=== PATIENT | female | born 1990 | race Caucasian/White ===

== ENCOUNTER → 2020-11-11 15:23 | Outpatient (CLI) | payer BC, SELFPAY ==
[2020-11-11 14:39] VITALS: BMI 40.4
[2020-11-11 15:45] LABS: Absolute Neutrophil Count 8.6 X10^3/uL (2.0-7.7); Basophil# 0.04 X10^3/uL; Basophil% 0.3 % (0-1); Eosinophil# 0.12 X10^3/uL; Eosinophils% 0.9 % (0-5); Hematocrit 46.1 % (37-47); Hemoglobin 15.1 g/dL (12.0-15.0); Lymphocyte % 26.3 % (19-41); Mean Corp Hgb Conc 32.8 g/dL (32-36); Mean Corpuscular Hgb 29.6 pg (27.0-32.0); Mean Corpuscular Volume 90.4 fL (81-99); Monocyte# 0.72 X10^3/uL; Monocyte% 5.6 % (0-10); NRBC Flagged by Analyzer 0 % (0-5); Neutrophil % 66.4 % (47-70); Platelet Count 350 K/mm3 (150-450); RBC Distribution Width CV 11.8 % (11.6-14.6); RBC Distribution Width SD 39.2 fl (35.1-43.9); White Blood Count 12.9 K/mm3 (4.4-11.0)
[2020-11-11 16:50] LABS: HIV - WCH Non-Reactive (Nonreactive); Hepatitis B Surface Antigen Non-Reactive (Nonreactive); Hepatitis C Antibody Non-Reactive (Nonreactive); Rubella IgG Reactive (Nonreactive); Syphilis Antibodies Non-reactive
[2020-11-11 18:09] LABS: Amphetamine Urine VISTA NEGATIVE (<1000 ng/mL); Barbiturate Urine VISTA NEGATIVE (< 200 ng/mL); Benzodiazepine Urine VISTA NEGATIVE (< 200 ng/mL); Cocaine Urine VISTA NEGATIVE (< 300 ng/mL); Ecstacy Urine VISTA NEGATIVE (< 500 ng/mL); Methadone Urine VISTA NEGATIVE (< 300 ng/mL); PCP Urine VISTA NEGATIVE (< 25 ng/mL); THC Urine VISTA NEGATIVE (< 50 ng/mL); Vista UDS pH Range 5
[2020-11-14 06:08] LABS: Chlamydia By Nucleic Acid AMP Negative (Negative)
[2020-11-14 16:28] LABS: Gonococcus By Nucleic Acid AMP Negative (Negative)
== END ==
PROVIDERS: Referring Provider Obstetrics & Gynecology; Visit Provider Obstetrics & Gynecology
DX: O09.90 Supervision of high risk pregnancy, unspecified, unspecified trimester (principal); Z3A.00 Weeks of gestation of pregnancy not specified
CPT/HCPCS: 36415; 80307; 85025; 86703; 86762; 86780; 86803; 86850; 86900; 86901; 87086; 87088; 87340; 87491; 87591

== ENCOUNTER → 2021-03-31 10:13 | Outpatient (CLI) | payer BC, SELFPAY ==
[2021-03-31 10:35] LABS: Absolute Lymphocyte Count 2.02 X10^3/uL (0.83-4.51); Absolute Neutrophil Count 8.9 X10^3/uL (2.0-7.7); Basophil# 0.03 X10^3/uL; Basophil% 0.3 % (0-1); Eosinophil# 0.21 X10^3/uL; Eosinophils% 1.8 % (0-5); Hemoglobin 12.7 g/dL (12.0-15.0); Lymphocyte # 2.02 X10^3/ul (0.83-4.51); Lymphocyte % 17.1 % (19-41); Mean Corp Hgb Conc 33.4 g/dL (32-36); Mean Corpuscular Hgb 30.2 pg (27.0-32.0); Mean Corpuscular Volume 90.5 fL (81-99); Mean Platelet Vol. 9.2 fl (6.2-12.0); Monocyte# 0.52 X10^3/uL; Monocyte% 4.4 % (0-10); NRBC Flagged by Analyzer 0 % (0-5); Neutrophil # 8.91 X10^3/uL (2.7-7.7); Neutrophil % 75.6 % (47-70); Platelet Count 296 K/mm3 (150-450); RBC Distribution Width CV 13.7 % (11.6-14.6); RBC Distribution Width SD 45.1 fl (35.1-43.9); White Blood Count 11.8 K/mm3 (4.4-11.0)
== END ==
PROVIDERS: Referring Provider Obstetrics & Gynecology; Visit Provider Obstetrics & Gynecology
DX: O09.90 Supervision of high risk pregnancy, unspecified, unspecified trimester (principal); Z3A.00 Weeks of gestation of pregnancy not specified
CPT/HCPCS: 36415; 85025

== ENCOUNTER → 2021-04-28 12:37 | Outpatient (CLI) | payer BC, SELFPAY ==
[2021-03-10 13:53] VITALS: BMI 38.7
--- NOTE | 2021-04-28 12:41 | US_ITS ---
STUDY: SECOND AND THIRD TRIMESTER OBSTETRICAL ULTRASOUND REASON FOR EXAM: Female, 30 years old growth -- 32 weeks LMP: 09/15/2020. TECHNIQUE: Transabdominal TECHNICAL QUALITY: Adequate. PRIOR ULTRASOUND: None. FINDINGS: There is a single intrauterine fetus. The fetus is in a cephalic presentation. There is demonstrated cardiac activity with a heart rate of 137 bpm. There is a normal amniotic fluid volume. The largest amniotic fluid pocket measures 6.1 cm. The amniotic fluid index (BELLA) is 15 cm. The placenta is anterior in location and is not low lying. There are Grade 0 placental changes. The cervix measures 5.6 cm in length. The adnexal regions are not visualized. BIOMETRY: BPD: 7.6 cm: 30 weeks, 2 days HC: 28.1 cm: 30 weeks, 5 days AC: 30.9 cm: 34 weeks, 5 days FL: 6.1 cm: 31 weeks, 5 days CI: 80% FL/BPD: 81% FL/HC: FL/AC: 20% HC/AC: 0.91 age by current US: 31 weeks, 1 days. GIANFRANCO by current US: 06/29/2021. Estimated weight: 2173 grams, +/- 326 grams, 76 %. Age by LMP: 32 weeks, 1 days. GIANFRANCO by LMP: 06/22/2021. US/OB Limited With Biometrics IMPRESSION: Single live uterine gestation with a mean gestational age of 31 weeks and 1 day. Electronically Signed: Srinivas Shepherd MD at 13:48 EDT , Service support ,
== END ==
PROVIDERS: Referring Provider Obstetrics & Gynecology; Visit Provider Obstetrics & Gynecology
DX: E11.65 Type 2 diabetes mellitus with hyperglycemia (principal)
CPT/HCPCS: 76816

== ENCOUNTER → 2021-05-05 12:11 | Outpatient (CLI) | payer BC, SELFPAY ==
[2021-03-10 13:53] VITALS: BMI 38.7
--- NOTE | 2021-05-05 12:13 | US_ITS ---
STUDY: SECOND AND THIRD TRIMESTER OBSTETRICAL ULTRASOUND - LIMITED REASON FOR EXAM: Female, 30 years old BELLA 33 weeks LMP: 09/15/2020 PRIOR ULTRASOUND: 04/28/2021. TECHNIQUE: Transabdominal Limited pelvic ultrasound was performed. TECHNICAL QUALITY: Adequate. FINDINGS: There is a single intrauterine fetus. The fetus is in a cephalic presentation. There is demonstrated cardiac activity with a heart rate of 148 bpm. There is a normal amniotic fluid volume. The largest amniotic fluid pocket measures 4.63 cm. The amniotic fluid index (BELLA) is 16.90 cm. The placenta is anterior. The cervix measures 3.6 cm in length. Age by LMP: 33 weeks, 1 days. GIANFRANCO by LMP: 06/22/2021. age by prior US: 32 weeks, 4 days. GIANFRANCO by prior US: 06/29/2021. US/OB Limited (No Biometrics) IMPRESSION: Single viable intrauterine with a heart rate of 148 bpm Electronically Signed: Wily Ugarte MD at 15:58 EDT Tel , Service support ,
== END ==
PROVIDERS: Referring Provider Obstetrics & Gynecology; Visit Provider Obstetrics & Gynecology
DX: Z34.93 Encounter for supervision of normal pregnancy, unspecified, third trimester (principal)
CPT/HCPCS: 76815

== ENCOUNTER → 2021-05-12 12:11 | Outpatient (CLI) | payer BC, SELFPAY ==
[2021-03-10 13:53] VITALS: BMI 38.7
--- NOTE | 2021-05-12 12:12 | US_ITS ---
STUDY: SECOND AND THIRD TRIMESTER OBSTETRICAL ULTRASOUND - LIMITED REASON FOR EXAM: Female, 30 years old BELLA only . Type 2 diabetes. LMP: 09/15/2020. PRIOR ULTRASOUND: Comparison is made with prior examination dated 05/05/2021. TECHNIQUE: Transabdominal TECHNICAL QUALITY: Adequate. FINDINGS: There is a single intrauterine fetus. The fetus is in a cephalic presentation. There is demonstrated cardiac activity with a heart rate of 160 bpm. There is a normal amniotic fluid volume. The largest amniotic fluid pocket measures 8.1 cm. The amniotic fluid index (BELLA) is 19.4 cm. The placenta is anterior in location and is not low lying. There are Grade 0 placental changes. BIOMETRY: Age by LMP: 34 weeks, 1 days. GIANFRANCO by LMP: 06/22/2021. US/OB Limited (No Biometrics) IMPRESSION: Normal amniotic fluid. Electronically Signed: Srinivas Shepherd MD at 15:26 EDT , Service support ,
== END ==
PROVIDERS: Referring Provider Obstetrics & Gynecology; Visit Provider Obstetrics & Gynecology
DX: E11.65 Type 2 diabetes mellitus with hyperglycemia (principal)
CPT/HCPCS: 76815

== ENCOUNTER → 2021-05-19 12:04 | Outpatient (CLI) | payer BC, SELFPAY ==
[2021-03-10 13:53] VITALS: BMI 38.7
--- NOTE | 2021-05-19 12:07 | US_ITS ---
STUDY: SECOND AND THIRD TRIMESTER OBSTETRICAL ULTRASOUND - LIMITED REASON FOR EXAM: Female, 30 years old BELLA TYPE 2 DM LMP: 09/15/2020. PRIOR ULTRASOUND: Comparison is made with prior study 05/12/2021. TECHNIQUE: Transabdominal TECHNICAL QUALITY: Adequate. FINDINGS: There is a single intrauterine fetus. The fetus is in a cephalic presentation. There is demonstrated cardiac activity with a heart rate of 142 bpm. There is a normal amniotic fluid volume. The largest amniotic fluid pocket measures 8.1 cm. The amniotic fluid index (BELLA) is 18.6 cm. The placenta is posterior and low lying but not previa in location. There are Grade 0 placental changes. The cervix measures 3.7 cm in length. BIOMETRY: Age by LMP: 35 weeks, 1 days. GIANFRANCO by LMP: 06/22/2021.. US/OB Limited (No Biometrics) IMPRESSION: Normal amniotic fluid index. Electronically Signed: Srinivas Shepherd MD at 15:51 EDT , Service support ,
== END ==
PROVIDERS: Referring Provider Obstetrics & Gynecology; Visit Provider Obstetrics & Gynecology
DX: O24.919 Unspecified diabetes mellitus in pregnancy, unspecified trimester (principal); Z3A.00 Weeks of gestation of pregnancy not specified
CPT/HCPCS: 76815

== ENCOUNTER → 2021-05-26 12:21 | Outpatient (CLI) | payer BC, SELFPAY ==
[2021-03-10 13:53] VITALS: BMI 38.7
--- NOTE | 2021-05-26 12:25 | US_ITS ---
STUDY: OBSTETRICAL ULTRASOUND - BIOPHYSICAL PROFILE REASON FOR EXAM: Female, 30 years old GROWTH -- 36 WKS -- abnl nst LMP: 09/15/2020 PRIOR ULTRASOUND: Comparison is made with prior study dated 05/19/2021 TECHNIQUE: Transabdominal TECHNICAL QUALITY: Adequate. FINDINGS: BIOPHYSICAL PROFILE: Breathing Movements (FBM): 2 Gross Body Movements (GBM): 2 Tone (FT): 2 Amniotic Fluid Volume (AFV): 2 TOTAL SCORE: IMPRESSION: Normal biophysical profile of 03/09. Electronically Signed: Srinivas Shepherd MD at 14:46 EDT , Service support , STUDY: OBSTETRICAL ULTRASOUND - BIOPHYSICAL PROFILE REASON FOR EXAM: Female, 30 years old GROWTH -- 36 WKS -- abnl nst LMP: 09/15/2020 PRIOR ULTRASOUND: Comparison is made with prior study dated 05/19/2021 TECHNIQUE: Transabdominal TECHNICAL QUALITY: Adequate. FINDINGS: BIOPHYSICAL PROFILE: Breathing Movements (FBM): 2 Gross Body Movements (GBM): 2 Tone (FT): 2 Amniotic Fluid Volume (AFV): 2 TOTAL SCORE: US/OB Limited With Biometrics
== END ==
PROVIDERS: Referring Provider Obstetrics & Gynecology; Visit Provider Obstetrics & Gynecology
DX: O28.8 Other abnormal findings on antenatal screening of mother (principal); Z3A.00 Weeks of gestation of pregnancy not specified
CPT/HCPCS: 76816; 76819

== ENCOUNTER → 2021-06-02 12:34 | Outpatient (CLI) | payer BC, SELFPAY ==
[2021-03-10 13:53] VITALS: BMI 38.7
--- NOTE | 2021-06-02 12:37 | US_ITS ---
STUDY: SECOND AND THIRD TRIMESTER OBSTETRICAL ULTRASOUND - LIMITED REASON FOR EXAM: Female, 30 years old BELLA -- 37 weeks LMP: 09/15/2020. PRIOR ULTRASOUND: Comparison is made with prior examination 05/26/2021. TECHNIQUE: Transabdominal TECHNICAL QUALITY: Adequate. FINDINGS: There is a single intrauterine fetus. The fetus is in a cephalic presentation. There is demonstrated cardiac activity with a heart rate of 145 bpm. There is a normal amniotic fluid volume. The largest amniotic fluid pocket measures 7.5 cm. The amniotic fluid index (BELLA) is 20.9 cm. The placenta is anterior in location and is not low lying. There are Grade 1 placental changes. Age by LMP: 37 weeks, 1 days. GIANFRANCO by LMP: 06/22/2021. US/OB Limited (No Biometrics) IMPRESSION: Normal amniotic fluid. Electronically Signed: Srinivas Shepherd MD at 15:32 EDT , Service support ,
== END ==
PROVIDERS: Visit Provider Obstetrics & Gynecology
DX: O24.913 Unspecified diabetes mellitus in pregnancy, third trimester (principal); Z3A.37 37 weeks gestation of pregnancy; E11.65 Type 2 diabetes mellitus with hyperglycemia
CPT/HCPCS: 76815; 87081

== ENCOUNTER → 2021-06-09 12:09 | Outpatient (CLI) | payer BC, SELFPAY ==
[2021-03-10 13:53] VITALS: BMI 38.7
--- NOTE | 2021-06-09 12:12 | US_ITS ---
STUDY: SECOND AND THIRD TRIMESTER OBSTETRICAL ULTRASOUND - LIMITED REASON FOR EXAM: Female, 30 years old BELLA only LMP: 09/15/2020. PRIOR ULTRASOUND: Comparison is made with prior study of 06/02/2021. TECHNIQUE: Transabdominal TECHNICAL QUALITY: Adequate. FINDINGS: There is a single intrauterine fetus. The fetus is in a cephalic presentation. There is demonstrated cardiac activity with a heart rate of 157 bpm. There is a normal amniotic fluid volume. The largest amniotic fluid pocket measures 6.7 cm. The amniotic fluid index (BELLA) is 16.5 cm. BIOMETRY: Age by LMP: 38 weeks, 1 days. GIANFRANCO by LMP: 06/22/2021. US/OB Limited (No Biometrics) IMPRESSION: Normal amniotic fluid. Electronically Signed: Srinivas Shepherd MD at 13:27 EST , Service support ,
== END ==
PROVIDERS: Referring Provider Obstetrics & Gynecology; Visit Provider Obstetrics & Gynecology
DX: E11.65 Type 2 diabetes mellitus with hyperglycemia (principal)
CPT/HCPCS: 76815

== ENCOUNTER 2021-06-15 19:15 | Inpatient (IN) | payer BC, SELFPAY ==
[2021-06-15] VITALS (8 sets, daily range): BP systolic 129–161; BP diastolic 80–101; PULSE 102–118; TEMP 35.7–36.7; O2SAT 96–98; BMI 45.7
[2021-06-15] MEDS: Lactated Ringers 1,000 ML 50 ML IV (19:55)
[2021-06-15 20:16] LABS: Bedside Glucose 73 mg/dL (70-110)
[2021-06-15 20:18] LABS: Absolute Lymphocyte Count 2.67 X10^3/uL (0.83-4.51); Basophil# 0.02 X10^3/uL; Basophil% 0.2 % (0-1); Eosinophil# 0.09 X10^3/uL; Eosinophils% 0.7 % (0-5); Hematocrit 35.7 % (37-47); Hemoglobin 12.2 g/dL (12.0-15.0); Lymphocyte # 2.67 X10^3/ul (0.83-4.51); Lymphocyte % 21.1 % (19-41); Mean Corp Hgb Conc 34.2 g/dL (32-36); Mean Corpuscular Hgb 30.2 pg (27.0-32.0); Mean Corpuscular Volume 88.4 fL (81-99); Mean Platelet Vol. 10.1 fl (6.2-12.0); Monocyte% 6.3 % (0-10); NRBC Flagged by Analyzer 0 % (0-5); Neutrophil # 8.98 X10^3/uL (2.7-7.7); Neutrophil % 70.9 % (47-70); Platelet Count 285 K/mm3 (150-450); RBC Distribution Width CV 13.9 % (11.6-14.6); RBC Distribution Width SD 44.8 fl (35.1-43.9); Red Blood Count 4.04 M/mm3 (4.2-5.4); White Blood Count 12.7 K/mm3 (4.4-11.0)
[2021-06-15 21:36] LABS: Bedside Glucose 57 mg/dL (70-110)
[2021-06-15] MEDS: miSOPROStol 25 MCG TABLET VAGINAL (21:39)
[2021-06-15 21:51] LABS: Bedside Glucose 68 mg/dL (70-110)
[2021-06-15 22:06] LABS: Bedside Glucose 68 mg/dL (70-110)
[2021-06-15 22:21] LABS: Bedside Glucose 69 mg/dL (70-110)
[2021-06-16] VITALS (102 sets, daily range): BP systolic 109–161; BP diastolic 54–97; PULSE 69–244; TEMP 36.1–36.9; O2SAT 81–100
[2021-06-16] MEDS: miSOPROStol 25 MCG TABLET VAGINAL ×2 (01:51→06:16)
[2021-06-16 02:00] LABS: Bedside Glucose 77 mg/dL (70-110)
[2021-06-16 05:51] LABS: Bedside Glucose 87 mg/dL (70-110)
--- NOTE | 2021-06-16 07:25 | HP.PCM.OB_ITS ---
HPI - General General Date of Admission: 06/15/21 HPI Narrative ROBIN ALMAGUER, is a 30 F who presentsfor IOL sec diabetes Maternal Data Information GIANFRANCO Calculator Estimated Delivery Date Method Current WG Current Estimate 06/22/21 LMP (Certain) 39w 1d Other Estimates 06/26/21 Ultrasound #1 38w 4d PFSH PFS Medical History (Updated 06/15/21 @ 20:25 by Lexis Vera) Anxiety Diabetes in Diabetes mellitus Diabetes type 2, uncontrolled History of tetanus, diphtheria, and acellular pertussis booster vaccination (Tdap) Low-lying placenta in second trimester Obesity Home Medications metformin 500 mg tablet 500 mg PO DAILY 11/05/20 [History Last Taken 06/15/21 08:00] multivitamin no.47-iron fum 27 mg-folate no.1 1 mg-dha 300 mg capsule 1 cap PO DAILY 11/05/20 [History Last Taken 06/13/21 08:00] sertraline 50 mg tablet 50 mg PO DAILY 11/05/20 [History Last Taken 06/15/21 08:00] blood sugar diagnostic #10 each 11/14/20 [History Last Taken Unknown] blood-glucose meter #1 each 11/14/20 [History Last Taken Unknown] lancets #100 each 11/14/20 [History Last Taken Unknown] pen needle, diabetic 29 gauge x 1/2 #100 each 11/14/20 [History Last Taken Unknown] pen needle, diabetic 32 gauge x 5/32 #150 each 11/14/20 [Rx Last Taken Unknown] blood pressure test kit-large #1 ea 12/09/20 [Rx Last Taken Unknown] insulin NPH isoph U-100 human [Humulin N NPH Insulin KwikPen] 75 unit SUBCUT QHS 06/15/21 [History Last Taken Unknown] insulin lispro [Humalog KwikPen Insulin] 33 unit SC TID 06/15/21 [History Last Taken 06/15/21 16:30] Allergy/AdvReac Type Severity Reaction Status Date / Time No Known Allergies Allergy Verified 06/11/21 11:33 Family History Mother Diabetes type 2 Hypertension Father Hyperlipemia Sister Diabetes type 2 Grandmother Diabetes type 2 Surgical History (Updated 06/15/21 @ 20:25 by Lexis Vera) History of surgery History of tonsillectomy and adenoidectomy Social History adopted: No household members: family housing: house 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 pets and animals: No history of recent travel: No sexually active: Yes Smoking Status: Never smoker second hand exposure: No alcohol intake: never substance use type: does not use seatbelt use: always do you feel safe at home: Yes additional social history: - Slade ([facility] [place]) History 1 Elective abortions Hx Para 0 Spontaneous abortions Hx # Term Pregnancies Ectopic pregnancies Hx # Pregnancies Multiple births # of living children Visit Details Expected Delivery Route/Plan Labor Preferences- CB/BF classes: encouraged labor support person: Slade labor intervention preferences: pain management options preferred: epidural cut cord/dad catch: yes : no PP control planned: discussed discussed possible routes of delivery and associated risks: [] special requests: [] Plans covid status: .vaccine flu vaccine: given tdap vaccine: given rhogam: na LARC form signed: yes movement and labor precautions reviewed. Problem list reviewed and updated with the most current plan of care details and appropriate orders placed. Relevant counseling for the gestational age provided. Continue routine care and follow up unless otherwise noted in visit notes/problem list details OB Flowsheet Initial Weight: Not Recorded Date -?-?-?-?-?-?-?-?-?-?-?-?- EGA Weight BP Urine Prot -?-?-?-?-?-?-?-?-?-?-?-?- Glucose FHR FuHt Pres Dilation -?-?-?-?-?-?-?-?-?-?-?-?- Effaced St Visit Note 11/11/20 -?-?-?-?-?-?-?-?-?-?-?-?- 8w 1d 258 lb 2 oz 150/94 -?-?-?-?-?-?-?-?-?-?-?-?- 155 -?-?-?-?-?-?-?-?-?-?-?-?- GP - CRL 13mm co nsistent with LMP. 12/09/20 -?-?-?-?-?-?-?-?-?-?-?-?- 12w 1d 260 lb 130/90 -?-?-?-?-?-?-?-?-?-?-?-?- 163 -?-?-?-?-?-?-?-?-?-?-?-?- GP - no cramping or bleeding. Anatomy scan ordered. 01/13/21 -?-?-?-?-?-?-?--?-?-?-?-?- 17w 1d 260 lb 4 oz 128/72 Trac e -?-?-?-?-?-?-?-?-?-?-?-?- Negative 160 -?-?-?-?-?-?-?-?-?-?-?-?- MH-No VB, LOF. Anatomy 01/30. BS WNL, follow with Dr Dunne 02/10/21 -?-?-?-?-?-?-?-?-?-?-?-?- 21w 1d 263 lb 122/88 Negative -?-?-?-?-?-?-?-?-?-?-?-?- Negative 150 -?-?-?-?-?-?-?-?-?-?-?-?- GP - no ctx, LOF , VB, DFM. Discussed low-lying placenta. 03/10/21 -?-?-?-?-?-?-?-?-?-?-?-?- 25w 1d 270 lb 2 oz 130/90 Nega tive -?-?-?-?-?-?-?-?-?-?-?-?- Negative 155 -?-?-?-?-?-?-?-?-?-?-?-?- GP - no LOF, VB, DFM, ctx. Discussed testing for DM2. 03/31/21 -?-?-?--?-?-?-?-?-?-?-?-?- 28w 1d 274 lb 2 oz 136/78 Trac e -?-?-?-?-?-?-?-?-?-?-?-?- Negative 151 28 -?-?-?-?-?-?-?-?-?-?-?-?- MH-No VB, LOF. G ood FM. Now on insulin. BS WNL. US 04/03 recheck placenta. Echo 04/04 to complete heart views. testing scheduled. [place], tdap. CBC 04/14/21 -?-?-?-?-?-?-?-?-?-?-?-?- 30w 1d 271 lb 4 oz 116/82 Nega tive -?-?-?-?-?-?-?-?-?-?-?-?- Negative 150 30 -?-?-?-?-?-?-?-?-?-?-?-?- GP - no LOF, VB, dFM, ctx. NSTs and growths to start next visit. BGTs now well controlled. 04/28/21 -?-?-?-?-?-?-?-?-?-?-?-?- 32w 1d 274 lb 120/84 Negative -?-?-?-?-?-?-?-?-?-?-?-?- Negative 130 -?-?-?-?-?-?-?-?-?-?-?-?- SM- nst today no vb lof good fm no regular ctx SM- nst today no vb lof good fm no regular ctx BS controlled 04/30/21 -?-?-?-?-?-?-?-?-?-?-?--?- 32w 3d 276 lb 110/80 -?-?-?-?-?-?-?-?-?-?-?-?- 130 -?-?-?-?-?-?-?-?-?-?-?-?- SM- nst 05/05/21 -?-?-?-?-?-?-?-?-?-?-?-?- 33w 1d 278 lb 2 oz 126/86 Nega tive -?-?-?-?-?-?-?-?-?-?-?-?- Negative 130 33 -?-?-?-?-?-?-?-?-?-?-?-?- GP - no ctx, LOF , VB, DFM. NST reactive. Still having elevated fasting BGTs 05/07/21 -?-?-?-?-?-?-?-?-?-?-?-?- 33w 3d 277 lb 8 oz 110/78 Nega tive -?-?-?-?-?-?-?-?-?-?-?-?- Negative 140 -?-?-?-?-?-?-?-?-?-?-?-?- MH-NST only reac tive 05/12/21 -?-?-?-?-?-?-?-?-?-?-?-?- 34w 1d 277 lb 8 oz 128/76 Trac e -?-?-?-?-?-?-?-?-?-?-?-?- Negative 150 35 -?-?-?-?-?-?-?-?-?-?-?-?- MH-Reactive NST. No VB, LOF. FBS some high-she discussed with Dr Dunne. Growth US and flu vaccine today 05/14/21 -?-?-?-?-?-?-?-?-?-?-?-?- 34w 3d 278 lb -?-?-?-?-?-?-?-?-?-?-?-?- 150 -?-?-?-?-?-?-?-?-?-?-?-?- GP - NST only. R eactive. 05/19/21 -?-?-?-?-?-?-?-?-?-?-?-?- 35w 1d 283 lb 2 oz 124/88 -?-?-?-?-?-?-?-?-?-?-?-?- 140 -?-?-?-?-?-?-?-?-?-?-?-?- SM- nst reactive 05/21/21 -?-?-?-?-?-?-?-?-?-?-?-?- 35w 3d 284 lb -?-?-?-?-?-?-?-?-?-?-?-?- 145 -?-?-?-?-?-?-?-?-?-?-?-?- SM- no vb lof go of dm no reuglar ctx 05/26/21 -?-?-?-?-?-?-?-?-?-?-?-?- 36w 1d 239 lb 137/87 Negative -?-?-?-?-?-?-?-?-?-?-?-?- Negative -?-?-?-?-?-?-?-?-?-?-?-?- SM nst done bpp ordered 05/28/21 -?-?-?-?-?-?-?-?-?-?-?-?- 36w 3d 291 lb 128/84 Trace -?-?-?-?-?-?-?-?-?-?-?-?- Negative 140 -?-?-?-?-?-?-?-?-?-?-?-?- JV- NST reactive 06/02/21 -?-?-?-?-?-?-?-?-?-?-?-?- 37w 1d 289 lb 120/88 -?-?-?-?-?-?-?-?-?-?-?-?- 140 -?-?-?-?-?-?-?-?-?-?-?-?- SM- no vb lof go od fm no regular ctx gbs today 06/04/21 -?-?-?-?-?-?-?-?-?-?-?-?- 37w 3d 291 lb 132/88 -?-?-?-?-?--?-?-?-?-?-?-?- 140 -?-?-?-?-?-?-?-?-?-?-?-?- MH-NST only reac tive 06/09/21 -?-?-?-?-?-?-?-?-?-?-?-?- 38w 1d 291 lb 102/86 Negative -?-?-?-?-?-?-?-?-?-?-?-?- Negative -?-?-?-?-?-?-?-?-?-?-?-?- 06/11/21 -?-?-?-?-?-?-?-?-?-?-?-?- 38w 3d 290 lb 118/80 Negative -?-?-?-?-?-?-?-?-?-?-?-?- Negative -?-?-?-?-?-?-?-?-?-?-?-?- 06/15/21 -?-?-?-?-?-?-?-?-?-?-?-?- 39w 0d 292 lb 161/101 133/82 129/80 129/83 122/79 129/80 -?-?-?-?-?-?-?-?-?-?-?-?- -?-?-?-?-?-?-?-?-?-?-?-?- NST FHR Rate Baby A Baseline: 130 Variability:: Moderate Accelerations:: 15 x 15 Decelerations:: None NST Reactive:: Yes FHR Category:: Category I Uterine Activity:: irregular ROS Constitutional Constitutional: Reports systems reviewed and no addt'l complaints, except as documented Eyes Eyes: Denies change in vision ENT HEENT: Reports systems reviewed and no addt'l complaints, except as documented; Denies headache(s) Cardiovascular Cardiovascular: Reports systems reviewed and no addt'l complaints, except as documented; Denies chest pain or dyspnea Respiratory/Chest Respiratory/Chest: Reports systems reviewed and no addt'l complaints, except as documented Gastrointestinal Gastrointestinal: Reports systems reviewed and no addt'l complaints, except as documented; Denies abdominal pain Genitourinary Genitourinary: Reports systems reviewed and no addt'l complaints, except as documented, contractions Details: present (irregular) and movement Details: present; Denies dysuria or genital lesions Musculoskeletal Musculoskeletal: Reports systems reviewed and no addt'l complaints, except as documented Neurologic Neurologic: Reports systems reviewed and no addt'l complaints, except as documented Endocrine Endocrinology: Reports systems reviewed and no addt'l complaints, except as documented Vital Signs Vital Signs Vital Signs: 06/15/21 19:55 06/15/21 19:57 06/15/21 20:00 Temperature 98.1 F Temperature Source Temporal Pulse Rate 118 H Blood Pressure 161/101 H BP Systolic 161 BP Diastolic 101 Pulse Ox 97 98 06/15/21 20:11 06/15/21 20:26 06/15/21 22:58 Temperature Temperature Source Pulse Rate 116 H 107 H 102 H Blood Pressure 133/82 H 129/80 H 129/83 H BP Systolic 133 129 129 BP Diastolic 82 80 83 Pulse Ox 06/15/21 22:59 06/15/21 23:00 06/16/21 01:53 Temperature 96.3 F L Temperature Source Temporal Pulse Rate 97 Blood Pressure 122/79 H BP Systolic 122 BP Diastolic 79 Pulse Ox 96 06/16/21 01:55 06/16/21 05:28 Temperature 97.0 F L 97.0 F L Temperature Source Temporal Temporal Pulse Rate 88 Blood Pressure 129/80 H BP Systolic 129 BP Diastolic 80 Pulse Ox 98 Weight Weight: 292 lb Body Mass Index (BMI) 45.7 Physical Exam Const alert, oriented x3, no apparent distress and healthy appearing HEENT normocephalic and moist oral mucous membranes Head and Scalp: atraumatic Neck full ROM, no lymphadenopathy, supple and thyroid normal General: trachea midline Lymph Lymphatic: no lymphadenopathy noted Chest inspection of chest normal Resp normal respiratory effort Cardio regular rate GI normal to inspection, nondistended, normoactive bowel sounds, soft to palpation and non-tender Inspection: gravid external exam normal Manual OB Exam: estimated gestational size appropriate, presentation cephalic, dilated, effaced and station Extremity normal to inspection General Extremity: Negative for edema Skin no rashes or lesions noted Neuro no focal motor deficits and deep tendon reflexes 2+ bilaterally Motor Exam: strength 5/5 throughout and clonus absent Psych mental status grossly normal Labs Labs Labs: Blood Type O POSITIVE Antibody Screen NEGATIVE Hct 35.7 % (37-47) L Hgb 12.2 g/dL (12.0-15.0) Obstetrics US Syphilis Total Ab Non-reactive Rubella IgG Antibody Reactive (Nonreactive) Hep Bs Antigen Non-Reactive (Nonreactive) Neisseria gonorrhoeae DNA (NENITA) Negative (Negative) HIV 1&2 Antibody Non-Reactive (Nonreactive) Assessment & Plan (1) : QUALIFIERS: Weeks of gestation: 38 weeks Qualified Code(s): Z3A.38 - 38 weeks gestation of COMMENT: declines genetic, carrier and NTD, anatomy nl. GBS neg (2) Supervision of high risk , antepartum: COMMENT: PRR GIANFRANCO: 06/22/21 Boy! Ernie Spouse: Slade (has custody of 11yr old twin nieces [place] and [place]) (3) Family history of chromosomal abnormality: COMMENT: Slade's brother has Trisomy 21. Declines genetic testing. (4) Obesity: QUALIFIERS: Obesity type: due to excess calories Obesity classification: adult class 2 (BMI 35 - 39.9) Serious obesity comorbidity presence: with serious comorbidity Body mass index: BMI 39.0-39.9 Qualified Code(s): E66.01 - Morbid (severe) obesity due to excess calories; Z68.39 - Body mass index [BMI] 39.0-39.9, adult COMMENT: weekly nsts, growth usq 4, 06/02 BELLA nl (5) Diabetes in : QUALIFIERS: Diabetes in type: pre-existing, type 2 Trimester: third trimester Qualified Code(s): O24.113 - Pre-existing type 2 diabetes mellitus, in , third trimester COMMENT: normal echo (6) Anxiety: COMMENT: Zoloft , encouraged counseling. (7) Diabetes type 2, uncontrolled: QUALIFIERS: Glycemic state: with hyperglycemia Qualified Code(s): E11.65 - Type 2 diabetes mellitus with hyperglycemia COMMENT: see Dr Dunne. insulin. 2x weekly NST, growth us q 4 weeks IOL by 39 PLAN: Patient presents IOL, plan management for with cytotec then pitocin. Pain management: plans epidural. GBS negative. Management of any complications: diabetes- check bs q 1 hr in active and 4 hrs in latent I have reviewed the [facility] and made any clinically relevant updates.
[2021-06-16] MEDS: 0.9% Normal Saline Single 100 ML IV.SOLN. INTRA-UTER (08:13)
[2021-06-16 09:51] LABS: Bedside Glucose 111 mg/dL (70-110)
[2021-06-16] MEDS: Oxytocin 30 units/NS 500 ml 30 UNITS/500 ML IV.SOLN IV (10:16)
[2021-06-16 10:56] LABS: Bedside Glucose 95 mg/dL (70-110)
[2021-06-16] MEDS: Lactated Ringers 1,000 ML 50 ML IV (11:06)
[2021-06-16] MEDS: Lactated Ringers 500 ML 999 ML IV (14:01)
[2021-06-16 14:20] LABS: Bedside Glucose 96 mg/dL (70-110)
[2021-06-16] MEDS: fentaNYL-bupivacaine (epidural) 100 ML BAG EPIDURAL ×2 (15:23→19:44)
[2021-06-16 15:55] LABS: Bedside Glucose 89 mg/dL (70-110)
--- NOTE | 2021-06-16 16:26 | PN_ITS ---
Progress Note s/p epi comfortable arom clear fluid internals placed pit at 14 current tracing: FHT: 140 Moderate variability reactive no decelerations category I tracing [place]: regular Contractions reviewed tracing abnormalities since last note: no significant A/P: pit IOL for diabetes, follow BS, exp management /-2
[2021-06-16 17:16] LABS: Bedside Glucose 78 mg/dL (70-110)
[2021-06-16 18:36] LABS: Bedside Glucose 80 mg/dL (70-110)
[2021-06-16 19:06] LABS: Bedside Glucose 78 mg/dL (70-110)
[2021-06-16] MEDS: Lactated Ringers 1,000 ML 200 ML IV (19:23)
[2021-06-16 20:16] LABS: Bedside Glucose 86 mg/dL (70-110)
[2021-06-16] MEDS: Lactated Ringers 1,000 ML 999 ML IV ×2 (20:30→22:05)
[2021-06-16 21:16] LABS: Bedside Glucose 103 mg/dL (70-110)
[2021-06-16 22:16] LABS: Bedside Glucose 97 mg/dL (70-110)
[2021-06-16 23:26] LABS: Bedside Glucose 87 mg/dL (70-110)
[2021-06-17] VITALS (40 sets, daily range): BP systolic 98–133; BP diastolic 56–88; PULSE 67–144; RESP 16; TEMP 36.2–37; O2SAT 89–98
[2021-06-17 00:26] LABS: Bedside Glucose 93 mg/dL (70-110)
[2021-06-17] MEDS: Oxytocin 30 units/NS 500 ml 30 UNITS/500 ML IV.SOLN 10 UNITS IV (00:59)
[2021-06-17] MEDS: fentaNYL-bupivacaine (epidural) 100 ML BAG EPIDURAL (01:05)
[2021-06-17] MEDS: Lactated Ringers 1,000 ML 200 ML IV (01:16)
[2021-06-17 01:21] LABS: Bedside Glucose 84 mg/dL (70-110)
[2021-06-17 02:21] LABS: Bedside Glucose 89 mg/dL (70-110)
[2021-06-17 03:16] LABS: Bedside Glucose 89 mg/dL (70-110)
[2021-06-17] MEDS: Ondansetron 4 MG/2 ML Vial IV (03:37)
[2021-06-17 04:21] LABS: Bedside Glucose 126 mg/dL (70-110)
[2021-06-17] MEDS: Oxytocin 30 units/NS 500 ml 30 UNITS/500 ML IV.SOLN 334 UNITS IV (04:51)
[2021-06-17] MEDS: Carboprost Tromethamine 250 MCG/ML Ampul IM (05:00)
--- NOTE | 2021-06-17 05:03 | OP.PCM_ITS ---
Assessment & Plan (1) : QUALIFIERS: Weeks of gestation: 38 weeks Qualified Code(s): Z3A.38 - 38 weeks gestation of COMMENT: declines genetic, carrier and NTD, anatomy nl. GBS neg (2) Supervision of high risk , antepartum: COMMENT: PRR GIANFRANCO: 06/22/21 Boy! Ernie Spouse: Slade (has custody of 11yr old twin nieces [place] and [place]) (3) Family history of chromosomal abnormality: COMMENT: Slade's brother has Trisomy 21. Declines genetic testing. (4) Obesity: QUALIFIERS: Obesity type: due to excess calories Obesity classification: adult class 2 (BMI 35 - 39.9) Serious obesity comorbidity presence: with serious comorbidity Body mass index: BMI 39.0-39.9 Qualified Code(s): E66.01 - Morbid (severe) obesity due to excess calories; Z68.39 - Body mass index [BMI] 39.0-39.9, adult COMMENT: weekly nsts, growth usq 4, 06/02 BELLA nl (5) Diabetes in : QUALIFIERS: Diabetes in type: pre-existing, type 2 Trimester: third trimester Qualified Code(s): O24.113 - Pre-existing type 2 diabetes mellitus, in , third trimester COMMENT: normal echo (6) Anxiety: COMMENT: [place] , encouraged counseling. (7) Diabetes type 2, uncontrolled: QUALIFIERS: Glycemic state: with hyperglycemia Qualified Code(s): E11.65 - Type 2 diabetes mellitus with hyperglycemia COMMENT: see Dr Dunne. insulin. 2x weekly NST, growth us q 4 weeks IOL by 39 (8) Vaginal delivery: COMMENT: IOL GDM SM 39 boy Ernie Maternal Data Information GIANFRANCO Calculator Estimated Delivery Date Method Current WG Current Estimate 06/22/21 LMP (Certain) 39w 2d Other Estimates 06/26/21 Ultrasound #1 38w 5d Vaginal Delivery Operative Information Date of Procedure: 06/17/21 Pre-Operative Diagnosis: IOL gdma2 Post-Operative Diagnosis: same Surgery / Procedure Performed: Spontaneous Vaginal Delivery Type of Anesthesia: Epidural Special Medications: none Estimated Blood Loss: 400 Fluids Replaced: crystalloid Findings Description of Procedure: Patient began pushing and delivered the head in the [GERARDO] presentation. The head was delivered atraumatically . The anterior and posterior shoulders delivered without complication followed by the rest of the infant and the was placed on the maternal abdomen. Delayed cord clamping was employed for approximately 60 seconds. Cord was clamped and cut and gentle traction was applied to the cord and the placenta delivered spontaneously immediately following it was noted to be intact with three-vessel cord. The perineum and vagina were inspected and noted to have a small first-degree perineal laceration. EBL was 400 cc with mild uterine atony treated with Methergine and Hemabate. Patient and infant tolerated delivery well. Presentation: GERARDO Amniotic Membrane Rupture Type: Artificial Amniotic Fluid Description: Clear Placental Delivery Description: Spontaneous Placenta Disposition: [facility] Cord Vessel Description: 3 Vessels Cord Entanglement: None A Gender: Male Delayed Cord Clamping: Yes Post Vaginal Delivery Medications Given After Delivery: IV Pitocin Episiotomy Description: None Laceration: Perineal Extension/lac and 1st degree Complication Complications: None Procedures Urinary/Genital [id number]: [id number] Vaginal Delivery [facility]
--- NOTE | 2021-06-17 05:05 | PCM.DC ---
Discharge Instructions Diet Discharge Diet: No restrictions Activity Discharge Activity: Return to Normal Activity, May Not Drive (while taking narcotic pain medications.) and May Shower May resume sexual activity in: 4-6 weeks Dressing / Incision Call your doctor if your incision/area has: Continuous Slow Oozing, Sudden Increased Bleeding, Increased Pain/ Swelling, Increased Redness and Foul Smelling Discharge Follow Up Care Please Follow Up With: Mae Reeves MD When: Call [phone] to make an appointment with your doctor in 6 weeks. If you had elevated blood pressure or 4th degree laceration, you will need to be seen in 2 weeks. Test Results: Test results from this visit will be discussed in further detail at your follow-up appointment, if applicable. Discharge Plan Admission Admit Date/Time: 06/15/21 19:15 Primary Reason for Your Visit: vaginal delivery Attending Provider: Mae Reeves Primary Care Provider: Care Physician,No Primary Discharge Orders/Prescriptions Prescriptions: No Action metformin 500 mg tablet 500 mg PO DAILY RF: 0 sertraline [Zoloft] 50 mg tablet 50 mg PO DAILY RF: 0 PNV-DHA 27 mg iron-1 mg -300 mg capsule 1 cap PO DAILY RF: 0 (DME) blood pressure test kit-large Kit See Rx Instructions .ROUTE .MEDSUPPLY Qty: 1 RF: 0 (DME) blood sugar diagnostic Strip See Rx Instructions strip .ROUTE .MEDSUPPLY Qty: 10 RF: 0 (DME) pen needle, diabetic 29 gauge x 1/2 needle See Rx Instructions ea .ROUTE .MEDSUPPLY Qty: 100 RF: 0 (DME) lancets Misc See Rx Instructions each .ROUTE .MEDSUPPLY Qty: 100 RF: 0 (DME) blood-glucose meter Misc See Rx Instructions ea .ROUTE .MEDSUPPLY Qty: 1 RF: 0 (DME) pen needle, diabetic [BD Ultra-Fine Kiah Pen Needle] 32 gauge x 5/32 needle See Rx Instructions .ROUTE .MEDSUPPLY Qty: 150 RF: 7 insulin lispro [Humalog KwikPen Insulin] 100 unit/mL insulin pen 33 unit SC TID RF: 0 Humulin N NPH Insulin KwikPen 100 unit/mL (3 mL) insulin pen 75 unit subcut QHS RF: 0 Referrals / Follow Up: Care Physician,No Primary [Primary Care Provider] - Disposition Disposition (needs filled in before D/C Order can be placed): Home, Self Care
[2021-06-17] MEDS: Lactated Ringers 1,000 ML 999 ML IV (05:10)
[2021-06-17] MEDS: proCHLORPERazine 10 MG/2 ML Vial IV (05:33)
[2021-06-17 05:56] LABS: Bedside Glucose 157 mg/dL (70-110)
[2021-06-17] MEDS: Methylergonovine 0.2 MG/ML Ampul IM (06:37)
[2021-06-17] MEDS: metFORMIN (XR) 500 MG Tablet PO ×2 (07:06→17:56)
[2021-06-17] MEDS: 0.9% Saline Lock 10 ML Syringe IV (07:37)
[2021-06-17] MEDS: Sertraline 50 MG Tablet PO (09:58)
[2021-06-17 11:36] LABS: Bedside Glucose 203 mg/dL (70-110)
--- NOTE | 2021-06-17 12:20 | NURSING ---
metformin XL was verified with Dr Reeves to give 500mg BID. Luigi in pharmacy aware.
[2021-06-17] MEDS: Insulin Lispro 100 UNIT/ML INSULN.PEN SC (12:33)
--- NOTE | 2021-06-17 16:00 | CASEMGMT ---
Social Work Brief Assessment Labor and Delivery Unit Patient Address: [address] [place] [address] Phone number: [phone] Date of Referral/Notification: 06/17/2021 Time of Referral: 911 Referred By: Dr. Jenkins Date of Intervention: 06/17/2021 Time of Intervention: 1600 Reason for Referral: Maternal history of anxiety Informant: Medical record and mother of baby (MOB) India Hwang; father of baby (FOB) Slade Hwang present for conversation. History: MOB is a 29-year-old female, to the FOB being. MOB is 1, para 0 now 1 after delivering baby boy Rob Hwang on 06/17/2021. MOB and FOB also have full custody FOB 11-year-old twin nieces, named Camden and Believe. MOB and FOB have had custody for the last 5 to 6 years. MOB was diagnosed with diabetes type 2 several weeks prior to knowledge of . Both parents are gainfully employed. FOB is the parts sales manager for a local [employer]. 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 MOB endorses history of anxiety prior to but at times flared up during . Started on Zoloft timeframe. Denies any history of suicidal ideation, planning, or attempts. During private conversation with the MOB, MOB denied any safety concerns or domestic violence issues in relationship with the FOB. MOB and FOB deny any substance use issues. Maternal drug screen negative on 11/11/2020. Assessment: Met with the MOB and FOB in room, introducing to self and social work role. Both parents cooperative and engaged, pleasant in conversation. Met privately with MOB to complete Amery depression. Score was a 5 which is below the threshold for depression. MOB plans to remain on antidepressant medication. Open to counseling should symptoms arise and become distressing. MOB reports to have good support system both practically and emotionally. Reports to speak with the FOB and the MOB mom for emotional support. FOB will be off the remainder of this week to help with transition home. Both sides of the family, including grandparents are willing to help out when needed. MOB and FOB report to have necessary supplies to care for the baby. Parents are planning to breast-feed. No voiced concerns with home-going. Denies any needs for referrals to services such as WIC. Declines help me grow referral. Accepted education on shaken baby prevention and safe sleeping. Educated to mood and anxiety disorders, risk factors, and importance of seeking out help and support. Both parents presented as receptive to conversation, as evidenced by discussion and good eye contact. Observed MOB to hold the baby and attempt feeding throughout social work visit. MOB was gentle and appropriate in the care of baby. No voiced concerns by nursing staff regarding parent-child interactions or bonding. Plan: MOB and will discharge home when medically stable. Provided packet on mood and anxiety disorders, including local resources, reading, and online resources. No further needs requested or indicated. -RUBI Kim, CHARISSE *This note was generated with [employer] dictation software. It may contain incorrect words, spelling, and punctuation that were not noted in review of the chart prior to signing*
[2021-06-17] MEDS: Acetaminophen 500 MG Tablet 1000 MG PO (16:28)
[2021-06-17 18:10] LABS: Bedside Glucose 147 mg/dL (70-110)
[2021-06-17 22:56] LABS: Bedside Glucose 130 mg/dL (70-110)
[2021-06-18] VITALS (12 sets, daily range): BP systolic 123–126; BP diastolic 77–86; PULSE 100–131; RESP 16–18; TEMP 36.1–36.6; O2SAT 95–98
--- NOTE | 2021-06-18 08:10 | PCM.PN.OB ---
Subjective Subjective Patient doing well without complaints. Tolerating PO. Ambulating and voiding without difficulty. Feeding well. Denies chest pain, shortness of breath, calf pain/swelling, fevers, chills, lightheadedness. Objective Data Objective Data Vital Signs: Vital Signs Temp Pulse Resp BP Pulse Ox 96.9 F L 108 H 18 126/77 H 95 06/18/21 07:58 06/18/21 07:59 06/18/21 07:58 06/18/21 07:59 06/18/21 07:58 Oxygen Delivery Method Room Air Weight: 292 lb Body Mass Index (BMI) 45.7 Intake & Output: Intake and Output for Last 24 Hours 06/16/21 06/17/21 06/18/21 23:59 23:59 23:59 Intake Total 5916.19 / 5916.19 3385.23 / 3385.23 Output Total 500 / 500 400 / 400 Balance 5416.19 / 5416.19 2985.23 / 2985.23 Lab / Micro Data Result Diagrams: 06/15/21 19:55 Labs: Laboratory Results - last 24 hr 06/17/21 11:14: POC Glucose 203 H 06/17/21 18:01: POC Glucose 147 H 06/17/21 22:49: POC Glucose 130 H Micro: Microbiology 06/15/21 20:00 Nasal Secretion SARS-CoV-2 Antigen (Rapid) - Final Physical Exam Const alert and oriented x3 HEENT normocephalic Eyes PERRL Neck full ROM Resp normal respiratory effort GI soft to palpation GI Narrative: FF below U Assessment & Plan (1) Vaginal delivery: COMMENT: IOL GDM SM 39 boy Ernie (2) Diabetes in : QUALIFIERS: Diabetes in type: pre-existing, type 2 Trimester: third trimester Qualified Code(s): O24.113 - Pre-existing type 2 diabetes mellitus, in , third trimester COMMENT: normal echo; follows with Dr Dunne PLAN: s/p PPD # 1 1. routine post delivery care 2. bottle feeding- support given 3. rh positive 4. rubella immune 5. Home today
[2021-06-18] MEDS: metFORMIN (XR) 500 MG Tablet PO (09:12)
[2021-06-18] MEDS: Sertraline 50 MG Tablet PO (09:16)
[2021-06-18 09:20] LABS: Bedside Glucose 128 mg/dL (70-110)
== END 2021-06-18 12:10 | disposition home or self-care (01) | DRG 807 ==
PROVIDERS: Admitting Provider Obstetrics & Gynecology; Visit Provider Obstetrics & Gynecology
DX: O24.424 Gestational diabetes mellitus in childbirth, insulin controlled (principal); Z37.0 Single live birth; O62.2 Other uterine inertia; O70.0 First degree perineal laceration during delivery; O16.4 Unspecified maternal hypertension, complicating childbirth; O99.214 Obesity complicating childbirth; E66.9 Obesity, unspecified; Z3A.38 38 weeks gestation of pregnancy; Z83.3 Family history of diabetes mellitus; Z82.79 Family history of other congenital malformations, deformations and chromosomal abnormalities
CPT/HCPCS: 59025; 59050; 82962; 85025; 86850; 86900; 86901; 87426; 99218; J7120; A4216; G0378; J2405

== ENCOUNTER 2021-08-07 14:54 | Outpatient (CLI) | payer BC, SELFPAY ==
[2021-08-18 14:29] LABS: HPV APTIMA, High Risk Negative (Negative)
== END 2021-08-07 23:59 | disposition short-term general hospital (02) ==
PROVIDERS: Referring Provider Obstetrics & Gynecology; Visit Provider Obstetrics & Gynecology
DX: Z01.419 Encounter for gynecological examination (general) (routine) without abnormal findings (principal)
CPT/HCPCS: 87624; 88175; G0145

== ENCOUNTER → 2024-09-25 | Outpatient (CLI) | payer BC, SELFPAY ==
[2024-09-25 09:45] LABS: Absolute Lymphocyte Count 2.79 X10^3/uL (0.83-4.51); Absolute Neutrophil Count 7.4 X10^3/uL (2.0-7.7); Basophil# 0.04 X10^3/uL; Basophil% 0.4 % (0-1); Eosinophil# 0.47 X10^3/uL; Eosinophils% 4.1 % (0-5); Hematocrit 42.6 % (37-47); Hemoglobin 14.5 g/dL (12.0-15.0); Lymphocyte # 2.79 X10^3/ul (0.83-4.51); Lymphocyte % 24.6 % (19-41); Mean Corpuscular Volume 88.2 fL (81-99); Mean Platelet Vol. 9.7 fl (6.2-12.0); Monocyte# 0.55 X10^3/uL; Monocyte% 4.9 % (0-10); NRBC Flagged by Analyzer 0 % (0-5); Neutrophil # 7.43 X10^3/uL (2.7-7.7); Neutrophil % 65.5 % (47-70); Platelet Count 307 K/mm3 (150-450); RBC Distribution Width CV 12.3 % (11.6-14.6); RBC Distribution Width SD 39.9 fl (35.1-43.9); Red Blood Count 4.83 M/mm3 (4.2-5.4); White Blood Count 11.3 K/mm3 (4.4-11.0)
[2024-09-25 10:22] LABS: Protein:Creat Ratio 228 mg/g CRE (0-200)
[2024-09-25 10:34] LABS: Hemoglobin A1c 9.9 % (3.8-5.6)
[2024-09-25 11:05] LABS: HIV - WCH Non-Reactive (Nonreactive); Hepatitis B Surface Antigen Non-Reactive (Nonreactive); Hepatitis C Antibody Non-Reactive (Nonreactive); Rubella IgG Reactive (Nonreactive); Syphilis Antibodies Non-reactive
[2024-09-26 06:54] LABS: ALB/GLOB Ratio 0.8 RATIO (0.9-2.4); AST(SGOT) 10 U/L (15-37); Alanine Aminotransfer ALT/SGPT 19 U/L (13-56); Albumin, Serum 3.3 g/dL (3.2-5.0); Alkaline Phosphatase 108 U/L (45-117); Anion Gap 8 (5-15); BUN 8 mg/dL (7-18); Calcium,Total 9.5 mg/dL (8.5-10.1); Chloride 104 mmol/L (98-107); Creatinine, Serum 0.66 mg/dL (0.55-1.02); EST Glomerular Filtration Rate 109 mL/min (>60); Est Glom Filt Rate - Afr Amer 132 mL/min (>60); Globulin 4.3 g/dL (2.2-4.2); Glucose 233 mg/dL (74-106); Protein, Total 7.6 g/dL (6.4-8.2); Sodium Level 136 mmol/L (136-145); Thyroid Stim Hormone (TSH) 0.942 uIU/mL (0.358-3.740)
[2024-09-27 04:07] LABS: Chlamydia By Nucleic Acid AMP Negative (Negative); Gonococcus By Nucleic Acid AMP Negative (Negative)
== END | disposition home or self-care (01) ==
LOC: BWCLAB 09:32
PROVIDERS: Referring Provider Obstetrics & Gynecology; Visit Provider Obstetrics & Gynecology
DX: O24.119 Pre-existing type 2 diabetes mellitus, in pregnancy, unspecified trimester (principal); Z3A.00 Weeks of gestation of pregnancy not specified; O10.019 Pre-existing essential hypertension complicating pregnancy, unspecified trimester; O99.210 Obesity complicating pregnancy, unspecified trimester; E66.9 Obesity, unspecified
CPT/HCPCS: 36415; 80053; 82570; 83036; 84156; 84443; 85025; 86703; 86762; 86780; 86803; 86850; 86900; 86901; 87077; 87086; 87088; 87340; 87491; 87591

== ENCOUNTER → 2024-11-20 | Outpatient (CLI) | payer BC, SELFPAY | END | disposition home or self-care (01) | PROVIDERS: Referring Provider Advanced Practice Midwife; Visit Provider Advanced Practice Midwife | DX: Z36.9 Encounter for antenatal screening, unspecified (principal) | CPT/HCPCS: 36415 ==

== ENCOUNTER → 2025-02-12 | Outpatient (CLI) | payer BC, SELFPAY ==
[2025-02-12 17:00] LABS: Hematocrit 33.8 % (37-47); Hemoglobin 11.2 g/dL (12.0-15.0); Immature Granulocytes Count 0.090 X10^3/uL (0.0-0.0); Mean Corp Hgb Conc 33.1 g/dL (32-36); Mean Corpuscular Volume 90.1 fL (81-99); Mean Platelet Vol. 9.8 fl (6.2-12.0); NRBC Flagged by Analyzer 0 % (0-5); Platelet Count 348 K/mm3 (150-450); RBC Distribution Width CV 13.4 % (11.6-14.6); RBC Distribution Width SD 43.9 fl (35.1-43.9); Red Blood Count 3.75 M/mm3 (4.2-5.4); White Blood Count 10.9 K/mm3 (4.4-11.0)
[2025-02-12 17:47] LABS: HIV Nonreactive (Nonreactive); Syphilis Antibodies Nonreactive (Nonreactive)
== END | disposition home or self-care (01) ==
PROVIDERS: Obstetrics & Gynecology; Referring Provider Nurse Practitioner Women's Health; Visit Provider Nurse Practitioner Women's Health
DX: O09.90 Supervision of high risk pregnancy, unspecified, unspecified trimester (principal); Z3A.00 Weeks of gestation of pregnancy not specified
CPT/HCPCS: 36415; 85025; 86703; 86780

== ENCOUNTER → 2025-03-06 | Outpatient (CLI) | payer BC, SELFPAY ==
--- NOTE | 2025-03-06 15:33 | US_ITS ---
PROCEDURE: OB LIMITED WITH BIOMETRICS 03/06/2025 REASON FOR EXAM: GROWTH TECHNIQUE: OB LIMITED WITH BIOMETRICS COMPARISON: None FINDINGS LMP: July 25, 2024. Number: 1 Position: Vertex Placental Position: Posterior and not low-lying Placental Abnormalities: No evidence of previa. DIMENSIONS: Biparietal Diameter: 7.95 cm: 31 weeks and 6 days: 38 percentile/ Head Circumference: 29.68 cm: 32 weeks and 6 days: 34 percentile/ Abdominal Circumference: 27.26 cm: 31 weeks and 2 days: 29 percentile/ Femur Length: 5.84 cm: 30 weeks and 4 days: 7 percentile/ ESTIMATED WEIGHT: 1732 g plus/-260 g ESTIMATED WEIGHT PERCENTILE (24+ weeks): 20 percentile ESTIMATED GESTATIONAL AGE: Baseline: 32 weeks and 0 days By Ultrasound: 31 weeks and 4 days ESTIMATED DATE OF DELIVERY: Baseline: May 01, 2025 By Ultrasound: May 04, 2024 BIOPHYSICAL ASSESSMENT: Amniotic Fluid Volume: 5.1 cm Amniotic Fluid Index: 17.2 cm (8-24 cm normal range) Cardiac Motion: 145 beats per minute (average) Trunk and Limb Motion: Present. MATERNAL ANATOMY: Adnexa: Neither maternal ovary is successfully identified. US/OB Limited With Biometrics IMPRESSION: Single live intrauterine gestation with a mean gestational age of 31 weeks and 4 days. Reading Location: [id number]
--- NOTE | 2025-03-06 15:33 | US_ITS ---
PROCEDURE: OB BIOPHYSICAL PROF W/O NST 03/06/2025 REASON FOR EXAM: WELL BEING TECHNIQUE: OB BIOPHYSICAL PROF W/O NST COMPARISON: None FINDINGS LMP: July 25 2024 Number: 1 Position: Vertex Placental Position: Posterior and not low-lying Placental Abnormalities: No evidence of previa. ESTIMATED GESTATIONAL AGE: Baseline: 32 weeks and 0 days ESTIMATED DATE OF DELIVERY: Baseline: May 01, 2025 BIOPHYSICAL ASSESSMENT: Amniotic Fluid Volume: 5.4 cm Amniotic Fluid Index: 16.5 cm (8-24 cm normal range) Cardiac Motion: 164 beats per minute (average) Trunk and Limb Motion: Present. MATERNAL ANATOMY: Adnexa: Neither maternal ovary is successfully identified. Biophysical profile: Breathing movements: 2 Gross body movements: 2 tone: 2 Amniotic fluid volume: 2 Total score: 8/8 US/OB Biophysical Prof W/O NST IMPRESSION: Normal biophysical profile. Reading Location: [id number]
== END | disposition home or self-care (01) ==
LOC: US 15:31
PROVIDERS: Referring Provider Obstetrics & Gynecology; Visit Provider Obstetrics & Gynecology
DX: Z34.93 Encounter for supervision of normal pregnancy, unspecified, third trimester (principal)
CPT/HCPCS: 76816; 76819

== ENCOUNTER → 2025-03-13 | Outpatient (CLI) | payer BC, SELFPAY ==
--- NOTE | 2025-03-13 15:37 | US_ITS ---
PROCEDURE: OB BIOPHYSICAL PROF W/O NST 03/13/2025 REASON FOR EXAM: WELL BEING TECHNIQUE: OB BIOPHYSICAL PROF W/O NST COMPARISON: March 06, 2025. FINDINGS Number: 1 Position: Transverse lie left Placental Position: Posterior and not low-lying Placental Abnormalities: No evidence of previa. ESTIMATED GESTATIONAL AGE: Baseline: 33 weeks and 0 days ESTIMATED DATE OF DELIVERY: Baseline: May 01, 2025. BIOPHYSICAL ASSESSMENT: Amniotic Fluid Volume: 5 cm. Amniotic Fluid Index: 15.7 cm (8-24 cm normal range) Cardiac Motion: 147 beats per minute (average) Trunk and Limb Motion: Present. MATERNAL ANATOMY: Adnexa: Neither maternal ovary is successfully identified. Biophysical profile: Breathing movements: 2 Gross body movements: 2 tone: 2 Amniotic fluid volume: 2 Total score: 8/8 US/OB Biophysical Prof W/O NST IMPRESSION: Normal biophysical profile. Reading Location: [facility]
== END | disposition home or self-care (01) ==
LOC: US 15:36
PROVIDERS: Referring Provider Obstetrics & Gynecology; Visit Provider Obstetrics & Gynecology
DX: O24.112 Pre-existing type 2 diabetes mellitus, in pregnancy, second trimester (principal); O16.3 Unspecified maternal hypertension, third trimester; Z3A.00 Weeks of gestation of pregnancy not specified
CPT/HCPCS: 76819

== ENCOUNTER 2025-03-16 14:15 | Outpatient (CLI) | payer BC, SELFPAY ==
--- NOTE | 2025-03-16 14:26 | US_ITS ---
PROCEDURE: OB BIOPHYSICAL PROF W/O NST 03/16/2025 REASON FOR EXAM: WELLBEING TECHNIQUE: OB BIOPHYSICAL PROF W/O NST FINDINGS Number: 1 Position: Breech Placental Position: Posterior Placental Abnormalities: None. Not low-lying. ESTIMATED WEIGHT: ESTIMATED WEIGHT PERCENTILE (24+ weeks): ESTIMATED GESTATIONAL AGE: Baseline: 33 weeks 3 days. By Ultrasound: 33 weeks, ESTIMATED DATE OF DELIVERY: Baseline: May 01, 2025 By Ultrasound: BIOPHYSICAL ASSESSMENT: Amniotic Fluid Volume: Within normal limits. Amniotic Fluid Index: 11.7 (8-24 cm normal range) Cardiac Motion: 137 (average) Trunk and Limb Motion: Present. MATERNAL ANATOMY: Adnexa: Neither maternal ovary is successfully identified. Cervical Length (if measured): US/OB Biophysical Prof W/O NST IMPRESSION: Total biophysical profile score: 8/8 Reading Location[facility]
[2025-03-16 14:27] VITALS: BMI 45.4
[2025-03-16 14:56] VITALS: BP 145/82; PULSE 105
[2025-03-16 14:57] VITALS: RESP 18; TEMP 36.3
[2025-03-16 14:58] VITALS: BP 111/67; PULSE 107
--- NOTE | 2025-03-17 10:58 | OB.TRI.HP_ITS ---
HPI - General HPI Narrative ROBIN ALMAGUER, is a 34 F who presents at 33.3 for variable decelerations in the office. presented to [facility] for prolonged monitoring and BPP. Maternal Data Information GIANFRANCO Calculator Estimated Delivery Date Method Current WG Current Estimate 05/01/25 LMP (Certain) 33w 4d Other Estimates 05/03/25 Ultrasound #1 33w 2d PFSH PFSH Medical History 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 Diabetes mellitus History of tetanus, diphtheria, and acellular pertussis booster vaccination (Tdap) Home Medications ?Medication ?Instructions ?Recorded ?Last Taken ?Type multivitamin no.47-iron fum 27 1 cap PO DAILY Check wi th primary 11/05/20 03/16/25 08:00 History mg-folate no.1 1 mg-dha 300 mg doctor 1 cap capsule (PNV-DHA) sertraline 50 mg tablet (Zoloft) 50 mg PO DAILY Check with primary 11/05/20 03/16/25 08:00 History doctor 50 mg metformin 500 mg tablet 500 mg PO BID Check with [facility] 09/08/24 03/16/25 08:00 History doctor 1,000 mg blood-glucose sensor (FreeStyle #6 ea 09/25/24 Unknown Rx Kelsea 3 Plus Sensor device) pen needle, diabetic 32 gauge x #150 ea 09/25/24 Unkno wn Rx 5/32 (BD Ultra-Fine Kiah Pen Needle) insulin glargine 100 unit/mL (3 96 unit subcut DAILY D M 03/16/25 03/15/25 22:00 History mL) subcutaneous pen (Lantus 96 units Solostar U-100 Insulin) insulin lispro 100 unit/mL 22 unit subcut .COMPLEX 03/16/25 12:00 History subcutaneous pen 22 units labetalol 200 mg tablet 200 mg PO BID htn 03/16/25 0 03/16/25 08:00 History 200 mg Allergy/AdvReac Type Severity Reaction Status Date / Time No Known Allergies Allergy Verified 03/16/25 14:51 Family History Mother Diabetes type 2 Hypertension Father Hyperlipemia Sister Diabetes type 2 Grandmother Diabetes type 2 Surgical History History of tonsillectomy and adenoidectomy Social History adopted: No household members: spouse, children and other details: Has custody of 2 neices housing: house number of children: 1 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 occupational exposures/hazards: No pets and animals: No history of recent travel: No sexually active: Yes Smoking Status: Never smoker second hand exposure: No alcohol intake: never substance use type: does not use diet: diabetic well-balanced diet: daily or most days caffeine: No eating out: rarely or never during the past year weight has: remained stable what type of physical activity do you participate in: walking frequency: 3-4 times per week duration: 15-30 minutes/day geoffrey/jehovah's witness: None seatbelt use: always do you feel safe at home: Yes additional social history: : Slade Madden History 2 Elective abortions Hx Para 1 Spontaneous abortions 0 Hx # Term Pregnancies Ectopic pregnancies Hx # Pregnancies Multiple births # of living children 1 Past Pregnancies Del. Date Name GA/Weeks Outcome Route Bth Weight Gen Labor Lgth Anesthesia Del Locatn Provider FOB 06/17/21 Ernie 39 live - full term 8lbs 3oz Male ep idural [facility] June Delivery Date: 06/17/21 Last Updated by: Xuan Belcher GDM; mild uterine atony; 1st degree laceration Visit Details Expected Delivery Route/Plan Labor Preferences- CB/BF classes: no labor support person: Slade labor intervention preferences: [] pain management options preferred: epidural cut cord/dad catch: cord : bottle PP control planned: discussed discussed possible routes of delivery and associated risks: [] special requests: [] Plans Covid status: [] Flu vaccine: [] Tdap vaccine: given Rhogam: NA LARC form signed: yes Problem list reviewed and updated with the most current plan of care details and appropriate orders placed. Relevant counseling for the gestational age provided. Continue routine care and follow up unless otherwise noted in visit notes/problem list details OB Flowsheet Initial Weight: Not Recorded Date -?-?-?-?-?-?-?-?-?-?-?-?- EGA Weight BP Urine Prot -?-?-?-?-?-?-?-?-?-?-?-?- Glucose FHR FuHt Pres Dilation -?-?-?-?-?-?-?-?-?-?-?-?- Effaced St Visit Note 09/25/24 -?-?-?-?-?-?-?-?-?-?-?-?- 8w 6d 260 lb 2 oz 146/93 -?-?-?-?-?-?-?-?-?-?-?-?- 186 -?-?-?-?-?-?-?-?-?-?-?-?- JV- CRL consiste nt with LMP. Declines NIPT. has DM and htn. starting labetalol now. will see Dr. Dunne this week. 10/23/24 -?-?-?-?-?-?-?-?-?-?-?-?- 12w 6d 266 lb 6 oz 141/92 Nega tive -?-?-?-?-?-?-?-?-?-?-?-?- Negative -?-?-?-?-?-?-?-?-?-?-?-?- JV- moveme nt seen on ultrasound but due to obesity and extreme movement of the fetus, unable to get the heart tones. Increasing labetalol to 200 tid. pt to continue seeing M and Dr. Dunne. 11/20/24 -?-?-?-?-?-?-?-?-?-?-?-?- 16w 6d 270 lb 129/81 Negative -?-?-?-?-?-?-?-?-?-?-?-?- Negative 150 -?-?-?-?-?-?-?-?-?-?-?-?- KW- no vb/crampi ng. + fm, US scheduled 12/05. doing well with BP meds. BS reviewed. accepts AFP screening today. 12/18/24 -?-?-?-?-?-?-?-?-?-?-?-?- 20w 6d 279 lb 4 oz 122/82 Trac e -?-?-?-?-?-?-?-?-?-?-?-?- Negative 156 -?-?-?--?-?-?-?-?-?-?-?-?- JV- low lying pl acenta and pelvic rest discussed. rpt scan coming up for anatomy structures not seen. glucose levels normal. still on labetalol and baby asa 01/17/25 -?-?-?-?-?-?-?-?-?-?-?-?- 25w 1d 277 lb 118/78 Negative -?-?-?-?-?-?-?-?-?-?-?-?- Negative 145 25 -?-?-?-?-?-?-?-?-?-?-?-?- SM- no vb lof go od fm no regular ctx BS controlled bps controlled discussed testing and 38 weeks delivery planning 02/12/25 -?-?-?-?-?-?-?-?-?-?-?-?- 28w 6d 287 lb 122/82 Negative -?-?-?-?-?-?-?-?-?-?-?-?- Negative 142 29 -?-?-?-?-?-?-?-?-?-?-?-?- MH-No VB, LOF. G ood FM. 28 wk labs. BS and HTN controlled. Larc, tdap. 02/26/25 -?-?-?-?-?-?-?-?-?-?-?-?- 30w 6d 286 lb 8 oz 133/79 Nega tive -?-?-?-?-?-?-?-?-?-?-?-?- Negative 145 31 -?-?-?-?-?-?-?-?-?-?-?-?- KW- no vb/lof/ct x. good fm. BPPs and NSTs scheduled. Has noticed increased fatigue over the last couple weeks but also is having elevated PP blood sugars- Fastings still under 95. Will message Dr Dunne for adjustments to insulin. 03/09/25 -?-?-?-?-?-?-?-?-?-?-?-?- 32w 3d 288 lb 2 oz 133/86 Nega tive -?-?-?-?-?-?-?-?-?-?-?-?- Negative 135 -?-?-?-?-?-?-?-?-?-?-?-?- KW- NST reactive . no vb/lof/ctx. good fm 03/16/25 -?-?-?-?-?-?-?-?-?-?-?-?- 33w 3d 290 lb 4 oz 120/79 Nega tive -?-?-?-?-?-?-?-?-?-?-?-?- Negative 135 -?-?-?-?-?-?-?-?-?-?-?-?- KW- NST only. Re active KW- NST only. Reactive but h ad 2 small variables. to WP for BPP NST FHR Rate Baby A Baseline: 140 Variability:: Moderate Accelerations:: 15 x 15 Decelerations:: None NST Reactive:: Yes FHR Category:: Category I Assessment & Plan (1) Variable deceleration: COMMENT: BPP 8/8, reactive NST in WP PLAN: Plan Patient presents for triage evaluation secondary to non-reactive nst in office. presented to for prolonged monitoring and BPP. BPP was 8/8. FHT: Moderate variability reactive no decelerations category I tracing [place]: no Contractions Assessment and plan: Reactive NST, reassuring maternal and status patient discharged to home to follow-up in office. See problem list details for additional plan information. Charges/Coding Procedures Urinary/Genital [id number]: 18469-50 non-stress test Interp
== END 2025-03-16 15:55 | disposition home or self-care (01) ==
LOC: WPOUT 14:24 → WP 14:25
PROVIDERS: Referring Provider Registered Nurse; Visit Provider Registered Nurse
DX: O36.8330 Maternal care for abnormalities of the fetal heart rate or rhythm, third trimester, not applicable or unspecified (principal); Z3A.33 33 weeks gestation of pregnancy
CPT/HCPCS: 59025; 76819; 99221; G0378

== ENCOUNTER → 2025-03-20 | Outpatient (CLI) | payer BC, SELFPAY ==
--- NOTE | 2025-03-20 15:33 | US_ITS ---
PROCEDURE: OB BIOPHYSICAL PROF W/O NST 03/20/2025 REASON FOR EXAM: WELL BEING TECHNIQUE: OB BIOPHYSICAL PROF W/O NST COMPARISON: March 16, 2025. FINDINGS Number: 1 Position: Transverse lie left Placental Position: Posterior and not low-lying Placental Abnormalities: No evidence of previa. ESTIMATED GESTATIONAL AGE: Baseline: 34 weeks and 0 days ESTIMATED DATE OF DELIVERY: Baseline: May 01, 2025 BIOPHYSICAL ASSESSMENT: Amniotic Fluid Volume: 6.6 cm Amniotic Fluid Index: 13.3 cm (8-24 cm normal range) Cardiac Motion: 140 beats per minute (average) Trunk and Limb Motion: Present. Biophysical profile: Breathing movements: 2 Gross body movements: 2 tone: 2 Amniotic fluid volume: 2 Total score: 8/8 US/OB Biophysical Prof W/O NST IMPRESSION: Normal biophysical profile with a score of 8/8 Reading Location: [id number]
== END | disposition home or self-care (01) ==
LOC: US 15:32
PROVIDERS: PCP Family Medicine; Referring Provider Obstetrics & Gynecology; Visit Provider Obstetrics & Gynecology
DX: O24.112 Pre-existing type 2 diabetes mellitus, in pregnancy, second trimester (principal); O16.2 Unspecified maternal hypertension, second trimester; Z3A.00 Weeks of gestation of pregnancy not specified
CPT/HCPCS: 76819

== ENCOUNTER → 2025-03-27 | Outpatient (CLI) | payer BC, SELFPAY ==
--- NOTE | 2025-03-27 15:33 | US_ITS ---
PROCEDURE: OB BIOPHYSICAL PROF W/O NST 03/27/2025 REASON FOR EXAM: WELL BEING TECHNIQUE: OB BIOPHYSICAL PROF W/O NST COMPARISON: Prior study dated March 20, 2025. FINDINGS Number: 1 Position: Breech Placental Position: Posterior and not low-lying. Placental Abnormalities: No evidence of previa. ESTIMATED GESTATIONAL AGE: Baseline: 35 weeks and 0 days ESTIMATED DATE OF DELIVERY: Baseline: May 01, 2025. BIOPHYSICAL ASSESSMENT: Amniotic Fluid Volume: 4.7 cm Amniotic Fluid Index: 13.2 cm (8-24 cm normal range) Cardiac Motion: 143 beats per minute (average) Trunk and Limb Motion: Present. MATERNAL ANATOMY: Adnexa: Neither maternal ovary is successfully identified. Biophysical profile: Breathing movements: 2 Gross body movements: 2 tone: 2 Amniotic fluid volume: 2 Total score: 8/8 US/OB Biophysical Prof W/O NST IMPRESSION: Normal biophysical profile score of 8/8 Reading Location: [facility]
--- OUTSIDE RECORDS SUMMARY | 2025-03-27 22:19 | XMS RPT_ITS | CCD ---
Author Organization [facility] Care Team Providers Care Marine Geologist Name Role Phone AGUILAR, FRANCHESCA Unavailable Unavailable AGUILAR, FRANCHESCA Unavailable Unavailable AGUILAR, FRANCHESCA Unavailable Unavailable AGUILAR, FRANCHESCA Unavailable Unavailable AGUILAR, FRANCHESCA Unavailable Unavailable AGUILAR, FRANCHESCA Unavailable Unavailable Selina Lindo Primary Care Provider Zita Randolph Primary Care Provid er Zita Randolph Primary Care Provid er Zita Randolph MD Primary Care Pro vider Zita Randolph MD Primary Care Pro vider Zita Randolph MD Primary Care Pro vider Zita Randolph MD Unavailable Zita Randolph MD Primary Care Pro vider Ziat Randolph MD Unavailable ZITA RANDOLPH Admitting Terra vailable ZITA RANDOLPH Primary Care Terra vailable Zita Randolph MD Primary Care Pro vider Luz Elena Parisi RD Unavailable Unavailable Unavailable Primary Care Provider UnavailYOSSI Ching Attending Unavailable Care Physician, No Primary Primary Care Provider Unavailable Malissa Meneses RN Attending Provider Unavailabl e Care Physician, No Primary Referring Provider Un available Vande Velde Dr. Magalys AGUILLON Attending Provider Steven Mclaughlin DO, Dr. Dowell Referring Provider Dr. Theodore Dunne MD Attending Provider Care Physician, No Primary Primary Care Provider Unavailable Malissa Meneses RN Attending Provider Unavailabl e Care Physician, No Primary Referring Provider Un available Dr. Magalys Stoner DO Attending Provider Dr. Magalys Stoner DO Referring Provider Dr. Theodore Dunne MD Attending Provider Tyrese CNM, Tere Attending Provider [phone] Tyrese SNYDER, Tere Referring Provider [phone]) Care Physician, No Primary Primary Care Provider Unavailable Leandro RAY, Dr. Wall Attending Provider Care Physician, No Primary Primary Care Provider Unavailable Care Physician, No Primary Referring Provider Un available Dr. Magalys Stoner DO Attending Provider King CORY, Dr. Jaimes Attending Provider Renetta DRY BOX TENDER-C, Rebecca Attending Provider [phone] Renetta DRY BOX TENDER-C, Rebecca Referring Provider [phone] NO PRIMARY CARE, Referring Unavailable NO PRIMARY CARE, Primary Care Unavailable CHRISTIANO HIGGINBOTHAM Attending Unavailable MAGALYS RAPHAEL Referring Unavailab NATASHA Lindsey Attending Unavailable NO PRIMARY CARE, Primary Care Unavailable MAGALYS RAPHAEL Referring Unavailab JIGENSH Boggs Attending Unavailable NO PRIMARY CARE, Primary Care Unavailable SAEID PETER Attending Unavailable ZITA RANDOLPH MOUNIR Primary Care Terra vailable MAGALYS RAPHAEL Referring Unavailab le Care Physician, No Primary Primary Care Provider Unavailable Care Physician, No Primary Referring Provider Un available Dr. Magalys Stoner DO Attending Provider ZITA RANDOLPH Attending Terra vailable ZITA RANDOLPH Primary Care Terra vailable AMADOR LUNA Attending Unavailable ZITA RANDOLPHUNMAGGIE Primary Care Terra vailaraine Reeves MD, Dr. Wall Referring Provider [phone] Moy CNM, Veronica Attending Provider Moy CNM, Veronica Referring Provider Moy CNM, Veronica Other Provider Care Physician, No Primary Primary Care Provider Unavailable Care Physician, No Primary Referring Provider Un available Tere Xiong CNM Attending Provider AGUSTÍN RAY, ZITA Primary Care Provider Care Physician, No Primary Primary Care Unava ilable Mae Reeves Attending Unavailable Mae Reeves Referring Unavailable Care Physician, No Primary Referring Unava ilable Care Physician, No Primary Primary Care Unava ilable Tere Xiong Attending Unavailable Care Physician, No Primary Referring Unava ilable Care Physician, No Primary Primary Care Unava ilable Tere Xiong Attending Unavailable Renetta DRY BOX TENDER, Rebecca Attending Unavailable Care Physician, No Primary Primary Care Unava ilable Care Physician, No Primary Referring Unava ilable ZITA RANDOLPH Primary Care Unavailable Mae Reeves Attending Unavailable Mae Reeves Referring Unavailable Renetta DRY BOX TENDER, Rebecca Attending Unavailable Care Physician, No Primary Primary Care Unava ilable Renetta DRY BOX TENDER, Rebecca Referring Unavailable VandMagalys Rob Referring Unavailabl e Vandmadhu VelMagalys silva Attending Unavailabl e Care Physician, No Primary Primary Care Unava ilable Veronica Winter Referring Unavailable Veronica Winter Attending Unavailable Care Physician, No Primary Primary Care Unava ilable Care Physician, No Primary Referring Unava ilable Magalys Stoner Attending Unavailabl e Care Physician, No Primary Primary Care Unava ilable ZITA RANDOLPH Primary Care Unavailable Mae Reeves Referring Unavailable Mae Reeves Attending Unavailable Care Physician, No Primary Primary Care Unava ilable Mae Reeves Attending Unavailable Mae Reeves Referring Unavailable Care Physician, No Primary Referring Unava ilable Care Physician, No Primary Primary Care Unava ilable Theodore Dunne Attending Unavailable Care Physician, No Primary Referring Unava ilable Magalys Stoner Attending Unavailabl e Care Physician, No Primary Primary Care Unava ilable Care Physician, No Primary Referring Unava ilable ZITA RANDOLPH Primary Care Unavailable Mae Reeves Attending Unavailable Care Physician, No Primary Primary Care Unava ilable Care Physician, No Primary Referring Unava ilable Tere Xiong Attending Unavailable Care Physician, No Primary Referring Unava ilable Tere Xiong Attending Unavailable Care Physician, No Primary Primary Care Unava ilable Care Physician, No Primary Referring Unava ilable Magalys Stoner [facility] Primary Primary Care Unava ilable Moy, Veronica Referring Unavailable Winter, Veronica Attending Unavailable Winter, Veronica Consulting Unavailable Care Physician, No Primary Primary Care Unava ilable Malissa Meneses Attending Unavailable Care Physician, No Primary Primary Care Unava ilable Care Physician, No Primary Referring Unava ilable Theodore Dunne Attending Unavailable Care Physician, No Primary Primary Care Unava ilable Care Physician, No Primary Primary Care Unava ilable Care Physician, No Primary Referring Unava ilable Mae Reeves Attending Unavailable Tyrese, Tere Referring Tere Woods Attending Unavailable Care Physician, No Primary Primary Care Unava ilable Medications Current Medications Medication Drug Class(es) Dates Sig (Normalized) Sig (Original) amoxicillin 875 mg oral tablet (1 source) Penicillin-class Antibacterial Start: 01-01-2025 End: 01-08-2025 take 1 tablet by mouth twice daily amoxicillin (AMOXIL) 875 MG tablet Indications: Acute otitis media, unspecified otitis media type Take 1 (one) tablet (875 mg total) by mouth 2 (two) times a day for 7 days . 14 tablet 01/01/2025 01/08/2025 Active blood-glucose meter Misc (20 sources) Start: 10-08-2020 blood-glucose meter Misc Indications: Type 2 diabetes mellitus without complication, unspecified whether fci insulin use (HCC) Once daily every morning before breakfast. . 1 each 10/08/2020 Active Start: 10-08-2020 blood-glucose meter Misc Indications: Type 2 diabetes mellitus without complication, unspecified whether fci insulin use (HCC) Once daily every morning before breakfast. . 1 each 0 10/08/2020 Active Blood-Glucose Sensor (Freest yle Vamsi 3 Plus Sensor) device (14 sources) Start: 09-25-2024 Blood-Glucose Sensor (Freestyle Vamsi 3 Plus Sensor) device Active 0 .Route 6 2 September 25, 2024 1:00am As directed Start: 09-25-2024 Blood-Glucose Sensor (Freestyle Vamsi 3 Plus Sensor) device Active 0 .Route September 25, 2024 1:00am As directed Start: 09-25-2024 Blood-Glucose Sensor (Freestyle Vamsi 3 Plus Sensor) device Active 0 .Route September 25, 2024 12:00am As directed flash glucose sensor (FreeStyle Vamsi 2 Sensor) Kit (1 source) Start: 09-10-2022 flash glucose sensor (FreeStyle Vamsi 2 Sensor) Kit Indications: Type 2 diabetes mellitus without complication, 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 (HCC) 1 kit by Miscellaneous route every 14 (fourteen) days Use as directed to apply new sensor . 2 kit 2 09/10/2022 Active 3 ml insulin glargine 100 unt/ml pen injector (20 sources) Insulin Analog Start: 03-16-2025 Insulin Glargi ne (Lantus Solostar U-100 Insulin) 100 unit/mL (3 mL) insulin pen Active 96 U SC DAILY March 16, 2025 12:00am DM Start: 01-01-2025 End: 03-16-2025 Insulin Glargine (Lantus Roma ostar U-100 Insulin) 100 unit/mL (3 mL) insulin pen Discontinued 100 U SC DAILY 30 January 01, 2025 11:51am March 16, 2025 2:55pm Start: 12-21-2024 Lantus Solosta r U-100 Insulin 100 unit/mL (3 mL) InPn INJECT 90 UNITS SUBCUTANEOUSLY ONCE DAILY 12/21/2024 Active Start: 11-13-2024 End: 01-01-2025 Insulin Glargine (Lantus Roma ostar U-100 Insulin) 100 unit/mL (3 mL) insulin pen Discontinued 90 U SC DAILY 81 November 13, 2024 12:00am January 01, 2025 11:51am Start: 11-13-2024 End: 11-13-2024 Insulin Glargine U-300 Conc (Toujeo Max U-300 Solostar) 300 unit/mL (3 mL) insulin pen Discontinued 90 U SC daily 9 6 November 13, 2024 12:00am November 13, 2024 5:14pm Start: 10-23-2024 End: 11-13-2024 Insulin Glargine (Lantus Roma ostar U-100 Insulin) 100 unit/mL (3 mL) insulin pen Discontinued 60 U SC daily 36 1 October 23, 2024 3:04pm November 13, 2024 11:28am Type 2 diabetes mellitus affecting in first trimester, antepartum Pre-existing type 2 diabetes mellitus, in , first trimester Start: 10-23-2024 End: 11-13-2024 Insulin Glargine (Lantus Roma ostar U-100 Insulin) 100 unit/mL (3 mL) insulin pen Discontinued 60 U SC daily 36 October 23, 2024 3:04pm November 13, 2024 11:28am Start: 09-28-2024 End: 10-23-2024 Insulin Glargine (Lantus Roma ostar U-100 Insulin) 100 unit/mL (3 mL) insulin pen Discontinued 40 U SC daily 36 September 28, 2024 1:00am October 23, 2024 3:04pm Type 2 diabetes mellitus affecting in first trimester, antepartum Pre-existing type 2 diabetes mellitus, in , first trimester Start: 09-28-2024 End: 10-23-2024 Insulin Glargine (Lantus Roma ostar U-100 Insulin) 100 unit/mL (3 mL) insulin pen Discontinued 40 U SC daily 36 September 28, 2024 1:00am October 23, 2024 3:04pm 3 ml insulin lispro 100 unt/ml pen injector (20 sources) Insulin Analog Start: 03-16-2025 inject 22 [IU] by subcutaneous injection at breakfast Insulin Lispro 100 unit/mL insulin pen Active 22 U SC .COMPLEX March 16, 2025 12:00am 22 units subcutaneously breakfast and lunch; 26 unit with dinner Start: 12-22-2024 insulin lispro 100 unit/mL InPn 22 (twenty two) Units . 12/22/2024 Active Start: 12-22-2024 inject 30 [IU] by chun bcutaneous injection three times daily insulin lispro 100 unit/mL InPn INJECT 30 UNITS UNDER THE SKIN THREE TIMES DAILY 12/22/2024 Active Start: 11-20-2024 End: 03-16-2025 Insulin Lispro 100 unit/mL insulin pen Discontinued 30 U SC THREE TIMES A DAY 30 6 November 20, 2024 4:41pm March 16, 2025 2:55pm Start: 10-23-2024 End: 11-20-2024 Insulin Lispro 100 unit/mL insulin pen Discontinued 13 U SC THREE TIMES A DAY 15 October 23, 2024 2:59pm November 20, 2024 4:42pm Start: 09-25-2024 End: 10-23-2024 Insulin Lispro 100 unit/mL insulin pen Discontinued 15 U SC THREE TIMES A DAY 15 September 25, 2024 1:00am October 23, 2024 3:00pm Start: 06-15-2021 End: 08-07-2021 Insulin Lispro (Humalog Kwik pen Insulin) 100 unit/mL insulin pen Discontinued 33 U SC THREE TIMES A DAY June 15, 2021 8:35pm August 07, 2021 3:28pm Check with primary doctor Start: 05-15-2021 End: 06-15-2021 Insulin Lispro (Humalog Kwik pen Insulin) 100 unit/mL insulin pen Discontinued 30 U SC THREE TIMES A DAY 27 1 May 15, 2021 10:38am June 15, 2021 8:35pm Start: 05-15-2021 End: 05-15-2021 Insulin Lispro (Humalog Kwik pen Insulin) 100 unit/mL insulin pen Discontinued 20 U SC THREE TIMES A DAY 18 2 May 15, 2021 7:47am May 15, 2021 10:39am Start: 11-14-2020 End: 05-15-2021 Insulin Lispro (Humalog Kwik pen Insulin) 100 unit/mL insulin pen Discontinued 15 U SC THREE TIMES A DAY 15 4 November 14, 2020 12:00am May 15, 2021 7:47am labetalol hydrochloride 200 mg oral tablet (20 sources) beta-Adrenergic Medardo Start: 03-16-2025 take 1 tablet by mouth twice daily Labetalol 200 mg tablet Active 200 mg PO TWICE A DAY March 16, 2025 12:00am htn Start: 12-01-2024 take 1 tablet by robinson th twice daily labetaloL (NORMODYNE) 200 MG tablet Take 1 (one) tablet (200 mg total) by mouth 2 (two) times a day . 12/01/2024 Active Start: 10-23-2024 End: 03-16-2025 take 1 tablet by mouth three times daily Labetalol 200 mg tablet Discontinued 200 mg PO THREE TIMES A DAY 90 30 4 October 23, 2024 2:47pm March 16, 2025 2:55pm Start: 09-25-2024 End: 10-23-2024 take 1 tablet by mouth twice daily Labetalol 200 mg tablet Discontinued 200 mg PO TWICE A DAY 60 30 4 September 25, 2024 1:00am October 23, 2024 3:00pm medroxyPROGESTERone acetate 10 mg oral tablet (1 source) Progestin Start: 06-06-2018 take 1 tablet by mouth once daily medroxyPROGESTERone (PROVERA) 10 MG Tab Indications: Irregular menses Take 1 tablet by mouth daily. 10 tablet 3 06/06/2018 Active metFORMIN hydrochloride 500 mg oral tablet (20 sources) Biguanide Start: 09-08-2024 take 1 tablet by mouth twice daily in the morning Metformin 500 mg tablet Active 500 mg PO TWICE A DAY September 08, 2024 10:49am Check with primary doctor 2 in AM; 2 at bedtime Start: 12-22-2022 End: 12-22-2023 take 1 tablet by mouth every twenty-four hours metFORMIN ER (GLUCOPHAGE XR) 500 mg 24 hr tablet Take 1,000 mg by mouth. 0 12/22/2022 12/22/2023 Active Start: 12-23-2021 End: 02-18-2025 take 2 tablets by mouth twice daily at breakfast metFORMIN (GLUCOPHAGE-XR) 500 MG 24 hr tablet Indications: Type 2 diabetes mellitus without complication, unspecified whether fci insulin use (HCC) Take 2 (two) tablets (1,000 mg total) by mouth 2 (two) times a day with breakfast and lunch . 360 tablet 11/20/2024 Active Start: 10-08-2020 End: 09-08-2024 take 1 tablet by mouth once daily Metformin 500 mg tab let Discontinued 500 mg PO DAILY November 05, 2020 12:00am September 08, 2024 10:49am Check with primary doctor Start: 06-10-2018 take 1 tablet by robinson th three times daily metformin 500 MG Tab tablet Indications: Insulin resistance Take 1 tablet by mouth 3 times daily. 90 tablet 2 06/10/2018 Active Comment on above: Take 1,000 mg by robinson . Multivit 49-Ubuh-Joagfr 1-Dha (Pnv-Dha) 27 mg iron-1 mg -300 mg capsule (14 sources) Start: 11-05-2020 Multivit 97-Gcie-Rekxbl 1-Dha (Pnv-Dha) 27 mg iron-1 mg -300 mg capsule Active 1 NMA PO DAILY November 05, 2020 12:00am Check with primary doctor Start: 11-05-2020 Multivit 47-Ir on-Folate 1-Dha (Pnv-Dha) 27 mg iron-1 mg -300 mg capsule Active 1 NMA PO DAILY November 05, 2020 12:00am Start: 11-05-2020 Multivit 47-Ir on-Folate 1-Dha (Pnv-Dha) 27 mg iron-1 mg -300 mg capsule Active 1 NMA PO DAILY November 04, 2020 11:00pm vitamin with Ca-Iron-FA 27-1 mg Tab (3 sources) take 1 tablet by mouth once daily vitamin with Ca-Iron-FA 27-1 mg Tab Take 1 (one) tablet by mouth daily . Active sertraline 50 mg oral tablet (20 sources) Serotonin Reuptake Inhibitor Start: 10-07-2020 End: 05-31-2025 take 1 tablet by mouth once daily Sertraline (Zoloft) 50 mg tablet Active 50 mg PO DAILY November 05, 2020 12:00am Check with primary doctor Comment on above: Take 50 mg by mouth. Completed/Discontinued Medications Medication Drug Class(es) Dates Sig (Normalized) Sig (Original) Blood Pressure Test Kit-Large kit (14 sources) Start: 12-09-2020 End: 08-07-2021 Blood Pressure Test Kit-Large kit Discontinued 0 .ROUTE .MEDSUPPLY 1 0 December 09, 2020 12:00am August 07, 2021 3:28pm As directed Start: 12-09-2020 End: 08-07-2021 Blood Pressure Test Kit-Larg e kit Discontinued 0 .ROUTE .MEDSUPPLY 1 December 09, 2020 12:00am August 07, 2021 3:28pm As directed Start: 12-09-2020 End: 08-07-2021 Blood Pressure Test Kit-Larg e kit Discontinued 0 .ROUTE .MEDSUPPLY December 08, 2020 11:00pm August 07, 2021 2:28pm As directed Blood-Glucose Meter misc (14 sources) Start: 11-14-2020 End: 08-07-2021 Blood-Glucose Meter misc Dis continued 0 NMA .ROUTE .MEDSUPPLY November 14, 2020 12:00am August 07, 2021 3:28pm As directed Start: 11-14-2020 End: 08-07-2021 Blood-Glucose Meter misc Dis continued 0 NMA .ROUTE .MEDSUPPLY November 13, 2020 11:00pm August 07, 2021 2:28pm As directed Desogestrel / Ethinyl Estradiol (20 sources) Progestin, Estrogen Start: 09-27-2023 End: 09-08-2024 take 0.15 tablet by mouth once daily Desogestrel-Ethinyl Estradiol (Apri) 0.15-0.03 mg tablet Discontinued 1 {tbl} PO DAILY 84 4 September 27, 2023 11:25am September 08, 2024 10:47am Start: 09-27-2023 End: 09-08-2024 take 0.15 tablet by mouth once daily Desogestrel-Ethinyl Estradiol (Apri) 0.15-0.03 mg tablet Discontinued 1 {tbl} PO DAILY 84 September 27, 2023 11:25am September 08, 2024 10:47am Start: 09-27-2023 End: 09-08-2024 take 0.15 tablet by mouth once daily Desogestrel-Ethinyl Estradiol (Apri) 0.15-0.03 mg tablet Discontinued 1 {tbl} PO DAILY 84 September 27, 2023 10:25am September 08, 2024 9:47am Start: 09-07-2023 End: 09-27-2023 take 0.15 tablet by mouth once daily Desogestrel-Ethinyl Estradiol (Apri) 0.15-0.03 mg tablet Discontinued 1 {tbl} PO DAILY 84 0 September 07, 2023 1:03pm September 27, 2023 11:26am Start: 09-07-2023 End: 09-27-2023 take 0.15 tablet by mouth once daily Desogestrel-Ethinyl Estradiol (Apri) 0.15-0.03 mg tablet Discontinued 1 {tbl} PO DAILY 84 September 07, 2023 1:03pm September 27, 2023 11:26am Start: 09-07-2023 End: 09-27-2023 take 0.15 tablet by mouth once daily Desogestrel-Ethinyl Estradiol (Apri) 0.15-0.03 mg tablet Discontinued 1 {tbl} PO DAILY 84 September 07, 2023 12:03pm September 27, 2023 10:26am Start: 09-24-2022 End: 09-07-2023 take 0.15 tablet by mouth once daily Desogestrel-Ethinyl Estradiol (Apri) 0.15-0.03 mg tablet Discontinued 1 {tbl} PO DAILY 84 September 24, 2022 3:38pm September 07, 2023 1:03pm Start: 09-24-2022 End: 09-07-2023 take 0.15 tablet by mouth once daily Desogestrel-Ethinyl Estradiol (Apri) 0.15-0.03 mg tablet Discontinued 1 {tbl} PO DAILY 84 September 24, 2022 3:38pm September 07, 2023 1:03pm Start: 09-24-2022 End: 09-07-2023 take 0.15 tablet by mouth once daily Desogestrel-Ethinyl Estradiol (Apri) 0.15-0.03 mg tablet Discontinued 1 {tbl} PO DAILY 84 September 24, 2022 2:38pm September 07, 2023 12:03pm Start: 08-06-2022 End: 09-24-2022 Desogestrel-Ethinyl Estradio l (Apri) 0.15-0.03 mg tablet Discontinued 0 .ROUTE .COMPLEX 27 10August 06, 2022 6:12pm September 24, 2022 3:38pm TAKE 1 TABLET BY MOUTH EVERY DAY Start: 08-06-2022 End: 09-24-2022 Desogestrel-Ethinyl Estradio l (Apri) 0.15-0.03 mg tablet Discontinued 0 .ROUTE .COMPLEX August 06, 2022 6:12pm September 24, 2022 3:38pm TAKE 1 TABLET BY MOUTH EVERY DAY Start: 08-06-2022 End: 09-24-2022 Desogestrel-Ethinyl Estradio l (Apri) 0.15-0.03 mg tablet Discontinued 0 .ROUTE .COMPLEX August 06, 2022 5:12pm September 24, 2022 2:38pm TAKE 1 TABLET BY MOUTH EVERY DAY Start: 08-28-2021 End: 08-06-2022 Desogestrel-Ethinyl Estradio l (Apri) 0.15-0.03 mg tablet Discontinued 0 .ROUTE .COMPLEX 28 August 28, 2021 9:26am August 06, 2022 6:12pm TAKE 1 TABLET BY MOUTH EVERY DAY Start: 08-28-2021 End: 08-06-2022 Desogestrel-Ethinyl Estradio l (Apri) 0.15-0.03 mg tablet Discontinued 0 .ROUTE .COMPLEX August 28, 2021 9:26am August 06, 2022 6:12pm TAKE 1 TABLET BY MOUTH EVERY DAY Start: 08-28-2021 End: 08-06-2022 Desogestrel-Ethinyl Estradio l (Apri) 0.15-0.03 mg tablet Discontinued 0 .ROUTE .COMPLEX August 28, 2021 8:26am August 06, 2022 5:12pm TAKE 1 TABLET BY MOUTH EVERY DAY Start: 08-07-2021 End: 08-28-2021 take 0.15 tablet by mouth once daily Desogestrel-Ethinyl Estradiol (Apri) 0.15-0.03 mg tablet Discontinued 1 {tbl} PO daily 29 07August 07, 2021 1:00am August 28, 2021 9:26am Start: 08-07-2021 End: 08-28-2021 take 0.15 tablet by mouth once daily Desogestrel-Ethinyl Estradiol (Apri) 0.15-0.03 mg tablet Discontinued 1 {tbl} PO daily August 07, 2021 1:00am August 28, 2021 9:26am Start: 08-07-2021 End: 08-28-2021 take 0.15 tablet by mouth once daily Desogestrel-Ethinyl Estradiol (Apri) 0.15-0.03 mg tablet Discontinued 1 {tbl} PO daily August 07, 2021 12:00am August 28, 2021 8:26am End: 03-02-2025 take 1 tablet by mouth once daily, then take 0.15 tablet by mouth once desogestreL-ethinyl estradioL (APRI) 0.15-0.03 mg per tablet Take 1 (one) tablet by mouth daily . 03/02/2025 Discontinued take 1 tablet by robinson th once daily, then take 0.15 tablet by mouth once desogestreL-ethinyl estradioL (APRI) 0.15-0.03 mg per tablet Take 1 (one) tablet by mouth daily . Active take 1 tablet by robinson th once daily, then take 0.15 tablet by mouth once desogestreL-ethinyl estradioL (APRI) 0.15-0.03 mg per tablet Take 1 (one) tablet by mouth daily . 0 Active take 1 tablet by robinson th once daily, then take 0.15 tablet by mouth once desogestreL-ethinyl estradioL (APRI) 0.15-0.03 mg per tablet Take 1 tablet by mouth daily . 0 Active drospirenone / Ethinyl Estradiol (3 sources) Progestin, Estrogen Start: 05-05-2016 take 1 tablet by mouth once daily Drospirenone-Ethinyl Estradiol (LORYNA, 28,) 3-0.02 mg per tablet Take 1 tablet by mouth once daily. 28 tablet 6 05/05/2016 Active Comment on above: Take 1 tablet by robinson th once daily. 0.5 ml dulaglutide 1.5 mg/ml auto-injector (12 sources) GLP-1 Receptor Agonist Start: 05-21-2022 End: 09-10-2022 dulaglutide 0.75 mg/0.5 mL Pen Indications: Type 2 diabetes mellitus without complication, unspecified whether fci insulin use (HCC) Inject 0.5 mL (0.75 mg total) under the skin every 7 days . 2 mL 0 05/21/2022 09/10/2022 Discontinued Start: 12-24-2021 End: 03-22-2022 dulaglutide 0.75 mg/0.5 mL P en Indications: Type 2 diabetes mellitus without complication, unspecified whether fci insulin use (HCC) Inject 0.5 mL (0.75 mg total) under the skin every 7 days . 2 mL 0 01/20/2022 02/20/2022 Discontinued (Reorder) 3 ml insulin degludec 200 unt/ml pen injector (20 sources) Insulin Analog Start: 09-25-2024 End: 10-23-2024 Insulin Degludec (Tresiba Flextouch U-200) 200 unit/mL (3 mL) insulin pen Discontinued 40 U SC daily 12 September 25, 2024 1:00am October 23, 2024 2:58pm Start: 12-22-2022 End: 03-02-2025 insulin degludec (Tresiba Fl exTouch U-100) 100 unit/mL (3 mL) In Indications: Type 2 diabetes mellitus without complication, unspecified whether fci insulin use (HCC) Inject 25 (twenty five) Units under the skin at bedtime . 22.5 mL 12/22/2022 03/02/2025 Discontinued Start: 09-10-2022 End: 12-09-2022 insulin degludec (Tresiba Fl exTouch U-100) 100 unit/mL (3 mL) InPn Indications: Type 2 diabetes mellitus without complication, 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 (HCC) Inject 20 (twenty) Units under the skin at bedtime . 18 mL 0 09/10/2022 12/09/2022 Active Start: 04-17-2021 End: 05-15-2021 Insulin Degludec (Tresiba Fl extouch U-200) 200 unit/mL (3 mL) insulin pen Discontinued 80 U SC DAILY 12 April 17, 2021 12:00am May 15, 2021 10:39am Start: 11-14-2020 End: 04-17-2021 Insulin Degludec (Tresiba Fl extouch U-100) 100 unit/mL (3 mL) insulin pen Discontinued 50 U SC DAILY 15 November 14, 2020 5:02pm April 17, 2021 7:45am Start: 11-05-2020 End: 11-14-2020 Insulin Degludec (Tresiba Fl extouch U-100) 100 unit/mL (3 mL) insulin pen Discontinued 12 U SC DAILY November 05, 2020 12:00am November 14, 2020 5:02pm Start: 10-08-2020 End: 12-23-2021 insulin degludec 100 unit/mL (3 mL) InPn Indications: Type 2 diabetes mellitus without complication, 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 (HCC) Inject 12 (twelve) Units under the skin every evening . 6 mL 2 10/25/2020 12/23/2021 Discontinued 3 ml insulin isophane, human 100 unt/ml pen injector (20 sources) Start: 06-15-2021 End: 08-07-2021 Insulin Nph Isoph U-100 Stella n (Humulin N Nph Insulin Kwikpen) 100 unit/mL (3 mL) insulin pen Discontinued 75 U SC AT BEDTIME June 15, 2021 8:35pm August 07, 2021 3:28pm Check with primary doctor Start: 05-15-2021 End: 06-15-2021 Insulin Nph Isoph U-100 Stella n (Humulin N Nph Insulin Kwikpen) 100 unit/mL (3 mL) insulin pen Discontinued 70 U SC AT BEDTIME 22 08May 15, 2021 12:00am June 15, 2021 8:35pm 3 ml liraglutide 6 mg/ml pen injector (8 sources) GLP-1 Receptor Agonist Start: 12-24-2022 End: 03-02-2025 liraglutide (Victoza 2-Miguel) 0.6 mg/0.1 mL (18 mg/3 mL) Pen Inject 1.2 mg under the skin daily . 6 mL 2 12/24/2022 03/02/2025 Discontinued losartan potassium 50 mg oral tablet (20 sources) Angiotensin 2 Receptor Medardo Start: 12-22-2022 End: 03-02-2025 take 1 tablet by mouth once daily Losartan 50 mg tablet Discontinued 50 mg PO DAILY September 27, 2023 1:00am September 08, 2024 10:49am Comment on above: Take 1 tablet by robinson th every afternoon. 0.25 mg, 0.5 mg dose 1.5 ml semaglutide 1.34 mg/ml pen injector (4 sources) Start: 06-09-2023 End: 06-11-2023 semaglutide (OZEMPIC) 0.25 mg or 0.5 mg(2 mg/1.5 mL) pen Inject 0.25 mg subcutaneously one time a week. 12 Each 1 06/09/2023 06/11/2023 Discontinued Start: 12-22-2022 End: 03-22-2023 semaglutide (Ozempic) 0.25 m g or 0.5 mg(2 mg/1.5 mL) Pen Indications: Type 2 diabetes mellitus without complication, 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 (HCC) Inject 0.5 (one-half) mg under the skin every 7 days . 1.5 mL 2 12/22/2022 03/22/2023 Active Start: 12-23-2021 End: 01-22-2022 semaglutide (Ozempic) 0.25 m g or 0.5 mg(2 mg/1.5 mL) Pen Indications: Type 2 diabetes mellitus without complication, 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 (HCC) Inject 0.5 (one-half) mg under the skin every 7 days . 1.5 mL 0 12/23/2021 01/22/2022 Active Comment on above: Inject 0.25 mg subcu taneously one time a week. semaglutide (OZEMPIC) 0.25 mg or 0.5 mg (2 mg/3 mL) pen (2 sources) Start: 06-11-2023 semaglutide (OZEMPIC) 0.25 mg or 0.5 mg (2 mg/3 mL) pen Inject 0.25 mg subcutaneously one time a week. 12 Each 1 06/11/2023 Active Comment on above: Inject 0.25 mg subcu taneously one time a week. tirzepatide (MOUNJARO) 2.5 mg/0.5 mL Pen (8 sources) Start: 01-10-2024 End: 03-02-2025 tirzepatide (MOUNJARO) 2.5 mg/0.5 mL Pen Indications: Type 2 diabetes mellitus without complication, unspecified whether fci insulin use (HCC) Inject 0.5 mL under the skin every 7 days . 2 mL 1 01/10/2024 03/02/2025 Discontinued Start: 01-10-2024 tirzepatide (M OUNJARO) 2.5 mg/0.5 mL Pen Indications: Type 2 diabetes mellitus without complication, unspecified whether fci insulin use (HCC) Inject 0.5 mL under the skin every 7 days . 2 mL 1 01/10/2024 Active Problems Active Problems Problem Classification Problem Date Documented Date Episodic/Chronic Anxiety disorders (20 sources) Mixed anxiety and depressive disorder; Translations: [Anxiety disorder, unspecified] Onset: 10-07-2020 10-07-2020 Chronic Comment on above: Zoloft , encouraged counseling. Zoloft , encouraged counseling. Stable Bacterial infection; unspecified site (1 source) Streptococcus, group B, as the cause of diseases classified elsewhere; Translations: [Streptococcus, group B, as the cause of diseases classified elsewhere] Onset: 03-16-2025 Episodic Diabetes mellitus with complications (18 sources) Hyperglycemia due to diabetes mellitus; Translations: [Type 2 diabetes mellitus with hyperglycemia] Onset: 06-09-2023 06-09-2023 Chronic Comment on above: see Dr Dunne. insulin . 2x weekly NST, growth us q 4 weeks IOL by 39 Diabetes mellitus without complication (20 sources) Type 2 diabetes mellitus without complication; Translations: [Diabetes mellitus] Onset: 08-02-2020 10-24-2020 Chronic Comment on above: Type 2 - On Metformi n Type 2 - On Metformi n & insulin Diabetes or abnormal glucose tolerance complicating ; childbirth; or the puerperium (20 sources) and type 2 diabetes mellitus; Translations: [Pre-existing type 2 diabetes mellitus, in , first trimester] Onset: 11-20-2024 09-28-2024 Chronic Comment on above: nsts starting 32 wee ks, deliver 37-38 weeks due to combination of chtn on labetalol class B diabetes. class B diabetes. gr owth US q 4 weeks. twice weekly testing 32 on with weekly bpp and weekly NST and deliver at 38 class B diabetes. gr owth US q 4 weeks. twice weekly testing 32 on with twice weekly bpp and deliver at 38 Essential hypertension (20 sources) Hypertensive disorder; Translations: [Essential (primary) hypertension] Onset: 05-21-2022 05-21-2022 Chronic Comment on above: Was on Losartan - st opped with +HPTLabetalol 200 bid Labetalol 200 bid Labetalol 200 bid if controlled plan 38 weeks delivery, plan weekly BPP and weekly nst from 32 on Hemorrhage during ; abruptio placenta; placenta previa (20 sources) Low lying placenta; Translations: [Low lying placenta NOS or without hemorrhage, second trimester] Onset: 02-12-2025 09-08-2024 Episodic Comment on above: FU @28 wks, resolved and noted on 04/03 growth US follow up scan at 32 weeks pelvic rest and foll ow up scan at 32 weeks pelvic rest and foll ow up scan at 28 weeks pelvic rest and foll ow up scan at 28 weeks: 02/13: Immunizations and screening for infectious disease (1 source) Encounter for immunization; Translations: [Encounter for immunization] Onset: 02-12-2025 Episodic Menstrual disorders (3 sources) Dysmenorrhea; Translations: [Dysmenorrhea, unspecified] Onset: 12-04-2011 12-04-2011 Chronic Other complications of (20 sources) Maternal obesity complicating , childbirth and the puerperium, antepartum; Translations: [Obesity complicating , unspecified trimester] 09-08-2024 Chronic Comment on above: BMI 39.2; HgBA1C ord ered w/NOB unable to get heart views. nl echo. BMI 39.2; HgBA1C ordered w/NOB Other complications of (1 source) Obesity complicating , second trimester; Translations: [Obesity complicating , second trimester] Onset: 03-23-2025 Chronic Other complications of (1 source) Obesity complicating , unspecified trimester; Translations: [Obesity complicating , unspecified trimester] Onset: 11-20-2024 Chronic Other complications of (20 sources) High risk ; Translations: [Supervision of high risk , unspecified, unspecified trimester] 09-08-2024 Episodic Comment on above: , GIANFRANCO 05/01/25, PC: Ernie (Has custody of 14yr old twin nieces, Anaconda & Believe), : Slade PRR GIANFRANCO: Boy! Ernie Spouse: Slade (has custody of 11yr old twin nieces An[place]onda and Believe) PRR , GIANFRANCO , girl Cedeño PC: Ernie (Has custody of 14yr old twin nieces, Anaconda & Believe), : Slade Other complications of (20 sources) Urinary tract infection in ; Translations: [Unspecified infection of urinary tract in , unspecified trimester] 09-28-2024 Episodic Other complications of (1 source) Maternal care for abnormalities of the heart rate or rhythm, third trimester, not applicable or unspecified; Translations: [Maternal care for abnormalities of the heart rate or rhythm, third trimester, not applicable or unspecified] Onset: 03-22-2025 Episodic Other complications of (1 source) Unspecified infection of urinary tract in , second trimester; Translations: [Unspecified infection of urinary tract in , second trimester] Onset: 03-16-2025 Episodic Other complications of (1 source) Supervision of high risk , unspecified, second trimester; Translations: [Supervision of high risk , unspecified, second trimester] Onset: 03-16-2025 Episodic Other complications of (1 source) Supervision of high risk , unspecified, unspecified trimester; Translations: [Supervision of high risk , unspecified, unspecified trimester] Onset: 02-16-2025 Episodic Other endocrine disorders (3 sources) Increased androgen level; Translations: [Androgen excess] Onset: 12-04-2011 12-04-2011 Chronic Other nutritional; endocrine; and metabolic disorders (16 sources) Morbid obesity; Translations: [Morbid (severe) obesity due to excess calories] Onset: 06-06-2018 06-06-2018 Chronic Other nutritional; endocrine; and metabolic disorders (20 sources) Body mass index 40+ - severely obese; Translations: [Morbid (severe) obesity due to excess calories] Onset: 06-06-2018 10-07-2020 Chronic Other nutritional; endocrine; and metabolic disorders (4 sources) Severe obesity; Translations: [Morbid (severe) obesity due to excess calories] Onset: 06-09-2023 06-09-2023 Chronic Other nutritional; endocrine; and metabolic disorders (14 sources) Obesity; Translations: [Obesity, unspecified] 09-08-2024 Chronic Comment on above: weekly nsts, growth usq 4, 06/02 BELLA nl Other nutritional; endocrine; and metabolic disorders (2 sources) Morbid (severe) obesity due to excess calories; Translations: [Morbid (severe) obesity due to excess calories] Onset: 10-07-2020 Chronic Other and delivery including normal (20 sources) ; Translations: [Encounter for supervision of normal , unspecified, unspecified trimester] Onset: 09-25-2024 09-08-2024 Episodic Comment on above: Discussed genetic/ca rrier testing - undecided declines genetic, ca rrier and NTD, anatomy nl. GBS neg Discussed genetic/ca rrier testing - undecided, neg AFP, nl anatomy Otitis media and related conditions (6 sources) Acute otitis media; Translations: [Otitis media, unspecified, unspecified ear] Onset: 01-01-2025 01-01-2025 Episodic Residual codes; unclassified (20 sources) FH: Chromosomal anomaly; Translations: [Family history of other congenital malformations, deformations and chromosomal abnormalities] 09-08-2024 Episodic Comment on above: Slade's brother has Trisomy 21. Declines genetic testing. Residual codes; unclassified (14 sources) History of vaccination; Translations: [Personal history of other drug therapy] 05-01-2021 Episodic Comment on above: 03/31/21 Residual codes; unclassified (1 source) Family history of other congenital malformations, deformations and chromosomal abnormalities; Translations: [Family history of other congenital malformations, deformations and chromosomal abnormalities] Onset: 03-16-2025 Episodic Residual codes; unclassified (1 source) 33 weeks gestation of ; Translations: [33 weeks gestation of ] Onset: 03-16-2025 Episodic Residual codes; unclassified (1 source) 28 weeks gestation of ; Translations: [28 weeks gestation of ] Onset: 02-12-2025 Episodic Unclassified (10 sources) Patient encounter status; Translations: [Encounter to establish care] Onset: 10-07-2020 10-07-2020 Past or Other Problems Problem Classification Problem Date Documented Date Episodic/Chronic Administrative/social admission (20 sources) Patient encounter status; Translations: [Persons encountering health services in other specified circumstances] Onset: 10-07-2020 10-07-2020 Episodic Mood disorders (10 sources) Mood disorders Onset: 12-23-2021 Resolved: 03-02-2025 12-23-2021 Other circulatory disease (20 sources) Elevated blood-pressure reading without diagnosis of hypertension; Translations: [Elevated blood-pressure reading, without diagnosis of hypertension] Onset: 10-07-2020 10-07-2020 Episodic Other complications of (1 source) Unspecified infection of urinary tract in , unspecified trimester; Translations: [Unspecified infection of urinary tract in , unspecified trimester] Onset: 11-20-2024 Episodic Other ear and sense organ disorders (13 sources) Otalgia, right ear; Translations: [Otalgia, unspecified] Onset: 05-21-2022 05-21-2022 Episodic Other screening for suspected conditions (not mental disorders or infectious disease) (1 source) Encounter for screening, unspecified; Translations: [Encounter for screening, unspecified] Onset: 11-22-2024 Episodic Residual codes; unclassified (1 source) 16 weeks gestation of ; Translations: [16 weeks gestation of ] Onset: 11-20-2024 Episodic Unclassified (6 sources) Variable heart decelerations 03-17-2025 Comment on above: BPP 8/8, reactive NS T in WP Results Test Name Value Interpretation Reference Range Facility Tank Builder Office Visit Reporton 03-23-2025 Tank Builder Office Visit Report [facility] [address], [address] [place] [address] OFFICE VISIT Date of Service: 03/23/25 MR#: [id number] Acct: [id number] Name: TASIA ALMAGUER Rep #: [id number] : 1990 Provider: Dr. Mae bailey MD Age/Sex: 34/F Location[place] [facility] [place]: Signed Intake Vital Signs 01/17/25 15:47 03/16/25 14:27 03/23/25 10:41 Height 5 ft 7 in 5 ft 7 in 5 ft 7 in Weight: 290 lb 6 oz BMI 45.4 BP 128/83 H Intake Visit Reasons: 34 WK OB/NST Director Of Sustainability Programs Required: No Is patient in pain?: No Allergies No Known Allergies Allergy (Verified 03/23/25 10:43) Medications ???Medication ???Instructions ???Recorded ???Confirmed ???Type multivitamin no.47-iron fum 27 1 cap PO DAILY Check with primary 11/05/20 03/23/25 History mg-folate no.1 1 mg-dha 300 mg doctor capsule (PNV-DHA) sertraline 50 mg tablet (Zoloft) 50 mg PO DAILY Check with primary 11/05/20 03/23/25 History doctor metformin 500 mg tablet 500 mg PO BID Check with primary 0 09/08/24 03/23/25 History doctor blood-glucose sensor (FreeStyle #6 ea 09/25/24 03/23/25 Rx Vamsi 3 Plus Sensor device) pen needle, diabetic 32 gauge x #150 ea 09/25/24 03/23/25 Rx 5/32 (BD Ultra-Fine Kiah Pen Needle) insulin glargine 100 unit/mL (3 96 unit subcut DAILY DM 03/16/25 0 03/23/25 History mL) subcutaneous pen (Lantus Solostar U-100 Insulin) insulin lispro 100 unit/mL 22 unit subcut .COMPLEX 03/16/25 0 03/23/25 History subcutaneous pen labetalol 200 mg tablet 200 mg PO BID htn 03/16/25 5 History Last Menstrual Period: 07/25/24 Zika: Zika virus screening: Negative : No PFSH PFSH Medical History 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 Diabetes mellitus History of tetanus, diphtheria, and acellular pertussis booster vaccination (Tdap) Surgical History History of tonsillectomy and adenoidectomy Family History Mother Diabetes type 2 Hypertension Father Hyperlipemia Sister Diabetes type 2 Grandmother Diabetes type 2 Social History adopted: No household members: spouse, children and other details: Has custody of 2 neices housing: house number of children: 1 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 occupational exposures/hazards: No pets and animals: No history of recent travel: No sexually active: Yes Smoking Status: Never smoker second hand exposure: No alcohol intake: never substance use type: does not use diet: diabetic well-balanced diet: daily or most days caffeine: No eating out: rarely or never during the past year weight has: remained stable what type of physical activity do you participate in: walking frequency: 3-4 times per week duration: 15-30 minutes/day geoffrey/samaritan: None seatbelt use: always do you feel safe at home: Yes additional social history: : Slade - Andriy Madden History 2 Elective abortions Hx Para 1 Spontaneous abortions 0 Hx # Term Pregnancies Ectopic pregnancies Hx # Pregnancies Multiple births # of living children 1 Past Pregnancies Del. Date Name GA/Weeks Outcome Route Bth Weight Gen Labor Lgth Anesthesia Del Locatn Provider FOB 06/17/21 Ernie 39 live - full term 8lbs 3oz Male epidural [facility] S Joy June Delivery Date: 06/17/21 Last Updated by: Xuan Belcher GDM; mild uterine atony; 1st degree laceration HPI 34 WK OB/NST Details: TASIA ALMAGUER is a 34 year old who presents for routine OB visit. OB Visit GIANFRANCO Calculator Estimated Delivery Date Method Current WG Current Estimate 05/01/25 LMP (Certain) 34w 3d Other Estimates 05/03/25 Ultrasound #1 34w 1d Expected Delivery Route/Plan Labor Preferences- CB/BF classes: no labor support person: Slade labor intervention preferences: [] pain management options preferred: epidural cut cord/dad catch: cord : bottle PP control planned: discussed discussed possible routes of delivery and associated risks: [] special requests: [] Specific Issue/Plans Covid status: [] Flu vaccine: [] Tdap vaccine: given Rhogam: NA LARC form signed: yes Problem list reviewed and updated with the most current plan of care details and appropriate orders placed. Relevant counseling for the gestational age provided. Continue routine care and follow up unless otherwise noted in visit notes/problem list details Initial Weight: Not Recorded Date -???-???-???-???-?? ?-???-???-???-???-? (more content not included)... Normal [facility] OB Biophysical Prof W/O NSTo n 03-20-2025 OB Biophysical Prof W/O NST [facility] Imaging Services [address] [place], [place] [id number] OB Biophysical Prof W/O NST MR#: [id number] Acct: [id number] Name: TASIA ALMAGUER Rep #: [id number] : 1990 F 34 From: Srinivas mayes MD PCP: ZITA RANDOLPH MD Status: REG CLI Study: OB Biophysical Prof W/O NST Date of Exam: 03/02 04/26 Exam# [id number] Ordering Dr: Mae Reeves PROCEDURE: OB BIOPHYSICAL PROF W/O NST 03/20/2025 REASON FOR EXAM: WELL BEING TECHNIQUE: OB BIOPHYSICAL PROF W/O NST COMPARISON: March 16, 2025. FINDINGS Number: 1 Position: Transverse lie left Placental Position: Posterior and not low-lying Placental Abnormalities: No evidence of previa. ESTIMATED GESTATIONAL AGE: Baseline: 34 weeks and 0 days ESTIMATED DATE OF DELIVERY: Baseline: May 01, 2025 BIOPHYSICAL ASSESSMENT: Amniotic Fluid Volume: 6.6 cm Amniotic Fluid Index: 13.3 cm (8-24 cm normal range) Cardiac Motion: 140 beats per minute (average) Trunk and Limb Motion: Present. Biophysical profile: Breathing movements: 2 Gross body movements: 2 tone: 2 Amniotic fluid volume: 2 Total score: 8/8 US/OB Biophysical Prof W/O NST IMPRESSION: Normal biophysical profile with a score of 8/8 Reading Location: [facility] CC: ZITA RANDOLPH MD; Dr. Mae Reeves MD Program Research Specialist: Signed Normal [facility] OB Triage Physician Noteon 0 03-17-2025 OB Triage Physician Note [facility] Medical Records Department [address] [place] [address] OB Triage Physician Note 03/17/25 1058 MR#: [id number] Acct: [id number] Name: TASIA ALMAGUER Rep #: [id number] : 1990 34 From: Veronica Winter CNM PCP: Care Physician,No Primary Status:DEP CLI Y Location: [facility] HPI - General HPI Narrative TASIA ALMAGUER, is a 34 F who presents at 33.3 for variable decelerations in the office. presented to for prolonged monitoring and BPP. Maternal Data Information GIANFRANCO Calculator Estimated Delivery Date Method Current WG Current Estimate 05/01/25 LMP (Certain) 33w 4d Other Estimates 05/03/25 Ultrasound #1 33w 2d PFSH PFS Medical History 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 Diabetes mellitus History of tetanus, diphtheria, and acellular pertussis booster vaccination (Tdap) Home Medications ???Medication ???Instructions ???Recorded ???Last Taken ???Type multivitamin no.47-iron fum 27 1 cap PO DAILY Check with primary 11/05/20 03/16/25 08:00 History mg-folate no.1 1 mg-dha 300 mg doctor 1 cap capsule (PNV-DHA) sertraline 50 mg tablet (Zoloft) 50 mg PO DAILY Check with primary 11/05/20 03/16/25 08:00 History doctor 50 mg metformin 500 mg tablet 500 mg PO BID Check with primary 0 09/08/24 03/16/25 08:00 History doctor 1,000 mg blood-glucose sensor (FreeStyle #6 ea 09/25/24 Unknown Rx Vamsi 3 Plus Sensor device) pen needle, diabetic 32 gauge x #150 ea 09/25/24 Unknown Rx 5/32 (BD Ultra-Fine Kiah Pen Needle) insulin glargine 100 unit/mL (3 96 unit subcut DAILY DM 03/16/25 0 03/15/25 22:00 History mL) subcutaneous pen (Lantus 96 units Solostar U-100 Insulin) insulin lispro 100 unit/mL 22 unit subcut .COMPLEX 03/16/25 0 03/16/25 12:00 History subcutaneous pen 22 units labetalol 200 mg tablet 200 mg PO BID htn 03/16/25 5 08:00 History 200 mg Allergy/AdvReac Type Severity Reaction Status Date / Time No Known Allergies Allergy Verified 03/16/25 14:51 Family History Mother Diabetes type 2 Hypertension Father Hyperlipemia Sister Diabetes type 2 Grandmother Diabetes type 2 Surgical History History of tonsillectomy and adenoidectomy Social History adopted: No household members: spouse, children and other details: Has custody of 2 neices housing: house number of children: 1 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 occupational exposures/hazards: No pets and animals: No history of recent travel: No sexually active: Yes Smoking Status: Never smoker second hand exposure: No alcohol intake: never substance use type: does not use diet: diabetic well-balanced diet: daily or most days caffeine: No eating out: rarely or never during the past year weight has: remained stable what type of physical activity do you participate in: walking frequency: 3-4 times per week duration: 15-30 minutes/day geoffrey/samaritan: None seatbelt use: always do you feel safe at home: Yes additional social history: : Slade - Andriy Madden History 2 Elective abortions Hx Para 1 Spontaneous abortions 0 Hx # Term Pregnancies Ectopic pregnancies Hx # Pregnancies Multiple births # of living children 1 Past Pregnancies Del. Date Name GA/Weeks Outcome Route Bth Weight Gen Labor Lgth Anesthesia Del Locatn Provider FOB 06/17/21 Ernie 39 live - full term 8lbs 3oz Male epidural [facility] S June Delivery Date: 06/17/21 Last Updated by: Xuan Belcher GDM; mild uterine atony; 1st degree laceration Visit Details Expected Delivery Route/Plan Labor Preferences- CB/BF classes: no labor support person: Slade labor intervention preferences: [] pain management options preferred: epidural cut cord/dad catch: cord : bottle PP control planned: discussed discussed possible routes of delivery and associated risks: [] special requests: [] Plans Covid status: [] Flu vaccine: [] Tdap vaccine: given Rhogam: NA LARC form signed: yes Problem list reviewed and updated with the most current plan of care details and appropriate orders placed. Relevant counseling for the gestational age provided. Continue routine care and follow up unless otherwise noted in visit notes/problem list details OB Flowsheet Initial Weight: Not Recorded Date -???-???-???-???-?? ?-???-???-???-???-? ??-???-???- EGA Weight BP Urine Prot -???-???-???-???-?? ?-???-???-???-???-? ??-???-???- Glucose FHR FuHt Pres Dilation -???-???-???-???-?? ?-???-?? (more content not included)... Normal [facility] OB Triage Progress Noteon OB Triage Progress Note [facility] Medical Records Department [address] [place] [address] OB Triage Progress Note 03/17/25 1058 MR#: [id number] Acct: [id number] Name: TASIA ALMAGUER Rep #: [id number] : 1990 34 From: Veronica Winter CNM PCP: Care Physician,No Primary Status:[facility] DOS: Location: [facility] 03/17/25 1213 Date Veronica Winter CNM Cosigner Signature (if applicable): Date __ CC: CLAUDIO Winter; No Primary Care Physician Signed Normal [facility] Laboratory - Chemistry and C hemistry - challengeOrdered By: Tere Xiong on 03-16-2025 Glucose Ql (U) Negative [facility] - UrinalysisOrder ed By: Tere Xiong on 03-16-2025 Protein Ql (U) Negative [facility] OB Biophysical Prof W/O NSTo n 03-16-2025 OB Biophysical Prof W/O NST [facility] Imaging Services [address] [place] [id number] OB Biophysical Prof W/O NST MR#: [id number] Acct: [id number] Name: TASIA ALMAGUER Rep #: [id number] : 1990 F 34 From: Eleno Mejia DO PCP: Care Physician,No Primary Status: DEP CLI Study: OB Biophysical Prof W/O NST Date of Exam: 03/02 12/24 Exam# [id number] Ordering Dr: Tere Xiong CNM PROCEDURE: OB BIOPHYSICAL PROF W/O NST 03/16/2025 REASON FOR EXAM: WELLBEING TECHNIQUE: OB BIOPHYSICAL PROF W/O NST FINDINGS Number: 1 Position: Breech Placental Position: Posterior Placental Abnormalities: None. Not low-lying. ESTIMATED WEIGHT: ESTIMATED WEIGHT PERCENTILE (24+ weeks): ESTIMATED GESTATIONAL AGE: Baseline: 33 weeks 3 days. By Ultrasound: 33 weeks, ESTIMATED DATE OF DELIVERY: Baseline: May 01, 2025 By Ultrasound: BIOPHYSICAL ASSESSMENT: Amniotic Fluid Volume: Within normal limits. Amniotic Fluid Index: 11.7 (8-24 cm normal range) Cardiac Motion: 137 (average) Trunk and Limb Motion: Present. MATERNAL ANATOMY: Adnexa: Neither maternal ovary is successfully identified. Cervical Length (if measured): US/OB Biophysical Prof W/O NST IMPRESSION: Total biophysical profile score: 8/8 Reading Location[facility] CC: CLAUDIO Xiong; No Primary Care Physician Program Research Specialist: Signed Normal [facility] Tank Builder Office Visit Reporton 03-16-2025 Tank Builder Office Visit Report [facility]'s [address], [address] [place] [address] OFFICE VISIT Date of Service: 03/16/25 MR#: [id number] Acct: [id number] Name: TASIA ALMAGUER Rep #: [id number] : 1990 Provider: CLAUDIO Mckinney ams Age/Sex: 34/F [place] [facility] [place] Status: Signed Intake Vital Signs 01/17/25 15:47 03/09/25 13:43 03/16/25 13:31 Height 5 ft 7 in 5 ft 7 in 5 ft 7 in Weight: 288 lb 2 oz 290 lb 4 oz BMI 45.1 45.4 BP 133/86 H 120/79 Intake Visit Reasons: 33 WK NST ONLY Director Of Sustainability Programs Required: No Is patient in pain?: No Allergies No Known Allergies Allergy (Verified 03/16/25 13:34) Medications ???Medication ???Instructions ???Recorded ???Confirmed ???Type multivitamin no.47-iron fum 27 1 cap PO DAILY Check with primary 11/05/20 03/16/25 History mg-folate no.1 1 mg-dha 300 mg doctor capsule (PNV-DHA) sertraline 50 mg tablet (Zoloft) 50 mg PO DAILY Check with primary 11/05/20 03/16/25 History doctor metformin 500 mg tablet 500 mg PO BID Check with primary 0 09/08/24 03/16/25 History doctor blood-glucose sensor (FreeStyle #6 ea 09/25/24 03/16/25 Rx Vamsi 3 Plus Sensor device) pen needle, diabetic 32 gauge x #150 ea 09/25/24 03/16/25 Rx 5/32 (BD Ultra-Fine Kiah Pen Needle) labetalol 200 mg tablet 200 mg PO TID 30 days #90 tabs 03/16/25 Rx insulin lispro 100 unit/mL 30 unit (0.3 mL) subcut TID #30 mL 11/20/24 03/16/25 Rx subcutaneous pen insulin glargine 100 unit/mL (3 100 unit subcut DAILY #30 mL 01/0103/16/25 Rx mL) subcutaneous pen (Lantus Solostar U-100 Insulin) Last Menstrual Period: 07/25/24 Zika: Zika virus screening: Negative : No Have you fallen in the past year?: No PFSH PFSH Medical History 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 Diabetes mellitus History of tetanus, diphtheria, and acellular pertussis booster vaccination (Tdap) Surgical History History of tonsillectomy and adenoidectomy Family History Mother Diabetes type 2 Hypertension Father Hyperlipemia Sister Diabetes type 2 Grandmother Diabetes type 2 Social History adopted: No household members: spouse, children and other details: Has custody of 2 neamisha housing: house number of children: 1 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 occupational exposures/hazards: No pets and animals: No history of recent travel: No sexually active: Yes Smoking Status: Never smoker second hand exposure: No alcohol intake: never substance use type: does not use diet: diabetic well-balanced diet: daily or most days caffeine: No eating out: rarely or never during the past year weight has: remained stable what type of physical activity do you participate in: walking frequency: 3-4 times per week duration: 15-30 minutes/day geoffrey/samaritan: None seatbelt use: always do you feel safe at home: Yes additional social history: : [place] History 2 Elective abortions Hx Para 1 Spontaneous abortions 0 Hx # Term Pregnancies Ectopic pregnancies Hx # Pregnancies Multiple births # of living children 1 Past Pregnancies Del. Date Name GA/Weeks Outcome Route Bth Weight Infant Gen Labor Lgth Anesthesia Del Locatn Provider FOB 06/17/21 Ernie 39 live - full term 8lbs 3oz Male epidural [facility] S Joy June Delivery Date: 06/17/21 Last Updated by: Xuan Belcher GDM; mild uterine atony; 1st degree laceration HPI 33 WK NST ONLY Details: TASIA ALMAGUER is a 34 year old who presents for routine OB visit. OB Visit GIANFRANCO Calculator Estimated Delivery Date Method Current WG Current Estimate 05/01/25 LMP (Certain) 33w 3d Other Estimates 05/03/25 Ultrasound #1 33w 1d Expected Delivery Route/Plan Labor Preferences- CB/BF classes: no labor support person: Slade labor intervention preferences: [] pain management options preferred: epidural cut cord/dad catch: cord : bottle PP control planned: discussed discussed possible routes of delivery and associated risks: [] special requests: [] Specific Issue/Plans Covid status: [] Flu vaccine: [] Tdap vaccine: given Rhogam: NA LARC form signed: yes Problem list reviewed and updated with the most current plan of care details and appropriate orders placed. Relevant counseling for the gestational age provided. Continue routine care and follow up unless otherwise noted in visit notes/problem list details Initial Weight: Not Rec (more content not included)... [facility] OB Biophysical Prof W/O NSTo n 08-12-2025 OB Biophysical Prof W/O NST [facility] [address] [place], [place] [id number] OB Biophysical Prof W/O NST MR#: [id number] Acct: [id number] Name: TASIA ALMAGUER Rep #: [id number] : 1990 F 34 From: Srinivas mayes MD PCP: Care Physician,No Primary Status: REG CLI Study: OB Biophysical Prof W/O NST Date of Exam: 03/02 09/26 Exam# [id number] Ordering Dr: Mae Reeves PROCEDURE: OB BIOPHYSICAL PROF W/O NST 03/13/2025 REASON FOR EXAM: WELL BEING TECHNIQUE: OB BIOPHYSICAL PROF W/O NST COMPARISON: March 06, 2025. FINDINGS Number: 1 Position: Transverse lie left Placental Position: Posterior and not low-lying Placental Abnormalities: No evidence of previa. ESTIMATED GESTATIONAL AGE: Baseline: 33 weeks and 0 days ESTIMATED DATE OF DELIVERY: Baseline: May 01, 2025. BIOPHYSICAL ASSESSMENT: Amniotic Fluid Volume: 5 cm. Amniotic Fluid Index: 15.7 cm (8-24 cm normal range) Cardiac Motion: 147 beats per minute (average) Trunk and Limb Motion: Present. MATERNAL ANATOMY: Adnexa: Neither maternal ovary is successfully identified. Biophysical profile: Breathing movements: 2 Gross body movements: 2 tone: 2 Amniotic fluid volume: 2 Total score: 8/8 US/OB Biophysical Prof W/O NST IMPRESSION: Normal biophysical profile. Reading Location: [id number] CC: Dr. Mae Reeves MD; No Primary Care Physician Program Research Specialist: Signed Normal [facility] - Chemistry and C hemistry - challengeOrdered By: Tere Xiong on 03-09-2025 Glucose Ql (U) Negative [facility] - UrinalysisOrder ed By: Tere Xiong on 03-09-2025 Protein Ql (U) Negative [facility] Tank [facility] Office Visit Reporton 03-09-2025 Tank Builder Office Visit Report [facility] [address] [place] [address], [address] [place] [address] OFFICE VISIT Date of Service: 03/09/25 MR#: [id number] Acct: [id number] Name: TASIA ALMAGUER Rep #: [id number] : 1990 Provider: CLAUDIO Mckinney ams Age/Sex: 34/F [place] [facility] [place]: Signed Intake Vital Signs 01/17/25 15:47 02/26/25 13:25 03/09/25 13:43 Height 5 ft 7 in 5 ft 7 in 5 ft 7 in Weight: 286 lb 8 oz 288 lb 2 oz BMI 44.9 45.1 BP 133/79 H 133/86 H Intake Visit Reasons: 32 WK OB/NST Chief Complaint: 32wk ob/nst Director Of Sustainability Programs Required: No Is patient in pain?: No Allergies No Known Allergies Allergy (Verified 03/09/25 13:42) Medications ???Medication ???Instructions ???Recorded ???Confirmed ???Type multivitamin no.47-iron fum 27 1 cap PO DAILY Check with primary 11/05/20 03/09/25 History mg-folate no.1 1 mg-dha 300 mg doctor capsule (PNV-DHA) sertraline 50 mg tablet (Zoloft) 50 mg PO DAILY Check with primary 11/05/20 03/09/25 History doctor metformin 500 mg tablet 500 mg PO BID Check with primary 0 09/08/24 03/09/25 History doctor blood-glucose sensor (FreeStyle #6 ea 09/25/24 03/09/25 Rx Vamsi 3 Plus Sensor device) pen needle, diabetic 32 gauge x #150 ea 09/25/24 03/09/25 Rx 5/32 (BD Ultra-Fine Kiah Pen Needle) labetalol 200 mg tablet 200 mg PO TID 30 days #90 tabs 03/09/25 Rx insulin lispro 100 unit/mL 30 unit (0.3 mL) subcut TID #30 mL 11/20/24 03/09/25 Rx subcutaneous pen insulin glargine 100 unit/mL (3 100 unit subcut DAILY #30 mL 01/0103/09/25 Rx mL) subcutaneous pen (Lantus Solostar U-100 Insulin) Last Menstrual Period: 07/25/24 : No PFSH PFSH Medical History 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 Diabetes mellitus History of tetanus, diphtheria, and acellular pertussis booster vaccination (Tdap) Surgical History History of tonsillectomy and adenoidectomy Family History Mother Diabetes type 2 Hypertension Father Hyperlipemia Sister Diabetes type 2 Grandmother Diabetes type 2 Social History adopted: No household members: spouse, children and other details: Has custody of 2 neices housing: house number of children: 1 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 occupational exposures/hazards: No pets and animals: No history of recent travel: No sexually active: Yes Smoking Status: Never smoker second hand exposure: No alcohol intake: never substance use type: does not use diet: diabetic well-balanced diet: daily or most days caffeine: No eating out: rarely or never during the past year weight has: remained stable what type of physical activity do you participate in: walking frequency: 3-4 times per week duration: 15-30 minutes/day geoffrey/samaritan: None seatbelt use: always do you feel safe at home: Yes additional social history: : Slade Madden History 2 Elective abortions Hx Para 1 Spontaneous abortions 0 Hx # Term Pregnancies Ectopic pregnancies Hx # Pregnancies Multiple births # of living children 1 Past Pregnancies Del. Date Name GA/Weeks Outcome Route Bth Weight Infant Gen Labor Lgth Anesthesia Del Locatn Provider FOB 06/17/21 Ernie 39 live - full term 8lbs 3oz Male epidural [facility] S Joy June Delivery Date: 06/17/21 Last Updated by: Xuan Belcher GDM; mild uterine atony; 1st degree laceration HPI 32 WK OB/NST Details: TASIA ALMAGUER is a 34 year old who presents for routine OB visit. OB Visit GIANFRANCO Calculator Estimated Delivery Date Method Current WG Current Estimate 05/01/25 LMP (Certain) 32w 3d Other Estimates 05/03/25 Ultrasound #1 32w 1d Expected Delivery Route/Plan Labor Preferences- CB/BF classes: no labor support person: Slade labor intervention preferences: [] pain management options preferred: epidural cut cord/dad catch: cord : bottle PP control planned: discussed discussed possible routes of delivery and associated risks: [] special requests: [] Specific Issue/Plans Covid status: [] Flu vaccine: [] Tdap vaccine: given Rhogam: NA LARC form signed: yes Problem list reviewed and updated with the most current plan of care details and appropriate orders placed. Relevant counseling for the gestational age provided. Continue routine care and follow up unless otherwise noted in visit notes/problem list details Initial Weight: Not Recorded Date -???-???-???-???-?? ?-???-???-???- (more content not included)... Normal [facility] OB Biophysical Prof W/O NSTo n 03-06-2025 OB Biophysical Prof W/O NST [facility] [address] [place] [id number] OB Biophysical Prof W/O NST MR#: [id number] Acct: [id number] Name: TASIA ALMAGUER Rep #: [id number] : 1990 F 34 From: Srinivas mayes MD PCP: Care Physician,No Primary Status: [facility] Study: OB Biophysical Prof W/O NST Date of Exam: 12/24 Exam# [id number] Ordering Dr: Mae Reeves PROCEDURE: OB BIOPHYSICAL PROF W/O NST 03/06/2025 REASON FOR EXAM: WELL BEING TECHNIQUE: OB BIOPHYSICAL PROF W/O NST COMPARISON: None FINDINGS LMP: July 25 2024 Number: 1 Position: Vertex Placental Position: Posterior and not low-lying Placental Abnormalities: No evidence of previa. ESTIMATED GESTATIONAL AGE: Baseline: 32 weeks and 0 days ESTIMATED DATE OF DELIVERY: Baseline: May 01, 2025 BIOPHYSICAL ASSESSMENT: Amniotic Fluid Volume: 5.4 cm Amniotic Fluid Index: 16.5 cm (8-24 cm normal range) Cardiac Motion: 164 beats per minute (average) Trunk and Limb Motion: Present. MATERNAL ANATOMY: Adnexa: Neither maternal ovary is successfully identified. Biophysical profile: Breathing movements: 2 Gross body movements: 2 tone: 2 Amniotic fluid volume: 2 Total score: 8/8 US/OB Biophysical Prof W/O NST IMPRESSION: Normal biophysical profile. Reading Location: [facility] CC: Dr. Mae Reeves MD; No Primary Care Physician Program Research Specialist: Signed Normal [facility] OB Limited With Biometricson 03-06-2025 OB Limited With Biometrics [facility] [address] [place], [place] [id number] OB Limited With Biometrics MR#: [id number] Acct: [id number] Name: TASIA ALMAGUER Rep #: [id number] : 1990 F 34 From: Srinivas mayes MD PCP: Care Physician,No Primary Status: REG CLI Study: OB Limited With Biometrics Date of Exam: 03/06 Exam# [id number] Ordering Dr: Mae Reeves PROCEDURE: OB LIMITED WITH BIOMETRICS 03/06/2025 REASON FOR EXAM: GROWTH TECHNIQUE: OB LIMITED WITH BIOMETRICS COMPARISON: None FINDINGS LMP: July 25, 2024. Number: 1 Position: Vertex Placental Position: Posterior and not low-lying Placental Abnormalities: No evidence of previa. DIMENSIONS: Biparietal Diameter: 7.95 cm: 31 weeks and 6 days: 38 percentile/ Head Circumference: 29.68 cm: 32 weeks and 6 days: 34 percentile/ Abdominal Circumference: 27.26 cm: 31 weeks and 2 days: 29 percentile/ Femur Length: 5.84 cm: 30 weeks and 4 days: 7 percentile/ ESTIMATED WEIGHT: 1732 g plus/-260 g ESTIMATED WEIGHT PERCENTILE (24+ weeks): 20 percentile ESTIMATED GESTATIONAL AGE: Baseline: 32 weeks and 0 days By Ultrasound: 31 weeks and 4 days ESTIMATED DATE OF DELIVERY: Baseline: May 01, 2025 By Ultrasound: May 04, 2024 BIOPHYSICAL ASSESSMENT: Amniotic Fluid Volume: 5.1 cm Amniotic Fluid Index: 17.2 cm (8-24 cm normal range) Cardiac Motion: 145 beats per minute (average) Trunk and Limb Motion: Present. MATERNAL ANATOMY: Adnexa: Neither maternal ovary is successfully identified. US/OB Limited With Biometrics IMPRESSION: Single live intrauterine gestation with a mean gestational age of 31 weeks and 4 days. Reading Location: [id number] CC: Dr. Mae Reeves MD; No Primary Care Physician Program Research Specialist: Signed Normal [facility] - Chemistry and C hemistry - challengeOrdered By: Tere Xiong on 02-26-2025 Glucose Ql (U) Negative [facility] - UrinalysisOrder ed By: Tere Xiong on 02-26-2025 Protein Ql (U) Negative [facility] Tank Builder Office Visit Reporton 02-26-2025 Tank Builder Office Visit Report [facility] [address], [address] [place] [address] OFFICE VISIT Date of Service: 02/26/25 MR#: [id number] Acct: [id number] Name: TASIA ALMAGUER Rep #: [id number] : 1990 Provider: CLAUDIO Mckinney ams Age/Sex: 34/F Location[place] [facility] [place] Status: Signed Intake Vital Signs 12/18/24 15:44 02/12/25 13:48 02/26/25 13:25 Height 5 ft 7 in 5 ft 7 in 5 ft 7 in Weight: 286 lb 8 oz BMI 44.9 BP 133/79 H Intake Visit Reasons: 30 wk ob Chief Complaint: 30wk OB Director Of Sustainability Programs Required: No Is patient in pain?: No Allergies No Known Allergies Allergy (Verified 02/26/25 13:23) Medications ???Medication ???Instructions ???Recorded ???Confirmed ???Type multivitamin no.47-iron fum 27 1 cap PO DAILY Check with primary 11/05/20 02/26/25 History mg-folate no.1 1 mg-dha 300 mg doctor capsule (PNV-DHA) sertraline 50 mg tablet (Zoloft) 50 mg PO DAILY Check with primary 11/05/20 02/26/25 History doctor metformin 500 mg tablet 500 mg PO BID Check with primary 0 09/08/24 02/26/25 History doctor blood-glucose sensor (FreeStyle #6 ea 09/25/24 02/26/25 Rx Vamsi 3 Plus Sensor device) pen needle, diabetic 32 gauge x #150 ea 09/25/24 02/26/25 Rx 5/32 (BD Ultra-Fine Kiah Pen Needle) labetalol 200 mg tablet 200 mg PO TID 30 days #90 tabs 02/26/25 Rx insulin lispro 100 unit/mL 30 unit (0.3 mL) subcut TID #30 mL 11/20/24 02/26/25 Rx subcutaneous pen insulin glargine 100 unit/mL (3 100 unit subcut DAILY #30 mL 01/0102/26/25 Rx mL) subcutaneous pen (Lantus Solostar U-100 Insulin) Last Menstrual Period: 07/25/24 : No PFSH PFSH Medical History 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 Diabetes mellitus History of tetanus, diphtheria, and acellular pertussis booster vaccination (Tdap) Surgical History History of tonsillectomy and adenoidectomy Family History Mother Diabetes type 2 Hypertension Father Hyperlipemia Sister Diabetes type 2 Grandmother Diabetes type 2 Social History adopted: No household members: spouse, children and other details: Has custody of 2 neices housing: house number of children: 1 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 occupational exposures/hazards: No pets and animals: No history of recent travel: No sexually active: Yes Smoking Status: Never smoker second hand exposure: No alcohol intake: never substance use type: does not use diet: diabetic well-balanced diet: daily or most days caffeine: No eating out: rarely or never during the past year weight has: remained stable what type of physical activity do you participate in: walking frequency: 3-4 times per week duration: 15-30 minutes/day geoffrey/samaritan: None seatbelt use: always do you feel safe at home: Yes additional social history: : June - [employer] History 2 Elective abortions Hx Para 1 Spontaneous abortions 0 Hx # Term Pregnancies Ectopic pregnancies Hx # Pregnancies Multiple births # of living children 1 Past Pregnancies Del. Date Name GA/Weeks Outcome Route Bth Weight Gen Labor Lgth Anesthesia Del Locatn Provider FOB 06/17/21 Ernie 39 live - full term 8lbs 3oz Male epidural [facility] S M Slade Delivery Date: 06/17/21 Last Updated by: Xuan Belcher GDM; mild uterine atony; 1st degree laceration HPI 30 wk ob Details: TASIA ALMAGUER is a 34 year old who presents for routine OB visit. OB Visit GIANFRANCO Calculator Estimated Delivery Date Method Current WG Current Estimate 05/01/25 LMP (Certain) 30w 6d Other Estimates 05/03/25 Ultrasound #1 30w 4d Expected Delivery Route/Plan Labor Preferences- CB/BF classes: no labor support person: Slade labor intervention preferences: [] pain management options preferred: epidural cut cord/dad catch: cord : bottle PP control planned: discussed discussed possible routes of delivery and associated risks: [] special requests: [] Specific Issue/Plans Covid status: [] Flu vaccine: [] Tdap vaccine: given Rhogam: NA LARC form signed: yes Problem list reviewed and updated with the most current plan of care details and appropriate orders placed. Relevant counseling for the gestational age provided. Continue routine care and follow up unless otherwise noted in visit notes/problem list details Initial Weight: Not Recorded Date -???-???-???-???-?? ?-???-???-???-???-? ??-???-???- EGA Weight BP Urine (more content not included)... Normal [facility] Absolute lymphocyte countOrd ered By: Mae Reeves on 02-12-2025 Lymphocytes Auto (Unsp spec) [#/Vol] 2.60 10*3/uL 0.83-4.51 [facility] Absolute neutrophil countOrd ered By: Mae Reeves on 02-12-2025 Neutrophils (Bld) [#/Vol] 7.4 10*3/uL 2.0-7.7 [facility] Automated blood erythrocyte countOrdered By: Mae Reeves on 02-12-2025 RBC (Bld) [#/Vol] 3.75 10*6/uL Low 4.2-5.4 [facility] Comment on above: Performed By: #### L 509.8002, L100.0100, L3890.6006 ####[facility] [address] [place], [place], [id number] Automated blood hematocrit ( percentage)Ordered By: Mae Reeves on 02-12-2025 Hematocrit (Bld) [Volume fraction] 33.8 % Low 37-47 [facility] Comment on above: Performed By: #### L 509.8002, L100.0100, L3890.6006 ####[facility] [address] [place], [place], [phone] Automated lymphocyte count a s percentage of total leukocytesOrdered By: Mae Reeves on 02-12-2025 Lymphocytes/100 WBC Auto (Unsp spec) 23.8 % 19-41 [facility] Basophil percentageOrdered B y: Mae Reeves on 02-12-2025 Basophils/100 WBC (Bld) 0.3 % Normal 0-1 [facility] Comment on above: Performed By: #### L 509.8002, L100.0100, L3890.6006 ####[facility] [address] [place], [place], [id number] CBC W/Diff, Automatedon 07- Absolute Lymph 2.60 X10 3/uL Normal 0.83-4.51 [facility] Comment on above: Performed By: #### L 509.8002, L100.0100, L3890.6006 ####[facility] [address] [place], [place], [id number] Absolute Neut 7.4 X10 3/uL Normal 2.0-7.7 [facility] Comment on above: Performed By: #### L 509.8002, L100.0100, L3890.6006 ####[facility] [address] [place], [address] IG% 0.800 Normal 0.0-0.9 [facility] Comment on above: Result Comment: IG% - Immature Granulocytes (promyelocytes, myelocytes and metamyelocytes) > 1% indicates that a LEFT SHIFT is Present. Performed By: #### L 509.8002, L100.0100, L3890.6006 ####[facility] [address] [place], [address] Lymphocytes/100 WBC (Bld) 23.8 % Normal 19-41 [facility] Comment on above: Performed By: #### L 509.8002, L100.0100, L3890.6006 ####[facility] [address] [place], [address] Nucleated RBC (Bld) [#/Vol] 0 10*3/uL Normal 0-5 [facility] Comment on above: Performed By: #### L 509.8002, L100.0100, L3890.6006 ####[facility] [address] [place], [address] RDW SD 43.9 fl Normal 35.1-43.9 [facility] Comment on above: Performed By: #### L 509.8002, L100.0100, L3890.6006 ####[facility] [address] [place], [address] Eosinophil percentageOrdered By: Mae Reeves on 02-12-2025 Eosinophils/100 WBC (Bld) 2.2 % Normal 0-5 [facility] Comment on above: Performed By: #### L 509.8002, L100.0100, L3890.6006 ####[facility] [address] [place], [address] Erythrocyte distribution wid th ratioOrdered By: Mae Reeves on 02-12-2025 Erythrocyte distribution width (RBC) [Ratio] 13.4 % Normal 11.6-14.6 [facility] Comment on above: Performed By: #### L 509.8002, L100.0100, L3890.6006 ####[facility] [address] [place], [place], [id number] Erythrocyte distribution wid th standard deviationOrdered By: Mae Reeves on 02-12-2025 Erythrocyte distribution width (RBC) [Ratio] 43.9 fl 35.1-43.9 [facility] HIVon 02-12-2025 HIV Non-Reactive Normal Nonreactive [facility] Comment on above: Result Comment: Non- Reactive Reactive Repeatedly reactive samples must be confirmed according to CDC recommended confirmatory algorithms. The subresults for either HIVAG or AHIV can be used as an aid in the selection of the confirmation algorithm for reactive samples. Send out specimens with Reactive results to [facility] for confirmation. Order the HIV antibody detection and differentiation: lc#[id number] Performed By: #### L 509.8002, L100.0100, L3890.6006 ####[facility] [address] [place], [place], [phone] Hemoglobin measurementOrdere d By: Mae Reeves on 02-12-2025 Hemoglobin (Bld) [Mass/Vol] 11.2 g/dL Low 12.0-15.0 [facility] Comment on above: Performed By: #### L 509.8002, L100.0100, L3890.6006 ####[facility] [address] [place], [address] Immature granulocytes/100 WB C Auto (Bld)Ordered By: Mae Reeves on 02-12-2025 Immature granulocytes/100 WBC (Bld) 0.800 % 0.0-0.9 [facility] Comment on above: IG% - Immature Granu locytes (promyelocytes, myelocytes and metamyelocytes) > 1% indicates that a LEFT SHIFT is Present. Laboratory - Chemistry and C hemistry - challengeOrdered By: Rebecca Jackson on 02-12-2025 Glucose Ql (U) Negative [facility] - UrinalysisOrder ed By: Rebecca Jackson on 02-12-2025 Protein Ql (U) Negative [facility] MCV (mean corpuscular volume ) determinationOrdered By: Mae Reeves on 02-12-2025 MCV (RBC) [Entitic vol] 90.1 fL Normal 81-99 [facility] Comment on above: Performed By: #### L 509.8002, L100.0100, L3890.6006 ####[facility] [address] [place], [address] Mean corpuscular hemoglobin (MCH) determinationOrdered By: Mae Reeves on 02-12-2025 MCH (RBC) [Entitic mass] 29.9 pg Normal 27.0-32.0 [facility] Comment on above: Performed By: #### L 509.8002, L100.0100, L3890.6006 ####[facility] [address] [place], [address] Mean corpuscular hemoglobin concentration (MCHC) determinationOrdered By: Mae Reeves on 02-12-2025 MCHC (RBC) [Mass/Vol] 33.1 g/dL Normal 32-36 [facility] Comment on above: Performed By: #### L 509.8002, L100.0100, L3890.6006 ####[facility] [address] [place], [address] Mean platelet volume determi nationOrdered By: Mae Reeves on 02-12-2025 Platelet mean volume (Bld) [Entitic vol] 9.8 fL Normal 6.2-12.0 [facility] Comment on above: Performed By: #### L 509.8002, L100.0100, L3890.6006 ####[facility] [address] [place], [address] Monocyte percentageOrdered B y: Mae Reeves on 02-12-2025 Monocytes/100 WBC (Bld) 5.5 % Normal 0-10 [facility] Comment on above: Performed By: #### L 509.8002, L100.0100, L3890.6006 ####[facility] [address] [place], [place], [id number] Neutrophil percentageOrdered By: Mae Novanetta on 02-12-2025 Neutrophils/100 WBC (Bld) 67.4 % Normal 47-70 [facility] Comment on above: Performed By: #### L 509.8002, L100.0100, L3890.6006 ####[facility] [address] [place], [place], [id number] No Panel InformationOrdered By: Mae Reeves on 02-12-2025 HIV (1&2) Antibody Non-Reactive [facility]reactive [facility] Comment on above: Non-ReactiveReactive Repeatedly reactive samples must be confirmed according to CDC recommended confirmatory algorithms. The subresults for either HIVAG or AHIV can be used as an aid in the selection of the confirmation algorithm for reactive samples.Send out specimens with Reactive results to [facility] for confirmation.Order the HIV antibody detection and differentiation: #[id number] Nucleated red blood cell per centageOrdered By: Mae Reeves on 02-12-2025 Nucleated RBC/100 WBC (Bld) [Ratio] 0 % 0-5 [facility] Office Visit Reporton 02-12-2025 Tank [facility] Office Visit Report [facility] [address], [address] [place] [address] OFFICE VISIT Date of Service: 02/12/25 MR#: [id number] Acct: [id number] Name: TASIA ALMAGUER Rep #: [id number] : 1990 Provider: VIVIANE elkins Age/Sex: 34/F [place] [facility] [place] Status: Signed with Addenda ADDENDUM by Nidhi Lyman on 02/12/25 at 1423 Office Procedure Documentation entered by Nidhi Lyman 02/12/25 14:23: Immunizations Adacel(Tdap Adolesn/Adult)(PF) 2 Lf-(2.5-5-3-5)-5 Lf/0.5 mL IM syringe Performing Provider: Rebecca Jackson DRY BOX TENDER, DRY BOX TENDER-C Performing Location: [facility] Administered by: Nidhi Lyman on 02/12/25 14:22 Dose Route Admin Location Dispensed Lot Number Expiration Date NDC Man ufacturer 0.5 mL IM Left Deltoid 0.5 mL [id number] 01/29/27 [id number] [employer] VIS Given Date VIS Provided VIS Publication Date 02/12/25 Single Vaccine 24 Eligibility Eligibility Date Funding Source Not Applicable Date cc: * Signed Intake Vital Signs 12/18/24 15:44 01/17/25 15:47 02/12/25 13:39 02/12/25 13:48 Height 5 ft 7 in 5 ft 7 in 5 ft 7 in 5 ft 7 in Weight: 287 lb BMI 44.9 BP 122/82 H Intake Visit Reasons: 28wk ob Chief Complaint: 28 Week OB Director Of Sustainability Programs Required: No Is patient in pain?: No Allergies No Known Allergies Allergy (Verified 02/12/25 13:38) Medications ???Medication ???Instructions ???Recorded ???Confirmed ???Type multivitamin no.47-iron fum 27 1 cap PO DAILY Check with primary 11/05/20 02/12/25 History mg-folate no.1 1 mg-dha 300 mg doctor capsule (PNV-DHA) sertraline 50 mg tablet (Zoloft) 50 mg PO DAILY Check with primary 11/05/20 02/12/25 History doctor metformin 500 mg tablet 500 mg PO BID Check with primary 0 09/08/24 02/12/25 History doctor blood-glucose sensor (FreeStyle #6 ea 09/25/24 02/12/25 Rx Vamsi 3 Plus Sensor device) pen needle, diabetic 32 gauge x #150 ea 09/25/24 02/12/25 Rx 5/32 (BD Ultra-Fine Kiah Pen Needle) labetalol 200 mg tablet 200 mg PO TID 30 days #90 tabs 02/12/25 Rx insulin lispro 100 unit/mL 30 unit (0.3 mL) subcut TID #30 mL 11/20/24 02/12/25 Rx subcutaneous pen insulin glargine 100 unit/mL (3 100 unit subcut DAILY #30 mL 01/0102/12/25 Rx mL) subcutaneous pen (Lantus Solostar U-100 Insulin) Last Menstrual Period: 07/25/24 Zika: Zika virus screening: Negative : No PFSH PFSH Medical History 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 Diabetes mellitus History of tetanus, diphtheria, and acellular pertussis booster vaccination (Tdap) Surgical History History of tonsillectomy and adenoidectomy Family History Mother Diabetes type 2 Hypertension Father Hyperlipemia Sister Diabetes type 2 Grandmother Diabetes type 2 Social History adopted: No household members: spouse, children and other details: Has custody of 2 neices housing: house number of children: 1 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 occupational exposures/hazards: No pets and animals: No history of recent travel: No sexually active: Yes Smoking Status: Never smoker second hand exposure: No alcohol intake: never substance use type: does not use diet: diabetic well-balanced diet: daily or most days caffeine: No eating out: rarely or never during the past year weight has: remained stable what type of physical activity do you participate in: walking frequency: 3-4 times per week duration: 15-30 minutes/day geoffrey/samaritan: None seatbelt use: always do you feel safe at home: Yes additional social history: : Slade Madden History 2 Elective abortions Hx Para 1 Spontaneous abortions 0 Hx # Term Pregnancies Ectopic pregnancies Hx # Pregnancies Multiple births # of living children 1 Past Pregnancies Del. Date Name GA/Weeks Outcome Route Bth Weight Infant Gen Labor Lgth Anesthesia Del Locatn Provider FOB 06/17/21 Ernie 39 live - full term 8lbs 3oz Male epidural [facility] Carmelo June Delivery Date: 06/17/21 Last Updated by: Xuan Belcher GDM; mild uterine atony; 1st degree laceration HPI 28wk ob Details: TASIA ALMAGUER is a 34 year old who presents for routine OB visit. OB Visit GIANFRANCO Calculator Estimated Delivery Date Method Current WG Current Estimate 05/01/25 LMP (Certain) 28w 6d Other Estimates 05/03/25 Ultrasound #1 28w 4d (more content not included)... Normal [facility] Platelet countOrdered By: Joel Reeves on 02-12-2025 Platelets (Bld) [#/Vol] 348 10*3/uL Normal 150-450 [facility] Comment on above: Performed By: #### L 509.8002, L100.0100, L3890.6006 ####[facility] [address] [place], [address] Syphilis Antibodieson 2024 Syphilis Abs Non-Reactive Normal Nonreactive [facility] Comment on above: Performed By: #### L 509.8002, L100.0100, L3890.6006 ####[facility] [address] [place], [address] White blood cell (WBC) count Ordered By: Mae Reeves on 02-12-2025 WBC (Bld) [#/Vol] 10.9 10*3/uL Normal 4.4-11.0 [facility] Comment on above: Performed By: #### L 509.8002, L100.0100, L3890.6006 ####[facility] [address] [place], [address] Laboratory - Chemistry and C hemistry - challengeOrdered By: Mae Reeves on 01-17-2025 Glucose Ql (U) Negative [facility] Laboratory - UrinalysisOrder ed By: Mae Reeves on 01-17-2025 Protein Ql (U) Negative [facility] Tank [facility] Office Visit Reporton 01-17-2025 Tank Builder Office Visit Report [facility]'s [address], [address] [place] [address] OFFICE VISIT Date of Service: 01/17/25 MR#: [id number] Acct: [id number] Name: TASIA ALMAGUER Rep #: [id number] : 1990 Provider: Dr. Mae bailey MD Age/Sex: 34/F [place] [facility] [place]: Signed Intake Vital Signs 10/23/24 14:32 01/01/25 09:01 01/17/25 15:42 01/17/25 15:47 Height 5 ft 7 in 5 ft 7 in 5 ft 7 in 5 ft 7 in Weight: 277 lb BMI 43.4 BP 118/78 Intake Visit Reasons: 24wk ob Director Of Sustainability Programs Required: No Is patient in pain?: No Allergies No Known Allergies Allergy (Verified 01/17/25 15:43) Medications ???Medication ???Instructions ???Recorded ???Confirmed ???Type multivitamin no.47-iron fum 27 1 cap PO DAILY Check with primary 11/05/20 01/17/25 History mg-folate no.1 1 mg-dha 300 mg doctor capsule (PNV-DHA) sertraline 50 mg tablet (Zoloft) 50 mg PO DAILY Check with primary 11/05/20 01/17/25 History doctor metformin 500 mg tablet 500 mg PO BID Check with primary 0 09/08/24 01/17/25 History doctor blood-glucose sensor (FreeStyle #6 ea 09/25/24 01/17/25 Rx Vamsi 3 Plus Sensor device) pen needle, diabetic 32 gauge x #150 ea 09/25/24 01/17/25 Rx 5/32 (BD Ultra-Fine Kiha Pen Needle) labetalol 200 mg tablet 200 mg PO TID 30 days #90 tabs 01/17/25 Rx insulin lispro 100 unit/mL 30 unit (0.3 mL) subcut TID #30 mL 11/20/24 01/17/25 Rx subcutaneous pen insulin glargine 100 unit/mL (3 100 unit subcut DAILY #30 mL 01/0101/17/25 Rx mL) subcutaneous pen (Lantus Solostar U-100 Insulin) Last Menstrual Period: 07/25/24 Zika: Zika virus screening: Negative : No [facility] Medical History (Updated 01/17/25 @ 16:[address] 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 occupational exposures/hazards: No pets and animals: No history of recent travel: No sexually active: Yes Smoking Status: Never smoker second hand exposure: No alcohol intake: never substance use type: does not use diet: diabetic well-balanced diet: daily or most days caffeine: No eating out: rarely or never during the past year weight has: remained stable what type of physical activity do you participate in: walking frequency: 3-4 times per week duration: 15-30 minutes/day geoffrey/samaritan: None seatbelt use: always do you feel safe at home: Yes additional [place]: [place] [facility] [place] 2 Elective abortions Hx Para 1 Spontaneous abortions 0 Hx # Term Pregnancies Ectopic pregnancies Hx # Pregnancies Multiple births # of living children 1 Past Pregnancies Del. Date Name GA/Weeks Outcome Route Bth Weight Gen Labor Lgth Anesthesia Del Locatn Provider FOB 06/17/21 Ernie 39 live - full term 8lbs 3oz Male epidural [facility] Carmelo June Delivery Date: 06/17/21 Last Updated by: Xuan Belcher GDM; mild uterine atony; 1st degree laceration HPI 24wk ob Details: TASIA ALMAGUER is a 34 year old who presents for routine OB visit. OB Visit GIANFRANCO Calculator Estimated Delivery Date Method Current WG Current Estimate 05/01/25 LMP (Certain) 25w 1d Other Estimates 05/03/25 Ultrasound #1 24w 6d Expected Delivery Route/Plan Labor Preferences- CB/BF classes: [] labor support person: [] labor intervention preferences: [] pain management options preferred: [] cut cord/dad catch: [] : [] PP control planned: [] discussed possible routes of delivery and associated risks: [] special requests: [] Specific Issue/Plans Covid status: [] Flu vaccine: [] Tdap vaccine: [] Rhogam: [] LARC form signed: [] Problem list reviewed and updated with the most current plan of care details and appropriate orders placed. Relevant counseling for the gestational age provided. Continue routine care and follow up unless otherwise noted in visit notes/problem list details Initial Weight: Not Recorded Date -???-???-???-???-?? ?-???-???-???-???- (more content not included)... Normal [facility] Endocrinology Visit Reporton 01-01-2025 Endocrinology Visit Report [facility] [address] [place] [address] OFFICE VISIT Date of Service: 01/01/25 MR#: [id number] Acct: [id number] Name: TASIA ALMAGUER Rep #: [id number] : 1990 Provider: Joy Gar Age/Sex: 34/F Location[place] [facility] [place] Status: Signed Intake Vital Signs 09/25/24 13:59 12/18/24 15:44 01/01/25 09:01 Height 5 ft 7 in 5 ft 7 in 5 ft 7 in Weight: 277 lb 8 oz BMI 43.4 BP 128/84 H Blood Pressure Location Rt brachial Position Sitting Pulse 104 H Pulse Source Monitor Pulse Oximetry (%) 98 Oxygen Delivery Method room air Intake Visit Reasons: 3 M FU Chief Complaint: Diabetes in Is patient in pain?: No Allergies No Known Allergies Allergy (Verified 01/01/25 09:05) Medications ???Medication ???Instructions ???Recorded ???Confirmed ???Type multivitamin no.47-iron fum 27 1 cap PO DAILY Check with primary 11/05/20 01/01/25 History mg-folate no.1 1 mg-dha 300 mg doctor capsule (PNV-DHA) sertraline 50 mg tablet (Zoloft) 50 mg PO DAILY Check with primary 11/05/20 01/01/25 History doctor metformin 500 mg tablet 500 mg PO BID Check with primary 0 09/08/24 01/01/25 History doctor blood-glucose sensor (FreeStyle #6 ea 09/25/24 01/01/25 Rx Vamsi 3 Plus Sensor device) pen needle, diabetic 32 gauge x #150 ea 09/25/24 01/01/25 Rx 5/32 (BD Ultra-Fine Kiah Pen Needle) labetalol 200 mg tablet 200 mg PO TID 30 days #90 tabs 01/01/25 Rx insulin glargine 100 unit/mL (3 90 unit (0.9 mL) subcut DAILY #81 11/13/24 01/01/25 Rx mL) subcutaneous pen (Lantus mL Solostar U-100 Insulin) insulin lispro 100 unit/mL 30 unit (0.3 mL) subcut TID #30 mL 11/20/24 01/01/25 Rx subcutaneous pen Patient : Yes (22 weeks) [facility] Medical History (Updated 01/01/25 @ 10:[address] 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 occupational exposures/hazards: No pets and animals: No history of recent travel: No sexually active: Yes Smoking Status: Never smoker second hand exposure: No alcohol intake: never substance use type: does not use diet: diabetic well-balanced diet: daily or most days caffeine: No eating out: rarely or never during the past year weight has: remained stable what type of physical activity do you participate in: walking frequency: 3-4 times per week duration: 15-30 minutes/day geoffrey/samaritan: None seatbelt use: always do you feel safe at home: Yes additional social history: : Slade Madden Female Reproductive History Menstrual Ab spontaneous: 0 HPI HPI Chief Complaint: Diabetes in Details: TASIA ALMAGUER, is a 34 F who presents to the office today for follow up. A1C is 5.1% She is taking Lantus 85 units and Lispro 30 units with meals and metformin. She was on metformin only prior to . Weight is stable. Blood pressure is controlled. ROS Const Constitutional: No fatigue, weight change or change in appetite Eyes Eyes: No change in vision ENT ENT: No dizziness/vertigo or difficulty swallowing Cardio Cardiology: No chest pain at rest, chest pain with exertion, shortness of breath or palpitations Musc Musculoskeletal: No abnormal gait, joint pain, numbness or tingling Neuro Neurology: No abnormal gait, memory loss, numbness or tingling Psych Psychiatric: No change in appetite, No memory loss and No Thoughts of harming yourself/Others Resp Respiratory: No cough, chest congestion or shortness of breath Gastro GI: No abdominal pain, constipation, diarrhea or difficulty swallowing Genitourinary-Femal e: No burning urination Skin Skin: No itchy eyes or wounds Endo Endocrine: No fatigue or weight change Aller/Imm Allergy/Immunologic : No itchy eyes Exam Const General: cooperative, healthy appearing, comfortable, no acute distress, well developed and not cushingoid Nutritional Appearance: well nourished Orientation: alert, awake and oriented x3 HENMT Head: normal to inspection Ears: hearing sharlene (more content not included)... Normal [facility] Laboratory - Hematology and Cell countsOrdered By: Theodore Dunne on 01-01-2025 HbA1c (Bld) [Mass fraction] 5.1 % 4.2-6.3 [facility] Laboratory - Chemistry and C hemistry - challengeOrdered By: Magalys Mclaughlin on 12-18-2024 Glucose Ql (U) Negative [facility] Laboratory - UrinalysisOrder ed By: Magalys Mclaughlin on 12-18-2024 Protein Ql (U) Trace [facility] Tank [facility] Office Visit Reporton 12-18-2024 Tank Builder Office Visit Report [facility], [address] [place] [address] OFFICE VISIT Date of Service: 12/18/24 MR#: [id number] Acct: [id number] Name: TASIA ALMAGUER Rep #: [id number] : 1990 Provider: Dr. Magalys Ramirez, Age/Sex: 34/F [place] [facility] [place]: Signed Intake Vital Signs 10/23/24 14:32 11/20/24 09:28 12/18/24 15:43 12/18/24 15:44 Height 5 ft 7 in 5 ft 7 in 5 ft 7 in 5 ft 7 in Weight: 279 lb 4 oz BMI 43.7 BP 122/82 H Intake Visit Reasons: 20wk ob Director Of Sustainability Programs Required: No Is patient in pain?: No Allergies No Known Allergies Allergy (Verified 12/18/24 15:41) Medications ???Medication ???Instructions ???Recorded ???Confirmed ???Type multivitamin no.47-iron fum 27 1 cap PO DAILY Check with primary 11/05/20 12/18/24 History mg-folate no.1 1 mg-dha 300 mg doctor capsule (PNV-DHA) sertraline 50 mg tablet (Zoloft) 50 mg PO DAILY Check with primary 11/05/20 12/18/24 History doctor metformin 500 mg tablet 500 mg PO BID Check with primary 0 09/08/24 12/18/24 History doctor blood-glucose sensor (FreeStyle #6 ea 09/25/24 12/18/24 Rx Vamsi 3 Plus Sensor device) pen needle, diabetic 32 gauge x #150 ea 09/25/24 12/18/24 Rx 5/32 (BD Ultra-Fine Kiah Pen Needle) labetalol 200 mg tablet 200 mg PO TID 30 days #90 tabs 12/18/24 Rx insulin glargine 100 unit/mL (3 90 unit (0.9 mL) subcut DAILY #81 11/13/24 12/18/24 Rx mL) subcutaneous pen (Lantus mL Solostar U-100 Insulin) insulin lispro 100 unit/mL 30 unit (0.3 mL) subcut TID #30 mL 11/20/24 12/18/24 Rx subcutaneous pen Last Menstrual Period: 07/25/24 Zika: Zika virus screening: Negative : No [facility] Medical History (Updated 12/18/24 @ 16:[address] 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 occupational exposures/hazards: No pets and animals: No history of recent travel: No sexually active: Yes Smoking Status: Never smoker second hand exposure: No alcohol intake: never substance use type: does not use diet: diabetic well-balanced diet: daily or most days caffeine: No eating out: rarely or never during the past year weight has: remained stable what type of physical activity do you participate in: walking frequency: 3-4 times per week duration: 15-30 minutes/day geoffrey/samaritan: None seatbelt use: always do you feel safe at home: Yes additional social history: : June [facility] Michael Madden History 2 Elective abortions Hx Para 1 Spontaneous abortions 0 Hx # Term Pregnancies Ectopic pregnancies Hx # Pregnancies Multiple births # of living children 1 Past Pregnancies Del. Date Name GA/Weeks Outcome Route Bth Weight Gen Labor Lgth Anesthesia Del Locatn Provider FOB 06/17/21 Ernie 39 live - full term 8lbs 3oz Male epidural [facility] S Joy June Delivery Date: 06/17/21 Last Updated by: Xuan Belcher GDM; mild uterine atony; 1st degree laceration HPI 20wk ob Details: TASIA ALMAGUER is a 34 year old who presents for routine OB visit. OB Visit GIANFRANCO Calculator Estimated Delivery Date Method Current WG Current Estimate 05/01/25 LMP (Certain) 20w 6d Other Estimates 05/03/25 Ultrasound #1 20w 4d Expected Delivery Route/Plan Labor Preferences- CB/BF classes: [] labor support person: [] labor intervention preferences: [] pain management options preferred: [] cut cord/dad catch: [] : [] PP control planned: [] discussed possible routes of delivery and associated risks: [] special requests: [] Specific Issue/Plans Covid status: [] Flu vaccine: [] Tdap vaccine: [] Rhogam: [] LARC form signed: [] Problem list reviewed and updated with the most current plan of care details and appropriate orders placed. Relevant counseling for the gestational age provided. Continue routine care and follow up unless otherwise noted in visit notes/problem list details Ini (more content not included)... [facility] L3410.9992on 11-23-2024 [facility] [place] Comment on above: Order Comment: [id number] 1 msAFP SERUM RT Result Comment: TEST RESULTS LIMITS AFP, Serum, Open Spina Bifida Results Report Test Results: *Screen Negative* Gest. Age on Collection Date 16.9 weeks Gestat. Age Based On As provided Recalculations are not recommended when gestational dating by LMP and ultrasound are within 10 days. [age] GIANFRANCO [age] yr Race Weight 210 lbs Insulin Dep Diabetes No Multiple Gestation No AFP Value 16.8 ng/mL AFP MoM 0.55 OSBR [place] 1 [place] [address] Interpretation Interpretation: Screen Negative This result is screen negative for OSB. The AFP MoM calculated is based on the gestational age provided. MS-AFP can identify up to 80% of open neural tube defects. Closed neural tube defects and some open defects may not be detected by this test. This test does not screen for Down Syndrome or Trisomy 18. If screening for Down Syndrome or Trisomy 18 is desired, contact [facility] to discuss available options. The [employer] [employer] recommends amniocentesis be offered to women age 35 and older. Comment: Donna Berry, Ph.D., [facility] Director References: Available Upon Request. Multiples Of Median Cutoffs For AFP Elevations Jones 2.5 Black 2.8 IDD 2.0 Twins 4.5 Abbreviation Definitions IDD - Insulin Dep Diabetes OSBR - Open Spina Bifida Risk For further inquiries contact [facility] at [phone]. This test was developed and its performance characteristics determined by [facility]. It has not been cleared or approved by the Food and Drug Administration. TESTING PERFORMED AT [facility]. ORIGINAL REPORT ON FILE IN LAB CONTAINS ADDITIONAL TEST SITE INFORMATION. Performed By: #### L 3410.9992 #### [facility] [address] [place], [address] Laboratory - Chemistry and C hemistry - challengeOrdered By: Tere Xiong on 11-20-2024 Glucose Ql (U) Negative [facility] - UrinalysisOrder ed By: Tere Xiong on 11-20-2024 Protein Ql (U) Negative [facility] Tank Builder Office Visit Reporton 11-20-2024 Tank Builder Office Visit Report [facility] [address], [address] [place] [address] OFFICE VISIT Date of Service: 11/20/24 MR#: [id number] Acct: [id number] Name: TASIA ALMAGUER Rep #: [id number] : 1990 Provider: CLAUDIO Mckinney ams Age/Sex: 34/F [place] [facility] [place]: Signed Intake Vital Signs 09/25/24 08:44 10/23/24 14:32 11/20/24 09:24 11/20/24 09:28 Height 5 ft 7 in 5 ft 7 in 5 ft 7 in 5 ft 7 in Weight: 270 lb BMI 42.3 BP 129/81 H Intake Visit Reasons: 16 wk ob Chief Complaint: no concerns Director Of Sustainability Programs Required: No Is patient in pain?: No Allergies No Known Allergies Allergy (Verified 11/20/24 09:28) Last Menstrual Period: 07/25/24 Zika: Zika virus screening: Negative : No Have you fallen in the past year?: No PFSH PFSH Medical History Type 2 diabetes mellitus affecting in first trimester, antepartum Anxiety Diabetes mellitus History of tetanus, diphtheria, and acellular pertussis booster vaccination (Tdap) Surgical History History of tonsillectomy and adenoidectomy Family History Mother Diabetes type 2 Hypertension Father Hyperlipemia Sister Diabetes type 2 Grandmother Diabetes type 2 Social History adopted: No household members: spouse, children and other details: Has custody of 2 neices housing: house number of children: 1 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 occupational exposures/hazards: No pets and animals: No history of recent travel: No sexually active: Yes Smoking Status: Never smoker second hand exposure: No alcohol intake: never substance use type: does not use diet: diabetic well-balanced diet: daily or most days caffeine: No eating out: rarely or never during the past year weight has: remained stable what type of physical activity do you participate in: walking frequency: 3-4 times per week duration: 15-30 minutes/day geoffrey/samaritan: None seatbelt use: always do you feel safe at home: Yes additional social history: : Slade Madden History 2 Elective abortions Hx Para 1 Spontaneous abortions 0 Hx # Term Pregnancies Ectopic pregnancies Hx # Pregnancies Multiple births # of living children 1 Past Pregnancies Del. Date Name GA/Weeks Outcome Route Bth Weight Gen Labor Lgth Anesthesia Del Locatn Provider FOB 06/17/21 Ernie 39 live - full term 8lbs 3oz Male epidural [facility] Carmelo June Delivery Date: 06/17/21 Last Updated by: Xuan Belcher GDM; mild uterine atony; 1st degree laceration HPI 16 wk ob Details: TASIA ALMAGUER is a 34 year old who presents for routine OB visit. OB Visit GIANFRANCO Calculator Estimated Delivery Date Method Current WG Current Estimate 05/01/25 LMP (Certain) 16w 6d Other Estimates 05/03/25 Ultrasound #1 16w 4d Expected Delivery Route/Plan Labor Preferences- CB/BF classes: [] labor support person: [] labor intervention preferences: [] pain management options preferred: [] cut cord/dad catch: [] : [] PP control planned: [] discussed possible routes of delivery and associated risks: [] special requests: [] Specific Issue/Plans Covid status: [] Flu vaccine: [] Tdap vaccine: [] Rhogam: [] LARC form signed: [] Problem list reviewed and updated with the most current plan of care details and appropriate orders placed. Relevant counseling for the gestational age provided. Continue routine care and follow up unless otherwise noted in visit notes/problem list details Initial Weight: Not Recorded Date -???-???-???-???-?? ?-???-???-???-???-? ??-???-???- EGA Weight BP Urine Prot -???-???-???-???-?? ?-???-???-???-???-? ??-???-???- Glucose FHR FuHt Pres Dilation -???-???-???-???-?? ?-???-???-???-???-? ??-???-???- Effaced St Visit Note 09/25/24 -???-???-???-???-?? ?-???-???-???-???-? ??-???-???- 8w 6d 260 lb 2 oz 146/93 -???-???-???-???-?? ?-???-???-???-???-? ??-???-???- 186 -???-???-???-???-?? ?-???-???-???-???-? ??-???-???- JV- CRL cons istent with LMP. Declines NIPT. has DM and htn. starting labetalol now. will see Dr. Dunne this week. 10/23/24 -???-???-???-???-?? ?-???-???-???-???-? ??-???-???- 12w 6d 266 lb 6 oz 141/92 Negative -???-???-???-???-?? ?-???-???-???-???-? ??-???-???- Negative -???-???-???-???-?? ?-???-???-???-???-? ??-???-???- JV- mo vement seen on ultrasound but due to obesity and extreme movement of the fetus, unable to get the heart tones. Increasing labet (more content not included)... Normal [facility] - Chemistry and C hemistry - challengeOrdered By: Magalys Mclaughlin on 10-23-2024 Glucose Ql (U) Negative [facility] - UrinalysisOrder ed By: Magalys Mclaughlin on 10-23-2024 Protein Ql (U) Negative [facility] Office Visit Reporton 10-23-2024 [facility] Office Visit Report [facility] [address], [address] [place] [address] OFFICE VISIT Date of Service: 10/23/24 MR#: [id number] Acct: [id number] Name: TRIPPTASIA ABDULLAHI Rep #: [id number] : 1990 Provider: Dr. Magalys Ramirez DO Age/Sex: 34/F [place] [facility] [place] Status: Signed Intake Vital Signs 09/27/23 09:56 09/25/24 13:59 10/23/24 14:32 10/23/24 14:32 Height 5 ft 7 in 5 ft 7 in 5 ft 7 in 5 ft 7 in Weight: 266 lb 6 oz BMI 41.7 BP 141/92 H Intake Visit Reasons: 12wk OB Director Of Sustainability Programs Required: No Is patient in pain?: No Allergies No Known Allergies Allergy (Verified 10/23/24 14:32) Medications ???Medication ???Instructions ???Recorded ???Confirmed ???Type multivitamin no.47-iron fum 27 1 cap PO DAILY Check with primary 11/05/20 10/23/24 History mg-folate no.1 1 mg-dha 300 mg doctor capsule (PNV-DHA) sertraline 50 mg tablet (Zoloft) 50 mg PO DAILY Check with primary 11/05/20 10/23/24 History doctor metformin 500 mg tablet 500 mg PO BID Check with primary 0 09/08/24 10/23/24 History doctor blood-glucose sensor (FreeStyle #6 ea 09/25/24 10/23/24 Rx Vamsi 3 Plus Sensor device) pen needle, diabetic 32 gauge x #150 ea 09/25/24 10/23/24 Rx 5/32 (BD Ultra-Fine Kiah Pen Needle) insulin glargine 100 unit/mL (3 40 unit (0.4 mL) subcut QDAY #36 m L 09/28/24 10/23/24 Rx mL) subcutaneous pen (Lantus Solostar U-100 Insulin) insulin lispro 100 unit/mL 13 unit (0.13 mL) subcut TID #15 m L 10/23/24 10/23/24 Rx subcutaneous pen labetalol 200 mg tablet 200 mg PO TID 30 days #90 tabs 10/23/24 Rx Last Menstrual Period: 07/25/24 Zika: Zika virus screening: Negative : No PFSH PFSH Medical History Type 2 diabetes mellitus affecting in first trimester, antepartum Anxiety Diabetes mellitus History of tetanus, diphtheria, and acellular pertussis booster vaccination (Tdap) Surgical History History of tonsillectomy and adenoidectomy Family History Mother Diabetes type 2 Hypertension Father Hyperlipemia Sister Diabetes type 2 Grandmother Diabetes type 2 Social History adopted: No household members: spouse, children and other details: Has custody of 2 neamisha housing: house number of children: 1 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 occupational exposures/hazards: No pets and animals: No history of recent travel: No sexually active: Yes Smoking Status: Never smoker second hand exposure: No alcohol intake: never substance use type: does not use diet: diabetic well-balanced diet: daily or most days caffeine: No eating out: rarely or never during the past year weight has: remained stable what type of physical activity do you participate in: walking frequency: 3-4 times per week duration: 15-30 minutes/day geoffrey/samaritan: None seatbelt use: always do you feel safe at home: Yes additional social history: : Slade Madden History 2 Elective abortions Hx Para 1 Spontaneous abortions 0 Hx # Term Pregnancies Ectopic pregnancies Hx # Pregnancies Multiple births # of living children 1 Past Pregnancies Del. Date Name GA/Weeks Outcome Route Bth [facility] Ernie 39 live - full term 8lbs 3oz Male epidural [facility] Carmelo June Delivery Date: 06/17/21 Last Updated by: Xuan Belcher GDM; mild uterine atony; 1st degree laceration HPI 12wk OB Details: TASIA ALMAGUER is a 34 year old who presents for routine OB visit. OB Visit GIANFRANCO Calculator Estimated Delivery Date Method Current WG Current Estimate 05/01/25 LMP (Certain) 12w 6d Other Estimates 05/03/25 Ultrasound #1 12w 4d Expected Delivery Route/Plan Labor Preferences- CB/BF classes: [] labor support person: [] labor intervention preferences: [] pain management options preferred: [] cut cord/dad catch: [] : [] PP control planned: [] discussed possible routes of delivery and associated risks: [] special requests: [] Specific Issue/Plans Covid status: [] Flu vaccine: [] Tdap vaccine: [] Rhogam: [] LARC form signed: [] Problem list reviewed and updated with the most current plan of care details and appropriate orders placed. Relevant counseling for the gestational age provided. Continue routine care and follow up unless otherwise noted in visit notes/problem list details Initial Weig (more content not included)... Normal [facility] Chlamydia/GC NENITA aptimaon CHLAMY,NUC ACID Negative Normal Negative [facility] Comment on above: Performed By: #### M 100.2200, L501.0900, L7000.1800 ####[facility] [address] [place], [place], [phone] GC BY NUC ACID Negative Normal Negative [facility] Comment on above: Result Comment: Perf ormed at: =G - [facility] [address] [id number] It Instructor: Erna Farr MD, Phone: [phone] Performed By: #### M 100.2200, L501.0900, L7000.1800 ####[facility] [address] [place], [address] Urine Cultureon 09-27-2024 URC #1,2 Below infection level. Streptococcus agalactiae (B) Ragland Count <1000 Mixed Gram Positive Organisms Mixed Gram Positive Organisms MIXC Mixed contaminants. Submit a new specimen if indicated. [facility] Comment on above: Performed By: #### M 100.2200, L501.0900, L7000.1800 ####[facility] [address] [place], [address] Comprehensive Metabolic Prof ilon 09-26-2024 Albumin [Mass/Vol] 3.3 g/dL Normal 3.2-5.0 [facility] Comment on above: Performed By: #### L 501.9985, L3890.6300, L3890.6100, L500.4050, L3890.6005, L509.8000, L501.9520, L100.0100, L509.4005, BTS ####[facility] [address] [place], [place], [phone] Albumin/Globulin [Mass ratio] 0.8 {ratio} Low 0.9-2.4 [facility] Comment on above: Performed By: #### L 501.9985, L3890.6300, L3890.6100, L500.4050, L3890.6005, L509.8000, L501.9520, L100.0100, L509.4005, BTS ####[facility] [address] [place], [place], [phone] ALK P 108 U/L Normal 45-117 [facility] Comment on above: Performed By: #### L 501.9985, L3890.6300, L3890.6100, L500.4050, L3890.6005, L509.8000, L501.9520, L100.0100, L509.4005, BTS ####[facility] [address] [place], [place], [phone] ALT [Catalytic activity/Vol] 19 U/L Normal 13-56 [facility] Comment on above: Performed By: #### L 501.9985, L3890.6300, L3890.6100, L500.4050, L3890.6005, L509.8000, L501.9520, L100.0100, L509.4005, BTS ####[facility] [address] [place], [place], [phone] AST [Catalytic activity/Vol] 10 U/L Low 15-37 [facility] Comment on above: Performed By: #### L 501.9985, L3890.6300, L3890.6100, L500.4050, L3890.6005, L509.8000, L501.9520, L100.0100, L509.4005, BTS ####[facility] [address] [place], [address](602) Bilirubin [Mass/Vol] 0.50 mg/dL Normal 0.20-1.00 [facility] Comment on above: Result Comment: For patients on eltrombopag therapy, use of Dimension [place] TBIL is not recommended. Performed By: #### L 501.9985, L3890.6300, L3890.6100, L500.4050, L3890.6005, L509.8000, L501.9520, L100.0100, L509.4005, BTS ####[facility] [address] [place], [place], [phone] BUN/CRE 12.0 RATIO Normal 10-20 [facility] Comment on above: Performed By: #### L 501.9985, L3890.6300, L3890.6100, L500.4050, L3890.6005, L509.8000, L501.9520, L100.0100, L509.4005, BTS ####[facility] [address] [place], [place], [phone] CA,Total 9.5 mg/dL Normal 8.5-10.1 [facility] Comment on above: Performed By: #### L 501.9985, L3890.6300, L3890.6100, L500.4050, L3890.6005, L509.8000, L501.9520, L100.0100, L509.4005, BTS ####[facility] [address] [place], [address] Chloride [Moles/Vol] 104 mmol/L Normal 98-107 [facility] Comment on above: Performed By: #### L 501.9985, L3890.6300, L3890.6100, L500.4050, L3890.6005, L509.8000, L501.9520, L100.0100, L509.4005, BTS ####[facility] [address] [place], [place], [phone]) CO2 [Moles/Vol] 24.0 mmol/L Normal 21.0-32.0 [facility] Comment on above: Performed By: #### L 501.9985, L3890.6300, L3890.6100, L500.4050, L3890.6005, L509.8000, L501.9520, L100.0100, L509.4005, BTS ####[facility] [address] [place], [address] Creatinine [Mass/Vol] 0.66 mg/dL Normal 0.55-1.02 [facility] Comment on above: Result Comment: The validity of the calculated GFR GFRAA in patients over 70 years has not been determined. Clinical correlation is essential. Performed By: #### L 501.9985, L3890.6300, L3890.6100, L500.4050, L3890.6005, L509.8000, L501.9520, L100.0100, L509.4005, BTS ####[facility] [address] [place], [place], [phone] EST GFR - AA 132 mL/min Normal >60 [facility] Comment on above: Result Comment: Afri can Malian GFR Calc Performed By: #### L 501.9985, L3890.6300, L3890.6100, L500.4050, L3890.6005, L509.8000, L501.9520, L100.0100, L509.4005, BTS ####[facility] [address] [place], [place], [phone](794) GAP 8 Normal 5-15 [facility] Comment on above: Performed By: #### L 501.9985, L3890.6300, L3890.6100, L500.4050, L3890.6005, L509.8000, L501.9520, L100.0100, L509.4005, BTS ####[facility] [address] [place], [address] GFR/1.73 sq M.predicted among non-blacks MDRD (S/P/Bld) [Vol rate/Area] 109 mL/min/{1.73_m2} Normal >60 [facility] Comment on above: Result Comment: Non- GFR Calc Performed By: #### L 501.9985, L3890.6300, L3890.6100, L500.4050, L3890.6005, L509.8000, L501.9520, L100.0100, L509.4005, BTS ####[facility] [address] [place], [place], [phone](992) Globulin (S) [Mass/Vol] 4.3 g/dL High 2.2-4.2 [facility] Comment on above: Performed By: #### L 501.9985, L3890.6300, L3890.6100, L500.4050, L3890.6005, L509.8000, L501.9520, L100.0100, L509.4005, BTS ####[facility] [address] [place], [address] Glucose [Mass/Vol] 233 mg/dL High 74-106 [facility] Comment on above: Result Comment: Gluc ose result greater than or equal to 200 mg/dL suggests DIABETES MELLITUS per A.D.A. criteria. Performed By: #### L 501.9985, L3890.6300, L3890.6100, L500.4050, L3890.6005, L509.8000, L501.9520, L100.0100, L509.4005, BTS ####[facility] [address] [place], [address] Potassium [Moles/Vol] 4.0 mmol/L Normal 3.5-5.1 [facility] Comment on above: Performed By: #### L 501.9985, L3890.6300, L3890.6100, L500.4050, L3890.6005, L509.8000, L501.9520, L100.0100, L509.4005, BTS ####[facility] [address] [place], [address] Sodium [Moles/Vol] 136 mmol/L Normal 136-145 [facility] Comment on above: Performed By: #### L 501.9985, L3890.6300, L3890.6100, L500.4050, L3890.6005, L509.8000, L501.9520, L100.0100, L509.4005, BTS ####[facility] [address] [place], [place], [phone](805) T PROT 7.6 g/dL Normal 6.4-8.2 [facility] Comment on above: Performed By: #### L 501.9985, L3890.6300, L3890.6100, L500.4050, L3890.6005, L509.8000, L501.9520, L100.0100, L509.4005, BTS ####[facility] [address] [place], [place], [phone](785) Urea nitrogen [Mass/Vol] 8 mg/dL Normal 7-18 [facility] Comment on above: Performed By: #### L 501.9985, L3890.6300, L3890.6100, L500.4050, L3890.6005, L509.8000, L501.9520, L100.0100, L509.4005, BTS ####[facility] [address] [place], [place], [phone](317) Thyroid Stim Hormone (TSH)on 09-26-2024 TSH 0.942 uIU/mL Normal 0.358-3.740 [facility] Comment on above: Performed By: #### L 501.9985, L3890.6300, L3890.6100, L500.4050, L3890.6005, L509.8000, L501.9520, L100.0100, L509.4005, BTS ####[facility] [address] [place], [address] Absolute lymphocyte countOrd ered By: Magalys Mclaughlin on 09-25-2024 Lymphocytes Auto (Unsp spec) [#/Vol] 2.79 10*3/uL 0.83-4.51 [facility] Absolute neutrophil countOrd ered By: Magalys Mclaughlin on 09-25-2024 Neutrophils (Bld) [#/Vol] 7.4 10*3/uL 2.0-7.7 [facility] Albumin to globulin ratioOrd ered By: Magalys Mclaughlin on 09-25-2024 Albumin/Globulin [Mass ratio] 0.8 {ratio} Low 0.9-2.4 [facility] Automated lymphocyte count a s percentage of total leukocytesOrdered By: Magalys Mclaughlin on 09-25-2024 Lymphocytes/100 WBC Auto (Unsp spec) 24.6 % 19-41 [facility] Basophil percentageOrdered B y: Magalys Mclaughlin on 09-25-2024 Basophils/100 WBC (Bld) 0.4 % 0-1 [facility] Bilirubin, totalOrdered By: Magalys Mclaughlin on 09-25-2024 Bilirubin [Mass/Vol] 0.50 mg/dL 0.20-1.00 [facility] Comment on above: For patients on eltr ombopag therapy, use of Dimension [place] TBIL is not recommended. Blood urea nitrogen (BUN)/cr eatinine ratioOrdered By: Magalys Mclaughlin on 09-25-2024 Urea nitrogen/Creatinine [Mass ratio] 12.0 mg/mg 10-20 [facility] C. trachomatis rRNA NENITA+prob e Ql (Unsp spec)Ordered By: Magalys Mclaughlin on 09-25-2024 Chlamydia DNA (NENITA) Negative Negative [facility] CBC W/Diff, Automatedon 02-2 Absolute Lymph 2.79 X10 3/uL Normal 0.83-4.51 [facility] Comment on above: Performed By: #### L 501.9985, L3890.6300, L3890.6100, L500.4050, L3890.6005, L509.8000, L501.9520, L100.0100, L509.4005, BTS ####[facility] [address] [place], [address] Absolute Neut 7.4 X10 3/uL Normal 2.0-7.7 [facility] Comment on above: Performed By: #### L 501.9985, L3890.6300, L3890.6100, L500.4050, L3890.6005, L509.8000, L501.9520, L100.0100, L509.4005, BTS ####[facility] [address] [place], [address] Basophils/100 WBC (Bld) 0.4 % Normal 0-1 [facility] Comment on above: Performed By: #### L 501.9985, L3890.6300, L3890.6100, L500.4050, L3890.6005, L509.8000, L501.9520, L100.0100, L509.4005, BTS ####[facility] [address] [place], [address] Eosinophils/100 WBC (Bld) 4.1 % Normal 0-5 [facility] Comment on above: Performed By: #### L 501.9985, L3890.6300, L3890.6100, L500.4050, L3890.6005, L509.8000, L501.9520, L100.0100, L509.4005, BTS ####[facility] [address] [place], [address] Erythrocyte distribution width (RBC) [Ratio] 12.3 % Normal 11.6-14.6 [facility] Comment on above: Performed By: #### L 501.9985, L3890.6300, L3890.6100, L500.4050, L3890.6005, L509.8000, L501.9520, L100.0100, L509.4005, BTS ####[facility] [address] [place], [address] Hematocrit (Bld) [Volume fraction] 42.6 % Normal 37-47 [facility] Comment on above: Performed By: #### L 501.9985, L3890.6300, L3890.6100, L500.4050, L3890.6005, L509.8000, L501.9520, L100.0100, L509.4005, BTS ####[facility] [address] [place], [address] Hemoglobin (Bld) [Mass/Vol] 14.5 g/dL Normal 12.0-15.0 [facility] Comment on above: Performed By: #### L 501.9985, L3890.6300, L3890.6100, L500.4050, L3890.6005, L509.8000, L501.9520, L100.0100, L509.4005, BTS ####[facility] [address] [place], [address] IG% 0.500 Normal 0.0-0.9 [facility] Comment on above: Result Comment: IG% - Immature Granulocytes (promyelocytes, myelocytes and metamyelocytes) > 1% indicates that a LEFT SHIFT is Present. Performed By: #### L 501.9985, L3890.6300, L3890.6100, L500.4050, L3890.6005, L509.8000, L501.9520, L100.0100, L509.4005, BTS ####[facility] [address] [place], [address] Lymphocytes/100 WBC (Bld) 24.6 % Normal 19-41 [facility] Comment on above: Performed By: #### L 501.9985, L3890.6300, L3890.6100, L500.4050, L3890.6005, L509.8000, L501.9520, L100.0100, L509.4005, BTS ####[facility] [address] [place], [address] MCH (RBC) [Entitic mass] 30.0 pg Normal 27.0-32.0 [facility] Comment on above: Performed By: #### L 501.9985, L3890.6300, L3890.6100, L500.4050, L3890.6005, L509.8000, L501.9520, L100.0100, L509.4005, BTS ####[facility] [address] [place], [address] MCHC (RBC) [Mass/Vol] 34.0 g/dL Normal 32-36 [facility] Comment on above: Performed By: #### L 501.9985, L3890.6300, L3890.6100, L500.4050, L3890.6005, L509.8000, L501.9520, L100.0100, L509.4005, BTS ####[facility] [address] [place], [address] MCV (RBC) [Entitic vol] 88.2 fL Normal 81-99 [facility] Comment on above: Performed By: #### L 501.9985, L3890.6300, L3890.6100, L500.4050, L3890.6005, L509.8000, L501.9520, L100.0100, L509.4005, BTS ####[facility] [address] [place], [address] Monocytes/100 WBC (Bld) 4.9 % Normal 0-10 [facility] Comment on above: Performed By: #### L 501.9985, L3890.6300, L3890.6100, L500.4050, L3890.6005, L509.8000, L501.9520, L100.0100, L509.4005, BTS ####[facility] [address] [place], [place], [phone] Neutrophils/100 WBC (Bld) 65.5 % Normal 47-70 [facility] Comment on above: Performed By: #### L 501.9985, L3890.6300, L3890.6100, L500.4050, L3890.6005, L509.8000, L501.9520, L100.0100, L509.4005, BTS ####[facility] [address] [facility] [place], [address](727) Nucleated RBC (Bld) [#/Vol] 0 10*3/uL Normal 0-5 [facility] Comment on above: Performed By: #### L 501.9985, L3890.6300, L3890.6100, L500.4050, L3890.6005, L509.8000, L501.9520, L100.0100, L509.4005, BTS ####[facility] [address] [facility] [place], [place], [phone](752) Platelet mean volume (Bld) [Entitic vol] 9.7 fL Normal 6.2-12.0 [facility] Comment on above: Performed By: #### L 501.9985, L3890.6300, L3890.6100, L500.4050, L3890.6005, L509.8000, L501.9520, L100.0100, L509.4005, BTS ####[facility] [address] [place], [address] Platelets (Bld) [#/Vol] 307 10*3/uL Normal 150-450 [facility] Comment on above: Performed By: #### L 501.9985, L3890.6300, L3890.6100, L500.4050, L3890.6005, L509.8000, L501.9520, L100.0100, L509.4005, BTS ####[facility] [address] [place], [address] RBC (Bld) [#/Vol] 4.83 10*6/uL Normal 4.2-5.4 [facility] Comment on above: Performed By: #### L 501.9985, L3890.6300, L3890.6100, L500.4050, L3890.6005, L509.8000, L501.9520, L100.0100, L509.4005, BTS ####[facility] [address] [place], [address] RDW SD 39.9 fl Normal 35.1-43.9 [facility] Comment on above: Performed By: #### L 501.9985, L3890.6300, L3890.6100, L500.4050, L3890.6005, L509.8000, L501.9520, L100.0100, L509.4005, BTS ####[facility] [address] [place], [address] WBC (Bld) [#/Vol] 11.3 10*3/uL High 4.4-11.0 [facility] Comment on above: Performed By: #### L 501.9985, L3890.6300, L3890.6100, L500.4050, L3890.6005, L509.8000, L501.9520, L100.0100, L509.4005, BTS ####[facility] [address] [place], [address] Carbon dioxide measurementOr dered By: Magalys Mclaughlin on 09-25-2024 CO2 [Moles/Vol] 24.0 mmol/L 21.0-32.0 [facility] Chlamydia trachomatis rRNA d etection by probe and target amplification methodOrdered By: Magalys Mclaughlin on 09-25-2024 C. trachomatis rRNA NENITA+probe Ql (Unsp spec) Negative Negative [facility] Chloride measurementOrdered By: Magalys Mclaughlin on 09-25-2024 Chloride [Moles/Vol] 104 mmol/L 98-107 [facility] Endocrinology Visit Reporton 09-25-2024 Endocrinology Visit Report [facility] [address] [place] [address] OFFICE VISIT Date of Service: 09/25/24 MR#: [id number] Acct: [id number] Name: TASIA ALMAGUER Rep #: [id number] : 1990 Provider: Joy Gar Age/Sex: 34/F [place] [facility] [place]: [place] Intake Vital Signs 09/27/23 09:56 09/25/24 08:44 09/25/24 13:59 Height 5 ft 7 in 5 ft 7 in 5 ft 7 in Weight: 260 lb 4 oz BMI 40.7 BP 156/105 H Blood Pressure Location Rt brachial Position Sitting Pulse 119 H Pulse Source Monitor Pulse Oximetry (%) 98 Oxygen Delivery Method room air Intake Visit Reasons: Gestational Diabetes Chief Complaint: Diabetes in Allergies No Known Allergies Allergy (Verified 09/25/24 14:01) Medications ???Medication ???Instructions ???Recorded ???Confirmed ???Type multivitamin no.47-iron fum 27 1 cap PO DAILY Check with primary 11/05/20 09/25/24 History mg-folate no.1 1 mg-dha 300 mg doctor capsule (PNV-DHA) sertraline 50 mg tablet (Zoloft) 50 mg PO DAILY Check with primary 11/05/20 09/25/24 History doctor metformin 500 mg tablet 500 mg PO BID Check with primary 0 09/08/24 09/25/24 History doctor Tresiba FlexTouch U-200 200 40 unit (0.2 mL) subcut QDAY #12 m L 09/25/24 09/25/24 Rx unit/mL (3 mL) subcutaneous pen (insulin degludec) blood-glucose sensor (FreeStyle #6 ea 09/25/24 09/25/24 Rx Vamsi 3 Plus Sensor device) insulin lispro 100 unit/mL 15 unit (0.15 mL) subcut TID #15 m L 09/25/24 09/25/24 Rx subcutaneous pen labetalol 200 mg tablet 200 mg PO BID 30 days #60 tabs 09/25/24 Rx pen needle, diabetic 32 gauge x #150 ea 09/25/24 09/25/24 Rx 5/32 (BD Ultra-Fine Kiah Pen Needle) [facility] Medical History (Updated 09/25/24 @ 14:[address] 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 occupational exposures/hazards: No pets and animals: No history of recent travel: No sexually active: Yes Smoking Status: Never smoker second hand exposure: No alcohol intake: never substance use type: does not use diet: diabetic well-balanced diet: daily or most days caffeine: No eating out: rarely or never during the past year weight has: remained stable what type of physical activity do you participate in: walking frequency: 3-4 times per week duration: 15-30 minutes/day geoffrey/samaritan: None seatbelt use: always do you feel safe at home: Yes additional social history: : [facility] Female Reproductive History Menstrual Ab spontaneous: 0 HPI HPI Chief Complaint: Diabetes in Details: TASIA ALMAGUER, is a 34 F who presents to the office today for evaluation and management of type 2 diabetes in . I saw her in 2020 during her last . She has a healthy son. She forgot that she should have had her A1C tested prior to conception. A1C is 9.9% She is currently taking metformin 500 bid. She is testing 4 times per day. Blood sugars are running 180-220. She has some smell aversion, but is otherwise doing well. ROS Const Constitutional: No fatigue, weight change or change in appetite Eyes Eyes: No change in vision ENT ENT: No dizziness/vertigo or difficulty swallowing Cardio Cardiology: No chest pain at rest, chest pain with exertion, shortness of breath or palpitations Musc Musculoskeletal: No abnormal gait, joint pain, numbness or tingling Neuro Neurology: No abnormal gait, memory loss, numbness or tingling Psych Psychiatric: No change in appetite, No memory loss and No Thoughts of harming yourself/Others Resp Respiratory: No cough, chest congestion or shortness of breath Gastro GI: No abdominal pain, constipation, diarrhea or difficulty swallowing Genitourinary-Femal e: No burning urination Skin Skin: No itchy eyes or wounds Endo Endocrine: No fatigue or weight change Aller/Imm Allergy/Immunologic : No itchy eyes Exam Const General: cooperative, healthy appearing, comfortable, (more content not included)... Normal [facility] Eosinophil percentageOrdered By: Magalys Mclaughlin on 09-25-2024 Eosinophils/100 WBC (Bld) 4.1 % 0-5 [facility] Erythrocyte distribution wid th ratioOrdered By: Magalys Mclaughlin on 09-25-2024 Erythrocyte distribution width (RBC) [Ratio] 12.3 % 11.6-14.6 [facility] Erythrocyte distribution wid th standard deviationOrdered By: Magalys Mclaughlin on 09-25-2024 Erythrocyte distribution width (RBC) [Entitic vol] 39.9 fL 35.1-43.9 [facility] Erythrocyte distribution width (RBC) [Ratio] 39.9 fl 35.1-43.9 [facility] Estimated glomerular filtrat ion rate (GFR) AmericanOrdered By: Magalys Mclaughlin on 09-25-2024 Estimated GFR (MDRD) Amer 132 mL/min >60 [facility] Comment on above: GFR Calc Glomerular filtration rate ( GFR) estimationOrdered By: Magalys Mclaughlin on 09-25-2024 Estimated GFR (MDRD) Non-Af Amer 109 mL/min >60 [facility] Comment on above: Non- GFR Calc GFR/1.73 sq M.predicted among non-blacks MDRD (S/P/Bld) [Vol rate/Area] 109 mL/min/{1.73_m2} >60 [facility] Comment on above: Non- GFR Calc Glucose measurementOrdered B y: Magalys Mclaughlin on 09-25-2024 Glucose [Mass/Vol] 233 mg/dL High 74-106 [facility] Comment on above: Glucose result great er than or equal to 200 mg/dLsuggests DIABETES MELLITUS per A.D.A. criteria. HIV - WCHon 09-25-2024 HIV Non-Reactive Normal Nonreactive [facility] Comment on above: Order Comment: Reaso n for Exam: Performed By: #### L 501.9985, L3890.6300, L3890.6100, L500.4050, L3890.6005, L509.8000, L501.9520, L100.0100, L509.4005, BTS ####[facility] [address] [place], [place], [id number] HIV 1 and HIV-2 antibody ass ay with HIV-1 p24 antigen detectionOrdered By: Magalys Mclaughlin on 09-25-2024 HIV 1+2 Ab+HIV1 p24 Ag IA Ql Non-Reactive Nonreactive [facility] HIV 1+2 Ab+HIV1 p24 Ag IA Ql Ordered By: Magalys Mclaughlin on 09-25-2024 HIV (1&2) Antibody Non-Reactive Nonreactive [facility] Hematocrit Auto (Bld) [Volum e fraction]Ordered By: Magalys Mclaughlin on 09-25-2024 Hematocrit (Bld) [Volume fraction] 42.6 % 37-47 [facility] Hemoglobin A1con 02-24-2025 HbA1c (Bld) [Mass fraction] 9.9 % High 3.8-5.6 [facility] Comment on above: Result Comment: Norm al < 5.7 % Prediabetic 5.7 - 6.4 % Diabetic >or= 6.5 % Please note range changes. Performed By: #### L 501.9985, L3890.6300, L3890.6100, L500.4050, L3890.6005, L509.8000, L501.9520, L100.0100, L509.4005, BTS ####[facility] [address] [place], [address] Hemoglobin A1c percentageOrd ered By: Magalys Mclaughlin on 09-25-2024 HbA1c (Bld) [Mass fraction] 9.9 % High 3.8-5.6 [facility] Comment on above: Normal < 5.7 % Predi abetic 5.7 - 6.4 % Diabetic >or= 6.5 % Please note range changes. Hemoglobin measurementOrdere d By: Magalys Mclaughlin on 09-25-2024 Hemoglobin (Bld) [Mass/Vol] 14.5 g/dL 12.0-15.0 [facility] Hepatitis B Surface Antigeno n 09-25-2024 HEP B Surf Ag Non-Reactive Normal Nonreactive [facility] Comment on above: Order Comment: Reaso n for Exam: Performed By: #### L 501.9985, L3890.6300, L3890.6100, L500.4050, L3890.6005, L509.8000, L501.9520, L100.0100, L509.4005, BTS ####[facility] [address] [place], [address] Hepatitis B surface antigen detectionOrdered By: Magalys Mclaughlin on 09-25-2024 Hepatitis B Surface Antigen Non-Reactive Nonreactive [facility] Hepatitis C Antibodyon 09-25 Hepatitis C AB Non-Reactive Normal Nonreactive [facility] Comment on above: Order Comment: Reaso n for Exam: Result Comment: Non Reactive: < 0.8 Equivocal: >/= 0.8 to < 1.0 Reactive: >/= 1.0 The CDC requires that a reactive/equivocal HCV antibody result be sent out for confirmation. HCV Quant by PCR testing. Performed By: #### L 501.9985, L3890.6300, L3890.6100, L500.4050, L3890.6005, L509.8000, L501.9520, L100.0100, L509.4005, BTS ####[facility] [address] [place], [address] Hepatitis C virus antibody a ssayOrdered By: Magalys Mclaughlin on 09-25-2024 Hepatitis C Antibody Non-Reactive Nonreactive [facility] Comment on above: Non Reactive: < 0.8 Equivocal: >/= 0.8 to < 1.0 Reactive: >/= 1.0The CDC requires that a reactive/equivocal HCV antibody result be sent out for confirmation. HCV Quant by PCR testing. Immature granulocytes/100 WB C Auto (Bld)Ordered By: Magalys Mclaughlin on 09-25-2024 Immature granulocytes/100 WBC (Bld) 0.500 % 0.0-0.9 [facility] Comment on above: IG% - Immature Granu locytes (promyelocytes, myelocytes and metamyelocytes) > 1% indicates that a LEFT SHIFT is Present. L509.8000on 09-25-2024 Syphilis Abs Non-Reactive Normal [facility] Comment on above: Order Comment: Reaso n for Exam: Performed By: #### L 501.9985, L3890.6300, L3890.6100, L500.4050, L3890.6005, L509.8000, L501.9520, L100.0100, L509.4005, BTS ####[facility] [address] [place], [address] Laboratory - Chemistry and C hemistry - challengeOrdered By: Magalys Mclaughlin on 09-25-2024 AST [Catalytic activity/Vol] 10 U/L Low 15-37 [facility] Lymphocytes Auto (Unsp spec) [#/Vol]Ordered By: Magalys Mclaughlin on 09-25-2024 Lymphocytes (Bld) [#/Vol] 2.79 10*3/uL 0.83-4.51 [facility] Lymphocytes/100 WBC Auto (Un sp spec)Ordered By: Magalys Mclaughlin on 09-25-2024 Lymphocytes/100 WBC (Bld) 24.6 % 19-41 [facility] MCV (mean corpuscular volume ) determinationOrdered By: Magalys Mclaughlin on 09-25-2024 MCV (RBC) [Entitic vol] 88.2 fL 81-99 [facility] Mean corpuscular hemoglobin (MCH) determinationOrdered By: Magalys Mclaughlin on 09-25-2024 MCH (RBC) [Entitic mass] 30.0 pg 27.0-32.0 [facility] Mean corpuscular hemoglobin concentration (MCHC) determinationOrdered By: Magalys Mclaughlin on 09-25-2024 MCHC (RBC) [Mass/Vol] 34.0 g/dL 32-36 [facility] Mean platelet volume determi nationOrdered By: aMgalys Mclaughlin on 09-25-2024 Platelet mean volume (Bld) [Entitic vol] 9.7 fL 6.2-12.0 [facility] Monocyte percentageOrdered B y: Magalys Mclaughlin on 09-25-2024 Monocytes/100 WBC (Bld) 4.9 % 0-10 [facility] Neisseria gonorrhoeae nuclei c acid detection by amplified probe techniqueOrdered By: Magalys Mclaughlin on 09-25-2024 N. gonorrhoeae DNA NENITA+probe Ql (Unsp spec) Negative Negative [facility] Comment on above: Performed at: =[address] [id number] Director: Erna Farr MD, Phone: [phone] Neutrophil percentageOrdered By: Magalys Mclaughlin on 09-25-2024 Neutrophils/100 WBC (Bld) 65.5 % 47-70 [facility] Nucleated red blood cell per centageOrdered By: Magalys Mclaughlin on 09-25-2024 Nucleated RBC/100 WBC (Bld) [Ratio] 0 % 0-5 [facility] Office Visit Reporton 09-25-2024 [facility] Office Visit Report [facility] [address], [address] [place] [address] OFFICE VISIT Date of Service: 09/25/24 MR#: [id number] Acct: [id number] Name: TASIA ALMAGUER Rep #: [id number] : 1990 Provider: Dr. Magalys Ramirez DO Age/Sex: 34/F Location[place] [facility] [place]: Signed Intake Vital Signs 09/27/23 09:56 09/25/24 08:42 09/25/24 08:44 Height 5 ft 7 in 5 ft 7 in 5 ft 7 in Weight: 260 lb 2 oz BMI 40.7 BP 146/93 H Intake Visit Reasons: New OB, LMP 07/25, GIANFRANCO 05/01/25 Director Of Sustainability Programs Required: No Is patient in pain?: No Allergies No Known Allergies Allergy (Verified 09/25/24 08:42) Medications ???Medication ???Instructions ???Recorded ???Confirmed ???Type multivitamin no.47-iron fum 27 1 cap PO DAILY Check with primary 11/05/20 09/25/24 History mg-folate no.1 1 mg-dha 300 mg doctor capsule (PNV-DHA) sertraline 50 mg tablet (Zoloft) 50 mg PO DAILY Check with primary 11/05/20 09/25/24 History doctor metformin 500 mg tablet 500 mg PO BID Check with primary 0 09/08/24 09/25/24 History doctor labetalol 200 mg tablet 200 mg PO BID 30 days #60 tabs 09/25/24 Rx Last Menstrual Period: 07/25/24 Zika: Zika virus screening: Negative : No PFSH PFSH Medical History Anxiety Diabetes mellitus History of tetanus, diphtheria, and acellular pertussis booster vaccination (Tdap) Surgical History History of tonsillectomy and adenoidectomy Family History Mother Diabetes type 2 Hypertension Father Hyperlipemia Sister Diabetes type 2 Grandmother Diabetes type 2 Social History adopted: No household members: spouse, children and other details: Has custody of 2 neices housing: house number of children: 1 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 occupational exposures/hazards: No pets and animals: No history of recent travel: No sexually active: Yes Smoking Status: Never smoker second hand exposure: No alcohol intake: never substance use type: does not use diet: diabetic well-balanced diet: daily or most days caffeine: No eating out: rarely or never during the past year weight has: remained stable what type of physical activity do you participate in: walking frequency: 3-4 times per week duration: 15-30 minutes/day geoffrey/samaritan: None seatbelt use: always do you feel safe at home: Yes additional social history: : Sl[employer] Madden History 2 Elective abortions Hx Para 1 Spontaneous abortions 0 Hx # Term Pregnancies Ectopic pregnancies Hx # Pregnancies Multiple births # of living children 1 Past Pregnancies Del. Date Name GA/Weeks Outcome Route Bth Weight Gen Labor Lgth Anesthesia Del Locatn Provider FOB 06/17/21 Ernie 39 live - full term 8lbs 3oz Male epidural [facility] S June Delivery Date: 06/17/21 Last Updated by: Xuan Belcher GDM; mild uterine atony; 1st degree laceration HPI New OB, LMP 07/25, GIANFRANCO 05/01/25 Details: TASIA ALMAGUER is a 34 year old who presents for New OB visit. OB Visit GIANFRANCO Calculator Estimated Delivery Date Method Current WG Current Estimate 05/01/25 LMP (Certain) 8w 6d Other Estimates 05/03/25 Ultrasound #1 8w 4d Estimated Due Date: 05/01/25 Expected Delivery Route/Plan Labor Preferences- CB/BF classes: [] labor support person: [] labor intervention preferences: [] pain management options preferred: [] cut cord/dad catch: [] : [] PP control planned: [] discussed possible routes of delivery and associated risks: [] special requests: [] Specific Issue/Plans Covid status: [] Flu vaccine: [] Tdap vaccine: [] Rhogam: [] LARC form signed: [] Problem list reviewed and updated with the most current plan of care details and appropriate orders placed. Relevant counseling for the gestational age provided. Continue routine care and follow up unless otherwise noted in visit notes/problem list details Initial Weight: Not Recorded Date -???-???-???-???-?? ?-???-???-???-???-? ??-???-???- EGA Weight BP Urine Prot -???-???-???-???-?? ?-???-???-???-???-? ??-???-???- Glucose FHR FuHt Pres Dilation -???-???-???-???-?? ?-???-???-???-???-? ??-???-???- Effaced St Visit Note 09/25/24 -???-???-???-???-?? ?-???-???-???-???-? ??-???-???- 8w 6d 260 lb 2 oz 146/93 -???-???-???-???-?? ?-???-???-???-???-? ??-???-???- 186 -???-???-???-???-?? ?-???-???-???-???-? ??-???-???- JV- CRL cons istent with LM (more content not included)... Normal [facility] Platelet countOrdered By: Feliciano Mclaughlin on 09-25-2024 Platelets (Bld) [#/Vol] 307 10*3/uL 150-450 [facility] Potassium measurementOrdered By: Magalys Mclaughlin on 09-25-2024 Potassium [Moles/Vol] 4.0 mmol/L 3.5-5.1 [facility] Protein+Creatinine Ratio,Uri neon 09-25-2024 PROT:CRE RATIO 228 mg/g CRE High 0-200 [facility] Comment on above: Performed By: #### M 100.2200, L501.0900, L7000.1800 #### [facility] [address] [place], [address] Protein (U) [Mass/Vol] 10.0 mg/dL Normal <11.9 [facility] Comment on above: Performed By: #### M 100.2200, L501.0900, L7000.1800 #### [facility] [address] [place], [address] UR CREAT 43.80 mg/dL Normal NO RANGE EST. [facility] Comment on above: Performed By: #### M 100.2200, L501.0900, L7000.1800 #### [facility] [address] [place], [address] Protein/Creatinine (U) [Mass ratio]Ordered By: Magalys Mclaughlin on 09-25-2024 Urine Protein/Creatinine Ratio 228 mg/g CRE High 0-200 [facility] RBC Auto (Bld) [#/Vol]Ordere d By: Magalys Mclaughlin on 09-25-2024 RBC (Bld) [#/Vol] 4.83 10*6/uL 4.2-5.4 [facility] Random urine protein measure mentOrdered By: Magalys Mclaughlin on 09-25-2024 Protein (U) [Mass/Vol] 10.0 mg/dL 0.0-11.8 [facility] Rubella IgGon 09-25-2024 Rubella IgG Reactive Normal Nonreactive [facility] Comment on above: Order Comment: Reaso n for Exam: Result Comment: Anti body Results Interpretation of Immune Status Non Reactive Presumed Non-Immune Equivocal Equivocal Reactive Presumed Immune Performed By: #### L 501.9985, L3890.6300, L3890.6100, L500.4050, L3890.6005, L509.8000, L501.9520, L100.0100, L509.4005, BTS ####[facility] [address] [place], [address] Rubella immune status IgGOrd ered By: Magalys Mclaughlin on 09-25-2024 Rubella IgG Antibody Reactive Nonreactive [facility] Comment on above: Antibody Results Int erpretation of Immune Status Non Reactive Presumed Non-Immune Equivocal Equivocal Reactive Presumed Immune Serum Treponema species anti body detectionOrdered By: Magalys Mclaughlin on 09-25-2024 Treponema sp Ab Ql (S) Non-Reactive [facility] Serum anion gap measurementO rdered By: Magalys Mclaughlin on 09-25-2024 Anion gap [Moles/Vol] 8 mmol/L 5-15 [facility] Serum globulin measurementOr dered By: Magalys Mclaughlin on 09-25-2024 Globulin (S) [Mass/Vol] 4.3 g/dL High 2.2-4.2 [facility] Serum or plasma alanine arteaga otransferase (ALT) measurementOrdered By: Magalys Mclaughlin on 09-25-2024 ALT [Catalytic activity/Vol] 19 U/L 13-56 [facility] Serum or plasma albumin lisa urement (mass/volume)Ordered By: Magalys Mclaughlin on 09-25-2024 Albumin [Mass/Vol] 3.3 g/dL 3.2-5.0 [facility] Serum or plasma alkaline ruthie sphatase measurementOrdered By: Magalys Mclaughlin on 09-25-2024 ALP [Catalytic activity/Vol] 108 U/L 45-117 [facility] Serum or plasma calcium lisa urement (mass/volume)Ordered By: Magalys Mclaughlin on 09-25-2024 Calcium [Mass/Vol] 9.5 mg/dL 8.5-10.1 [facility] Serum or plasma creatinine m easurement (mass/volume)Ordered By: Magalys Mclaguhlin on 09-25-2024 Creatinine [Mass/Vol] 0.66 mg/dL 0.55-1.02 [facility] Comment on above: The validity of the calculated GFR & GFRAA in patients over 70 years has not been determined. Clinical correlation is essential. Serum or plasma thyroid stim ulating hormone (TSH) measurement (units/volume)Ordered By: Magalys Mclaughlin on 09-25-2024 TSH Qn 0.942 uIU/mL 0.358-3.740 [facility] Serum or plasma urea nitroge n measurement (mass/volume)Ordered By: Magalys Mclaughlin on 09-25-2024 Urea nitrogen [Mass/Vol] 8 mg/dL 7-18 [facility] Sodium levelOrdered By: Ruth Mclaughlin on 09-25-2024 Sodium [Moles/Vol] 136 mmol/L 136-145 [facility] TSH QnOrdered By: Magalys roach on 09-25-2024 Thyroid Stimulating Hormone (TSH) 0.942 uIU/mL 0.358-3.740 [facility] Total proteinOrdered By: Eunice Mclaughlin on 09-25-2024 Protein [Mass/Vol] 7.6 g/dL 6.4-8.2 [facility] Treponema sp Ab Ql (S)Ordere d By: Magalys Mclaughlin on 09-25-2024 Syphilis Total Antibody Non-Reactive [facility] Type AND Screenon 09-25-2024 Ab SCREEN GEL Negative Normal [facility] Comment on above: Order Comment: PN Performed By: #### L 501.9985, L3890.6300, L3890.6100, L500.4050, L3890.6005, L509.8000, L501.9520, L100.0100, L509.4005, BTS ####[facility] [address] [place], [place], [id number] ABO and Rh group Nom (Bld) Blood group O Rh(D) positive Normal [facility] Comment on above: Order Comment: PN Performed By: #### L 501.9985, L3890.6300, L3890.6100, L500.4050, L3890.6005, L509.8000, L501.9520, L100.0100, L509.4005, BTS ####[facility] [address] [place], [address] Urine creatinine measurement (mass/volume)Ordered By: Magalys Mclaughlin on 09-25-2024 Creatinine (U) [Mass/Vol] 43.80 mg/dL NO RANGE EST. [facility] Urine cultureOrdered By: Eunice Mclaughlin on 09-25-2024 Bacteria identified Cx Nom (U) Streptococcus agalactiae (B) Abnormal [facility] Bacteria identified Cx Nom (U) Positive Abnormal [facility] Bacteria identified Cx Nom (U) Streptococcus agalactiae (B) Abnormal [facility] Bacteria identified Cx Nom (U) Positive Abnormal [facility] Urine protein/creatinine mas s ratioOrdered By: Magalys Mclaughlin on 09-25-2024 Protein/Creatinine (U) [Mass ratio] 228 mg/g CRE High 0-200 [facility] White blood cell (WBC) count Ordered By: Magalys Mclaughlin on 09-25-2024 WBC (Bld) [#/Vol] 11.3 10*3/uL High 4.4-11.0 [facility] CNOVon 06-09-2023 CNOV Office Visit (ENDOAV) ---- ALMAGUERNIDHI RAIN ([id number]) 1990 F Date Time Provider Department 06/09/23 10:20 AM YOSSI ALCAZAR V ENDOAV During your visit today, we recorded the following information about you: Pulse Blood pressure Weight 118/minute 138/95 123.7 kg Yossi Alcazar V, MD 07/07/2023 5:35 PM Signed NEW PATIENT VISIT Consulted by: Self ASSESSMENT AND RECOMMENDATIONS: Nidhi Flory Almaguer is a 32 year old female with 1.DM Type 2 /Glycemic control Microvascular complications:hyper tension Macrovascular complications: None Per ADA guidelines, target HbA1C is less than 7.0% . I recommend a target HbA1c of 6.5 for this patient (Taking into consideration age, presence or absence of modifiable and non- modifiable co- morbidities and social circumstances) Hemoglobin A1C (POCT) (%) Date Value 06/09/2023 11.0 ) PLAN: (E11.9) Type 2 diabetes (HCC) (primary encounter diagnosis) Comment: Plan: CONSULT TO DIABETES EDUCATION DSME/MNT, COMP METABOLIC PANEL, HGB A1C The following approved medication requests have been transmitted electronically. Requested Prescriptions Signed Prescriptions Disp Refills semaglutide (OZEMPIC) 0.25 mg or 0.5 mg(2 mg/1.5 mL) pen 12 Each 1 Sig: Inject 0.25 mg subcutaneously one time a week. Yossi Alcazar MD Ct metformin (E66.01, Z68.41) Class 3 severe obesity with serious comorbidity and body mass index (BMI) of 40.0 to 44.9 in adult, unspecified obesity type (HCC) Comment: Diet and lifestryle Plan: (E11.65) Hyperglycemia due to diabetes mellitus (HCC) Comment: same as above Plan: same as above # Medication miguel ángel Follow up: RTC in 3-6 months with labs prior Advised patient that they should call or send My Chart message for any lab results done after the visit within 1-2 weeks of having them obtained. The patient is to continue to follow up with his/her PCP and with other consultants regarding his/her other medical problems. I will communicate by either mailing or electronically routing a copy of today's office note to the primary care physician No primary care provider on file. and referring physician Self Yossi Alcazar M.D Chief Complaint : DM Type 2 HPI: Nidhi Almaguer is a 32 year old female with DM Type 2 Duration: diagnosed a few years back per patient Quality: uncontrolled Severity:No , Modifying factors: none Associated signs and symptoms: Denies symptoms of excessive thirst or increased frequency of urination, chest pain or dyspnea , numbness, tingling or pain in extremities, new or unusual visual symptoms and low sugar/hypoglycemic reactions Current regimen: Highlighted below Diet: No specific diet regimen Exercise: Sporadic irregular exercise Sleep:fair Stress:7 Work: ANNUAL EYE VISIT: No Podiatry visit: No Previous diabetes education: No DATA REVIEWED 1)SMBG: CGM: No Checks blood sugar : 0 times a day Based on the blood glucose meter/ CGM download:if available, data pasted on top of the note. Average blood sugars: AM Lunch Supper HS 7 day av day av day avg: Fasting hyperglycemia : Perri phenomenon: Hypoglycemia: No Nocturnal hypoglycemia: 2)Creatinine: Creatinine Date Value Ref Range Status 08/06/2010 0.80 0.70 - 1.40 mg/dL Final 3) HbA1c: Hemoglobin A1C (POCT) (%) Date Value 06/09/2023 11.0 ) 4) EF: No results found for: LVEF, LVEDD, LVESD 5) Other pertinent labs reviewed in [facility] PHYSICAL EXAM: BP 138/95 Pulse 118 Wt 123.7 kg (272 lb 9.6 oz) LMP 02/17/2014 BMI 41.45 kg/m? Body mass index is 41.45 kg/m?. GEN: alert, oriented, no acute distress SKIN: Acanthosis No. No skin tags unremarkable THYROID: Non-enlarged gland, no palpable nodules ABD: BS+, soft, non-tender, non-distended FEET: no ulcers or calluses PULSES: BL dorsalis pedis well felt BL MONOFILAMENT: - If done, is updated in Yossi Keith V, MD 06/09/2023 11:[address] Eluogio Cagle BALANCE CLERK See one of them every 3 months with blood work before Physical Activity and Diabetes Physical activity is one of the best ways to lower your blood sugar. Being active is as important as taking your medicine, checking your blood sugar, and planning your meals. Be sure that the activity you are planning is safe for your health. Before you begin an exercise program, talk with your health care provider. How often should I be active? Your goal should be at least 30 minutes, five days per week. One 30-minute session may be broken into three 10-minute sessions. Are there any rules for exercise safety? Exercise with someone else, if possible. Carry a cell phone. Wear your medical alert tag. C (more content not included)... Normal [facility] HEMOGLOBIN A1C (POC)on 06-09 HbA1c (Bld) [Mass fraction] 11.0 % Abnormal 4.2 - 5.6 % [facility] HbA1c (Bld) [Mass fraction]o n 09-10-2022 Interpretation and review of laboratory results Abnormal [facility] POC Glycosylated Hemoglobin (Hb A1C)on 09-10-2022 HbA1c (Bld) [Mass fraction] 11.3 % Abnormal 4.0 - 6.0 % [facility] Comprehensive metabolic 2000 panelon 12-23-2021 Albumin [Mass/Vol] 3.2 g/dL 3.2 - 5.2 g/dL [facility] ALP [Catalytic activity/Vol] 109 U/L 40 - 140 U/L [facility] ALT [Catalytic activity/Vol] 29 U/L 14 - 65 U/L [facility] Anion gap [Moles/Vol] 15 mmol/L 10 - 20 mmol/L [facility] AST [Catalytic activity/Vol] 20 U/L 0 - 45 U/L [facility] Bilirubin [Mass/Vol] 0.4 mg/dL 0 - 1.3 mg/dL [facility] Calcium [Mass/Vol] 8.9 mg/dL 8.4 - 10. 2 mg/dL [facility] Chloride [Moles/Vol] 105 mmol/L 98 - 10 8 mmol/L [facility] Creatinine [Mass/Vol] 0.71 mg/dL 0.40 - 1.10 mg/dL [facility] GFR/1.73 sq M.predicted CKD-EPI (S/P/Bld) [Vol rate/Area] 115 - PINF [facility] Glucose [Mass/Vol] 304 mg/dL High 65 - 99 mg/dL [facility] HCO3 [Moles/Vol] 22 mmol/L 21 - 32 mmol/L [facility] Potassium [Moles/Vol] 4.4 mmol/L 3.5 - 5.1 mmol/L [facility] Protein [Mass/Vol] 7.1 g/dL 6 - 8 g/dL [facility] Sodium [Moles/Vol] 138 mmol/L 135 - 145 mmol/L [facility] Urea nitrogen [Mass/Vol] 9 mg/dL 8 - 25 mg/d L [facility] Urea nitrogen/Creatinine [Mass ratio] 12.7 mg/mg 10 - 20 [facility] The eGFR should be used for monitoring renal function only and not for medication dosing. [facility] HbA1c (Bld) [Mass fraction]o n 12-23-2021 Interpretation and review of laboratory results Abnormal [facility] Laboratory - Hematology and Cell countson 12-23-2021 HbA1c (Bld) [Mass fraction] 9.6 % Abnormal 4 - 6 % [facility] Lipid 1996 panelon Cholesterol [Mass/Vol] 195 mg/dL 100 - 199 mg/dL [facility] Comment on above: National Cholesterol Education Program Guidelines: Cholesterol Desirable: <200 mg/dL Borderline High: 200-239 mg/dL High: greater than or equal to 240 mg/dL Cholesterol in HDL [Mass/Vol] 58 mg/dL 40 - 59 mg/dL [facility] Comment on above: National Cholesterol Education Program Guidelines: HDL Cholesterol Low: <40 mg/dL Near Optimal: 40-59 mg/dL High: greater than or equal to 60 mg/dL Cholesterol in LDL [Mass/Vol] 73 mg/dL 10 - 130 mg/dL [facility] Comment on above: National Cholesterol Education Program Guidelines: LDL Cholesterol Optimal: <100 mg/dL Near Optimal/above Optimal: 100-129 mg/dL Borderline High: 130-159 mg/dL High: 160-189 mg/dL Very High: greater than or equal to 190 mg/dL Cholesterol non HDL [Mass/Vol] 137 mg/dL [facility] Comment on above: National Cholesterol Education Program Guidelines: NON HDL Cholesterol Desirable: <130 mg/dL Borderline High: 130-159 mg/dL High: 160-189 mg/dL Very High: > or = 190 mg/dL Cholesterol.total/Choles terol in HDL [Mass ratio] 3.4 {ratio} ratio [facility] Comment on above: Female Cholesterol/H DL Ratio: Average risk: 4.4 1/2 average risk: 3.3 2 x average risk: 7.1 Triglyceride [Mass/Vol] 322 mg/dL High 30 - 150 mg/ dL [facility] Comment on above: National Cholesterol Education Program Guidelines: Triglyceride Normal: <150 mg/dL Borderline High: 150-199 mg/dL High: 200-499 mg/dL Very High: greater than or equal to 500 mg/dL No Panel Informationon 12-23 Interpretation and review of laboratory results Abnormal [facility] TSH DL <= 0.005 mIU/L Qnon 0 12-23-2021 Interpretation and review of laboratory results Normal [facility] TSH Qn 0.63 m[IU]/L [facility] ESTROGENS, TOTALon 8 ESTROGENS, TOTAL 257 pg/mL [facility] Comment on above: Result Comment: (NOT E) Prepubertal <40 Female Cycle: 1-10 Days 61 - 394 11-20 Days 122 - 437 21-30 Days 156 - 350 Post-Menopausal <40 HMG Treatment for Ovulation Induction: 400 - 800PERFORMED AT [facility] Performed By: #### R TSH ####[place] [address]#### LTEST, LLH, LFSH ####Testing performed at [address] [address]#### LESTS ####Testing performed at [facility] [place][note 2] FSHon 06-07-2018 FSH 6.7 mIU/mL [facility] Comment on above: Result Comment: (NOT E) Adult Female: Follicular phase 3.5 - 12.5 Ovulation phase 4.7 - 21.5 Luteal phase 1.7 - 7.7 Postmenopausal 25.8 - 134.8PERFORMED AT [facility] Performed By: #### R TSH ####Testing performed at [address] [address]#### LTEST, LLH, LFSH ####Testing performed at [address] [address]#### LESTS ####Testing performed at [facility] [place][note 2] LUTEINIZING HORMONEon 2017 LH 23.7 mIU/mL [facility] Comment on above: Result Comment: (NOT E) Adult Female: Follicular phase 2.4 - 12.6 Ovulation phase 14.0 - 95.6 Luteal phase 1.0 - 11.4 Postmenopausal 7.7 - 58.5PERFORMED AT [facility] Performed By: #### R TSH ####Testing performed at [address] [place] [address]#### LTEST, LLH, LFSH ####Testing performed at [address] [place] [address]#### LESTS ####Testing performed at [facility] [place][note 2] TESTOSTERONEon 06-07-2018 Testosterone mass conc 36 ng/dL Normal 8-48 [facility] Comment on above: Result Comment: PERF ORMED AT [facility] Performed By: #### R TSH ####Testing performed at [address] [place] [address]#### LTEST, LLH, LFSH ####Testing performed at [address] [place] [address]#### LESTS ####Testing performed at [facility] [place][note 2] TSH,REFLEX FREE T4on 018 TSH,REFLEX FREE T4 1.037 uIU/ML Normal 0.45-5.33 [facility] Comment on above: Performed By: #### R TSH ####Testing performed at [address] [place] [address]#### LTEST, LLH, LFSH ####Testing performed at [address] [place] [address]#### LESTS ####Testing performed at [facility] [place][note 2] PAP IG,RFX HPV ASCUon 2017 DIAGNOSIS: Comment [facility] Comment on above: Result Comment: NEGA TIVE FOR INTRAEPITHELIAL LESION AND MALIGNANCY. IGLBP CPT CODE AUTOMATION Comment [facility] Comment on above: Result Comment: (NOT E)This liquid based ThinPrep(R) pap test was screened with theuse of an image guided system. NOTE: Comment [facility] Comment on above: Result Comment: (NOT E)The Pap smear is a screening test designed to aid in the detection ofpremalignant and malignant conditions of the uterine cervix. It isnot a diagnostic procedure and should not be used as the sole meansof detecting cervical cancer. Both false-positive and false-negativereports do occur. PERFORMED BY: Comment [facility] Comment on above: Result Comment: Madhavi Estrada, Technical Sales Support Manager (ASCP) SPECIMEN ADEQUACY: Comment [facility] Comment on above: Result Comment: (NOT E)Satisfactory for evaluation. Endocervical and/or squamous metaplasticcells (endocervical component) are present. . Comment [facility] Comment on above: Result Comment: (NOT E)The HPV DNA reflex criteria were not met with this specimen resulttherefore, no HPV testing was performed.Dates / Results....[id number] #No. of containers..01 ThinPrep VialPERFORMED AT [facility] . . [facility] Vital Signs Date Time Vital Sign Value Performing Clinician Facility 03-23-2025 10:41-0400 Body height 170.18 cm No Primary Care Physician [facility] 03-23-2025 10:41-0400 Body mass index (BMI) [Ratio] 45.4 kg/m2 No Primary Care Physician [facility] 03-23-2025 10:41-0400 Body weight 131.71 kg No Primary Care Physician [facility] 03-23-2025 10:41-0400 Diastolic blood pressure 83 mm[Hg] No Primary Care Physician [facility] 03-23-2025 10:41-0400 Systolic blood pressure 128 mm[Hg] No Primary Care Physician [facility] 03-16-2025 14:58-0400 Diastolic blood pressure 67 mm[Hg] No Primary Care Physician [facility] 03-16-2025 14:58-0400 Heart rate 107 /min No Primary Care Physician [facility] 03-16-2025 14:58-0400 Systolic blood pressure 111 mm[Hg] No Primary Care Physician [facility] 03-16-2025 14:57-0400 Body temperature 97.3 [degF] No Primary Care Physician [facility] 03-16-2025 14:57-0400 Respiratory rate 18 /min No Primary Care Physician [facility] 03-16-2025 14:27-0400 Body height 170.18 cm No Primary Care Physician [facility] 03-16-2025 14:27-0400 Body mass index (BMI) [Ratio] 45.4 kg/m2 No Primary Care Physician [facility] 03-16-2025 14:27-0400 Body weight 131.54 kg No Primary Care Physician [facility] 03-16-2025 13:31-0400 Body height 170.18 cm No Primary Care Physician [facility] 03-16-2025 13:31-0400 Body mass index (BMI) [Ratio] 45.4 kg/m2 No Primary Care Physician [facility] 03-16-2025 13:31-0400 Body weight 131.65 kg No Primary Care Physician [facility] 03-16-2025 13:31-0400 Diastolic blood pressure 79 mm[Hg] No Primary Care Physician [facility] 03-16-2025 13:31-0400 Systolic blood pressure 120 mm[Hg] No Primary Care Physician [facility] 03-09-2025 13:43-0400 Body height 170.18 cm No Primary Care Physician [facility] 03-09-2025 13:43-0400 Body mass index (BMI) [Ratio] 45.1 kg/m2 No Primary Care Physician [facility] 03-09-2025 13:43-0400 Body weight 130.69 kg No Primary Care Physician [facility] 03-09-2025 13:43-0400 Diastolic blood pressure 86 mm[Hg] No Primary Care Physician [facility] 03-09-2025 13:43-0400 Systolic blood pressure 133 mm[Hg] No Primary Care Physician [facility] 03-02-2025 07:01-0400 Body height 170.2 cm Zita Randolph MD Work Phone: [facility] 03-02-2025 07:01-0400 Body mass index (BMI) [Ratio] 44.64 kg/m2 Zita Randolph MD Work Phone: [facility] 03-02-2025 07:01-0400 Body temperature 97.81 [degF] Zita Randolph MD Work Phone: [facility] 03-02-2025 07:01-0400 Body weight 129.28 kg Zita Randolph MD Work Phone: [facility] 03-02-2025 07:01-0400 Diastolic blood pressure 86 mm[Hg] Zita Randolph MD Work Phone: [facility] 03-02-2025 07:01-0400 Heart rate 106 /min Zita Randolph MD Work Phone: [facility] 03-02-2025 07:01-0400 Respiratory rate 16 /min Zita Randolph MD Work Phone: [facility] 03-02-2025 07:01-0400 SaO2% (BldA) [Mass fraction] 97 % Zita Randolph MD Work Phone: [facility] 03-02-2025 07:01-0400 Systolic blood pressure 127 mm[Hg] Zita Randolph MD Work Phone: [facility] 02-26-2025 13:25-0400 Body height 170.18 cm No Primary Care Physician [facility] 02-26-2025 13:25-0400 Body mass index (BMI) [Ratio] 44.9 kg/m2 No Primary Care Physician [facility] 02-26-2025 13:25-0400 Body weight 129.95 kg No Primary Care Physician [facility] 02-26-2025 13:25-0400 Diastolic blood pressure 79 mm[Hg] No Primary Care Physician [facility] 02-26-2025 13:25-0400 Systolic blood pressure 133 mm[Hg] No Primary Care Physician [facility] 02-12-2025 13:48-0400 Body height 170.18 cm No Primary Care Physician [facility] 02-12-2025 13:39-0400 Body mass index (BMI) [Ratio] 44.9 kg/m2 No Primary Care Physician [facility] 02-12-2025 13:39-0400 Body weight 130.18 kg No Primary Care Physician [facility] 02-12-2025 13:39-0400 Diastolic blood pressure 82 mm[Hg] No Primary Care Physician [facility] 02-12-2025 13:39-0400 Systolic blood pressure 122 mm[Hg] No Primary Care Physician [facility] 01-17-2025 15:47-0400 Body height 170.18 cm No Primary Care Physician [facility] 01-17-2025 15:42-0400 Body mass index (BMI) [Ratio] 43.4 kg/m2 No Primary Care Physician [facility] 01-17-2025 15:42-0400 Body weight 125.64 kg No Primary Care Physician [facility] 01-17-2025 15:42-0400 Diastolic blood pressure 78 mm[Hg] No Primary Care Physician [facility] 01-17-2025 15:42-0400 Systolic blood pressure 118 mm[Hg] No Primary Care Physician [facility] 01-01-2025 09:01-0400 Body height 170.18 cm No Primary Care Physician [facility] 01-01-2025 09:01-0400 Body mass index (BMI) [Ratio] 43.4 kg/m2 No Primary Care Physician [facility] 01-01-2025 09:01-0400 Body weight 125.87 kg No Primary Care Physician [facility] 01-01-2025 09:01-0400 Diastolic blood pressure 84 mm[Hg] No Primary Care Physician [facility] 01-01-2025 09:01-0400 Heart rate 104 /min No Primary Care Physician [facility] 01-01-2025 09:01-0400 SaO2% (BldA) [Mass fraction] 98 % No Primary Care Physician [facility] 01-01-2025 09:01-0400 Systolic blood pressure 128 mm[Hg] No Primary Care Physician [facility] 01-01-2025 07:51-0400 Body height 170.2 cm Amador Chacorta DO Work Phone: [facility] 01-01-2025 07:51-0400 Body mass index (BMI) [Ratio] 43.38 kg/m2 Amador Chacorta DO Work Phone: [facility] 01-01-2025 07:51-0400 Body temperature 98.29 [degF] Amador Chacorta DO Work Phone: [facility] 01-01-2025 07:51-0400 Body weight 125.65 kg Amador Chacorta DO Work Phone: [facility] 01-01-2025 07:51-0400 Diastolic blood pressure 83 mm[Hg] Amador Chacorta DO Work Phone: [facility] 01-01-2025 07:51-0400 Heart rate 103 /min Amador Chacorta DO Work Phone: [facility] 01-01-2025 07:51-0400 Respiratory rate 16 /min Amador Chacorta DO Work Phone: [facility] 01-01-2025 07:51-0400 SaO2% (BldA) [Mass fraction] 98 % Amador Chacorta DO Work Phone: [facility] 01-01-2025 07:51-0400 Systolic blood pressure 131 mm[Hg] Amador Chacorta DO Work Phone: [facility] 12-18-2024 15:44-0400 Body height 170.18 cm No Primary Care Physician [facility] 12-18-2024 15:43-0400 Body mass index (BMI) [Ratio] 43.7 kg/m2 No Primary Care Physician [facility] 12-18-2024 15:43-0400 Body weight 126.66 kg No Primary Care Physician [facility] 12-18-2024 15:43-0400 Diastolic blood pressure 82 mm[Hg] No Primary Care Physician [facility] 12-18-2024 15:43-0400 Systolic blood pressure 122 mm[Hg] No Primary Care Physician [facility] 11-20-2024 09:24-0400 Body mass index (BMI) [Ratio] 42.3 kg/m2 No Primary Care Physician [facility] 11-20-2024 09:24-0400 Body weight 122.46 kg No Primary Care Physician [facility] 11-20-2024 09:24-0400 Diastolic blood pressure 81 mm[Hg] No Primary Care Physician [facility] 11-20-2024 09:24-0400 Systolic blood pressure 129 mm[Hg] No Primary Care Physician [facility] 10-23-2024 14:32-0400 Body mass index (BMI) [Ratio] 41.7 kg/m2 No Primary Care Physician [facility] 10-23-2024 14:32-0400 Body weight 120.82 kg No Primary Care Physician [facility] 10-23-2024 14:32-0400 Diastolic blood pressure 92 mm[Hg] No Primary Care Physician [facility] 10-23-2024 14:32-0400 Systolic blood pressure 141 mm[Hg] No Primary Care Physician [facility] 09-25-2024 13:59-0500 Body height 170.18 cm No Primary Care Physician [facility] 09-25-2024 13:59-0500 Body mass index (BMI) [Ratio] 40.7 kg/m2 No Primary Care Physician [facility] 09-25-2024 13:59-0500 Body weight 118.04 kg No Primary Care Physician [facility] 09-25-2024 13:59-0500 Diastolic blood pressure 105 mm[Hg] No Primary Care Physician [facility] 09-25-2024 13:59-0500 Heart rate 119 /min No Primary Care Physician [facility] 09-25-2024 13:59-0500 SaO2% (BldA) [Mass fraction] 98 % No Primary Care Physician [facility] 09-25-2024 13:59-0500 Systolic blood pressure 156 mm[Hg] No Primary Care Physician [facility] 09-25-2024 08:42-0500 Body mass index (BMI) [Ratio] 40.7 kg/m2 No Primary Care Physician [facility] 09-25-2024 08:42-0500 Body weight 117.99 kg No Primary Care Physician [facility] 09-25-2024 08:42-0500 Diastolic blood pressure 93 mm[Hg] No Primary Care Physician [facility] 09-25-2024 08:42-0500 Systolic blood pressure 146 mm[Hg] No Primary Care Physician [facility] 01-10-2024 16:02-0400 Body height 170.2 cm Zita Randolph MD Work Phone: [facility] 01-10-2024 16:02-0400 Body mass index (BMI) [Ratio] 42.13 kg/m2 Zita Randolph MD Work Phone: [facility] 01-10-2024 16:02-0400 Body temperature 98.01 [degF] Zita Randolph MD Work Phone: [facility] 01-10-2024 16:02-0400 Body weight 122.02 kg Zita Randolph MD Work Phone: [facility] 01-10-2024 16:02-0400 Diastolic blood pressure 68 mm[Hg] Zita Randolph MD Work Phone: [facility] 01-10-2024 16:02-0400 Heart rate 125 /min Zita Randolph MD Work Phone: [facility] 01-10-2024 16:02-0400 Respiratory rate 16 /min Zita Randolph MD Work Phone: [facility] 01-10-2024 16:02-0400 SaO2% (BldA) [Mass fraction] 98 % Zita Randolph MD Work Phone: [facility] 01-10-2024 16:02-0400 Systolic blood pressure 123 mm[Hg] Zita Randolph MD Work Phone: [facility] 06-09-2023 10:22-0500 Body weight 123.65 kg Yossi Castellon MD Work Phone: [facility] 06-09-2023 10:22-0500 Diastolic blood pressure 95 mm[Hg] Yossi Castellon MD Work Phone: [facility] 06-09-2023 10:22-0500 Heart rate 118 /min Yossi Castellon MD Work Phone: [facility] 06-09-2023 10:22-0500 Systolic blood pressure 138 mm[Hg] Yossi Castellon MD Work Phone: [facility] 09-10-2022 07:59-0500 Body height 170.2 cm Zita Randolph MD Work Phone: [facility] 09-10-2022 07:59-0500 Body mass index (BMI) [Ratio] 40.72 kg/m2 Zita Randolph MD Work Phone: [facility] 09-10-2022 07:59-0500 Body temperature 98.29 [degF] Zita Randolph MD Work Phone: [facility] 09-10-2022 07:59-0500 Body weight 117.94 kg Zita Randolph MD Work Phone: [facility] 09-10-2022 07:59-0500 Diastolic blood pressure 81 mm[Hg] Zita Randolph MD Work Phone: [facility] 09-10-2022 07:59-0500 Heart rate 126 /min Zita Randolph MD Work Phone: [facility] 09-10-2022 07:59-0500 Respiratory rate 16 /min Zita Randolph MD Work Phone: [facility] 09-10-2022 07:59-0500 SaO2% (BldA) [Mass fraction] 98 % Zita Randolph MD Work Phone: [facility] 09-10-2022 07:59-0500 Systolic blood pressure 118 mm[Hg] Zita Randolph MD Work Phone: [facility] 12-23-2021 09:05-0400 Diastolic blood pressure 85 mm[Hg] Zita Randolph MD Work Phone: [facility] 12-23-2021 09:05-0400 Heart rate 113 /min Zita Randolph MD Work Phone: [facility] 12-23-2021 09:05-0400 Systolic blood pressure 155 mm[Hg] Zita Randolph MD Work Phone: [facility] 12-23-2021 09:00-0400 Body height 170.2 cm Zita Randolph MD Work Phone: [facility] 12-23-2021 09:00-0400 Body mass index (BMI) [Ratio] 41.5 kg/m2 Zita Randolph MD Work Phone: [facility] 12-23-2021 09:00-0400 Body temperature 98.91 [degF] Zita Randolph MD Work Phone: [facility] 12-23-2021 09:00-0400 Body weight 120.2 kg Zita Randolph MD Work Phone: [facility] 12-23-2021 09:00-0400 Respiratory rate 16 /min Zita Randolph MD Work Phone: [facility] 12-23-2021 09:00-0400 SaO2% (BldA) [Mass fraction] 98 % Zita Randolph MD Work Phone: [facility] 10-25-2020 12:00-0400 Height 170.2 cm Luz Elena Sherman [facility] 10-24-2020 12:58-0400 BMI (Body Mass Index) 40.44 kg/m2 [facility] 10-24-2020 12:58-0400 Body Temperature 98.71 [degF] [facility] 10-24-2020 12:58-0400 Body weight 117.12 kg [facility] 10-24-2020 12:58-0400 BP Diastolic 78 mm[Hg] [facility] 10-24-2020 12:58-0400 BP Systolic 109 mm[Hg] [facility] 10-24-2020 12:58-0400 Height 170.2 cm [facility] 10-24-2020 12:58-0400 Pulse (Heart Rate) 102 /min [facility] 10-24-2020 12:58-0400 Pulse Oximetry 99 % [facility] 10-24-2020 12:58-0400 Respiratory Rate 16 /min [facility] 10-07-2020 09:12-0500 BP Diastolic 89 mm[Hg] [facility] 10-07-2020 09:12-0500 BP Systolic 153 mm[Hg] [facility] 10-07-2020 09:04-0500 BMI (Body Mass Index) 41.87 kg/m2 [facility] 10-07-2020 09:04-0500 Body Temperature 98.2 [degF] [facility] 09:04-0500 Body weight 121.25 kg Zita [facility] 10-07-2020 09:04-0500 Height 170.2 cm Zita [facility] 10-07-2020 09:04-0500 Pulse (Heart Rate) 86 /min [facility] 10-07-2020 09:04-0500 Pulse Oximetry 99 % [facility] 10-07-2020 09:04-0500 Respiratory Rate 18 /min [facility] Encounters Encounter Date Encounter Type Care Provider Facility Start: 03-27-2025 ambulatory [facility] Facility: [facility] Start: 03-23-2025 End: 03-23-[address] Mae Reeves MD -[facility] Work Phone: Start: 03-23-2025 End: 03-23-2025 ambulatory No Primary Care Physician [facility] Start: 03-20-2025 End: 03-20-2025 ambulatory No Primary Care Physician -Ultrasound [facility] Start: 03-20-2025 End: 03-20-[address] Mae Reeves MD -Ultrasound [facility] Work Phone: Start: 03-20-2025 End: 03-20-2025 ambulatory [facility] Facility:[facility] Start: 03-17-2025 ambulatory Veronica Almeida y:[facility] Start: 03-17-2025 Non-patient / Non-visit Veronica zafar [facility] Start: 03-16-2025 End: 03-16-2025 Patient encounter procedure Tere GUERIN -[facility] Work Phone: Start: 03-16-2025 End: 03-16-2025 ambulatory No Primary Care Physician [facility] Start: 03-13-2025 End: 03-13-2025 ambulatory No Primary Care Physician -Ultrasound [facility] Start: 03-13-2025 End: 03-13-[address] Mea Reeves MD -Ultrasound [facility] Work Phone: Start: 03-13-2025 End: 03-13-2025 ambulatory No Primary Care Physician Facility:[facility] Start: 03-09-2025 End: 03-09-2025 Patient encounter procedure Tere GUERIN -[facility] Work Phone: Start: 03-09-2025 End: 03-09-2025 ambulatory No Primary Care Physician -[facility] Start: 03-06-2025 End: 03-06-2025 ambulatory No Primary Care Physician -Ultrasound [facility] Start: 03-06-2025 End: 03-06-[address] Mae Reeves MD -Ultrasound [facility] Work Phone: Start: 03-06-2025 End: 03-06-2025 ambulatory No Primary Care Physician Facility:[facility] Start: 03-02-2025 End: 03-02-2025 ambulatory ZITA RANDOLPH [facility] Ambulatory Start: 03-02-2025 End: 03-02-2025 Office outpatient visit 25 minutes Zita Randolph MD Work Phone: [facility] Comment on above: Hypertension, unspec ified type (Primary Dx); Type 2 diabetes mellitus without complication, 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 (HCC); Obesity, morbid, BMI 40.0-49.9 (HCC) Start: 02-26-2025 End: 02-26-2025 Patient encounter procedure Tere GUERIN -[facility] Work Phone: Start: 02-26-2025 End: 02-26-2025 ambulatory No Primary Care Physician -[facility] Start: 02-13-2025 End: 02-13-2025 ambulatory DAVISONCECILLE Cano [facility] Start: 02-12-2025 End: 02-12-2025 Patient encounter procedure Rebecca PAN -[facility] Work Phone: Start: 02-12-2025 End: 02-12-2025 ambulatory No Primary Care Physician -[facility] Start: 02-12-2025 End: 02-12-2025 ambulatory Rebecca Jackson NP Facility:[facility] Start: 01-17-2025 End: 01-17-[address] Mae Reeves MD -[facility] Work Phone: Start: 01-17-2025 End: 01-17-2025 ambulatory No Primary Care Physician [facility] Work Phone: Start: 01-11-2025 End: 01-11-2025 ambulatory MD [facility] Start: 01-01-2025 End: 01-01-[address] Theodore Dunne MD -[facility] Work Phone: Start: 01-01-2025 End: 01-01-2025 ambulatory No Primary Care Physician [facility] Work Phone: Start: 01-01-2025 End: 01-01-2025 ambulatory AMADOR LUNA [facility] Start: 01-01-2025 End: 01-01-2025 Office outpatient visit 25 minutes Amador Luna DO Work Phone: [facility] Comment on above: Acute otitis media, unspecified otitis media type (Primary Dx) Start: 12-18-2024 End: 12-18-[address] Magalys Stoner DO -[facility] Work Phone: Start: 12-18-2024 End: 12-18-2024 ambulatory No Primary Care Physician [facility] Work Phone: Start: 12-05-2024 End: 12-05-2024 ambulatory MAGALYS RAPHAEL [facility] Start: 11-20-2024 End: 11-20-2024 Patient encounter procedure Tere Xiong CNM -[facility] Work Phone: Start: 11-20-2024 End: 11-20-2024 ambulatory No Primary Care Physician [facility] Start: 11-20-2024 End: 11-20-2024 ambulatory Tere Xiong Facility:[facility] Start: 11-17-2024 End: 11-21-2024 Refill Zita Randolph MD Work Phone: [facility] Comment on above: Type 2 diabetes asuncion itus without complication, unspecified whether fci insulin use (HCC) Start: 10-23-2024 End: 10-23-[address] Magalys Stoner DO -[facility] Work Phone: Start: 10-23-2024 End: 10-23-2024 ambulatory No Primary Care Physician [facility] Start: 09-25-2024 End: 09-25-[address] Theodore Dunne MD -[facility] Work Phone: Start: 09-25-2024 End: 09-25-2024 ambulatory No Primary Care Physician [facility] Start: 09-25-2024 End: 09-25-[address] Magalys Stoner DO -[facility] Work Phone: Start: 09-25-2024 End: 09-25-2024 ambulatory No Primary Care Physician [facility] Work Phone: Start: 09-25-2024 End: 09-25-2024 ambulatory Magalys Steven Mclaughlin Facility:[facility] Start: 09-08-2024 Non-patient / Non-visit Malissa umanzor RN -[facility] Work Phone: Start: 09-08-2024 ambulatory Malissa Meneses Facility :[facility] Start: 08-10-2024 End: 08-10-2024 Refill Zita Randolph MD Work Phone: [facility] Comment on above: Type 2 diabetes asuncion itus without complication, 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 (HCC) Start: 2024 End: 2024 Refill Zita Randolph MD Work Phone: [facility] Comment on above: Type 2 diabetes asuncion itus without complication, 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 (HCC) Start: 04-15-2024 End: 04-17-2024 Refill Zita Randolph MD Work Phone: [facility] Comment on above: Type 2 diabetes asuncion itus without complication, 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 (HCC) Start: 01-10-2024 End: 01-10-2024 Office outpatient visit 25 minutes Zita Randolph MD Work Phone: [facility] Comment on above: Obesity, morbid, BMI 40.0-49.9 (HCC) (Primary Dx); Primary hypertension; Type 2 diabetes mellitus without complication, unspecified whether fci insulin use (HCC); Anxiety and depression; control counseling Start: 09-15-2023 Refill Zita Randolph MD Work Phone: [facility] Comment on above: Anxiety and depressi on Start: 09-14-2023 ambulatory Amalia C Cioce [employer]MATURE CONNECTOR.BALANCE CLERK Work Phone: Endocrinology Comment on above: Appt 09/15/2023 Start: 09-14-2023 E-mail encounter fro m caregiver Amalai C Cioce ARMATURE CONNECTOR.BALANCE CLERK Work Phone: [facility] Start: 09-02-2023 ambulatory Yossi vanessa MD Work Phone: Endocrinology Comment on above: [employer] Start: 06-09-2023 End: 06-09-2023 ambulatory YOSSI ALCAZAR Facility:[facility] Start: 06-09-2023 End: 06-09-2023 Patient encounter procedure Yossi Alcazar MD Work Phone: Endocrinology Comment on above: Type 2 diabetes (HCC ) (Primary Dx); Class 3 severe obesity with serious comorbidity and body mass index (BMI) of 40.0 to 44.9 in adult, unspecified obesity type (HCC); Hyperglycemia due to diabetes mellitus (HCC) Start: 12-31-2022 ambulatory Luz Elena Parisi RD [facility] Start: 09-10-2022 End: 09-10-2022 Office outpatient visit 25 minutes Zita Randolph MD Work Phone: [facility] Comment on above: Hypertension, unspec ified type (Primary Dx); Type 2 diabetes mellitus without complication, 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 (HCC); Anxiety and depression Start: 08-06-2022 Refill Zita Randolph MD Work Phone: [facility] Comment on above: Anxiety and depressi on; Type 2 diabetes mellitus without complication, unspecified whether fci insulin use (HCC) Start: 08-04-2022 Refill Zita Randolph MD Work Phone: [facility] Comment on above: Type 2 diabetes asuncion itus without complication, 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 (HCC) Start: 02-20-2022 Refill Zita Randolph MD Work Phone: [facility] Comment on above: Type 2 diabetes asuncion itus without complication, 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 (HCC) Start: 01-20-2022 Refill Zita Randolph MD Work Phone: [facility] Comment on above: Type 2 diabetes asuncion itus without complication, 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 (HCC) Start: 12-23-2021 End: 12-27-2021 [facility] Start: 12-23-2021 End: 12-23-2021 Office outpatient visit 40 minutes Zita Randolph MD Work Phone: [facility] Comment on above: Elevated BP without diagnosis of hypertension (Primary Dx); Type 2 diabetes mellitus without complication, unspecified whether fci insulin use (HCC); Obesity, morbid, BMI 40.0-49.9 (HCC); Anxiety and depression Start: 07-17-2021 Refill Sue Stevens MA [facility] Start: 03-12-2021 End: 03-12-2021 Documentation procedure Jaci Diane RN [facility] Start: 01-16-2021 End: 01-16-2021 Refill Shavon Grady RN [facility] Start: 01-08-2021 End: 01-08-2021 Refill Zita Randolph MD Work Phone: [facility] Start: 12-16-2020 End: 12-16-2020 Refill Zita Randolph MD Work Phone: [facility] Start: 11-25-2020 End: 11-25-2020 Refill Shavon Grady RN [facility] Start: 10-31-2020 End: 10-31-2020 Refill Zita Randolph Work Phone: [facility] Comment on above: Type 2 diabetes asuncion itus without complication, 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 (HCC) Start: 10-25-2020 End: 10-25-2020 Telemedicine consultation with patient Zita Eugene Randolph Work Phone: [facility] Comment on above: Type 2 diabetes asuncion itus without complication, unspecified whether fci insulin use (HCC) Start: 10-24-2020 End: 10-24-2020 Office outpatient visit 25 minutes Zita Eugene Randolph Work Phone: [facility] Comment on above: Elevated BP without diagnosis of hypertension (Primary Dx); Type 2 diabetes mellitus without complication, unspecified whether fci insulin use (HCC); Anxiety and depression Start: 10-17-2020 End: 10-17-2020 Orders Only Sade Cueva Work Phone: [facility] Start: 10-08-2020 End: 10-08-2020 Telephone encounter Zita Eugene Randolph Work Phone: [facility] Start: 10-07-2020 End: 10-07-2020 Office outpatient new 45 minutes Zita Randolph Work Phone: [facility] Comment on above: Encounter to [facility] (Primary Dx); Anxiety and depression; Obesity, morbid, BMI 40.0-49.9 (HCC); Elevated BP without diagnosis of hypertension Start: 06-15-2018 End: 06-15-2018 Telephone encounter Franchesca Chu Work Phone: [facility] 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 Comment on above: Advice Only Start: 06-06-2018 Patient encounter procedure [facility] Start: 06-06-2018 Patient encounter procedure [facility] Start: 11-01-2017 Encounter for gynecological examination (general) (routine) without abnormal findings [facility] Start: 11-01-2017 Patient encounter procedure [facility] Encounter for gynecological examination (general) (routine) without abnormal findings [facility] Procedures Date Procedure Procedure Detail Performing Clinician Start: 03-20-2025 Ultrasonography for biophysical profile without non-stress testing No Primary Care Physician Start: 03-16-2025 Ultrasonography for biophysical profile without non-stress testing No Primary Care Physician Start: 03-13-2025 Ultrasonography for biophysical profile without non-stress testing No Primary Care Physician Start: 03-06-2025 Ultrasonography for biophysical profile without non-stress testing No Primary Care Physician Start: 02-12-2025 Serologic test for syphilis No Primary Care Physician Start: 11-20-2024 Procedure No Primary Care Physician Comment on above: TEST RESULTS LIMITSA FP, Serum, Open Spina Bifida Results Report Test Results: *Screen Negative* Gest. Age on Collection Date 16.9 weeks Gestat. Age Based On As provided Recalculations are not recommended when gestational dating by LMP and ultrasound are within 10 days. [age] Race Weight 210 lbs Insulin Dep Diabetes No Multiple Gestation No AFP Value 16.8 ng/mL AFP MoM 0.55 OSBR [place] 1 [place] [address] Interpretation Interpretation: Screen Negative This result is screen negative for OSB. The AFP MoM calculated is based on the gestational age provided. MS-AFP can identify up to 80% of open neural tube defects. Closed neural tube defects and some open defects may not be detected by this test. This test does not screen for Down Syndrome or Trisomy 18. If screening for Down Syndrome or Trisomy 18 is desired, contact [facility] to discuss available options. The [place] [employer] recommends amniocentesis be offered to women age 35 and older. Comment: Donna Berry, Ph.D., [facility] Director References: Available Upon Request. Multiples Of Median Cutoffs For AFP Elevations Jones 2.5 Black 2.8 IDD 2.0 Twins 4.5 Abbreviation Definitions IDD - Insulin Dep Diabetes OSBR - Open Spina Bifida Risk For further inquiries contact [facility] at [phone]. This test was developed and its performance characteristics determined by [facility]. It has not been cleared or approved by the Food and Drug Administration. [facility] PERFOR[facility] AT [facility] ORIGINAL REPORT ON FILE IN LAB CONTAINS ADDITIONAL TEST SITE INFORMATION. __ Start: 09-25-2024 Urine culture No Primar y Care Physician Start: 09-25-2024 Hepatitis B surface antigen measurement No Primary Care Physician Start: 09-25-2024 Hepatitis C antibody measurement No Primary Care Physician Comment on above: Non Reactive: < 0.8 Equivocal: >/= 0.8 to < 1.0 Reactive: >/= 1.0The CDC requires that a reactive/equivocal HCV antibody result be sent out for confirmation. HCV Quant by PCR testing. Start: 09-25-2024 Measurement of renal function No Primary Care Physician Comment on above: GFR Calc Start: 09-25-2024 Rubella IgG measurement No Primary Care Physician Comment on above: Antibody Results Int erpretation of Immune Status Non Reactive Presumed Non-Immune Equivocal Equivocal Reactive Presumed Immune Start: 06-09-2023 Hemoglobin A1c/Hemoglobin.total in Blood Yossi Alcazar MD Work Phone: Start: 09-10-2022 Hemoglobin glycosylated a1c Zita Randolph MD Work Phone: Start: 12-23-2021 Hemoglobin glycosylated a1c Zita Randolph MD Work Phone: Start: 08-07-2021 Microscopic observat ion [Identifier] in Cervix by Cyto stain Zita Randolph MD Work Phone: Plan of Treatment Date Care Activity Detail Author Start: 2066 Respiratory Syncytia l Virus Immunization: Risk, 60-74 Risk, or 75+ (1 - 1-dose 75+ series) Respiratory Syncytial Virus Immunization: Risk, 60-74 Risk, or 75+ (1 - 1-dose 75+ series) [facility] Start: 02-12-2035 Tetanus vaccination Tetanus: Every 1 0yrs [facility] Start: 03-31-2031 Tetanus vaccination Tetanus: Every 1 0yrs [facility] Start: 03-31-2031 Urine microalbumin profile DTaP,Tdap,Td Vaccine (4 - Td or Tdap) [facility] Start: 08-07-2026 Screening for malign ant neoplasm of cervix [facility] Start: 03-02-2026 Depression screening using PHQ-9 (Patient Health Questionnaire 9) score Depression Screening/Follow-Up (PHQ-2/9) [facility] Start: 06-22-2025 End: 06-22-2025 Patient encounter procedure 06/22/2025 8:40 AM EST Office Visit [facility] [address] [place] [address] Zita Randolph MD [address] [address] [facility] Start: 04-02-2025 Influenza vaccination [facility] Start: 04-02-2025 Respiratory Syncytia l Virus Immunization: Risk, 60-74 Risk, or 75+ (1 - Risk 1-dose series) Respiratory Syncytial Virus Immunization: Risk, 60-74 Risk, or 75+ (1 - Risk 1-dose series) [facility] Start: 03-25-2025 Hemoglobin A1c measurement A1C [facility] Start: 03-16-2025 Nonstress test [facility] Start: 03-16-2025 Biophysical pr ofile panel US [facility] Start: 03-16-2025 Obstetric monitoring [facility] Start: 03-16-2025 Ultrasonography for biophysical profile without non-stress testing OB Biophysical Prof W/O NST [facility] Start: 03-16-2025 Vital signs measurements [facility] Start: 03-16-2025 [facility] Start: 03-16-2025 Patient discharge [facility] Start: 03-02-2025 End: 03-02-2025 Patient encounter procedure 03/02/2025 7:00 AM EDT Office Visit [facility] [address] [place] [phone] Zita Randolph MD [address] [place] [address] [facility] Start: 02-12-2025 CBC W Auto Different ial panel - Blood [facility] Start: 02-12-2025 Serologic test for syphilis [facility] Start: 02-12-2025 [facility] Start: 09-27-2024 History and physical examination, annual for health maintenance Wellness Visit [facility] Start: 09-19-2024 End: 09-19-2024 Patient encounter procedure 09/19/2024 2:00 PM EST Office Visit [facility] [address] [place] [address] Zita Randolph MD [address] [place] [address] [facility] Start: 08-07-2024 Screening for malign ant neoplasm of cervix Pap Smear [facility] Start: 07-03-2024 End: 07-03-2024 Patient encounter procedure 07/03/2024 9:20 AM EST Office Visit [facility] [address] [place] [address] Zita Randolph MD [address] [address] [facility] Start: 04-02-2024 COVID-19 Vaccine () COVID-19 Vaccine () [facility] Start: 04-02-2024 COVID-19 Vaccine () COVID-19 Vaccine () [facility] Start: 04-02-2024 Influenza vaccination [facility] Start: 01-10-2024 End: 01-10-2024 Patient encounter procedure 01/10/2024 4:00 PM EDT Office Visit [facility] [address] [place] [address] Zita Randolph MD [address] [address] [facility] Start: 09-24-2023 History and physical examination, annual for health maintenance Wellness Visit [facility] Start: 09-09-2023 Hemoglobin A1c measurement [facility] Start: 09-09-2023 Hemoglobin A1c/Hemoglobin.total in Blood HbA1C [facility] Start: 08-02-2023 Depression Assessment Depression Ass essment [facility] Start: 06-09-2023 End: 09-08-2023 Comprehensive metabolic 2000 panel - Serum or Plasma COMP METABOLIC PANEL Lab Routine Type 2 diabetes (HCC) Expected: 06/09/2023, Expires: 09/08/2023 [facility] Work Phone: Comment on above: Expected: 06/09/2023 , Expires: 09/08/2023 Start: 06-09-2023 End: 09-08-2023 Hemoglobin A1c in Blood HGB A1C Lab Routine Type 2 diabetes (HCC) Expected: 06/09/2023, Expires: 09/08/2023 [facility] Work Phone: Comment on above: Expected: 06/09/2023 , Expires: 09/08/2023 Start: 04-02-2023 COVID-19 Vaccine () COVID-19 Vaccine () [facility] Start: 04-02-2023 Influenza vaccination [facility] Start: 03-24-2023 Hemoglobin A1c measurement A1C [facility] Start: 01-12-2023 End: 01-12-2023 Patient encounter procedure 01/12/2023 11:20 AM EDT Office Visit [facility] [address] [place] [phone] [place] [address] [place] [phone] [facility] Start: 12-23-2022 Depression screening using PHQ-9 (Patient Health Questionnaire 9) score Depression Screening/Follow-Up (PHQ-2/9) [facility] Start: 12-23-2022 Hepatitis B surface antibody level LDL Cholesterol [facility] Start: 12-23-2022 Urine screening for protein eGFR Diabetes [facility] Start: 12-22-2022 End: 12-22-2022 Patient encounter procedure 12/22/2022 Office Visit Primary Care Zita Randolph MD [address] [address] [facility] Start: 12-08-2022 Hemoglobin A1c measurement A1C [facility] Start: 11-01-2022 HPV Testing HPV Testing [facility] Start: 11-01-2022 Pap Testing Pap Testing [facility] Start: 11-01-2022 Screening for malign ant neoplasm of cervix [facility] Start: 09-10-2022 End: 09-10-2022 Patient encounter procedure 09/10/2022 Office Visit Primary Care iZta Randolph MD [address] [address] [facility] Start: 08-02-2022 Depression Assessment Depression Ass essment [facility] Start: 06-25-2022 eGFR Diabetes eGFR Diabetes [facility] Start: 04-02-2022 Influenza vaccination [facility] Start: 03-25-2022 Hemoglobin A1c measurement A1C [facility] Start: 03-24-2022 End: 03-24-2022 Patient encounter procedure 03/24/2022 Office Visit Primary Care Zita Randolph MD [facility] [address] [address] [facility] Start: 04-09-2021 HbA1c (Bld) [Mass fraction] A1C [facility] Start: 04-09-2021 Hemoglobin A1c measurement A1C [facility] Start: 04-02-2021 Influenza vaccination [facility] Start: 01-07-2021 Hemoglobin A1c measurement A1C [facility] Start: 11-29-2020 End: 11-29-2020 Telemedicine 11/29/2020 Telemedicine Nutrition Zita Randolph MD [facility] [address] [address] [phone] [facility] Start: 11-26-2020 End: 11-26-2020 Nutrition 11/26/2020 Nutrition Nutrition Zita Randolph MD [address] [place] [address] [phone] Lidya Bay LD [facility] Start: 11-21-2020 End: 11-21-2020 Telemedicine 11/21/2020 Telemedicine Nutrition Zita Randolph MD [facility] [address] [address] [phone] Brandy Bentley RN [facility] Start: 11-11-2020 End: 11-11-2020 Office Visit [facility] Start: 10-31-2020 End: 10-31-2020 Telemedicine 10/31/2020 Telemedicine Nutrition Zita Randolph MD [address] [address] [phone] Brandy Bentley RN [facility] Start: 10-25-2020 End: 10-25-2020 Telemedicine 10/25/2020 Telemedicine Nutrition Zita Randolph MD [address] [address] [phone] Luz Elena Sherman RD [facility] Start: 10-24-2020 End: 10-24-2020 Office Visit 10/24/2020 Office Visit Primary Care Zita Randolph MD [address] [address] [phone] [facility] Primary Care Physicians Start: 04-02-2020 Influenza vaccination Sequenti al Influenza Vaccine (#1) [facility] Start: 04-02-2020 Influenza vaccinatio n given Sequential Influenza Vaccine (#1) [facility] Start: 11-02-2018 End: 11-02-2018 Office Visit 11/02/2018 Office Visit 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 Franchesca Chu, [address] [place] [address] [phone] [facility] 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 Start: 11-01-2018 History and physical examination, annual for health maintenance Wellness Visit [facility] Start: 04-02-2018 Influenza vaccination INFLUENZA VACC INE (#1) [facility] Start: 2012 Screening for malign ant neoplasm of cervix PAP SMEAR DISCUSSION [facility] Start: 2010 Pneumococcal Vaccine : Ped or At-Risk (1 of 2 - PCV) Pneumococcal Vaccine: Ped or At-Risk (1 of 2 - PCV) [facility] Start: 2010 Third diphtheria, te tanus and acellular pertussis (DTaP) vaccination TDAP (ADULT) [facility] Start: 2009 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 Start: 2009 Hepatitis C antibody , confirmatory test Hepatitis C Screening [facility] Start: 2009 Hepatitis C screening Hepatitis C Sc reening [facility] Start: 2009 Hepatitis C Screening Hepatitis C Sc reening [facility] Start: 2009 HIV Screening HIV Screening [facility] Start: 2009 HIV screening HIV Screening [facility] Start: 2009 Tetanus vaccination [facility] Start: 2007 COVID-19 Vaccine (1 of 2) COVI D-19 Vaccine (1 of 2) [facility] Start: 2007 COVID-19 Vaccine (1) COVID-19 Vaccin e (1) [facility] Start: 2006 HIV screening HIV Screening [facility] Start: 2004 HIV screening HIV SCREENING DISCUSSION [facility] Start: 2003 COVID-19 Vaccine (1) COVID-19 Vaccin e (1) [facility] Start: 2001 3 comp foot exam completed Diabetic Foot Exam [facility] Start: 2001 Albumin DL <= 20 mg/ L (U) [Mass/Vol] Urine Microalbumin [facility] Start: 2001 Diabetic foot examination [facility] Start: 2001 Glaucoma screening [facility] Start: 2001 Hepatitis B screening Urine Albumin:Creatinine Ratio [facility] Start: 2001 Hepatitis C antibody , confirmatory test Dilated Retinal Exam [facility] Start: 2001 Microalbumin measure ment, urine, quantitative Urine Microalbumin [facility] Start: 2001 Ophthalmic examinati on and evaluation Ophthalmology Exam [facility] Start: 2001 Urine screening for protein [facility] Start: 1997 Pneumococcal vaccination [facility] Start: 1997 Pneumococcal Vaccine : Ped or At-Risk (1 - PCV) Pneumococcal Vaccine: Ped or At-Risk (1 - PCV) [facility] Start: 1997 Pneumococcal Vaccine : Ped or At-Risk (1 of 2 - PCV) Pneumococcal Vaccine: Ped or At-Risk (1 of 2 - PCV) [facility] Start: 1997 Pneumococcal Vaccine : Ped or At-Risk (1 of 2 - PPSV23) Pneumococcal Vaccine: Ped or At-Risk (1 of 2 - PPSV23) [facility] Start: 1996 COVID-19 Vaccine (#1) COVID-19 Vacci ne (#1) [facility] Start: 1996 COVID-19 Vaccine (1) COVID-19 Vaccin e (1) [facility] Start: 1994 History and physical examination, annual for health maintenance Wellness Visit [facility] Start: 01-09-1992 COVID-19 Vaccine (#1) COVID-19 Vacci ne (#1) [facility] Start: 1991 Screening for malign ant neoplasm of cervix Pap Smear [facility] Start: 1991 Tetanus vaccination Tetanus: Every 1 0yrs [facility] End: 10-07-2021 Basic metabolic 2000 panel Basic Metabolic Panel Lab Routine Encounter to establish care Obesity, morbid, BMI 40.0-49.9 (HCC) 1 Occurrences starting 10/07/2020 until 10/07/2021 [facility] Comment on above: 1 Occurrences starti ng 10/07/2020 until 10/07/2021 Basic metabolic 2000 panel Basic Metabolic Panel Lab Routine Encounter to establish care Obesity, morbid, BMI 40.0-49.9 (HCC) 10/07/2020 10:04 AM EST [facility] CBC W Auto Different ial panel - Blood [facility] End: 01-09-2025 Comprehensive metabolic 2000 panel - Serum or Plasma Comprehensive Metabolic Panel Lab Routine Type 2 diabetes mellitus without complication, 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 (HCC) 1 Occurrences starting 01/10/2024 until 01/09/2025 [facility] Comment on above: 1 Occurrences starti ng 01/10/2024 until 01/09/2025 Erythrocyte mean corpuscular volume determination [facility] Biophysical pr ofile panel [facility] Biophysical pr ofile panel [facility] End: 10-07-2021 HbA1c (Bld) [Mass fraction] Hemoglobin A1c Lab Routine Encounter to establish care Obesity, morbid, BMI 40.0-49.9 (HCC) 1 Occurrences starting 10/07/2020 until 10/07/2021 [facility] Comment on above: 1 Occurrences starti ng 10/07/2020 until 10/07/2021 HbA1c (Bld) [Mass fraction] Hemoglobin A1c Lab Routine Encounter to establish care Obesity, morbid, BMI 40.0-49.9 (HCC) 10/07/2020 10:04 AM EST [facility] Hematocrit [Volume Fraction] of Blood [facility] Hemoglobin [Mass/vol ume] in Blood [facility] End: 01-09-2025 Hemoglobin A1c/Hemoglobin.total in Blood Hemoglobin A1c Lab Routine Type 2 diabetes mellitus without complication, 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 (HCC) 1 Occurrences starting 01/10/2024 until 01/09/2025 [facility] Comment on above: 1 Occurrences starti ng 01/10/2024 until 01/09/2025 Leukocytes [#/volume ] in Blood [facility] End: 10-07-2021 Lipid 1996 panel Lipid Panel Lab Routine Encounter to establish care Obesity, morbid, BMI 40.0-49.9 ([facility]) 1 Occurrences starting 10/07/2020 until 10/07/2021 [facility] Comment on above: 1 Occurrences starti ng 10/07/2020 until 10/07/2021 Lipid 1996 panel Lipid Panel Lab Routine Encounter to establish care Obesity, morbid, BMI 40.0-49.9 ([facility]) 10/07/2020 10:04 AM EST [facility] End: 01-09-2025 Lipid 1996 panel - Serum or Plasma Lipid Panel Lab Routine Type 2 diabetes mellitus without complication, unspecified whether fci insulin use (HCC) 1 Occurrences starting 01/10/2024 until 01/09/2025 [facility] Comment on above: 1 Occurrences starti ng 01/10/2024 until 01/09/2025 Mean corpuscular hemoglobin concentration determination [facility] Mean corpuscular hemoglobin determination [facility] End: 12-23-2022 Microalbumin measurement, urine, quantitative Microalbumin/Creatinine Ratio, UR Random Lab Routine Type 2 diabetes mellitus without complication, 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 (HCC) 1 Occurrences starting 12/23/2021 until 12/23/2022 [facility] Work Phone: Comment on above: 1 Occurrences starti ng 12/23/2021 until 12/23/2022 End: 01-09-2025 Microalbumin measurement, urine, quantitative Microalbumin/Creatinine Ratio, UR Random Lab Routine Type 2 diabetes mellitus without complication, 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 (HCC) 1 Occurrences starting 01/10/2024 until 01/09/2025 [facility] Comment on above: 1 Occurrences starti ng 01/10/2024 until 01/09/[address] [facility] Neutrophil percent differential count [facility] Patient Education Kick Counts ED False Labor OB Triage: Return to Hospital or Notify Physician if you Experience: [facility] Work Phone: Platelets [#/volume] in Blood [facility] Red blood cell count [facility] Red cell distributio n width determination [facility] Serologic test for syphilis [facility] End: 01-09-2025 Thyrotropin [Units/volume] in Serum or Plasma TSH with Reflex Free T4 Lab Routine Type 2 diabetes mellitus without complication, unspecified whether fci insulin use (HCC) 1 Occurrences starting 01/10/2024 until 01/09/2025 [facility] Work Phone: Comment on above: 1 Occurrences starti ng 01/10/2024 until 01/09/2025 End: 10-07-2021 TSH Qn TSH with Reflex Free T4 Lab Routine Anxiety and depression 1 Occurrences starting 10/07/2020 until 10/07/2021 [facility] Comment on above: 1 Occurrences starti ng 10/07/2020 until 10/07/2021 TSH Qn TSH with Reflex Free T4 Lab Routine Anxiety and depression 10/07/2020 10:04 AM EST [facility] Ultrasound scan for growth [facility] Immunizations Immunization Date Immunization Notes Care Provider César noe 02-12-2025 tetanus toxoid, redu bev diphtheria toxoid, and acellular pertussis vaccine, adsorbed No Primary Care Physician [facility] 03-31-2021 tetanus toxoid, redu bev diphtheria toxoid, and acellular pertussis vaccine, adsorbed No Primary Care Physician [facility] Payers Date Payer Category Payer Self-pay 2020 [facility] ALEJANDRO PRICE UE/PREF/HMO/PPO [id number] 2020 Unknown ANTHEM ANTHEM BLUE/PREF/HMO/PPO [id number] 2020-Present [id number]. [id number] 2020 Unknown [id number]. 1.13.385.2. 7.3.931950.315 2020 Unknown [id number] 2018 Unknown ANTHEM ANTHEM HM O PPO POS xxxxxxxxxxxx 2018-Present [id number]. 7.3.863645.315 1991 Unknown [id number] 2.840.1.638755.3.579.2. 903 1991 Unknown [id number] 09.17.830.1.884041.3.579.2. 479 1991 Unknown [id number] 2.0.1.406748.3.579.2. 479 1991 Unknown [id number] 20.1.191323.3.579.2. 479 1991 Unknown [id number] 2.16840.1.231651.3.579.2. 479 1991 Unknown [id number] 2.16840.1.734099.3.579.2. 903 1991 Unknown [id number] 2.16840.1.178832.3.579.2. 903 Unknown [id number] 2.16840.1.922159.3.579.2. 462 Unknown [id number] 2.16.840.1.160142.3.579.2. 462 Unknown [id number] 2.16.840.1.652553.3.579.2. 462 Unknown [id number] 2.16.840.1.247389.3.579.2. 462 Unknown [id number] 2.16.840.1.670544.3.579.2. 462 Unknown [id number] 2.16.840.1.944318.3.579.2. 462 Unknown [id number] 2.16.840.1.560705.3.579.2. 462 Unknown [id number] 2..840.1.322057.3.579.2. 462 Unknown [id number] 2..840.1.000435.3.579.2. 462 Unknown [id number] 2.840.1.473004.3.579.2. 462 Unknown [id number] 2.840.1.838555.3.579.2. 462 Unknown [id number] 2..840.1.858501.3.579.2. 462 Unknown [id number] 2..840.1.014392.3.579.2. 462 Unknown [id number] 2.16840.1.574274.3.579.2. 462 Unknown [id number] 2.840.1.001172.3.579.2. 462 Unknown [id number] 2.16.840.1.797923.3.579.2. 462 Unknown [id number] 2.16.840.1.863600.3.579.2. 462 Unknown [id number] 2.16.840.1.589013.3.579.2. 462 Unknown [id number] 2.16.840.1.007947.3.579.2. 462 Unknown [id number] 2.16840.1.646156.3.579.2. 462 Unknown [id number] 2.16.840.1.270923.3.579.2. 462 Unknown [id number] 2.16.840.1.376047.3.579.2. 462 Social History Date Type Detail Facility Start: 11-01-2017 End: 09-08-2024 Tobacco smoking status NYIS Never smoker [facility] Start: 1990 Sex Assigned At Not on file [facility] Start: 10-07-2020 End: 12-23-2021 Tobacco use and exposure Never used [facility] Start: 10-07-2020 End: 03-02-2025 Alcohol intake Ex-drinker (finding) [facility] Start: 10-07-2020 End: 10-24-2020 History SDOH Social Connections Get Together 2 [facility] Start: 10-07-2020 End: 10-24-2020 History SDOH Financial 5 [facility] Start: 10-07-2020 End: 10-24-2020 History SDOH Food Worry 1 [facility] Start: 12-13-2021 End: 12-22-2022 Exposure to SARS-CoV-2 (event) Not sure [facility] Start: 10-31-2020 History SDOH Physical Activity DPW 7 [facility] Start: 10-31-2020 History SDOH Physical Activity MPS 3 [facility] Start: 10-31-2020 History SDOH Education 17 [facility] Start: 12-23-2021 End: 03-02-2025 Cigarette pack-years [facility] Start: 10-31-2020 End: 03-02-2025 Humiliation, Afraid, Rape, and Kick questionnaire [HARK] [facility] Within the last year , have you been afraid of your partner or ex-partner? No [facility] Frequency of Communication with Friends and Family Not on file [facility] Do you feel stress - tense, restless, nervous, or anxious, or unable to sleep at night because your mind is troubled all the time - these days [OSQ] Only a little [facility] (I/We) worried wheth er (my/our) food would run out before (I/we) got money to buy more. Never true [facility] Start: 10-07-2020 Gender identity Identifies as female gender (finding) [facility] Start: 10-07-2020 Sexual orientation Heterosexual (finding) [facility] Start: 06-09-2023 Alcohol intake Current non-drinker of alcohol (finding) [facility] Start: 10-07-2024 Sex Female (finding) [facility] Start: 1990 Sex Assigned At Female [facility] Start: 08-08-2024 [facility] Medical Equipment Procedure Code Equipment Code Equipment Origin al Text Equipment Identifier Dates by Miscellaneous route daily Once daily every morning before breakfast. . [id number] Start: 10-08-2020 End: 01-06-2021 1 Lancet by Miscellaneous route daily . [id number] Start: 10-08-2020 10 Units by Miscellaneous route daily . [id number] Start: 10-11-2020 End: 01-09-2021 Inject 1 each un jeannette the skin daily . [id number] Start: 01-27-2021 Inject 1 each un jeannette the skin daily . [id number] Start: 09-22-2022 Pen Needle, Diab etic (Bd Ultra-Fine Kiah Pen Needle) 32 gauge x 5/32 needle Start: 09-25-2024 Blood Sugar Diag nostic strip Start: 11-14-2020 End: 08-07-2021 Lancets [facility] Start: 11-14-2020 End: 08-07-2021 Pen Needle, Diab etic (Bd Ultra-Fine Kiah Pen Needle) 32 gauge x 5/32 needle Start: 11-14-2020 End: 08-07-2021 Pen Needle, Diab etic 29 gauge x 1/2 needle Start: 11-14-2020 End: 08-07-2021 Pen Needle, Diab etic (Bd Ultra-Fine Kiah Pen Needle) 32 gauge x 5/32 needle Start: 09-25-2024 Blood Sugar Diag nostic strip Start: 11-14-2020 End: 08-07-2021 Lancets [facility] Start: 11-14-2020 End: 08-07-2021 Pen Needle, Diab etic (Bd Ultra-Fine Kiah Pen Needle) 32 gauge x 5/32 needle Start: 11-14-2020 End: 08-07-2021 Pen Needle, Diab etic 29 gauge x 1/2 needle Start: 11-14-2020 End: 08-07-2021 Pen Needle, Diab etic (Bd Ultra-Fine Kiah Pen Needle) 32 gauge x 5/32 needle Start: 09-25-2024 Blood Sugar Diag nostic strip Start: 11-14-2020 End: 08-07-2021 Lancets misc Start: 11-14-2020 End: 08-07-2021 Pen Needle, Diab etic (Bd Ultra-Fine Kiah Pen Needle) 32 gauge x 5/32 needle Start: 11-14-2020 End: 08-07-2021 Pen Needle, Diab etic 29 gauge x 1/2 needle Start: 11-14-2020 End: 08-07-2021 Pen Needle, Diab etic (Bd Ultra-Fine Kiah Pen Needle) 32 gauge x 5/32 needle Start: 09-25-2024 Blood Sugar Diag nostic strip Start: 11-14-2020 End: 08-07-2021 Lancets misc Start: 11-14-2020 End: 08-07-2021 Pen Needle, Diab etic (Bd Ultra-Fine Kiah Pen Needle) 32 gauge x 5/32 needle Start: 11-14-2020 End: 08-07-2021 Pen Needle, Diab etic 29 gauge x 1/2 needle Start: 11-14-2020 End: 08-07-2021 Pen Needle, Diab etic (Bd Ultra-Fine Kiah Pen Needle) 32 gauge x 5/32 needle Start: 09-25-2024 Blood Sugar Diag nostic strip Start: 11-14-2020 End: 08-07-2021 Lancets misc Start: 11-14-2020 End: 08-07-2021 Pen Needle, Diab etic (Bd Ultra-Fine Kiah Pen Needle) 32 gauge x 5/32 needle Start: 11-14-2020 End: 08-07-2021 Pen Needle, Diab etic 29 gauge x 1/2 needle Start: 11-14-2020 End: 08-07-2021 Pen Needle, Diab etic (Bd Ultra-Fine Kiah Pen Needle) 32 gauge x 5/32 needle Start: 09-25-2024 Blood Sugar Diag nostic strip Start: 11-14-2020 End: 08-07-2021 Lancets misc Start: 11-14-2020 End: 08-07-2021 Pen Needle, Diab etic (Bd Ultra-Fine Kiah Pen Needle) 32 gauge x 5/32 needle Start: 11-14-2020 End: 08-07-2021 Pen Needle, Diab etic 29 gauge x 1/2 needle Start: 11-14-2020 End: 08-07-2021 Pen Needle, Diab etic (Bd Ultra-Fine Kiah Pen Needle) 32 gauge x 5/32 needle Start: 09-25-2024 Blood Sugar Diag nostic strip Start: 11-14-2020 End: 08-07-2021 Lancets misc Start: 11-14-2020 End: 08-07-2021 Pen Needle, Diab etic (Bd Ultra-Fine Kiah Pen Needle) 32 gauge x 5/32 needle Start: 11-14-2020 End: 08-07-2021 Pen Needle, Diab etic 29 gauge x 1/2 needle Start: 11-14-2020 End: 08-07-2021 Pen Needle, Diab etic (Bd Ultra-Fine Kiah Pen Needle) 32 gauge x 5/32 needle Start: 09-25-2024 Blood Sugar Diag nostic strip Start: 11-14-2020 End: 08-07-2021 Lancets misc Start: 11-14-2020 End: 08-07-2021 Pen Needle, Diab etic (Bd Ultra-Fine Kiah Pen Needle) 32 gauge x 5/32 needle Start: 11-14-2020 End: 08-07-2021 Pen Needle, Diab etic 29 gauge x 1/2 needle Start: 11-14-2020 End: 08-07-2021 Pen Needle, Diab etic (Bd Ultra-Fine Kiah Pen Needle) 32 gauge x 5/32 needle Start: 09-25-2024 Blood Sugar Diag nostic strip Start: 11-14-2020 End: 08-07-2021 Lancets misc Start: 11-14-2020 End: 08-07-2021 Pen Needle, Diab etic (Bd Ultra-Fine Kiah Pen Needle) 32 gauge x 5/32 needle Start: 11-14-2020 End: 08-07-2021 Pen Needle, Diab etic 29 gauge x 1/2 needle Start: 11-14-2020 End: 08-07-2021 Pen Needle, Diab etic (Bd Ultra-Fine Kiah Pen Needle) 32 gauge x 5/32 needle Start: 09-25-2024 Blood Sugar Diag nostic strip Start: 11-14-2020 End: 08-07-2021 Lancets misc Start: 11-14-2020 End: 08-07-2021 Pen Needle, Diab etic (Bd Ultra-Fine Kiah Pen Needle) 32 gauge x 5/32 needle Start: 11-14-2020 End: 08-07-2021 Pen Needle, Diab etic 29 gauge x 1/2 needle Start: 11-14-2020 End: 08-07-2021 Pen Needle, Diab etic (Bd Ultra-Fine Kiah Pen Needle) 32 gauge x 5/32 needle Start: 09-25-2024 Blood Sugar Diag nostic strip Start: 11-14-2020 End: 08-07-2021 Lancets misc Start: 11-14-2020 End: 08-07-2021 Pen Needle, Diab etic (Bd Ultra-Fine Kiah Pen Needle) 32 gauge x 5/32 needle Start: 11-14-2020 End: 08-07-2021 Pen Needle, Diab etic 29 gauge x 1/2 needle Start: 11-14-2020 End: 08-07-2021 Pen Needle, Diab etic (Bd Ultra-Fine Kiah Pen Needle) 32 gauge x 5/32 needle Start: 09-25-2024 Blood Sugar Diag nostic strip Start: 11-14-2020 End: 08-07-2021 Lancets misc Start: 11-14-2020 End: 08-07-2021 Pen Needle, Diab etic (Bd Ultra-Fine Kiah Pen Needle) 32 gauge x 5/32 needle Start: 11-14-2020 End: 08-07-2021 Pen Needle, Diab etic 29 gauge x 1/2 needle Start: 11-14-2020 End: 08-07-2021 Pen Needle, Diab etic (Bd Ultra-Fine Kiah Pen Needle) 32 gauge x 5/32 needle Start: 09-25-2024 Blood Sugar Diag nostic strip Start: 11-14-2020 End: 08-07-2021 Lancets misc Start: 11-14-2020 End: 08-07-2021 Pen Needle, Diab etic (Bd Ultra-Fine Kiah Pen Needle) 32 gauge x 5/32 needle Start: 11-14-2020 End: 08-07-2021 Pen Needle, Diab etic 29 gauge x 1/2 needle Start: 11-14-2020 End: 08-07-2021 Pen Needle, Diab etic (Bd Ultra-Fine Kiah Pen Needle) 32 gauge x 5/32 needle Start: 09-25-2024 Blood Sugar Diag nostic strip Start: 11-14-2020 End: 08-07-2021 Lancets misc Start: 11-14-2020 End: 08-07-2021 Pen Needle, Diab etic (Bd Ultra-Fine Kiah Pen Needle) 32 gauge x 5/32 needle Start: 11-14-2020 End: 08-07-2021 Pen Needle, Diab etic 29 gauge x 1/2 needle Start: 11-14-2020 End: 08-07-2021 Goals Date Patient Goal Desired Activity /State Personal health goal Comment on above: Formatting of this n ote might be different from the original. Eating foods low in salt and saturated fats will help maintain normal blood pressure levels. Personal health goal Comment on above: Eating foods low in salt and saturated fats will help maintain normal blood pressure levels. Formatting of this n ote might be different from the original. Eating foods low in salt and saturated fats will help maintain normal blood pressure levels. Clinical Notes 11-25-2020 to 03-21-2025 Note Date & Type Note Facility 03-21-2025 Radiology Diagnostic study note [facility] Imaging Services [address] [place] [address] OB Biophysical Prof W/O NST MR#: [id number] Acct: [id number] Name: TASIA ALMAGUER Rep #: [id number] : 1990 F 34 From: Chidi Shepherd MD PCP: ZITA RANDOLPH MD Status: REG CLI Study:OB Biophysical Prof W/O NST Date of Exa m: 03/20/25 Exam# [id number] Ordering Dr: Mae Waller MD PROCEDURE: OB BIOPHYSICAL PROF W/O NST 03/20/2025 REASON FOR EXAM: WELL BEING TECHNIQUE: OB BIOPHYSICAL PROF W/O NST COMPARISON: March 16, 2025. FINDINGS Number: 1 Position: Transverse lie left Placental Position: Posterior and not low-lying Placental Abnormalities: No evidence of previa. ESTIMATED GESTATIONAL AGE: Baseline: 34 weeks and 0 days ESTIMATED DATE OF DELIVERY: Baseline: May 01, 2025 BIOPHYSICAL ASSESSMENT: Amniotic Fluid Volume: 6.6 cm Amniotic Fluid Index: 13.3 cm (8-24 cm normal range) Cardiac Motion: 140 beats per minute (average) Trunk and Limb Motion: Present. Biophysical profile: Breathing movements: 2 Gross body movements: 2 tone: 2 Amniotic fluid volume: 2 Total score: 8/8 US/OB Biophysical Prof W/O NST IMPRESSION: Normal biophysical profile with a score of 8/8 Reading Location: [facility] CC: ZITA RANDOLPH MD; Dr. Mae Reeves MD ~ Program Research Specialist: Signed [facility] 03-14-2025 Radiology Diagnostic study note [facility] Imaging Services [address] [place] [address] [id number] OB Biophysical Prof W/O NST MR#: [id number] Acct: [id number] Name: TASIA ALMAGUER Rep #: [id number] : 1990 F 34 From: Chidi Shepherd MD PCP: Care Physician,No Primary Status: REG CLI Study:OB Biophysical Prof W/O NST Date of Exa m: 03/13/25 Exam# [id number] Ordering Dr: Mae Waller MD PROCEDURE: OB BIOPHYSICAL PROF W/O NST 03/13/2025 REASON FOR EXAM: WELL BEING TECHNIQUE: OB BIOPHYSICAL PROF W/O NST COMPARISON: March 06, 2025. FINDINGS Number: 1 Position: Transverse lie left Placental Position: Posterior and not low-lying Placental Abnormalities: No evidence of previa. ESTIMATED GESTATIONAL AGE: Baseline: 33 weeks and 0 days ESTIMATED DATE OF DELIVERY: Baseline: May 01, 2025. BIOPHYSICAL ASSESSMENT: Amniotic Fluid Volume: 5 cm. Amniotic Fluid Index: 15.7 cm (8-24 cm normal range) Cardiac Motion: 147 beats per minute (average) Trunk and Limb Motion: Present. MATERNAL ANATOMY: Adnexa: Neither maternal ovary is successfully identified. Biophysical profile: Breathing movements: 2 Gross body movements: 2 tone: 2 Amniotic fluid volume: 2 Total score: 8/8 US/OB Biophysical Prof W/O NST IMPRESSION: Normal biophysical profile. Reading Location: [id number] CC: Dr. Mae Reeves MD; No Primary Care Physician ~ Program Research Specialist: Signed [facility] 03-09-2025 Progress note [facility] 03-09-2025 Progress note Note Date/Time March 09, 2025 2:31pm [facility] [address], [address] [place] [address] OFFICE VISIT Date of Service: 03/09/25 MR#: [id number] Acct: [id number] Name: TASIA ALMAGUER Rep # : [id number] : 1990 Provider: CLAUDIO Xiong Age/Sex: 34/F Location[place] [facility] [place]: Signed Intake Vital Signs 01/17/25 15:47 02/26/25 13:25 03/09/25 13:43 Height 5 ft 7 in 5 ft 7 in 5 ft 7 in Weight: 286 lb 8 oz 288 lb 2 oz BMI 44.9 45.1 BP 133/79 H 133/86 H Intake Visit Reasons: 32 WK OB/NST Chief Complaint: 32wk ob/nst Director Of Sustainability Programs Required: No Is patient in pain?: No Allergies No Known Allergies Allergy (Verified 03/09/25 13:42) Medications ?Medication ?Instructions ?Recorded ?Confirmed ?Type multivitamin no.47-iron fum 27 1 cap PO DAILY Check wi th primary 11/05/20 03/09/25 History mg-folate no.1 1 mg-dha 300 mg doctor capsule (PNV-DHA) sertraline 50 mg tablet (Zoloft) 50 mg PO DAILY Check with primary 11/05/20 03/09/25 History doctor metformin 500 mg tablet 500 mg PO BID [facility] 09/08/24 03/09/25 History doctor blood-glucose sensor (FreeStyle #6 ea 09/25/24 5 Rx Vamsi 3 Plus Sensor device) pen needle, diabetic 32 gauge x #150 ea 09/25/2403/09 Rx 5/32 (BD Ultra-Fine Kiah Pen Needle) labetalol 200 mg tablet 200 mg PO TID 30 days #90 ta bs 10/23/24 03/09/25 Rx insulin lispro 100 unit/mL 30 unit (0.3 mL) subcut TID #30 mL 11/20/24 03/09/25 Rx subcutaneous pen insulin glargine 100 unit/mL (3 100 unit subcut DAILY #30 mL 01/01/25 03/09/25 Rx mL) subcutaneous pen (Lantus Solostar U-100 Insulin) Last Menstrual Period: 07/25/24 : No PFSH PFSH Medical History 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 Diabetes mellitus History of tetanus, diphtheria, and acellular pertussis booster vaccination (Tdap) Surgical History History of tonsillectomy and adenoidectomy Family History Mother Diabetes type 2 Hypertension Father Hyperlipemia Sister Diabetes type 2 Grandmother Diabetes type 2 Social History adopted: No household members: spouse, children and other details: Has custody of 2 neices housing: house number of children: 1 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 occupational exposures/hazards: No pets and animals: No history of recent travel: No sexually active: Yes Smoking Status: Never smoker second hand exposure: No alcohol intake: never substance use type: does not use diet: diabetic well-balanced diet: daily or most days caffeine: No eating out: rarely or never during the past year weight has: remained stable what type of physical activity do you participate in: walking frequency: 3-4 times per week duration: 15-30 minutes/day geoffrey/samaritan: None seatbelt use: always do you feel safe at home: Yes additional social history: : Sldae Melchor Andriy Michael Madden History 2 Elective abortions Hx Para 1 Spontaneous abortions 0 Hx # Term Pregnancies Ectopic pregnancies Hx # Pregnancies Multiple births # of living children 1 Past Pregnancies Del. Date Name GA/Weeks Outcome Route Bth Weight Gen Labor Lgth Anesthesia Del Locatn Provider FOB 06/17/21 Ernie 39 live - full term 8lbs 3oz Male ep idural [facility] [place] Delivery Date: 06/17/21 Last Updated by: Xuan Belcher GDM; mild uterine atony; 1st degree laceration HPI 32 WK OB/NST Details: TASIA ALMAGUER is a 34 year old who presents for routine OB visit. OB Visit GIANFRANCO Calculator Estimated Delivery Date Method Current WG Current Estimate 05/01/25 LMP (Certain) 32w 3d Other Estimates 05/03/25 Ultrasound #1 32w 1d Expected Delivery Route/Plan Labor Preferences- CB/BF classes: no labor support person: Slade labor intervention preferences: [] pain management options preferred: epidural cut cord/dad catch: cord : bottle PP control planned: discussed discussed possible routes of delivery and associated risks: [] special requests: [] Specific Issue/Plans Covid status: [] Flu vaccine: [] Tdap vaccine: given Rhogam: NA LARC form signed: yes Problem list reviewed and updated with the most current plan of care details and appropriate orders placed. Relevant counseling for the gestational age provided. Continue routine care and follow up unless otherwise noted in visit notes/problem list details Initial Weight: Not Recorded Date -?-?-?-?-?-?-?-?-?-?-?-?- EGA Weight BP Urine Prot -?-?-?-?-?-?-?-?-?-?-?-?- Glucose FHR FuHt Pres Dilation -?-?-?-?-?-?-?-?-?-?-?-?- Effaced St Visit Note 09/25/24 -?-?-?-?-?-?-?-?-?-?-?-?- 8w 6d 260 lb 2 oz 146/93 -?-?-?-?-?-?-?-?-?-?-?-?- 186 -?-?-?-?-?-?-?-?-?-?-?-?- JV- CRL consiste nt with LMP. Declines NIPT. has DM and htn. starting labetalol now. will see Dr. Dunne this week. 10/23/24 -?-?-?-?-?-?-?-?-?-?-?-?- 12w 6d 266 lb 6 oz 141/92 Nega tive -?-?-?-?-?-?-?-?-?-?-?-?- Negative -?-?-?-?-?-?-?-?-?-?-?-?- JV- moveme nt seen on ultrasound but due to obesity and extreme movement of the fetus, unable to get the heart tones. Increasing labetalol to 200 tid. pt to continue seeing MFM and Dr. Dunne. 11/20/24 -?-?-?-?-?-?-?-?-?-?-?-?- 16w 6d 270 lb 129/81 Negative -?-?-?-?-?-?-?-?-?-?-?-?- Negative 150 -?-?-?-?-?-?-?-?-?-?-?-?- KW- no vb/crampi ng. + fm, US scheduled 12/05. doing well with BP meds. BS reviewed. accepts AFP screening today. 12/18/24 -?-?-?-?-?-?-?-?-?-?-?-?- 20w 6d 279 lb 4 oz 122/82 Trac e -?-?-?-?-?-?-?-?-?-?-?-?- Negative 156 -?-?-?-?-?-?-?-?-?-?-?-?- JV- low lying pl acenta and pelvic rest discussed. rpt scan coming up for anatomy structures not seen. glucose levels normal. still on labetalol and baby asa 01/17/25 -?-?-?-?-?-?-?-?-?-?-?-?- 25w 1d 277 lb 118/78 Negative -?-?-?-?-?-?-?-?-?-?-?-?- Negative 145 25 -?-?-?-?-?-?-?-?-?-?-?-?- SM- no vb lof go od fm no regular ctx BS controlled bps controlled discussed testing and 38 weeks delivery planning 02/12/25 -?-?-?-?-?-?-?-?-?-?-?-?- 28w 6d 287 lb 122/82 Negative -?-?-?-?-?-?-?-?-?-?-?-?- Negative 142 29 -?-?-?-?-?-?-?-?-?-?-?-?- MH-No VB, LOF. G ood FM. 28 wk labs. BS and HTN controlled. Larc, tdap. 02/26/25 -?-?-?-?-?-?-?-?-?-?-?-?- 30w 6d 286 lb 8 oz 133/79 Nega tive -?-?-?-?-?-?-?-?-?-?-?-?- Negative 145 31 -?-?-?-?-?-?-?-?-?-?-?-?- KW- no vb/lof/ct x. good fm. BPPs and NSTs scheduled. Has noticed increased fatigue over the last couple weeks but also is having elevated PP blood sugars-Fastings still under 95. Will message Dr Dunne for adjustments to insulin. 03/09/25 -?-?-?-?-?-?-?-?-?-?-?-?- 32w 3d 288 lb 2 oz 133/86 Nega tive -?-?-?-?-?-?-?-?-?-?-?-?- Negative 135 -?-?-?-?-?-?-?-?-?-?-?-?- KW- NST reactive . no vb/lof/ctx. good fm ACOG First Trimester First Trimester: Desire for , Alcohol, Tobacco Cessation, Illicit/Recreational Drug/Substance Use, Intimate Partner Violence, Barriers to care, Unstable Housing, Communication Barriers, Environmental/Work Hazards, Anticipated Course of Care, Toxoplasmosis Precations, Use of Any medications, Sexual activity, Exercise, Dental Care, Sauna/Hot tub use, Seat Belt use, Childbirth classes/Hospital facilities, Travel, Indications for Ultrasound and Screening for Aneuploidy; Discussed Second Trimester Second Trimester: Signs and Symptoms of Labor, Selecting a care provider, Reproductive Life Planning & Contreception, Care Planning, Depression/Anxiety and Intimate Partner Violence; Discussed Tobacco Cessation Third Trimester Third Trimester: Pain Management Plans, Labor support person(s), Immediate Larc, Circumcision preference, Signs and Symptoms of Preeclampsia, Feeding No , [place] Education and Family Medical Leave or Disability Forms ROS Const Reports system reviewed and no additional complaints, except as documented Eyes Reports system reviewed and no additional complaints, except as documented ENT Reports system reviewed and no additional complaints, except as documented Card Reports system reviewed and no additional complaints, except as documented Resp Reports system reviewed and no additional complaints, except as documented GI Reports system reviewed and no additional complaints, except as documented, Denies nausea and Denies vomiting Reports system reviewed and no additional complaints, except as documented Musc Reports system reviewed and no additional complaints, except as documented Skin/Breast Reports system reviewed and no additional complaints, except as documented Neuro Yes system reviewed and no additional complaints, except as documented Psych Reports system reviewed and no additional complaints, except as documented Endo Reports system reviewed and no additional complaints, except as documented Cameron/Lymph Reports system reviewed and no additional complaints, except as documented Aller/Immun Reports system reviewed and no additional complaints, except as documented Exam Const General: cooperative, healthy appearing and no acute distress Orientation: alert, awake and oriented x3 Neck Neck: normal visual inspection and full ROM Resp Effort & Inspection: normal respiratory effort, able to speak in complete sentences and symmetric chest movement GI Inspection: normal to inspection Palpation: soft and other Other: gravid Skin General: no rashes or lesions noted Neuro General: patient alert, patient awake and patient oriented x3 Cognition: normal cognition Speech: speech normal Gait: normal gait Motor: muscle tone normal throughout Extrem General: normal to inspection and full ROM Psych Appearance: grossly normal Mental Status: mental status grossly normal Mood: congruent mood Affect: normal affect Speech and Movement: speech and movement normal Attitude: cooperative Thought Process: normal Thought Content: normal Judgment: judgment good Office Procedures Non-stress Test Non-Stress Test Indications for Monitoring: Yes diabetes and Yes Preeclampsia Heart Rate Baseline: 135 Heart Rate Variability: moderate Movement: Present Heart Rate Accelerations: Present Decelerations: Absent Contractions: Absent Impression: Yes Reactive Non-Stress Test Results POC Urinalysis 2 Dip (Clinic) Office Urine Glucose Negative Last Edit by Mikala Castano on 03/09/25 14:00 Office Urine Protein Negative Last Edit by Mikala Castano on 03/09/25 14:00 Coding Level of Care Code OB Routine Diagnoses Pre-existing type 2 diabetes mellitus during in second trimester O24.112 Diabetes in type: pre-existing, type 2 Trimester: second trimester Group B Streptococcus urinary tract infection affecting in second trimester O23.42; B95.1 Trimester: second trimester Obesity affecting in second trimester, unspecified obesity type O99.212 Obesity type affecting : unspecified obesity Trimester: second trimester Family history of chromosomal abnormality Z82.79 Supervision of high risk in second trimester O09.92 Trimester: second trimester Primary hypertension I10 Hypertension type: primary hypertension 32 weeks gestation of Z3A.32 Weeks of gestation: 32 weeks Type 2 diabetes mellitus without complication, without long-term current use of insulin E11.9 Diabetes mellitus complication status: without complication Diabetes mellitus fci insulin use: without fci use Diabetes mellitus type: type 2 Anxiety F41.9 CPT Codes Non-Stress Test (52501) Assessment and Plan Assessment and Plan (1) Diabetes in : Status: Chronic Qualifiers: Diabetes in type: pre-existing, type 2 Trimester: second trimester Qualified Code(s): O24.112 - Pre-existing type 2 diabetes mellitus, in , second trimester Comment: class B diabetes. growth US q 4 weeks. twice weekly testing 32 on with weekly bpp and weekly NST and deliver at 38 (2) GBS (group B streptococcus) UTI complicating : Status: Acute Qualifiers: Trimester: second trimester Qualified Code(s): O23.42 - Unspecified infection of urinary tract in , second trimester; B95.1 - Streptococcus, group B, as the cause of diseases classified elsewhere (3) Obesity affecting : Status: Acute Qualifiers: Obesity type affecting : unspecified obesity Trimester: second trimester Qualified Code(s): O99.212 - Obesity complicating , second trimester Comment: unable to get heart views. nl echo. BMI 39.2; HgBA1C ordered w/NOB (4) Family history of chromosomal abnormality: Status: Acute Comment: Slade's brother has Trisomy 21. Declines genetic testing. (5) Supervision of high-risk : Status: Acute Qualifiers: Trimester: second trimester Qualified Code(s): O09.92 - Supervision of high risk , unspecified, second trimester Comment: PRR , GIANFRANCO 05/01/25, [facility]: Ernie (Has custody of 14yr old twin nieces, Anaconda & Believe), : Slade (6) Hypertension: Status: Chronic Qualifiers: Hypertension type: primary hypertension Qualified Code(s): I10 - Essential (primary) hypertension Comment: Labetalol 200 bid if controlled plan 38 weeks delivery, plan weekly BPP and weekly nst from 32 on (7) : Status: Acute Qualifiers: Weeks of gestation: 32 weeks Qualified Code(s): Z3A.32 - 32 weeks gestation of Comment: Discussed genetic/carrier testing - undecided, neg AFP, nl anatomy (8) Diabetes mellitus: Status: Acute Qualifiers: Diabetes mellitus complication status: without complication Diabetes mellitus fci insulin use: without moth exterminator use Diabetes mellitus type: type 2 Qualified Code(s): E11.9 - Type 2 diabetes mellitus without complications Comment: Type 2 - On Metformin & insulin (9) Anxiety: Status: Acute Comment: Zoloft , encouraged counseling. Stable Orders: Orders POC Urinalysis 2 Dip (Clinic) Today OB NST Today E11.9 - Type 2 diabetes mellitus without complications, I10 - Essential (primary) hypertension, O24.112 - Pre-existing type 2 diabetes mellitus, in , second trimester, O99.212 - Obesity complicating , second trimester Plan Details Additional Comments: ACOG trimester education reviewed and updated. see problem list details for updated plan management information and see below for orders placed at this visit. GA appropriate handout given. 03/09/25 5162 <Electronically signed by Tere sandoval CNM> Date _ Tere Xiong CNM Cosigner Signature: Date (if applicable) CC: ~ [facility] Work Phone: [phone]) 320-178308-08-2025 History of Present illness Narrative* Maddie Washburn MA - 03/09/2025 9:50 AM EDT Request sent to [facility] medical records. endo. Fax#: [phone] [facility] * Zita Randolph MD - 03/02/2025 7:10 AM EDT Images from the original note were not included. Chief Complaint Patient presents with Medication Refill HPI: Tasia Almaguer is a 34 y.o. female presenting for follow-up on diabetes control. PMH of anxiety,hypertension, diabetes and obesity. Anxiety: Has been feeling more anxious lately, always on her edge and irritated by small things. Has also had 1 panic attack when she was on a rafting trip with her . Currently having custody of her 2 nieces for 1 to 2 years which was 1 her anxiety started to become more significant. Denies any concerns for smoking, alcohol or drug use. Has family history of anxiety in her sister. No concern for depression symptoms, sleep disorders, SI or HI. Feeling safe at home. GAD7 score of 21, stared on zoloft last time at 50 mg as well as melatonin for insomnia. Has been doing well with Zoloft, requesting refills today. History of Present Illness Tasia Almaguer is a 34 year old female with diabetes who presents for medication refills and management during . She is currently 31 weeks and receiving care at [facility]. There have been no reported issues with the , and she takes labetalol 200 mg twice a day for blood pressure. She has a history of diabetes and is managed by [facility]. Her last A1c was 5.1 in December, attributed to eating small, frequent meals. She uses Lantus, a long-acting insulin, at 90 units, and Lispro, a short-acting insulin, at 22 units with meals. 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 She is on Zoloft 50 mg daily. She received the TDAP vaccination during . An echocardiogram was performed due to difficulty obtaining heart images, similar to her previous . Socially, she stays at home due to the heat and has a [id number] child. She plans to have an eye exam after delivery and has chosen a inspector shells through [facility] for her new baby. Past Medical History: Diagnosis Date Anxiety Diabetes mellitus (HCC) 2020 Past Surgical History: Procedure Laterality Date ADENOIDECTOMY TONSILLECTOMY Family History Problem Relation Age of Onset Diabetes Mother Hypertension Mother Hyperlipidemia Father Diabetes Sister Asthma Sister Anxiety Sister Diabetes Paternal Grandmother Social History Tobacco Use Smoking status: Never Smokeless tobacco: Never Vaping Use Vaping status: Never Used Substance Use Topics Alcohol use: Not Currently Drug use: Never Review of Systems Physical Exam Constitutional: General: She is not in acute distress. Appearance: She is not ill-appearing. HENT: Head: Normocephalic and atraumatic. Right Ear: Tympanic membrane, ear canal and external ear normal. Left Ear: Tympanic membrane, ear canal and external ear normal. Nose: Nose normal. Mouth/Throat: Mouth: Mucous membranes are moist. Pharynx: Oropharynx is clear. No oropharyngeal exudate or posterior oropharyngeal erythema. Eyes: Extraocular Movements: Extraocular movements intact. Conjunctiva/sclera: Conjunctivae normal. Pupils: Pupils are equal, round, and reactive to light. Cardiovascular: Rate and Rhythm: Normal rate and regular rhythm. Pulses: Normal pulses. Heart sounds: Normal heart sounds. No murmur heard. No gallop. Pulmonary: Effort: Pulmonary effort is normal. Breath sounds: Normal breath sounds. No wheezing, rhonchi or rales. Chest: Chest wall: No tenderness. Abdominal: General: Abdomen is flat. Bowel sounds are normal. There is no distension. Palpations: Abdomen is soft. There is no mass. Tenderness: There is no abdominal tenderness. There is no right CVA tenderness, left CVA tenderness, guarding or rebound. Musculoskeletal: General: No tenderness. Normal range of motion. Cervical back: Normal range of motion and neck supple. No rigidity. No muscular tenderness. Right lower leg: No edema. Left lower leg: No edema. Lymphadenopathy: Cervical: No cervical adenopathy. Skin: General: Skin is warm. Findings: No erythema or rash. Neurological: General: No focal deficit present. Mental Status: She is alert and oriented to person, place, and time. Sensory: No sensory deficit. Motor: No weakness. Gait: Gait normal. Psychiatric: Mood and Affect: Mood normal. Behavior: Behavior normal. Thought Content: Thought content normal. Judgment: Judgment normal. OARRS/NARxCHECK Report Received and Assessed: Date controlled substance agreement signed: No data found Date of last drug screen: Patient's Medications New Prescriptions No medications on file Previous Medications BD KIAH 2ND GEN PEN NEEDLE 32 GAUGE X NDLE Inject 1 each under the skin daily . BLOOD-GLUCOSE METER MISC Once daily every morning before breakfast. . INSULIN LISPRO 100 UNIT/ML INPN 22 (twenty two) Units . LABETALOL (NORMODYNE) 200 MG TABLET Take 1 (one) tablet (200 mg total) by mouth 2 (two) times a day. LANCETS MISC 1 Lancet by Miscellaneous route daily . LANTUS SOLOSTAR U-100 INSULIN 100 UNIT/ML (3 ML) INPN INJECT 90 UNITS SUBCUTANEOUSLY ONCE DAILY METFORMIN (GLUCOPHAGE-XR) 500 MG 24 HR TABLET Take 2 (two) tablets (1,000 mg total) by mouth 2 (two) times a day with breakfast and lunch . VITAMIN WITH CA-IRON-FA 27-1 MG TAB Take 1 (one) tablet by mouth daily . Modified Medications Modified Medication Previous Medication SERTRALINE (ZOLOFT) 50 MG TABLET sertraline (ZOLOFT) 50 MG tablet Take 1 (one) tablet (50 mg total) by mouth daily . Take 1 (one) tablet (50 mg total) by mouth daily. Discontinued Medications DESOGESTREL-ETHINYL ESTRADIOL (APRI) 0.15-0.03 MG PER TABLET Take 1 (one) tablet by mouth daily . INSULIN DEGLUDEC (TRESIBA FLEXTOUCH U-100) 100 UNIT/ML (3 ML) INPN Inject 25 (twenty five) Units under the skin at bedtime . LIRAGLUTIDE (VICTOZA 2-MIGUEL) 0.6 MG/0.1 ML (18 MG/3 ML) PEN Inject 1.2 mg under the skin daily . LOSARTAN (COZAAR) 50 MG TABLET Take 1 (one) tablet (50 mg total) by mouth daily . TIRZEPATIDE (MOUNJARO) 2.5 MG/0.5 ML PEN Inject 0.5 mL under the skin every 7 days . Health Maintenance Due Topic Date Due Urine (micro)albumin/creatinine ratio - Diabetes Never done Diabetic Foot Exam Never done Diabetic Eye Exam Never done HIV Screening Never done Hepatitis C Screening Never done Pneumococcal Vaccine: Ped or At-Risk (1 of 2 - PCV) Never done eGFR - Diabetes 06/25/2022 COVID-19 Vaccine ( season) Never done Wellness Visit 09/27/2024 Assessment & Plan Problem List Items Addressed This Visit Endocrine Diabetes mellitus (HCC) Relevant Medications sertraline (ZOLOFT) 50 MG tablet Cardiovascular and Mediastinum HTN (hypertension) - Primary Other Obesity, morbid, BMI 40.0-49.9 ([facility]) Assessment & Plan , third trimester 31 weeks gestation, stable blood pressure, no concerns on echocardiogram. Discussed RSV vaccination for immunity. - Continue care with OB at [facility]. - Discuss RSV vaccination with OB to provide immunity. - Schedule follow-up 4 months after delivery. Type 2 diabetes mellitus, well controlled in Diabetes well controlled with A1c of 5.1. Managed by endocrinology with Lantus and Lispro. Small frequent meals adopted. - Continue current diabetes management with endocrinology at [facility]. - Obtain records from endocrinology for continuity of care. Gestational hypertension, third trimester Managed with labetalol, stable blood pressure. - Continue labetalol 200 mg twice daily. Anxiety disorder Managed with sertraline 50 mg daily, no issues reported. - Continue sertraline 50 mg daily. - Prescribe sertraline for 90 days and reassess post-delivery. After discussing the use of ambient listening and audio recording in generating medical documentation, the patient verbally consented to use of this technology for today's visit. My ongoing relationship with Tasia Almaguer requires continued responsibility and cognitive effort of being the focal point for all services related to chronic condition(s). Return in about 4 months (around 07/02/2025) for Follow Up. ZITA RANDOLPH MD [facility] [address] [facility] [id number] Dept: [phone] 10/07/2020 9:00 AM 12/23/2021 9:44 AM 03/02/2025 7:08 AM Depression Screening Little interest or pleasure in doing things 0 0 0 Feeling down, depressed, or hopeless 0 0 0 PHQ-2 Total Score 0 0 0 Trouble falling or staying asleep, or sleeping too much 1 0 Feeling tired or having little energy 0 1 Poor appetite or overeating 0 1 Feeling bad about yourself - or that you are a failure or have let yourself or your family down 0 0 Trouble concentrating on things, such as reading the newspaper or watching television 1 0 Moving or speaking so slowly that other people could have noticed. Or the opposite - being so fidgety or restless that you have been moving around a lot more than usual 0 0 Thoughts that you would be better off , or of hurting yourself in some way 0 0 PHQ-9 Total Score 2 2 If you checked off any problems, how difficult have these problems made it for you to do your work,take care of things at home, or get along with other people? Not difficult at all Data saved with a previous flowsheet row definition 03/02/2025 7:08 AM PHQ-9 Review Little interest or pleasure in doing things 0 Feeling down, depressed, or hopeless 0 PHQ-2 Total Score 0 documented in this [id number] Radiology Diagnostic study note [facility] Services [address] [place] [address] OB Biophysical Prof W/O NST MR#: [id number] Acct: [id number] Name: TASIA ALMAGUER Rep #: [id number] : 1990 F 34 From: Chidi Shepherd MD PCP: Care Physician,No Primary Status: REG CLI Study:OB Biophysical Prof W/O NST Date of Exa m: 03/06/25 Exam# [id number] Ordering Dr: Mae Waller MD PROCEDURE: OB BIOPHYSICAL PROF W/O NST 03/06/2025 REASON FOR EXAM: WELL BEING TECHNIQUE: OB BIOPHYSICAL PROF W/O NST COMPARISON: None FINDINGS LMP: July 25 2024 Number: 1 Position: Vertex Placental Position: Posterior and not low-lying Placental Abnormalities: No evidence of previa. ESTIMATED GESTATIONAL AGE: Baseline: 32 weeks and 0 days ESTIMATED DATE OF DELIVERY: Baseline: May 01, 2025 BIOPHYSICAL ASSESSMENT: Amniotic Fluid Volume: 5.4 cm Amniotic Fluid Index: 16.5 cm (8-24 cm normal range) Cardiac Motion: 164 beats per minute (average) Trunk and Limb Motion: Present. MATERNAL ANATOMY: Adnexa: Neither maternal ovary is successfully identified. Biophysical profile: Breathing movements: 2 Gross body movements: 2 tone: 2 Amniotic fluid volume: 2 Total score: 8/8 US/OB Biophysical Prof W/O NST IMPRESSION: Normal biophysical profile. Reading Location: [id number] CC: Dr. Mae Reeves MD; No Primary Care Physician ~ Program Research Specialist: Signed [facility]08-06-2025 Radiology Diagnostic study note [facility] Imaging Services [address] [place] [address] [id number] OB Limited With Biometrics MR#: [id number] Acct: [id number] Name: TASIA ALMAGUER Rep #: [id number] : 1990 F 34 From: Chidi Shepherd MD PCP: Care Physician,No Primary Status: REG CLI Study:OB Limited With Biometrics Date of Exam : 03/06/25 Exam# [id number] Ordering Dr: Mae Waller MD PROCEDURE: OB LIMITED WITH BIOMETRICS 03/06/2025 REASON FOR EXAM: GROWTH TECHNIQUE: OB LIMITED WITH BIOMETRICS COMPARISON: None FINDINGS LMP: July 25, 2024. Number: 1 Position: Vertex Placental Position: Posterior and not low-lying Placental Abnormalities: No evidence of previa. DIMENSIONS: Biparietal Diameter: 7.95 cm: 31 weeks and 6 days: 38 percentile/ Head Circumference: 29.68 cm: 32 weeks and 6 days: 34 percentile/ Abdominal Circumference: 27.26 cm: 31 weeks and 2 days: 29 percentile/ Femur Length: 5.84 cm: 30 weeks and 4 days: 7 percentile/ ESTIMATED WEIGHT: 1732 g plus/-260 g ESTIMATED WEIGHT PERCENTILE (24+ weeks): 20 percentile ESTIMATED GESTATIONAL AGE: Baseline: 32 weeks and 0 days By Ultrasound: 31 weeks and 4 days ESTIMATED DATE OF DELIVERY: Baseline: May 01, 2025 By Ultrasound: May 04, 2024 BIOPHYSICAL ASSESSMENT: Amniotic Fluid Volume: 5.1 cm Amniotic Fluid Index: 17.2 cm (8-24 cm normal range) Cardiac Motion: 145 beats per minute (average) Trunk and Limb Motion: Present. MATERNAL ANATOMY: Adnexa: Neither maternal ovary is successfully identified. US/OB Limited With Biometrics IMPRESSION: Single live intrauterine gestation with a mean gestational age of 31 weeks and 4days. Reading Location: [id number] CC: Dr. Mae Reeves MD; No Primary Care Physician ~ Program Research Specialist: Signed [facility]08-01-2025 Instructions* Patient Instructions* Zita Randolph MD - 03/02/2025 7:22 AM EDT RSV vaccination for mom. Problem List Items Addressed This Visit Endocrine Diabetes mellitus (HCC) Relevant Medications sertraline (ZOLOFT) 50 MG tablet Cardiovascular and Mediastinum HTN (hypertension) - Primary Other Obesity, morbid, BMI 40.0-49.9 (HCC) If any referrals were placed at the time of your visit please allow 2 weeks for processing. If you haven't heard from anyone within 2 weeks please contact my office so we can look into the status of your referral. If you were given any labs today please ensure they are completed according to the directions given. Once labs are completed please allow 1-2 weeks for us to receive the results, review them, and letyou know what steps, if any, are needed next. If you haven't heard from us after that please call to inquire. If labs were ordered to be done PRIOR to your next visit we will discuss the results at the time ofyour office visit. If any procedures or imaging studies were ordered that must be prior authorized please give us 2 weeks to get them approved. Once approved someone should call you to schedule them or give you a date and time that they were scheduled for. If you haven't heard anything within 2 weeks of the office visit please call the office so we can look into their status. Customer Service/Billing Questions: [phone] [employer] Assistance: [phone] or [phone] Financial Assistance: [phone] or [phone] Wednesday 7 am to 5 pm Wednesday 7 am to 5 pm Wednesday 7 am to 5 pm Wednesday 8 am to 2 pm documented in this [id number] Instructions* Patient Instructions* Zita Randolph MD - 03/02/2025 7:22 AM EDT RSV vaccination for mom. Problem List Items Addressed This Visit Endocrine Diabetes mellitus (HCC) Relevant Medications sertraline (ZOLOFT) 50 MG tablet Cardiovascular and Mediastinum HTN (hypertension) - Primary Other Obesity, morbid, BMI 40.0-49.9 (HCC) If any referrals were placed at the time of your visit please allow 2 weeks for processing. If you haven't heard from anyone within 2 weeks please contact my office so we can look into the status of your referral. If you were given any labs today please ensure they are completed according to the directions given. Once labs are completed please allow 1-2 weeks for us to receive the results, review them, and letyou know what steps, if any, are needed next. If you haven't heard from us after that please call to inquire. If labs were ordered to be done PRIOR to your next visit we will discuss the results at the time ofyour office visit. If any procedures or imaging studies were ordered that must be prior authorized please give us 2 weeks to get them approved. Once approved someone should call you to schedule them or give you a date and time that they were scheduled for. If you haven't heard anything within 2 weeks of the office visit please call the office so we can look into their status. Customer Service/Billing Questions: [phone] [employer] Assistance: [phone] or [phone] Financial Assistance: [phone] or [phone] Wednesday 7 am to 5 pm Wednesday 7 am to 5 pm Wednesday closed 7 am to 5 pm Wednesday 8 am to 2 pm documented in this [id number] NoteChief Complaint Patient presents with Medication Refill HPI: Tasia Almaguer is a 34 y.o. female presenting for follow-up on diabetes control. PMH of anxiety, hypertension, diabetes and obesity. Anxiety: Has been feeling more anxious lately, always on her edge and irritated by small things. Has also had 1 panic attack when she was on a rafting trip with her . Currently having custody of her 2 nieces for 1 to 2 years which was 1 her anxiety started to become more significant. Denies any concerns for smoking, alcohol or drug use. Has family history of anxiety in her sister. No concern for depression symptoms, sleep disorders, SI or HI. Feeling safe at home. GAD7 score of 21, stared on zoloft last time at 50 mg as well as melatonin for insomnia. Has been doing well with Zoloft, requesting refills today. History of Present Illness Tasia Almaguer is a 34 year old female with diabetes who presents for medication refills and management during . She is currently 31 weeks and receiving care at [facility]. There have been no reported issues with the , and she takes labetalol 200 mg twice a day for blood pressure. She has a history of diabetes and is managed by [facility] endocrinology. Her last A1c was 5.1 in December, attributed to eating small, frequent meals. She uses Lantus, a long-acting insulin, at 90 units, and Lispro, a short-acting insulin, at 22 units with meals. 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 She is on Zoloft 50 mg daily. She received the TDAP vaccination during . An echocardiogram was performed due to difficulty obtaining heart images, similar to her previous . Socially, she stays at home due to the heat and has a bchqm-rqgj-zbk child. She plans to have an eye exam after delivery and has chosen a inspector shells through [facility] for her new baby. Past Medical History: Diagnosis Date Anxiety Diabetes mellitus (HCC) 2020 Past Surgical History: Procedure Laterality Date ADENOIDECTOMY TONSILLECTOMY Family History Problem Relation Age of Onset Diabetes Mother Hypertension Mother Hyperlipidemia Father Diabetes Sister Asthma Sister Anxiety Sister Diabetes Paternal Grandmother Social History Tobacco Use Smoking status: Never Smokeless tobacco: Never Vaping Use Vaping status: Never Used Substance Use Topics Alcohol use: Not Currently Drug use: Never Review of Systems Physical Exam Constitutional: General: She is not in acute distress. Appearance: She is not ill-appearing. HENT: Head: Normocephalic and atraumatic. Right Ear: Tympanic membrane, ear canal and external ear normal. Left Ear: Tympanic membrane, ear canal and external ear normal. Nose: Nose normal. Mouth/Throat: Mouth: Mucous membranes are moist. Pharynx: Oropharynx is clear. No oropharyngeal exudate or posterior oropharyngeal erythema. Eyes: Extraocular Movements: Extraocular movements intact. Conjunctiva/sclera: Conjunctivae normal. Pupils: Pupils are equal, round, and reactive to light. Cardiovascular: Rate and Rhythm: Normal rate and regular rhythm. Pulses: Normal pulses. Heart sounds: Normal heart sounds. No murmur heard. No gallop. Pulmonary: Effort: Pulmonary effort is normal. Breath sounds: Normal breath sounds. No wheezing, rhonchi or rales. Chest: Chest wall: No tenderness. Abdominal: General: Abdomen is flat. Bowel sounds are normal. There is no distension. Palpations: Abdomen is soft. There is no mass. Tenderness: There is no abdominal tenderness. There is no right CVA tenderness, left CVA tenderness, guarding or rebound. Musculoskeletal: General: No tenderness. Normal range of motion. Cervical back: Normal range of motion and neck supple. No rigidity. No muscular tenderness. Right lower leg: No edema. Left lower leg: No edema. Lymphadenopathy: Cervical: No cervical adenopathy. Skin: General: Skin is warm. Findings: No erythema or rash. Neurological: General: No focal deficit present. Mental Status: She is alert and oriented to person, place, and time. Sensory: No sensory deficit. Motor: No weakness. Gait: Gait normal. Psychiatric: Mood and Affect: Mood normal. Behavior: Behavior normal. Thought Content: Thought content normal. Judgment: Judgment normal. OARRS/NARxCHECK Report Received and Assessed: Date controlled substance agreement signed: No data found Date of last drug screen: Patient's Medications New Prescriptions No medications on file Previous Medications BD KIAH 2ND GEN PEN NEEDLE 32 GAUGE X /32 NDLE Inject 1 each under the skin daily . BLOOD-GLUCOSE METER MISC Once daily every morning before breakfast. . INSULIN LISPRO 100 UNIT/ML INPN 22 (twenty two) Units . LABETALOL (NORMODYNE) 200 MG TABLET Take 1 (one) tablet (200 mg total) by mouth 2 (two) times a day . LANCETS (more content not included)...[facility]08-01-2025 History of Present illness Narrative* Zita Randolph MD - 03/02/2025 7:10 AM EDT Images from the original note were not included. Chief Complaint Patient presents with Medication Refill HPI: Tasia Almaguer is a 34 y.o. female presenting for follow-up on diabetes control. PMH of anxiety,hypertension, diabetes and obesity. Anxiety: Has been feeling more anxious lately, always on her edge and irritated by small things. Has also had 1 panic attack when she was on a rafting trip with her . Currently having custody of her 2 nieces for 1 to 2 years which was 1 her anxiety started to become more significant. Denies any concerns for smoking, alcohol or drug use. Has family history of anxiety in her sister. No concern for depression symptoms, sleep disorders, SI or HI. Feeling safe at home. GAD7 score of 21, stared on zoloft last time at 50 mg as well as melatonin for insomnia. Has been doing well with Zoloft, requesting refills today. History of Present Illness Tasia Almaguer is a 34 year old female with diabetes who presents for medication refills and management during . She is currently 31 weeks and receiving care at [facility]. There have been no reported issues with the , and she takes labetalol 200 mg twice a day for blood pressure. She has a history of diabetes and is managed by [facility] endocrinology. Her last A1c was 5.1 in December, attributed to eating small, frequent meals. She uses Lantus, a long-acting insulin, at 90 units, and Lispro, a short-acting insulin, at 22 units with meals. 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 She is on Zoloft 50 mg daily. She received the TDAP vaccination during . An echocardiogram was performed due to difficulty obtaining heart images, similar to her previous . Socially, she stays at home due to the heat and has a cdupl-adwe-naw child. She plans to have an eye exam after delivery and has chosen a inspector shells through [facility] for her new baby. Past Medical History: Diagnosis Date Anxiety Diabetes mellitus (HCC) 2020 Past Surgical History: Procedure Laterality Date ADENOIDECTOMY TONSILLECTOMY Family History Problem Relation Age of Onset Diabetes Mother Hypertension Mother Hyperlipidemia Father Diabetes Sister Asthma Sister Anxiety Sister Diabetes Paternal Grandmother Social History Tobacco Use Smoking status: Never Smokeless tobacco: Never Vaping Use Vaping status: Never Used Substance Use Topics Alcohol use: Not Currently Drug use: Never Review of Systems Physical Exam Constitutional: General: She is not in acute distress. Appearance: She is not ill-appearing. HENT: Head: Normocephalic and atraumatic. Right Ear: Tympanic membrane, ear canal and external ear normal. Left Ear: Tympanic membrane, ear canal and external ear normal. Nose: Nose normal. Mouth/Throat: Mouth: Mucous membranes are moist. Pharynx: Oropharynx is clear. No oropharyngeal exudate or posterior oropharyngeal erythema. Eyes: Extraocular Movements: Extraocular movements intact. Conjunctiva/sclera: Conjunctivae normal. Pupils: Pupils are equal, round, and reactive to light. Cardiovascular: Rate and Rhythm: Normal rate and regular rhythm. Pulses: Normal pulses. Heart sounds: Normal heart sounds. No murmur heard. No gallop. Pulmonary: Effort: Pulmonary effort is normal. Breath sounds: Normal breath sounds. No wheezing, rhonchi or rales. Chest: Chest wall: No tenderness. Abdominal: General: Abdomen is flat. Bowel sounds are normal. There is no distension. Palpations: Abdomen is soft. There is no mass. Tenderness: There is no abdominal tenderness. There is no right CVA tenderness, left CVA tenderness, guarding or rebound. Musculoskeletal: General: No tenderness. Normal range of motion. Cervical back: Normal range of motion and neck supple. No rigidity. No muscular tenderness. Right lower leg: No edema. Left lower leg: No edema. Lymphadenopathy: Cervical: No cervical adenopathy. Skin: General: Skin is warm. Findings: No erythema or rash. Neurological: General: No focal deficit present. Mental Status: She is alert and oriented to person, place, and time. Sensory: No sensory deficit. Motor: No weakness. Gait: Gait normal. Psychiatric: Mood and Affect: Mood normal. Behavior: Behavior normal. Thought Content: Thought content normal. Judgment: Judgment normal. OARRS/NARxCHECK Report Received and Assessed: Date controlled substance agreement signed: No data found Date of last drug screen: Patient's Medications New Prescriptions No medications on file Previous Medications BD KIAH 2ND GEN PEN NEEDLE 32 GAUGE X / NDLE Inject 1 each under the skin daily . BLOOD-GLUCOSE METER MISC Once daily every morning before breakfast. . INSULIN LISPRO 100 UNIT/ML INPN 22 (twenty two) Units . LABETALOL (NORMODYNE) 200 MG TABLET Take 1 (one) tablet (200 mg total) by mouth 2 (two) times a day. LANCETS MISC 1 Lancet by Miscellaneous route daily . LANTUS SOLOSTAR U-100 INSULIN 100 UNIT/ML (3 ML) INPN INJECT 90 UNITS SUBCUTANEOUSLY ONCE DAILY METFORMIN (GLUCOPHAGE-XR) 500 MG 24 HR TABLET Take 2 (two) tablets (1,000 mg total) by mouth 2 (two) times a day with breakfast and lunch . VITAMIN WITH CA-IRON-FA 27-1 MG TAB Take 1 (one) tablet by mouth daily . Modified Medications Modified Medication Previous Medication SERTRALINE (ZOLOFT) 50 MG TABLET sertraline (ZOLOFT) 50 MG tablet Take 1 (one) tablet (50 mg total) by mouth daily . Take 1 (one) tablet (50 mg total) by mouth daily. Discontinued Medications DESOGESTREL-ETHINYL ESTRADIOL (APRI) 0.15-0.03 MG PER TABLET Take 1 (one) tablet by mouth daily . INSULIN DEGLUDEC (TRESIBA FLEXTOUCH U-100) 100 UNIT/ML (3 ML) INPN Inject 25 (twenty five) Units under the skin at bedtime . LIRAGLUTIDE (VICTOZA 2-MIGUEL) 0.6 MG/0.1 ML (18 MG/3 ML) PEN Inject 1.2 mg under the skin daily . LOSARTAN (COZAAR) 50 MG TABLET Take 1 (one) tablet (50 mg total) by mouth daily . TIRZEPATIDE (MOUNJARO) 2.5 MG/0.5 ML PEN Inject 0.5 mL under the skin every 7 days . Health Maintenance Due Topic Date Due Urine (micro)albumin/creatinine ratio - Diabetes Never done Diabetic Foot Exam Never done Diabetic Eye Exam Never done HIV Screening Never done Hepatitis C Screening Never done Pneumococcal Vaccine: Ped or At-Risk (1 of 2 - PCV) Never done eGFR - Diabetes 06/25/2022 COVID-19 Vaccine (2023- season) Never done Wellness Visit 09/27/2024 Assessment & Plan Problem List Items Addressed This Visit Endocrine Diabetes mellitus (HCC) Relevant Medications sertraline (ZOLOFT) 50 MG tablet Cardiovascular and Mediastinum HTN (hypertension) - Primary Other Obesity, morbid, BMI 40.0-49.9 (HCC) Assessment & Plan , third trimester 31 weeks gestation, stable blood pressure, no concerns on echocardiogram. Discussed RSV vaccination for immunity. - Continue care with OB at [facility]. - Discuss RSV vaccination with OB to provide immunity. - Schedule follow-up 4 months after delivery. Type 2 diabetes mellitus, well controlled in Diabetes well controlled with A1c of 5.1. Managed by endocrinology with Lantus and Lispro. Small frequent meals adopted. - Continue current diabetes management with endocrinology at [facility]. - Obtain records from endocrinology for continuity of care. Gestational hypertension, third trimester Managed with labetalol, stable blood pressure. - Continue labetalol 200 mg twice daily. Anxiety disorder Managed with sertraline 50 mg daily, no issues reported. - Continue sertraline 50 mg daily. - Prescribe sertraline for 90 days and reassess post-delivery. After discussing the use of ambient listening and audio recording in generating medical documentation, the patient verbally consented to use of this technology for today's visit. My ongoing relationship with Tasia Almaguer requires continued responsibility and cognitive effort of being the focal point for all services related to chronic condition(s). Return in about 4 months (around 07/02/2025) for Follow Up. ZITA RANDOLPH MD [facility] [address] [place] [id number] Dept: [phone] 10/07/2020 9:00 AM 12/23/2021 9:44 AM 03/02/2025 7:08 AM Depression Screening Little interest or pleasure in doing things 0 0 0 Feeling down, depressed, or hopeless 0 0 0 PHQ-2 Total Score 0 0 0 Trouble falling or staying asleep, or sleeping too much 1 0 Feeling tired or having little energy 0 1 Poor appetite or overeating 0 1 Feeling bad about yourself - or that you are a failure or have let yourself or your family down 0 0 Trouble concentrating on things, such as reading the newspaper or watching television 1 0 Moving or speaking so slowly that other people could have noticed. Or the opposite - being so fidgety or restless that you have been moving around a lot more than usual 0 0 Thoughts that you would be better off , or of hurting yourself in some way 0 0 PHQ-9 Total Score 2 2 If you checked off any problems, how difficult have these problems made it for you to do your work,take care of things at home, or get along with other people? Not difficult at all Data saved with a previous flowsheet row definition 03/02/2025 7:08 AM PHQ-9 Review Little interest or pleasure in doing things 0 Feeling down, depressed, or hopeless 0 PHQ-2 Total Score 0 documented in this [id number] Progress [facility] [address], [address] [place] [address] OFFICE VISIT Date of Service: 02/12/25 MR#: [id number] Acct: [id number] Name: TASIA ALMAGUER Rep # : [id number] : 1990 Provider: VIVIANE Jackson Age/Sex: 34/F [place] [facility] [place] Status: Signed with Addenda ADDENDUM by Nidhi Lyman on 02/12/25 at 1423 Office Procedure Documentation entered by Nidhi Lyman 02/12/25 14:23: Immunizations Adacel(Tdap Adolesn/Adult)(PF) 2 Lf-(2.5-5-3-5)-5 Lf/0.5 mL IM syringe Performing Provider: Rebecca Jackson DRY BOX TENDER, DRY BOX TENDER-C Performing Location: [facility] Administered by: Nidhi Lyman on 02/12/25 14:22 Dose Route Admin Location Dispensed Lot Number Expiration Date [facility] Reporting Developer 0.5 mL IM Left Deltoid 0.5 mL [id number] 01/29/27 [id number] [employer] VIS Given Date VIS Provided VIS Publication Date 02/12/25 Single Vaccine 24 Eligibility Eligibility Date Funding Source Not Applicable Date _ cc: ~* Signed Intake Vital Signs 12/18/24 15:44 01/17/25 15:47 02/12/25 13:39 02/12/25 13:48 Height 5 ft 7 in 5 ft 7 in 5 ft 7 in 5 ft 7 in Weight: 287 lb BMI 44.9 BP 122/82 H Intake Visit Reasons: 28wk ob Chief Complaint: 28 Week OB Director Of Sustainability Programs Required: No Is patient in pain?: No Allergies No Known Allergies Allergy (Verified 02/12/25 13:38) Medications ?Medication ?Instructions ?Recorded ?Confirmed ?Type multivitamin no.47-iron fum 27 1 cap PO DAILY Check wi primary 11/05/20 02/12/25 History mg-folate no.1 1 mg-dha 300 mg doctor capsule (PNV-DHA) sertraline 50 mg tablet (Zoloft) 50 mg PO DAILY Check with primary 11/05/20 02/12/25 History doctor metformin 500 mg tablet 500 mg PO BID [facility] 09/08/24 02/12/25 History doctor blood-glucose sensor (FreeStyle #6 ea 09/25/24 5 Rx Vamsi 3 Plus Sensor device) pen needle, diabetic 32 gauge x #150 ea 09/25/2402/12 Rx /32 (BD Ultra-Fine Kiah Pen Needle) labetalol 200 mg tablet 200 mg PO TID 30 days #90 ta bs 10/23/24 02/12/25 Rx insulin lispro 100 unit/mL 30 unit (0.3 mL) subcut TID #30 mL 11/20/24 02/12/25 Rx subcutaneous pen insulin glargine 100 unit/mL (3 100 unit subcut DAILY #30 mL 01/01/25 02/12/25 Rx mL) subcutaneous pen (Lantus Solostar U-100 Insulin) Last Menstrual Period: 07/25/24 Zika: Zika virus screening: Negative : No PFSH PFSH Medical History 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 Diabetes mellitus History of tetanus, diphtheria, and acellular pertussis booster vaccination (Tdap) Surgical History History of tonsillectomy and adenoidectomy Family History Mother Diabetes type 2 Hypertension Father Hyperlipemia Sister Diabetes type 2 Grandmother Diabetes type 2 Social History adopted: No household members: spouse, children and other details: Has custody of 2 neices housing: house number of children: 1 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 occupational exposures/hazards: No pets and animals: No history of recent travel: No sexually active: Yes Smoking Status: Never smoker second hand exposure: No alcohol intake: never substance use type: does not use diet: diabetic well-balanced diet: daily or most days caffeine: No eating out: rarely or never during the past year weight has: remained stable what type of physical activity do you participate in: walking frequency: 3-4 times per week duration: 15-30 minutes/day geoffrey/samaritan: None seatbelt use: always do you feel safe at home: Yes additional social history: [place] [facility] [place] 2 Elective abortions Hx Para 1 Spontaneous abortions 0 Hx # Term Pregnancies Ectopic pregnancies Hx # Pregnancies Multiple births # of living children 1 Past Pregnancies Del. Date Name GA/Weeks Outcome Route Bth Weight Gen Labor Lgth Anesthesia Del Locatn Provider FOB 06/17/21 Ernie 39 live - full term 8lbs 3oz Male ep idural [facility] June Delivery Date: 06/17/21 Last Updated by: Xuan Belcher GDM; mild uterine atony; 1st degree laceration HPI 28wk ob Details: TASIA ALMAGUER is a 34 year old who presents for routine OB visit. OB Visit GIANFRANCO Calculator Estimated Delivery Date Method Current WG Current Estimate 05/01/25 LMP (Certain) 28w 6d Other Estimates 05/03/25 Ultrasound #1 28w 4d Expected Delivery Route/Plan Labor Preferences- CB/BF classes: no labor support person: [facility] labor intervention preferences: [] pain management options preferred: epidural cut cord/dad catch: cord : bottle PP control planned: discussed discussed possible routes of delivery and associated risks: [] special requests: [] Specific Issue/Plans Covid status: [] Flu vaccine: [] Tdap vaccine: given Rhogam: NA LARC form signed: yes Problem list reviewed and updated with the most current plan of care details and appropriate ordersplaced. Relevant counseling for the gestational age provided. Continue routine care and follow up unless otherwise noted in visit notes/problem list details Initial Weight: Not Recorded Date -?-?-?-?-?-?-?-?-?-?-?-?- EGA Weight BP Urine Prot -?-?-?-?-?--?-?-?-?-?-?-?- Glucose FHR FuHt Pres Dilation -?-?-?-?-?-?-?-?-?-?-?--?- Effaced St Visit Note 09/25/24 -?-?-?-?-?-?-?-?-?-?-?-?- 8w 6d 260 lb 2 oz 146/93 -?-?-?-?-?-?-?-?-?-?-?-?- 186 -?-?-?-?-?-?-?-?-?-?-?-?- JV- CRL consiste nt with LMP. Declines NIPT. has DM and htn. starting labetalol now. will see Dr. Dunne this week. 10/23/24 -?-?-?-?-?-?-?-?-?-?-?-?- 12w 6d 266 lb 6 oz 141/92 Nega tive -?-?-?-?-?-?-?-?-?-?-?-?- Negative -?-?-?-?-?-?-?--?-?-?-?-?- JV- moveme nt seen on ultrasound but due to obesity and extreme movement of the fetus, unable to get the heart tones. Increasing labetalol to 200 tid. pt to continue seeingMFM and Dr. Dunne. 11/20/24 -?-?-?-?-?-?-?-?-?-?-?-?- 16w 6d 270 lb 129/81 Negative -?-?-?-?-?-?-?-?-?-?-?-?- Negative 150 -?-?-?-?-?--?-?-?-?-?-?-?- KW- no vb/crampi ng. + fm, US scheduled 12/05. doing well with BP meds. BS reviewed. accepts AFP screening today. 12/18/24 -?-?-?-?-?-?-?-?-?-?-?-?- 20w 6d 279 lb 4 oz 122/82 Trac e -?-?-?-?-?-?-?-?-?-?-?-?- Negative 156 -?-?-?-?-?-?-?-?-?-?-?-?- JV- low lying pl acenta and pelvic rest discussed. rpt scan coming up for anatomy structures not seen. glucose levels normal. still on labetalol and baby asa 01/17/25 -?-?-?-?-?-?-?-?-?-?-?-?- 25w 1d 277 lb 118/78 Negative -?-?-?-?-?-?-?-?-?-?-?-?- Negative 145 25 -?-?-?-?-?-?-?-?-?-?-?-?- SM- no vb lof go od fm no regular ctx BS controlled bps controlled discussed testing and 38 weeks delivery planning 02/12/25 -?-?-?-?-?-?-?-?-?-?-?-?- 28w 6d 287 lb 122/82 Negative -?-?-?-?-?-?-?-?-?-?-?-?- Negative 142 29 -?-?-?-?-?-?-?-?-?-?-?-?- MH-No VB, LOF. G ood FM. 28 wk labs. BS and HTN controlled. Larc, tdap. ACOG First Trimester First Trimester: Desire for , Alcohol, Tobacco Cessation, Illicit/Recreational Drug/Substance Use, Intimate Partner Violence, Barriers to care, Unstable Housing, Communication Barriers, Environmental/Work Hazards, Anticipated Course of Care, Toxoplasmosis Precations, Use of Any med ications, Sexual activity, Exercise, Dental Care, Sauna/Hot tub use, Seat Belt use, Childbirth classes/Hospital facilities, Travel, Indications for Ultrasound and Screening for Aneuploidy; Discussed Second Trimester Second Trimester: Signs and Symptoms of Labor, Selecting a care provider, Reproductive Life Planning & Contreception, Care Planning, Depression/Anxiety and Intimate Partner Violence; Discussed Tobacco Cessation Third Trimester Third Trimester: Pain Management Plans, Labor support person(s), Immediate Larc, Signs and Symptoms of Preeclampsia, Feeding No and Yes Formula, [place] Education and Family Medical Leave or Disability Forms ROS Const Reports system reviewed and no additional complaints, except as documented GI Denies abdominal pain, Denies nausea and Denies vomiting Exam Const General: cooperative Nutritional Appearance: well nourished GI Palpation: soft, nontender and other (gravid) Results POC Urinalysis 2 Dip (Clinic) Office Urine Glucose Negative Last Edit by Nidhi Lyman on 02/12/25 13 :48 Office Urine Protein Negative Last Edit by Nidhi Lyman on 02/12/25 13 :48 Coding Level of Care Code OB Routine Diagnoses Supervision of high risk in second trimester O09.92 Trimester: second trimester 28 weeks gestation of Z3A.28 Weeks of gestation: 28 weeks Family history of chromosomal abnormality Z82.79 Obesity affecting in second trimester, unspecified obesity type O99.212 Trimester: second trimester Obesity type affecting : unspecified obesity Group B Streptococcus urinary tract infection affecting in second trimester O23.42; B95.1 Trimester: second trimester Low lying placenta, antepartum O44.40 Pre-existing type 2 diabetes mellitus during in second trimester O24.112 Diabetes in type: pre-existing, type 2 Trimester: second trimester Primary hypertension I10 Hypertension type: primary hypertension Type 2 diabetes mellitus without complication, without long-term current use of insulin E11.9 Diabetes mellitus type: type 2 Diabetes mellitus fci insulin use: without moth exterminator use Diabetes mellitus complication status: without complication Anxiety F41.9 Assessment and Plan Assessment and Plan (1) Supervision of high-risk : Status: Acute Qualifiers: Trimester: second trimester Qualified Code(s): O09.92 - Supervision of high risk , unspecified, second trimester Comment: PRR , GIANFRANCO 05/01/25, girl [facility]: Ernie (Has custody of 14yr old twin nieces, Anaconda &Believe), : Slade (2) : Status: Acute Qualifiers: Weeks of gestation: 28 weeks Qualified Code(s): Z3A.28 - 28 weeks gestation of Comment: Discussed genetic/carrier testing - undecided, neg AFP, nl anatomy (3) Family history of chromosomal abnormality: Status: Acute Comment: Slade's brother has Trisomy 21. Declines genetic testing. (4) Obesity affecting : Status: Acute Qualifiers: Trimester: second trimester Obesity type affecting : unspecified obesity Qualified Code(s): O99.212 - Obesity complicating , second trimester Comment: unable to get heart views. nl echo. BMI 39.2; HgBA1C ordered w/NOB (5) GBS (group B streptococcus) UTI complicating : Status: Acute Qualifiers: Trimester: second trimester Qualified Code(s): O23.42 - Unspecified infection of urinary tract in , second trimester; B95.1 - Streptococcus, group B, as the cause of diseases classified elsewhere (6) Low lying placenta, antepartum: Status: Acute Comment: pelvic rest and follow up scan at 28 weeks: 02/13: (7) Diabetes in : Status: Chronic Qualifiers: Diabetes in type: pre-existing, type 2 Trimester: second trimester Qualified Code(s): O24.112 - Pre-existing type 2 diabetes mellitus, in , second trimester Comment: class B diabetes. growth US q 4 weeks. twice weekly testing 32 on with weekly bpp and weekly NST and deliver at 38 (8) Hypertension: Status: Chronic Qualifiers: Hypertension type: primary hypertension Qualified Code(s): I10 - Essential (primary) hypertension Comment: Labetalol 200 bid if controlled plan 38 weeks delivery, plan weekly BPP and weekly nst from 32 on (9) Diabetes mellitus: Status: Acute Qualifiers: Diabetes mellitus type: type 2 Diabetes mellitus moth exterminator insulin use: without fci use Diabetes mellitus complication status: without complication Qualified Code(s): E11.9 - Type 2 diabetes mellitus without complications Comment: Type 2 - On Metformin & insulin (10) Anxiety: Status: Acute Comment: Zoloft , encouraged counseling. Stable Orders: Orders POC Urinalysis 2 Dip (Clinic) Today Plan problem list reviewed and updated for most current plan of care and appropriate orders placed. Relevant counseling for the gestational age appropriate provided and ACOG education checklist updated. Continue routine care and follow up. 02/12/25 1404 s DRY BOX TENDER DRY BOX TENDER-C> Date _ Rebecca Jackson DRY BOX TENDER DRY BOX TENDER-C Cosigner Signature: Date (if applicable) CC: ~ [facility]07-14-2025 Progress note Author Rebecca Jackson [facility] Note Date/Time February 12, 2025 2:04 pm [facility] [address], [address] [place] [address] OFFICE VISIT Date of Service: 02/12/25 MR#: [id number] Acct: [id number] Name: TASIA ALMAGUER Rep # : [id number] : 1990 Provider: VIVIANE Jackson Age/Sex: 34/F [place] [facility] [place] Status: Signed with Addenda ADDENDUM by Nidhi Lyman on 02/12/25 at 1423 Office Procedure Documentation entered by Nidhi Lyman 02/12/25 14:23: Immunizations Adacel(Tdap Adolesn/Adult)(PF) 2 Lf-(2.5-5-3-5)-5 Lf/0.5 mL IM syringe Performing Provider: Rebecca Jackson DRY BOX TENDER DRY BOX TENDERRuizC Performing Location: [facility] Administered by: Nidhi Lyman on 02/12/25 14:22 Dose Route Admin Location Dispensed Lot Number Expiration Date [facility] Reporting Developer 0.5 mL IM Left Deltoid 0.5 mL [id number] 01/29/27 05024-673-36 [employer] VIS Given Date VIS Provided VIS Publication Date 02/12/25 Single Vaccine 24 Eligibility Eligibility Date Funding Source Not Applicable Date _ cc: ~* Signed Intake Vital Signs 12/18/24 15:44 01/17/25 15:47 02/12/25 13:39 02/12/25 13:48 Height 5 ft 7 in 5 ft 7 in 5 ft 7 in 5 ft 7 in Weight: 287 lb BMI 44.9 BP 122/82 H Intake Visit Reasons: 28wk ob Chief Complaint: 28 Week OB Director Of Sustainability Programs Required: No Is patient in pain?: No Allergies No Known Allergies Allergy (Verified 02/12/25 13:38) Medications ?Medication ?Instructions ?Recorded ?Confirmed ?Type multivitamin no.47-iron fum 27 1 cap PO DAILY Check [facility] 11/05/20 02/12/25 History mg-folate no.1 1 mg-dha 300 mg doctor capsule (PNV-DHA) sertraline 50 mg tablet (Zoloft) 50 mg PO DAILY Check with primary 11/05/20 02/12/25 History doctor metformin 500 mg tablet 500 mg PO BID [facility]/08[facility]24 02/12/25 History doctor blood-glucose sensor (FreeStyle #6 ea 09/25/24 5 Rx Vamsi 3 Plus Sensor device) pen needle, diabetic 32 gauge x #150 ea 09/25/2402/12 Rx /32 (BD Ultra-Fine Kiah Pen Needle) labetalol 200 mg tablet 200 mg PO TID 30 days #90 ta bs 10/23/24 02/12/25 Rx insulin lispro 100 unit/mL 30 unit (0.3 mL) subcut TID #30 mL 11/20/24 02/12/25 Rx subcutaneous pen insulin glargine 100 unit/mL (3 100 unit subcut DAILY #30 mL 01/01/25 02/12/25 Rx mL) subcutaneous pen (Lantus Solostar U-100 Insulin) Last Menstrual Period: 07/25/24 Zika: Zika virus screening: Negative : No PFSH PFSH Medical History 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 Diabetes mellitus History of tetanus, diphtheria, and acellular pertussis booster vaccination (Tdap) Surgical History History of tonsillectomy and adenoidectomy Family History Mother Diabetes type 2 Hypertension Father Hyperlipemia Sister Diabetes type 2 Grandmother Diabetes type 2 Social History adopted: No household members: spouse, children and other details: Has custody of 2 neices housing: house number of children: 1 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 occupational exposures/hazards: No pets and animals: No history of recent travel: No sexually active: Yes Smoking Status: Never smoker second hand exposure: No alcohol intake: never substance use type: does not use diet: diabetic well-balanced diet: daily or most days caffeine: No eating out: rarely or never during the past year weight has: remained stable what type of physical activity do you participate in: walking frequency: 3-4 times per week duration: 15-30 minutes/day geoffrey/samaritan: None seatbelt use: always do you feel safe at home: Yes additional social history: : Slade Xatori Andriy Madden History 2 Elective abortions Hx Para 1 Spontaneous abortions 0 Hx # Term Pregnancies Ectopic pregnancies Hx # Pregnancies Multiple births # of living children 1 Past Pregnancies Del. Date Name GA/Weeks Outcome Route Bth Weight Infant Gen Labor Lgth Anesthesia Del Locatn Provider FOB 06/17/21 Ernie 39 live - full term 8lbs 3oz Male ep idural [facility] Delivery Date: 06/17/21 Last Updated by: Xuan Belcher GDM; mild uterine atony; 1st degree laceration HPI 28wk ob Details: TASIA ALMAGUER is a 34 year old who presents for routine OB visit. OB Visit GIANFRANCO Calculator Estimated Delivery Date Method Current WG Current Estimate 05/01/25 LMP (Certain) 28w 6d Other Estimates 05/03/25 Ultrasound #1 28w 4d Expected Delivery Route/Plan Labor Preferences- CB/BF classes: no labor support person: Slade labor intervention preferences: [] pain management options preferred: epidural cut cord/dad catch: cord : bottle PP control planned: discussed discussed possible routes of delivery and associated risks: [] special requests: [] Specific Issue/Plans Covid status: [] Flu vaccine: [] Tdap vaccine: given Rhogam: NA LARC form signed: yes Problem list reviewed and updated with the most current plan of care details and appropriate orders placed. Relevant counseling for the gestational age provided. Continue routine care and follow up unless otherwise noted in visit notes/problem list details Initial Weight: Not Recorded Date -?-?-?-?-?-?-?-?-?-?-?-?- EGA Weight BP Urine Prot -?-?-?-?-?--?-?-?-?-?-?-?- Glucose FHR FuHt Pres Dilation -?-?-?-?-?-?-?-?-?-?-?--?- Effaced St Visit Note 09/25/24 -?-?-?-?-?-?-?-?-?-?-?-?- 8w 6d 260 lb 2 oz 146/93 -?-?-?-?-?-?-?-?-?-?-?-?- 186 -?-?-?-?-?-?-?-?-?-?-?-?- JV- CRL consiste nt with LMP. Declines NIPT. has DM and htn. starting labetalol now. will see Dr. Dunne this week. 10/23/24 -?-?-?-?-?-?-?-?-?-?-?-?- 12w 6d 266 lb 6 oz 141/92 Nega tive -?-?-?-?-?-?-?-?-?-?-?-?- Negative -?-?-?-?-?-?-?--?-?-?-?-?- JV- moveme nt seen on ultrasound but due to obesity and extreme movement of the fetus, unable to get the heart tones. Increasing labetalol to 200 tid. pt to continue seeing MFM and Dr. Dunne. 11/20/24 -?-?-?-?-?-?-?-?-?-?-?-?- 16w 6d 270 lb 129/81 Negative -?-?-?-?-?-?-?-?-?-?-?-?- Negative 150 -?-?-?-?-?--?-?-?-?-?-?-?- KW- no vb/crampi ng. + fm, US scheduled 12/05. doing well with BP meds. BS reviewed. accepts AFP screening today. 12/18/24 -?-?-?-?-?-?-?-?-?-?-?-?- 20w 6d 279 lb 4 oz 122/82 Trac e -?-?-?-?-?-?-?-?-?-?-?-?- Negative 156 -?-?-?-?-?-?-?-?-?-?-?-?- JV- low lying pl acenta and pelvic rest discussed. rpt scan coming up for anatomy structures not seen. glucose levels normal. still on labetalol and baby asa 01/17/25 -?-?-?-?-?-?-?-?-?-?-?-?- 25w 1d 277 lb 118/78 Negative -?-?-?-?-?-?-?-?-?-?-?-?- Negative 145 25 -?-?-?-?-?-?-?-?-?-?-?-?- SM- no vb lof go od fm no regular ctx BS controlled bps controlled discussed testing and 38 weeks delivery planning 02/12/25 -?-?-?-?-?-?-?-?-?-?-?-?- 28w 6d 287 lb 122/82 Negative -?-?-?-?-?-?-?-?-?-?-?-?- Negative 142 29 -?-?-?-?-?-?-?-?-?-?-?-?- MH-No VB, LOF. G ood FM. 28 wk labs. BS and HTN controlled. Larc, tdap. ACOG First Trimester First Trimester: Desire for , Alcohol, Tobacco Cessation, Illicit/Recreational Drug/Substance Use, Intimate Partner Violence, Barriers to care, Unstable Housing, Communication Barriers, Environmental/Work Hazards, Anticipated Course of Care, Toxoplasmosis Precations, Use of Any medications, Sexual activity, Exercise, Dental Care, Sauna/Hot tub use, Seat Belt use, Childbirth classes/Hospital facilities, Travel, Indications for Ultrasound and Screening for Aneuploidy; Discussed Second Trimester Second Trimester: Signs and Symptoms of Labor, Selecting a care provider, Reproductive Life Planning & Contreception, Care Planning, Depression/Anxiety and Intimate Partner Violence; Discussed Tobacco Cessation Third Trimester Third Trimester: Pain Management Plans, Labor support person(s), Immediate Larc, Signs and Symptoms of Preeclampsia, Feeding No and Yes Formula, Education and Family Medical Leave or Disability Forms ROS Const Reports system reviewed and no additional complaints, except as documented GI Denies abdominal pain, Denies nausea and Denies vomiting Exam Const General: cooperative Nutritional Appearance: well nourished GI Palpation: soft, nontender and other (gravid) Results POC Urinalysis 2 Dip (Clinic) Office Urine Glucose Negative Last Edit by Nidhi Lyman on 02/12/25 13 :48 Office Urine Protein Negative Last Edit by Nidhi Lyman on 02/12/25 13 :48 Coding Level of Care Code OB Routine Diagnoses Supervision of high risk in second trimester O09.92 Trimester: second trimester 28 weeks gestation of Z3A.28 Weeks of gestation: 28 weeks Family history of chromosomal abnormality Z82.79 Obesity affecting in second trimester, unspecified obesity type O99.212 Trimester: second trimester Obesity type affecting : unspecified obesity Group B Streptococcus urinary tract infection affecting in second trimester O23.42; B95.1 Trimester: second trimester Low lying placenta, antepartum O44.40 Pre-existing type 2 diabetes mellitus during in second trimester O24.112 Diabetes in type: pre-existing, type 2 Trimester: second trimester Primary hypertension I10 Hypertension type: primary hypertension Type 2 diabetes mellitus without complication, without long-term current use of insulin E11.9 Diabetes mellitus type: type 2 Diabetes mellitus moth exterminator insulin use: without fci use Diabetes mellitus complication status: without complication Anxiety F41.9 Assessment and Plan Assessment and Plan (1) Supervision of high-risk : Status: Acute Qualifiers: Trimester: second trimester Qualified Code(s): O09.92 - Supervision of high risk , unspecified, second trimester Comment: PRR , GIANFRANCO 05/01/25, girl [facility]: Ernie (Has custody of 14yr old twin nieces, Anaconda & Believe), : Slade (2) : Status: Acute Qualifiers: Weeks of gestation: 28 weeks Qualified Code(s): Z3A.28 - 28 weeks gestation of Comment: Discussed genetic/carrier testing - undecided, neg AFP, nl anatomy (3) Family history of chromosomal abnormality: Status: Acute Comment: Slade's brother has Trisomy 21. Declines genetic testing. (4) Obesity affecting : Status: Acute Qualifiers: Trimester: second trimester Obesity type affecting : unspecified obesity Qualified Code(s): O99.212 - Obesity complicating , second trimester Comment: unable to get heart views. nl echo. BMI 39.2; HgBA1C ordered w/NOB (5) GBS (group B streptococcus) UTI complicating : Status: Acute Qualifiers: Trimester: second trimester Qualified Code(s): O23.42 - Unspecified infection of urinary tract in , second trimester; B95.1 - Streptococcus, group B, as the cause of diseases classified elsewhere (6) Low lying placenta, antepartum: Status: Acute Comment: pelvic rest and follow up scan at 28 weeks: 02/13: (7) Diabetes in : Status: Chronic Qualifiers: Diabetes in type: pre-existing, type 2 Trimester: second trimester Qualified Code(s): O24.112 - Pre-existing type 2 diabetes mellitus, in , second trimester Comment: class B diabetes. growth US q 4 weeks. twice weekly testing 32 on with weekly bpp and weekly NST and deliver at 38 (8) Hypertension: Status: Chronic Qualifiers: Hypertension type: primary hypertension Qualified Code(s): I10 - Essential (primary) hypertension Comment: Labetalol 200 bid if controlled plan 38 weeks delivery, plan weekly BPP and weekly nst from 32 on (9) Diabetes mellitus: Status: Acute Qualifiers: Diabetes mellitus type: type 2 Diabetes mellitus fci insulin use: without moth exterminator use Diabetes mellitus complication status: without complication Qualified Code(s): E11.9 - Type 2 diabetes mellitus without complications Comment: Type 2 - On Metformin & insulin (10) Anxiety: Status: Acute Comment: Zoloft , encouraged counseling. Stable Orders: Orders POC Urinalysis 2 Dip (Clinic) Today Plan problem list reviewed and updated for most current plan of care and appropriate orders placed. Relevant counseling for the gestational age appropriate provided and ACOG education checklist updated. Continue routine care and follow up. 02/12/25 0813 <Electronically signed by Rebecca sandoval NP DRY BOX TENDER-C> Date _ Rebecca Jackson NP DRY BOX TENDER-C Cosigner Signature: Date (if applicable) CC: ~ [place] [email or web address] Work Phone: [phone]) 788-325606-12-2025 Agustín Almaguer is a new patient who's primary care provider is No Primary Care, MD Cory here for evaluation of heart. Chief Complaint Patient presents with ECHO echo History of Presenting Problem HPI Thank you for consulting us regarding Tasia Almaguer. She is referred to the cardiology clinic at [facility] for evaluation of the heart. I saw this patient in the echocardiogram clinic on 01/11/2025. Patient was referred to the echocardiographic clinic for a echocardiogram since there were limited cardiac views on OB ultrasound. Cardiac ROS Review of Systems See the full note Past Medical History Past Medical History: Diagnosis Date Anxiety on medication Diabetes mellitus, type 2 Lispro ; Lantus 28 u hs; A1C 9.9 Family history of chromosomal abnormality FOB brother with Luis Carlos 21 Hypertension labetalol 200 mg BID Obesity Past Surgical History: Procedure Laterality Date TONSILLECTOMY AND ADENOIDECTOMY Medications: Encounter Medications[1] Allergies: Allergies[2] Family Medical History: Family History Problem Relation Age of Onset Hypertension Mother Diabetes Mother Hypertension Father Diabetes Sister Social History: Social History Socioeconomic History Marital status: Spouse name: None Number of children: None Years of education: None Highest education level: None Tobacco Use Smoking status: Never Smokeless tobacco: Never Substance and Sexual Activity Alcohol use: Not Currently Drug use: Never Social Drivers of Health Food Insecurity: No Food Insecurity (10/24/2020) Received from [facility] Hunger Vital Sign Within the past 12 months, you worried that your food would run out before you got the money to buy more.: Never true Within the past 12 months, the food you bought just didn't last and you didn't have money to get more.: Never true Transportation Needs: No Transportation Needs (10/24/2020) Received from [facility] PRAPARE - Transportation Lack of Transportation (Medical): No Lack of Transportation (Non-Medical): No Physical Exam: Vitals: 01/11/25 1014 BP: 131/77 Growth %ile SmartLinks can only be used for patients less than 20 years old. Weight - Scale: (!) 124.7 kg Facility age limit for growth %aaron is 20 years. Height: 172.7 cm Facility age limit for growth %aaron is 21 years. Physical Exam Patient is here for the echocardiogram. Physical exam was deferred. 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 Atrioventricular and ventriculoarterial concordance seen. Atria: Normal left and right atrial size. There was a patent foramen ovale, with [id number] shunt. Tricuspid valve: Normal tricuspid valve. There was normal Doppler across the tricuspid valve. Mitral valve: Normal mitral valve. There was normal Doppler across the mitral valve. Right ventricle: There was normal size and systolic function. Left ventricle: There was normal size and systolic function. Aortic valve: Normal aortic valve. There was normal Doppler across the aortic valve seen. Pulmonary valve: Normal pulmonary valve. There was normal Doppler across the pulmonary valve seen. Ventricular septum: There was no obvious ventricular septal defect seen. Main pulmonary artery: Normal main pulmonary artery. Pulmonary arteries: Good size branch pulmonary arteries. Pulmonary veins: There were at least 2/4 pulmonary veins seen entering into the left atrium. Systemic venous return: There was normal systemic venous return seen. Aortic arch: Patent aortic arch. Ductal arch: Patent Ductal arch. 3-vessel view: There was normal 3-vessel view. Ductus venosus: There was normal flow pattern seen in the ductus venosus. Umbilical artery and umbilical vein. There was normal pulse Doppler in umbilical artery and umbilical vein. Rhythm: There appeared to be a sinus rhythm. There was no arrhythmia noted. Impression and recommendations. 1) Technically difficult study due to movements/ position/maternal body habitus Some views were limited, otherwise grossly normal echocardiogram. 2) I have discussed the limitations of echocardiographic examination, that is likely to miss small ventricular septal defects as well as mild semilunar valve stenosis. Patent foramen ovale and patent ductus arteriosus are normal findings in utero. Coarctation of aorta is difficult to diagnose pre natally in the presence of patent ductus arteriosus. 3) I have also discussed echocardiographic findings in detail including circulation, pathophysiology of Patent foramen ovale and Patent ductus arteriosus, prognosis, medical and surgical treatments, follow up echocardiograms and follow ups. 4) I would l (more content not included)...[facility]06-02-2025 Evaluation + Plan note* Assessment & Plan Note - Amador Luna DO - 01/01/2025 8:17 AM EDTAssociated Problem(s): Acute otitis media Acute right otitis media. Patient currently 22 weeks . - Prescribed amoxicillin 875 twice daily x 7 days - Follow-up if symptoms persist [id number] Miscellaneous Notes* Assessment & Plan Note - Amador Luna DO - 01/01/2025 8:17 AM EDTAssociated Problem(s): Acute otitis media Acute right otitis media. Patient currently 22 weeks . - Prescribed amoxicillin 875 twice daily x 7 days - Follow-up if symptoms persist documented in this [id number] NoteAssessment/Plan: Acute otitis media Acute right otitis media. Patient currently 22 weeks . - Prescribed amoxicillin 875 twice daily x 7 days - Follow-up if symptoms persist Subjective: Tasia Almaguer is a 34 y.o. female Chief Complaint Patient presents with Otalgia Right ear, has had a cold that has moved to her ear. Ear pain started yesterday. Cold symptoms x's 10 days. Patient presents for acute visit for right ear pain. She has been sick with sinusitis symptoms for 10 days, these are greatly improved now, but she began having right ear pain yesterday. Denies history of ear infections as an adult, but she did have ear infections as a child which decreased after tonsillectomy. Otalgia There is pain in the right ear. This is a new problem. The current episode started yesterday. The problem occurs constantly. There has been no fever. Associated symptoms include hearing loss and rhinorrhea. Pertinent negatives include no ear discharge. She has tried acetaminophen for the symptoms. The treatment provided mild relief. There is no history of a chronic ear infection or a tympanostomy tube. The following portions of the patient's history were reviewed and updated as appropriate: allergies, current medications, past family history, past medical history, past social history, past surgical history and problem list. Review of Systems HENT: Positive for ear pain, hearing loss and rhinorrhea. Negative for ear discharge. Objective: PACU Vitals 01/01/25 0751 BP: 131/83 Pulse: (!) 103 Resp: 16 Temp: 98.3 degrees F (36.8 degrees C) SpO2: 98% Physical Exam Constitutional: General: She is not in acute distress. Appearance: Normal appearance. She is not ill-appearing, toxic-appearing or diaphoretic. HENT: Head: Normocephalic and atraumatic. Right Ear: Ear canal and external ear normal. A middle ear effusion is present. There is no impacted cerumen. Tympanic membrane is bulging. Tympanic membrane is not perforated or erythematous. Left Ear: Ear canal and external ear normal. A middle ear effusion is present. There is no impacted cerumen. Tympanic membrane is not injected, perforated or erythematous. Ears: Comments: Left ear with clear effusion, right ear with milky effusion Cardiovascular: Rate and Rhythm: Normal rate and regular rhythm. Heart sounds: No murmur heard. No gallop. Pulmonary: Effort: Pulmonary effort is normal. No respiratory distress. Breath sounds: Normal breath sounds. No wheezing or rales. Neurological: Mental Status: She is alert. For any new medications prescribed today, patient was educated about indications for the medication, how to take the medication and potential side effects of the medications. Amador Luna DO AUTHENTICATED BY AMADOR LUNA, ON 01/01/2025 08:17:53[facility] 01-01-2025 History of Present illness Narrative* Amador Luna DO - 01/01/2025 8:04 AM EDT Assessment/Plan: Acute otitis media Acute right otitis media. Patient currently 22 weeks . - Prescribed amoxicillin 875 twice daily x 7 days - Follow-up if symptoms persist Subjective: Tasia Almaguer is a 34 y.o. female Chief Complaint Patient presents with Otalgia Right ear, has had a cold that has moved to her ear. Ear pain started yesterday. Cold symptoms x's 10 days. Patient presents for acute visit for right ear pain. She has been sick with sinusitis symptoms for 10 days, these are greatly improved now, but she began having right ear pain yesterday. Denies history of ear infections as an adult, but she did have ear infections as a child which decreased after tonsillectomy. Otalgia There is pain in the right ear. This is a new problem. The current episode started yesterday. The problem occurs constantly. There has been no fever. Associated symptoms include hearing loss and rhinorrhea. Pertinent negatives include no ear discharge. She has tried acetaminophen for the symptoms. The treatment provided mild relief. There is no history of a chronic ear infection or a tympanostomytube. The following portions of the patient's history were reviewed and updated as appropriate: allergies, current medications, past family history, past medical history, past social history, past surgicalhistory and problem list. Review of Systems HENT: Positive for ear pain, hearing loss and rhinorrhea. Negative for ear discharge. Objective: PACU Vitals 01/01/25 0751 BP: 131/83 Pulse: (!) 103 Resp: 16 Temp: 98.3 F (36.8 C) SpO2: 98% Physical Exam Constitutional: General: She is not in acute distress. Appearance: Normal appearance. She is not ill-appearing, toxic-appearing or diaphoretic. HENT: Head: Normocephalic and atraumatic. Right Ear: Ear canal and external ear normal. A middle ear effusion is present. There is no impacted cerumen. Tympanic membrane is bulging. Tympanic membrane is not perforated or erythematous. Left Ear: Ear canal and external ear normal. A middle ear effusion is present. There is no impactedcerumen. Tympanic membrane is not injected, perforated or erythematous. Ears: Comments: Left ear with clear effusion, right ear with milky effusion Cardiovascular: Rate and Rhythm: Normal rate and regular rhythm. Heart sounds: No murmur heard. No gallop. Pulmonary: Effort: Pulmonary effort is normal. No respiratory distress. Breath sounds: Normal breath sounds. No wheezing or rales. Neurological: Mental Status: She is alert. For any new medications prescribed today, patient was educated about indications for the medication, how to take the medication and potential side effects of the medications. Amador Luna DO documented in this [id number] Evaluation note* Diagnosis Onset Date Resolution Status Admit Date Anxiety acute December 18, 2024 3:36pm Diabetes mellitus acute November 3:36pm Family history of chromosoma l abnormality acute December 18, 2024 3 :36pm GBS (group B streptococcus) UTI complicating acute November 302024 3:36pm Obesity affecting acute December 18, 2024 3:36pm acute December 18, 2024 3:36pm Supervision of high-risk acute December 18, 2024 3 :36pm Hypertension chronic December 18 3:36pm Low lying placenta, antepartum resol diaz December 18, 2024 3:36pm Type 2 diabetes mellitus affecting in first trimester, antepartum deleted December 18, 2024 3:36pm Diabetes in chronic Dec 9:02am Hypertension chronic January 01 9:02am Anxiety acute January 17 3:37pm Diabetes mellitus acute January 172024 3:37pm Family history of chromosoma l abnormality acute January 17, 2025 3:37pm GBS (group B streptococcus) UTI complicating acute January 17, 2025 3:37pm Obesity affecting acute January 17, 2025 3:37pm acute January 17 3:37pm Supervision of high-risk acute January 17, 2025 3:37pm Diabetes in chronic Dec 3:37pm Hypertension chronic January 17, 2 025 3:37pm Low lying placenta, antepartum resol diaz January 17, 2025 3:37pm Anxiety acute February 12 1:37pm Diabetes mellitus acute February 122024 1:37pm Family history of chromosoma l abnormality acute February 12, 2025 1:37pm GBS (group B streptococcus) UTI complicating acute February 12, 2025 1:37pm Obesity affecting acute February 12, 2025 1:37pm acute February 12 1:37pm Supervision of high-risk acute February 12, 2025 1:37pm Diabetes in chronic Jan 1:37pm Hypertension chronic February 12, 2 025 1:37pm Low lying placenta, antepartum resol diaz February 12, 2025 1:37pm Anxiety acute February 26 1:20pm Diabetes mellitus acute February 262024 1:20pm Family history of chromosoma l abnormality acute February 26, 2025 1:20pm GBS (group B streptococcus) UTI complicating acute February 26, 2025 1:20pm Obesity affecting acute February 26, 2025 1:20pm acute February 26 1:20pm Supervision of high-risk acute February 26, 2025 1:20pm Diabetes in chronic Jan 1:20pm Hypertension chronic February 26, 2 025 1:20pm Anxiety acute March 09 1:41pm Diabetes mellitus acute March 09, 2025 1:41pm Family history of chromosoma l abnormality acute March 09, 2025 1:41pm GBS (group B streptococcus) UTI complicating acute 2024 1:41pm Obesity affecting acute March 09, 2025 1:41pm acute March 09 1:41pm Supervision of high-risk acute March 09, 2025 1:41pm Diabetes in chronic Mar 1:41pm Hypertension chronic March 09, 2025 1:41pm Anxiety acute March 16, 025 1:26pm Diabetes mellitus acute March 16, 2025 1:26pm Family history of chromosoma l abnormality acute March 16 1:26pm GBS (group B streptococcus) UTI complicating acute 2024 1:26pm Obesity affecting acute March 16, 2025 1:26pm acute March 16, 2 025 1:26pm Supervision of high-risk acute March 16 1:26pm Diabetes in chronic Mar 1:26pm Hypertension chronic March 16, 2025 1:26pm Variable deceleration resolved Mar 2:15pm Anxiety acute March 23, 025 10:38am Diabetes mellitus acute March 23, 2025 10:38am Family history of chromosoma l abnormality acute March 23 10:38am GBS (group B streptococcus) UTI complicating acute 2024 10:38am Obesity affecting acute March 23, 2025 10:38am acute March 23, 025 10:38am Supervision of high-risk acute March 23 10:38am Diabetes in chronic Mar 10:38am Hypertension chronic March 23, 2025 10:38am [facility] Work Phone: 1(601) 426-201604-21-2025 Evaluation note* Diagnosis Onset Date Resolution Status Admit Date Anxiety acute November 20 9:19am Diabetes mellitus acute November 012024 9:19am Family history of chromosoma l abnormality acute November 20, 2024 9:19am GBS (group B streptococcus) UTI complicating acute October 9:19am Obesity affecting acute November 20, 2024 9:19am acute November 20 9:19am Supervision of high-risk acute November 20, 2024 9:19am Hypertension chronic November 20, 2024 9:19am Type 2 diabetes mellitus affecting in first trimester, antepartum deleted October 9:19am Anxiety acute December 18, 2024 3:36pm Diabetes mellitus acute November 3:36pm Family history of chromosoma l abnormality acute December 18, 2024 3 :36pm GBS (group B streptococcus) UTI complicating acute December 18, 2024 3:36pm Obesity affecting acute December 18, 2024 3:36pm acute December 18, 2024 3:36pm Supervision of high-risk acute December 18, 2024 3 :36pm Hypertension chronic December 18 3:36pm Low lying placenta, antepartum resol diaz December 18, 2024 3:36pm Type 2 diabetes mellitus affecting in first trimester, antepartum deleted December 18, 2024 3:36pm Diabetes in chronic Dec 9:02am Hypertension chronic January 01 9:02am Anxiety acute January 17 3:37pm Diabetes mellitus acute January 172024 3:37pm Family history of chromosoma l abnormality acute January 17, 2025 3:37pm GBS (group B streptococcus) UTI complicating acute December 3:37pm Obesity affecting acute January 17, 2025 3:37pm acute January 17 3:37pm Supervision of high-risk acute January 17, 2025 3:37pm Diabetes in chronic Dec 3:37pm Hypertension chronic January 17, 2 025 3:37pm Low lying placenta, antepartum resol diaz January 17, 2025 3:37pm Anxiety acute February 12 1:37pm Diabetes mellitus acute February 122024 1:37pm Family history of chromosoma l abnormality acute February 12, 2025 1:37pm GBS (group B streptococcus) UTI complicating acute January 1:37pm Obesity affecting acute February 12, 2025 1:37pm acute February 12 1:37pm Supervision of high-risk acute February 12, 2025 1:37pm Diabetes in chronic Andrea 2024 1:37pm Hypertension chronic February 12, 2 025 1:37pm Low lying placenta, antepartum resol diaz February 12, 2025 1:37pm Anxiety acute February 26 1:20pm Diabetes mellitus acute February 262024 1:20pm Family history of chromosoma l abnormality acute February 26, 2025 1:20pm GBS (group B streptococcus) UTI complicating acute January 1:20pm Obesity affecting acute February 26, 2025 1:20pm acute February 26 1:20pm Supervision of high-risk acute February 26, 2025 1:20pm Diabetes in chronic Jan 1:20pm Hypertension chronic February 26, 2 025 1:20pm [facility] Work Phone: 1(699) 445-238604-21-2025 Evaluation note* Diagnosis Onset Date Resolution Status Admit Date Anxiety acute November 20 9:19am Diabetes mellitus acute November 012024 9:19am Family history of chromosoma l abnormality acute November 20, 2024 9:19am GBS (group B streptococcus) UTI complicating acute November 20, 2024 9:19am Obesity affecting acute November 20, 2024 9:19am acute November 20 9:19am Supervision of high-risk acute November 20, 2024 9:19am Hypertension chronic November 20, 2024 9:19am Type 2 diabetes mellitus affecting in first trimester, antepartum deleted October 9:19am Anxiety acute December 18, 2024 3:36pm Diabetes mellitus acute November 3:36pm Family history of chromosoma l abnormality acute December 18, 2024 3 :36pm GBS (group B streptococcus) UTI complicating acute November 302024 3:36pm Obesity affecting acute December 18, 2024 3:36pm acute December 18, 2024 3:36pm Supervision of high-risk acute December 18, 2024 3 :36pm Hypertension chronic December 18 3:36pm Low lying placenta, antepartum resol diaz December 18, 2024 3:36pm Type 2 diabetes mellitus affecting in first trimester, antepartum deleted December 18, 2024 3:36pm Diabetes in chronic Dec 9:02am Hypertension chronic January 01 9:02am Anxiety acute January 17 3:37pm Diabetes mellitus acute January 172024 3:37pm Family history of chromosoma l abnormality acute January 17, 2025 3:37pm GBS (group B streptococcus) UTI complicating acute January 17, 2025 3:37pm Obesity affecting acute January 17, 2025 3:37pm acute January 17 3:37pm Supervision of high-risk acute January 17, 2025 3:37pm Diabetes in chronic Dec 3:37pm Hypertension chronic January 17, 2 025 3:37pm Low lying placenta, antepartum resol diaz January 17, 2025 3:37pm Anxiety acute February 12 1:37pm Diabetes mellitus acute February 122024 1:37pm Family history of chromosoma l abnormality acute February 12, 2025 1:37pm GBS (group B streptococcus) UTI complicating acute February 12, 2025 1:37pm Obesity affecting acute February 12, 2025 1:37pm acute February 12 1:37pm Supervision of high-risk acute February 12, 2025 1:37pm Diabetes in chronic Jan 1:37pm Hypertension chronic February 12, 2 025 1:37pm Low lying placenta, antepartum resol diaz February 12, 2025 1:37pm Anxiety acute February 26 1:20pm Diabetes mellitus acute February 262024 1:20pm Family history of chromosoma l abnormality acute February 26, 2025 1:20pm GBS (group B streptococcus) UTI complicating acute February 26, 2025 1:20pm Obesity affecting acute February 26, 2025 1:20pm acute February 26 1:20pm Supervision of high-risk acute February 26, 2025 1:20pm Diabetes in chronic Jan 1:20pm Hypertension chronic February 26, 2 025 1:20pm Anxiety acute March 09 1:41pm Diabetes mellitus acute March 09, 2025 1:41pm Family history of chromosoma l abnormality acute March 09, 2025 1:41pm GBS (group B streptococcus) UTI complicating acute 2024 1:41pm Obesity affecting acute March 09, 2025 1:41pm acute March 09 1:41pm Supervision of high-risk acute March 09, 2025 1:41pm Diabetes in chronic Mar 1:41pm Hypertension chronic March 09, 2025 1:41pm [facility] Work Phone: 1(253) 387-617504-21-2025 Evaluation note* Diagnosis Onset Date Resolution Status Admit Date Anxiety acute November 20 9:19am Diabetes mellitus acute November 012024 9:19am Family history of chromosoma l abnormality acute November 20, 2024 9:19am GBS (group B streptococcus) UTI complicating acute November 20, 2024 9:19am Obesity affecting acute November 20, 2024 9:19am acute November 20 9:19am Supervision of high-risk acute November 20, 2024 9:19am Hypertension chronic November 20, 2024 9:19am Type 2 diabetes mellitus affecting in first trimester, antepartum deleted October 9:19am Anxiety acute December 18, 2024 3:36pm Diabetes mellitus acute November 3:36pm Family history of chromosoma l abnormality acute December 18, 2024 3 :36pm GBS (group B streptococcus) UTI complicating acute November 302024 3:36pm Obesity affecting acute December 18, 2024 3:36pm acute December 18, 2024 3:36pm Supervision of high-risk acute December 18, 2024 3 :36pm Hypertension chronic December 18 3:36pm Low lying placenta, antepartum resol diaz December 18, 2024 3:36pm Type 2 diabetes mellitus affecting in first trimester, antepartum deleted December 18, 2024 3:36pm Diabetes in chronic Dec 9:02am Hypertension chronic January 01 9:02am Anxiety acute January 17 3:37pm Diabetes mellitus acute January 172024 3:37pm Family history of chromosoma l abnormality acute January 17, 2025 3:37pm GBS (group B streptococcus) UTI complicating acute January 17, 2025 3:37pm Obesity affecting acute January 17, 2025 3:37pm acute January 17 3:37pm Supervision of high-risk acute January 17, 2025 3:37pm Diabetes in chronic Rene 2024 3:37pm Hypertension chronic January 17, 2 025 3:37pm Low lying placenta, antepartum resol diaz January 17, 2025 3:37pm Anxiety acute February 12 1:37pm Diabetes mellitus acute February 122024 1:37pm Family history of chromosoma l abnormality acute February 12, 2025 1:37pm GBS (group B streptococcus) UTI complicating acute February 12, 2025 1:37pm Obesity affecting acute February 12, 2025 1:37pm acute February 12 1:37pm Supervision of high-risk acute February 12, 2025 1:37pm Diabetes in chronic Jan 1:37pm Hypertension chronic February 12, 2 025 1:37pm Low lying placenta, antepartum resol diaz February 12, 2025 1:37pm Anxiety acute February 26 1:20pm Diabetes mellitus acute February 262024 1:20pm Family history of chromosoma l abnormality acute February 26, 2025 1:20pm GBS (group B streptococcus) UTI complicating acute February 26, 2025 1:20pm Obesity affecting acute February 26, 2025 1:20pm acute February 26 1:20pm Supervision of high-risk acute February 26, 2025 1:20pm Diabetes in chronic Jan 1:20pm Hypertension chronic February 26, 2 025 1:20pm Anxiety acute March 09 1:41pm Diabetes mellitus acute March 09, 2025 1:41pm Family history of chromosoma l abnormality acute March 09, 2025 1:41pm GBS (group B streptococcus) UTI complicating acute 2024 1:41pm Obesity affecting acute March 09, 2025 1:41pm acute March 09 1:41pm Supervision of high-risk acute March 09, 2025 1:41pm Diabetes in chronic Mar 1:41pm Hypertension chronic March 09, 2025 1:41pm Anxiety acute March 16, 2 025 1:26pm Diabetes mellitus acute March 16, 2025 1:26pm Family history of chromosoma l abnormality acute March 16 1:26pm GBS (group B streptococcus) UTI complicating acute 2024 1:26pm Obesity affecting acute March 16, 2025 1:26pm acute March 16, 2 025 1:26pm Supervision of high-risk acute March 16 1:26pm Diabetes in chronic Mar us2024 1:26pm Hypertension chronic March 16, 2025 1:26pm [facility] Work Phone: 1(308) 726-964904-21-2025 Evaluation note* Diagnosis Onset Date Resolution Status Admit Date Anxiety acute November 20 9:19am Diabetes mellitus acute November 012024 9:19am Family history of chromosoma l abnormality acute November 20, 2024 9:19am GBS (group B streptococcus) UTI complicating acute November 20, 2024 9:19am Obesity affecting acute November 20, 2024 9:19am acute November 20 9:19am Supervision of high-risk acute November 20, 2024 9:19am Hypertension chronic November 20, 2024 9:19am Type 2 diabetes mellitus affecting in first trimester, antepartum deleted October 9:19am Anxiety acute December 18, 2024 3:36pm Diabetes mellitus acute November 3:36pm Family history of chromosoma l abnormality acute December 18, 2024 3 :36pm GBS (group B streptococcus) UTI complicating acute November 302024 3:36pm Obesity affecting acute December 18, 2024 3:36pm acute December 18, 2024 3:36pm Supervision of high-risk acute December 18, 2024 3 :36pm Hypertension chronic December 18 3:36pm Low lying placenta, antepartum resol diaz December 18, 2024 3:36pm Type 2 diabetes mellitus affecting in first trimester, antepartum deleted December 18, 2024 3:36pm Diabetes in chronic Dec 9:02am Hypertension chronic January 01 9:02am Anxiety acute January 17 3:37pm Diabetes mellitus acute January 172024 3:37pm Family history of chromosoma l abnormality acute January 17, 2025 3:37pm GBS (group B streptococcus) UTI complicating acute January 17, 2025 3:37pm Obesity affecting acute January 17, 2025 3:37pm acute January 17 3:37pm Supervision of high-risk acute January 17, 2025 3:37pm Diabetes in chronic Dec 3:37pm Hypertension chronic January 17, 2 025 3:37pm Low lying placenta, antepartum resol diaz January 17, 2025 3:37pm Anxiety acute February 12 1:37pm Diabetes mellitus acute February 122024 1:37pm Family history of chromosoma l abnormality acute February 12, 2025 1:37pm GBS (group B streptococcus) UTI complicating acute February 12, 2025 1:37pm Obesity affecting acute February 12, 2025 1:37pm acute February 12 1:37pm Supervision of high-risk acute February 12, 2025 1:37pm Diabetes in chronic Jan 1:37pm Hypertension chronic February 12, 2 025 1:37pm Low lying placenta, antepartum resol diaz February 12, 2025 1:37pm Anxiety acute February 26 1:20pm Diabetes mellitus acute February 262024 1:20pm Family history of chromosoma l abnormality acute February 26, 2025 1:20pm GBS (group B streptococcus) UTI complicating acute February 26, 2025 1:20pm Obesity affecting acute February 26, 2025 1:20pm acute February 26 1:20pm Supervision of high-risk acute February 26, 2025 1:20pm Diabetes in chronic Jan 1:20pm Hypertension chronic February 26, 2 025 1:20pm Anxiety acute March 09 1:41pm Diabetes mellitus acute March 09, 2025 1:41pm Family history of chromosoma l abnormality acute March 09, 2025 1:41pm GBS (group B streptococcus) UTI complicating acute Aug2024 1:41pm Obesity affecting acute March 09, 2025 1:41pm acute March 09 1:41pm Supervision of high-risk acute March 09, 2025 1:41pm Diabetes in chronic Mar 1:41pm Hypertension chronic March 09, 2025 1:41pm Anxiety acute March 16, 2 025 1:26pm Diabetes mellitus acute March 16, 2025 1:26pm Family history of chromosoma l abnormality acute March 16 1:26pm GBS (group B streptococcus) UTI complicating acute 2024 1:26pm Obesity affecting acute March 16, 2025 1:26pm acute March 16, 2 025 1:26pm Supervision of high-risk acute March 16 1:26pm Diabetes in chronic Mar 1:26pm Hypertension chronic March 16, 2025 1:26pm Variable deceleration acute Mar 2:15pm [facility] Work Phone: 1(990) 835-529604-21-2025 Telephone encounter Note* Telephone Encounter - Lashell Glover LPN - 11/20/2024 8:36 AM EDT Last OV 10/10/23. Next OV 03/02/25. [id number] Miscellaneous Notes* Telephone Encounter - Lashell Glover LPN - 11/20/2024 8:36 AM EDT Last OV 10/10/23. Next OV 03/02/25. documented in this [id number] Evaluation note* Diagnosis Onset Date Resolution Status Admit Date Anxiety acute October 23 2:29pm Diabetes mellitus acute October 012024 2:29pm Family history of chromosoma l abnormality acute October 23, 2024 2:29pm GBS (group B streptococcus) UTI complicating acute September 2:29pm Obesity affecting acute October 23, 2024 2:29pm acute October 23 2:29pm Supervision of high-risk acute October 23, 2024 2:29pm Hypertension chronic October 23, 2024 2:29pm Type 2 diabetes mellitus affecting in first trimester, antepartum deleted September 2:29pm Anxiety acute November 20 9:19am Diabetes mellitus acute November 012024 9:19am Family history of chromosoma l abnormality acute November 20, 2024 9:19am GBS (group B streptococcus) UTI complicating acute October 9:19am Obesity affecting acute November 20, 2024 9:19am acute November 20 9:19am Supervision of high-risk acute November 20, 2024 9:19am Hypertension chronic November 20, 2024 9:19am Type 2 diabetes mellitus affecting in first trimester, antepartum deleted October 9:19am Anxiety acute December 18, 2024 3:36pm Diabetes mellitus acute November 3:36pm Family history of chromosoma l abnormality acute December 18, 2024 3 :36pm GBS (group B streptococcus) UTI complicating acute December 18, 2024 3:36pm Low lying placenta, antepartum acute December 18, 2024 3:36pm Obesity affecting acute December 18, 2024 3:36pm acute December 18, 2024 3:36pm Supervision of high-risk acute December 18, 2024 3 :36pm Hypertension chronic December 18 3:36pm Type 2 diabetes mellitus affecting in first trimester, antepartum deleted December 18, 2024 3:36pm Diabetes in chronic Dec 9:02am Hypertension chronic January 01 9:02am Anxiety acute January 17 3:37pm Diabetes mellitus acute January 172024 3:37pm Family history of chromosoma l abnormality acute January 17, 2025 3:37pm GBS (group B streptococcus) UTI complicating acute December 3:37pm Low lying placenta, antepartum acute January 17, 2025 3:37pm Obesity affecting acute January 17, 2025 3:37pm acute January 17 3:37pm Supervision of high-risk acute January 17, 2025 3:37pm Diabetes in chronic Dec 3:37pm Hypertension chronic January 17, 2 025 3:37pm Anxiety acute February 12 1:37pm Diabetes mellitus acute February 122024 1:37pm Family history of chromosoma l abnormality acute February 12, 2025 1:37pm GBS (group B streptococcus) UTI complicating acute January 1:37pm Low lying placenta, antepartum acute February 12, 2025 1:37pm Obesity affecting acute February 12, 2025 1:37pm acute February 12 1:37pm Supervision of high-risk acute February 12, 2025 1:37pm Diabetes in chronic Jan 1:37pm Hypertension chronic February 12, 2 025 1:37pm [facility] Work Phone: 1(270) 631-740502-24-2025 Evaluation note* Diagnosis Onset Date Resolution Status Admit Date Anxiety acute September 25, 2024 8:32am Diabetes mellitus acute 2024 8:32am Family history of chromosoma l abnormality acute September 25 025 8:32am Obesity affecting acute September 25, 2024 8:32am acute September 25, 2024 8:32am Supervision of high-risk acute September 25 8:32am Hypertension chronic September 8:32am Type 2 diabetes mellitus affecting in first trimester, antepartum acute September 032024 1:53pm [facility] Work Phone: 1(444) 871-896902-24-2025 Evaluation note* Diagnosis Onset Date Resolution Status Admit Date Anxiety acute September 25, 2024 8:32am Diabetes mellitus acute 2024 8:32am Family history of chromosoma l abnormality acute September 25, 2 025 8:32am Obesity affecting acute September 25, 2024 8:32am acute September 25, 2024 8:32am Supervision of high-risk acute September 25 2 025 8:32am Hypertension chronic September 8:32am Type 2 diabetes mellitus affecting in first trimester, antepartum acute September 032024 1:53pm Anxiety acute October 23 2:29pm Diabetes mellitus acute October 012024 2:29pm Family history of chromosoma l abnormality acute October 23, 2024 2:29pm GBS (group B streptococcus) UTI complicating acute October 23, 2024 2:29pm Obesity affecting acute October 23, 2024 2:29pm acute October 23 2:29pm Supervision of high-risk acute October 23, 2024 2:29pm Type 2 diabetes mellitus affecting in first trimester, antepartum acute September 2:29pm Hypertension chronic October 23, 2024 2:29pm Anxiety acute November 20 9:19am Diabetes mellitus acute November 012024 9:19am Family history of chromosoma l abnormality acute November 20, 2024 9:19am GBS (group B streptococcus) UTI complicating acute November 20, 2024 9:19am Obesity affecting acute November 20, 2024 9:19am acute November 20 9:19am Supervision of high-risk acute November 20, 2024 9:19am Type 2 diabetes mellitus affecting in first trimester, antepartum acute October 9:19am Hypertension chronic November 20, 2024 9:19am Anxiety acute December 18, 2024 3:36pm Diabetes mellitus acute November 3:36pm Family history of chromosoma l abnormality acute December 18, 2024 3 :36pm GBS (group B streptococcus) UTI complicating acute November 302024 3:36pm Low lying placenta, antepartum acute December 18, 2024 3:36pm Obesity affecting acute December 18, 2024 3:36pm acute December 18, 2024 3:36pm Supervision of high-risk acute December 18, 2024 3 :36pm Type 2 diabetes mellitus affecting in first trimester, antepartum acute December 18, 2024 3:36pm Hypertension chronic December 18 3:36pm [facility] Work Phone: 1(125) 749-663002-24-2025 Evaluation note* Diagnosis Onset Date Resolution Status Admit Date Anxiety acute September 25, 2024 8:32am Diabetes mellitus acute 2024 8:32am Family history of chromosoma l abnormality acute September 25 8:32am Obesity affecting acute September 25, 2024 8:32am acute September 25, 2024 8:32am Supervision of high-risk acute September 25 8:32am Hypertension chronic September 8:32am Type 2 diabetes mellitus affecting in first trimester, antepartum deleted September 032024 1:53pm Anxiety acute October 23 2:29pm Diabetes mellitus acute October 012024 2:29pm Family history of chromosoma l abnormality acute October 23, 2024 2:29pm GBS (group B streptococcus) UTI complicating acute October 23, 2024 2:29pm Obesity affecting acute October 23, 2024 2:29pm acute October 23 2:29pm Supervision of high-risk acute October 23, 2024 2:29pm Hypertension chronic October 23, 2024 2:29pm Type 2 diabetes mellitus affecting in first trimester, antepartum deleted September 2:29pm Anxiety acute November 20 9:19am Diabetes mellitus acute November 012024 9:19am Family history of chromosoma l abnormality acute November 20, 2024 9:19am GBS (group B streptococcus) UTI complicating acute November 20, 2024 9:19am Obesity affecting acute November 20, 2024 9:19am acute November 20 9:19am Supervision of high-risk acute November 20, 2024 9:19am Hypertension chronic November 20, 2024 9:19am Type 2 diabetes mellitus affecting in first trimester, antepartum deleted October 9:19am Anxiety acute December 18, 2024 3:36pm Diabetes mellitus acute November 3:36pm Family history of chromosoma l abnormality acute December 18, 2024 3 :36pm GBS (group B streptococcus) UTI complicating acute November 302024 3:36pm Low lying placenta, antepartum acute December 18, 2024 3:36pm Obesity affecting acute December 18, 2024 3:36pm acute December 18, 2024 3:36pm Supervision of high-risk acute December 18, 2024 3 :36pm Hypertension chronic December 18 3:36pm Type 2 diabetes mellitus affecting in first trimester, antepartum deleted December 18, 2024 3:36pm Diabetes in chronic Dec 9:02am Hypertension chronic January 01 9:02am Anxiety acute January 17 3:37pm Diabetes mellitus acute January 172024 3:37pm Family history of chromosoma l abnormality acute January 17, 2025 3:37pm GBS (group B streptococcus) UTI complicating acute January 17, 2025 3:37pm Low lying placenta, antepartum acute January 17, 2025 3:37pm Obesity affecting acute January 17, 2025 3:37pm acute January 17 3:37pm Supervision of high-risk acute January 17, 2025 3:37pm Diabetes in chronic Dec 3:37pm Hypertension chronic January 17, 2 025 3:37pm [place] [facility] Work Phone: [phone]) [phone] Telephone encounter Note* Telephone Encounter - Annette Novoa RN - 08/10/2024 2:49 PM EST Last office visit 01/10/2024, next scheduled office visit 09/19/2024 [id number] Miscellaneous Notes* Telephone Encounter - Annette Novoa RN - 08/10/2024 2:49 PM EST Last office visit 01/10/2024, next scheduled office visit 09/19/2024 documented in this [id number] Telephone encounter Note* Telephone Encounter - Lashell Glover LPN - 2024 1:00 PM EST Last OV 01/10/24. Next OV 09/19/24. [id number] Miscellaneous Notes* Telephone Encounter - Lashell Glover LPN - 2024 1:00 PM EST Last OV 01/10/24. Next OV 09/19/24. documented in this [id number] Telephone encounter Note* Telephone Encounter - Lashell Glover LPN - 04/17/2024 8:17 AM EDT Last OV 01/10/24. Next OV 07/03/24. [id number] Miscellaneous Notes* Telephone Encounter - Lashell Glover LPN - 04/17/2024 8:17 AM EDT Last OV 01/10/24. Next OV 07/03/24. documented in this [id number] History of Present illness Narrative* Zita Randolph MD - 01/10/2024 4:07 PM EDT Chief Complaint Patient presents with Follow-up HPI: Tasia Almaguer is a 33 y.o. female presenting for follow-up on diabetes control. PMH of anxiety,hypertension, diabetes and obesity. Anxiety: Has been feeling more anxious lately, always on her edge and irritated by small things. Has also had 1 panic attack when she was on a rafting trip with her . Currently having custody of her 2 nieces for 1 to 2 years which was 1 her anxiety started to become more significant. Denies any concerns for smoking, alcohol or drug use. Has family history of anxiety in her sister. No concern for depression symptoms, sleep disorders, SI or HI. Feeling safe at home. GAD7 score of 21, stared on zoloft last time at 50 mg as well as melatonin for insomnia. Has been doing well with Zoloft, requesting refills today. Diabetes: A1c was high at 9.9 as of September 2020. Was started on metformin and Lantus at that time. After whichshe got and was managed through endocrinology in [place] office with Dr. Dunne. Patient at that time was on metformin and insulin, was checking her blood sugars during and was committed to dietary restrictions. Was discharged from OB and endocrinology care, did not follow-up until 6 months where she was off all her medications. Went back on metformin and Ozempic that was not approved, Trulicity was given and gave her really bad abdominal cramps. Concerns for noncompliance on medications and was lost to follow-up in a while for which A1c was up to 11%. Has not been on insulin and ran out and was not given any back. Established with endocrinology will try to get her on Ozempic along with metformin and was not on insulin and ran out and was not given any back. Endocrinology in [facility] got her on a GLP-1 agonist but it was not covered, she talked to her insurance and they claimed that it was a weight loss medicine and was told she has to meet her deductible to cover for Ozempic. Hypertension: Reports that it is in the first time that she had her blood pressure checked and elevated in the doctor's office. Was never treated for hypertension in the past. Has positive hypertension history in mom. Denies any concerns for abdominal pain, headache, blurry vision, tingling/numbness in extremities. Blood pressure is elevated again today, agreeable to adhere to salt restriction and monitor blood pressure at home.. Past Medical History: Diagnosis Date Anxiety Diabetes mellitus (HCC) 2020 Past Surgical History: Procedure Laterality Date ADENOIDECTOMY TONSILLECTOMY Family History Problem Relation Age of Onset Diabetes Mother Hypertension Mother Hyperlipidemia Father Diabetes Sister Asthma Sister Anxiety Sister Diabetes Paternal Grandmother Social History Tobacco Use Smoking status: Never Smokeless tobacco: Never Vaping Use Vaping Use: Never used Substance Use Topics Alcohol use: Not Currently Drug use: Never Review of Systems Physical Exam Constitutional: General: She is not in acute distress. Appearance: She is not ill-appearing. HENT: Head: Normocephalic and atraumatic. Right Ear: Tympanic membrane, ear canal and external ear normal. Left Ear: Tympanic membrane, ear canal and external ear normal. Nose: Nose normal. Mouth/Throat: Mouth: Mucous membranes are moist. Pharynx: Oropharynx is clear. No oropharyngeal exudate or posterior oropharyngeal erythema. Eyes: Extraocular Movements: Extraocular movements intact. Conjunctiva/sclera: Conjunctivae normal. Pupils: Pupils are equal, round, and reactive to light. Cardiovascular: Rate and Rhythm: Normal rate and regular rhythm. Pulses: Normal pulses. Heart sounds: Normal heart sounds. No murmur heard. No gallop. Pulmonary: Effort: Pulmonary effort is normal. Breath sounds: Normal breath sounds. No wheezing, rhonchi or rales. Chest: Chest wall: No tenderness. Abdominal: General: Abdomen is flat. Bowel sounds are normal. There is no distension. Palpations: Abdomen is soft. There is no mass. Tenderness: There is no abdominal tenderness. There is no right CVA tenderness, left CVA tenderness, guarding or rebound. Musculoskeletal: General: No tenderness. Normal range of motion. Cervical back: Normal range of motion and neck supple. No rigidity. No muscular tenderness. Right lower leg: No edema. Left lower leg: No edema. Lymphadenopathy: Cervical: No cervical adenopathy. Skin: General: Skin is warm. Findings: No erythema or rash. Neurological: General: No focal deficit present. Mental Status: She is alert and oriented to person, place, and time. Sensory: No sensory deficit. Motor: No weakness. Gait: Gait normal. Psychiatric: Mood and Affect: Mood normal. Behavior: Behavior normal. Thought Content: Thought content normal. Judgment: Judgment normal. OARRS/NARxCHECK Report Received and Assessed: Date controlled substance agreement signed: No data found Date of last drug screen: Patient's Medications New Prescriptions TIRZEPATIDE (MOUNJARO) 2.5 MG/0.5 ML PEN Inject 0.5 mL under the skin every 7 days . Previous Medications BD KIAH 2ND GEN PEN NEEDLE 32 GAUGE X 5/32 NDLE Inject 1 each under the skin daily . BLOOD-GLUCOSE METER MISC Once daily every morning before breakfast. . DESOGESTREL-ETHINYL ESTRADIOL (APRI) 0.15-0.03 MG PER TABLET Take 1 (one) tablet by mouth daily . INSULIN DEGLUDEC (TRESIBA FLEXTOUCH U-100) 100 UNIT/ML (3 ML) INPN Inject 25 (twenty five) Units under the skin at bedtime . LANCETS MISC 1 Lancet by Miscellaneous route daily . LIRAGLUTIDE (VICTOZA 2-MIGUEL) 0.6 MG/0.1 ML (18 MG/3 ML) PEN Inject 1.2 mg under the skin daily . Modified Medications Modified Medication Previous Medication LOSARTAN (COZAAR) 50 MG TABLET losartan (COZAAR) 50 MG tablet Take 1 (one) tablet (50 mg total) by mouth daily . Take 1 (one) tablet (50 mg total) by mouth daily. METFORMIN (GLUCOPHAGE-XR) 500 MG 24 HR TABLET metFORMIN (GLUCOPHAGE-XR) 500 MG 24 hr tablet Take 2 (two) tablets (1,000 mg total) by mouth 2 (two) times a day with breakfast and lunch . Take 2 (two) tablets (1,000 mg total) by mouth 2 (two) times a day with breakfast and lunch . SERTRALINE (ZOLOFT) 50 MG TABLET sertraline (ZOLOFT) 50 MG tablet Take 1 (one) tablet (50 mg total) by mouth daily . Take 1 (one) tablet (50 mg total) by mouth daily. Discontinued Medications No medications on file Health Maintenance Due Topic Date Due Pneumococcal Vaccine: Ped or At-Risk (1 of 2 - PCV) Never done Diabetic Foot Exam Never done Diabetic Eye Exam Never done Urine Microalbumin Never done HIV Screening Never done Hepatitis C Screening Never done COVID-19 Vaccine (2022-24 season) Never done A1C 09/09/2023 Assessment & Plan Problem List Items Addressed This Visit Endocrine Diabetes mellitus (HCC) Relevant Medications metFORMIN (GLUCOPHAGE-XR) 500 MG 24 hr tablet sertraline (ZOLOFT) 50 MG tablet tirzepatide (MOUNJARO) 2.5 mg/0.5 mL Pen Other Relevant Orders TSH with Reflex Free T4 Microalbumin/Creatinine Ratio, UR Random Hemoglobin A1c Lipid Panel Comprehensive Metabolic Panel Cardiovascular and Mediastinum HTN (hypertension) Relevant Medications losartan (COZAAR) 50 MG tablet Other Obesity, morbid, BMI 40.0-49.9 (HCC) - Primary Anxiety and depression Relevant Medications sertraline (ZOLOFT) 50 MG tablet Other Visit Diagnoses control counseling Assessment & Plan 1. Diabetes Mellitus. A prescription for Mounjaro has been issued. Additionally, a blood work order has been issued. Refilled metformin, she is encouraged to reach out again to endocrinology for follow-up as she might need insulin until GLP-1 or other injectables are approved for 2. Contraceptive management. The patient's use of Apri is deemed acceptable, however, due to her slightly overweight status, thelong-term risk of blood clots is increased. The patient will persist with her Apri regimen. The useof Nexplanon or intrauterine device (IUD) has been discussed. She will think about it and talk to OB about it as well. Follow-up The patient is scheduled for a follow-up visit in 6 months. After discussing the use of ambient listening and audio recording in generating medical documentation, the patient verbally consented to use of this technology for today's visit. My ongoing relationship with Tasia Almaguer requires continued responsibility and cognitive effort of being the focal point for all services related to chronic condition(s). Return in about 6 months (around 07/11/2024) for Annual Exam. ZITA RANDOLPH MD [facility] [address] [place] [id number] Dept: [phone] 10/07/2020 9:00 AM 12/23/2021 9:44 AM Depression Screening Little interest or pleasure in doing things 0 0 Feeling down, depressed, or hopeless 0 0 PHQ-2 Total Score 0 0 Trouble falling or staying asleep, or sleeping too much 1 0 Feeling tired or having little energy 0 1 Poor appetite or overeating 0 1 Feeling bad about yourself - or that you are a failure or have let yourself or your family down 0 0 Trouble concentrating on things, such as reading the newspaper or watching television 1 0 Moving or speaking so slowly that other people could have noticed. Or the opposite - being so fidgety or restless that you have been moving around a lot more than usual 0 0 Thoughts that you would be better off , or of hurting yourself in some way 0 0 PHQ-9 Total Score 2 2 If you checked off any problems, how difficult have these problems made it for you to do your work,take care of things at home, or get along with other people? Not difficult at all documented in this [id number] Telephone encounter Note* Telephone Encounter - Shavon Grady RN - 09/15/2023 9:43 AM EST LAST OV 12/22/22. NEXT OV SCHEDULED FOR 01/10/24. [id number] Miscellaneous Notes* Telephone Encounter - Shavon Grady RN - 09/15/2023 9:43 AM EST LAST OV 12/22/22. NEXT OV SCHEDULED FOR 01/10/24. documented in this [id number] NoteHNO ID: [id number] Author: Yossi Alcazar V, MD Service: ? Author Type: Physician Type: Progress Notes Filed: 07/07/2023 5:35 PM Note Text: NEW PATIENT VISIT Consulted by: Self ASSESSMENT AND RECOMMENDATIONS: Nidhi Almaguer is a 32 year old female with 1.DM Type 2 /Glycemic control Microvascular complications:hypertension Macrovascular complications: None Per ADA guidelines, target HbA1C is less than 7.0% . I recommend a target HbA1c of 6.5 for this patient (Taking into consideration age, presence or absence of modifiable and non- modifiable co- morbidities and social circumstances) Hemoglobin A1C (POCT) (%) Date Value 06/09/2023 11.0 ) PLAN: (E11.9) Type 2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 Problem(s): Elevated BP without diagnosis of hypertension Continue to monitor at home and adhere to salt restriction. No issues with gestational hypertension. [id number] Evaluation + Plan note* Assessment & Plan Note - Zita Randolph MD - 12/23/2021 1:29 PM EDTAssociated Problem(s): Diabetes mellitus (HCC) A1c is 9.6 today 12/23/2021. Need to start back on metformin, increasing to 1000 mg twice daily along with addition of GLP-1 agonist, starting on Ozempic today 8.5 mg discussed side effects and benefits. Following up in 4 weeks. Blood work ordered today. We will review foot exam in the next visit and eye exam which she has scheduled for next week. [id number] History of Present illness Narrative* Monica Harrison MA - 12/23/2021 9:29 AM EDT Images from the original note were not included. Message Received: Today MD Monica Baca MA; Lubna Coffey MA Please get records from endocrinology in [place] Dr.Toni Dunne please . Thank you, ZITA RANDOLPH MD Family Medicine Physician [place] [phone] [facility] FAXED * Zita Randolph MD - 12/23/2021 9:12 AM EDT Chief Complaint Patient presents with Medication Refill HPI: Tasia Almaguer is a 30-year-old female presenting today for routine check. Patient has not followed up on her anxiety or diabetes since she delivered 6 months ago. Anxiety: Has been feeling more anxious lately, always on her edge and irritated by small things. Has also had 1 panic attack when she was on a rafting trip with her . Currently having custody of her 2 nieces for 1 to 2 years which was 1 her anxiety started to become more significant. Denies any concerns for smoking, alcohol or drug use. Has family history of anxiety in her sister. No concern for depression symptoms, sleep disorders, SI or HI. Feeling safe at home. GAD7 score of 21, stared on zoloft last time at 50 mg as well as melatonin for insomnia. She has been doing great on Zoloft 50, initially had dizziness as a side effect of the medication but at this time she feels great on it and is comfortable with the dose feeling less irritable and her mood has been much better. Diabetes: A1c was high at 9.9 as of September 2020. Was started on metformin and Lantus at that time. After whichshe got and was managed through endocrinology in [place] office with Dr. Dunne. Patient at that time was on metformin and insulin, was checking her blood sugars during and was committed to dietary restrictions. Patient is currently not breast-feeding. Was discharged from OB and endocrinology care 6 months ago coming today for follow-up. Was discharged 500 mg BID but was running out of her metformin supply that she decided to switch to once a day until she comes to see me.. Has been checking BS at home not in the last 2 month pre-meal BS was in the 140's. Concerned about dietary changes and what she is supposed to and not supposed to eat. Elevated blood pressure: Reports that it is in the first time that she had her blood pressure checked and elevated in the doctor's office. Was never treated for hypertension in the past. Has positive hypertension history in mom. Denies any concerns for abdominal pain, headache, blurry vision, tingling/numbness in extremities. Blood pressure is elevated again today, agreeable to adhere to salt restriction and monitor blood pressure at home.. Past Medical History: Diagnosis Date Anxiety Diabetes mellitus (HCC) 2020 Past Surgical History: Procedure Laterality Date ADENOIDECTOMY TONSILLECTOMY Family History Problem Relation Age of Onset Diabetes Mother Hypertension Mother Hyperlipidemia Father Diabetes Sister Asthma Sister Anxiety Sister Diabetes Paternal Grandmother Social History Tobacco Use Smoking status: Never Smokeless tobacco: Never Vaping Use Vaping Use: Never used Substance Use Topics Alcohol use: Not Currently Drug use: Never Review of Systems Physical Exam Constitutional: General: She is not in acute distress. Appearance: She is not ill-appearing. HENT: Head: Normocephalic and atraumatic. Eyes: Extraocular Movements: Extraocular movements intact. Conjunctiva/sclera: Conjunctivae normal. Pupils: Pupils are equal, round, and reactive to light. Cardiovascular: Rate and Rhythm: Normal rate and regular rhythm. Pulses: Normal pulses. Heart sounds: Normal heart sounds. No murmur heard. No gallop. Pulmonary: Effort: Pulmonary effort is normal. Breath sounds: Normal breath sounds. No wheezing, rhonchi or rales. Chest: Chest wall: No tenderness. Abdominal: General: Abdomen is flat. Bowel sounds are normal. There is no distension. Palpations: Abdomen is soft. There is no mass. Tenderness: There is no abdominal tenderness. There is no right CVA tenderness, left CVA tenderness, guarding or rebound. Musculoskeletal: General: No tenderness. Normal range of motion. Cervical back: Normal range of motion and neck supple. No rigidity. No muscular tenderness. Right lower leg: No edema. Left lower leg: No edema. Lymphadenopathy: Cervical: No cervical adenopathy. Skin: General: Skin is warm. Findings: No erythema or rash. Neurological: General: No focal deficit present. Mental Status: She is alert and oriented to person, place, and time. Sensory: No sensory deficit. Motor: No weakness. Gait: Gait normal. Psychiatric: Mood and Affect: Mood normal. Behavior: Behavior normal. Thought Content: Thought content normal. Judgment: Judgment normal. OARRS/NARxCHECK Report Received and Assessed: No data found Date controlled substance agreement signed: No data found Date of last drug screen: No data found Functional Assessment: No data found Patient's Medications New Prescriptions METFORMIN (GLUCOPHAGE-XR) 500 MG 24 HR TABLET Take 2 (two) tablets (1,000 mg total) by mouth 2 (two) times a day with breakfast and lunch . SEMAGLUTIDE (OZEMPIC) 0.25 MG OR 0.5 MG(2 MG/1.5 ML) PEN Inject 0.5 (one-half) mg under the skin every 7 days . Previous Medications BD KIAH 2ND GEN PEN NEEDLE 32 GAUGE X 5/32 NDLE Inject 1 each under the skin daily . BLOOD-GLUCOSE METER MISC Once daily every morning before breakfast. . DESOGESTREL-ETHINYL ESTRADIOL (APRI) 0.15-0.03 MG PER TABLET Take 1 tablet by mouth daily . LANCETS MISC 1 Lancet by Miscellaneous route daily . Modified Medications Modified Medication Previous Medication SERTRALINE (ZOLOFT) 50 MG TABLET sertraline (ZOLOFT) 50 MG tablet Take 1 (one) tablet (50 mg total) by mouth daily . Take 1 (one) tablet (50 mg total) by mouth daily. Discontinued Medications INSULIN DEGLUDEC 100 UNIT/ML (3 ML) INPN Inject 12 (twelve) Units under the skin every evening . METFORMIN (GLUCOPHAGE) 500 MG TABLET Take 1 (one) tablet (500 mg total) by mouth daily with breakfast . Health Maintenance Due Topic Date Due Wellness Visit Never done COVID-19 Vaccine (1) Never done Pneumococcal Vaccine: Ped or At-Risk (1 - PCV) Never done Foot Exam Never done Ophthalmology Exam Never done Urine Microalbumin Never done HIV Screening Never done Hepatitis C Screening Never done Assessment & Plan Problem List Items Addressed This Visit Endocrine Diabetes mellitus (HCC) A1c is 9.6 today 12/23/2021. Need to start back on metformin, increasing to 1000 mg twice daily along with addition of GLP-1 agonist, starting on Ozempic today 8.5 mg discussed side effects and benefits. Following up in 4 weeks. Blood work ordered today. We will review foot exam in the next visit and eye exam which she has scheduled for next week. Relevant Medications semaglutide (Ozempic) 0.25 mg or 0.5 mg(2 mg/1.5 mL) Pen metFORMIN (GLUCOPHAGE-XR) 500 MG 24 hr tablet Other Relevant Orders POC Glycosylated Hemoglobin (Hb A1C) (Completed) Comprehensive Metabolic Panel (Completed) Lipid Panel (Completed) Microalbumin/Creatinine Ratio, UR Random TSH with Reflex Free T4 (Completed) Other Obesity, morbid, BMI 40.0-49.9 ([facility]) Anxiety and depression PHQ-9 score of 2, SCARLETT-7 score of 0. Continue on Zoloft 50 mg. Relevant Medications sertraline (ZOLOFT) 50 MG tablet Elevated BP without diagnosis of hypertension - Primary Continue to monitor at home and adhere to salt restriction. No issues with gestational hypertension. I spent 40 minutes with patient reviewing HPI and coordinating plan of care. Return in about 2 weeks (around 01/06/2022). ZITA RANDOLPH MD [facility] [address] [facility] [address] [facility] [id number] Dept: [phone] Depression Screening 10/07/2020 12/23/2021 Little interest or pleasure in doing things 0 0 Feeling down, depressed, or hopeless 0 0 PHQ-2 Total Score 0 0 Trouble falling or staying asleep, or sleeping too much 1 0 Feeling tired or having little energy 0 1 Poor appetite or overeating 0 1 Feeling bad about yourself - or that you are a failure or have let yourself or your family down 0 0 Trouble concentrating on things, such as reading the newspaper or watching television 1 0 Moving or speaking so slowly that other people could have noticed. Or the opposite - being so fidgety or restless that you have been moving around a lot more than usual 0 0 Thoughts that you would be better off , or of hurting yourself in some way 0 0 PHQ-9 Total Score 2 2 If you checked off any problems, how difficult have these problems made it for you to do your work,take care of things at home, or get along with other people? - Not difficult at all documented in this [id number] Miscellaneous Notes* Telephone Encounter - Sue Stevens MA - 07/17/2021 8:48 AM EST RECEIVED FAX FROM PHARMACY. REQUESTING REFILL ON QUEUED MEDICATION(S). LAST OV:10/24/20 NEXT OV:none scheduled documented in this [id number] History of Present illness Narrative* Jaci Diane RN - 03/12/2021 10:24 AM EDT Three call attempts were completed for Diabetes self care management education follow-up. Three Month follow up letter and questionnaire sent to patient. documented in this [id number] Miscellaneous Notes* Telephone Encounter - Shavon Grady RN - 01/16/2021 8:36 AM EDT RECEIVED REFILL REQUEST FROM PHARMACY. LAST OV 10/24/20. documented in this [id number] Miscellaneous Notes* Telephone Encounter - Shavon Grady RN - 11/25/2020 9:21 AM EDT RECEIVED FAX REQUESTING REFILL ON SERTRALINE. LAST OV 10/24/2020. [facility] Diagnosis Elevated BP without diagnosis of hypertension- Primary Type 2 diabetes mellitus without complication, unspecified whether fci insulin use (HCC) Obesity, morbid, BMI 40.0-49.9 (HCC) Anxiety and depression [facility] Diagnosis Type 2 diabetes mellitus without complication, unspecified whether fci insulin use (HCC) documented in this encounter [facility] note* Diagnosis Type 2 diabetes mellitus without complication, unspecified whether fci insulin use (HCC) documented in this encounter [facility] note* Diagnosis Type 2 diabetes mellitus without complication, unspecified whether fci insulin use (HCC) documented in this encounter [facility] note* Diagnosis Anxiety and depression Type 2 diabetes mellitus without complication, unspecified whether fci insulin use (HCC) documented in this encounter [facility] note* Diagnosis Hypertension, unspecified type- Primary Type 2 diabetes mellitus without complication, 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 (HCC) Anxiety and depression documented in this encounter [facility] note* Diagnosis Type 2 diabetes (HCC)- Primary Class 3 severe obesity with serious comorbidity and body mass index (BMI) of 40.0 to 44.9 in adult, unspecified obesity type (HCC) Hyperglycemia due to diabetes mellitus (HCC) documented in this encounter [facility] note* Diagnosis Anxiety and depression documented in this encounter [facility] note* Diagnosis Obesity, morbid, BMI 40.0-49.9 (HCC)- Primary Primary hypertension Unspecified essential hypertension Type 2 diabetes mellitus without complication, unspecified whether fci insulin use (HCC) Anxiety and depression control counseling documented in this encounter [facility] note* Diagnosis Type 2 diabetes mellitus without complication, 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 (HCC) documented in this encounter [facility] note* Diagnosis Encounter to establish care- Primary Anxiety and depression Obesity, morbid, BMI 40.0-49.9 (HCC) Elevated BP without diagnosis of hypertension Elevated BP without diagnosis of hypertension- Primary Type 2 diabetes mellitus without complication, 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 (HCC) Anxiety and depression Elevated BP without diagnosis of hypertension- Primary Type 2 diabetes mellitus without complication, unspecified whether fci insulin use (HCC) Obesity, morbid, BMI 40.0-49.9 (HCC) Anxiety and depression Sore throat- Primary Acute pharyngitis Right ear pain Unspecified otalgia Type 2 diabetes mellitus without complication, unspecified whether fci insulin use (HCC) Hypertension, unspecified type Hypertension, unspecified type- Primary Type 2 diabetes mellitus without complication, 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 (HCC) Anxiety and depression Type 2 diabetes mellitus without complication, unspecified whether fci insulin use (HCC)- Primary Primary hypertension Unspecified essential hypertension Obesity, morbid, BMI 40.0-49.9 (HCC) Type 2 diabetes mellitus without complication, unspecified whether fci insulin use (HCC) documented in this encounter [facility] note* Diagnosis Encounter to establish care- Primary Anxiety and depression Obesity, morbid, BMI 40.0-49.9 (HCC) Elevated BP without diagnosis of hypertension Elevated BP without diagnosis of hypertension- Primary Type 2 diabetes mellitus without complication, unspecified whether fci insulin use (HCC) Anxiety and depression Elevated BP without diagnosis of hypertension- Primary Type 2 diabetes mellitus without complication, 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 (HCC) Obesity, morbid, BMI 40.0-49.9 (HCC) Anxiety and depression Sore throat- Primary Acute pharyngitis Right ear pain Unspecified otalgia Type 2 diabetes mellitus without complication, 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 (HCC) Hypertension, unspecified type Hypertension, unspecified type- Primary Type 2 diabetes mellitus without complication, 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 (HCC) Anxiety and depression Type 2 diabetes mellitus without complication, unspecified whether fci insulin use (HCC)- Primary Primary hypertension Unspecified essential hypertension Obesity, morbid, BMI 40.0-49.9 (HCC) Type 2 diabetes mellitus without complication, 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 (HCC) documented in this encounter [facility] note* Diagnosis Encounter to establish care- Primary Anxiety and depression Obesity, morbid, BMI 40.0-49.9 (HCC) Elevated BP without diagnosis of hypertension Elevated BP without diagnosis of hypertension- Primary Type 2 diabetes mellitus without complication, 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 (HCC) Anxiety and depression Elevated BP without diagnosis of hypertension- Primary Type 2 diabetes mellitus without complication, unspecified whether fci insulin use (HCC) Obesity, morbid, BMI 40.0-49.9 (HCC) Anxiety and depression Sore throat- Primary Acute pharyngitis Right ear pain Unspecified otalgia Type 2 diabetes mellitus without complication, unspecified whether fci insulin use (HCC) Hypertension, unspecified type Hypertension, unspecified type- Primary Type 2 diabetes mellitus without complication, unspecified whether fci insulin use (HCC) Anxiety and depression Type 2 diabetes mellitus without complication, 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 (HCC)- Primary Primary hypertension Unspecified essential hypertension Obesity, morbid, BMI 40.0-49.9 (HCC) Acute otitis media, unspecified otitis media type- Primary documented in this encounter [facility] note* Diagnosis Encounter to establish care- Primary Anxiety and depression Obesity, morbid, BMI 40.0-49.9 (HCC) Elevated BP without diagnosis of hypertension Elevated BP without diagnosis of hypertension- Primary Type 2 diabetes mellitus without complication, 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 (HCC) Anxiety and depression Elevated BP without diagnosis of hypertension- Primary Type 2 diabetes mellitus without complication, 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 (HCC) Obesity, morbid, BMI 40.0-49.9 (HCC) Anxiety and depression Sore throat- Primary Acute pharyngitis Right ear pain Unspecified otalgia Type 2 diabetes mellitus without complication, unspecified whether fci insulin use (HCC) Hypertension, unspecified type Hypertension, unspecified type- Primary Type 2 diabetes mellitus without complication, unspecified whether fci insulin use (HCC) Anxiety and depression Type 2 diabetes mellitus without complication, 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 (HCC)- Primary Primary hypertension Unspecified essential hypertension Obesity, morbid, BMI 40.0-49.9 (HCC) Acute otitis media, unspecified otitis media type- Primary Hypertension, unspecified type- Primary Type 2 diabetes mellitus without complication, unspecified whether fci insulin use (HCC) Obesity, morbid, BMI 40.0-49.9 ([facility]) documented in this encounter [facility] note* Diagnosis Encounter to establish care- Primary Anxiety and depression Obesity, morbid, BMI 40.0-49.9 (HCC) Elevated BP without diagnosis of hypertension Elevated BP without diagnosis of hypertension- Primary Type 2 diabetes mellitus without complication, unspecified whether fci insulin use (HCC) Anxiety and depression Elevated BP without diagnosis of hypertension- Primary Type 2 diabetes mellitus without complication, unspecified whether fci insulin use (HCC) Obesity, morbid, BMI 40.0-49.9 (HCC) Anxiety and depression Sore throat- Primary Acute pharyngitis Right ear pain Unspecified otalgia Type 2 diabetes mellitus without complication, 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 (HCC) Hypertension, unspecified type Hypertension, unspecified type- Primary Type 2 diabetes mellitus without complication, unspecified whether fci insulin use (HCC) Anxiety and depression Type 2 diabetes mellitus without complication, 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 (HCC)- Primary Primary hypertension Unspecified essential hypertension Obesity, morbid, BMI 40.0-49.9 (HCC) Acute otitis media, unspecified otitis media type- Primary Hypertension, unspecified type- Primary Type 2 diabetes mellitus without complication, unspecified whether fci insulin use (HCC) Obesity, morbid, BMI 40.0-49.9 (HCC) [facility] (narrative)No reason for referral information availableWElyria Memorial Hospital Work Phone: Summary Purpose Family History No Family History Records Found Relationship Condition Age at Onset Recorded Date/T yoni mother Diabetes mellitus Unknown Hypertension Unknown father Hyperlipidemia Unknown sister Diabetes mellitus Unknown grandmother Diabetes mellitus Unknown Advance Directives No Advanced Directives Records FoundDocuments on File Type Date 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 Advance Directives 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 Living Will Documents on File Type Date Recorded 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 Advance Directives 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 Living Will Instructions * Patient Instructions* Zita Randolph MD - 10/07/2020 9:50 AM EST Problem List Items Addressed This Visit Other Obesity, morbid, BMI 40.0-49.9 (HCC) Relevant Orders Basic Metabolic Panel Lipid Panel Hemoglobin A1c Encounter to establish care - Primary Relevant Orders Basic Metabolic Panel Lipid Panel Hemoglobin A1c Anxiety and depression Relevant Medications sertraline (ZOLOFT) 50 MG tablet Other Relevant Orders TSH with Reflex Free T4 Elevated BP without diagnosis of hypertension Please take blood pressure in the same arm In a seated position for at least 5 minutes, and record readings keeping a log. If her blood pressure is at any time over 180/110, please give clinic a call. If high blood pressure with symptoms of headaches, blurry vision or tingling/numbness in extremities, please head to the ED for further management. Our goal blood pressure is below 130/80 for most adults Our goal blood pressure for ages over 65 is below 140/90 If any referrals were placed at the time of your visit please allow 2 weeks for processing. If you haven't heard from anyone within 2 weeks please contact my office so we can look into the status of your referral. If you were given any labs today please ensure they are completed according to the directions given. Once labs are completed please allow 1-2 weeks for us to receive the results, review them, and letyou know what steps, if any, are needed next. If you haven't heard from us after that please call to inquire. If labs were ordered to be done PRIOR to your next visit we will discuss the results at the time ofyour office visit. If any procedures or imaging studies were ordered that must be prior authorized please give us 2 weeks to get them approved. Once approved someone should call you to schedule them or give you a date and time that they were scheduled for. If you haven't heard anything within 2 weeks of the office visit please call the office so we can look into their status. Customer Service/Billing Questions: [phone] MyChart Assistance: [phone] or [phone] Financial Assistance: [phone] or [phone] As of August 07, 2019 my schedule will be changing: Wednesday 7 am to 5 pm Wednesday 7 am to 5 pm Wednesday 7 am to 5 pm Wednesday 7 am to 1 pm documented in this encounter* Patient Instructions* Zita Randolph MD - 10/24/2020 1:00 PM EDT Problem List Items Addressed This Visit None If any referrals were placed at the time of your visit please allow 2 weeks for processing. If you haven't heard from anyone within 2 weeks please contact my office so we can look into the status of your referral. If you were given any labs today please ensure they are completed according to the directions given. Once labs are completed please allow 1-2 weeks for us to receive the results, review them, and letyou know what steps, if any, are needed next. If you haven't heard from us after that please call to inquire. If labs were ordered to be done PRIOR to your next visit we will discuss the results at the time ofyour office visit. If any procedures or imaging studies were ordered that must be prior authorized please give us 2 weeks to get them approved. Once approved someone should call you to schedule them or give you a date and time that they were scheduled for. If you haven't heard anything within 2 weeks of the office visit please call the office so we can look into their status. Customer Service/Billing Questions: [phone] [facility] Assistance: [phone] or [phone] Financial Assistance: [phone] or [phone] As of August 07, 2019 my schedule will be changing: Wednesday 7 am to 5 pm Wednesday 7 am to 5 pm Wednesday closed 7 am to 5 pm Wednesday 7 am to 1 pm documented in this encounter History of Present Illness * Zita Randolph MD - 10/07/2020 9:11 AM EST Chief Complaint Patient presents with [facility] Care Anxiety FEEL LIKE BEEN GOING ON FOR YEARS BUT HAS INCREASED FEELING LATELY HPI: Tasia Almaguer is a 30-year-old female presenting today as a new patient to establish care, having concerns for anxiety. Relatively healthy with no pertinent past medical history other than morbid obesity. Anxiety: Has been feeling more anxious lately, always on her edge and irritated by small things. Has also had 1 panic attack when she was on a rafting trip with her . Currently having custody of her 2 nieces for 1 to 2 years which was 1 her anxiety started to become more significant. Denies any concerns for smoking, alcohol or drug use. Has family history of anxiety in her sister. No concern for depression symptoms, sleep disorders, SI or HI. Feeling safe at home. Elevated blood pressure: Reports that it is in the first time that she had her blood pressure checked and elevated in the doctor's office. Was never treated for hypertension in the past. Has positive hypertension history in mom. Denies any concerns for abdominal pain, headache, blurry vision, tingling/numbness in extremities. History reviewed. No pertinent past medical history. Past Surgical History: Procedure Laterality Date ADENOIDECTOMY TONSILLECTOMY Family History Problem Relation Age of Onset Diabetes Mother Hypertension Mother Hyperlipidemia Father Diabetes Sister Asthma Sister Anxiety Sister Social History Tobacco Use Smoking status: Never Smoker Smokeless tobacco: Never Used Substance Use Topics Alcohol use: Not Currently Drug use: Never Review of Systems Physical Exam Constitutional: General: She is not in acute distress. Appearance: She is not ill-appearing. HENT: Head: Normocephalic and atraumatic. Eyes: Extraocular Movements: Extraocular movements intact. Conjunctiva/sclera: Conjunctivae normal. Pupils: Pupils are equal, round, and reactive to light. Neck: Musculoskeletal: Normal range of motion and neck supple. No neck rigidity or muscular tenderness. Cardiovascular: Rate and Rhythm: Normal rate and regular rhythm. Pulses: Normal pulses. Heart sounds: Normal heart sounds. No murmur. No gallop. Pulmonary: Effort: Pulmonary effort is normal. Breath sounds: Normal breath sounds. No wheezing, rhonchi or rales. Chest: Chest wall: No tenderness. Abdominal: General: Abdomen is flat. Bowel sounds are normal. There is no distension. Palpations: Abdomen is soft. There is no mass. Tenderness: There is no abdominal tenderness. There is no right CVA tenderness, left CVA tenderness, guarding or rebound. Musculoskeletal: Normal range of motion. General: No tenderness. Right lower leg: No edema. Left lower leg: No edema. Lymphadenopathy: Cervical: No cervical adenopathy. Skin: General: Skin is warm. Findings: No erythema or rash. Neurological: General: No focal deficit present. Mental Status: She is alert and oriented to person, place, and time. Sensory: No sensory deficit. Motor: No weakness. Gait: Gait normal. Psychiatric: Mood and Affect: Mood normal. Behavior: Behavior normal. Thought Content: Thought content normal. Judgment: Judgment normal. OARRS/NARxCHECK Report Received and Assessed: No data found Date controlled substance agreement signed: No data found Date of last drug screen: No data found Functional Assessment: No data found Patient's Medications New Prescriptions SERTRALINE (ZOLOFT) 50 MG TABLET Take 1 (one) tablet (50 mg total) by mouth daily . Previous Medications No medications on file Modified Medications No medications on file Discontinued Medications No medications on file Health Maintenance Due Topic Date Due Tetanus: Every 10yrs Never done Pap Smear Never done Wellness Visit Never done HIV Screening Never done COVID-19 Vaccine (1 of 2) Never done Hepatitis C Screening Never done Sequential Influenza Vaccine (1) Never done Assessment & Plan Problem List Items Addressed This Visit Other Obesity, morbid, BMI 40.0-49.9 (HCC) Relevant Orders Basic Metabolic Panel Lipid Panel Hemoglobin A1c Encounter to establish care - Primary Relevant Orders Basic Metabolic Panel Lipid Panel Hemoglobin A1c Anxiety and depression GAD7 score of 21. 1-2 panic attacks, having stressful life events as well as trying to conceive. No concerns for depression, SI or HI. Would benefit from further ruling out thyroid disorders. -TSH with reflex T4 today -Discussed risks and benefits of starting on SSRI, I decided on starting patient on Zoloft that wasshown to be safe if she got . -Follow-up in 1 month -We will consider addition of hydroxyzine for any worsening anxiety -Melatonin 3 mg to help with sleeping. Relevant Medications sertraline (ZOLOFT) 50 MG tablet Other Relevant Orders TSH with Reflex Free T4 Elevated BP without diagnosis of hypertension Please take blood pressure in the same arm In a seated position for at least 5 minutes, and record readings keeping a log. If her blood pressure is at any time over 180/110, please give clinic a call. If high blood pressure with symptoms of headaches, blurry vision or tingling/numbness in extremities, please head to the ED for further management. Our goal blood pressure is below 130/80 for most adults Our goal blood pressure for ages over 65 is below 140/90 Return for Follow Up bp and anxiety. ZITA RANDOLPH MD [place] [id number] [facility] [address] [place] [id number] Dept: [phone] documented in this encounter* Zita Randolph MD - 10/24/2020 1:00 PM EDT Chief Complaint Patient presents with Diabetes FOLLOW-UP HPI: Tasia Almaguer is a 30-year-old female presenting today as a new patient to establish care, having concerns for anxiety. Relatively healthy with no pertinent past medical history other than morbid obesity. Anxiety: Has been feeling more anxious lately, always on her edge and irritated by small things. Has also had 1 panic attack when she was on a rafting trip with her . Currently having custody of her 2 nieces for 1 to 2 years which was 1 her anxiety started to become more significant. Denies any concerns for smoking, alcohol or drug use. Has family history of anxiety in her sister. No concern for depression symptoms, sleep disorders, SI or HI. Feeling safe at home. GAD7 score of 21, stared on zoloft last time at 50 mg as well as melatonin for insomnia. She has been doing great on Zoloft 50, initially had dizziness as a side effect of the medication but at this time she feels great on it and is comfortable with the dose feeling less irritable and her mood has been much better. Diabetes: A1c was high at 9.9 new diagnosis. After furhter discussion patient agreed to start on aggressive treatment with insulin Lantus 10 units as well as metformin (has been previously intolerant to it butat that time was given by mistake and patient was accidentally put on it for presumed PCO), startedat 500 mg tab. She has been checking her sugars every day in the morning ranging between 150s to 180s. Denies any episodes of hypoglycemia especially after discussing symptoms. Has not had contact with diabetes education team and is scheduled to see them at the end of October. Concerned about dietary changes and what she is supposed to and not supposed to eat. Elevated blood pressure: Reports that it is in the first time that she had her blood pressure checked and elevated in the doctor's office. Was never treated for hypertension in the past. Has positive hypertension history in mom. Denies any concerns for abdominal pain, headache, blurry vision, tingling/numbness in extremities. Blood pressure is great today. Past Medical History: Diagnosis Date Diabetes mellitus (HCC) 2020 Past Surgical History: Procedure Laterality Date ADENOIDECTOMY TONSILLECTOMY Family History Problem Relation Age of Onset Diabetes Mother Hypertension Mother Hyperlipidemia Father Diabetes Sister Asthma Sister Anxiety Sister Social History Tobacco Use Smoking status: Never Smoker Smokeless tobacco: Never Used Substance Use Topics Alcohol use: Not Currently Drug use: Never Review of Systems Physical Exam Constitutional: General: She is not in acute distress. Appearance: She is not ill-appearing. HENT: Head: Normocephalic and atraumatic. Eyes: Extraocular Movements: Extraocular movements intact. Conjunctiva/sclera: Conjunctivae normal. Pupils: Pupils are equal, round, and reactive to light. Neck: Musculoskeletal: Normal range of motion and neck supple. No neck rigidity or muscular tenderness. Cardiovascular: Rate and Rhythm: Normal rate and regular rhythm. Pulses: Normal pulses. Heart sounds: Normal heart sounds. No murmur. No gallop. Pulmonary: Effort: Pulmonary effort is normal. Breath sounds: Normal breath sounds. No wheezing, rhonchi or rales. Chest: Chest wall: No tenderness. Abdominal: General: Abdomen is flat. Bowel sounds are normal. There is no distension. Palpations: Abdomen is soft. There is no mass. Tenderness: There is no abdominal tenderness. There is no right CVA tenderness, left CVA tenderness, guarding or rebound. Musculoskeletal: Normal range of motion. General: No tenderness. Right lower leg: No edema. Left lower leg: No edema. Lymphadenopathy: Cervical: No cervical adenopathy. Skin: General: Skin is warm. Findings: No erythema or rash. Neurological: General: No focal deficit present. Mental Status: She is alert and oriented to person, place, and time. Sensory: No sensory deficit. Motor: No weakness. Gait: Gait normal. Psychiatric: Mood and Affect: Mood normal. Behavior: Behavior normal. Thought Content: Thought content normal. Judgment: Judgment normal. OARRS/NARxCHECK Report Received and Assessed: No data found Date controlled substance agreement signed: No data found Date of last drug screen: No data found Functional Assessment: No data found Patient's Medications New Prescriptions No medications on file Previous Medications BLOOD SUGAR DIAGNOSTIC STRIPS by Miscellaneous route daily Once daily every morning before breakfast. . BLOOD-GLUCOSE METER MISC Once daily every morning before breakfast. . LANCETS MISC 1 Lancet by Miscellaneous route daily . METFORMIN (GLUCOPHAGE) 500 MG TABLET Take 1 (one) tablet (500 mg total) by mouth daily with breakfast . PEN NEEDLE, DIABETIC 29 GAUGE X 1/2 NDLE 10 Units by Miscellaneous route daily . SERTRALINE (ZOLOFT) 50 MG TABLET Take 1 (one) tablet (50 mg total) by mouth daily . Modified Medications Modified Medication Previous Medication INSULIN DEGLUDEC 100 UNIT/ML (3 ML) INPN insulin degludec 100 unit/mL (3 mL) InPn Inject 12 (twelve) Units under the skin every evening . Inject 10 (ten) Units under the skin every evening . Discontinued Medications No medications on file Health Maintenance Due Topic Date Due Tetanus: Every 10yrs Never done Pap Smear Never done Wellness Visit Never done Foot Exam Never done Ophthalmology Exam Never done Urine Microalbumin Never done HIV Screening Never done COVID-19 Vaccine (1) Never done Hepatitis C Screening Never done Sequential Influenza Vaccine (1) Never done Assessment & Plan Problem List Items Addressed This Visit Endocrine Diabetes mellitus (HCC) A1c of 9.9, newly diagnosed diabetes. Has been started on Lantus 10 units as well as Metformin 500 mg that she tolerates well. Discussed GLP-1 agonist in the last visit but opted to go with insulin treatment as it is also safein case she wants to get in the future. With her current fasting blood sugars in the 150s to 180s, would benefit from further increase of her Lantus going slow by only 2 units and monitor response. Will stay on Metformin 500 mg once daily at this time until her follow-up in 1 month. -Increasing insulin to 12 units a day. -Continuing on Metformin 500 mg daily and tracking glucoses fasting every day. -We will try to get sooner appointment with dietitian, discussed some low-carb dietary modifications today -Follow-up in 2 to 4 weeks. -Advised to consider delaying decision regarding at this time until further control is achieved for her new onset diabetes Relevant Medications insulin degludec 100 unit/mL (3 mL) InPn Other Relevant Orders Ambulatory referral to Nutrition Services Other Anxiety and depression Improving. Will stay on sertraline 50 mg at this time with no further intervention needed. Elevated BP without diagnosis of hypertension - Primary Blood pressure is great today, will continue to monitor and follow-up in future visits. No follow-ups on file. ZITA RANDOLPH MD [facility] [id number] Dept: [phone] documented in this encounter* Luz Elena Sherman, RD - 10/25/2020 9:01 AM EDT Patient Name: Tasia Almaguer Patient : 1990 Primary Care Provider: Zita Randolph MD Referred By: Zita Randolph* Referral Diagnosis: Diabetes Type 2 Start Time: 9:00AM End Time: 9:45AM Nutrition Diagnosis: Altered nutrition-related lab values r/t endocrine dysfunction AEB A1C 9.9%, SMBG results Nutrition Goals: 30-45grams of carbohydrates per meal; 15 grams of carbohydrates per snack Follow Up: Pt is going to consider DSME/S classes. If she decides not to do classes, she will schedule a f/u appointment & do consults with RDN Assessment/Reason for Visit: Pt referred for DSME/S with dx of T2DM. Recently dx'd 2 weeks ago. Started SMBG 1 week ago with results ranging 150-180 mg/dL pre breakfast. Denies s/sx hypoglycemia. Strong family hx of T2DM noted. Support Person Present: None Other Social Support: Spouse, 2 kids Language or Literacy Factors: None Height: 67 Current Weight: 258# [self-reported] BMI: 40.4 kg/m2 - reflects obesity class III Weight History: Since dx, pt has been trying to lose weight. 9# weight loss x 2 weeks Wt Readings from Last 5 Encounters: 10/24/20 117.1 kg (258 lb 3.2 oz) 10/07/20 121.2 kg (267 lb 4.8 oz) Diet History/Recall: Pt is eating 3 meals + occasionally snacks daily. Since dx, she reports that she has focused more on portion control of foods along with meal prepping. For example, pt has been making egg muffin cups in cupcake tins with egg, turkey holder, onions, and peppers. She plans to start prepping overnight oats for breakfast. Food Purchase/Prep: Self/Self Diet recall: Breakfast, 8am: 2 homemade egg muffins Lunch, 12pm: Leftovers from the night before Dinner, 6pm: Salad with cheese, croutons, & onions with chicken & green beans Snacks: Strawberries and/or peanuts Daily Fluids: 30 oz water daily Alcohol use: Denies Tobacco use: Denies Meals Away From Home: 1x/week, [employer] PMHx: Past Medical History: Diagnosis Date Diabetes mellitus (HCC) 2020 Current/Pertinent Medications: blood sugar diagnostic strips blood-glucose meter Mis insulin degludec 100 unit/mL (3 mL) InPn [12 units @ HS] lancets Misc metFORMIN (GLUCOPHAGE) 500 MG tablet [1x/day in AM] pen needle, diabetic 29 gauge x 1/2 Ndle sertraline (ZOLOFT Lab Results Component Value Date HGBA1C 9.9 (H) 10/07/2020 Lab Results Component Value Date CHOL 219 (H) 10/07/2020 Lab Results Component Value Date TRIG 161 (H) 10/07/2020 Lab Results Component Value Date HDL 50 10/07/2020 Nutrition Focused Physical Findings: Food Allergies/Intolerances: NFKA Cultural or Denominational Dietary Needs: Denies Current Activity Level: Moderately Active; walking 3x/week [30-45 minutes] + exercise bike on the days she isn't walking [20 minutes] Food Insecurity Survey: 1. Within the past 12 months, we worried whether our food would run out before we got money to buy more. Often True [3], Sometimes True [2], Rarely True [1], Never True [0] 2. Within the past 12 months, the food we bought just didn't last and we didn't have the money to get more. Often True [3], Sometimes True [2], Rarely True [1], Never True [0] Estimated Nutritional Needs: Calorie Needs: 6767-7281 kcals/day [MSJ x 1.3AF -500/1000 kcals/day to promote 1-2# weight loss/week] Intervention/Education Provided: Encouraged patient to utilize the plate method as a visual for meal planning. Discussed the importance of consistent mealtimes with consistent amounts of carbohydrates balanced with lean protein, fiber, and healthy fats for improved blood glucose control. Encourageduse of hands as visuals for portioning food items. Reviewed label reading & explained the conver reji of CHO choices to grams. Reviewed s/sx hypoglycemia & the 15/15 rule for treating low blood sugars. Demonstrated use of the ADA web site for quick meal ideas & recipes. Pt receptive & verbalized understanding. Patient/Family Education: Learner: Patient Readiness: Action - ready to set action plan and implement goal Method: Explanation and handout Response: Demonstrates understanding & verbalizes understanding Education Materials Provided: Color coded meal & snack planning handout, Tie Society web site for quickmeal ideas, plate method/meal planning, Hypoglycemia handout, DSME/S 2020 class schedule [emailed to patient] Monitoring/Evaluation: SMBG, Weight, Food Record/Recall, Meal Planning, Physical Activity, Medication Management, Goal Assessment Luz Elena Sherman RDN, TIMMY Personal Office documented in this encounter* Luz Elena Sherman RD - 10/25/2020 9:01 AM EDT Patient Name: Tasia Almaguer Patient : 1990 Primary Care Provider: Zita Randolph MD Referred By: Zita Randolph* Referral Diagnosis: Diabetes Type 2 Start Time: 9:00AM End Time: 9:45AM Nutrition Diagnosis: Altered nutrition-related lab values r/t endocrine dysfunction AEB A1C 9.9%, SMBG results Nutrition Goals: 30-45grams of carbohydrates per meal; 15 grams of carbohydrates per snack Follow Up: Pt is going to consider DSME/S classes. If she decides not to do classes, she will schedule a f/u appointment & do consults with JESI Assessment/Reason for Visit: Pt referred for DSME/S with dx of T2DM. Recently dx'd 2 weeks ago. Started SMBG 1 week ago with results ranging 150-180 mg/dL pre breakfast. Denies s/sx hypoglycemia. Strong family hx of T2DM noted. Support Person Present: None Other Social Support: Spouse, 2 kids Language or Literacy Factors: None Height: 67 Current Weight: 258# [self-reported] BMI: 40.4 kg/m2 - reflects obesity class III Weight History: Since dx, pt has been trying to lose weight. 9# weight loss x 2 weeks Wt Readings from Last 5 Encounters: 10/24/20 117.1 kg (258 lb 3.2 oz) 10/07/20 121.2 kg (267 lb 4.8 oz) Diet History/Recall: Pt is eating 3 meals + occasionally snacks daily. Since dx, she reports that she has focused more on portion control of foods along with meal prepping. For example, pt has been making egg muffin cups in cupcake tins with egg, turkey holder, onions, and peppers. She plans to start prepping overnight oats for breakfast. Food Purchase/Prep: Self/Self Diet recall: Breakfast, 8am: 2 homemade egg muffins Lunch, 12pm: Leftovers from the night before Dinner, 6pm: Salad with cheese, croutons, & onions with chicken & green beans Snacks: Strawberries and/or peanuts Daily Fluids: 30 oz water daily Alcohol use: Denies Tobacco use: Denies Meals Away From Home: 1x/week, [employer]ipot[employer] PMHx: Past Medical History: Diagnosis Date Diabetes mellitus (HCC) 2020 Current/Pertinent Medications: blood sugar diagnostic strips blood-glucose meter Misc insulin degludec 100 unit/mL (3 mL) InPn [12 units @ HS] lancets Misc metFORMIN (GLUCOPHAGE) 500 MG tablet [1x/day in AM] pen needle, diabetic 29 gauge x 1/2 Ndle sertraline (ZOLOFT Lab Results Component Value Date HGBA1C 9.9 (H) 10/07/2020 Lab Results Component Value Date CHOL 219 (H) 10/07/2020 Lab Results Component Value Date TRIG 161 (H) 10/07/2020 Lab Results Component Value Date HDL 50 10/07/2020 Nutrition Focused Physical Findings: Food Allergies/Intolerances: [facility] Cultural or Denominational Dietary Needs: Denies Current Activity Level: Moderately Active; walking 3x/week [30-45 minutes] + exercise bike on the days she isn't walking [20 minutes] Food Insecurity Survey: 1. Within the past 12 months, we worried whether our food would run out before we got money to buy more. Often True [3], Sometimes True [2], Rarely True [1], Never True [0] 2. Within the past 12 months, the food we bought just didn't last and we didn't have the money to get more. Often True [3], Sometimes True [2], Rarely True [1], Never True [0] Estimated Nutritional Needs: Calorie Needs: 2226-3151 kcals/day [MSJ x 1.3AF -500/1000 kcals/day to promote 1-2# weight loss/week] Intervention/Education Provided: Encouraged patient to utilize the plate method as a visual for meal planning. Discussed the importance of consistent mealtimes with consistent amounts of carbohydrates balanced with lean protein, fiber, and healthy fats for improved blood glucose control. Encourageduse of hands as visuals for portioning food items. Reviewed label reading & explained the conver reji of CHO choices to grams. Reviewed s/sx hypoglycemia & the 15/15 rule for treating low blood sugars. Demonstrated use of the Tie Society web site for quick meal ideas & recipes. Pt receptive & verbalized understanding. Patient/Family Education: Learner: Patient Readiness: Action - ready to set action plan and implement goal Method: Explanation and handout Response: Demonstrates understanding & verbalizes understanding Education Materials Provided: Color coded meal & snack planning handout, Tie Society web site for quickmeal ideas, plate method/meal planning, Hypoglycemia handout, DSME/S 2020 class schedule [emailed to patient] Monitoring/Evaluation: SMBG, Weight, Food Record/Recall, Meal Planning, Physical Activity, Medication Management, Goal Assessment Luz Elena Sherman RDN, TIMMY Personal Office documented in this encounter* Brandy Bentley RN - 10/31/2020 3:10 PM EDT [facility] DIABETES SELF-MANAGEMENT EDUCATION AND SUPPORT PROGRAM Patient Name: Tasia Almaguer Patient : 1990 Primary Care Provider: Zita Randolph MD Referred By: Zita Randolph* Referral Diagnosis: Diabetes Type 2 Start Time: 8 am End Time: 9:08 am Behavior Goals: See Plan of Care Follow Up: Follow up appointment scheduled by patient Unique needs: Hearing impairment requiring sign language: no Visual impairment requiring print augmentation: no Language barrier requiring interpreters: no Low literacy: no Transportation issues: no Barriers to program access: no Barriers w/ technology: no Insured/uninsured/lack of insurance coverage/financial barriers: no Past Medical History: Past Medical History: Diagnosis Date Anxiety Diabetes mellitus (HCC) 2020 Social History: Social History Socioeconomic History Marital status: Spouse name: Not on file Number of children: Not on file Years of education: 16 Highest education level: Bachelor's degree (e.g., BA, AB, BS) Occupational History Not on file Social Needs Financial resource strain: Not hard at all Food insecurity Worry: Never true Inability: Never true Transportation needs Medical: No Non-medical: No Tobacco Use Smoking status: Never Smoker Smokeless tobacco: Never Used Substance and Sexual Activity Alcohol use: Not Currently Drug use: Never Sexual activity: Yes Partners: Male control/protection: None Lifestyle Physical activity Days per week: 7 days Minutes per session: 30 min Stress: Only a little Relationships Social connections Talks on phone: Not on file Gets together: Once a week Attends yazidi service: Not on file Active member of club or organization: Not on file Attends meetings of clubs or organizations: Not on file Relationship status: Not on file Other Topics Concern Not on file Social History Narrative living with in own house and has custody of nieces. 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 History From: History obtained from chart review and the patient. Current/Pertinent Medications: Current Outpatient Medications Ordered in [facility] Medication Sig Dispense Refill blood sugar diagnostic strips by Miscellaneous route daily Once daily every morning before breakfast. . 100 each 2 blood-glucose meter Misc Once daily every morning before breakfast. . 1 each 0 insulin degludec 100 unit/mL (3 mL) InPn Inject 12 (twelve) Units under the skin every evening . 6 mL 2 lancets Misc 1 Lancet by Miscellaneous route daily . 100 each 2 metFORMIN (GLUCOPHAGE) 500 MG tablet Take 1 (one) tablet (500 mg total) by mouth daily with breakfast . 90 tablet 3 pen needle, diabetic 29 gauge x 1/2 Ndle 10 Units by Miscellaneous route daily . 90 each 0 sertraline (ZOLOFT) 50 MG tablet Take 1 (one) tablet (50 mg total) by mouth daily . 30 tablet 0 No current [facility]-ordered facility-administered medications on file. SMBG Results: FBS: 150-180 Lab Results Component Value Date HGBA1C 9.9 (H) 10/07/2020 Lab Results Component Value Date CHOL 219 (H) 10/07/2020 Lab Results Component Value Date TRIG 161 (H) 10/07/2020 Lab Results Component Value Date HDL 50 10/07/2020 No results found for: LDL Education provided: Met with pt via telehealth by video-visit for DSME. Verbal consent obtained. Pt was just diagnosed with T2DM a few weeks ago. Also states she found out she is about 6 wks . Has been started on tresiba insulin every day. Is working on making dietary changes and is exercising by walking most days of the week. States she also has a stationary bike if the weather is bad. Is doing SMBG FBS. See results above. Sees 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 for the 1st time within the next week and a half. Discussed normal glucose metabolism, normal blood sugar levels, pt's A1C of 9.9%, normal, diagnostic criteria and goal, the role of the liver in blood sugar control, the importance of a regular feeding schedule, balancingCHOs at her meals, exercise, the risks of high blood sugar for both the baby and her, s/s hyperglycemia, s/s, treatment and prevention of hypoglycemia, how insulin works and the timing action of tresiba, foot care. Advised pt that she will be testing her blood sugar more frequently once she sees the 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. Discussed with Kvng Sherman RD who will be calling pt to discuss further nutritional goals with her. Discussed SMBG including times to test and tips given for more comfortable testing. Advised pt that her blood sugar goals will probably be more strict while she is and that her insulin schedule may change to get better control. Advised her to let her 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 know that she is having DSME/MNT and to let this educator know what changes her 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 wants for her. Gestational blood glucose record with goals sent to pt via [employer] along with handouts listed below to track herblood sugar results along with the GDM Toolkit and this educator's business card. F/U appointments made for pt for both this educator and the RD. Encouraged to call with questions. Foot Exam: Deferred due to telehealth appointment. Advised to have PCP check her feet at her next appointment. Patient/Family Education: Learner: patient Readiness: maintenance - has made change and is trying and/or practicing different alternative behaviors Barriers to Learning: none Method: explanation and handout Response: demonstrated understanding and verbalizes understanding Expected Adherence: good Education Record: Diabetes disease process and treatment process. Define diabetes and identify own type of diabetes; list 3 options for treating diabetes. Select one: needs instruction needs review demonstrates competency not covered not applicable voiced understanding Incorporating nutrition management into lifestyle. Describe effect of type, amount and timing of food on blood glucose; list 3 methods for planning meals. Select one: needs instruction needs review demonstrates competency not covered not applicable Incorporating physical activity into lifestyle. State effect of exercise on blood glucose levels. Select one: needs instruction needs review demonstrates competency not covered not applicable Using medications safely. State effect of diabetes medicines on diabetes; name diabetes medication taking, action and side effects. Select one: needs instruction needs review demonstrates competency not covered not applicable voiced understanding Monitoring blood glucose, interpreting and using results. Identify recommended blood glucose targets and personal targets. Select one: needs instruction needs review demonstrates competency not covered not applicable Prevention, detection and treatment of acute complications. List symptoms of hyper- and hypoglycemia; describe how to treat low blood sugar and actions for lowering high blood glucose levels. Select one: needs instruction needs review demonstrates competency not covered not applicable Prevention, detection and treatment of chronic complications. Define the natural course of diabetesand describe the relationship of blood glucose levels to moth exterminator complications of diabetes. Select one: needs instruction needs review demonstrates competency not covered not applicable Developing strategies to address psychosocial issues. Describe feelings about living with diabetes;identify support needed and support network. Select one: needs instruction needs review demonstrates competency not covered not applicable Developing strategies to promote health/change behavior. Define the ABCs of diabetes; identify appropriate screenings, schedule and personal plan for screenings. Select one: needs instruction needs review demonstrates competency not covered not applicable Education Materials Provided: Diabetes: An Introduction (ADA) All About Insulin Resistance (ADA Toolkit #2) Diagnosing Diabetes (ADA Advisor) Target Levels (ADA 2018 Standards) A1c/eAg (Diabetes Advisor) Hyperglycemia Hypoglycemia Health Coping (AADE) Footcare for People With Diabetes (Ricardo) Physical Activity (Diabetes Advisor) Start Walking Plan (ADA) Exercise: Measuring Intensity Diabetes Self-Management Support Plan ([facility]) This documentation has been sent to the referring healthcare provider. documented in this encounter Assessments Diagnosis Encounter to establish care- Primary Anxiety and depression Obesity, morbid, BMI 40.0-49.9 (HCC) Elevated BP without diagnosis of hypertension Diagnosis Elevated BP without diagnosis of hypertension- Primary Type 2 diabetes mellitus without complication, 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 (HCC) Anxiety and depression Diagnosis Type 2 diabetes mellitus without complication, 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 (HCC) Diagnosis Type 2 diabetes mellitus without complication, unspecified whether fci insulin use (HCC) Reason for Referral Status Reason Specialty Diagnoses / Procedures Referred By Contact Referred To Contact Pending Review Diagnoses Type 2 diabetes mellitus without complication, 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 (HCC) Zita Randolph MD [address] [place] [address] Status Reason Specialty Diagnoses / Procedures Referred By Contact Referred To Contact Authorized Specialty Services Required/Patien t's Best Interest Nutrition Diagnoses Type 2 diabetes mellitus without complication, unspecified whether fci insulin use (HCC) Zita Randolph MD [address] [place] [address] Nutrition Services [address] [place] [id number] Status Reason Specialty Diagnoses / Procedures Referre d By Contact Referred To Contact Closed Diagnoses Type 2 diabetes mellitus without complication, unspecified whether fci insulin use (HCC) Zita Randolph MD [address] [place] [address] Specialty Diagnoses / Procedures Referred By Contac t Referred To Contact Endocrinology Diagnoses Type 2 diabetes mellitus without complication, unspecified whether fci insulin use (HCC) Zita Randolph MD [address] [place] [address] [phone] Referral ID Status Reason Start Date Expiration Date V isits Requested Visits Authorized [id number] Authorized 09/10/2022 09/10/2023 1 1 Specialty Diagnoses / Procedures Referred By Contac t Referred To Contact Nutrition Diagnoses Type 2 diabetes mellitus without complication, unspecified whether fci insulin use (HCC) Zita Randolph MD [address] [place] [address] Nutrition Services [address] [place] [phone] Referral ID Status Reason Start Date Expiration Date V isits Requested Visits Authorized [id number] Authorized 09/10/2022 09/10/2023 1 1 Specialty Diagnoses / Procedures Referred By Contac t Referred To Contact Raw Material Handler Diagnoses Type 2 diabetes mellitus without complication, 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 (HCC) Zita Randolph MD [address] [place] [address] Referral ID Status Reason Start Date Expiration Date Visits Requested Visits Authorized [id number] Authorized Specialty Services Required/Pat ient's Best Interest 09/10/2022 09/10/2023 1 1 Specialty Diagnoses / Procedures Referred By Contac t Referred To Contact Diagnoses Type 2 diabetes (HCC) Procedures CONSULT TO DIABETES EDUCATION DSME/MNT MEDICAL NUTRITION ASSMT&IVNTJ INDIV EACH 15 AL MEDICAL NUTRITION ASSMT&IVNTJ INDIV EACH 15 AL MEDICAL NUTRITION ASSMT&IVNTJ INDIV EACH 15 AL MEDICAL NUTRITION ASSMT&IVNTJ INDIV EACH 15 AL Yossi Alcazar V, MD [address] [place] [address] Referral ID Status Reason Start Date Expiration Date Visits Requested Visits Authorized [id number] Authorized PCP Requested Referral 06/09/2023 06/08/2024 1 1 Chief Complaint and Reason for Visit Chief Complaint Admit Date Amb Documentation September 08, 2024 9 :47am New OB, LMP 07/25, GIANFRANCO 05/01/25 September 25, 2024 8:32am Gestational Diabetes September 25, 2024 1:53pm Reason for Visit Admit Date Anxiety September 25, 2024 8:32am Diabetes mellitus September 25, 2024 8:32am Family history of chromosomal abnormalit y September 25, 2024 8:32am Obesity affecting September 8:32am September 25, 2024 8:32am Supervision of high-risk [facility] 2024 8:32am Hypertension September 25, 2024 8:32am Type 2 diabetes mellitus aff ecting in first trimester, antepartum September 25, 2024 1:53pm Chief Complaint Admit Date Amb Documentation September 08, 2024 9 :47am New OB, LMP 07/25, GIANFRANCO 05/01/25 September 25, 2024 8:32am Gestational Diabetes September 25, 2024 1:53pm 12wk OB October 23, 2024 2:2 9pm 16 wk ob November 20, 2024 9:1 9am 20wk ob December 18, 2024 3:36p m Reason for Visit Admit Date Anxiety September 25, 2024 8:32am Diabetes mellitus September 25, 2024 8:32am Family history of chromosomal abnormalit y September 25, 2024 8:32am Obesity affecting September 8:32am September 25, 2024 8:32am Supervision of high-risk [facility] 2024 8:32am Hypertension September 25, 2024 8:32am Type 2 diabetes mellitus aff ecting in first trimester, antepartum September 25, 2024 1:53pm Anxiety October 23, 2024 2:2 9pm Diabetes mellitus October 23, 2024 2:2 9pm Family history of chromosomal abnormalit y October 23, 2024 2:29pm GBS (group B streptococcus) UTI complica ting October 23, 2024 2:29pm Obesity affecting October 23, 2024 2:29pm October 23, 2024 2:2 9pm Supervision of high-risk October 23, 2024 2:29pm Type 2 diabetes mellitus aff ecting in first trimester, antepartum October 23, 2024 2:29pm Hypertension October 23, 2024 2:2 9pm Anxiety November 20, 2024 9:1 9am Diabetes mellitus November 20, 2024 9:1 9am Family history of chromosomal abnormalit y November 20, 2024 9:19am GBS (group B streptococcus) UTI complica ting November 20, 2024 9:19am Obesity affecting November 20, 2024 9:19am November 20, 2024 9:1 9am Supervision of high-risk November 20, 2024 9:19am Type 2 diabetes mellitus aff ecting in first trimester, antepartum November 20, 2024 9:19am Hypertension November 20, 2024 9:1 9am Anxiety December 18, 2024 3:36p m Diabetes mellitus December 18, 2024 3:36p m Family history of chromosomal abnormalit y December 18, 2024 3:36pm GBS (group B streptococcus) UTI complica ting December 18, 2024 3:36pm Low lying placenta, antepartum December 18, 2024 3:36pm Obesity affecting December 18 3:36pm December 18, 2024 3:36p m Supervision of high-risk November 302024 3:36pm Type 2 diabetes mellitus aff ecting in first trimester, antepartum December 18, 2024 3:36pm Hypertension December 18, 2024 3:36p m Chief Complaint Admit Date Amb Documentation September 08, 2024 9 :47am New OB, LMP 07/25, GIANFRANCO 05/01/25 September 25, 2024 8:32am Gestational Diabetes September 25, 2024 1:53pm 12wk OB October 23, 2024 2:2 9pm 16 wk ob November 20, 2024 9:1 9am 20wk ob December 18, 2024 3:36p m 3 M FU January 01, 2025 9:02a m Chief Complaint Admit Date New OB, LMP 07/25, GIANFRANCO 05/01/25 September 25, 2024 8:32am Gestational Diabetes September 25, 2024 1:53pm 12wk OB October 23, 2024 2:2 9pm 16 wk ob November 20, 2024 9:1 9am 20wk ob December 18, 2024 3:36p m 3 M FU January 01, 2025 9:02a m 24wk ob January 17, 2025 3:37 pm Reason for Visit Admit Date Anxiety September 25, 2024 8:32am Diabetes mellitus September 25, 2024 8:32am Family history of chromosomal abnormalit y September 25, 2024 8:32am Obesity affecting September 8:32am September 25, 2024 8:32am Supervision of high-risk Febru bart 2024 8:32am Hypertension September 25, 2024 8:32am Type 2 diabetes mellitus aff ecting in first trimester, antepartum September 25, 2024 1:53pm Anxiety October 23, 2024 2:2 9pm Diabetes mellitus October 23, 2024 2:2 9pm Family history of chromosomal abnormalit y October 23, 2024 2:29pm GBS (group B streptococcus) UTI complica ting October 23, 2024 2:29pm Obesity affecting October 23, 2024 2:29pm October 23, 2024 2:2 9pm Supervision of high-risk October 23, 2024 2:29pm Hypertension October 23, 2024 2:2 9pm Type 2 diabetes mellitus aff ecting in first trimester, antepartum October 23, 2024 2:29pm Anxiety November 20, 2024 9:1 9am Diabetes mellitus November 20, 2024 9:1 9am Family history of chromosomal abnormalit y November 20, 2024 9:19am GBS (group B streptococcus) UTI complica ting November 20, 2024 9:19am Obesity affecting November 20, 2024 9:19am November 20, 2024 9:1 9am Supervision of high-risk November 20, 2024 9:19am Hypertension November 20, 2024 9:1 9am Type 2 diabetes mellitus aff ecting in first trimester, antepartum November 20, 2024 9:19am Anxiety December 18, 2024 3:36p m Diabetes mellitus December 18, 2024 3:36p m Family history of chromosomal abnormalit y December 18, 2024 3:36pm GBS (group B streptococcus) UTI complica ting December 18, 2024 3:36pm Low lying placenta, antepartum December 18, 2024 3:36pm Obesity affecting December 18 3:36pm December 18, 2024 3:36p m Supervision of high-risk November 302024 3:36pm Hypertension December 18, 2024 3:36p m Type 2 diabetes mellitus aff ecting in first trimester, antepartum December 18, 2024 3:36pm Diabetes in January 01, 2025 9:0 2am Hypertension January 01, 2025 9:02a m Anxiety January 17, 2025 3:37 pm Diabetes mellitus January 17, 2025 3:37 pm Family history of chromosomal abnormalit y January 17, 2025 3:37pm GBS (group B streptococcus) UTI complica ting January 17, 2025 3:37pm Low lying placenta, antepartum December 3:37pm Obesity affecting January 17 3:37pm January 17, 2025 3:37 pm Supervision of high-risk January 17, 2025 3:37pm Diabetes in January 17, 2025 3: 37pm Hypertension January 17, 2025 3:37 pm Chief Complaint Admit Date 12wk OB October 23, 2024 2:2 9pm 16 wk ob November 20, 2024 9:1 9am 20wk ob December 18, 2024 3:36p m 3 M FU January 01, 2025 9:02a m 24wk ob January 17, 2025 3:37 pm 28wk ob February 12, 2025 1:37 pm Reason for Visit Admit Date Anxiety October 23, 2024 2:2 9pm Diabetes mellitus October 23, 2024 2:2 9pm Family history of chromosomal abnormalit y October 23, 2024 2:29pm GBS (group B streptococcus) UTI complica ting October 23, 2024 2:29pm Obesity affecting October 23, 2024 2:29pm October 23, 2024 2:2 9pm Supervision of high-risk October 23, 2024 2:29pm Hypertension October 23, 2024 2:2 9pm Type 2 diabetes mellitus aff ecting in first trimester, antepartum October 23, 2024 2:29pm Anxiety November 20, 2024 9:1 9am Diabetes mellitus November 20, 2024 9:1 9am Family history of chromosomal abnormalit y November 20, 2024 9:19am GBS (group B streptococcus) UTI complica ting November 20, 2024 9:19am Obesity affecting November 20, 2024 9:19am November 20, 2024 9:1 9am Supervision of high-risk November 20, 2024 9:19am Hypertension November 20, 2024 9:1 9am Type 2 diabetes mellitus aff ecting in first trimester, antepartum November 20, 2024 9:19am Anxiety December 18, 2024 3:36p m Diabetes mellitus December 18, 2024 3:36p m Family history of chromosomal abnormalit y December 18, 2024 3:36pm GBS (group B streptococcus) UTI complica ting December 18, 2024 3:36pm Low lying placenta, antepartum December 18, 2024 3:36pm Obesity affecting December 18 3:36pm December 18, 2024 3:36p m Supervision of high-risk November 302024 3:36pm Hypertension December 18, 2024 3:36p m Type 2 diabetes mellitus aff ecting in first trimester, antepartum December 18, 2024 3:36pm Diabetes in January 01, 2025 9:0 2am Hypertension January 01, 2025 9:02a m Anxiety January 17, 2025 3:37 pm Diabetes mellitus January 17, 2025 3:37 pm Family history of chromosomal abnormalit y January 17, 2025 3:37pm GBS (group B streptococcus) UTI complica ting January 17, 2025 3:37pm Low lying placenta, antepartum December 3:37pm Obesity affecting January 17, 025 3:37pm January 17, 2025 3:37 pm Supervision of high-risk January 17, 2025 3:37pm Diabetes in January 17, 2025 3: 37pm Hypertension January 17, 2025 3:37 pm Anxiety February 12, 2025 1:37 pm Diabetes mellitus February 12, 2025 1:37 pm Family history of chromosomal abnormalit y February 12, 2025 1:37pm GBS (group B streptococcus) UTI complica ting February 12, 2025 1:37pm Low lying placenta, antepartum January 1:37pm Obesity affecting February 12, 025 1:37pm February 12, 2025 1:37 pm Supervision of high-risk February 12, 2025 1:37pm Diabetes in February 12, 2025 1: 37pm Hypertension February 12, 2025 1:37 pm Chief Complaint Admit Date 16 wk ob November 20, 2024 9:1 9am 20wk ob December 18, 2024 3:36p m 3 M FU January 01, 2025 9:02a m 24wk ob January 17, 2025 3:37 pm 28wk ob February 12, 2025 1:37 pm 30 wk ob February 26, 2025 1:20 pm Reason for Visit Admit Date Anxiety November 20, 2024 9:1 9am Diabetes mellitus November 20, 2024 9:1 9am Family history of chromosomal abnormalit y November 20, 2024 9:19am GBS (group B streptococcus) UTI complica ting November 20, 2024 9:19am Obesity affecting November 20, 2024 9:19am November 20, 2024 9:1 9am Supervision of high-risk November 20, 2024 9:19am Hypertension November 20, 2024 9:1 9am Type 2 diabetes mellitus aff ecting in first trimester, antepartum November 20, 2024 9:19am Anxiety December 18, 2024 3:36p m Diabetes mellitus December 18, 2024 3:36p m Family history of chromosomal abnormalit y December 18, 2024 3:36pm GBS (group B streptococcus) UTI complica ting December 18, 2024 3:36pm Obesity affecting December 18 3:36pm December 18, 2024 3:36p m Supervision of high-risk November 302024 3:36pm Hypertension December 18, 2024 3:36p m Low lying placenta, antepartum December 18, 2024 3:36pm Type 2 diabetes mellitus aff ecting in first trimester, antepartum December 18, 2024 3:36pm Diabetes in January 01, 2025 9:0 2am Hypertension January 01, 2025 9:02a m Anxiety January 17, 2025 3:37 pm Diabetes mellitus January 17, 2025 3:37 pm Family history of chromosomal abnormalit y January 17, 2025 3:37pm GBS (group B streptococcus) UTI complica ting January 17, 2025 3:37pm Obesity affecting January 17, 2 025 3:37pm January 17, 2025 3:37 pm Supervision of high-risk January 17, 2025 3:37pm Diabetes in January 17, 2025 3: 37pm Hypertension January 17, 2025 3:37 pm Low lying placenta, antepartum December 3:37pm Anxiety February 12, 2025 1:37 pm Diabetes mellitus February 12, 2025 1:37 pm Family history of chromosomal abnormalit y February 12, 2025 1:37pm GBS (group B streptococcus) UTI complica ting February 12, 2025 1:37pm Obesity affecting February 12, 2 025 1:37pm February 12, 2025 1:37 pm Supervision of high-risk February 12, 2025 1:37pm Diabetes in February 12, 2025 1: 37pm Hypertension February 12, 2025 1:37 pm Low lying placenta, antepartum January 1:37pm Anxiety February 26, 2025 1:20 pm Diabetes mellitus February 26, 2025 1:20 pm Family history of chromosomal abnormalit y February 26, 2025 1:20pm GBS (group B streptococcus) UTI complica ting February 26, 2025 1:20pm Obesity affecting February 26, 2 025 1:20pm February 26, 2025 1:20 pm Supervision of high-risk February 26, 2025 1:20pm Diabetes in February 26, 2025 1: 20pm Hypertension February 26, 2025 1:20 pm Chief Complaint Admit Date 16 wk ob November 20, 2024 9:1 9am 20wk ob December 18, 2024 3:36p m 3 M FU January 01, 2025 9:02a m 24wk ob January 17, 2025 3:37 pm 28wk ob February 12, 2025 1:37 pm 30 wk ob February 26, 2025 1:20 pm WELL BEING, DIABETES IN , HTN March 06, 2025 3:30pm 32 WK OB/NST March 09, 2025 1:4 1pm Reason for Visit Admit Date Anxiety November 20, 2024 9:1 9am Diabetes mellitus November 20, 2024 9:1 9am Family history of chromosomal abnormalit y November 20, 2024 9:19am GBS (group B streptococcus) UTI complica ting November 20, 2024 9:19am Obesity affecting November 20, 2024 9:19am November 20, 2024 9:1 9am Supervision of high-risk November 20, 2024 9:19am Hypertension November 20, 2024 9:1 9am Type 2 diabetes mellitus aff ecting in first trimester, antepartum November 20, 2024 9:19am Anxiety December 18, 2024 3:36p m Diabetes mellitus December 18, 2024 3:36p m Family history of chromosomal abnormalit y December 18, 2024 3:36pm GBS (group B streptococcus) UTI complica ting December 18, 2024 3:36pm Obesity affecting December 18 3:36pm December 18, 2024 3:36p m Supervision of high-risk November 302024 3:36pm Hypertension December 18, 2024 3:36p m Low lying placenta, antepartum December 18, 2024 3:36pm Type 2 diabetes mellitus aff ecting in first trimester, antepartum December 18, 2024 3:36pm Diabetes in January 01, 2025 9:0 2am Hypertension January 01, 2025 9:02a m Anxiety January 17, 2025 3:37 pm Diabetes mellitus January 17, 2025 3:37 pm Family history of chromosomal abnormalit y January 17, 2025 3:37pm GBS (group B streptococcus) UTI complica ting January 17, 2025 3:37pm Obesity affecting January 17, 025 3:37pm January 17, 2025 3:37 pm Supervision of high-risk January 17, 2025 3:37pm Diabetes in January 17, 2025 3: 37pm Hypertension January 17, 2025 3:37 pm Low lying placenta, antepartum December 3:37pm Anxiety February 12, 2025 1:37 pm Diabetes mellitus February 12, 2025 1:37 pm Family history of chromosomal abnormalit y February 12, 2025 1:37pm GBS (group B streptococcus) UTI complica ting February 12, 2025 1:37pm Obesity affecting February 12, 2 025 1:37pm February 12, 2025 1:37 pm Supervision of high-risk February 12, 2025 1:37pm Diabetes in February 12, 2025 1: 37pm Hypertension February 12, 2025 1:37 pm Low lying placenta, antepartum January 1:37pm Anxiety February 26, 2025 1:20 pm Diabetes mellitus February 26, 2025 1:20 pm Family history of chromosomal abnormalit y February 26, 2025 1:20pm GBS (group B streptococcus) UTI complica ting February 26, 2025 1:20pm Obesity affecting February 26, 2 025 1:20pm February 26, 2025 1:20 pm Supervision of high-risk February 26, 2025 1:20pm Diabetes in February 26, 2025 1: 20pm Hypertension February 26, 2025 1:20 pm Anxiety March 09, 2025 1:4 1pm Diabetes mellitus March 09, 2025 1:4 1pm Family history of chromosomal abnormalit y March 09, 2025 1:41pm GBS (group B streptococcus) UTI complica ting March 09, 2025 1:41pm Obesity affecting March 09, 2025 1:41pm March 09, 2025 1:4 1pm Supervision of high-risk Augus t 2024 1:41pm Diabetes in March 09, 2025 1 :41pm Hypertension March 09, 2025 1:4 1pm Chief Complaint Admit Date 16 wk ob November 20, 2024 9:1 9am 20wk ob December 18, 2024 3:36p m 3 M FU January 01, 2025 9:02a m 24wk ob January 17, 2025 3:37 pm 28wk ob February 12, 2025 1:37 pm 30 wk ob February 26, 2025 1:20 pm WELL BEING, DIABETES IN , HTN March 06, 2025 3:30pm 32 WK OB/NST March 09, 2025 1:4 1pm WELL BEING, DIABETES IN , HTN March 13, 2025 3:35pm Chief Complaint Admit Date 16 wk ob November 20, 2024 9:1 9am 20wk ob December 18, 2024 3:36p m 3 M FU January 01, 2025 9:02a m 24wk ob January 17, 2025 3:37 pm 28wk ob February 12, 2025 1:37 pm 30 wk ob February 26, 2025 1:20 pm WELL BEING, DIABETES IN , HTN March 06, 2025 3:30pm 32 WK OB/NST March 09, 2025 1:4 1pm WELL BEING, DIABETES IN , HTN March 13, 2025 3:35pm 33 WK NST ONLY March 16, 2025 1: 26pm Reason for Visit Admit Date Anxiety November 20, 2024 9:1 9am Diabetes mellitus November 20, 2024 9:1 9am Family history of chromosomal abnormalit y November 20, 2024 9:19am GBS (group B streptococcus) UTI complica ting November 20, 2024 9:19am Obesity affecting November 20, 2024 9:19am November 20, 2024 9:1 9am Supervision of high-risk November 20, 2024 9:19am Hypertension November 20, 2024 9:1 9am Type 2 diabetes mellitus aff ecting in first trimester, antepartum November 20, 2024 9:19am Anxiety December 18, 2024 3:36p m Diabetes mellitus December 18, 2024 3:36p m Family history of chromosomal abnormalit y December 18, 2024 3:36pm GBS (group B streptococcus) UTI complica ting December 18, 2024 3:36pm Obesity affecting December 18 3:36pm December 18, 2024 3:36p m Supervision of high-risk November 302024 3:36pm Hypertension December 18, 2024 3:36p m Low lying placenta, antepartum December 18, 2024 3:36pm Type 2 diabetes mellitus aff ecting in first trimester, antepartum December 18, 2024 3:36pm Diabetes in January 01, 2025 9:0 2am Hypertension January 01, 2025 9:02a m Anxiety January 17, 2025 3:37 pm Diabetes mellitus January 17, 2025 3:37 pm Family history of chromosomal abnormalit y January 17, 2025 3:37pm GBS (group B streptococcus) UTI complica ting January 17, 2025 3:37pm Obesity affecting January 17, 2 025 3:37pm January 17, 2025 3:37 pm Supervision of high-risk January 17, 2025 3:37pm Diabetes in January 17, 2025 3: 37pm Hypertension January 17, 2025 3:37 pm Low lying placenta, antepartum December 3:37pm Anxiety February 12, 2025 1:37 pm Diabetes mellitus February 12, 2025 1:37 pm Family history of chromosomal abnormalit y February 12, 2025 1:37pm GBS (group B streptococcus) UTI complica ting February 12, 2025 1:37pm Obesity affecting February 12, 2 025 1:37pm February 12, 2025 1:37 pm Supervision of high-risk February 12, 2025 1:37pm Diabetes in February 12, 2025 1: 37pm Hypertension February 12, 2025 1:37 pm Low lying placenta, antepartum January 1:37pm Anxiety February 26, 2025 1:20 pm Diabetes mellitus February 26, 2025 1:20 pm Family history of chromosomal abnormalit y February 26, 2025 1:20pm GBS (group B streptococcus) UTI complica ting February 26, 2025 1:20pm Obesity affecting February 26, 2 025 1:20pm February 26, 2025 1:20 pm Supervision of high-risk February 26, 2025 1:20pm Diabetes in February 26, 2025 1: 20pm Hypertension February 26, 2025 1:20 pm Anxiety March 09, 2025 1:4 1pm Diabetes mellitus March 09, 2025 1:4 1pm Family history of chromosomal abnormalit y March 09, 2025 1:41pm GBS (group B streptococcus) UTI complica ting March 09, 2025 1:41pm Obesity affecting March 09, 2025 1:41pm March 09, 2025 1:4 1pm Supervision of high-risk Augus 2024 1:41pm Diabetes in March 09, 2025 1 :41pm Hypertension March 09, 2025 1:4 1pm Anxiety March 16, 2025 1: 26pm Diabetes mellitus March 16, 2025 1: 26pm Family history of chromosomal abnormalit y March 16, 2025 1:26pm GBS (group B streptococcus) UTI complica ting March 16, 2025 1:26pm Obesity affecting March 16, 2025 1:26pm March 16, 2025 1: 26pm Supervision of high-risk Augus t 2024 1:26pm Diabetes in March 16, 2025 1:26pm Hypertension March 16, 2025 1: 26pm Chief Complaint Admit Date 16 wk ob November 20, 2024 9:1 9am 20wk ob December 18, 2024 3:36p m 3 M FU January 01, 2025 9:02a m 24wk ob January 17, 2025 3:37 pm 28wk ob February 12, 2025 1:37 pm 30 wk ob February 26, 2025 1:20 pm WELL BEING, DIABETES IN , HTN March 06, 2025 3:30pm 32 WK OB/NST March 09, 2025 1:4 1pm WELL BEING, DIABETES IN , HTN March 13, 2025 3:35pm 33 WK NST ONLY March 16, 2025 1: 26pm BIOPHYSICAL PROFILE March 16, 2025 2: 15pm Chief Complaint Admit Date 16 wk ob November 20, 2024 9:1 9am 20wk ob December 18, 2024 3:36p m 3 M FU January 01, 2025 9:02a m 24wk ob January 17, 2025 3:37 pm 28wk ob February 12, 2025 1:37 pm 30 wk ob February 26, 2025 1:20 pm WELL BEING, DIABETES IN , HTN March 06, 2025 3:30pm 32 WK OB/NST March 09, 2025 1:4 1pm WELL BEING, DIABETES IN , HTN March 13, 2025 3:35pm 33 WK NST ONLY March 16, 2025 1: 26pm BIOPHYSICAL PROFILE March 16, 2025 2: 15pm BIOPHYSICAL PROFILE March 17, 2025 10 :58am Reason for Visit Admit Date Anxiety November 20, 2024 9:1 9am Diabetes mellitus November 20, 2024 9:1 9am Family history of chromosomal abnormalit y November 20, 2024 9:19am GBS (group B streptococcus) UTI complica ting November 20, 2024 9:19am Obesity affecting November 20, 2024 9:19am November 20, 2024 9:1 9am Supervision of high-risk November 20, 2024 9:19am Hypertension November 20, 2024 9:1 9am Type 2 diabetes mellitus aff ecting in first trimester, antepartum November 20, 2024 9:19am Anxiety December 18, 2024 3:36p m Diabetes mellitus December 18, 2024 3:36p m Family history of chromosomal abnormalit y December 18, 2024 3:36pm GBS (group B streptococcus) UTI complica ting December 18, 2024 3:36pm Obesity affecting December 18 3:36pm December 18, 2024 3:36p m Supervision of high-risk November 302024 3:36pm Hypertension December 18, 2024 3:36p m Low lying placenta, antepartum December 18, 2024 3:36pm Type 2 diabetes mellitus aff ecting in first trimester, antepartum December 18, 2024 3:36pm Diabetes in January 01, 2025 9:0 2am Hypertension January 01, 2025 9:02a m Anxiety January 17, 2025 3:37 pm Diabetes mellitus January 17, 2025 3:37 pm Family history of chromosomal abnormalit y January 17, 2025 3:37pm GBS (group B streptococcus) UTI complica ting January 17, 2025 3:37pm Obesity affecting January 17, 025 3:37pm January 17, 2025 3:37 pm Supervision of high-risk January 17, 2025 3:37pm Diabetes in January 17, 2025 3: 37pm Hypertension January 17, 2025 3:37 pm Low lying placenta, antepartum December 3:37pm Anxiety February 12, 2025 1:37 pm Diabetes mellitus February 12, 2025 1:37 pm Family history of chromosomal abnormalit y February 12, 2025 1:37pm GBS (group B streptococcus) UTI complica ting February 12, 2025 1:37pm Obesity affecting February 12, 2 025 1:37pm February 12, 2025 1:37 pm Supervision of high-risk February 12, 2025 1:37pm Diabetes in February 12, 2025 1: 37pm Hypertension February 12, 2025 1:37 pm Low lying placenta, antepartum January 1:37pm Anxiety February 26, 2025 1:20 pm Diabetes mellitus February 26, 2025 1:20 pm Family history of chromosomal abnormalit y February 26, 2025 1:20pm GBS (group B streptococcus) UTI complica ting February 26, 2025 1:20pm Obesity affecting February 26, 2 025 1:20pm February 26, 2025 1:20 pm Supervision of high-risk February 26, 2025 1:20pm Diabetes in February 26, 2025 1: 20pm Hypertension February 26, 2025 1:20 pm Anxiety March 09, 2025 1:4 1pm Diabetes mellitus March 09, 2025 1:4 1pm Family history of chromosomal abnormalit y March 09, 2025 1:41pm GBS (group B streptococcus) UTI complica ting March 09, 2025 1:41pm Obesity affecting March 09, 2025 1:41pm March 09, 2025 1:4 1pm Supervision of high-risk Marus 2024 1:41pm Diabetes in March 09, 2025 1 :41pm Hypertension March 09, 2025 1:4 1pm Anxiety March 16, 2025 1: 26pm Diabetes mellitus March 16, 2025 1: 26pm Family history of chromosomal abnormalit y March 16, 2025 1:26pm GBS (group B streptococcus) UTI complica ting March 16, 2025 1:26pm Obesity affecting March 16, 2025 1:26pm March 16, 2025 1: 26pm Supervision of high-risk Augus t 2024 1:26pm Diabetes in March 16, 2025 1:26pm Hypertension March 16, 2025 1: 26pm Variable deceleration March 16, 2025 2:15pm Chief Complaint Admit Date 20wk ob December 18, 2024 3:36p m 3 M FU January 01, 2025 9:02a m 24wk ob January 17, 2025 3:37 pm 28wk ob February 12, 2025 1:37 pm 30 wk ob February 26, 2025 1:20 pm WELL BEING, DIABETES IN , HTN March 06, 2025 3:30pm 32 WK OB/NST March 09, 2025 1:4 1pm WELL BEING, DIABETES IN , HTN March 13, 2025 3:35pm 33 WK NST ONLY March 16, 2025 1: 26pm BIOPHYSICAL PROFILE March 16, 2025 2: 15pm BIOPHYSICAL PROFILE March 17, 2025 10 :58am WELL BEING, DIABETES IN , HTN March 20, 2025 3:31pm 34 WK OB/NST March 23, 2025 10 :38am Reason for Visit Admit Date Anxiety December 18, 2024 3:36p m Diabetes mellitus December 18, 2024 3:36p m Family history of chromosomal abnormalit y December 18, 2024 3:36pm GBS (group B streptococcus) UTI complica ting December 18, 2024 3:36pm Obesity affecting December 18 3:36pm December 18, 2024 3:36p m Supervision of high-risk November 302024 3:36pm Hypertension December 18, 2024 3:36p m Low lying placenta, antepartum December 18, 2024 3:36pm Type 2 diabetes mellitus aff ecting in first trimester, antepartum December 18, 2024 3:36pm Diabetes in January 01, 2025 9:0 2am Hypertension January 01, 2025 9:02a m Anxiety January 17, 2025 3:37 pm Diabetes mellitus January 17, 2025 3:37 pm Family history of chromosomal abnormalit y January 17, 2025 3:37pm GBS (group B streptococcus) UTI complica ting January 17, 2025 3:37pm Obesity affecting January 17, 2 025 3:37pm January 17, 2025 3:37 pm Supervision of high-risk January 17, 2025 3:37pm Diabetes in January 17, 2025 3: 37pm Hypertension January 17, 2025 3:37 pm Low lying placenta, antepartum December 3:37pm Anxiety February 12, 2025 1:37 pm Diabetes mellitus February 12, 2025 1:37 pm Family history of chromosomal abnormalit y February 12, 2025 1:37pm GBS (group B streptococcus) UTI complica ting February 12, 2025 1:37pm Obesity affecting February 12, 2 025 1:37pm February 12, 2025 1:37 pm Supervision of high-risk February 12, 2025 1:37pm Diabetes in February 12, 2025 1: 37pm Hypertension February 12, 2025 1:37 pm Low lying placenta, antepartum January 1:37pm Anxiety February 26, 2025 1:20 pm Diabetes mellitus February 26, 2025 1:20 pm Family history of chromosomal abnormalit y February 26, 2025 1:20pm GBS (group B streptococcus) UTI complica ting February 26, 2025 1:20pm Obesity affecting February 26, 2 025 1:20pm February 26, 2025 1:20 pm Supervision of high-risk February 26, 2025 1:20pm Diabetes in February 26, 2025 1: 20pm Hypertension February 26, 2025 1:20 pm Anxiety March 09, 2025 1:4 1pm Diabetes mellitus March 09, 2025 1:4 1pm Family history of chromosomal abnormalit y March 09, 2025 1:41pm GBS (group B streptococcus) UTI complica ting March 09, 2025 1:41pm Obesity affecting March 09, 2025 1:41pm March 09, 2025 1:4 1pm Supervision of high-risk Marus 2024 1:41pm Diabetes in March 09, 2025 1 :41pm Hypertension March 09, 2025 1:4 1pm Anxiety March 16, 2025 1: 26pm Diabetes mellitus March 16, 2025 1: 26pm Family history of chromosomal abnormalit y March 16, 2025 1:26pm GBS (group B streptococcus) UTI complica ting March 16, 2025 1:26pm Obesity affecting March 16, 2025 1:26pm March 16, 2025 1: 26pm Supervision of high-risk Augus t 2024 1:26pm Diabetes in March 16, 2025 1:26pm Hypertension March 16, 2025 1: 26pm Variable deceleration March 16, 2025 2:15pm Anxiety March 23, 2025 10 :38am Diabetes mellitus March 23, 2025 10 :38am Family history of chromosomal abnormalit y March 23, 2025 10:38am GBS (group B streptococcus) UTI complica ting March 23, 2025 10:38am Obesity affecting March 23, 2025 10:38am March 23, 2025 10 :38am Supervision of high-risk Augus t 2024 10:38am Diabetes in March 23, 2025 10:38am Hypertension March 23, 2025 10 :38am Additional Source Comments INFORMATION SOURCE (unrecogn ized section and content) DATE [facility] DATE CREATED AUTHOR AUTHOR'S ORGANIZ ATION 12/28/2021 [facility] DATE CREATED AUTHOR AUTHOR'S ORGANIZ ATION 2023 [facility] DATE CREATED AUTHOR AUTHOR'S ORGANIZ ATION 02/17/2025 [facility] DATE CREATED AUTHOR AUTHOR'S ORGANIZ ATION 03/04/2025 [facility] DATE CREATED AUTHOR AUTHOR'S ORGANIZ ATION 03/27/2025 [facility] Reason for Visit (unrecogniz ed section and content) Reason Comments Advice Only Reason Comments Establish Care Anxiety FEEL LIKE BEEN GOING ON FOR YEARS BUT HAS INCREASED FEELING LATELY Reason Comments Diabetes FOLLOW-UP Status Reason Specialty Diagnoses / Procedures Referred By Contact Referred To Contact Authorized Specialty Services Required/Patien t's Best Interest Nutrition Diagnoses Type 2 diabetes mellitus without complication, unspecified whether fci insulin use (HCC) Zita Randolph MD [address] [address] Nutrition Services [facility] [place] [address] Reason Onset Date Comments Medication Refill 10/25/2020 Reason Onset Date Comments Medication Refill 10/31/2020 Reason Comments Diabetes Mellitus Status Reason Specialty Diagnoses / Procedures Referred By Contact Referred To Contact Authorized Specialty Services Required/Patien t's Best Interest Nutrition Diagnoses Type 2 diabetes mellitus without complication, 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 ([facility]) Zita Randolph MD [address] [address] Nutrition Services [address] [place] [phone] Reason Onset Date Comments Medication Refill 11/25/2020 Reason Onset Date Comments Medication Refill 12/16/2020 Reason Onset Date Comments Medication Refill 01/08/2021 Reason Onset Date Comments Medication Refill 01/16/2021 Reason Onset Date Comments Medication Refill 07/17/2021 Reason Comments Medication Refill Reason Onset Date Comments Medication Refill 01/20/2022 Reason Onset Date Comments Medication Refill 02/20/2022 Reason Onset Date Comments Medication Refill 08/06/2022 Reason Onset Date Comments Medication Refill 08/04/2022 Reason Comments Gap Closure (Health Maintenance) Foot Ex am Never doneOphthalmology Exam Never doneUrine Microalbumin Never [id number] due on 03/25/2022 Reason Onset Date Comments Care Management Referral 12/31/2022 Reason Comments Non-insulin Dependent Diabetes Mellitus Reason Onset Date Comments Medication Refill 09/15/2023 Reason Comments Follow-up Reason Onset Date Comments Medication Refill 04/15/2024 Reason Onset Date Comments Medication Refill 2024 Reason Onset Date Comments Medication Refill 08/10/2024 Reason Onset Date Comments Medication Refill 11/17/2024 Reason Comments Otalgia Right ear, has had a cold that has moved to her ear. Ear pain started yesterday. Cold symptoms x's 10 days. Assessment & Plan Note - Zita Randolph MD - 10/07/2020 9:55 AM ESTAssessment & Plan Note - Zita Randolph MD - 10/07/2020 9:49 AM EST Miscellaneous Notes (unrecog nized section and content) Associated Problem(s): Anxiety and depression GAD7 score of 21. 1-2 panic attacks, having stressful life events as well as trying to conceive. No concerns for depression, SI or HI. Would benefit from further ruling out thyroid disorders. -TSH with reflex T4 today -Discussed risks and benefits of starting on SSRI, I decided on starting patient on Zoloft that was shown to be safe if she got . -Follow-up in 1 month -We will consider addition of hydroxyzine for any worsening anxiety -Melatonin 3 mg to help with sleeping. Associated Problem(s): Elevated BP without diagnosis of hypertension Please take blood pressure in the same arm In a seated position for at least 5 minutes, and record readings keeping a log. If her blood pressure is at any time over 180/110, please give clinic a call. If high blood pressure with symptoms of headaches, blurry vision or tingling/numbness in extremities, please head to the ED for further management. Our goal blood pressure is below 130/80 for most adults Our goal blood pressure for ages over 65 is below 140/90 documented in this encounter Associated Problem(s): Elevated BP without diagnosis of hypertension Blood pressure is great today, will continue to monitor and follow-up in future visits. Associated Problem(s): Anxiety and depression Improving. Will stay on sertraline 50 mg at this time with no further intervention needed. Associated Problem(s): Diabetes mellitus (HCC) A1c of 9.9, newly diagnosed diabetes. Has been started on Lantus 10 units as well as Metformin 500 mg that she tolerates well. Discussed GLP-1 agonist in the last visit but opted to go with insulin treatment as it is also safe in case she wants to get in the future. With her current fasting blood sugars in the 150s to 180s, would benefit from further increase of her Lantus going slow by only 2 units and monitor response. Will stay on Metformin 500 mg once daily at this time until her follow-up in 1 month. -Increasing insulin to 12 units a day. -Continuing on Metformin 500 mg daily and tracking glucoses fasting every day. -We will try to get sooner appointment with dietitian, discussed some low-carb dietary modifications today -Follow-up in 2 to 4 weeks. -Advised to consider delaying decision regarding at this time until further control is achieved for her new onset diabetes documented in this encounter PHARMACY CALLING. REQUESTING QUANTITY TO DISPENSE BE UPDATED TO 6 ML FOR A #30 DAY SUPPLY, WHICH WILL ALLOW PRESCRIPTION TO RUN THROUGH WITHOUT PRIOR AUTHORIZATION. PRESCRIPTION QUANTITY UPDATED. documented in this encounter Care Teams (unrecognized sec tion and content) Team Status: Active Member Role Status Dates No Primary Care Physician Primary Care Provider Active Team Status: Inactive Member Role Status Dates No Primary Care Physician Primary Care Provider Active Start: September 25, 2024 End: September 25, 2024 No Primary Care Physician Referring Provider Active Start: September 25, 2024 End: September 25, 2024 Dr. Magalys Stoner DO Attending Provider Activ e Start: September 25, 2024 End: September 25, 2024 Team Status: Inactive Member Role Status Dates No Primary Care Physician Primary Care Provider Active Start: September 25, 2024 End: September 25, 2024 Dr. Magalys Stoner DO Attending Provider Activ e Start: September 25, 2024 End: September 25, 2024 Dr. Magalys Stoner DO Referring Provider Activ e Start: September 25, 2024 End: September 25, 2024 Team Status: Inactive Member Role Status Dates No Primary Care Physician Primary Care Provider Active Start: September 25, 2024 End: September 25, 2024 No Primary Care Physician Referring Provider Active Start: September 25, 2024 End: September 25, 2024 Dr. Theodore Dunne MD Attending Provider Active Sta rt: September 25, 2024 End: September 25, 2024 Team Status: Inactive Member Role Status Dates No Primary Care Physician Primary Care Provider Active Start: October 23, 2024 End: October 23, 2024 No Primary Care Physician Referring Provider Active Start: October 23, 2024 End: October 23, 2024 Dr. Magalys Stoner DO Attending Provider Activ e Start: October 23, 2024 End: October 23, 2024 Team Status: Inactive Member Role Status Dates No Primary Care Physician Primary Care Provider Active Start: November 20, 2024 End: November 20, 2024 No Primary Care Physician Referring Provider Active Start: November 20, 2024 End: November 20, 2024 Tere Xiong CNM Attending Provider Active S tart: November 20, 2024 End: November 20, 2024 Team Status: Inactive Member Role Status Dates No Primary Care Physician Primary Care Provider Active Start: November 20, 2024 End: November 20, 2024 Tere Xiong CNM Attending Provider Active S tart: November 20, 2024 End: November 20, 2024 Tere Xiong CNM Referring Provider Active S tart: November 20, 2024 End: November 20, 2024 Team Status: Inactive Member Role Status Dates No Primary Care Physician Primary Care Provider Active Start: December 18, 2024 End: December 18, 2024 No Primary Care Physician Referring Provider Active Start: December 18, 2024 End: December 18, 2024 Dr. Magalys Stoner DO Attending Provider Activ e Start: December 18, 2024 End: December 18, 2024 Team Status: Inactive Member Role Status Dates No Primary Care Physician Primary Care Provider Active Start: January 01, 2025 End: January 01, 2025 No Primary Care Physician Referring Provider Active Start: January 01, 2025 End: January 01, 2025 Dr. Theodore Dunne MD Attending Provider Active Sta rt: January 01, 2025 End: January 01, 2025 Team Status: Inactive Member Role Status Dates No Primary Care Physician Primary Care Provider Active Start: January 17, 2025 End: January 17, 2025 No Primary Care Physician Referring Provider Active Start: January 17, 2025 End: January 17, 2025 Dr. Mae Reeves MD Attending Provider Active Start: January 17, 2025 End: January 17, 2025 Marine Geologist Relationship Specialty Start Date End Date Zita Randolph MD [address] [address] PCP - General Family Medicine 10/01/20 Zita Randolph MD [address] [address] PCP - BARBARA Attributed Provider - Angie Commercial 03/02/21 07/31/21 Marine Geologist Relationship Specialty Start Date End Date Zita Randolph MD [address] [address] PCP - General Family Medicine 10/01/20 Zita Randolph MD [address] [address] PCP - BARBARA Attributed Provider - Angie Commercial 03/02/21 08/01/50 Marine Geologist Relationship Specialty Start Date End Date Zita Randolph MD [address] [address] PCP - General Family Medicine 10/01/20 Zita Randolph MD [address] [address] PCP - BARBARA Attributed Provider - Angie Commercial 03/02/21 08/01/50 Marine Geologist Relationship Specialty Start Date End Date Zita Randolph MD [address] [address] PCP - General Family Medicine 10/01/20 Zita Randolph MD [address] [address] PCP - BARBARA Attributed Provider - Angie Commercial 03/02/21 08/01/50 Marine Geologist Relationship Specialty Start Date End Date Zita Randolph MD [address] [address] PCP - General Family Medicine 10/01/20 Zita Randolph MD [address] [address] PCP - BARBARA Attributed Provider - Angie Commercial 03/02/21 08/01/50 Marine Geologist Relationship Specialty Start Date End Date Zita Randolph MD [address] [address] PCP - General Family Medicine 10/01/20 Zita Randolph MD [address] [place] [id number] PCP - BARBARA Attributed Provider - Angie Commercial 03/02/21 08/01/50 Marine Geologist Relationship Specialty Start Date End Date Zita Randolph MD [address] [place] [id number] PCP - General Family Medicine 10/01/20 Zita Randolph MD [address] [address] PCP - BARBARA Attributed Provider - Angie Commercial 03/02/21 08/01/50 Marine Geologist Relationship Specialty Start Date End Date Zita Randolph MD [address] [address] PCP - General Family Medicine 10/01/20 Zita Randolph MD [facility] [address] [address] PCP - BARBARA Attributed Provider - Angie Commercial 03/02/21 08/01/[address] Dietitian Case Management 12/31/22 Marine Geologist Relationship Specialty Start Date End Date Zita Randolph MD [facility] [place] [id number] PCP - General Family Medicine 10/01/20 Zita Randolph MD [facility] [place] [id number] PCP - BARBARA Attributed Provider - Angie Commercial 03/02/21 08/01/50 Marine Geologist Relationship Specialty Start Date End Date Zita Randolph MD [facility] [place] [id number] PCP - General Family Medicine 10/01/20 Zita Randolph MD [facility] [place] [id number] PCP - BARBARA Attributed Provider - Angie Commercial 03/02/21 08/01/50 Marine Geologist Relationship Specialty Start Date End Date Zita Randolph MD [address] [address] PCP - General Family Medicine 10/01/20 Zita Randolph MD [facility] [address] [address] PCP - BARBARA Attributed Provider - Angie Commercial 03/02/21 08/01/50 Marine Geologist Relationship Specialty Start Date End Date Zita Randolph MD [facility] [address] [address] PCP - General Family Medicine 10/01/20 Zita Randolph MD [facility] [address] [address] PCP - [facility] Provider - Angie Commercial 03/02/21 08/01/50 Team Status: Active Member Role Status Dates No Primary Care Physician Primary Care Provider Active Start: September 08, 2024 Malissa Meneses RN Attending Provider Active St art: September 08, 2024 Marine Geologist Relationship Specialty Start Date End Date Zita Randolph MD [address] [place] [id number] PCP - General Family Medicine 10/01/20 Marine Geologist Relationship Specialty Start Date End Date Zita Randolph MD [address] [place] [id number] PCP - General Family Medicine 10/01/20 Team Status: Active Member Role/Relationship Status Dates No Primary Care Physician Primary Care Provider Active Team Status: Inactive Member Role/Relationship Status Dates No Primary Care Physician Primary Care Provider Active Start: October 23, 2024 End: October 23, 2024 No Primary Care Physician Referring Provider Active Start: October 23, 2024 End: October 23, 2024 Dr. Magalys Stoner DO Attending Provider Activ e Start: October 23, 2024 End: October 23, 2024 Team Status: Inactive Member Role/Relationship Status Dates No Primary Care Physician Primary Care Provider Active Start: November 20, 2024 End: November 20, 2024 No Primary Care Physician Referring Provider Active Start: November 20, 2024 End: November 20, 2024 Tere Xiong CNM Attending Provider Active S tart: November 20, 2024 End: November 20, 2024 Team Status: Inactive Member Role/Relationship Status Dates No Primary Care Physician Primary Care Provider Active Start: November 20, 2024 End: November 20, 2024 Tere Xiong CNM Attending Provider Active S tart: November 20, 2024 End: November 20, 2024 Tere Xiong CNM Referring Provider Active S tart: November 20, 2024 End: November 20, 2024 Team Status: Inactive Member Role/Relationship Status Dates No Primary Care Physician Primary Care Provider Active Start: December 18, 2024 End: December 18, 2024 No Primary Care Physician Referring Provider Active Start: December 18, 2024 End: December 18, 2024 Dr. Magalys Stoner DO Attending Provider Activ e Start: December 18, 2024 End: December 18, 2024 Team Status: Inactive Member Role/Relationship Status Dates No Primary Care Physician Primary Care Provider Active Start: January 01, 2025 End: January 01, 2025 No Primary Care Physician Referring Provider Active Start: January 01, 2025 End: January 01, 2025 Dr. Theodore Dunne MD Attending Provider Active Sta rt: January 01, 2025 End: January 01, 2025 Team Status: Inactive Member Role/Relationship Status Dates No Primary Care Physician Primary Care Provider Active Start: January 17, 2025 End: January 17, 2025 No Primary Care Physician Referring Provider Active Start: January 17, 2025 End: January 17, 2025 Dr. Mae Reeves MD Attending Provider Active Start: January 17, 2025 End: January 17, 2025 Team Status: Inactive Member Role/Relationship Status Dates No Primary Care Physician Primary Care Provider Active Start: February 12, 2025 End: February 12, 2025 No Primary Care Physician Referring Provider Active Start: February 12, 2025 End: February 12, 2025 Rebecca Jackson DRY BOX TENDER, DRY BOX TENDER-C Attending Provider Active Start: February 12, 2025 End: February 12, 2025 Team Status: Active Member Role/Relationship Status Dates No Primary Care Physician Primary Care Provider Active Start: February 12, 2025 Rebecca Jackson DRY BOX TENDER, DRY BOX TENDER-C Attending Provider Active Start: February 12, 2025 Rebecca Jackson DRY BOX TENDER, DRY BOX TENDER-C Referring Provider Active Start: February 12, 2025 Team Status: Inactive Member Role/Relationship Status Dates No Primary Care Physician Primary Care Provider Active Start: February 12, 2025 End: February 12, 2025 Rebecca Jackson DRY BOX TENDER, DRY BOX TENDER-C Attending Provider Active Start: February 12, 2025 End: February 12, 2025 Rebecca Jackson DRY BOX TENDER, DRY BOX TENDER-C Referring Provider Active Start: February 12, 2025 End: February 12, 2025 Team Status: Inactive Member Role/Relationship Status Dates No Primary Care Physician Primary Care Provider Active Start: November 20, 2024 End: November 20, 2024 No Primary Care Physician Referring Provider Active Start: November 20, 2024 End: November 20, 2024 Tere Xiong CNM Attending Provider Active S tart: November 20, 2024 End: November 20, 2024 Team Status: Inactive Member Role/Relationship Status Dates No Primary Care Physician Primary Care Provider Active Start: November 20, 2024 End: November 20, 2024 Tere Xiong CNM Attending Provider Active S tart: November 20, 2024 End: November 20, 2024 Tere Xiong CNM Referring Provider Active S tart: November 20, 2024 End: November 20, 2024 Team Status: Inactive Member Role/Relationship Status Dates No Primary Care Physician Primary Care Provider Active Start: December 18, 2024 End: December 18, 2024 No Primary Care Physician Referring Provider Active Start: December 18, 2024 End: December 18, 2024 Dr. Magalys Stoner DO Attending Provider Activ e Start: December 18, 2024 End: December 18, 2024 Team Status: Inactive Member Role/Relationship Status Dates No Primary Care Physician Primary Care Provider Active Start: January 01, 2025 End: January 01, 2025 No Primary Care Physician Referring Provider Active Start: January 01, 2025 End: January 01, 2025 Dr. Theodore Dunne MD Attending Provider Active Sta rt: January 01, 2025 End: January 01, 2025 Team Status: Inactive Member Role/Relationship Status Dates No Primary Care Physician Primary Care Provider Active Start: January 17, 2025 End: January 17, 2025 No Primary Care Physician Referring Provider Active Start: January 17, 2025 End: January 17, 2025 Dr. Mae Reeves MD Attending Provider Active Start: January 17, 2025 End: January 17, 2025 Team Status: Inactive Member Role/Relationship Status Dates No Primary Care Physician Primary Care Provider Active Start: February 12, 2025 End: February 12, 2025 No Primary Care Physician Referring Provider Active Start: February 12, 2025 End: February 12, 2025 Rebecca Jackson DRY BOX TENDER, DRY BOX TENDER-C Attending Provider Active Start: February 12, 2025 End: February 12, 2025 Team Status: Inactive Member Role/Relationship Status Dates No Primary Care Physician Primary Care Provider Active Start: February 12, 2025 End: February 12, 2025 Rebecca Jackson DRY BOX TENDER, DRY BOX TENDER-C Attending Provider Active Start: February 12, 2025 End: February 12, 2025 Rebecca Jackson DRY BOX TENDER, DRY BOX TENDER-C Referring Provider Active Start: February 12, 2025 End: February 12, 2025 Team Status: Inactive Member Role/Relationship Status Dates No Primary Care Physician Primary Care Provider Active Start: February 26, 2025 End: February 26, 2025 No Primary Care Physician Referring Provider Active Start: February 26, 2025 End: February 26, 2025 Tere Xiong CNM Attending Provider Active S tart: February 26, 2025 End: February 26, 2025 Marine Geologist Relationship Specialty Start Date End Date Zita Randolph MD [address] [place], [place] [id number] PCP - General Family Medicine 10/01/20 Marine Geologist Relationship Specialty Start Date End Date Zita Randolph MD [address] [place] [id number] PCP - General Family Medicine 10/01/20 Team Status: Active Member Role/Relationship Status Dates No Primary Care Physician Primary Care Provider Active Start: March 06, 2025 Dr. Mae Reeves MD Attending Provider Active Start: March 06, 2025 Dr. Mae Reeves MD Referring Provider Active Start: March 06, 2025 Team Status: Inactive Member Role/Relationship Status Dates No Primary Care Physician Primary Care Provider Active Start: March 09, 2025 End: March 09, 2025 No Primary Care Physician Referring Provider Active Start: March 09, 2025 End: March 09, 2025 Tere Xiong CNM Attending Provider Active S tart: March 09, 2025 End: March 09, 2025 Team Status: Inactive Member Role/Relationship Status Dates No Primary Care Physician Primary Care Provider Active Start: March 06, 2025 End: March 06, 2025 Dr. Mae Reeves MD Attending Provider Active Start: March 06, 2025 End: March 06, 2025 Dr. Mae Reeves MD Referring Provider Active Start: March 06, 2025 End: March 06, 2025 Team Status: Active Member Role/Relationship Status Dates No Primary Care Physician Primary Care Provider Active Start: March 13, 2025 Dr. Mae Reeves MD Attending Provider Active Start: March 13, 2025 Dr. Mae Reeves MD Referring Provider Active Start: March 13, 2025 Team Status: Inactive Member Role/Relationship Status Dates No Primary Care Physician Primary Care Provider Active Start: March 16, 2025 End: March 16, 2025 No Primary Care Physician Referring Provider Active Start: March 16, 2025 End: March 16, 2025 Tere Xiong CNM Attending Provider Active S tart: March 16, 2025 End: March 16, 2025 Team Status: Inactive Member Role/Relationship Status Dates No Primary Care Physician Primary Care Provider Active Start: March 16, 2025 End: March 16, 2025 Veronica Winter CNM Attending Provider Active Start: March 16, 2025 End: March 16, 2025 Veronica Winter CNM Referring Provider Active Start: March 16, 2025 End: March 16, 2025 Team Status: Inactive Member Role/Relationship Status Dates No Primary Care Physician Primary Care Provider Active Start: March 13, 2025 End: March 13, 2025 Dr. Mae Reeves MD Attending Provider Active Start: March 13, 2025 End: March 13, 2025 Dr. Mae Reeves MD Referring Provider Active Start: March 13, 2025 End: March 13, 2025 Team Status: Active Member Role/Relationship Status Dates No Primary Care Physician Primary Care Provider Active Start: March 17, 2025 Veronica Winter CNM Attending Provider Active Start: March 17, 2025 Veronica Winter , CNM Referring Provider Active Start: March 17, 2025 Veronica Winter CNM Other Provider Active Star t: March 17, 2025 Team Status: Active Member Role/Relationship Status Dates ZITA RANDOLPH MD Primary Care Provider Active Team Status: Inactive Member Role/Relationship Status Dates No Primary Care Physician Primary Care Provider Active Start: December 18, 2024 End: December 18, 2024 No Primary Care Physician Referring Provider Active Start: December 18, 2024 End: December 18, 2024 Dr. Magalys Stoner DO Attending Provider Activ e Start: December 18, 2024 End: December 18, 2024 Team Status: Inactive Member Role/Relationship Status Dates No Primary Care Physician Primary Care Provider Active Start: January 01, 2025 End: January 01, 2025 No Primary Care Physician Referring Provider Active Start: January 01, 2025 End: January 01, 2025 Dr. Theodore Dunne MD Attending Provider Active Sta rt: January 01, 2025 End: January 01, 2025 Team Status: Inactive Member Role/Relationship Status Dates No Primary Care Physician Primary Care Provider Active Start: January 17, 2025 End: January 17, 2025 No Primary Care Physician Referring Provider Active Start: January 17, 2025 End: January 17, 2025 Dr. Mae Reeves MD Attending Provider Active Start: January 17, 2025 End: January 17, 2025 Team Status: Inactive Member Role/Relationship Status Dates No Primary Care Physician Primary Care Provider Active Start: February 12, 2025 End: February 12, 2025 No Primary Care Physician Referring Provider Active Start: February 12, 2025 End: February 12, 2025 Rebecca Jackson DRY BOX TENDER, DRY BOX TENDER-C Attending Provider Active Start: February 12, 2025 End: February 12, 2025 Team Status: Inactive Member Role/Relationship Status Dates No Primary Care Physician Primary Care Provider Active Start: February 12, 2025 End: February 12, 2025 Rebecca Jackson DRY BOX TENDER, DRY BOX TENDER-C Attending Provider Active Start: February 12, 2025 End: February 12, 2025 Rebecca Jackson DRY BOX TENDER, DRY BOX TENDER-C Referring Provider Active Start: February 12, 2025 End: February 12, 2025 Team Status: Inactive Member Role/Relationship Status Dates No Primary Care Physician Primary Care Provider Active Start: February 26, 2025 End: February 26, 2025 No Primary Care Physician Referring Provider Active Start: February 26, 2025 End: February 26, 2025 Tere Xiong CNM Attending Provider Active S tart: February 26, 2025 End: February 26, 2025 Team Status: Inactive Member Role/Relationship Status Dates No Primary Care Physician Primary Care Provider Active Start: March 06, 2025 End: March 06, 2025 Dr. Mae Reeves MD Attending Provider Active Start: March 06, 2025 End: March 06, 2025 Dr. Mae Reeves MD Referring Provider Active Start: March 06, 2025 End: March 06, 2025 Team Status: Inactive Member Role/Relationship Status Dates No Primary Care Physician Primary Care Provider Active Start: March 09, 2025 End: March 09, 2025 No Primary Care Physician Referring Provider Active Start: March 09, 2025 End: March 09, 2025 Tere Xiong CNM Attending Provider Active S tart: March 09, 2025 End: March 09, 2025 Team Status: Inactive Member Role/Relationship Status Dates No Primary Care Physician Primary Care Provider Active Start: March 13, 2025 End: March 13, 2025 Dr. Mae Reeves MD Attending Provider Active Start: March 13, 2025 End: March 13, 2025 Dr. Mae Reeves MD Referring Provider Active Start: March 13, 2025 End: March 13, 2025 Team Status: Inactive Member Role/Relationship Status Dates No Primary Care Physician Primary Care Provider Active Start: March 16, 2025 End: March 16, 2025 No Primary Care Physician Referring Provider Active Start: March 16, 2025 End: March 16, 2025 Tere Xiong CNM Attending Provider Active S tart: March 16, 2025 End: March 16, 2025 Team Status: Inactive Member Role/Relationship Status Dates No Primary Care Physician Primary Care Provider Active Start: March 16, 2025 End: March 16, 2025 Veronica Winter CNM Attending Provider Active Start: March 16, 2025 End: March 16, 2025 Veronica Winter CNM Referring Provider Active Start: March 16, 2025 End: March 16, 2025 Team Status: Active Member Role/Relationship Status Dates No Primary Care Physician Primary Care Provider Active Start: March 17, 2025 Veronica Winter CNM Attending Provider Active Start: March 17, 2025 Veronica Winter CNM Referring Provider Active Start: March 17, 2025 Veronica Winter CNM Other Provider Active Star t: March 17, 2025 Team Status: Active Member Role/Relationship Status Dates Dr. Mae Reeves MD Attending Provider Active Start: March 20, 2025 Dr. Mae Reeves MD Referring Provider Active Start: March 20, 2025 ZITA RANDOLPH MD Primary Care Provider Active Start: March 20, 2025 Team Status: Inactive Member Role/Relationship Status Dates No Primary Care Physician Referring Provider Active Start: March 23, 2025 End: March 23, 2025 Dr. Mae Reeves MD Attending Provider Active Start: March 23, 2025 End: March 23, 2025 ZITA RANDOLPH MD Primary Care Provider Active Start: March 23, 2025 End: March 23, 2025 Team Status: Inactive Member Role/Relationship Status Dates Dr. Mae Reeves MD Attending Provider Active Start: March 20, 2025 End: March 20, 2025 Dr. Mae Reeves MD Referring Provider Active Start: March 20, 2025 End: March 20, 2025 ZITA RANDOLPH MD Primary Care Provider Active Start: March 20, 2025 End: March 20, 2025 Source Comments (unrecognize d section and content) In the event this informatio n is protected by the Federal Confidentiality of Alcohol and Drug Abuse Patient Records regulations: The Federal rules restrict any use of the information to criminally investigate or prosecute any alcohol or drug abuse patient.[facility] the event this information is protected by the Federal Confidentiality of Alcohol and Drug Abuse Patient Records regulations: The Federal rules restrict any use of the information to criminally investigate or prosecute any alcohol or drug abuse patient.[facility] the event this information is protected by the Federal Confidentiality of Alcohol and Drug Abuse Patient Records regulations: The Federal rules restrict any use of the information to criminally investigate or prosecute any alcohol or drug abuse patient.[facility] Goals (unrecognized section and content) Goals may be documented in a n alternate sectionGoals may be documented in an alternate sectionGoals may be documented in an alternate sectionGoals may be documented in an alternate sectionGoals may be documented in an alternate sectionGoals may be documented in an alternate sectionGoals may be documented in an alternate sectionGoals may be documented in an alternate sectionGoals may be documented in an alternate sectionGoals may be documented in an alternate sectionGoals may be documented in an alternate sectionGoals may be documented in an alternate sectionGoals may be documented in an alternate sectionGoals may be documented in an alternate section FOR RECORDS PERTAINING TO PATIENTS WHO ARE OR HAVE BEEN ENROLLED IN A CHEMICAL DEPENDENCY/SUBSTANCEABUSE PROGRAM, SOME INFORMATION MAY BE OMITTED. This clinical summary was aggregated from multiple sources. Caution should be exercised in using it in the provision of clinical care. This summary normalizes information from multiple sources, and as a consequence, information in this document may materially change the coding, format and clinical context of patient data. In addition, data may be omitted in some cases. CLINICAL DECISIONS SHOULD BE BASED ON THE PRIMARY CLINICAL RECORDS. [facility] [employer] [facility]. provides no warranty or guarantee of the accuracy or completeness of information in this document.
== END | disposition home or self-care (01) ==
LOC: US 15:30
PROVIDERS: PCP Family Medicine; Referring Provider Obstetrics & Gynecology; Visit Provider Obstetrics & Gynecology
DX: O24.112 Pre-existing type 2 diabetes mellitus, in pregnancy, second trimester (principal); O16.2 Unspecified maternal hypertension, second trimester; Z3A.00 Weeks of gestation of pregnancy not specified
CPT/HCPCS: 76819

== ENCOUNTER → 2025-03-30 | Outpatient (CLI) | payer BC, SELFPAY ==
--- NOTE | 2025-03-30 15:36 | US_ITS ---
PROCEDURE: OB BIOPHYSICAL PROF W/O NST 03/30/2025 REASON FOR EXAM: WELL BEING TECHNIQUE: Procedure Code: [id number] Modality: US Procedure: OB BIOPHYSICAL PROF W/O NST COMPARISON: March 27, 2025. FINDINGS LMP: July 25, 2025. Number: 1 Position: Vertex Placental Position: Posterior and not low-lying Placental Abnormalities: No evidence of previa. ESTIMATED GESTATIONAL AGE: Baseline: 35 weeks and 3 days ESTIMATED DATE OF DELIVERY: Baseline: May 01, 2025 BIOPHYSICAL ASSESSMENT: Amniotic Fluid Volume: 5.6 cm Amniotic Fluid Index: 17 cm (8-24 cm normal range) Cardiac Motion: 138 beats per minute (average) Trunk and Limb Motion: Present. Biophysical profile: Breathing movements: 2 Gross body movements: 2 tone: 2 Amniotic fluid volume: 2 Total score: 8/8 US/OB Biophysical Prof W/O NST IMPRESSION: Normal biophysical profile. Reading Location: [place] [id number]
== END | disposition home or self-care (01) ==
LOC: US 15:34
PROVIDERS: PCP Family Medicine; Referring Provider Obstetrics & Gynecology; Visit Provider Obstetrics & Gynecology
DX: O24.12 Pre-existing type 2 diabetes mellitus, in childbirth (principal); O99.212 Obesity complicating pregnancy, second trimester; O16.2 Unspecified maternal hypertension, second trimester
CPT/HCPCS: 76819

== ENCOUNTER 2025-04-03 16:40 | Outpatient (CLI) | payer BC, SELFPAY ==
[2025-04-03 16:42] VITALS: BMI 45.8
[2025-04-03 16:52] VITALS: BP 128/83; PULSE 108
--- OUTSIDE RECORDS SUMMARY | 2025-04-03 23:38 | XMS RPT_ITS | CCD ---
Author Organization [facility] [employer] Care Team Providers Care Atmospheric Drier Tender Name Role Phone AGUILAR, FRANCHESCA Unavailable Unavailable AGUILAR, FRANCHESCA Unavailable Unavailable AGUILAR, FRANCHESCA Unavailable Unavailable AGUILAR, FRANCHESCA Unavailable Unavailable AGUILAR, FRANCHESCA Unavailable Unavailable AGUILAR, FRANCHESCA Unavailable Unavailable Selina Lindo Primary Care Provider [phone] Zita Randolph Primary Care Provid er Zita [...] Dr. Theodore Dunne MD Attending Provider Renetta ARTIFICIAL PLASTIC EYE MAKER-C, Rebecca Attending Provider [phone] Charlotte ARTIFICIAL PLASTIC EYE MAKER-C, Rebecca Referring Provider [phone] NO PRIMARY [...] vailable Dr. 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 . 1 each 10/08/2020 Active Start: 10-08-2020 blood-glucose meter Misc Indications: Type 2 diabetes mellitus without complication, unspecified whether group home insulin use (HCC) Once daily every morning [...] 2 diabetes mellitus without complication, unspecified whether group home insulin use (HCC) 1 kit by Miscellaneous [...] 2 diabetes mellitus without complication, unspecified whether group home insulin use (HCC) Take 2 (two) tablets [...] Take 1,000 mg by robinson th. 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 2 mL 0 05/21/2022 09/10/2022 Discontinued Start: 12-24-2021 End: 03-22-2022 dulaglutide 0.75 mg/0.5 mL P en Indications: Type 2 diabetes mellitus without complication, unspecified whether group home insulin use (HCC) Inject 0.5 mL (0.75 [...] 2 diabetes mellitus without complication, unspecified whether group home insulin use (HCC) Inject 25 (twenty five) Units under the skin at bedtime . 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 2 mL 1 01/10/2024 03/02/2025 Discontinued Start: 01-10-2024 tirzepatide (M OUNJARO) 2.5 mg/0.5 mL Pen Indications: Type 2 diabetes mellitus without complication, unspecified whether group home insulin use (HCC) Inject 0.5 mL under [...] (Has custody of 14yr old twin nieces, [place] & [place]), : Slade PRR GIANFRANCO: Boy! Ernie Spouse: Slade (has custody of 11yr old twin nieces [place] and [place]) PRR , GIANFRANCO , girl [employer]: Ernie (Has custody of 14yr old twin nieces, [place] & [place]), : Slade Other complications of [...] n 04-03-2025 OB Biophysical Prof W/O NST [facility] Imaging Services [address] [place], [place] [address] OB Biophysical Prof W/O NST MR#: [id number] Acct: [id number] Name: TASIA ALMAGUER Rep #: [id number] : 1990 F 34 From: Raghav Hdez MD PCP: ZITA RANDOLPH MD Status: REG CLI Study: OB Biophysical Prof W/O NST Date of Exam: 09/26 Exam# [id number] Ordering Dr: Mae Reeves PROCEDURE: OB BIOPHYSICAL [...] NST IMPRESSION: Biophysical profile: 6/8. Reading Location: [facility]PLACED [facility] [id number] CC: ZITA RANDOLPH MD; Dr. Mae Reeves MD Cruise Coordinator: Signed Normal [facility] OB Biophysical Prof W/O NSTo n 03-30-2025 OB Biophysical Prof W/O NST [facility] Imaging Services [address] [place], [place] [address] OB Biophysical Prof W/O NST MR#: [id number] Acct: [id number] Name: TASIA ALMAGUER Rep #: [id number] : 1990 F 34 From: Srinivas mayes MD PCP: ZITA RANDOLPH MD Status: REG CLI Study: OB Biophysical Prof W/O NST Date of Exam: 03/03 04/26 Exam# [id number] Ordering Dr: Mae Reeves PROCEDURE: OB BIOPHYSICAL [...] NST IMPRESSION: Normal biophysical profile. Reading Location: [place] [address] CC: ZITA RANDOLPH MD; Dr. Mae Reeves MD Cruise Coordinator: Signed Normal [facility] OB Biophysical Prof W/O NSTo n 03-27-2025 OB Biophysical Prof W/O NST [facility] Imaging Services [address] [place] [address] OB Biophysical Prof W/O NST MR#: [id number] Acct: [id number] Name: TASIA ALMAGUER Rep #: [id number] : 1990 F 34 From: Srinivas mayes MD PCP: ZITA RANDOLPH MD Status: REG CLI Study: OB Biophysical Prof W/O NST Date of Exam: 03/03 01/24 Exam# [id number] Ordering Dr: Mae Reeves PROCEDURE: OB BIOPHYSICAL [...] biophysical profile score of 8/8 Reading Location: [facility] CC: ZITA RANDOLPH MD; Dr. Mae Reeves MD Cruise Coordinator: Signed Normal [facility] Laboratory - Chemistry and C hemistry - challengeOrdered By: Mae Reeves on 03-23-2025 Glucose Ql (U) Negative [facility] Laboratory - UrinalysisOrder ed By: Mae Reeves on 03-23-2025 Protein Ql (U) Trace [facility] Military Logistics Specialist Office Visit Reporton 03-23-2025 Military Logistics Specialist Office Visit Report [facility] [address], [address] [place] [address] OFFICE VISIT Date of Service: 03/23/25 MR#: [id number] Acct: [id number] Name: TASIA ALMAGUER Rep #: [id number] : 1990 Provider: Dr. Mae bailey MD Age/Sex: 34/F Location[place] [facility] Status: Signed Intake Vital Signs 01/17/25 15:47 03/16/25 14:27 03/23/25 10:41 Height 5 ft 7 in 5 ft 7 in 5 ft 7 in Weight: 290 lb 6 oz BMI 45.4 BP 128/83 H Intake Visit Reasons: 35 WK OB/NST School Psychometrist Required: No Is patient in pain?: No [...] 3-4 times per week duration: 15-30 minutes/day geoffrey/jew: None seatbelt use: always do you feel [...] - full term 8lbs 3oz Male epidural [facility] S Joy June Delivery Date: 06/17/21 [...] -???-???-???-???-?? ?-???-???-???-???-? (more content not included)... Normal [facility] OB Biophysical Prof W/O NSTo n 03-20-2025 OB Biophysical Prof W/O NST [facility] Imaging Services [address] [place] [id number] OB Biophysical Prof W/O NST MR#: [id number] Acct: [id number] Name: TASIA ALMAGUER Rep #: [id number] : 1990 F 34 From: Srinivas mayes MD PCP: ZITA RANDOLPH MD Status: REG CLI Study: OB Biophysical Prof W/O NST Date of Exam: 03/02 04/26 Exam# [id number] Ordering Dr: Mae Reeves PROCEDURE: OB BIOPHYSICAL [...] with a score of 8/8 Reading Location: [id number] CC: ZITA RANDOLPH MD; Dr. Mae Reeves MD Cruise Coordinator: Signed Normal [facility] OB Triage Physician Noteon 0 03-17-2025 OB Triage Physician Note [facility] Medical Records Department [address] [place] [address] OB Triage Physician Note 03/17/25 1058 MR#: [id number] Acct: [id number] Name: TASIA ALMAGUER Rep #: [id number] : 1990 34 From: Veronica Winter CNM PCP: Care Physician,No Primary Status:DEP CLI Y Location: [facility] HPI - General HPI Narrative TASIA [...] 3-4 times per week duration: 15-30 minutes/day geoffrey/jew: None seatbelt use: always do you feel safe at home: Yes additional social history: : Slade Andriy Madden History 2 Elective abortions Hx Para 1 Spontaneous abortions 0 Hx # Term Pregnancies Ectopic pregnancies Hx # Pregnancies Multiple births # of living children 1 Past Pregnancies Del. Date Name GA/Weeks Outcome Route Bth Weight Infant Gen [facility]17[facility]21 Ernie 39 live - full term 8lbs 3oz Male epidural [facility] S Joy June Delivery Date: 06/17/21 [...] -???-???-???-???-?? ?-???-?? (more content not included)... Normal [facility] OB Triage Progress Noteon OB Triage Progress Note [facility] Medical Records Department [address] [place] [address] OB Triage Progress Note 03/17/25 1058 MR#: [id number] Acct: [id number] Name: TASIA ALMAGUER Rep #: [id number] : 1990 34 From: Veronica Winter CNM PCP: Care Physician,No Primary Status:JOSÉ MIGUEL Castillo DOS: Location: [facility] 03/17/25 1213 Date Veronica Winter CNM Cosigner Signature (if applicable): Date __ CC: CLAUDIO Winter; No Primary Care Physician Signed Normal [facility] Laboratory - Chemistry and C hemistry - challengeOrdered By: Tere Xiong on 03-16-2025 Glucose Ql (U) Negative [facility] Laboratory - UrinalysisOrder ed By: Tere Xiong on 03-16-2025 Protein Ql (U) Negative [facility] OB Biophysical Prof W/O NSTo n 03-16-2025 OB Biophysical Prof W/O NST [facility] Imaging Services [address] [place], [place] [id number] OB Biophysical Prof W/O NST MR#: [id number] Acct: [id number] Name: TASIA ALMAGUER Rep #: [id number] : 1990 F 34 From: Eleno Mejia DO PCP: Care Physician,No Primary Status: DEP CLI Study: OB Biophysical Prof W/O NST Date of Exam: 03/02 12/24 Exam# [id number] Ordering Dr: Tere Xiong CNM PROCEDURE: OB [...] Total biophysical profile score: 8/8 [facility] CC: CLAUDIO Xiong; No Primary Care Physician Cruise Coordinator: Signed Normal [facility] Military Logistics Specialist Office Visit Reporton 03-16-2025 Military Logistics Specialist Office Visit Report [facility] [address], [address] [place] [address] OFFICE VISIT Date of Service: 03/16/25 MR#: [id number] Acct: [id number] Name: TASIA ALMAGUER Rep #: [id number] : 1990 Provider: CLAUDIO Mckinney ams Age/Sex: 34/F Location: [facility] Status: Signed Intake Vital Signs 01/17/25 15:47 03/09/25 13:43 03/16/25 13:31 Height 5 ft 7 in 5 ft 7 in 5 ft 7 in Weight: 288 lb 2 oz 290 lb 4 oz BMI 45.1 45.4 BP 133/86 H 120/79 Intake Visit Reasons: 34 WK NST ONLY School Psychometrist Required: No Is patient in pain?: No [...] current occupational status: employed 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 Normal [facility] OB Biophysical Prof W/O NSTo n 03-13-2025 OB Biophysical Prof W/O NST [facility] Imaging Services [address] [place] [address] OB Biophysical Prof W/O NST MR#: [id number] Acct: [id number] Name: TASIA ALMAGUER Rep #: [id number] : 1990 F 34 From: Srinivas mayes MD PCP: Care Physician,No Primary Status: REG CLI Study: OB Biophysical Prof W/O NST Date of Exam: 03/02 09/26 Exam# [id number] Ordering Dr: Mae Reeves PROCEDURE: OB BIOPHYSICAL [...] NST IMPRESSION: Normal biophysical profile. Reading Location: [id number] CC: Dr. Mae Reeves MD; No Primary Care Physician Cruise Coordinator: Signed Normal [facility] Laboratory - Chemistry and C hemistry - challengeOrdered By: Tere Xiong on 03-09-2025 Glucose Ql (U) Negative [facility] Laboratory - UrinalysisOrder ed By: Tere Xiong on 03-09-2025 Protein Ql (U) Negative [facility] Military Logistics Specialist Office Visit Reporton 03-09-2025 Military Logistics Specialist Office Visit Report [facility], [address] [place] [address] OFFICE VISIT Date of Service: 03/09/25 MR#: [id number] Acct: [id number] Name: TASIA ALMAGUER Rep #: [id number] : 1990 Provider: CLAUDIO Mckinney ams Age/Sex: 34/F Location: [facility] Status: Signed Intake Vital Signs 01/17/25 15:47 02/26/25 13:25 03/09/25 13:43 Height 5 ft 7 in 5 ft 7 in 5 ft 7 in Weight: 286 lb 8 oz 288 lb 2 oz BMI 44.9 45.1 BP 133/79 H 133/86 H Intake Visit Reasons: 33 WK OB/NST Chief Complaint: 32wk ob/nst School Psychometrist Required: No Is patient in pain?: No [...] 3-4 times per week duration: 15-30 minutes/day geoffrey/jew: None seatbelt use: always do you feel [...] - full term 8lbs 3oz Male epidural [facility] Carmelo June Delivery Date: 06/17/21 Last [...] -???-???-???-???-?? ?-???-???-???- (more content not included)... Normal [facility] OB Biophysical Prof W/O NSTo n 03-06-2025 OB Biophysical Prof W/O NST [facility] Imaging Services [address] [place] [address] OB Biophysical Prof W/O NST MR#: [id number] Acct: [id number] Name: TASIA ALMAGUER Rep #: [id number] : 1990 F 34 From: Srinivas mayes MD PCP: Care Physician,No Primary Status: REG CLI Study: OB Biophysical Prof W/O NST Date of Exam: 12/24 Exam# [id number] Ordering Dr: Mae Reeves PROCEDURE: OB BIOPHYSICAL [...] NST IMPRESSION: Normal biophysical profile. Reading Location: [facility] CC: Dr. Mae Reeves MD; No Primary Care Physician Cruise Coordinator: Signed Normal [facility] OB Limited With Biometricson 03-06-2025 OB Limited With Biometrics [facility] Imaging Services [address] [place] [address] OB Limited With Biometrics MR#: [id number] Acct: [id number] Name: TASIA ALMAGUER Rep #: [id number] : 1990 F 34 From: Srinivas mayes MD PCP: Care Physician,No Primary Status: REG CLI Study: OB Limited With Biometrics Date of Exam: 03/06 Exam# [id number] Ordering Dr: Mae Reeves PROCEDURE: OB LIMITED [...] 31 weeks and 4 days. Reading Location: [id number] CC: Dr. Mae Reeves MD; No Primary Care Physician Cruise Coordinator: Signed Normal [facility] Laboratory - Chemistry and C hemistry - challengeOrdered By: Tere Xiong on 02-26-2025 Glucose Ql (U) Negative [facility] Laboratory - UrinalysisOrder ed By: Tere Xiong on 02-26-2025 Protein Ql (U) Negative [facility] Military Logistics Specialist Office Visit Reporton 02-26-2025 Military Logistics Specialist Office Visit Report [facility] [address], [address] [place] [address] OFFICE VISIT Date of Service: 02/26/25 MR#: [id number] Acct: [id number] Name: TASIA ALMAGUER Rep #: [id number] : 1990 Provider: CLAUDIO Mckinney ams Age/Sex: 34/F [place] [facility] [place] Status: Signed Intake Vital Signs 12/18/24 15:44 02/12/25 13:48 02/26/25 13:25 Height 5 ft 7 in 5 ft 7 in 5 ft 7 in Weight: 286 lb 8 oz BMI 44.9 BP 133/79 H Intake Visit Reasons: 30 wk ob Chief Complaint: 30wk OB School Psychometrist Required: No Is patient in pain?: No [...] 3-4 times per week duration: 15-30 minutes/day geoffrey/jew: None seatbelt use: always do you feel [...] - full term 8lbs 3oz Male epidural [facility] S Joy June Delivery Date: 06/17/21 [...] BP Urine (more content not included)... Normal [facility] Absolute lymphocyte countOrd ered By: Mae Reeves on 02-12-2025 Lymphocytes Auto (Unsp spec) [#/Vol] 2.60 10*3/uL 0.83-4.[address] [facility] Absolute neutrophil countOrd ered By: Mae Reeves on 02-12-2025 Neutrophils (Bld) [#/Vol] 7.4 10*3/uL 2.0-7.[address] [facility] Automated blood erythrocyte countOrdered By: Mae Novanetta on 02-12-2025 RBC (Bld) [#/Vol] 3.75 10*6/uL Low 4.2-5.4 [facility] Comment on above: Performed By: #### L 509.8002, L100.0100, L3890.6006 ####[facility] [address] [place], [place], [id number] Automated blood hematocrit ( percentage)Ordered By: Mae Novanetta on 02-12-2025 Hematocrit (Bld) [Volume fraction] 33.8 % Low 37-[address] [facility] Comment on above: Performed By: #### L 509.8002, L100.0100, L3890.6006 ####[facility] [address] [place], [place], [id number] Automated lymphocyte count a s percentage of total leukocytesOrdered By: Mae Novanetta on 02-12-2025 Lymphocytes/100 WBC Auto (Unsp spec) 23.8 % 19-[address] [facility] Basophil percentageOrdered B y: Mae Novanetta on 02-12-2025 Basophils/100 WBC (Bld) 0.3 % Normal 0-1 [facility] Comment on above: Performed By: #### L 509.8002, L100.0100, L3890.6006 ####[facility] [address] [place], [place], [id number] CBC W/Diff, Automatedon 07- Absolute Lymph 2.60 X10 3/uL Normal 0.83-4.[address] [facility] Comment on above: Performed By: #### L 509.8002, L100.0100, L3890.6006 ####[facility] [address] [place], [address] Absolute Neut 7.4 X10 3/uL Normal 2.0-7.[address] [facility] Comment on above: Performed By: #### L 509.8002, L100.0100, L3890.6006 ####[facility] [address] [place], [address] IG% 0.800 Normal 0.0-0.[address] [facility] Comment on above: Result Comment: IG% - Immature Granulocytes (promyelocytes, myelocytes and metamyelocytes) > 1% indicates that a LEFT SHIFT is Present. Performed By: #### L 509.8002, L100.0100, L3890.6006 ####[facility] [address] [place], [address] Lymphocytes/100 WBC (Bld) 23.8 % Normal 19-[address] [facility] Comment on above: Performed By: #### L 509.8002, L100.0100, L3890.6006 ####[facility] [address] [place], [address] Nucleated RBC (Bld) [#/Vol] 0 10*3/uL Normal 0-[address] [facility] Comment on above: Performed By: #### L 509.8002, L100.0100, L3890.6006 ####[facility] [address] [place], [address] RDW SD 43.9 fl Normal 35.1-43.[address] [facility] Comment on above: Performed By: #### L 509.8002, L100.0100, L3890.6006 ####[facility] [address] [place], [address] Eosinophil percentageOrdered By: Mae Reeves on 02-12-2025 Eosinophils/100 WBC (Bld) 2.2 % Normal 0-[address] [facility] Comment on above: Performed By: #### L 509.8002, L100.0100, L3890.6006 ####[facility] [address] [place], [address] Erythrocyte distribution wid th ratioOrdered By: Mae Reeves on 02-12-2025 Erythrocyte distribution width (RBC) [Ratio] 13.4 % Normal 11.6-14.[address] [facility] Comment on above: Performed By: #### L 509.8002, L100.0100, L3890.6006 ####[facility] [address] [place], [address] Erythrocyte distribution wid th standard deviationOrdered By: Mae Reeves on 02-12-2025 Erythrocyte distribution width (RBC) [Ratio] 43.9 fl 35.1-43.[address] [facility] HIVon 02-12-2025 HIV Non-Reactive Normal Nonreactive [facility] Comment on above: Result Comment: Non- Reactive Reactive Repeatedly reactive samples must be confirmed according to CDC recommended confirmatory algorithms. The subresults for either HIVAG or AHIV can be used as an aid in the selection of the confirmation algorithm for reactive samples. Send out specimens with Reactive results to [facility] for confirmation. Order the HIV antibody detection and differentiation: [id number] Performed By: #### L 509.8002, L100.0100, L3890.6006 ####[facility] [address] [place], [address] Hemoglobin measurementOrdere d By: Mae Reeves on 02-12-2025 Hemoglobin (Bld) [Mass/Vol] 11.2 g/dL Low 12.0-15.[address] [facility] Comment on above: Performed By: #### L 509.8002, L100.0100, L3890.6006 ####[facility] [address] [place], [address] Immature granulocytes/100 WB C Auto (Bld)Ordered By: Mae Reeves on 02-12-2025 Immature granulocytes/100 WBC (Bld) 0.800 % 0.0-0.[address] [facility] Comment on above: IG% - Immature Granu locytes (promyelocytes, myelocytes and metamyelocytes) > 1% indicates that a LEFT SHIFT is Present. Laboratory - Chemistry and C hemistry - challengeOrdered By: Rebecca Jackson on 02-12-2025 Glucose Ql (U) Negative [facility] Laboratory - UrinalysisOrder ed By: Rebecca Jackson on 02-12-2025 Protein Ql (U) Negative [facility] MCV (mean corpuscular volume ) determinationOrdered By: Mae Reeves on 02-12-2025 MCV (RBC) [Entitic vol] 90.1 fL Normal 81-99 [facility] Comment on above: Performed By: #### L 509.8002, L100.0100, L3890.6006 ####[facility] [address] [place], [address] Mean corpuscular hemoglobin (MCH) determinationOrdered By: Mae Reeves on 02-12-2025 MCH (RBC) [Entitic mass] 29.9 pg Normal 27.0-32.[address] [facility] Comment on above: Performed By: #### L 509.8002, L100.0100, L3890.6006 ####[facility] [address] [place], [address] Mean corpuscular hemoglobin concentration (MCHC) determinationOrdered By: Mae Reeves on 02-12-2025 MCHC (RBC) [Mass/Vol] 33.1 g/dL Normal 32-36 [facility] Comment on above: Performed By: #### L 509.8002, L100.0100, L3890.6006 ####[facility] [address] [place], [address] Mean platelet volume determi nationOrdered By: Mae Reeves on 02-12-2025 Platelet mean volume (Bld) [Entitic vol] 9.8 fL Normal 6.2-12.[address] [facility] Comment on above: Performed By: #### L 509.8002, L100.0100, L3890.6006 ####[facility] [address] [place], [address] Monocyte percentageOrdered B y: Mae Reeves on 02-12-2025 Monocytes/100 WBC (Bld) 5.5 % Normal 0-10 [facility] Comment on above: Performed By: #### L 509.8002, L100.0100, L3890.6006 ####[facility] [address] [place], [address] Neutrophil percentageOrdered By: Mae Reeves on 02-12-2025 Neutrophils/100 WBC (Bld) 67.4 % Normal 47-70 [facility] [facility] Comment on above: Performed By: #### L 509.8002, L100.0100, L3890.6006 ####[facility] [address] [place], [address] No Panel InformationOrdered By: Mae Reeves on 02-12-2025 HIV (1&2) Antibody Non-Reactive Nonreactive [facility] Comment on above: Non-ReactiveReactive Repeatedly reactive samples must be confirmed according to CDC recommended confirmatory algorithms. The subresults for either HIVAG or AHIV can be used as an aid in the selection of the confirmation algorithm for reactive samples.Send out specimens with Reactive results to [facility] for confirmation.Order the HIV antibody detection and differentiation: #[id number] Nucleated red blood cell per centageOrdered By: Mae Reeves on 02-12-2025 Nucleated RBC/100 WBC (Bld) [Ratio] 0 % 0-[address] [facility] [employer]ist Office Visit Reporton 02-12-2025 [employer] Logistics Specialist Office Visit Report [facility]'[address], [address] [place] [address] OFFICE VISIT Date of Service: 02/12/25 MR#: [id number] Acct: [id number] Name: TASIA ALMAGUER Rep #: [id number] : 1990 Provider: VIVIANE elkins Age/Sex: 34/F [place] [facility] [place] Status: Signed with Addenda ADDENDUM by Nidhi Lyman on 02/12/25 at 1423 Office Procedure Documentation entered by Nidhi Lyman 02/12/25 14:23: Immunizations Adacel(Tdap Adolesn/Adult)(PF) 2 Lf-(2.5-5-3-5)-5 Lf/0.5 mL IM syringe Performing Provider: VIVIANE Molina NP Performing Location: [facility] Administered by: Nidhi Lyman on 02/12/25 14:22 Dose Route Admin Location Dispensed Lot Number Expiration Date NDC Man ufacturer 0.5 mL IM Left Deltoid 0.5 mL [id number] 01/29/27 85934-978-81 SANOFI-P ASTEUR VIS Given Date VIS Provided [...] 28wk ob Chief Complaint: 28 Week OB School Psychometrist Required: No Is patient in pain?: No [...] 3-4 times per week duration: 15-30 minutes/day geoffrey/jew: None seatbelt use: always do you feel [...] - full term 8lbs 3oz Male epidural [facility] Carmelo June Delivery Date: 06/17/21 Last [...] 28w 4d (more content not included)... Normal [facility] Platelet countOrdered By: Joel Reeves on 02-12-2025 Platelets (Bld) [#/Vol] 348 10*3/uL Normal 150-[address] [facility] Comment on above: Performed By: #### L 509.8002, L100.0100, L3890.6006 ####[facility] [address] [facility]. [place], [place], [phone] Syphilis Antibodieson 2024 Syphilis Abs Non-Reactive Normal Nonreactive [facility] Comment on above: Performed By: #### L 509.8002, L100.0100, L3890.6006 ####[facility] [address] [facility]. [place], [place], [phone] White blood cell (WBC) count Ordered By: Mae Reeves on 02-12-2025 WBC (Bld) [#/Vol] 10.9 10*3/uL Normal 4.4-11.0 [facility] Comment on above: Performed By: #### L 509.8002, L100.0100, L3890.6006 ####[facility] [address] [place], [address] Laboratory - Chemistry and C hemistry - challengeOrdered By: Mae Dukesanika on 01-17-2025 Glucose Ql (U) Negative [facility] Laboratory - UrinalysisOrder ed By: Mae Reeves on 01-17-2025 Protein Ql (U) Negative [facility] [employer] Logistics Specialist Office Visit Reporton 01-17-2025 Military Logistics Specialist Office Visit Report [facility] [address], [address] [place] [address] OFFICE VISIT Date of Service: 01/17/25 MR#: [id number] Acct: [id number] Name: TASIA ALMAGUER Rep #: [id number] : 1990 Provider: Dr. Mae bailey MD Age/Sex: 34/F [place] [facility] [place]: Signed Intake Vital Signs 10/23/24 14:32 01/01/25 09:01 01/17/25 15:42 01/17/25 15:47 Height 5 ft 7 in 5 ft 7 in 5 ft 7 in 5 ft 7 in Weight: 277 lb BMI 43.4 BP 118/78 Intake Visit Reasons: 24wk ob School Psychometrist Required: No Is patient in pain?: No [...] Zika: Zika virus screening: Negative : No [facility] Medical History (Updated 01/17/25 @ 16:38 by [...] 3-4 times per week duration: 15-30 minutes/day geoffrey/jew: None seatbelt use: always do you feel [...] - full term 8lbs 3oz Male epidural [facility] Carmelo June Delivery Date: 06/17/21 Last [...] -???-???-???-???-?? ?-???-???-???-???- (more content not included)... Normal [facility] Endocrinology Visit Reporton 01-01-2025 Endocrinology Visit Report [facility] [address] [facility] [place] [address] OFFICE VISIT Date of Service: 01/01/25 MR#: [id number] Acct: [id number] Name: TASIA ALMAGUER Rep #: [id number] : 1990 Provider: Joy Gar Age/Sex: 34/F [place] [facility] [place] Status: Signed Intake Vital Signs 09/25/24 13:59 [...] subcutaneous pen Patient : Yes (22 weeks) [facility] Medical History (Updated 01/01/25 @ 10:29 [...] 3-4 times per week duration: 15-30 minutes/day geoffrey/jew: None seatbelt use: always do you feel [...] hearing sharlene (more content not included)... Normal [facility] Laboratory - Hematology and Cell countsOrdered By: Theodore Dunne on 01-01-2025 HbA1c (Bld) [Mass fraction] 5.1 % 4.2-6.[address] [facility] Laboratory - Chemistry and C hemistry - challengeOrdered By: Magalys Mclaughlin on 12-18-2024 Glucose Ql (U) Negative [facility] Laboratory - UrinalysisOrder ed By: Magalys Mclaughlin on 12-18-2024 Protein Ql (U) Trace [facility] Military Logistics Specialist Office Visit Reporton 12-18-2024 Military Logistics Specialist Office Visit Report [facility]'[address], [address] [place] [address] OFFICE VISIT Date of Service: 12/18/24 MR#: [id number] Acct: [id number] Name: TASIA ALMAGUER Rep #: [id number] : 1990 Provider: Dr. Magalys Ramirez DO Age/Sex: 34/F [place] [facility] [place]: Signed Intake Vital Signs 10/23/24 14:32 11/20/24 09:28 12/18/24 15:43 12/18/24 15:44 Height 5 ft 7 in 5 ft 7 in 5 ft 7 in 5 ft 7 in Weight: 279 lb 4 oz BMI 43.7 BP 122/82 H Intake Visit Reasons: 20wk ob School Psychometrist Required: No Is patient in pain?: No [...] 3-4 times per week duration: 15-30 minutes/day geoffrey/jew: None seatbelt use: always do you feel [...] - full term 8lbs 3oz Male epidural [facility] S Joy June Delivery Date: 06/17/21 [...] list details Ini (more content not included)... [facility] L3410.9992on 11-23-2024 [facility] [place] Comment on above: Order Comment: [id number] 1msAFP SERUM RT Result Comment: TEST RESULTS [...] AFP MoM 0.55 OS[place] [address] Interpretation Interpretation: Screen Negative This result is [...] Customer Services to discuss available options. The [place] [employer] recommends amniocentesis be offered to women age 35 and older. Comment: Donna Berry, Ph.D., [facility] Director References: Available Upon Request. Multiples Of Median Cutoffs For AFP Elevations Jones 2.5 Black 2.8 IDD 2.0 Twins 4.5 Abbreviation Definitions IDD - Insulin Dep Diabetes OSBR - Open Spina Bifida Risk For further inquiries contact [facility] at [phone]. This test was developed and its performance characteristics determined by [facility]. It has not been cleared or approved by the Food and Drug Administration. TESTING PERFORMED AT [facility]. ORIGINAL REPORT ON FILE IN LAB CONTAINS ADDITIONAL TEST SITE INFORMATION. Performed By: #### L 3410.9992 ####[facility] [address] [place], [address] Laboratory - Chemistry and C hemistry - challengeOrdered By: Tere Xiong on 11-20-2024 Glucose Ql (U) Negative [facility] Laboratory - UrinalysisOrder ed By: Tere Xiong on 11-20-2024 Protein Ql (U) Negative [facility] Military Logistics Specialist Office Visit Reporton 11-20-2024 Military Logistics Specialist Office Visit Report [facility]'[address], [address] [place] [address] OFFICE VISIT Date of Service: 11/20/24 MR#: [id number] Acct: [id number] Name: TASIA ALMAGUER Rep #: [id number] : 1990 Provider: CLAUDIO Mckinney ams Age/Sex: 34/F [place] [facility] [place]: Signed Intake Vital Signs 09/25/24 08:44 10/23/24 14:32 11/20/24 09:24 11/20/24 09:28 Height 5 ft 7 in 5 ft 7 in 5 ft 7 in 5 ft 7 in Weight: 270 lb BMI 42.3 BP 129/81 H Intake Visit Reasons: 16 wk ob Chief Complaint: no concerns School Psychometrist Required: No Is patient in pain?: No [...] 3-4 times per week duration: 15-30 minutes/day geoffrey/jew: None seatbelt use: always do you feel [...] Increasing labet (more content not included)... Normal [facility] Laboratory - Chemistry and C hemistry - challengeOrdered By: Magalys Mclaughlin on 10-23-2024 Glucose Ql (U) Negative [facility] Laboratory - UrinalysisOrder ed By: Magalys Mclaughlin on 10-23-2024 Protein Ql (U) Negative [facility] Military Logistics Specialist Office Visit Reporton 10-23-2024 Military Logistics Specialist Office Visit Report [facility]'[address], [address] [place] [address] OFFICE VISIT Date of Service: 10/23/24 MR#: [id number] Acct: [id number] Name: TASIA ALMAGUER Rep #: [id number] : 1990 Provider: Dr. Magalys Ramirez, Age/Sex: 34/F [place] [facility] [place]: Signed Intake Vital Signs 09/27/23 09:56 09/25/24 13:59 10/23/24 14:32 10/23/24 14:32 Height 5 ft 7 in 5 ft 7 in 5 ft 7 in 5 ft 7 in Weight: 266 lb 6 oz BMI 41.7 BP 141/92 H Intake Visit Reasons: 12wk OB School Psychometrist Required: No Is patient in pain?: No [...] 3-4 times per week duration: 15-30 minutes/day geoffrey/jew: None seatbelt use: always do you feel safe at home: Yes additional social history: : [facility] [place] History 2 Elective abortions Hx Para 1 Spontaneous abortions 0 Hx # Term Pregnancies Ectopic pregnancies Hx # Pregnancies Multiple births # of living children 1 Past Pregnancies Del. Date Name GA/Weeks Outcome Route Bth Weight Infant Gen Labor Lgth Anesthesia Del Locatn Provider FOB 06/17/21 Ernie 39 live - full term 8lbs 3oz Male epidural [facility] Carmelo [place] June Delivery Date: 06/17/21 Last [...] Initial Weig (more content not included)... Normal [facility] Chlamydia/GC NENITA aptimaon CHLAMY,NUC ACID Negative Normal Negative [facility] Comment on above: Performed By: #### M 100.2200, L501.0900, L7000.1800 #### [facility] Laboratory [address] [place], [place], [phone] GC BY NUC ACID Negative Normal Negative [facility] Comment on above: Result Comment: Perf ormed at: =G - [facility] [address] [id number] Performance Instructor: Erna Frar MD, Phone: [phone] Performed By: #### M 100.2200, L501.0900, L7000.1800 #### [facility] [address] [place], [place], [address] Urine Cultureon 09-27-2024 URC #1,2 Below infection level. Streptococcus agalactiae (B) [place] Count <1000 Mixed Gram Positive Organisms Mixed Gram Positive Organisms MIXC Mixed contaminants. Submit a new specimen if indicated. [facility] Comment on above: Performed By: #### M 100.2200, L501.0900, L7000.1800 ####[facility] [address] [place], [address] Comprehensive Metabolic Prof ilon 09-26-2024 Albumin [Mass/Vol] 3.3 g/dL Normal 3.2-5.0 [facility] Comment on above: Performed By: #### L 501.9985, L3890.6300, L3890.6100, L500.4050, L3890.6005, L509.8000, L501.9520, L100.0100, L509.4005, BTS ####[facility] [address] [place], [address] Albumin/Globulin [Mass ratio] 0.8 {ratio} Low 0.9-2.[address] [facility] Comment on above: Performed By: #### L 501.9985, L3890.6300, L3890.6100, L500.4050, L3890.6005, L509.8000, L501.9520, L100.0100, L509.4005, BTS ####[facility] [address] [place], [address] ALK P 108 U/L Normal 45-[address] [facility] Comment on above: Performed By: #### L 501.9985, L3890.6300, L3890.6100, L500.4050, L3890.6005, L509.8000, L501.9520, L100.0100, L509.4005, BTS ####[facility] [address] [place], [address] ALT [Catalytic activity/Vol] 19 U/L Normal 13-[address] [facility] Comment on above: Performed By: #### L 501.9985, L3890.6300, L3890.6100, L500.4050, L3890.6005, L509.8000, L501.9520, L100.0100, L509.4005, BTS ####[facility] [address] [place], [address] AST [Catalytic activity/Vol] 10 U/L Low 15-[address] [facility] Comment on above: Performed By: #### L 501.9985, L3890.6300, L3890.6100, L500.4050, L3890.6005, L509.8000, L501.9520, L100.0100, L509.4005, BTS ####[facility] [address] [place], [address] Bilirubin [Mass/Vol] 0.50 mg/dL Normal 0.20-1.00 [facility] Comment on above: Result Comment: For patients on eltrombopag therapy, use of Dimension [place] TBIL is not recommended. Performed By: #### L 501.9985, L3890.6300, L3890.6100, L500.4050, L3890.6005, L509.8000, L501.9520, L100.0100, L509.4005, BTS ####[facility] [address] [place], [address] BUN/CRE 12.0 RATIO Normal 10-[address] [facility] Comment on above: Performed By: #### L 501.9985, L3890.6300, L3890.6100, L500.4050, L3890.6005, L509.8000, L501.9520, L100.0100, L509.4005, BTS ####[facility] [address] [place], [address] CA,Total 9.5 mg/dL Normal 8.5-10.[address] [facility] Comment on above: Performed By: #### L 501.9985, L3890.6300, L3890.6100, L500.4050, L3890.6005, L509.8000, L501.9520, L100.0100, L509.4005, BTS ####[facility] [address] [place], [address] Chloride [Moles/Vol] 104 mmol/L Normal 98-107 [facility] Comment on above: Performed By: #### L 501.9985, L3890.6300, L3890.6100, L500.4050, L3890.6005, L509.8000, L501.9520, L100.0100, L509.4005, BTS ####[facility] [address] [place], [address] CO2 [Moles/Vol] 24.0 mmol/L Normal 21.0-32.[address] [facility] Comment on above: Performed By: #### L 501.9985, L3890.6300, L3890.6100, L500.4050, L3890.6005, L509.8000, L501.9520, L100.0100, L509.4005, BTS ####[facility] [address] [place], [address] Creatinine [Mass/Vol] 0.66 mg/dL Normal 0.55-1.02 [facility] Comment on above: Result Comment: The validity of the calculated GFR GFRAA in patients over 70 years has not been determined. Clinical correlation is essential. Performed By: #### L 501.9985, L3890.6300, L3890.6100, L500.4050, L3890.6005, L509.8000, L501.9520, L100.0100, L509.4005, BTS ####[facility] [address] [place], [address] EST GFR - AA 132 mL/min Normal >[address] [facility] Comment on above: Result Comment: Afri can [place] GFR Calc Performed By: #### L 501.9985, L3890.6300, L3890.6100, L500.4050, L3890.6005, L509.8000, L501.9520, L100.0100, L509.4005, BTS ####[facility] [address] [place], [place], [phone](460) GAP 8 Normal 5-[address] [facility] Comment on above: Performed By: #### L 501.9985, L3890.6300, L3890.6100, L500.4050, L3890.6005, L509.8000, L501.9520, L100.0100, L509.4005, BTS ####[facility] [address] [place], [address](312) GFR/1.73 sq M.predicted among non-blacks MDRD (S/P/Bld) [Vol rate/Area] 109 mL/min/{1.73_m2} Normal >[address] [facility] Comment on above: Result Comment: Non- GFR Calc Performed By: #### L 501.9985, L3890.6300, L3890.6100, L500.4050, L3890.6005, L509.8000, L501.9520, L100.0100, L509.4005, BTS ####[facility] [address] [place], [place], [phone](813) Globulin (S) [Mass/Vol] 4.3 g/dL High 2.2-4.2 [facility] Comment on above: Performed By: #### L 501.9985, L3890.6300, L3890.6100, L500.4050, L3890.6005, L509.8000, L501.9520, L100.0100, L509.4005, BTS ####[facility] [address] [place], [place], [phone] Glucose [Mass/Vol] 233 mg/dL High 74-106 [facility] Comment on above: Result Comment: Gluc ose result greater than or equal to 200 mg/dL suggests DIABETES MELLITUS per A.D.A. criteria. Performed By: #### L 501.9985, L3890.6300, L3890.6100, L500.4050, L3890.6005, L509.8000, L501.9520, L100.0100, L509.4005, BTS ####[facility] [address] [place], [address] Potassium [Moles/Vol] 4.0 mmol/L Normal 3.5-5.1 [facility] Comment on above: Performed By: #### L 501.9985, L3890.6300, L3890.6100, L500.4050, L3890.6005, L509.8000, L501.9520, L100.0100, L509.4005, BTS ####[facility] [address] [place], [address] Sodium [Moles/Vol] 136 mmol/L Normal 136-145 [facility] Comment on above: Performed By: #### L 501.9985, L3890.6300, L3890.6100, L500.4050, L3890.6005, L509.8000, L501.9520, L100.0100, L509.4005, BTS ####[facility] [address] [place], [address] T PROT 7.6 g/dL Normal 6.4-8.[address] [facility] Comment on above: Performed By: #### L 501.9985, L3890.6300, L3890.6100, L500.4050, L3890.6005, L509.8000, L501.9520, L100.0100, L509.4005, BTS ####[facility] [address] [place], [address] Urea nitrogen [Mass/Vol] 8 mg/dL Normal 7-[address] [facility] Comment on above: Performed By: #### L 501.9985, L3890.6300, L3890.6100, L500.4050, L3890.6005, L509.8000, L501.9520, L100.0100, L509.4005, BTS ####[facility] [address] [place], [place], [phone] Thyroid Stim Hormone (TSH)on 09-26-2024 TSH 0.942 uIU/mL Normal 0.358-3.[address] [facility] Comment on above: Performed By: #### L 501.9985, L3890.6300, L3890.6100, L500.4050, L3890.6005, L509.8000, L501.9520, L100.0100, L509.4005, BTS ####[facility] [address] [facility] [address] [place], [place], [phone] Absolute lymphocyte countOrd ered By: Magalys Mclaughlin on 09-25-2024 Lymphocytes Auto (Unsp spec) [#/Vol] 2.79 10*3/uL 0.83-4.[address] [facility] Absolute neutrophil countOrd ered By: Magalys Mclaughlin on 09-25-2024 Neutrophils (Bld) [#/Vol] 7.4 10*3/uL 2.0-7.[address] [facility] Albumin to globulin ratioOrd ered By: Magalys Mclaughlin on 09-25-2024 Albumin/Globulin [Mass ratio] 0.8 {ratio} Low 0.9-2.[address] [facility] Automated lymphocyte count a s percentage of total leukocytesOrdered By: Magalys Mclaughlin on 09-25-2024 Lymphocytes/100 WBC Auto (Unsp spec) 24.6 % 19-[address] [facility] Basophil percentageOrdered B y: Magalys Mclaughlin on 09-25-2024 Basophils/100 WBC (Bld) 0.4 % 0-1 [facility] Bilirubin, totalOrdered By: Magalys Mclaughlin on 09-25-2024 Bilirubin [Mass/Vol] 0.50 mg/dL 0.20-1.00 [facility] Comment on above: For patients on eltr ombopag therapy, use of Dimension [place] TBIL is not recommended. Blood urea nitrogen (BUN)/cr eatinine ratioOrdered By: Magalys Mclaughlin on 09-25-2024 Urea nitrogen/Creatinine [Mass ratio] 12.0 mg/mg 10- [facility] C. trachomatis rRNA NENITA+prob e Ql (Unsp spec)Ordered By: Magalys Mclaughlin on 09-25-2024 Chlamydia DNA (NENITA) Negative Negative [facility] CBC W/Diff, Automatedon 09-03 Absolute Lymph 2.79 X10 3/uL Normal 0.83-4.[address] [facility] Comment on above: Performed By: #### L 501.9985, L3890.6300, L3890.6100, L500.4050, L3890.6005, L509.8000, L501.9520, L100.0100, L509.4005, BTS ####[facility] [address] [place], [address] Absolute Neut 7.4 X10 3/uL Normal 2.0-7.[address] [facility] Comment on above: Performed By: #### L 501.9985, L3890.6300, L3890.6100, L500.4050, L3890.6005, L509.8000, L501.9520, L100.0100, L509.4005, BTS ####[facility] [address] [place], [address] Basophils/100 WBC (Bld) 0.4 % Normal 0-1 [facility] Comment on above: Performed By: #### L 501.9985, L3890.6300, L3890.6100, L500.4050, L3890.6005, L509.8000, L501.9520, L100.0100, L509.4005, BTS ####[facility] [address] [place], [address] Eosinophils/100 WBC (Bld) 4.1 % Normal 0-[address] [facility] Comment on above: Performed By: #### L 501.9985, L3890.6300, L3890.6100, L500.4050, L3890.6005, L509.8000, L501.9520, L100.0100, L509.4005, BTS ####[facility] [address] [place], [place], [phone](419) Erythrocyte distribution width (RBC) [Ratio] 12.3 % Normal 11.6-14.[address] [facility] Comment on above: Performed By: #### L 501.9985, L3890.6300, L3890.6100, L500.4050, L3890.6005, L509.8000, L501.9520, L100.0100, L509.4005, BTS ####[facility] [address] [place], [address](366) Hematocrit (Bld) [Volume fraction] 42.6 % Normal 37-[address] [facility] Comment on above: Performed By: #### L 501.9985, L3890.6300, L3890.6100, L500.4050, L3890.6005, L509.8000, L501.9520, L100.0100, L509.4005, BTS ####[facility] [address] [place], [place], [phone](360) Hemoglobin (Bld) [Mass/Vol] 14.5 g/dL Normal 12.0-15.[address] [facility] Comment on above: Performed By: #### L 501.9985, L3890.6300, L3890.6100, L500.4050, L3890.6005, L509.8000, L501.9520, L100.0100, L509.4005, BTS ####[facility] [address] [place], [place], [phone](050) IG% 0.500 Normal 0.0-0.[address] [facility] Comment on above: Result Comment: IG% - Immature Granulocytes (promyelocytes, myelocytes and metamyelocytes) > 1% indicates that a LEFT SHIFT is Present. Performed By: #### L 501.9985, L3890.6300, L3890.6100, L500.4050, L3890.6005, L509.8000, L501.9520, L100.0100, L509.4005, BTS ####[facility] [address] [place], [place], [phone](578) Lymphocytes/100 WBC (Bld) 24.6 % Normal 19-[address] [facility] Comment on above: Performed By: #### L 501.9985, L3890.6300, L3890.6100, L500.4050, L3890.6005, L509.8000, L501.9520, L100.0100, L509.4005, BTS ####[facility] [address] [place], [place], [phone] MCH (RBC) [Entitic mass] 30.0 pg Normal 27.0-32.[address] [facility] Comment on above: Performed By: #### L 501.9985, L3890.6300, L3890.6100, L500.4050, L3890.6005, L509.8000, L501.9520, L100.0100, L509.4005, BTS ####[facility] [address] [place], [place], [phone] MCHC (RBC) [Mass/Vol] 34.0 g/dL Normal 32-36 [facility] Comment on above: Performed By: #### L 501.9985, L3890.6300, L3890.6100, L500.4050, L3890.6005, L509.8000, L501.9520, L100.0100, L509.4005, BTS ####[facility] [address] [place], [place], [phone](227) MCV (RBC) [Entitic vol] 88.2 fL Normal 81-99 [facility] Comment on above: Performed By: #### L 501.9985, L3890.6300, L3890.6100, L500.4050, L3890.6005, L509.8000, L501.9520, L100.0100, L509.4005, BTS ####[facility] [address] [place], [address] Monocytes/100 WBC (Bld) 4.9 % Normal 0-10 [facility] Comment on above: Performed By: #### L 501.9985, L3890.6300, L3890.6100, L500.4050, L3890.6005, L509.8000, L501.9520, L100.0100, L509.4005, BTS ####[facility] [address] [place], [address] Neutrophils/100 WBC (Bld) 65.5 % Normal 47-[address] [facility] Comment on above: Performed By: #### L 501.9985, L3890.6300, L3890.6100, L500.4050, L3890.6005, L509.8000, L501.9520, L100.0100, L509.4005, BTS ####[facility] [address] [place], [place], [phone] Nucleated RBC (Bld) [#/Vol] 0 10*3/uL Normal 0-[address] [facility] Comment on above: Performed By: #### L 501.9985, L3890.6300, L3890.6100, L500.4050, L3890.6005, L509.8000, L501.9520, L100.0100, L509.4005, BTS ####[facility] [address] [place], [address] Platelet mean volume (Bld) [Entitic vol] 9.7 fL Normal 6.2-12.[address] [facility] Comment on above: Performed By: #### L 501.9985, L3890.6300, L3890.6100, L500.4050, L3890.6005, L509.8000, L501.9520, L100.0100, L509.4005, BTS ####[facility] [address] [place], [address] Platelets (Bld) [#/Vol] 307 10*3/uL Normal 150-[address] [facility] Comment on above: Performed By: #### L 501.9985, L3890.6300, L3890.6100, L500.4050, L3890.6005, L509.8000, L501.9520, L100.0100, L509.4005, BTS ####[facility] [address] [place], [address] RBC (Bld) [#/Vol] 4.83 10*6/uL Normal 4.2-5.4 [facility] Comment on above: Performed By: #### L 501.9985, L3890.6300, L3890.6100, L500.4050, L3890.6005, L509.8000, L501.9520, L100.0100, L509.4005, BTS ####[facility] [address] [place], [address] RDW SD 39.9 fl Normal 35.1-43.[address] [facility] Comment on above: Performed By: #### L 501.9985, L3890.6300, L3890.6100, L500.4050, L3890.6005, L509.8000, L501.9520, L100.0100, L509.4005, BTS ####[facility] [address] [place], [address] WBC (Bld) [#/Vol] 11.3 10*3/uL High 4.4-11.0 [facility] Comment on above: Performed By: #### L 501.9985, L3890.6300, L3890.6100, L500.4050, L3890.6005, L509.8000, L501.9520, L100.0100, L509.4005, BTS ####[facility] [address] [place], [place], [address] Carbon dioxide measurementOr dered By: Magalys Mclaughlin on 09-25-2024 CO2 [Moles/Vol] 24.0 mmol/L 21.0-32.[address] [facility] Chlamydia trachomatis rRNA d etection by probe and target amplification methodOrdered By: Magalys Mclaughlin on 09-25-2024 C. trachomatis rRNA NENITA+probe Ql (Unsp spec) Negative Negative [facility] Chloride measurementOrdered By: Magalys Mclaughlin on 09-25-2024 Chloride [Moles/Vol] 104 mmol/L 98-107 [facility] Visit Reporton 09-25-2024 Endocrinology Visit Report [facility] [address] [place], [place] [address] OFFICE VISIT Date of Service: 09/25/24 MR#: [id number] Acct: [id number] Name: TASIA ALMAGUER Rep #: [id number] : 1990 Provider: Joy Gar Age/Sex: 34/F Location: [facility] [place] Status: Signed Intake Vital Signs 09/27/23 09:56 [...] Rx 5/32 (BD Ultra-Fine Kiah Pen Needle) [facility] Medical History (Updated 09/25/24 @ 14:59 [...] 3-4 times per week duration: 15-30 minutes/day geoffrey/jew: None seatbelt use: always do you feel safe at home: Yes additional social history: : Slade Madedn Female Reproductive History Menstrual Ab spontaneous: 0 [...] appearing, comfortable, (more content not included)... Normal [facility] Eosinophil percentageOrdered By: Magalys Mclaughlin on 09-25-2024 Eosinophils/100 WBC (Bld) 4.1 % 0-[address] [facility] Erythrocyte distribution wid th ratioOrdered By: Magalys Mclaughlin on 09-25-2024 Erythrocyte distribution width (RBC) [Ratio] 12.3 % 11.6-14.[address] [facility] Erythrocyte distribution wid th standard deviationOrdered By: Magalys Mclaughlin on 09-25-2024 Erythrocyte distribution width (RBC) [Entitic vol] 39.9 fL 35.1-43.[address] [facility] Erythrocyte distribution width (RBC) [Ratio] 39.9 fl 35.1-43.[address] [facility] Estimated glomerular filtrat ion rate (GFR) AmericanOrdered By: Magalys Mclaughlin on 09-25-2024 Estimated GFR (MDRD) Amer 132 mL/min >[address] [facility] Comment on above: GFR Calc Glomerular filtration rate ( GFR) estimationOrdered By: Magalys Mclaughlin on 09-25-2024 Estimated GFR (MDRD) Non-Af Amer 109 mL/min >[address] [facility] Comment on above: Non- GFR Calc GFR/1.73 sq M.predicted among non-blacks MDRD (S/P/Bld) [Vol rate/Area] 109 mL/min/{1.73_m2} >[address] [facility] Comment on above: Non- GFR Calc Glucose measurementOrdered B y: Magalys Mclaughlin on 09-25-2024 Glucose [Mass/Vol] 233 mg/dL High 74-106 [facility] Comment on above: Glucose result great er than or equal to 200 mg/dLsuggests DIABETES MELLITUS per A.D.A. criteria. HIV - WCHon 09-25-2024 HIV Non-Reactive Normal Nonreactive [facility] Comment on above: Order Comment: Reaso n for Exam: Performed By: #### L 501.9985, L3890.6300, L3890.6100, L500.4050, L3890.6005, L509.8000, L501.9520, L100.0100, L509.4005, BTS ####[facility] [address] [place], [address] HIV 1 and HIV-2 antibody ass ay with HIV-1 p24 antigen detectionOrdered By: Magalys Mclaughlin on 09-25-2024 HIV 1+2 Ab+HIV1 p24 Ag IA Ql Non-Reactive Nonreactive [facility] HIV 1+2 Ab+HIV1 p24 Ag IA Ql Ordered By: Magalys Mclaughlin on 09-25-2024 HIV (1&2) Antibody Non-Reactive Nonreactive [facility] Hematocrit Auto (Bld) [Volum e fraction]Ordered By: Magalys Mclaughlin on 09-25-2024 Hematocrit (Bld) [Volume fraction] 42.6 % 37-[address] [facility] Hemoglobin A1con 09-25-2024 HbA1c (Bld) [Mass fraction] 9.9 % High 3.8-5.[address] [facility] Comment on above: Result Comment: Norm al < 5.7 % Prediabetic 5.7 - 6.4 % Diabetic >or= 6.5 % Please note range changes. Performed By: #### L 501.9985, L3890.6300, L3890.6100, L500.4050, L3890.6005, L509.8000, L501.9520, L100.0100, L509.4005, BTS ####[facility] [address] [place], [address] Hemoglobin A1c percentageOrd ered By: Magalys Mclaughlin on 09-25-2024 HbA1c (Bld) [Mass fraction] 9.9 % High 3.8-5.[address] [facility] Comment on above: Normal < 5.7 % Predi abetic 5.7 - 6.4 % Diabetic >or= 6.5 % Please note range changes. Hemoglobin measurementOrdere d By: Magalys Mclaughlin on 09-25-2024 Hemoglobin (Bld) [Mass/Vol] 14.5 g/dL 12.0-15.[address] [facility] Hepatitis B Surface Antigeno n 09-25-2024 HEP B Surf Ag Non-Reactive Normal Nonreactive [facility] Comment on above: Order Comment: Reaso n for Exam: Performed By: #### L 501.9985, L3890.6300, L3890.6100, L500.4050, L3890.6005, L509.8000, L501.9520, L100.0100, L509.4005, BTS ####[facility] [address] [place], [place], [id number] Hepatitis B surface antigen detectionOrdered By: Magalys Mclaughlin on 09-25-2024 Hepatitis B Surface Antigen Non-Reactive Nonreactive [facility] Hepatitis C Antibodyon 09-25 Hepatitis C AB Non-Reactive Normal Nonreactive [facility] Comment on above: Order Comment: Reaso n for Exam: Result Comment: Non Reactive: < 0.8 Equivocal: >/= 0.8 to < 1.0 Reactive: >/= 1.0 The [facility] requires that a reactive/equivocal HCV antibody result be sent out for confirmation. HCV Quant by PCR testing. Performed By: #### L 501.9985, L3890.6300, L3890.6100, L500.4050, L3890.6005, L509.8000, L501.9520, L100.0100, L509.4005, BTS ####[facility] [address] [place], [place], [id number] Hepatitis C virus antibody a ssayOrdered By: Magalys Mclaughlin on 09-25-2024 Hepatitis C Antibody Non-Reactive Nonreactive [facility] Comment on above: Non Reactive: < 0.8 Equivocal: >/= 0.8 to < 1.0 Reactive: >/= 1.0The [facility] requires that a reactive/equivocal HCV antibody result be sent out for confirmation. HCV Quant by PCR testing. Immature granulocytes/100 WB C Auto (Bld)Ordered By: Magalys Mclaughlin on 09-25-2024 Immature granulocytes/100 WBC (Bld) 0.500 % 0.0-0.[address] [facility] Comment on above: IG% - Immature Granu locytes (promyelocytes, myelocytes and metamyelocytes) > 1% indicates that a LEFT SHIFT is Present. L509.8000on 09-25-2024 Syphilis Abs Non-Reactive Normal [facility] Comment on above: Order Comment: Reaso n for Exam: Performed By: #### L 501.9985, L3890.6300, L3890.6100, L500.4050, L3890.6005, L509.8000, L501.9520, L100.0100, L509.4005, BTS ####[facility] [address] [place], [address] Laboratory - Chemistry and C hemistry - challengeOrdered By: Magalys Mclaughlin on 09-25-2024 AST [Catalytic activity/Vol] 10 U/L Low 15-[address] [facility] Lymphocytes Auto (Unsp spec) [#/Vol]Ordered By: Magalys Mclaughlin on 09-25-2024 Lymphocytes (Bld) [#/Vol] 2.79 10*3/uL 0.83-4.[address] [facility] Lymphocytes/100 WBC Auto (Un sp spec)Ordered By: Magalys Mclaughlin on 09-25-2024 Lymphocytes/100 WBC (Bld) 24.6 % 19-[address] [facility] MCV (mean corpuscular volume ) determinationOrdered By: Magalys Mclaughlin on 09-25-2024 MCV (RBC) [Entitic vol] 88.2 fL 81-99 [facility] Mean corpuscular hemoglobin (MCH) determinationOrdered By: Magalyskristy Mclaughlin on 09-25-2024 MCH (RBC) [Entitic mass] 30.0 pg 27.0-32.[address] [facility] Mean corpuscular hemoglobin concentration (MCHC) determinationOrdered By: Magalys Mclaughlin on 09-25-2024 MCHC (RBC) [Mass/Vol] 34.0 g/dL 32-36 [facility] Mean platelet volume determi nationOrdered By: Magalys Mclaughlin on 09-25-2024 Platelet mean volume (Bld) [Entitic vol] 9.7 fL 6.2-12.[address] [facility] Monocyte percentageOrdered B y: Magalys Mclaughlin on 09-25-2024 Monocytes/100 WBC (Bld) 4.9 % 0-10 [facility] Neisseria gonorrhoeae nuclei c acid detection by amplified probe techniqueOrdered By: Magalys Mclaughlin on 09-25-2024 N. gonorrhoeae DNA NENITA+probe Ql (Unsp spec) Negative Negative [facility] Comment on above: Performed at: = - [facility] [address], [place] [id number] Director: Erna Farr MD, Phone: [phone] Neutrophil percentageOrdered By: Magalys Mclaughlin on 09-25-2024 Neutrophils/100 WBC (Bld) 65.5 % 47-[address] [facility] Nucleated red blood cell per centageOrdered By: Magalys Mclaughlin on 09-25-2024 Nucleated RBC/100 WBC (Bld) [Ratio] 0 % 0-[address] [facility] [employer] Office Visit Reporton 09-25-2024 [employer] Office Visit Report [facility] [address], [address] [place] [address] OFFICE VISIT Date of Service: 09/25/24 MR#: [id number] Acct: [id number] Name: TASIA ALMAGUER Rep #: [id number] : 1990 Provider: Dr. 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 Normal [facility] Platelet countOrdered By: Feliciano jiangmagdi Arnoldo on 09-25-2024 Platelets (Bld) [#/Vol] 307 10*3/uL 150-[address] [facility] Potassium measurementOrdered By: Magalys Mclaughlin on 09-25-2024 Potassium [Moles/Vol] 4.0 mmol/L 3.5-5.1 [facility] Protein+Creatinine Ratio,Uri neon 09-25-2024 PROT:CRE RATIO 228 mg/g CRE High 0-[address] [facility] Comment on above: Performed By: #### M 100.2200, L501.0900, L7000.1800 #### [facility] [address] [place], [address] Protein (U) [Mass/Vol] 10.0 mg/dL Normal <11.9 [facility] Comment on above: Performed By: #### M 100.2200, L501.0900, L7000.1800 #### [facility] [address] [place], [address] UR CREAT 43.80 mg/dL Normal NO RANGE EST. [facility] Comment on above: Performed By: #### M 100.2200, L501.0900, L7000.1800 #### [facility] [address] [place], [address] Protein/Creatinine (U) [Mass ratio]Ordered By: Magalys Mclaughlin on 09-25-2024 Urine Protein/Creatinine Ratio 228 mg/g CRE High 0-[address] [facility] RBC Auto (Bld) [#/Vol]Ordere d By: Magalys Mclaughlin on 09-25-2024 RBC (Bld) [#/Vol] 4.83 10*6/uL 4.2-5.4 [facility] Random urine protein measure mentOrdered By: Magalys Mclaughlin on 09-25-2024 Protein (U) [Mass/Vol] 10.0 mg/dL 0.0-11.8 [facility] Rubella IgGon 09-25-2024 Rubella IgG Reactive Normal Nonreactive [facility] Comment on above: Order Comment: Reaso n for Exam: Result Comment: Anti body Results Interpretation of Immune Status Non Reactive Presumed Non-Immune Equivocal Equivocal Reactive Presumed Immune Performed By: #### L 501.9985, L3890.6300, L3890.6100, L500.4050, L3890.6005, L509.8000, L501.9520, L100.0100, L509.4005, BTS ####[facility] [address] [place], [address] Rubella immune status IgGOrd ered By: Magalys Mclaughlin on 09-25-2024 Rubella IgG Antibody Reactive Nonreactive [facility] Comment on above: Antibody Results Int erpretation of Immune Status Non Reactive Presumed Non-Immune Equivocal Equivocal Reactive Presumed Immune Serum Treponema species anti body detectionOrdered By: Magalys Mclaughlin on 09-25-2024 Treponema sp Ab Ql (S) Non-Reactive [facility] Serum anion gap measurementO rdered By: Magalys Mclaughlin on 09-25-2024 Anion gap [Moles/Vol] 8 mmol/L 5-15 [facility] Serum globulin measurementOr dered By: Magalys Mclaughlin on 09-25-2024 Globulin (S) [Mass/Vol] 4.3 g/dL High 2.2-4.2 [facility] Serum or plasma alanine arteaga otransferase (ALT) measurementOrdered By: Magalys Mclaughlin on 09-25-2024 ALT [Catalytic activity/Vol] 19 U/L 13-[address] [facility] Serum or plasma albumin lisa urement (mass/volume)Ordered By: Magalys Mclaughlin on 09-25-2024 Albumin [Mass/Vol] 3.3 g/dL 3.2-5.0 [facility] Serum or plasma alkaline ruthie sphatase measurementOrdered By: Magalys Mclaughlin on 09-25-2024 ALP [Catalytic activity/Vol] 108 U/L 45-[address] [facility] Serum or plasma calcium lisa urement (mass/volume)Ordered By: Magalys Mclaughlin on 09-25-2024 Calcium [Mass/Vol] 9.5 mg/dL 8.5-10.1 [facility] Serum or plasma creatinine m easurement (mass/volume)Ordered By: Magalys Mclaughlin on 09-25-2024 Creatinine [Mass/Vol] 0.66 mg/dL 0.55-1.02 [facility] Comment on above: The validity of the calculated GFR & GFRAA in patients over 70 years has not been determined. Clinical correlation is essential. Serum or plasma thyroid stim ulating hormone (TSH) measurement (units/volume)Ordered By: Magalys Mclaughlin on 09-25-2024 TSH Qn 0.942 uIU/mL 0.358-3.[address] [facility] Serum or plasma urea nitroge n measurement (mass/volume)Ordered By: Magalys Mclaughlin on 09-25-2024 Urea nitrogen [Mass/Vol] 8 mg/dL 7-[address] [facility] Sodium levelOrdered By: Ruth Mclaughlin on 09-25-2024 Sodium [Moles/Vol] 136 mmol/L 136-145 [facility] TSH QnOrdered By: Magalys roach on 09-25-2024 Thyroid Stimulating Hormone (TSH) 0.942 uIU/mL 0.358-3.[address] [facility] Total proteinOrdered By: Eunice Mclaughlin on 09-25-2024 Protein [Mass/Vol] 7.6 g/dL 6.4-8.2 [facility] Treponema sp Ab Ql (S)Ordere d By: Magalys Mclaughlin on 09-25-2024 Syphilis Total Antibody Non-Reactive [facility] Type AND Screenon 09-25-2024 Ab SCREEN GEL Negative Normal [facility] Comment on above: Order Comment: PN Performed By: #### L 501.9985, L3890.6300, L3890.6100, L500.4050, L3890.6005, L509.8000, L501.9520, L100.0100, L509.4005, BTS ####[facility] [address] [place], [place], [phone] ABO and Rh group Nom (Bld) Blood group O Rh(D) positive Normal [facility] Comment on above: Order Comment: PN Performed By: #### L 501.9985, L3890.6300, L3890.6100, L500.4050, L3890.6005, L509.8000, L501.9520, L100.0100, L509.4005, BTS ####[facility] [address] [place], [place], [id number] Urine creatinine measurement (mass/volume)Ordered By: Magalys Mclaughlin on 09-25-2024 Creatinine (U) [Mass/Vol] 43.80 mg/dL NO RANGE EST. [facility] Urine cultureOrdered By: Eunice Mclaughlin on 09-25-2024 Bacteria identified Cx Nom (U) Streptococcus agalactiae (B) Abnormal [facility] Bacteria identified Cx Nom (U) Positive Abnormal [facility] Bacteria identified Cx Nom (U) Streptococcus agalactiae (B) Abnormal [facility] Bacteria identified Cx Nom (U) Positive Abnormal [facility] Urine protein/creatinine mas s ratioOrdered By: Magalys Mclaughlin on 09-25-2024 Protein/Creatinine (U) [Mass ratio] 228 mg/g CRE High 0-[address] [facility] White blood cell (WBC) count Ordered By: Magalys Mclaughlin on 09-25-2024 WBC (Bld) [#/Vol] 11.3 10*3/uL High 4.4-11.0 [facility] CNOVon 06-09-2023 CNOV Office Visit (ENDOAV) ---- NIDHI ALMAGUER ([id number]) 1990 F Date Time Provider Department 06/09/23 [...] LVESD 5) Other pertinent labs reviewed in [facility] PHYSICAL EXAM: BP 138/95 Pulse 118 Wt [...] tag. C (more content not included)... Normal [facility] HEMOGLOBIN A1C (POC)on 06-09 HbA1c (Bld) [Mass fraction] 11.0 % Abnormal 4.2 - 5.6 % [facility] HbA1c (Bld) [Mass fraction]o n 09-10-2022 Interpretation and review of laboratory results Abnormal [facility] POC Glycosylated Hemoglobin (Hb A1C)on 09-10-2022 HbA1c (Bld) [Mass fraction] 11.3 % Abnormal 4.0 - 6.0 % [facility] Comprehensive metabolic 2000 panelon 12-23-2021 Albumin [Mass/Vol] 3.2 g/dL 3.2 - 5.2 g/dL [facility] ALP [Catalytic activity/Vol] 109 U/L 40 - 140 U/L [facility] ALT [Catalytic activity/Vol] 29 U/L 14 - 65 U/L [facility] Anion gap [Moles/Vol] 15 mmol/L 10 - 20 mmol/L [facility] AST [Catalytic activity/Vol] 20 U/L 0 - 45 U/L [facility] Bilirubin [Mass/Vol] 0.4 mg/dL 0 - 1.3 mg/dL [facility] Calcium [Mass/Vol] 8.9 mg/dL 8.4 - 10. 2 mg/dL [facility] Chloride [Moles/Vol] 105 mmol/L 98 - 10 8 mmol/L [facility] Creatinine [Mass/Vol] 0.71 mg/dL 0.40 - 1.10 mg/dL [facility] GFR/1.73 sq M.predicted CKD-EPI (S/P/Bld) [Vol rate/Area] 115 - PINF [facility] Glucose [Mass/Vol] 304 mg/dL High 65 - 99 mg/dL [facility] HCO3 [Moles/Vol] 22 mmol/L 21 - 32 mmol/L [facility] Potassium [Moles/Vol] 4.4 mmol/L 3.5 - 5.1 mmol/L [facility] Protein [Mass/Vol] 7.1 g/dL 6 - 8 g/dL [facility] Sodium [Moles/Vol] 138 mmol/L 135 - 145 mmol/L [facility] Urea nitrogen [Mass/Vol] 9 mg/dL 8 - 25 mg/d L [facility] Urea nitrogen/Creatinine [Mass ratio] 12.7 mg/mg 10 - 20 [facility] The eGFR should be used for monitoring renal function only and not for medication dosing. [facility] HbA1c (Bld) [Mass fraction]o n 12-23-2021 Interpretation and review of laboratory results Abnormal [facility] Laboratory - Hematology and Cell countson 12-23-2021 HbA1c (Bld) [Mass fraction] 9.6 % Abnormal 4 - 6 % [facility] Lipid 1996 panelon 2 Cholesterol [Mass/Vol] 195 mg/dL 100 - 199 mg/dL [facility] Comment on above: National Cholesterol Education Program Guidelines: Cholesterol Desirable: <200 mg/dL Borderline High: 200-239 mg/dL High: greater than or equal to 240 mg/dL Cholesterol in HDL [Mass/Vol] 58 mg/dL 40 - 59 mg/dL [facility] Comment on above: National Cholesterol Education Program Guidelines: HDL Cholesterol Low: <40 mg/dL Near Optimal: 40-59 mg/dL High: greater than or equal to 60 mg/dL Cholesterol in LDL [Mass/Vol] 73 mg/dL 10 - 130 mg/dL [facility] Comment on above: National Cholesterol Education Program Guidelines: LDL Cholesterol Optimal: <100 mg/dL Near Optimal/above Optimal: 100-129 mg/dL Borderline High: 130-159 mg/dL High: 160-189 mg/dL Very High: greater than or equal to 190 mg/dL Cholesterol non HDL [Mass/Vol] 137 mg/dL [facility] Comment on above: National Cholesterol Education Program Guidelines: NON HDL Cholesterol Desirable: <130 mg/dL Borderline High: 130-159 mg/dL High: 160-189 mg/dL Very High: > or = 190 mg/dL Cholesterol.total/Choles terol in HDL [Mass ratio] 3.4 {ratio} ratio [facility] Comment on above: Female Cholesterol/H DL Ratio: Average risk: 4.4 1/2 average risk: 3.3 2 x average risk: 7.1 Triglyceride [Mass/Vol] 322 mg/dL High 30 - 150 mg/ dL [facility] [facility] Comment on above: National Cholesterol Education Program Guidelines: Triglyceride Normal: <150 mg/dL Borderline High: 150-199 mg/dL High: 200-499 mg/dL Very High: greater than or equal to 500 mg/dL No Panel Informationon 12-23 Interpretation and review of laboratory results Abnormal [facility] TSH DL <= 0.005 mIU/L Qnon 0 12-23-2021 Interpretation and review of laboratory results Normal [facility] TSH Qn 0.63 m[IU]/L [facility] ESTROGENS, TOTALon 8 ESTROGENS, TOTAL 257 pg/mL Normal [facility] Comment on above: Result Comment: (NOT E) Prepubertal <40 Female Cycle: 1-10 Days 61 - 394 11-20 Days 122 - 437 21-30 Days 156 - 350 Post-Menopausal <40 HMG Treatment for Ovulation Induction: 400 - 800PERFORMED AT [facility] Performed By: #### R TSH ####Testing performed at [address] [address]#### LTEST, LLH, LFSH ####Testing performed at [address] [address]#### LESTS ####Testing performed at [facility] FSHon 06-07-2018 FSH 6.7 mIU/mL Normal [facility] Comment on above: Result Comment: (NOT E) Adult Female: Follicular phase 3.5 - 12.5 Ovulation phase 4.7 - 21.5 Luteal phase 1.7 - 7.7 Postmenopausal 25.8 - 134.8PERFORMED AT [facility] Performed By: #### R TSH ####[place] [address]#### LTEST, LLH, LFSH ####Testing performed at [address] [place] [address]#### LESTS ####Testing performed at [facility] [place] LUTEINIZING HORMONEon 2017 LH 23.7 mIU/mL Normal [facility] Comment on above: Result Comment: (NOT E) Adult Female: Follicular phase 2.4 - 12.6 Ovulation phase 14.0 - 95.6 Luteal phase 1.0 - 11.4 Postmenopausal 7.7 - 58.5PERFORMED AT [facility] Performed By: #### R TSH ####[place] [address]#### LTEST, LLH, LFSH ####Testing performed at [address] [place] [address]#### LESTS ####Testing performed at [facility] [place] TESTOSTERONEon 06-07-2018 Testosterone mass conc 36 ng/dL Normal 8-48 [facility] Comment on above: Result Comment: PERF ORMED AT [facility] Performed By: #### R TSH ####Testing performed at [address] [address]#### LTEST, LLH, LFSH ####Testing performed at [address] [place] [address]#### LESTS ####Testing performed at [facility] [place] TSH,REFLEX FREE T4on 018 TSH,REFLEX FREE T4 1.037 uIU/ML Normal 0.45-5.33 [facility] Comment on above: Performed By: #### R TSH ####Testing performed at [address] [address]#### LTEST, LLH, LFSH ####Testing performed at [address] [place] [address]#### LESTS ####Testing performed at [facility] [place] PAP IG,RFX HPV ASCUon 2017 DIAGNOSIS: Comment [facility] Comment on above: Result Comment: NEGA TIVE FOR INTRAEPITHELIAL LESION AND MALIGNANCY. IGLBP CPT CODE AUTOMATION Comment [facility] Comment on above: Result Comment: (NOT E)This liquid based ThinPrep(R) pap test was screened with theuse of an image guided system. NOTE: Comment [facility] Comment on above: Result Comment: (NOT E)The Pap smear is a screening test designed to aid in the detection ofpremalignant and malignant conditions of the uterine cervix. It isnot a diagnostic procedure and should not be used as the sole meansof detecting cervical cancer. Both false-positive and false-negativereports do occur. PERFORMED BY: Comment [facility] Comment on above: Result Comment: Madhvai Estrada Dock Clerk (ASCP) SPECIMEN ADEQUACY: Comment [facility] Comment on above: Result Comment: (NOT E)Satisfactory for evaluation. Endocervical and/or squamous metaplasticcells (endocervical component) are present. . Comment [facility] Comment on above: Result Comment: (NOT E)The HPV DNA reflex criteria were not met with this specimen resulttherefore, no HPV testing was performed.Dates / Results....[id number] #No. of containers..01 ThinPrep VialPERFORMED AT [facility] . . [facility] Vital Signs Date Time Vital Sign Value Performing Clinician Facility 04-03-2025 16:52-0400 Diastolic blood pressure 83 mm[Hg] No Primary Care Physician [facility] 04-03-2025 16:52-0400 Heart rate 108 /min No Primary Care Physician [facility] 04-03-2025 16:52-0400 Systolic blood pressure 128 mm[Hg] No Primary Care Physician [facility] 04-03-2025 16:42-0400 Body height 170.18 cm No Primary Care Physician [facility] 04-03-2025 16:42-0400 Body mass index (BMI) [Ratio] 45.8 kg/m2 No Primary Care Physician [facility] 04-03-2025 16:42-0400 Body weight 132.7 kg No Primary Care Physician [facility] 03-23-2025 10:41-0400 Body height 170.18 cm No Primary Care Physician [facility] 03-23-2025 10:41-0400 Body mass index (BMI) [Ratio] 45.4 kg/m2 No Primary Care Physician [facility] 03-23-2025 10:41-0400 Body weight 131.71 kg No Primary Care Physician [facility] 03-23-2025 10:41-0400 Diastolic blood pressure 83 mm[Hg] No Primary Care Physician [facility] 03-23-2025 10:41-0400 Systolic blood pressure 128 mm[Hg] No Primary Care Physician [facility] 03-16-2025 14:58-0400 Diastolic blood pressure 67 mm[Hg] No Primary Care Physician [facility] 03-16-2025 14:58-0400 Heart rate 107 /min No Primary Care Physician [facility] 03-16-2025 14:58-0400 Systolic blood pressure 111 mm[Hg] No Primary Care Physician [facility] 03-16-2025 14:57-0400 Body temperature 97.3 [degF] No Primary Care Physician [facility] 03-16-2025 14:57-0400 Respiratory rate 18 /min No Primary Care Physician [facility] 03-16-2025 14:27-0400 Body height 170.18 cm No Primary Care Physician [facility] 03-16-2025 14:27-0400 Body mass index (BMI) [Ratio] 45.4 kg/m2 No Primary Care Physician [facility] 03-16-2025 14:27-0400 Body weight 131.54 kg No Primary Care Physician [facility] 03-16-2025 13:31-0400 Body height 170.18 cm No Primary Care Physician [facility] 03-16-2025 13:31-0400 Body mass index (BMI) [Ratio] 45.4 kg/m2 No Primary Care Physician [facility] 03-16-2025 13:31-0400 Body weight 131.65 kg No Primary Care Physician [facility] 03-16-2025 13:31-0400 Diastolic blood pressure 79 mm[Hg] No Primary Care Physician [facility] 03-16-2025 13:31-0400 Systolic blood pressure 120 mm[Hg] No Primary Care Physician [facility] 03-09-2025 13:43-0400 Body height 170.18 cm No Primary Care Physician [facility] 03-09-2025 13:43-0400 Body mass index (BMI) [Ratio] 45.1 kg/m2 No Primary Care Physician [facility] 03-09-2025 13:43-0400 Body weight 130.69 kg No Primary Care Physician [facility] 03-09-2025 13:43-0400 Diastolic blood pressure 86 mm[Hg] No Primary Care Physician [facility] 03-09-2025 13:43-0400 Systolic blood pressure 133 mm[Hg] No Primary Care Physician [facility] 03-02-2025 07:01-0400 Body height 170.2 cm Zita Randolph MD Work Phone: [facility] 03-02-2025 07:01-0400 Body mass index (BMI) [Ratio] 44.64 kg/m2 Zita Randolph MD Work Phone: [facility] 03-02-2025 07:01-0400 Body temperature 97.81 [degF] Zita Randolph MD Work Phone: [facility] 03-02-2025 07:01-0400 Body weight 129.28 kg Zita Randolph MD Work Phone: [facility] 03-02-2025 07:01-0400 Diastolic blood pressure 86 mm[Hg] Zita Randolph MD Work Phone: [facility] 03-02-2025 07:01-0400 Heart rate 106 /min Zita Randolph MD Work Phone: [facility] 03-02-2025 07:01-0400 Respiratory rate 16 /min Zita Randolph MD Work Phone: [facility] 03-02-2025 07:01-0400 SaO2% (BldA) [Mass fraction] 97 % Zita Randolph MD Work Phone: [facility] 03-02-2025 07:01-0400 Systolic blood pressure 127 mm[Hg] Zita Randolph MD Work Phone: [facility] 02-26-2025 13:25-0400 Body height 170.18 cm No Primary Care Physician [facility] 02-26-2025 13:25-0400 Body mass index (BMI) [Ratio] 44.9 kg/m2 No Primary Care Physician [facility] 02-26-2025 13:25-0400 Body weight 129.95 kg No Primary Care Physician [facility] 02-26-2025 13:25-0400 Diastolic blood pressure 79 mm[Hg] No Primary Care Physician [facility] 02-26-2025 13:25-0400 Systolic blood pressure 133 mm[Hg] No Primary Care Physician [facility] 02-12-2025 13:48-0400 Body height 170.18 cm No Primary Care Physician [facility] 02-12-2025 13:39-0400 Body mass index (BMI) [Ratio] 44.9 kg/m2 No Primary Care Physician [facility] 02-12-2025 13:39-0400 Body weight 130.18 kg No Primary Care Physician [facility] 02-12-2025 13:39-0400 Diastolic blood pressure 82 mm[Hg] No Primary Care Physician [facility] 02-12-2025 13:39-0400 Systolic blood pressure 122 mm[Hg] No Primary Care Physician [facility] 01-17-2025 15:47-0400 Body height 170.18 cm No Primary Care Physician [facility] 01-17-2025 15:42-0400 Body mass index (BMI) [Ratio] 43.4 kg/m2 No Primary Care Physician [facility] 01-17-2025 15:42-0400 Body weight 125.64 kg No Primary Care Physician [facility] 01-17-2025 15:42-0400 Diastolic blood pressure 78 mm[Hg] No Primary Care Physician [facility] 01-17-2025 15:42-0400 Systolic blood pressure 118 mm[Hg] No Primary Care Physician [facility] 01-01-2025 09:01-0400 Body height 170.18 cm No Primary Care Physician [facility] 01-01-2025 09:01-0400 Body mass index (BMI) [Ratio] 43.4 kg/m2 No Primary Care Physician [facility] 01-01-2025 09:01-0400 Body weight 125.87 kg No Primary Care Physician [facility] 01-01-2025 09:01-0400 Diastolic blood pressure 84 mm[Hg] No Primary Care Physician [facility] 01-01-2025 09:01-0400 Heart rate 104 /min No Primary Care Physician [facility] 01-01-2025 09:01-0400 SaO2% (BldA) [Mass fraction] 98 % No Primary Care Physician [facility] 01-01-2025 09:01-0400 Systolic blood pressure 128 mm[Hg] No Primary Care Physician [facility] 01-01-2025 07:51-0400 Body height 170.2 cm Amador Chacorta DO Work Phone: [facility] 01-01-2025 07:51-0400 Body mass index (BMI) [Ratio] 43.38 kg/m2 Amador Chacorta DO Work Phone: [facility] 01-01-2025 07:51-0400 Body temperature 98.29 [degF] Amador Chacorta DO Work Phone: [facility] 01-01-2025 07:51-0400 Body weight 125.65 kg Amador Chacorta DO Work Phone: [facility] 01-01-2025 07:51-0400 Diastolic blood pressure 83 mm[Hg] Amador Chacorta DO Work Phone: [facility] 01-01-2025 07:51-0400 Heart rate 103 /min Amador Chacorta DO Work Phone: [facility] 01-01-2025 07:51-0400 Respiratory rate 16 /min Amador Chacorta DO Work Phone: [facility] 01-01-2025 07:51-0400 SaO2% (BldA) [Mass fraction] 98 % Amador Chacorta DO Work Phone: [facility] 01-01-2025 07:51-0400 Systolic blood pressure 131 mm[Hg] Amador Chacorta DO Work Phone: [facility] 12-18-2024 15:44-0400 Body height 170.18 cm No Primary Care Physician [facility] 12-18-2024 15:43-0400 Body mass index (BMI) [Ratio] 43.7 kg/m2 No Primary Care Physician [facility] 12-18-2024 15:43-0400 Body weight 126.66 kg No Primary Care Physician [facility] 12-18-2024 15:43-0400 Diastolic blood pressure 82 mm[Hg] No Primary Care Physician [facility] 12-18-2024 15:43-0400 Systolic blood pressure 122 mm[Hg] No Primary Care Physician [facility] 11-20-2024 09:24-0400 Body mass index (BMI) [Ratio] 42.3 kg/m2 No Primary Care Physician [facility] 11-20-2024 09:24-0400 Body weight 122.46 kg No Primary Care Physician [facility] 11-20-2024 09:24-0400 Diastolic blood pressure 81 mm[Hg] No Primary Care Physician [facility] 11-20-2024 09:24-0400 Systolic blood pressure 129 mm[Hg] No Primary Care Physician [facility] 10-23-2024 14:32-0400 Body mass index (BMI) [Ratio] 41.7 kg/m2 No Primary Care Physician [facility] 10-23-2024 14:32-0400 Body weight 120.82 kg No Primary Care Physician [facility] 10-23-2024 14:32-0400 Diastolic blood pressure 92 mm[Hg] No Primary Care Physician [facility] 10-23-2024 14:32-0400 Systolic blood pressure 141 mm[Hg] No Primary Care Physician [facility] 09-25-2024 13:59-0500 Body height 170.18 cm No Primary Care Physician [facility] 09-25-2024 13:59-0500 Body mass index (BMI) [Ratio] 40.7 kg/m2 No Primary Care Physician [facility] 09-25-2024 13:59-0500 Body weight 118.04 kg No Primary Care Physician [facility] 09-25-2024 13:59-0500 Diastolic blood pressure 105 mm[Hg] No Primary Care Physician [facility] 09-25-2024 13:59-0500 Heart rate 119 /min No Primary Care Physician [facility] 09-25-2024 13:59-0500 SaO2% (BldA) [Mass fraction] 98 % No Primary Care Physician [facility] 09-25-2024 13:59-0500 Systolic blood pressure 156 mm[Hg] No Primary Care Physician [facility] 09-25-2024 08:42-0500 Body mass index (BMI) [Ratio] 40.7 kg/m2 No Primary Care Physician [facility] 09-25-2024 08:42-0500 Body weight 117.99 kg No Primary Care Physician [facility] 09-25-2024 08:42-0500 Diastolic blood pressure 93 mm[Hg] No Primary Care Physician [facility] 09-25-2024 08:42-0500 Systolic blood pressure 146 mm[Hg] No Primary Care Physician [facility] 01-10-2024 16:02-0400 Body height 170.2 cm Zita Randolph MD Work Phone: [facility] 01-10-2024 16:02-0400 Body mass index (BMI) [Ratio] 42.13 kg/m2 Zita Randolph MD Work Phone: [facility] 01-10-2024 16:02-0400 Body temperature 98.01 [degF] Zita Randolph MD Work Phone: [facility] 01-10-2024 16:02-0400 Body weight 122.02 kg Zita Randolph MD Work Phone: [facility] 01-10-2024 16:02-0400 Diastolic blood pressure 68 mm[Hg] Zita Randolph MD Work Phone: [facility] 01-10-2024 16:02-0400 Heart rate 125 /min Zita Randolph MD Work Phone: [facility] 01-10-2024 16:02-0400 Respiratory rate 16 /min Zita Randolph MD Work Phone: [facility] 01-10-2024 16:02-0400 SaO2% (BldA) [Mass fraction] 98 % Zita Randolph MD Work Phone: [facility] 01-10-2024 16:02-0400 Systolic blood pressure 123 mm[Hg] Zita Randolph MD Work Phone: [facility] 06-09-2023 10:22-0500 Body weight 123.65 kg Yossi Castellon MD Work Phone: [facility] 06-09-2023 10:22-0500 Diastolic blood pressure 95 mm[Hg] Yossi Castellon MD Work Phone: [facility] 06-09-2023 10:22-0500 Heart rate 118 /min Yossi Castellon MD Work Phone: [facility] 06-09-2023 10:22-0500 Systolic blood pressure 138 mm[Hg] Yossi Castellon MD Work Phone: [facility] 09-10-2022 07:59-0500 Body height 170.2 cm Zita Randolph MD Work Phone: [facility] 09-10-2022 07:59-0500 Body mass index (BMI) [Ratio] 40.72 kg/m2 Zita Randolph MD Work Phone: [facility] 09-10-2022 07:59-0500 Body temperature 98.29 [degF] Zita Randolph MD Work Phone: [facility] 09-10-2022 07:59-0500 Body weight 117.94 kg Zita Randolph MD Work Phone: [facility] 09-10-2022 07:59-0500 Diastolic blood pressure 81 mm[Hg] Zita Randolph MD Work Phone: [facility] 09-10-2022 07:59-0500 Heart rate 126 /min Zita Randolph MD Work Phone: [facility] 09-10-2022 07:59-0500 Respiratory rate 16 /min Zita Randolph MD Work Phone: [facility] 09-10-2022 07:59-0500 SaO2% (BldA) [Mass fraction] 98 % Zita Randolph MD Work Phone: [facility] 09-10-2022 07:59-0500 Systolic blood pressure 118 mm[Hg] Zita Randolph MD Work Phone: [facility] 12-23-2021 09:05-0400 Diastolic blood pressure 85 mm[Hg] Zita Randolph MD Work Phone: [facility] 12-23-2021 09:05-0400 Heart rate 113 /min Zita Randolph MD Work Phone: [facility] 12-23-2021 09:05-0400 Systolic blood pressure 155 mm[Hg] Zita Randolph MD Work Phone: [facility] 12-23-2021 09:00-0400 Body height 170.2 cm Zita Randolph MD Work Phone: [facility] 12-23-2021 09:00-0400 Body mass index (BMI) [Ratio] 41.5 kg/m2 Zita Randolph MD Work Phone: [facility] 12-23-2021 09:00-0400 Body temperature 98.91 [degF] Zita Randolph MD Work Phone: [facility] 12-23-2021 09:00-0400 Body weight 120.2 kg Zita Randolph MD Work Phone: [facility] 12-23-2021 09:00-0400 Respiratory rate 16 /min Zita Randolph MD Work Phone: [facility] 12-23-2021 09:00-0400 SaO2% (BldA) [Mass fraction] 98 % Zita Randolph MD Work Phone: [facility] 10-25-2020 12:00-0400 Height 170.2 cm Luz Elenavasiliy Chamorrot [facility] 10-24-2020 12:58-0400 BMI (Body Mass Index) 40.44 kg/m2 Zita Randolph [facility] 10-24-2020 12:58-0400 Body Temperature 98.71 [degF] [facility]2020 12:58-0400 Body weight 117.12 kg [facility] 10-24-2020 12:58-0400 BP Diastolic 78 mm[Hg] [facility] 10-24-2020 12:58-0400 BP Systolic 109 mm[Hg] [facility] 10-24-2020 12:58-0400 Height 170.2 cm [facility] 10-24-2020 12:58-0400 Pulse (Heart Rate) 102 /min [facility] 10-24-2020 12:58-0400 Pulse Oximetry 99 % [facility] 10-24-2020 12:58-0400 Respiratory Rate 16 /min [facility] 10-07-2020 09:12-0500 BP Diastolic 89 mm[Hg] [facility] 10-07-2020 09:12-0500 BP Systolic 153 mm[Hg] [facility] 10-07-2020 09:04-0500 BMI (Body Mass Index) 41.87 kg/m2 [facility] 10-07-2020 09:04-0500 Body Temperature 98.2 [degF] [facility] 10-07-2020 09:04-0500 Body weight 121.25 kg [facility] 10-07-2020 09:04-0500 Height 170.2 cm [facility] 10-07-2020 09:04-0500 Pulse (Heart Rate) 86 /min [facility] 10-07-2020 09:04-0500 Pulse Oximetry 99 % [facility] 10-07-2020 09:04-0500 Respiratory Rate 18 /min [facility] Encounters Encounter Date Encounter Type Care Provider Facility Start: 04-03-2025 End: 04-03-2025 ambulatory No Primary Care Physician -[facility] Start: 04-03-2025 End: 04-03-[address] Mae Reeves MD -[facility] Work Phone: Start: 04-03-[address] Mae Reeves MD -[facility] Work Phone: Start: 04-03-2025 ambulatory Mae Padron lity:[facility] Start: 03-30-[address] Mae Reeves MD -[facility] Work Phone: Start: 03-30-2025 ambulatory Mae Leandro Padron lity:[facility] Start: 03-27-[address] Mae Reeves MD -[facility] Work Phone: Start: 03-27-2025 ambulatory ZITA RANDOLPH Facility: [facility] Start: 03-23-2025 End: 03-23-[address] Mae Reeves MD -[facility] Work Phone: Start: 03-23-2025 End: 03-23-2025 ambulatory No Primary Care Physician -[facility] Start: 03-20-2025 End: 03-20-2025 ambulatory No Primary Care Physician -[facility] Start: 03-20-2025 End: 03-20-[address] Mae Reeves MD -[facility] Work Phone: Start: 03-20-2025 End: 03-20-2025 ambulatory Mae Reeves Facility:[facility] Start: 03-17-2025 ambulatory No Primary Car e Physician Facility:[facility] Start: 03-17-2025 Non-patient / [facility] Start: 03-16-2025 End: 03-16-2025 Patient encounter procedure Tere Xiong CNM -[facility] Work Phone: Start: 03-16-2025 End: 03-16-2025 ambulatory No Primary Care Physician [facility] Start: 03-16-2025 ambulatory No Primary Car e Physician Facility:[facility] Start: 03-16-2025 Non-patient / Non-visit Veronica Yoel ins CN -[facility] Start: 03-13-2025 End: 03-13-2025 ambulatory No Primary Care Physician -[facility] Start: 03-13-2025 End: 03-13-[address] Mae Reeves MD -[facility] Work Phone: Start: 03-13-2025 End: 03-13-2025 [facility] Start: 03-09-2025 End: 03-09-2025 Patient encounter procedure Tere GUERIN -[facility] Work Phone: Start: 03-09-2025 End: 03-09-2025 ambulatory No Primary Care Physician -[facility] Start: 03-06-2025 End: 03-06-2025 ambulatory No Primary Care Physician -[facility] Start: 03-06-2025 End: 03-06-[address] Mae Reeves MD -[facility] Work Phone: Start: 03-06-2025 End: 03-06-2025 ambulatory Mae Reeves Facility:[facility] Start: 03-02-2025 End: 03-02-20[facility] Start: 03-02-2025 End: 03-02-2025 Office outpatient visit 25 minutes Zita Randolph MD Work Phone: [facility] Primary Care Physicians Comment on above: Hypertension, unspec ified type (Primary Dx); Type 2 diabetes mellitus without complication, unspecified whether group home insulin use (HCC); Obesity, morbid, BMI 40.0-49.9 (HCC) Start: 02-26-2025 End: 02-26-2025 Patient encounter procedure Tere Xiong CNM -[facility] Work Phone: Start: 02-26-2025 End: 02-26-2025 ambulatory No Primary Care Physician -[facility] Start: 02-13-2025 End: 02-13-2025 ambulatory [facility] Start: 02-12-2025 End: 02-12-2025 Patient encounter procedure Rebecca PAN -[facility] Work Phone: Start: 02-12-2025 End: 02-12-2025 ambulatory No Primary Care Physician -[facility] Start: 02-12-2025 End: 02-12-2025 ambulatory No Primary Care Physician Facility:[facility] Start: 01-17-2025 End: 01-17-[address] Mae Reeves MD -[facility] Work Phone: Start: 01-17-2025 End: 01-17-2025 ambulatory No Primary Care Physician [facility] Work Phone: Start: 01-11-2025 End: 01-11-2025 ambulatory MD NO PRIMARY CARE [facility] Start: 01-01-2025 End: 01-01-[address] Theodore Dunne MD -[facility] Work Phone: Start: 01-01-2025 End: 01-01-2025 ambulatory No Primary Care Physician [facility] Work Phone: Start: 01-01-2025 End: 01-01-2025 ambulatory AMADOR LUNA [facility] Start: 01-01-2025 End: 01-01-2025 Office outpatient visit 25 minutes Amador Luna DO Work Phone: [facility] Comment on above: Acute otitis media, unspecified otitis media type (Primary Dx) Start: 12-18-2024 End: 12-18-[address] Magalys Stoner DO -[facility] Work Phone: Start: 12-18-2024 End: 12-18-2024 ambulatory No Primary Care Physician [facility] Work Phone: Start: 12-05-2024 End: 12-05-2024 ambulatory MAGALYS RAPHAEL [facility] Start: 11-20-2024 End: 11-20-2024 Patient encounter procedure Tere Xiong CNM -[facility] Work Phone: Start: 11-20-2024 End: 11-20-2024 ambulatory No Primary Care Physician Facility:[facility] Start: 11-20-2024 End: 11-20-2024 ambulatory No Primary Care Physician Facility: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 Magalys Stoner DO -[facility] Work Phone: Start: 10-23-2024 End: 10-23-2024 ambulatory No Primary Care Physician Facility:[facility] Start: 09-25-2024 End: 09-25-[address] Theodore Dunne MD -[facility] Work Phone: Start: 09-25-2024 End: 09-25-2024 ambulatory No Primary Care Physician Facility:[facility] Start: 09-25-2024 End: 09-25-[address] Magalys Stoner DO -[facility] Work Phone: Start: 09-25-2024 End: 09-25-2024 ambulatory No Primary Care Physician [facility] Work Phone: Start: 09-25-2024 End: 09-25-2024 ambulatory No Primary Care Physician Facility:[facility] Start: 09-08-2024 Non-patient / Non-visit Malissa umanzor RN -[facility] Work Phone: Start: 09-08-2024 ambulatory No Primary Car e Physician Facility:[facility] Start: 08-10-2024 End: 08-10-2024 Refill Zita Randolph MD Work Phone: [facility] Comment on above: Type 2 diabetes asuncion itus without complication, unspecified whether group home insulin use (HCC) Start: 2024 End: 2024 Refill Zita Randolph MD Work Phone: [facility] Comment on above: Type 2 diabetes asuncion itus without complication, 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 (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) Start: 04-15-2024 End: 04-17-2024 Refill Zita Randolph MD Work Phone: [facility] Comment on above: Type 2 diabetes asuncion itus without complication, unspecified whether group home insulin use (HCC) Start: 01-10-2024 End: 01-10-2024 Office outpatient visit 25 minutes Zita Randolph MD Work Phone: [facility] Comment on above: Obesity, morbid, BMI 40.0-49.9 (HCC) (Primary Dx); Primary hypertension; Type 2 diabetes mellitus without complication, unspecified whether group home insulin use (HCC); Anxiety and depression; control counseling Start: 09-15-2023 Refill Zita Randolph MD Work Phone: [facility] Comment on above: Anxiety and depressi on Start: 09-14-2023 ambulatory Amalia Cagle APRN.ENVIRONMENTAL COMPLIANCE ENGINEER Work Phone: Endocrinology Comment on above: Appt 09/15/2023 Start: 09-14-2023 E-mail encounter fro m caregiver Amalia Cagle CORN DETASSELER MACHINE OPERATOR.ENVIRONMENTAL COMPLIANCE ENGINEER Work Phone: [facility] Start: 09-02-2023 ambulatory Yossi vanessa MD Work Phone: Endocrinology Comment on above: Ozempic Start: 06-09-2023 End: 06-09-2023 ambulatory YOSSI ALCAZAR Facility:[facility] Start: 06-09-2023 End: 06-09-2023 Patient encounter procedure Yossi Alcazar MD Work Phone: Endocrinology Comment on above: Type 2 diabetes (HCC ) (Primary Dx); Class 3 severe obesity with serious comorbidity and body mass index (BMI) of 40.0 to 44.9 in adult, unspecified obesity type (HCC); Hyperglycemia due to diabetes mellitus (HCC) Start: 12-31-2022 ambulatory Luz Elena Parisi RD [facility] Start: 09-10-2022 End: 09-10-2022 Office outpatient visit 25 minutes Zita Randolph MD Work Phone: [facility] Comment on above: Hypertension, unspec ified type (Primary Dx); Type 2 diabetes mellitus without complication, unspecified whether group home insulin use (HCC); Anxiety and depression Start: 08-06-2022 Refill Zita Randolph MD Work Phone: [facility] Comment on above: Anxiety and depressi on; Type 2 diabetes mellitus without complication, unspecified whether group home insulin use (HCC) Start: 08-04-2022 Refill Zita Randolph MD Work Phone: [facility] Comment on above: Type 2 diabetes asuncion itus without complication, 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 (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) Start: 02-20-2022 Refill Zita Randolph MD Work Phone: [facility] Comment on above: Type 2 diabetes asuncion itus without complication, unspecified whether group home insulin use (HCC) Start: 01-20-2022 Refill Zita Randolph MD Work Phone: [facility] Comment on above: Type 2 diabetes asuncion itus without complication, unspecified whether group home insulin use (HCC) Start: 12-23-2021 End: 12-27-2021 ambulatory ZITA RANDOLPH [facility] Start: 12-23-2021 End: 12-23-2021 Office outpatient visit 40 minutes Zita Randolph MD Work Phone: [facility] Comment on above: Elevated BP without diagnosis of hypertension (Primary Dx); Type 2 diabetes mellitus without complication, unspecified whether group home insulin use (HCC); Obesity, morbid, BMI 40.0-49.9 (HCC); Anxiety and depression Start: 07-17-2021 Refill Sue Stevens MA [facility] Start: 03-12-2021 End: 03-12-2021 Documentation procedure Jaci Diane RN [facility] Start: 01-16-2021 End: 01-16-2021 Refill Shavon Grady RN [facility] Start: 01-08-2021 End: 01-08-2021 Refill Zita Randolph MD Work Phone: [facility] Start: 12-16-2020 End: 12-16-2020 Refill Zita Randolph MD Work Phone: [facility] Start: 11-25-2020 End: 11-25-2020 Refill Shavon Grady RN [facility] Start: 10-31-2020 End: 10-31-2020 Refill Zita Gutierrezlex Randolph Work Phone: [facility] Comment on above: Type 2 diabetes asuncion itus without complication, unspecified whether group home insulin use (HCC) Start: 10-25-2020 End: 10-25-2020 Telemedicine consultation with patient Zita Bradshawef Work Phone: [facility] Comment on above: Type 2 diabetes asuncion itus without complication, 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 (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) Start: 10-24-2020 End: 10-24-2020 Office outpatient visit 25 minutes Zita Bradshawef Work Phone: [facility] Comment on above: Elevated BP without diagnosis of hypertension (Primary Dx); Type 2 diabetes mellitus without complication, unspecified whether group home insulin use (HCC); Anxiety and depression Start: 10-17-2020 End: 10-17-2020 Orders Only Sade Cueva Work Phone: [facility] Start: 10-08-2020 End: 10-08-2020 Telephone encounter Zita Randolph Work Phone: [facility] Start: 10-07-2020 End: 10-07-2020 Office outpatient new 45 minutes Zita Randolph Work Phone: [facility] Comment on above: Encounter to [facility] (Primary Dx); Anxiety and depression; Obesity, morbid, BMI 40.0-49.9 (HCC); Elevated BP without diagnosis of hypertension Start: 06-15-2018 End: 06-15-2018 Telephone encounter Franchesca Chu Work Phone: [facility] RETIREMENT ASSISTANT Comment on above: Advice Only Start: 06-06-2018 Patient encounter procedure [facility] Start: 06-06-2018 Patient encounter procedure [facility] Start: 11-01-2017 Encounter for gynecological examination (general) (routine) without abnormal findings [facility] Start: 11-01-2017 Patient encounter procedure [facility] Encounter for gynecological examination (general) (routine) without abnormal findings [facility] Procedures Date Procedure Procedure Detail Performing [...] AFP MoM 0.55 OSBR [place] 1 [place] [address] Interpretation Interpretation: Screen Negative This result is [...] Customer Services to discuss available options. The [employer] recommends amniocentesis be offered to women age 35 and older. Comment: Donna Berry, Ph.D., [facility] Director References: Available Upon Request. Multiples Of Median Cutoffs For AFP Elevations Jones 2.5 Black 2.8 IDD 2.0 Twins 4.5 Abbreviation Definitions IDD - Insulin Dep Diabetes OSBR - Open Spina Bifida Risk For further inquiries contact [facility] at [phone]. This test was developed and its performance characteristics determined by [facility]. It has not been cleared or approved by the Food and Drug Administration. TESTING PERFORMED AT [facility]. ORIGINAL REPORT ON FILE IN LAB [...] or 75+ (1 - 1-dose 75+ series) [facility] Start: 02-12-2035 Tetanus vaccination Tetanus: Every 1 0yrs [facility] Start: 03-31-2031 Tetanus vaccination Tetanus: Every 1 0yrs [facility] Start: 03-31-2031 Urine microalbumin profile DTaP,Tdap,Td Vaccine (4 - Td or Tdap) [facility] Start: 08-07-2026 Screening for malign ant neoplasm of cervix [facility] Start: 03-02-2026 Depression screening using PHQ-9 (Patient Health Questionnaire 9) score Depression Screening/Follow-Up (PHQ-2/9) [facility] Start: 06-22-2025 End: 06-22-2025 Patient encounter procedure 06/22/2025 8:40 AM EST Office Visit [facility] [address] [place] [id number] Zita Randolph MD [address] [address] [facility] Start: 04-13-2025 ambulatory Ambulatory Facility:[facility] Start: 04-10-2025 ambulatory Ambulatory Facility:[facility] Start: 04-06-2025 ambulatory Ambulatory Facility:[facility] Start: 04-03-2025 Nonstress test [facility] Start: 04-03-2025 Obstetric monitoring [facility] Start: 04-03-2025 [facility] Start: 04-03-2025 Vital signs measurements [facility] Start: 04-03-2025 Ultrasound scan for growth [facility] Start: 04-03-2025 Patient discharge [facility] Start: 04-02-2025 Influenza vaccination [facility] Start: 04-02-2025 Respiratory Syncytia l Virus Immunization: Risk, 60-74 Risk, or 75+ (1 - Risk 1-dose series) Respiratory Syncytial Virus Immunization: Risk, 60-74 Risk, or 75+ (1 - Risk 1-dose series) [facility] Start: 03-25-2025 Hemoglobin A1c measurement A1C [facility] Start: 03-16-2025 Nonstress test [facility] Start: 03-16-2025 Biophysical pr ofile panel US [facility] Start: 03-16-2025 Obstetric monitoring [facility] Start: 03-16-2025 Ultrasonography for biophysical profile without non-stress testing OB Biophysical Prof W/O NST [facility] Start: 03-16-2025 Vital signs measurements [facility] Start: 03-16-2025 [facility] Start: 03-16-2025 Patient discharge [facility] Start: 03-02-2025 End: 03-02-2025 Patient encounter procedure 03/02/2025 7:00 AM EDT Office Visit [facility] [address] [place] [address] Zita Randolph MD [address] [address] [facility] Start: 02-12-2025 CBC W Auto Different ial panel - Blood [facility] Start: 02-12-2025 Serologic test for syphilis [facility] Start: 02-12-2025 [facility] Start: 09-27-2024 History and physical examination, annual for health maintenance Wellness Visit [facility] Start: 09-19-2024 End: 09-19-2024 Patient encounter procedure 09/19/2024 2:00 PM EST Office Visit [facility] [address] [place] [address] Zita Randolph MD [address] [place] [id number] [facility] Start: 08-07-2024 Screening for malign ant neoplasm of cervix Pap Smear [facility] Start: 07-03-2024 End: 07-03-2024 Patient encounter procedure 07/03/2024 9:20 AM EST Office Visit [facility] [address] [place] [address] [place] [address] [place] [address] [facility] Start: 04-02-2024 COVID-19 Vaccine ( season) COVID-19 Vaccine ( season) [facility] Start: 04-02-2024 COVID-19 Vaccine ( season) COVID-19 Vaccine ( season) [facility] Start: 04-02-2024 Influenza vaccination [facility] Start: 01-10-2024 End: 01-10-2024 Patient encounter procedure 01/10/2024 4:00 PM EDT Office Visit [facility] [address] [place] [address] Zita Randolph MD [address] [place] [id number] [facility] Start: 09-24-2023 History and physical examination, annual for health maintenance Wellness Visit [facility] Start: 09-09-2023 Hemoglobin A1c measurement [facility] Start: 09-09-2023 Hemoglobin A1c/Hemoglobin.total in Blood HbA1C [facility] Start: 08-02-2023 Depression Assessment Depression Ass essment [facility] Start: 06-09-2023 End: 09-08-2023 Comprehensive metabolic 2000 panel - Serum or Plasma COMP METABOLIC PANEL Lab Routine Type 2 diabetes ([facility]) Expected: 06/09/2023, Expires: 09/08/2023 [facility] Work Phone: Comment on above: Expected: 06/09/2023 , Expires: 09/08/2023 Start: 06-09-2023 End: 09-08-2023 Hemoglobin A1c in Blood HGB A1C Lab Routine Type 2 diabetes ([facility]) Expected: 06/09/2023, Expires: 09/08/2023 [facility] Work Phone: Comment on above: Expected: 06/09/2023 , Expires: 09/08/2023 Start: 04-02-2023 COVID-19 Vaccine ( season) COVID-19 Vaccine ( season) [facility] Start: 04-02-2023 Influenza vaccination [facility] Start: 03-24-2023 Hemoglobin A1c measurement A1C [facility] Start: 01-12-2023 End: 01-12-2023 Patient encounter procedure 01/12/2023 11:20 AM EDT Office Visit [facility] [address] [place] [address] Zita Randolph MD [address] [address] [facility] Start: 12-23-2022 Depression screening using PHQ-9 (Patient Health Questionnaire 9) score Depression Screening/Follow-Up (PHQ-2/9) [facility] Start: 12-23-2022 Hepatitis B surface antibody level LDL Cholesterol [facility] Start: 12-23-2022 Urine screening for protein eGFR Diabetes [facility] Start: 12-22-2022 End: 12-22-2022 Patient encounter procedure 12/22/2022 Office Visit Primary Care Zita Randolph MD [address] [address] [facility] Start: 12-08-2022 Hemoglobin A1c measurement A1C [facility] Start: 11-01-2022 HPV Testing HPV Testing [facility] Start: 11-01-2022 Pap Testing Pap Testing [facility] Start: 11-01-2022 Screening for malign ant neoplasm of cervix [facility] Start: 09-10-2022 End: 09-10-2022 Patient encounter procedure 09/10/2022 Office Visit Primary Care Zita Randolph MD [facility] [address] [address] [facility] Start: 08-02-2022 Depression Assessment Depression Ass [facility] Start: 06-25-2022 eGFR Diabetes eGFR Diabetes [facility] Start: 04-02-2022 Influenza vaccination [facility] Start: 03-25-2022 Hemoglobin A1c measurement A1C [facility] Start: 03-24-2022 End: 03-24-2022 Patient encounter procedure 03/24/2022 Office Visit Primary Care Zita Randolph MD [facility] [address] [address] [facility] Start: 04-09-2021 HbA1c (Bld) [Mass fraction] A1C [facility] Start: 04-09-2021 Hemoglobin A1c measurement A1C [facility] Start: 04-02-2021 Influenza vaccination [facility] Start: 01-07-2021 Hemoglobin A1c measurement A1C [facility] Start: 11-29-2020 End: 11-29-2020 Telemedicine 11/29/2020 Telemedicine Nutrition Zita Randolph MD [facility] [address] [address] [facility] Start: 11-26-2020 End: 11-26-2020 Nutrition 11/26/2020 Nutrition Nutrition Zita Randolph MD [address] [address] [facility] Start: 11-21-2020 End: 11-21-2020 Telemedicine 11/21/2020 Telemed[place] [address] [place] [address] Brandy Bentley, RN [facility] Start: 11-11-2020 End: 11-11-2020 Office Visit [facility] Start: 10-31-2020 End: 10-31-2020 Telemedicine 10/31/2020 Telemedicine Nutrition Zita Randolph MD [address] [address] Brandy Bentley, RN [facility] Start: 10-25-2020 End: 10-25-2020 Telemedicine 10/25/2020 Telemedicine Nutrition Zita Randolph MD [address] [address] Luz Elena Sherman, ERIKA [facility] Start: 10-24-2020 End: 10-24-2020 Office Visit 10/24/2020 Office Visit Primary Care Zita Randolph MD [address] [phone] [facility] Start: 04-02-2020 Influenza vaccination Sequenti al Influenza Vaccine (#1) [facility] Start: 04-02-2020 Influenza vaccinatio n given Sequential Influenza Vaccine (#1) [facility] Start: 11-02-2018 End: 11-02-2018 Office Visit 11/02/2018 Office Visit RETIREMENT ASSISTANT Franchesca Chu, DO [address] [place] [address] [phone] [facility] RETIREMENT ASSISTANT Start: 11-01-2018 History and physical examination, annual for health maintenance Wellness Visit [facility] Start: 04-02-2018 Influenza vaccination INFLUENZA VACC INE (#1) [facility] Start: 2012 Screening for malign ant neoplasm of cervix PAP SMEAR DISCUSSION [facility] Start: 2010 Pneumococcal Vaccine : Ped or At-Risk (1 of 2 - PCV) Pneumococcal Vaccine: Ped or At-Risk (1 of 2 - PCV) [facility] Start: 2010 Third diphtheria, te tanus and acellular pertussis (DTaP) vaccination TDAP (ADULT) [facility] Start: 2009 Annual PCP Team Saw Operator daniel Disease Visit Annual PCP Team Chronic Disease Visit [facility] Start: 2009 Hepatitis C antibody , confirmatory test Hepatitis C Screening [facility] Start: 2009 [facility] C [facility] Start: 2009 Hepatitis C [facility] Start: 2009 HIV Screening HIV Screening [facility] Start: 2009 HIV screening HIV Screening [facility] Start: 2009 Tetanus vaccination [facility] Start: 2007 COVID-19 Vaccine (1 of 2) COVI D-19 Vaccine (1 of 2) [facility] Start: 2007 COVID-19 Vaccine (1) COVID-19 Vaccin e (1) [facility] Start: 2006 HIV screening HIV Screening [facility] Start: 2004 HIV screening HIV SCREENING DISCUSSION [facility] Start: 2003 COVID-19 Vaccine (1) COVID-19 Vaccin e (1) [facility] Start: 2001 3 comp foot exam completed Diabetic Foot Exam [facility] Start: 2001 Albumin DL <= 20 mg/ L (U) [Mass/Vol] Urine Microalbumin [facility] Start: 2001 Diabetic foot examination [facility] Start: 2001 Glaucoma screening [facility] Start: 2001 Hepatitis B screening Urine Albumin:Creatinine Ratio [facility] Start: 2001 Hepatitis C antibody , confirmatory test Dilated Retinal Exam [facility] Start: 2001 Microalbumin measure ment, urine, quantitative Urine Microalbumin [facility] Start: 2001 Ophthalmic examinati on and evaluation Ophthalmology Exam [facility] Start: 2001 Urine screening for protein [facility] Start: 1997 Pneumococcal vaccination [facility] Start: 1997 Pneumococcal Vaccine : Ped or At-Risk (1 - PCV) Pneumococcal Vaccine: Ped or At-Risk (1 - PCV) [facility] Start: 1997 Pneumococcal Vaccine : Ped or At-Risk (1 of 2 - PCV) Pneumococcal Vaccine: Ped or At-Risk (1 of 2 - PCV) [facility] Start: 1997 Pneumococcal Vaccine : Ped or At-Risk (1 of 2 - PPSV23) Pneumococcal Vaccine: Ped or At-Risk (1 of 2 - PPSV23) [facility] Start: 1996 COVID-19 Vaccine (#1) COVID-19 Vacci ne (#1) [facility] Start: 1996 COVID-19 Vaccine (1) COVID-19 Vaccin e (1) [facility] Start: 1994 History and physical examination, annual for health maintenance Wellness Visit [facility] Start: 01-09-1992 COVID-19 Vaccine (#1) COVID-19 Vacci ne (#1) [facility] Start: 1991 Screening for malign ant neoplasm of cervix Pap Smear [facility] Start: 1991 Tetanus vaccination Tetanus: Every 1 0yrs [facility] End: 10-07-2021 Basic metabolic 2000 panel Basic Metabolic Panel Lab Routine Encounter to establish care Obesity, morbid, BMI 40.0-49.9 (HCC) 1 Occurrences starting 10/07/2020 until 10/07/2021 [facility] Comment on above: 1 Occurrences starti ng 10/07/2020 until 10/07/2021 Basic metabolic 2000 panel Basic Metabolic Panel Lab Routine Encounter to establish care Obesity, morbid, BMI 40.0-49.9 (HCC) 10/07/2020 10:04 AM EST [facility] CBC W Auto Different ial panel - Blood [facility] End: 01-09-2025 Comprehensive metabolic 2000 panel - Serum or Plasma Comprehensive Metabolic Panel Lab Routine Type 2 diabetes mellitus without complication, unspecified whether group home insulin use (HCC) 1 Occurrences starting 01/10/2024 until 01/09/2025 [facility] Comment on above: 1 Occurrences starti ng 01/10/2024 until 01/09/2025 Erythrocyte mean corpuscular volume determination [facility] Biophysical pr ofile panel [facility] Biophysical pr ofile panel [facility] End: 10-07-2021 HbA1c (Bld) [Mass fraction] Hemoglobin A1c Lab Routine Encounter to establish care Obesity, morbid, BMI 40.0-49.9 (HCC) 1 Occurrences starting 10/07/2020 until 10/07/2021 [facility] Comment on above: 1 Occurrences starti ng 10/07/2020 until 10/07/2021 HbA1c (Bld) [Mass fraction] Hemoglobin A1c Lab Routine Encounter to establish care Obesity, morbid, BMI 40.0-49.9 (HCC) 10/07/2020 10:04 AM EST [facility] Hematocrit [Volume Fraction] of Blood [facility] Hemoglobin [Mass/vol ume] in Blood [facility] End: 01-09-2025 Hemoglobin A1c/Hemoglobin.total in Blood Hemoglobin A1c Lab Routine Type 2 diabetes mellitus without complication, unspecified whether group home insulin use (HCC) 1 Occurrences starting 01/10/2024 until 01/09/2025 [facility] Comment on above: 1 Occurrences starti ng 01/10/2024 until 01/09/2025 Leukocytes [#/volume ] in Blood [facility] End: 10-07-2021 Lipid 1996 panel Lipid Panel Lab Routine Encounter to establish care Obesity, morbid, BMI 40.0-49.9 (HCC) 1 Occurrences starting 10/07/2020 until 10/07/2021 [facility] Comment on above: 1 Occurrences starti ng 10/07/2020 until 10/07/2021 Lipid 1996 panel Lipid Panel Lab Routine Encounter to establish care Obesity, morbid, BMI 40.0-49.9 (HCC) 10/07/2020 10:04 AM EST [facility] End: 01-09-2025 Lipid 1996 panel - Serum or Plasma Lipid Panel Lab Routine Type 2 diabetes mellitus without complication, 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 (HCC) 1 Occurrences starting 01/10/2024 until 01/09/2025 [facility] Comment on above: 1 Occurrences starti ng 01/10/2024 until 01/09/2025 Mean corpuscular hemoglobin concentration determination [facility] Mean corpuscular hemoglobin determination [facility] End: 12-23-2022 Microalbumin measurement, urine, quantitative Microalbumin/Creatinine Ratio, UR Random Lab Routine Type 2 diabetes mellitus without complication, 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 (HCC) 1 Occurrences starting 12/23/2021 until 12/23/2022 [facility] Work Phone: Comment on above: 1 Occurrences starti ng 12/23/2021 until 12/23/2022 End: 01-09-2025 Microalbumin measurement, urine, quantitative Microalbumin/Creatinine Ratio, UR Random Lab Routine Type 2 diabetes mellitus without complication, 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 (HCC) 1 Occurrences starting 01/10/2024 until 01/09/2025 [facility] Comment on above: 1 Occurrences starti ng 01/10/2024 until 01/09/2025 Neutrophil count [facility] Neutrophil percent differential count [facility] Patient Education Kick Counts ED False Labor OB Triage: Return to Hospital or Notify Physician if you Experience: [facility] Work Phone: Platelets [#/volume] in Blood [facility] Red blood cell count [facility] Red cell distributio n width determination [facility] Serologic test for syphilis [facility] End: 01-09-2025 Thyrotropin [Units/volume] in Serum or Plasma TSH with Reflex Free T4 Lab Routine Type 2 diabetes mellitus without complication, unspecified whether group home insulin use (HCC) 1 Occurrences starting 01/10/2024 until 01/09/2025 [facility] Work Phone: Comment on above: 1 Occurrences starti ng 01/10/2024 until 01/09/2025 End: 10-07-2021 TSH Qn TSH with Reflex Free T4 Lab Routine Anxiety and depression 1 Occurrences starting 10/07/2020 until 10/07/2021 [facility] Comment on above: 1 Occurrences starti ng 10/07/2020 until 10/07/2021 TSH Qn TSH with Reflex Free T4 Lab Routine Anxiety and depression 10/07/2020 10:04 AM EST [facility] Ultrasound scan for growth [facility] Immunizations Immunization Date Immunization Notes Care Provider César noe 02-12-2025 tetanus toxoid, redu bev diphtheria toxoid, and acellular pertussis vaccine, adsorbed No Primary Care Physician [facility] 03-31-2021 tetanus toxoid, redu bev diphtheria toxoid, and acellular pertussis vaccine, adsorbed No Primary Care Physician [facility] Payers Date Payer Category Payer Self-pay 2020 [employer] ANTHPARDEEP PRICE UE/PREF/HMO/PPO [id number] 2020 Unknown ALEJANDRO MARAVILLA/PREF/HMO/PPO [id number] 2020-Present [id number]. 7.3.321553.315 2020 Unknown [id number]. 1.13.385.2. 7.3.201843.315 2020 Unknown [id number] 2018 Unknown ANTHEM ALEJANDRO HM O PPO POS xxxxxxxxxxxx 2018-Present [id number] 1.2.840.722484.1.13.172.2. 7.3.095669.315 1991 Unknown [id number] 2.16.840.1.305828.3.579.2. 903 1991 Unknown [id number] 2.16.840.1.160512.3.579.2. 479 1991 Unknown [id number] 2.16.840.1.721968.3.579.2. 479 1991 Unknown [id number] 2.16.840.1.435627.3.579.2. 479 1991 Unknown [id number] 2.16.840.1.133478.3.579.2. 479 1991 Unknown [id number] 2.16.840.1.749989.3.579.2. 903 1991 Unknown [id number] 2.16.840.1.191695.3.579.2. 903 Unknown [id number] 2.16840.1.635065.3.579.2. 462 Unknown [id number] 2.16.840.1.823512.3.579.2. 462 Unknown [id number] 2.16.840.1.873026.3.579.2. 462 Unknown [id number] 2.16.840.1.575223.3.579.2. 462 Unknown [id number] 2.16.840.1.064227.3.579.2. 462 Unknown [id number] 2.16.840.1.792085.3.579.2. 462 Unknown [id number] 2.16.840.1.367989.3.579.2. 462 Unknown [id number] 2.16.840.1.004180.3.579.2. 462 Unknown [id number] 2.16.840.1.668519.3.579.2. 462 Unknown [id number] 2.16.840.1.846096.3.579.2. 462 Unknown [id number] 2.16.840.1.817045.3.579.2. 462 Unknown [id number] 2.16.840.1.507773.3.579.2. 462 Unknown [id number] 2.16.840.1.594500.3.579.2. 462 Unknown [id number] 2.16.840.1.775737.3.579.2. 462 Unknown [id number] 2.16.840.1.454073.3.579.2. 462 Unknown [id number] 2.16.840.1.308644.3.579.2. 462 Unknown [id number] 2.16.840.1.103100.3.579.2. 462 Unknown [id number] 2.16.840.1.003990.3.579.2. 462 Unknown [id number] 2.16.840.1.759963.3.579.2. 462 Unknown [id number] 2.840.1.498770.3.579.2. 462 Unknown [id number] 2.16840.1.807136.3.579.2. 462 Unknown [id number] 2.16.840.1.377277.3.579.2. 462 Unknown [id number] 2.16.840.1.506421.3.579.2. 462 Unknown [id number] 2.16.840.1.662697.3.579.2. 462 Unknown [id number] 2.16.840.1.644877.3.579.2. 462 Unknown [id number] 2.16.840.1.018206.3.579.2. 462 Unknown [id number] 2.16.840.1.155110.3.579.2. 462 Unknown [id number] 2.16.840.1.969802.3.579.2. 462 Unknown [id number] 2.16.840.1.351748.3.579.2. 462 Unknown [id number] 2.16.840.1.058214.3.579.2. 462 Social History Date Type Detail Facility Start: 11-01-2017 End: 09-08-2024 Tobacco smoking status MDIS Never smoker [facility] Start: 1990 Sex Assigned At Not on file [facility] Start: 10-07-2020 End: 12-23-2021 Tobacco use and exposure Never used [facility] Start: 10-07-2020 End: 03-02-2025 Alcohol intake Ex-drinker (finding) [facility] Start: 10-07-2020 End: 10-24-2020 History SDOH Social Connections Get Together 2 [facility] Start: 10-07-2020 End: 10-24-2020 History SDOH Financial 5 [facility] Start: 10-07-2020 End: 10-24-2020 History SDOH Food Worry 1 [facility] Start: 12-13-2021 End: 12-22-2022 Exposure to SARS-CoV-2 (event) Not sure [facility] Start: 10-31-2020 History SDOH Physical Activity DPW 7 [facility] Start: 10-31-2020 History SDOH Physical Activity MPS 3 [facility] Start: 10-31-2020 History SDOH Education 17 [facility] Start: 12-23-2021 End: 03-02-2025 Cigarette pack-years [facility] Start: 10-31-2020 End: 03-02-2025 Humiliation, Afraid, [...] got money to buy more. Never true [facility] Start: 10-07-2020 Gender identity Identifies as female gender (finding) [facility] Start: 10-07-2020 Sexual orientation Heterosexual (finding) [facility] Start: 06-09-2023 Alcohol intake Current non-drinker of alcohol (finding) [facility] Start: 10-07-2024 Sex Female (finding) [facility] Start: 1990 Sex Assigned At Female [facility] Start: 08-08-2024 [facility] Medical Equipment Procedure Code Equipment Code Equipment Origin al Text Equipment Identifier Dates by Miscellaneous route daily Once daily every morning before breakfast. . [id number] Start: 10-08-2020 End: 01-06-2021 1 Lancet by Miscellaneous route daily . [id number] Start: 10-08-2020 10 Units by Miscellaneous route daily . [id number] Start: 10-11-2020 End: 01-09-2021 Inject 1 each un jeannette the skin daily . [id number] Start: 01-27-2021 Inject 1 each un jeannette the skin daily . [id number] Start: 09-22-2022 Pen Needle, Diab etic (Bd [...] Note Facility 03-21-2025 Radiology Diagnostic study note [facility] Services [address] [place], [place] [address] OB Biophysical Prof W/O CAITIE MR#: [id number] Acct: [id number] Name: TASAI ALMAGUER Rep #: [id number] : 1990 F 34 From: Chidi Shepherd MD PCP: ZITA RANDOLPH MD Status: REG CLI Study:OB Biophysical Prof W/O NST Date of Exa m: 03/20/25 Exam# [id number] Ordering Dr: Mae Waller MD PROCEDURE: OB [...] with a score of 8/8 Reading Location: [id number] CC: ZITA RANDOLPH MD; Dr. Mae Reeves MD ~ Cruise Coordinator: Signed [facility] 03-14-2025 Radiology Diagnostic study note [facility] Imaging Services [address] [place], [place] [id number] OB Biophysical Prof W/O NST MR#: [id number] Acct: [id number] Name: TASIA ALMAGUER Rep #: [id number] : 1990 F 34 From: Chidi Shepherd MD PCP: Care Physician,No Primary Status: REG CLI Study:OB Biophysical Prof W/O NST Date of Exa m: 03/13/25 Exam# [id number] Ordering Dr: Mae Waller MD PROCEDURE: OB [...] NST IMPRESSION: Normal biophysical profile. Reading Location: [id number] CC: Dr. Mae Reeves MD; No Primary Care Physician ~ Cruise Coordinator: Signed [facility] 03-09-2025 Progress note [facility] 03-09-2025 Progress note Note Date/Time March 09, 2025 2:31pm [facility] [address], [address] [place] [address] OFFICE VISIT Date of Service: 03/09/25 MR#: [id number] Acct: [id number] Name: TASIA ALMAGUER Rep # : [id number] : 1990 Provider: CLAUDIO Xiong Age/Sex: 34/F [place] [facility] [place]: Signed Intake Vital Signs 01/17/25 15:47 02/26/25 13:25 03/09/25 13:43 Height 5 ft 7 in 5 ft 7 in 5 ft 7 in Weight: 286 lb 8 oz 288 lb 2 oz BMI 44.9 45.1 BP 133/79 H 133/86 H Intake Visit Reasons: 32 WK OB/NST Chief Complaint: 32wk ob/nst School Psychometrist Required: No Is patient in pain?: No [...] tablet 500 mg PO BID Check with [facility] 09/08/24 03/09/25 History doctor blood-glucose [...] 3-4 times per week duration: 15-30 minutes/day geoffrey/jew: None seatbelt use: always do you feel [...] full term 8lbs 3oz Male ep idural [facility] [place] Delivery Date: 06/17/21 Last Updated [...] Symptoms of Preeclampsia, Infant Feeding No , [place] Education and Family Medical Leave or Disability [...] mellitus complication status: without complication Diabetes mellitus 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 truck 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 insulin use: without 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 Diabetes mellitus type: type 2 Anxiety F41.9 CPT Codes Non-Stress Test (96238) Assessment and Plan Assessment and Plan (1) [...] (Has custody of 14yr old twin nieces, [place] & Believe), : [place] (6) Hypertension: Status: [...] mellitus complication status: without complication Diabetes mellitus group home insulin use: without group home use Diabetes mellitus type: type 2 Qualified [...] Cosigner Signature: Date (if applicable) CC: ~ [facility] Work Phone: 1(698) 360-840208-08-2025 History of Present illness Narrative* Maddie Washburn MA - 03/09/2025 9:50 AM EDT Request sent to [facility] medical records. [facility]. Fax#: [phone] [facility] care * Zita Randolph MD - [...] currently 31 weeks and receiving care at [facility]. There have been no reported issues with the , and she takes labetalol 200 mg twice a day for blood pressure. She has a history of diabetes and is managed by [facility]. Her last A1c was 5.1 in December, attributed to eating small, frequent meals. She uses Lantus, a long-acting insulin, at 90 units, and Lispro, a short-acting insulin, at 22 units with meals. She also takes metformin, which she refills through her preassembler and inspector. She is on Zoloft 50 mg daily. She received the TDAP vaccination during . An echocardiogram was performed due to difficulty obtaining heart images, similar to her previous . Socially, she stays at home due to the heat and has a llpms-xlxw-pkz child. She plans to have an eye exam after delivery and has chosen a utility operator through [facility] for her new baby. Past [...] immunity. - Continue care with OB at [facility]. - Discuss RSV vaccination with OB to provide immunity. - Schedule follow-up 4 months after delivery. Type 2 diabetes mellitus, well controlled in Diabetes well controlled with A1c of 5.1. Managed by endocrinology with Lantus and Lispro. Small frequent meals adopted. - Continue current diabetes management with endocrinology at [facility]. - Obtain records from endocrinology for continuity [...] Follow Up. ZITA RANDOLPH MD [facility] [address] [facility] [address] [facility] [address] Dept: [phone] 10/07/2020 9:00 AM 12/23/2021 9:44 AM 03/02/2025 [...] PHQ-2 Total Score 0 documented in this [id number] Radiology Diagnostic study note [facility] Services [address] [place] [address] OB Biophysical Prof W/O NST MR#: [id number] Acct: [id number] Name: TASIA ALMAGUER Rep #: [id number] : 1990 F 34 From: Chidi Shepherd MD PCP: Care Physician,No Primary Status: REG CLI Study:OB Biophysical Prof W/O NST Date of Exa m: 03/06/25 Exam# [id number] Ordering Dr: Mae Waller MD PROCEDURE: OB [...] NST IMPRESSION: Normal biophysical profile. Reading Location: [facility] CC: Dr. Mae Reeves MD; No Primary Care Physician ~ Cruise Coordinator: Signed [facility]08-06-2025 Radiology Diagnostic study note [facility] Services [address] [place] [address] [place], [place] [address] OB Limited With Biometrics MR#: [id number] Acct: [id number] Name: TASIA ALMAGUER Rep #: [id number] : 1990 F 34 From: Chidi Shepherd MD PCP: Care Physician,No Primary Status: REG CLI Study:OB Limited With Biometrics Date of Exam : 03/06/25 Exam# [id number] Ordering Dr: Mae Waller MD PROCEDURE: OB [...] of 31 weeks and 4days. Reading Location: [id number] CC: Dr. Mae Reeves MD; No Primary Care Physician ~ Cruise Coordinator: Signed [facility]08-01-2025 Instructions* Patient Instructions* Zita Randolph MD - [...] look into their status. Customer Service/Billing Questions: [phone] MyChart Assistance: [phone] or [phone] Financial Assistance: [phone] or [phone] Wednesday 7 am to 5 pm Wednesday 7 am to 5 pm Wednesday 7 am to 5 pm Wednesday 8 am to 2 pm documented in this [id number] Instructions* Patient Instructions* Zita Randolph MD - [...] look into their status. Customer Service/Billing Questions: [phone] [place] Assistance: [phone] or [phone] Financial Assistance: [phone] or [phone] Wednesday 7 am to 5 pm Wednesday 7 am to 5 pm Wednesday closed 7 am to 5 pm Wednesday 8 am to 2 pm documented in this [id number] NoteChief Complaint Patient presents with Medication Refill [...] currently 31 weeks and receiving care at [facility]. There have been no reported issues with the , and she takes labetalol 200 mg twice a day for blood pressure. She has a history of diabetes and is managed by [facility]. Her last A1c was 5.1 in December, attributed to eating small, frequent meals. She uses Lantus, a long-acting insulin, at 90 units, and Lispro, a short-acting insulin, at 22 units with meals. She also takes metformin, which she refills through her preassembler and inspector. She is on Zoloft 50 mg daily. She received the TDAP vaccination during . An echocardiogram was performed due to difficulty obtaining heart images, similar to her previous . Socially, she stays at home due to the heat and has a bxldi-wena-zaz child. She plans to have an eye exam after delivery and has chosen a utility operator through [facility] for her new baby. Past [...] a day . LANCETS (more content not included)...[facility]08-01-2025 History of Present illness Narrative* Zita [...] currently 31 weeks and receiving care at [facility]. There have been no reported issues with the , and she takes labetalol 200 mg twice a day for blood pressure. She has a history of diabetes and is managed by [facility]. Her last A1c was 5.1 in December, attributed to eating small, frequent meals. She uses Lantus, a long-acting insulin, at 90 units, and Lispro, a short-acting insulin, at 22 units with meals. She also takes metformin, which she refills through her preassembler and inspector. She is on Zoloft 50 mg daily. She received the TDAP vaccination during . An echocardiogram was performed due to difficulty obtaining heart images, similar to her previous . Socially, she stays at home due to the heat and has a sqktw-kihz-rke child. She plans to have an eye exam after delivery and has chosen a utility operator through [employer] for her new baby. Past Medical History: [...] - Primary Other Obesity, morbid, BMI 40.0-49.9 ([facility]) Assessment & Plan , third trimester 31 weeks gestation, stable blood pressure, no concerns on echocardiogram. Discussed RSV vaccination for immunity. - Continue care with OB at [facility]. - Discuss RSV vaccination with OB to provide immunity. - Schedule follow-up 4 months after delivery. Type 2 diabetes mellitus, well controlled in Diabetes well controlled with A1c of 5.1. Managed by endocrinology with Lantus and Lispro. Small frequent meals adopted. - Continue current diabetes management with endocrinology at [facility]. - Obtain records from endocrinology for continuity [...] Follow Up. ZITA RANDOLPH MD [facility] [address] [facility] [address] [facility] [address] Dept: [phone] 10/07/2020 9:00 AM 12/23/2021 9:44 AM 03/02/2025 [...] PHQ-2 Total Score 0 documented in this [id number] Progress [facility]'[address], [address] [place] [address] OFFICE VISIT Date of Service: 02/12/25 MR#: [id number] Acct: [id number] Name: TASIA ALMAGUER Rep # : [id number] : 1990 Provider: VIVIANE Jackson Age/Sex: 34/F [place] [facility] [place]: Signed with Addenda ADDENDUM by Nidhi Lyman on 02/12/25 at 1423 Office Procedure Documentation entered by Nidhi Lyman 02/12/25 14:23: Immunizations Adacel(Tdap Adolesn/Adult)(PF) 2 Lf-(2.5-5-3-5)-5 Lf/0.5 mL IM syringe Performing Provider: Rebecca Jackson ARTIFICIAL PLASTIC EYE MAKER, TYRONEC Performing Location: [facility] Administered by: Nidhi Lyman on 02/12/25 14:22 Dose Route Admin Location Dispensed Lot Number Expiration Date NDC Sprinkler Repair Technician 0.5 mL IM Left Deltoid 0.5 mL [id number] 01/29/27 21837-389-70 SANOF I-PASTEUR VIS Given Date VIS Provided [...] 28wk ob Chief Complaint: 28 Week OB School Psychometrist Required: No Is patient in pain?: No [...] sensor (FreeStyle #6 ea 09/25/24 5 Rx Vmasi 3 Plus Sensor device) pen needle, diabetic [...] 3-4 times per week duration: 15-30 minutes/day geoffrey/jew: None seatbelt use: always do you feel [...] Diabetes mellitus type: type 2 Diabetes mellitus 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 truck driver insulin use: without 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 Diabetes mellitus complication status: without complication Anxiety F41.9 Assessment and Plan Assessment and Plan (1) Supervision of high-risk : Status: Acute Qualifiers: Trimester: second trimester Qualified Code(s): O09.92 - Supervision of high risk , unspecified, second trimester Comment: PRR , GIANFRANCO 05/01/25, girl [facility]: Ernie (Has custody of 14yr old twin nieces, [place] &[place]ieve), : [place] (2) : Status: Acute [...] Diabetes mellitus type: type 2 Diabetes mellitus group home insulin use: without 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 Diabetes mellitus complication status: without complication [...] care and follow up. 02/12/25 1404 s ARTIFICIAL PLASTIC EYE MAKER ARTIFICIAL PLASTIC EYE MAKER-C> Date _ Rebecca Jackson NP ARTIFICIAL PLASTIC EYE MAKER-C Cosigner Signature: Date (if applicable) CC: ~ [facility]07-14-2025 Progress note Author Rebecca Jackson [facility] Note Date/Time February 12, 2025 2:04 pm [facility] [address] [place] [address], [address] [place] [address] OFFICE VISIT Date of Service: 02/12/25 MR#: [id number] Acct: [id number] Name: TASIA ALMAGUER Rep # : [id number] : 1990 Provider: ARTIFICIAL PLASTIC EYE MAKERNathaniel Jackson Age/Sex: 34/F Location[place] [facility] [place] Status: Signed with Addenda ADDENDUM by Nidhi Lyman on 02/12/25 at 1423 Office Procedure Documentation entered by Nidhi Lyman 02/12/25 14:23: Immunizations Adacel(Tdap Adolesn/Adult)(PF) 2 Lf-(2.5-5-3-5)-5 Lf/0.5 mL IM syringe Performing Provider: Rebecca Jackson ARTIFICIAL PLASTIC EYE MAKER, ARTIFICIAL PLASTIC EYE MAKER-C Performing Location: [facility] [place] [facility] Administered by: Nidhi Lyman on 02/12/25 14:22 Dose Route Admin Location Dispensed Lot Number Expiration Date NDC Sprinkler Repair Technician 0.5 mL IM Left Deltoid 0.5 mL [id number] 01/29/27 87696-931-32 SANOF I-PASTEUR VIS Given Date VIS Provided [...] 28wk ob Chief Complaint: 28 Week OB School Psychometrist Required: No Is patient in pain?: No [...] tablet 500 mg PO BID Check with [facility] 09/08/24 02/12/25 History doctor blood-glucose [...] 3-4 times per week duration: 15-30 minutes/day geoffrey/jew: None seatbelt use: always do you feel [...] of Preeclampsia, Feeding No and Yes Formula, [place] Education and Family Medical Leave or Disability [...] Diabetes mellitus type: type 2 Diabetes mellitus 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 truck driver insulin use: without 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 Service/Billing Questions: [phone] MyChart Assistance: [phone] or [phone] Financial Assistance: [phone] or [phone] As of August 07, 2019 my schedule [...] look into their status. Customer Service/Billing Questions: [phone] MyChart Assistance: [phone] or [phone] Financial Assistance: [phone] or [phone] As of August 07, 2019 my schedule will be changing: Wednesday 7 am to 5 pm Wednesday 7 am to 5 pm Wednesday closed 7 am to 5 pm Wednesday 7 am to 1 pm documented in this encounter History of Present Illness * Zita Randolph MD - 10/07/2020 9:11 AM EST Chief Complaint Patient presents with [facility] Anxiety FEEL LIKE BEEN GOING [...] and anxiety. ZITA RANDOLPH MD [facility] [address] [facility] [address] [facility] [address] Dept: [phone] documented in this encounter* Zita Randolph MD [...] No follow-ups on file. ZITA RANDOLPH MD [place] [id number] [facility] [address] Dept: [phone] documented in this encounter* Luz Elena Sherman [...] Physical Findings: Food Allergies/Intolerances: NFKA Cultural or Tenriism Dietary Needs: Denies Current Activity Level: Moderately [...] True [0] Estimated Nutritional Needs: Calorie Needs: 0549-2191 kcals/day [MSJ x 1.3AF -500/1000 kcals/day to [...] Physical Findings: Food Allergies/Intolerances: NFKA Cultural or Tenriism Dietary Needs: Denies Current Activity Level: Moderately [...] True [0] Estimated Nutritional Needs: Calorie Needs: 3661-4962 kcals/day [MSJ x 1.3AF -500/1000 kcals/day to [...] Color coded meal & snack planning handout, [employer] web site for quickmeal ideas, plate method/meal planning, Hypoglycemia handout, DSME/S 2020 class schedule [emailed to patient] Monitoring/Evaluation: SMBG, Weight, Food Record/Recall, Meal Planning, Physical Activity, Medication Management, Goal Assessment Luz Elena Sherman RDN, TIMMY Personal Office documented in this encounter* Branyd Bentley RN - 10/31/2020 3:10 PM EDT [facility] DIABETES SELF-MANAGEMENT EDUCATION AND SUPPORT PROGRAM [...] file Gets together: Once a week Attends yarsani service: Not on file Active member of club or organization: Not on file Attends meetings of clubs or organizations: Not on file Relationship status: Not on file Other Topics Concern Not on file Social History Narrative living with in own house and has custody of nieces. 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 History From: History obtained from chart review and the patient. Current/Pertinent Medications: Current Outpatient Medications Ordered in [employer] Medication Sig Dispense Refill blood sugar diagnostic [...] doing SMBG FBS. See results above. Sees RETIREMENT ASSISTANT for the 1st time within the next [...] sugar more frequently once she sees the RETIREMENT ASSISTANT. Discussed with Kvng Sherman RD who will be calling pt to discuss further nutritional goals with her. Discussed SMBG including times to test and tips given for more comfortable testing. Advised pt that her blood sugar goals will probably be more strict while she is and that her insulin schedule may change to get better control. Advised her to let her RETIREMENT ASSISTANT know that she is having DSME/MNT and to let this educator know what changes her RETIREMENT ASSISTANT wants for her. Gestational blood glucose record [...] the relationship of blood glucose levels to group home complications of diabetes. Select one: needs instruction [...] Intensity Diabetes Self-Management Support Plan ([facility]) This documentation has been sent to the referring healthcare provider. 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 (HCC) Diagnosis Type 2 diabetes mellitus without complication, unspecified whether group home insulin use (HCC) Reason for Referral Status Reason Specialty Diagnoses / Procedures Referred By Contact Referred To Contact Pending Review Diagnoses Type 2 diabetes mellitus without complication, unspecified whether group home insulin use (HCC) Zita Randolph MD [address] [place] [phone] Status Reason Specialty Diagnoses / Procedures Referred By Contact Referred To Contact Authorized Specialty Services Required/Patien t's Best Interest Nutrition Diagnoses Type 2 diabetes mellitus without complication, unspecified whether group home insulin use (HCC) Zita Randolph MD [address] [address] Nutrition Services [address] [place] [phone] Status Reason Specialty Diagnoses / Procedures Referre d By Contact Referred To Contact Closed Diagnoses Type 2 diabetes mellitus without complication, unspecified whether group home insulin use (HCC) Zita Randolph MD [address] [address] Specialty Diagnoses / Procedures Referred By Contac t Referred To Contact Endocrinology Diagnoses Type 2 diabetes mellitus without complication, 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 (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) Zita Randolph MD [address] [place] [phone] [facility] [address] [place] [phone] Referral ID Status Reason Start Date Expiration Date V isits Requested Visits Authorized [id number] Authorized 09/10/2022 09/10/2023 1 1 Specialty Diagnoses / Procedures Referred By Contac t Referred To Contact Nutrition Diagnoses Type 2 diabetes mellitus without complication, 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 (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) Zita Randolph MD [address] [place] [phone] [facility] [address] [place] [phone] Referral ID Status Reason Start Date Expiration Date V isits Requested Visits Authorized [id number] Authorized 09/10/2022 09/10/2023 1 1 Specialty Diagnoses / Procedures Referred By Contac t Referred To Contact Research Quality Assurance Analyst Diagnoses Type 2 diabetes mellitus without complication, 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 (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) Zita Randolph MD [address] [place], [place] [id number] Referral ID Status Reason Start Date Expiration Date Visits Requested Visits Authorized [id number] Authorized Specialty Services Required/Pat ient's Best Interest [...] EACH 15 [place] Yossi Alcazar V, MD [address] [place] [address] Referral ID Status Reason Start Date Expiration Date Visits Requested Visits Authorized [id number] Authorized PCP Requested Referral 06/09/2023 06/08/2024 1 [...] September 25, 2024 8:32am Supervision of high-risk [facility]2024 8:32am Hypertension September 25, 2024 8:32am [...] September 25, 2024 8:32am Supervision of high-risk [facility]2024 8:32am Hypertension September 25, 2024 [...] September 25, 2024 8:32am Supervision of high-risk [facility]2024 8:32am Hypertension September 25, 2024 8:32am [...] DATE CREATED AUTHOR AUTHOR'S ORGANIZ ATION 12/28/2021 [facility] DATE CREATED AUTHOR AUTHOR'S ORGANIZ ATION 2023 [facility] DATE CREATED AUTHOR AUTHOR'S ORGANIZ ATION 02/17/2025 [facility] DATE CREATED AUTHOR AUTHOR'S ORGANIZ ATION 03/04/2025 [facility] DATE CREATED AUTHOR AUTHOR'S ORGANIZ ATION 04/03/2025 [facility] Reason for Visit (unrecogniz ed section and content) Reason Comments Advice Only Reason Comments Establish Care Anxiety FEEL LIKE BEEN GOING ON FOR YEARS BUT HAS INCREASED FEELING LATELY Reason Comments Diabetes FOLLOW-UP Status Reason Specialty Diagnoses / Procedures Referred By Contact Referred To Contact Authorized Specialty Services Required/Patien t's Best Interest Nutrition Diagnoses Type 2 diabetes mellitus without complication, 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 (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) Zita Randolph MD [address] [place], [place] [phone] [facility] [address] [place] [phone] Reason Onset Date Comments Medication Refill 10/25/2020 Reason Onset Date Comments Medication Refill 10/31/2020 Reason Comments Diabetes Mellitus Status Reason Specialty Diagnoses / Procedures Referred By Contact Referred To Contact Authorized Specialty Services Required/Patien t's Best Interest Nutrition Diagnoses Type 2 diabetes mellitus without complication, unspecified whether group home insulin use (HCC) Zita Randolph MD [facility] [address] [address] Nutrition Services [address] [place] [phone] Reason Onset Date Comments Medication Refill 11/25/2020 [...] Never doneOphthalmology Exam Never doneUrine Microalbumin Never opuaG3S due on 03/25/2022 Reason Onset Date Comments [...] January 17, 2025 End: January 17, 2025 Atmospheric Drier Tender Relationship Specialty Start Date End Date Zita Randolph MD [address] [address] PCP - General Family Medicine 10/01/20 Zita Randolph MD [address] [place] [address] PCP - BARBARA [facility] Provider - [employer] 03/02/21 07/31/21 Atmospheric Drier Tender Relationship Specialty Start Date End Date Zita Randolph MD [address] [address] PCP - General Family Medicine 10/01/20 Zita Randolph MD [address] [address] PCP - BARBARA Attributed Provider - [employer] 03/02/21 08/01/50 Atmospheric Drier Tender Relationship Specialty Start Date End Date Zita Randolph MD [address] [address] PCP - General Family Medicine 10/01/20 Zita Randolph MD [address] [address] PCP - BARBARA Attributed Provider - [employer] 03/02/21 08/01/50 Atmospheric Drier Tender Relationship Specialty Start Date End Date Zita Randolph MD [address] [address] PCP - General Family Medicine 10/01/20 Zita Randolph MD [address] [address] PCP - BARBARA Attributed Provider - [employer] 03/02/21 08/01/50 Atmospheric Drier Tender Relationship Specialty Start Date End Date Zita Randolph MD [address] [address] PCP - General Family Medicine 10/01/20 Zita Randolph MD [address] [address] PCP - BARBARA Attributed Provider - [employer] 03/02/21 08/01/50 Atmospheric Drier Tender Relationship Specialty Start Date End Date Zita Randolph MD [address] [address] PCP - General Family Medicine 10/01/20 Zita Randolph MD [address] [address] PCP - BARBARA Attributed Provider - [employer] 03/02/21 08/01/50 Atmospheric Drier Tender Relationship Specialty Start Date End Date Zita Randolph MD [address] [place] [phone] PCP - General Family Medicine 10/01/20 Zita Randolph MD [facility] [place] [phone] PCP - BARBARA Attributed Provider - [employer] 03/02/21 08/01/50 Atmospheric Drier Tender Relationship Specialty Start Date End Date Zita Randolph MD [address] [place] [phone] PCP - General Family Medicine 10/01/20 Zita Randolph MD [address] [place] [address] PCP - BARBARA Attributed Provider - [employer] 03/02/21 08/01/[address] Dietitian Case Management 12/31/22 Atmospheric Drier Tender Relationship Specialty Start Date End Date Zita Randolph MD [facility] [address] [address] PCP - General Family Medicine 10/01/20 Zita Randolph MD [address] [place] [phone] PCP - BARBARA Attributed Provider - [employer] 03/02/21 08/01/50 Atmospheric Drier Tender Relationship Specialty Start Date End Date Zita Randolph MD [address] [place] [phone] PCP - General Family Medicine 10/01/20 Zita Randolph MD [facility] [place] [phone] PCP - BARBARA Attributed Provider - [employer] 03/02/21 08/01/50 Atmospheric Drier Tender Relationship Specialty Start Date End Date Zita Randolph MD [address] [place] [phone] PCP - General Family Medicine 10/01/20 Zita Randolph MD [facility] [address] [address] PCP - BARBARA Attributed Provider - [employer] 03/02/21 08/01/50 Atmospheric Drier Tender Relationship Specialty Start Date End Date Zita Randolph MD [address] [address] PCP - General Family Medicine 10/01/20 Zita Randolph MD [address] [address] PCP - BARBARA Attributed Provider - [employer] 03/02/21 08/01/50 Team Status: Active Member Role Status Dates No Primary Care Physician Primary Care Provider Active Start: September 08, 2024 Malissa Meneses RN Attending Provider Active St art: September 08, 2024 Atmospheric Drier Tender Relationship Specialty Start Date End Date Zita Randolph MD [address] [address] PCP - General Family Medicine 10/01/20 Atmospheric Drier Tender Relationship Specialty Start Date End Date Zita Randolph MD [address] [address] PCP - General Family Medicine 10/01/20 Team [...] 2025 End: February 12, 2025 Rebecca [place] ARTIFICIAL PLASTIC EYE MAKER, ARTIFICIAL PLASTIC EYE MAKER-C Attending Provider Active Start: February 12, 2025 End: February 12, 2025 Team Status: Active Member Role/Relationship Status Dates No Primary Care Physician Primary Care Provider Active Start: February 12, 2025 Rebecca [place] ARTIFICIAL PLASTIC EYE MAKER, ARTIFICIAL PLASTIC EYE MAKER-C Attending Provider Active Start: February 12, 2025 Rebecca Jackson ARTIFICIAL PLASTIC EYE MAKER, ARTIFICIAL PLASTIC EYE MAKER-C Referring Provider Active Start: February 12, 2025 Team Status: Inactive Member Role/Relationship Status Dates No Primary Care Physician Primary Care Provider Active Start: February 12, 2025 End: February 12, 2025 Rebecca [place] ARTIFICIAL PLASTIC EYE MAKER, ARTIFICIAL PLASTIC EYE MAKER-C Attending Provider Active Start: February 12, 2025 End: February 12, 2025 Rebecca Renetta ARTIFICIAL PLASTIC EYE MAKER, ARTIFICIAL PLASTIC EYE MAKER-C Referring Provider Active Start: February 12, 2025 [...] 2025 End: February 12, 2025 Rebecca [place] ARTIFICIAL PLASTIC EYE MAKER, ARTIFICIAL PLASTIC EYE MAKER-C Attending Provider Active Start: February 12, 2025 End: February 12, 2025 Team Status: Inactive Member Role/Relationship Status Dates No Primary Care Physician Primary Care Provider Active Start: February 12, 2025 End: February 12, 2025 Rebecca [place] ARTIFICIAL PLASTIC EYE MAKER, ARTIFICIAL PLASTIC EYE MAKER-C Attending Provider Active Start: February 12, 2025 End: February 12, 2025 Rebecca Jackson ARTIFICIAL PLASTIC EYE MAKER, ARTIFICIAL PLASTIC EYE MAKER-C Referring Provider Active Start: February 12, 2025 [...] February 26, 2025 End: February 26, 2025 Atmospheric Drier Tender Relationship Specialty Start Date End Date Zita Randolph MD [address] [place], [place] [phone] PCP - General Family Medicine 10/01/20 Atmospheric Drier Tender Relationship Specialty Start Date End Date Zita Randolph MD [address] [place] [address] PCP - General Family Medicine 10/01/20 Team [...] Referring Provider Active Start: March 17, 2025 Veroinca Winter CNM Other Provider Active Star t: [...] 2025 End: February 12, 2025 Rebecca [place] ARTIFICIAL PLASTIC EYE MAKER, ARTIFICIAL PLASTIC EYE MAKER-C Attending Provider Active Start: February 12, 2025 End: February 12, 2025 Team Status: Inactive Member Role/Relationship Status Dates No Primary Care Physician Primary Care Provider Active Start: February 12, 2025 End: February 12, 2025 Rebecca [place] ARTIFICIAL PLASTIC EYE MAKER, ARTIFICIAL PLASTIC EYE MAKER-C Attending Provider Active Start: February 12, 2025 End: February 12, 2025 Rebecca Jackson ARTIFICIAL PLASTIC EYE MAKER, ARTIFICIAL PLASTIC EYE MAKER-C Referring Provider Active Start: February 12, 2025 [...] 2025 End: March 13, 2025 Dr. Mae Revees MD Referring Provider Active Start: March 13, [...] this informatio n is protected by the [facility] Confidentiality of Alcohol and Drug Abuse Patient Records regulations: The Federal rules restrict any use of the information to criminally investigate or prosecute any alcohol or drug abuse patient.[facility]red HealthcareIn the event this information is protected by the Federal Confidentiality of Alcohol and Drug Abuse Patient Records regulations: The Federal rules restrict any use of the information to criminally investigate or prosecute any alcohol or drug abuse patient.[facility] HealthcareIn the event this information is protected by the Federal Confidentiality of Alcohol and Drug Abuse Patient Records regulations: The Federal rules restrict any use of the information to criminally investigate or prosecute any alcohol or drug abuse patient.[facility] Goals (unrecognized section and content) Goals may [...] BE BASED ON THE PRIMARY CLINICAL RECORDS. [facility]. provides no warranty or guarantee of the accuracy or completeness of information in this document.
--- NOTE | 2025-04-14 01:15 | OB.TRI.PN_ITS ---
Progress Notes Date of Service: 04/03/25 Progress Note: Patient presents for triage evaluation secondary to nst FHT: 130 Moderate variability reactive no decelerations category I tracing [place]: no regular Contractions Assessment and plan: 36 weeks diabetes Reactive NST, reassuring maternal and status patient discharged to home to follow-up []. See problem list details for additional plan information. Charges/Coding Procedures Urinary/Genital 52xxx-59xxx: 19359-95 non-stress test Interp
== END 2025-04-03 17:25 | disposition home or self-care (01) ==
LOC: WPOUT 16:40 → WP 16:40
PROVIDERS: PCP Family Medicine; Referring Provider Obstetrics & Gynecology; Visit Provider Obstetrics & Gynecology
DX: O26.893 Other specified pregnancy related conditions, third trimester (principal); Z3A.36 36 weeks gestation of pregnancy
CPT/HCPCS: 59025; 59050; 99221; G0378

== ENCOUNTER → 2025-04-03 | Outpatient (CLI) | payer BC, SELFPAY ==
--- NOTE | 2025-04-03 15:44 | US_ITS ---
PROCEDURE: OB LIMITED WITH BIOMETRICS 04/03/2025 REASON FOR EXAM: GROWTH TECHNIQUE: Procedure Code: [id number] Modality: US Procedure: OB LIMITED WITH BIOMETRICS COMPARISON: March 30, 2025. FINDINGS LMP: July 25, 2024 Number: 1 Position: Vertex Placental Position: Posterior and not low-lying. Placental Abnormalities: No placenta previa. DIMENSIONS: Biparietal Diameter: 8.8 cm: 35 weeks and 4 days: 46 percentile/ Head Circumference: 32.1 cm: 36 weeks and 2 days: 26 percentile/ Abdominal Circumference: 31.9 cm: 35 weeks and 6 days: 54 percentile/ Femur Length: 6.6 cm: 34 weeks and 0 days: 59 percentile/ ESTIMATED WEIGHT: 2662 g plus/-309 9 g ESTIMATED WEIGHT PERCENTILE (24+ weeks): 34 ESTIMATED GESTATIONAL AGE: Baseline: 36 weeks and 0 days By Ultrasound: 36 weeks and 1 day ESTIMATED DATE OF DELIVERY: Baseline: May 01, 2025 By Ultrasound: April 30, 2025 BIOPHYSICAL ASSESSMENT: Amniotic Fluid Volume: 4.6 cm Amniotic Fluid Index: 10.3 cm (8-24 cm normal range) Cardiac Motion: 140 beats per minute (average) Trunk and Limb Motion: Present. US/OB Limited With Biometrics IMPRESSION: Single live intrauterine gestation with a mean gestational age of 36 weeks and 1 day. The measurements obtained today fall with the normal expected range. [id number]
--- NOTE | 2025-04-03 15:44 | US_ITS ---
PROCEDURE: OB BIOPHYSICAL PROF W/O NST 04/03/2025 REASON FOR EXAM: WELL BEING TECHNIQUE: Procedure Code: USBIOWO Modality: US Procedure: OB BIOPHYSICAL PROF W/O NST COMPARISON: 03/27/2025. FINDINGS breathing movements: 0/2 body movements: 2/2 tone: 2/2 Amniotic fluid volume: 2/2 Total: /8. cardiac activity is detected at 155 beats per minute. The fetus is in a cephalic presentation at the time of imaging. The placenta is posteriorly located. The amniotic fluid index is 10.3 cm, within normal limits. The largest vertical pocket of amniotic fluid measures 4.0 cm. US/OB Biophysical Prof W/O NST IMPRESSION: Biophysical profile: 01/07. Reading [id number]
--- OUTSIDE RECORDS SUMMARY | 2025-04-03 23:26 | XMS RPT_ITS | CCD ---
Author Organization [facility] CliniSymt Care Team Providers Care Funeral Assistant Name Role Phone AGUILAR, FRANCHESCA Unavailable Unavailable AGUILAR, FRANCHESCA Unavailable Unavailable GAUILAR, FRANCHESCA Unavailable Unavailable AGUILAR, FRANCHESCA Unavailable Unavailable [...] Care Pro vider Zita Randolph MD Unavailable ZITA RANDOLPH Admitting Terra [...] Dr. Magalys Stoner DO Attending Provider Dr. aMgalys Stoner DO Referring Provider Dr. Theodore Dunne MD Attending Provider Tyrese SNYDER, Tere Attending Provider [phone] Tyrese CNM, Tere Referring Provider [phone] Care Physician, No Primary Primary Care Provider Unavailable Dr. Mae Reeves MD Attending Provider Care Physician, No Primary Primary Care Provider Unavailable Care Physician, No Primary Referring Provider Un available Dr. Magalys Stoner DO Attending Provider Dr. Theodore Dunne MD Attending Provider Renetta CORRUGATOR OPERATOR-C, Rebecca Attending Provider [phone] [place] CORRUGATOR OPERATOR-C, Rebecca Referring Provider [phone] NO PRIMARY CARE, Referring Unavailable NO PRIMARY CARE, Primary Care Unavailable CHRISTIANO HIGGINBOTHAM Attending Unavailable MAGALYS RAPHAEL Referring Unavailab NATASHA Lindsey Attending Unavailable NO PRIMARY CAREMD Primary Care Unavailable MAGALYS RAPHAEL Referring Unavailab JIGNESH Boggs Attending Unavailable NO PRIMARY CARE, Primary Care Unavailable SAEID PETER Attending Unavailable ZITA RANDOLPH MOUNIR Primary Care Terra vailable MAGALYS RAPHAEL Referring Unavailab le Care Physician, No Primary Primary Care Provider Unavailable Care Physician, No Primary Referring Provider Un available Dr. Magalys Stoner DO Attending Provider ZITA RANDOLPH Attending Terra vailable ZITA RANDOLPH Primary Care Terra vailable AMADOR LUNA Attending Unavailable ZITA RANDOLPH Primary Care Terra vailable Dr. Mae Reeves MD Referring Provider Winter CNM, Veronica Attending Provider Winter CNM, Veronica Referring Provider Winter CNM, Veronica Other Provider Care Physician, No Primary Primary Care Provider Unavailable Care Physician, No Primary Referring Provider Un available Tyrese SNYDER, Tere Attending Provider AGUSTÍN RAY, ZITA Primary Care Provider Winter CNM, Veronica Attending Provider Winter CNM, Veronica Referring Provider Care Physician, No Primary Primary Care Unava ilable Tere Xiong Attending Unavailable Tere Xiong Referring Unavailable MarcanthonyMae Attending Unavailable AGUSTÍN, ZITA Primary Care Unavailable MarcanthMae donaldson Referring Unavailable Marcanthanika, Mae Attending Unavailable Care Physician, No Primary Primary Care Unava ilable Leandro, Mae Referring Unavailable Avtaranthony, Mae Referring Unavailable AGUSTÍN, ZITA Primary Care Unavailable Mae Reeves Attending Unavailable Care Physician, No Primary Primary Care Unava ilable Magalys Stoner Attending Unavailabl e Steven VelMagalys silva Referring Unavailabl e Marcanthony, Mae Referring Unavailable AGUSTÍN, ZITA Primary Care Unavailable Marcanthony, Mae Attending Unavailable Marcanthony, Mae Referring Unavailable AGUSTÍN, ZITA Primary Care Unavailable Marcanthony, Mae Attending Unavailable MarcanthonyMae Referring Unavailable AGUSTÍN, ZITA Primary Care Unavailable AvtaranthMae donaldson Attending Unavailable Care Physician, No Primary Referring Unava ilable Care Physician, No Primary Primary Care Unava ilable Tere Xiong Attending Unavailable AGUSTÍN, ZITA Primary Care Unavailable Care Physician, No Primary Referring Unava ilable Mae Reeves Attending Unavailable Care Physician, No Primary Primary Care Unava ilable Care Physician, No Primary Referring Unava ilable Tere Xiong Attending Unavailable Care Physician, No Primary Referring Unava ilable Care Physician, No Primary Primary Care Unava ilable Magalys Stoner Attending Unavailabl e Care Physician, No Primary Primary Care Unava ilable Care Physician, No Primary Referring Unava ilable Magalys Stoner Attending Unavailabl e Care Physician, No Primary Referring Unava ilable Care Physician, No Primary Primary Care Unava ilable Tere Xiong Attending Unavailable AGUSTÍN, ZITA Primary Care Unavailable Marcanthony, Mae Attending Unavailable Marcanthony, Mae Referring Unavailable Marcanthony, Mae Referring Unavailable AGUSTÍN, ZITA Primary Care Unavailable Marcanthony, Mae Attending Unavailable Marcanthony, Mae Attending Unavailable Care Physician, No Primary Primary Care Unava ilable Marcanthony, Mae Referring Unavailable Marcanthony, Mae Referring Unavailable AGUSTÍN, ZITA Primary Care Unavailable Marcanthony, Mae Attending Unavailable Care Physician, No Primary Referring Unava ilable Care Physician, No Primary Primary Care Unava ilable Theodore Dunne Attending Unavailable Care Physician, No Primary Primary Care Unava ilable Mariam Wintersay Consulting Unavailable Winter, Veronica Attending Unavailable Winter, Veronica Referring Unavailable Care Physician, No Primary Primary Care Unava ilable Winter, Veronica Attending Unavailable Winter, Veronica Referring Unavailable Care Physician, No Primary Primary Care Unava ilable Malissa Meneses Attending Unavailable Care Physician, No Primary Primary Care Unava ilable Winter, Veronica Attending Unavailable Winter, Veronica Referring Unavailable AGUSTÍN, ZITA Primary Care Unavailable Care Physician, No Primary Referring Unava ilable Mae Reeves Attending Unavailable Care Physician, No Primary Primary Care Unava ilable [place] CORRUGATOR OPERATOR, Rebecca Attending Unavailable Renetta CORRUGATOR OPERATOR, Rebecca Referring Unavailable Care Physician, No Primary Referring Unava ilable Care Physician, No Primary Primary Care Unava ilable Theodore Dunne Attending Unavailable Care Physician, No Primary Referring Unava ilable Care Physician, No Primary Primary Care Unava ilable Magalys Stoner Attending Unavailabl e Care Physician, No Primary Referring Unava ilable Care Physician, No Primary Primary Care Unava ilable Tere Xiong Attending Unavailable Care Physician, No Primary Referring Unava ilable Care Physician, No Primary Primary Care Unava ilable Renetta CORRUGATOR OPERATOR, Rebecca Attending Unavailable Care Physician, No Primary Referring Unava ilable Mae Reeves Attending Unavailable Care Physician, No [...] 2 diabetes mellitus without complication, unspecified whether intermediate teacher insulin use (HCC) Once daily every morning before breakfast. . 1 each 10/08/2020 Active Start: 10-08-2020 blood-glucose meter Misc Indications: Type 2 diabetes mellitus without complication, unspecified whether mcfp insulin use (HCC) Once daily every morning before breakfast. . 1 each 0 10/08/2020 Active Blood-Glucose Sensor (Freest yle Vamsi 3 Plus Sensor) device (15 sources) Start: 09-25-2024 Blood-Glucose Sensor (Freestyle Vamsi 3 Plus Sensor) device Active 0 .Route 6 September 25, 2024 1:00am As directed Start: [...] 2 diabetes mellitus without complication, unspecified whether mcfp insulin use (HCC) 1 kit by Miscellaneous route every 14 (fourteen) days Use as directed to apply new sensor . 2 kit 2 09/10/2022 Active 3 ml insulin glargine 100 unt/ml pen injector (20 sources) Insulin Analog Start: 03-16-2025 Insulin Glargi ne (Lantus Solostar U-100 Insulin) 100 unit/mL (3 mL) insulin pen Active 55 U SC TWICE A DAY March 16, 2025 12:00am DM Start: 03-16-2025 Insulin Glargi ne (Lantus Solostar [...] pen Discontinued 90 U SC daily 9 November 13, 2024 12:00am November 13, 2024 [...] pen Discontinued 40 U SC daily 36 1 September 28, 2024 1:00am October 23, 2024 [...] U SC THREE TIMES A DAY 30 November 20, 2024 4:41pm March 16, 2025 [...] U SC THREE TIMES A DAY 27 May 15, 2021 10:38am June 15, 2021 8:35pm Start: 05-15-2021 End: 05-15-2021 Insulin Lispro (Humalog Kwik pen Insulin) 100 unit/mL insulin pen Discontinued 20 U SC THREE TIMES A DAY 18 May 15, 2021 7:47am May 15, 2021 10:39am Start: 11-14-2020 End: 05-15-2021 Insulin Lispro (Humalog Kwik pen Insulin) 100 unit/mL insulin pen Discontinued 15 U SC THREE TIMES A DAY 15 November 14, 2020 12:00am May 15, 2021 7:47am labetalol hydrochloride 200 mg oral tablet (20 sources) beta-Adrenergic Medardo Start: 03-16-2025 take 1 tablet by mouth twice daily Labetalol 200 mg tablet Active 200 mg PO TWICE A DAY March 16, 2025 12:00am htn Start: 12-01-2024 take 1 tablet by robinson twice daily labetaloL (NORMODYNE) 200 MG tablet [...] 2 diabetes mellitus without complication, unspecified whether mcfp insulin use (HCC) Take 2 (two) tablets [...] on above: Take 1,000 mg by robinson th. Multivit 39-Esli-Mzcgki 1-Dha (Pnv-Dha) 27 mg iron-1 mg -300 mg capsule (15 sources) Start: 11-05-2020 Multivit 51-Euyc-Uvlrzv 1-Dha (Pnv-Dha) 27 mg iron-1 mg -300 [...] Sig (Original) Blood Pressure Test Kit-Large kit (15 sources) Start: 12-09-2020 End: 08-07-2021 Blood Pressure Test Kit-Large kit Discontinued 0 .ROUTE .MEDSUPPLY 1 December 09, 2020 12:00am August 07, 2021 3:28pm As directed Start: 12-09-2020 End: 08-07-2021 Blood Pressure Test Kit-Larg e kit Discontinued 0 .ROUTE .MEDSUPPLY December 09, 2020 12:00am August 07, 2021 3:28pm As directed Start: 12-09-2020 End: 08-07-2021 Blood Pressure Test Kit-Larg e kit Discontinued 0 .ROUTE .MEDSUPPLY December 08, 2020 11:00pm August 07, 2021 2:28pm As directed Blood-Glucose Meter misc (15 sources) Start: 11-14-2020 End: 08-07-2021 Blood-Glucose Meter misc Dis continued 0 NMA .ROUTE .MEDSUPPLY 1 November 14, 2020 12:00am August 07, 2021 [...] tablet Discontinued 1 {tbl} PO DAILY 84 3 September 24, 2022 3:38pm September 07, 2023 [...] 2 diabetes mellitus without complication, unspecified whether intermediate teacher insulin use (HCC) Inject 0.5 mL (0.75 mg total) under the skin every 7 days . 2 mL 0 05/21/2022 09/10/2022 Discontinued Start: 12-24-2021 End: 03-22-2022 dulaglutide 0.75 mg/0.5 mL P en Indications: Type 2 diabetes mellitus without complication, unspecified whether mcfp insulin use (HCC) Inject 0.5 mL (0.75 [...] 2 diabetes mellitus without complication, unspecified whether mcfp insulin use (HCC) Inject 25 (twenty five) Units under the skin at bedtime . 22.5 mL 12/22/2022 03/02/2025 Discontinued Start: 09-10-2022 End: 12-09-2022 insulin degludec (Tresiba Fl exTouch U-100) 100 unit/mL (3 mL) InPn Indications: Type 2 diabetes mellitus without complication, unspecified whether mcfp insulin use (HCC) Inject 20 (twenty) Units [...] 2 diabetes mellitus without complication, unspecified whether intermediate teacher insulin use (HCC) Inject 12 (twelve) Units [...] 2 diabetes mellitus without complication, unspecified whether mcfp insulin use (HCC) Inject 0.5 (one-half) mg under the skin every 7 days . 1.5 mL 2 12/22/2022 03/22/2023 Active Start: 12-23-2021 End: 01-22-2022 semaglutide (Ozempic) 0.25 m g or 0.5 mg(2 mg/1.5 mL) Pen Indications: Type 2 diabetes mellitus without complication, unspecified whether intermediate teacher insulin use (HCC) Inject 0.5 (one-half) mg [...] 2 diabetes mellitus without complication, unspecified whether intermediate teacher insulin use (HCC) Inject 0.5 mL under the skin every 7 days . 2 mL 1 01/10/2024 03/02/2025 Discontinued Start: 01-10-2024 tirzepatide (M OUNJARO) 2.5 mg/0.5 mL Pen Indications: Type 2 diabetes mellitus without complication, unspecified whether mcfp insulin use (HCC) Inject 0.5 mL under [...] Onset: 03-16-2025 Episodic Diabetes mellitus with complications (19 sources) Hyperglycemia due to diabetes mellitus; Translations: [...] 39.2; HgBA1C ordered w/NOB Other complications of (2 sources) Obesity complicating , second trimester; Translations: [Obesity [...] (Has custody of 14yr old twin nieces, [place] & [place]), : Slade PRR GIANFRANCO: Boy! Ernie Spouse: Slade (has custody of 11yr old twin nieces [place] and [place]) PRR , GIANFRANCO , girl [place] PC: Ernie (Has custody of 14yr old twin nieces, [place] & [place]), : Slade Other complications of [...] Chronic Other nutritional; endocrine; and metabolic disorders (15 sources) Obesity; Translations: [Obesity, unspecified] 09-08-2024 Chronic [...] 21. Declines genetic testing. Residual codes; unclassified (15 sources) History of vaccination; Translations: [Personal history [...] gestation of ] Onset: 11-20-2024 Episodic Unclassified (8 sources) Variable heart decelerations 03-17-2025 Comment on above: BPP 03/09, reactive NS T in WP Results Test Name Value Interpretation Reference Range Facility OB Biophysical Prof W/O NSTo n 04-03-2025 OB Biophysical Prof W/O NST [facility] Imaging Services [address] [place], [place] [address] OB Biophysical Prof W/O NST MR#: [id number] Acct: [id number] Name: TASIA ALMAGUER Rep #: [id number] : 1990 F 34 From: Raghav Hdez MD PCP: ZITA RANDOLPH MD Status: REG CLI Study: OB Biophysical Prof W/O NST Date of Exam: 09/26 Exam# [id number] Ordering Dr: Mae Reeves PROCEDURE: OB BIOPHYSICAL PROF W/O NST 04/03/2025 REASON FOR EXAM: WELL BEING TECHNIQUE: Procedure Code: USBIOWO Modality: US Procedure: OB BIOPHYSICAL PROF W/O NST COMPARISON: 03/27/2025. FINDINGS breathing movements: 0/2 body movements: 2/2 tone: 2/2 Amniotic fluid volume: 2/2 Total: 6/8. cardiac activity is detected at 155 beats per minute. The fetus is in a cephalic presentation at the time of imaging. The placenta is posteriorly located. The amniotic fluid index is 10.3 cm, within normal limits. The largest vertical pocket of amniotic fluid measures 4.0 cm. US/OB Biophysical Prof W/O NST IMPRESSION: Biophysical profile: 6/8. Reading [id number] CC: ZITA RANDOLPH MD; Dr. Mae Reeves MD Parcel Post Clerk: Signed Normal [facility] OB Biophysical Prof W/O NSTo n 03-30-2025 OB Biophysical Prof W/O NST [facility] Imaging Services [address] [place], [place] [address] OB Biophysical Prof W/O NST MR#: [id number] Acct: [id number] Name: TASIA ALMAGUER Rep #: [id number] : 1990 F 34 From: Srinivas mayes MD PCP: ZITA RANDOLPH MD Status: REG CLI Study: OB Biophysical Prof W/O NST Date of Exam: 03/03 04/26 Exam# [id number] Ordering Dr: Mae Reeves PROCEDURE: OB BIOPHYSICAL PROF W/O NST 03/30/2025 REASON FOR EXAM: WELL BEING TECHNIQUE: Procedure Code: USBIOWO Modality: US Procedure: OB BIOPHYSICAL PROF W/O NST COMPARISON: March 27, 2025. FINDINGS LMP: July 25, 2025. Number: 1 Position: Vertex Placental Position: Posterior and not low-lying Placental Abnormalities: No evidence of previa. ESTIMATED GESTATIONAL AGE: Baseline: 35 weeks and 3 days ESTIMATED DATE OF DELIVERY: Baseline: May 01, 2025 BIOPHYSICAL ASSESSMENT: Amniotic Fluid Volume: 5.6 cm Amniotic Fluid Index: 17 cm (8-24 cm normal range) Cardiac Motion: 138 beats per minute (average) Trunk and Limb Motion: Present. Biophysical profile: Breathing movements: 2 Gross body movements: 2 tone: 2 Amniotic fluid volume: 2 Total score: 8/8 US/OB Biophysical Prof W/O NST IMPRESSION: Normal biophysical profile. Reading Location: [place] [address] CC: ZITA RANDOLPH MD; Dr. Mae Reeves MD Parcel Post Clerk: Signed Normal [facility] OB Biophysical Prof W/O NSTo n 03-27-2025 OB Biophysical Prof W/O NST [facility] Imaging Services [address] [place] [address] OB Biophysical Prof W/O NST MR#: [id number] Acct: [id number] Name: TASIA ALMAGUER Rep #: [id number] : 1990 F 34 From: Srinivas mayes MD PCP: ZITA RANDOLPH MD Status: REG CLI Study: OB Biophysical Prof W/O NST Date of Exam: 03/03 01/24 Exam# [id number] Ordering Dr: Mae Reeves PROCEDURE: OB BIOPHYSICAL PROF W/O NST 03/27/2025 REASON FOR EXAM: WELL BEING TECHNIQUE: OB BIOPHYSICAL PROF W/O NST COMPARISON: Prior study dated March 20, 2025. FINDINGS Number: 1 Position: Breech Placental Position: Posterior and not low-lying. Placental Abnormalities: No evidence of previa. ESTIMATED GESTATIONAL AGE: Baseline: 35 weeks and 0 days ESTIMATED DATE OF DELIVERY: Baseline: May 01, 2025. BIOPHYSICAL ASSESSMENT: Amniotic Fluid Volume: 4.7 cm Amniotic Fluid Index: 13.2 cm (8-24 cm normal range) Cardiac Motion: 143 beats per minute (average) Trunk and Limb Motion: Present. MATERNAL ANATOMY: Adnexa: Neither maternal ovary is successfully identified. Biophysical profile: Breathing movements: 2 Gross body movements: 2 tone: 2 Amniotic fluid volume: 2 Total score: 8/8 US/OB Biophysical Prof W/O NST IMPRESSION: Normal biophysical profile score of 8/8 Reading Location: [facility] CC: ZITA RANDOLPH MD; Dr. Mae Reeves MD Parcel Post Clerk: Signed Normal [facility] Laboratory - Chemistry and C hemistry - challengeOrdered By: Mae Reeves on 03-23-2025 Glucose Ql (U) Negative [facility] Laboratory - UrinalysisOrder ed By: aMe Reeves on 03-23-2025 Protein Ql (U) Trace [facility] Sausage Stringer Office Visit Reporton 03-23-2025 Sausage Stringer Office Visit Report [facility] [address], [address] [place] [address] OFFICE VISIT Date of Service: 03/23/25 MR#: [id number] Acct: [id number] Name: TASIA ALMAGUER Rep #: [id number] : 1990 Provider: Dr. Mae bailey MD Age/Sex: 34/F Location[facility] Status: Signed Intake Vital Signs 01/17/25 15:47 03/16/25 14:27 03/23/25 10:41 Height 5 ft 7 in 5 ft 7 in 5 ft 7 in Weight: 290 lb 6 oz BMI 45.4 BP 128/83 H Intake Visit Reasons: 35 WK OB/NST Shipping And Receiving Clerk Required: No Is patient in pain?: No [...] 3-4 times per week duration: 15-30 minutes/day geoffrey/mandaeism: None seatbelt use: always do you feel [...] - full term 8lbs 3oz Male epidural [facility] S Joy June Delivery Date: 06/17/21 Last [...] -???-???-???-???-?? ?-???-???-???-???-? (more content not included)... Normal [facility] OB Biophysical Prof W/O NSTo n 03-20-2025 OB Biophysical Prof W/O NST [facility] Imaging Services [address] [place] [id number] OB Biophysical Prof W/O NST MR#: [id number] Acct: [id number] Name: TASIA ALMAGUER Rep #: [id number] : 1990 F 34 From: Srinivas mayes MD PCP: ZITA RANDOLPH MD Status: REG CLI Study: OB Biophysical Prof W/O NST Date of Exam: 03/02 04/26 Exam# [id number] Ordering Dr: Mae Reeves PROCEDURE: OB BIOPHYSICAL [...] with a score of 8/8 Reading Location: [id number] CC: ZITA RANDOLPH MD; Dr. Mae Reeves MD Parcel Post Clerk: Signed Normal [facility] OB Triage Physician Noteon 0 03-17-2025 OB Triage Physician Note [facility] Medical Records Department [address] [place] [address] OB Triage Physician Note 03/17/25 1058 MR#: [id number] Acct: [id number] Name: TASIA ALMAGUER Rep #: [id number] : 1990 34 From: Veronica Winter CNM PCP: Care Physician,No Primary Status:DEP CLI Y Location: [facility] HPI - General HPI Narrative TASIA ALMAGUER, is a 34 F who presents at 33.3 for variable decelerations in the office. presented to for prolonged monitoring and BPP. Maternal Data Information GIANFRANCO Calculator Estimated Delivery Date Method Current WG Current Estimate 05/01/25 LMP (Certain) 33w 4d Other Estimates 05/03/25 Ultrasound #1 33w 2d PFSH PFSH Medical History 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 [...] 3-4 times per week duration: 15-30 minutes/day geoffrey/mandaeism: None seatbelt use: always do you feel safe at home: Yes additional social history: : Slade Andriy Madden History 2 Elective abortions Hx Para 1 Spontaneous abortions 0 Hx # Term Pregnancies Ectopic pregnancies Hx # Pregnancies Multiple births # of living children 1 Past Pregnancies Del. Date Name GA/Weeks Outcome Route Bth Weight [facility]ant [facility]21 Ernie 39 live - full term 8lbs 3oz Male epidural [facility] S Joy June Delivery Date: 06/17/21 Last [...] -???-???-???-???-?? ?-???-?? (more content not included)... Normal [facility] OB Triage Progress Noteon OB Triage Progress Note [facility] Medical Records Department [address] [place] [address] OB Triage Progress Note 03/17/25 1058 MR#: [id number] Acct: [id number] Name: TASIA ALMAGUER Rep #: [id number] : 1990 34 From: Veronica Winter CNM PCP: Care Physician,No Primary Status:JOSÉ MIGUEL Castillo DOS: Location: [facility] 03/17/25 1213 Date Veronica Winter CNM Cosigner Signature (if applicable): Date __ CC: CLAUDIO Winter; No Primary Care Physician Signed Normal [facility] Laboratory - Chemistry and C hemistry - challengeOrdered By: Tere Xiong on 03-16-2025 Glucose Ql (U) Negative [facility] Laboratory - UrinalysisOrder ed By: Tere Xiong on 03-16-2025 Protein Ql (U) Negative [facility] OB Biophysical Prof W/O NSTo n 03-16-2025 OB Biophysical Prof W/O NST [facility] Imaging Services [address] [place], [place] [id number] OB Biophysical Prof W/O NST MR#: [id number] Acct: [id number] Name: TASIA ALMAGUER Rep #: [id number] : 1990 F 34 From: Eleno Mejia DO PCP: Care Physician,No Primary Status: DEP CLI Study: OB Biophysical Prof W/O NST Date of Exam: 03/02 12/24 Exam# [id number] Ordering Dr: Tere Xiong CNM PROCEDURE: OB [...] Total biophysical profile score: 8/8 Reading [facility] CC: CLAUDIO Xiong; No Primary Care Physician Parcel Post Clerk: Signed Normal [facility] Sausage Stringer Office Visit Reporton 03-16-2025 Sausage Stringer Office Visit Report [facility] [address], [address] [place] [address] OFFICE VISIT Date of Service: 03/16/25 MR#: [id number] Acct: [id number] Name: TASIA ALMAGUER Rep #: [id number] : 1990 Provider: CLAUDIO Mckinney ams Age/Sex: 34/F Location: [facility] Status: Signed Intake Vital Signs 01/17/25 15:47 03/09/25 13:43 03/16/25 13:31 Height 5 ft 7 in 5 ft 7 in 5 ft 7 in Weight: 288 lb 2 oz 290 lb 4 oz BMI 45.1 45.4 BP 133/86 H 120/79 Intake Visit Reasons: 34 WK NST ONLY Shipping And Receiving Clerk Required: No Is patient in pain?: No [...] current occupational status: employed current occupation: [employer] current occupational exposures/hazards: No pets and animals: [...] 3-4 times per week duration: 15-30 minutes/day geoffrey/mandaeism: None seatbelt use: always do you feel [...] - full term 8lbs 3oz Male epidural [facility] S Joy June Delivery Date: 06/17/21 Last [...] Weight: Not Rec (more content not included)... Normal [facility] OB Biophysical Prof W/O NSTo n 03-13-2025 OB Biophysical Prof W/O NST [facility] Imaging Services [address] [place] [address] OB Biophysical Prof W/O NST MR#: [id number] Acct: [id number] Name: TASIA ALMAGUER Rep #: [id number] : 1990 F 34 From: Srinivas mayes MD PCP: Care Physician,No Primary Status: REG CLI Study: OB Biophysical Prof W/O NST Date of Exam: 03/02 09/26 Exam# [id number] Ordering Dr: Mae Reeves PROCEDURE: OB BIOPHYSICAL [...] NST IMPRESSION: Normal biophysical profile. Reading Location: [id number] CC: Dr. Mae Reeves MD; No Primary Care Physician Parcel Post Clerk: Signed Normal [facility] Laboratory - Chemistry and C hemistry - challengeOrdered By: Tere Xiong on 03-09-2025 Glucose Ql (U) Negative [facility] Laboratory - UrinalysisOrder ed By: Tere Xiong on 03-09-2025 Protein Ql (U) Negative [facility] S[employer]age Stringer Office Visit Reporton 03-09-2025 Sausage Stringer Office Visit Report [facility], [address] [place] [address] OFFICE VISIT Date of Service: 03/09/25 MR#: [id number] Acct: [id number] Name: TASIA ALMAGUER Rep #: [id number] : 1990 Provider: CLAUDIO Mckinney ams Age/Sex: 34/F Location: [facility] Status: Signed Intake Vital Signs 01/17/25 15:47 02/26/25 13:25 03/09/25 13:43 Height 5 ft 7 in 5 ft 7 in 5 ft 7 in Weight: 286 lb 8 oz 288 lb 2 oz BMI 44.9 45.1 BP 133/79 H 133/86 H Intake Visit Reasons: 33 WK OB/NST Chief Complaint: 32wk ob/nst Shipping And Receiving Clerk Required: No Is patient in pain?: No [...] 3-4 times per week duration: 15-30 minutes/day geoffrey/mandaeism: None seatbelt use: always do you feel [...] - full term 8lbs 3oz Male epidural [facility] Carmelo June Delivery Date: 06/17/21 Last Updated [...] -???-???-???-???-?? ?-???-???-???- (more content not included)... Normal [facility] OB Biophysical Prof W/O NSTo n 03-06-2025 OB Biophysical Prof W/O NST [facility] Imaging Services [address] [place] [address] OB Biophysical Prof W/O NST MR#: [id number] Acct: [id number] Name: TASIA ALMAGUER Rep #: [id number] : 1990 F 34 From: Srinivas mayes MD PCP: Care Physician,No Primary Status: REG CLI Study: OB Biophysical Prof W/O NST Date of Exam: 12/24 Exam# [id number] Ordering Dr: Mae Reeves PROCEDURE: OB BIOPHYSICAL [...] NST IMPRESSION: Normal biophysical profile. Reading Location: [facility] CC: Dr. Mae Reeves MD; No Primary Care Physician Parcel Post Clerk: Signed Normal [facility] OB Limited With Biometricson 03-06-2025 OB Limited With Biometrics [facility] Imaging Services [address] [place] [address] OB Limited With Biometrics MR#: [id number] Acct: [id number] Name: TASIA ALMAGUER Rep #: [id number] : 1990 F 34 From: Srinivas mayes MD PCP: Care Physician,No Primary Status: REG CLI Study: OB Limited With Biometrics Date of Exam: 03/06 Exam# [id number] Ordering Dr: Mae Reeves PROCEDURE: OB LIMITED [...] 31 weeks and 4 days. Reading Location: [id number] CC: Dr. Mae Reeves MD; No Primary Care Physician Parcel Post Clerk: Signed Normal [facility] Laboratory - Chemistry and C hemistry - challengeOrdered By: Tere Xiong on 02-26-2025 Glucose Ql (U) Negative [facility] Laboratory - UrinalysisOrder ed By: Tere Xiong on 02-26-2025 Protein Ql (U) Negative [facility] Sausage Stringer Office Visit Reporton 02-26-2025 Sausage Stringer Office Visit Report [facility]'s [address], [address] [place] [address] OFFICE VISIT Date of Service: 02/26/25 MR#: [id number] Acct: [id number] Name: TASIA ALMAGUER Rep #: [id number] : 1990 Provider: CLAUDIO Mckinney ams Age/Sex: 34/F Location: [facility] Status: Signed Intake Vital Signs 12/18/24 15:44 02/12/25 13:48 02/26/25 13:25 Height 5 ft 7 in 5 ft 7 in 5 ft 7 in Weight: 286 lb 8 oz BMI 44.9 BP 133/79 H Intake Visit Reasons: 30 wk ob Chief Complaint: 30wk OB Shipping And Receiving Clerk Required: No Is patient in pain?: No [...] 3-4 times per week duration: 15-30 minutes/day geoffrey/mandaeism: None seatbelt use: always do you feel [...] - full term 8lbs 3oz Male epidural [facility] S Joy June Delivery Date: 06/17/21 Last [...] BP Urine (more content not included)... Normal [facility] Absolute lymphocyte countOrd ered By: Mae Reeves on 02-12-2025 Lymphocytes Auto (Unsp spec) [#/Vol] 2.60 10*3/uL 0.83-4.51 [facility] Absolute neutrophil countOrd ered By: Mae Reeves on 02-12-2025 Neutrophils (Bld) [#/Vol] 7.4 10*3/uL 2.0-7.7 [facility] Automated blood erythrocyte countOrdered By: Mae Novanetta on 02-12-2025 RBC (Bld) [#/Vol] 3.75 10*6/uL Low 4.2-5.[address] [facility] Comment on above: Performed By: #### L 509.8002, L100.0100, L3890.6006 ####[facility] [address] [place], [place], [id number] Automated blood hematocrit ( percentage)Ordered By: Mae Novanetta on 02-12-2025 Hematocrit (Bld) [Volume fraction] 33.8 % Low 37-47 [facility] Comment on above: Performed By: #### L 509.8002, L100.0100, L3890.6006 ####[facility] [address] [place], [place], [id number] Automated lymphocyte count a s percentage of total leukocytesOrdered By: Mae Novanetta on 02-12-2025 Lymphocytes/100 WBC Auto (Unsp spec) 23.8 % 19-41 [facility] Basophil percentageOrdered B y: Mae Novanetta on 02-12-2025 Basophils/100 WBC (Bld) 0.3 % Normal 0-1 [facility] Comment on above: Performed By: #### L 509.8002, L100.0100, L3890.6006 ####[facility] [address] [place], [place], [id number] CBC W/Diff, Automatedon 07- Absolute Lymph 2.60 X10 3/uL Normal 0.83-4.51 [facility] Comment on above: Performed By: #### L 509.8002, L100.0100, L3890.6006 ####[facility] [address] [place], [address] Absolute Neut 7.4 X10 3/uL Normal 2.0-7.7 [facility] Comment on above: Performed By: #### L 509.8002, L100.0100, L3890.6006 ####[facility] [address] [place], [address] IG% 0.800 Normal 0.0-0.9 [facility] Comment on above: Result Comment: IG% - Immature Granulocytes (promyelocytes, myelocytes and metamyelocytes) > 1% indicates that a LEFT SHIFT is Present. Performed By: #### L 509.8002, L100.0100, L3890.6006 ####[facility] [address] [place], [address] Lymphocytes/100 WBC (Bld) 23.8 % Normal 19-41 [facility] Comment on above: Performed By: #### L 509.8002, L100.0100, L3890.6006 ####[facility] [address] [place], [address] Nucleated RBC (Bld) [#/Vol] 0 10*3/uL Normal 0-5 [facility] Comment on above: Performed By: #### L 509.8002, L100.0100, L3890.6006 ####[facility] [address] [place], [address] RDW SD 43.9 fl Normal 35.1-43.9 [facility] Comment on above: Performed By: #### L 509.8002, L100.0100, L3890.6006 ####[facility] [address] [place], [address] Eosinophil percentageOrdered By: Mae Reeves on 02-12-2025 Eosinophils/100 WBC (Bld) 2.2 % Normal 0-5 [facility] Comment on above: Performed By: #### L 509.8002, L100.0100, L3890.6006 ####[facility] [address] [place], [address] Erythrocyte distribution wid th ratioOrdered By: Mae Reeves on 02-12-2025 Erythrocyte distribution width (RBC) [Ratio] 13.4 % Normal 11.6-14.6 [facility] Comment on above: Performed By: #### L 509.8002, L100.0100, L3890.6006 ####[facility] [address] [place], [address] Erythrocyte distribution wid th standard deviationOrdered By: Mae Reeves on 02-12-2025 Erythrocyte distribution width (RBC) [Ratio] 43.9 fl 35.1-43.9 [facility] HIVon 02-12-2025 HIV Non-Reactive Normal Nonreactive [facility] Comment on above: Result Comment: Non- Reactive Reactive Repeatedly reactive samples must be confirmed according to CDC recommended confirmatory algorithms. The subresults for either HIVAG or AHIV can be used as an aid in the selection of the confirmation algorithm for reactive samples. Send out specimens with Reactive results to [facility] for confirmation. Order the HIV antibody detection and differentiation: lc#[id number] Performed By: #### L 509.8002, L100.0100, L3890.6006 ####[facility] [address] [place], [address] Hemoglobin measurementOrdere d By: Mae Reeves on 02-12-2025 Hemoglobin (Bld) [Mass/Vol] 11.2 g/dL Low 12.0-15.0 [facility] Comment on above: Performed By: #### L 509.8002, L100.0100, L3890.6006 ####[facility] [address] [place], [address] Immature granulocytes/100 WB C Auto (Bld)Ordered By: Mae Reeves on 02-12-2025 Immature granulocytes/100 WBC (Bld) 0.800 % 0.0-0.9 [facility] Comment on above: IG% - Immature Granu locytes (promyelocytes, myelocytes and metamyelocytes) > 1% indicates that a LEFT SHIFT is Present. Laboratory - Chemistry and C hemistry - challengeOrdered By: Rebecca Jackson on 02-12-2025 Glucose Ql (U) Negative [facility] Laboratory - UrinalysisOrder ed By: Rebecca Jackson on 02-12-2025 Protein Ql (U) Negative [facility] MCV (mean corpuscular volume ) determinationOrdered By: Mae Reeves on 02-12-2025 MCV (RBC) [Entitic vol] 90.1 fL Normal 81-99 [facility] Comment on above: Performed By: #### L 509.8002, L100.0100, L3890.6006 ####[facility] [address] [place], [address] Mean corpuscular hemoglobin (MCH) determinationOrdered By: Mae Reeves on 02-12-2025 MCH (RBC) [Entitic mass] 29.9 pg Normal 27.0-32.0 [facility] Comment on above: Performed By: #### L 509.8002, L100.0100, L3890.6006 ####[facility] [address] [place], [address] Mean corpuscular hemoglobin concentration (MCHC) determinationOrdered By: Mae Reeves on 02-12-2025 MCHC (RBC) [Mass/Vol] 33.1 g/dL Normal 32-36 [facility] Comment on above: Performed By: #### L 509.8002, L100.0100, L3890.6006 ####[facility] [address] [place], [address] Mean platelet volume determi nationOrdered By: Mae Reeves on 02-12-2025 Platelet mean volume (Bld) [Entitic vol] 9.8 fL Normal 6.2-12.0 [facility] Comment on above: Performed By: #### L 509.8002, L100.0100, L3890.6006 ####[facility] [address] [place], [address] Monocyte percentageOrdered B y: Mae Reeves on 02-12-2025 Monocytes/100 WBC (Bld) 5.5 % Normal 0-10 [facility] Comment on above: Performed By: #### L 509.8002, L100.0100, L3890.6006 ####[facility] [address] [place], [address] Neutrophil percentageOrdered By: Mae Reeves on 02-12-2025 Neutrophils/100 WBC (Bld) 67.4 % Normal 47-70 [facility] Comment on above: Performed By: #### L 509.8002, L100.0100, L3890.6006 ####[facility] [address] [place], [address] No Panel InformationOrdered By: Mae Reeves on 02-12-2025 HIV (1&2) Antibody Non-Reactive Nonreactive [facility] Comment on above: Non-ReactiveReactive Repeatedly reactive samples must be confirmed according to CDC recommended confirmatory algorithms. The subresults for either HIVAG or AHIV can be used as an aid in the selection of the confirmation algorithm for reactive samples.Send out specimens with Reactive results to [facility] for confirmation.Order the HIV antibody detection and differentiation: #[id number] Nucleated red blood cell per centageOrdered By: Mae Reeves on 02-12-2025 Nucleated RBC/100 WBC (Bld) [Ratio] 0 % 0-5 [facility] Sausage [employer]er Office Visit Reporton 02-12-2025 Sausage Stringer Office Visit Report [facility]'[address], [address] [place] [address] OFFICE VISIT Date of Service: 02/12/25 MR#: [id number] Acct: [id number] Name: TASIA ALMAGUER Rep #: [id number] : 1990 Provider: VIVIANE elkins Age/Sex: 34/F Location: [facility] Status: Signed with Addenda ADDENDUM by Nidhi Lyman on 02/12/25 at 1423 Office Procedure Documentation entered by Nidhi Lyman 02/12/25 14:23: Immunizations Adacel(Tdap Adolesn/Adult)(PF) 2 Lf-(2.5-5-3-5)-5 Lf/0.5 mL IM syringe Performing Provider: VIVIANE Molina NP Performing Location: [facility] Administered by: Nidhi Lyman on 02/12/25 14:22 Dose Route Admin Location Dispensed Lot Number Expiration Date NDC Man ufacturer 0.5 mL IM Left Deltoid 0.5 mL [id number] 01/29/27 97311-843-08 [employer]P [employer] VIS Given Date VIS Provided [...] 28wk ob Chief Complaint: 28 Week OB Shipping And Receiving Clerk Required: No Is patient in pain?: No [...] 3-4 times per week duration: 15-30 minutes/day geoffrey/mandaeism: None seatbelt use: always do you feel [...] - full term 8lbs 3oz Male epidural [facility] Carmelo June Delivery Date: 06/17/21 Last Updated by: Xuan Belcher GDM; mild uterine atony; 1st degree laceration HPI 28wk ob Details: TASIA ALMAGUER is a 34 year old who presents for routine OB visit. OB Visit GIANFRANCO Calculator Estimated Delivery Date Method Current WG Current Estimate 05/01/25 LMP (Certain) 28w 6d Other Estimates 05/03/25 Ultrasound #1 28w 4d (more content not included)... Normal [facility] Platelet countOrdered By: Joel Reeves on 02-12-2025 Platelets (Bld) [#/Vol] 348 10*3/uL Normal 150-450 [facility] Comment on above: Performed By: #### L 509.8002, L100.0100, L3890.6006 ####[facility] [address] [facility]. [place], [place], [id number] Syphilis Antibodieson 2024 Syphilis Abs Non-Reactive Normal Nonreactive [facility] Comment on above: Performed By: #### L 509.8002, L100.0100, L3890.6006 ####[facility] [address] [facility]. [place], [place], [id number] White blood cell (WBC) count Ordered By: Mae Reeves on 02-12-2025 WBC (Bld) [#/Vol] 10.9 10*3/uL Normal 4.4-11.[address] [facility] Comment on above: Performed By: #### L 509.8002, L100.0100, L3890.6006 ####[facility] [address] [place], [address] Laboratory - Chemistry and C hemistry - challengeOrdered By: Mae Dukesanika on 01-17-2025 Glucose Ql (U) Negative [facility] Laboratory - UrinalysisOrder ed By: Mae Reeves on 01-17-2025 Protein Ql (U) Negative [facility] Sausage Stringer Office Visit Reporton 01-17-2025 Sausage Stringer Office Visit Report [facility]'s [address], [address] [place] [address] OFFICE VISIT Date of Service: 01/17/25 MR#: [id number] Acct: [id number] Name: TASIA ALMAGUER Rep #: [id number] : 1990 Provider: Dr. Mae bailey MD Age/Sex: 34/F Location: [facility] Status: Signed Intake Vital Signs 10/23/24 14:32 01/01/25 09:01 01/17/25 15:42 01/17/25 15:47 Height 5 ft 7 in 5 ft 7 in 5 ft 7 in 5 ft 7 in Weight: 277 lb BMI 43.4 BP 118/78 Intake Visit Reasons: 24wk ob Shipping And Receiving Clerk Required: No Is patient in pain?: No [...] ea 09/25/24 01/17/25 Rx 5/32 (BD Ultra-Fine Kiah Pen Needle) [...] Zika: Zika virus screening: Negative : No [facility] Medical History (Updated 01/17/25 @ 16:38 by [...] 3-4 times per week duration: 15-30 minutes/day geoffrey/mandaeism: None seatbelt use: always do you feel [...] - full term 8lbs 3oz Male epidural [facility] Carm[place] June Delivery Date: 06/17/21 Last Updated [...] -???-???-???-???-?? ?-???-???-???-???- (more content not included)... Normal [facility] Endocrinology Visit Reporton 01-01-2025 Endocrinology Visit Report [facility] [address] [facility] [place] [address] OFFICE VISIT Date of Service: 01/01/25 MR#: [id number] Acct: [id number] Name: TASIA ALMAGUER Rep #: [id number] : 1990 Provider: Joy Gar Age/Sex: 34/F Location: [facility] Status: Signed Intake Vital Signs 09/25/24 13:59 [...] sensor (FreeStyle #6 ea 09/25/24 01/01/25 Rx Vamis 3 Plus Sensor device) pen needle, diabetic [...] subcutaneous pen Patient : Yes (22 weeks) [facility] Medical History (Updated 01/01/25 @ 10:29 by [...] 3-4 times per week duration: 15-30 minutes/day geoffrey/mandaeism: None seatbelt use: always do you feel [...] hearing sharlene (more content not included)... Normal [facility] Laboratory - Hematology and Cell countsOrdered By: Theodore Dunne on 01-01-2025 HbA1c (Bld) [Mass fraction] 5.1 % 4.2-6.3 [facility] Laboratory - Chemistry and C hemistry - challengeOrdered By: Magalys Mclaughlin on 12-18-2024 Glucose Ql (U) Negative [facility] Laboratory - UrinalysisOrder ed By: Magalys Mclaughlin on 12-18-2024 Protein Ql (U) Trace [facility] Sausage Stringer Office Visit Reporton 12-18-2024 Sausage Stringer Office Visit Report [facility]'[address], [address] [place] [address] OFFICE VISIT Date of Service: 12/18/24 MR#: [id number] Acct: [id number] Name: TASIA ALMAGUER Rep #: [id number] : 1990 Provider: Dr. Magalys Ramirez DO Age/Sex: 34/F Location: [facility] Status: Signed Intake Vital Signs 10/23/24 14:32 11/20/24 09:28 12/18/24 15:43 12/18/24 15:44 Height 5 ft 7 in 5 ft 7 in 5 ft 7 in 5 ft 7 in Weight: 279 lb 4 oz BMI 43.7 BP 122/82 H Intake Visit Reasons: 20wk ob Shipping And Receiving Clerk Required: No Is patient in pain?: No [...] Zika virus screening: Negative : No PFSH PFS Medical History (Updated 12/18/24 @ 16:[address] Magalys Stoner, DO) Type 2 diabetes mellitus affecting in [...] 3-4 times per week duration: 15-30 minutes/day geoffrey/mandaeism: None seatbelt use: always do you feel [...] - full term 8lbs 3oz Male epidural [facility] S Joy June Delivery Date: 06/17/21 Last [...] list details Ini (more content not included)... [facility] L3410.9992on 11-23-2024 [facility] Comment on above: Order Comment: 98002 1msAFP SERUM RT Result Comment: TEST RESULTS LIMITS [...] AFP MoM 0.55 OSBR [place] 1 [place] [address] Interpretation Interpretation: Screen Negative This result is [...] Customer Services to discuss available options. The [employer] recommends amniocentesis be offered to women age 35 and older. Comment: Donna Berry, Ph.D., [facility] Director References: Available Upon Request. Multiples Of Median Cutoffs For AFP Elevations Jones 2.5 Black 2.8 IDD 2.0 Twins 4.5 Abbreviation Definitions IDD - Insulin Dep Diabetes OSBR - Open Spina Bifida Risk For further inquiries contact [facility] at [phone]. This test was developed and its performance characteristics determined by [facility]. It has not been cleared or approved by the Food and Drug Administration. TESTING PERFORMED AT [facility]. ORIGINAL REPORT ON FILE IN LAB CONTAINS ADDITIONAL TEST SITE INFORMATION. Performed By: #### L 3410.9992 ####[facility] [address] [place], [address] Laboratory - Chemistry and C hemistry - challengeOrdered By: Tere Xiong on 11-20-2024 Glucose Ql (U) Negative [facility] Laboratory - UrinalysisOrder ed By: Tere Xiong on 11-20-2024 Protein Ql (U) Negative [facility] S[employer]age [employer]er Office Visit Reporton 11-20-2024 Sausage Stringer Office Visit Report [facility]'[address], [address] [place] [address] OFFICE VISIT Date of Service: 11/20/24 MR#: [id number] Acct: [id number] Name: TASIA ALMAGUER Rep #: [id number] : 1990 Provider: CLAUDIO Mckinney ams Age/Sex: 34/F Location: [facility] Status: Signed Intake Vital Signs 09/25/24 08:44 10/23/24 14:32 11/20/24 09:24 11/20/24 09:28 Height 5 ft 7 in 5 ft 7 in 5 ft 7 in 5 ft 7 in Weight: 270 lb BMI 42.3 BP 129/81 H Intake Visit Reasons: 16 wk ob Chief Complaint: no concerns Shipping And Receiving Clerk Required: No Is patient in pain?: No [...] 3-4 times per week duration: 15-30 minutes/day geoffrey/mandaeism: None seatbelt use: always do you feel [...] term 8lbs 3oz Male epidural [facility] [place] Delivery Date: 06/17/21 Last [...] Increasing labet (more content not included)... Normal [facility] Laboratory - Chemistry and C hemistry - challengeOrdered By: Magalys Mclaughlin on 10-23-2024 Glucose Ql (U) Negative [facility] Laboratory - UrinalysisOrder ed By: Magalys Mclaughlin on 10-23-2024 Protein Ql (U) Negative [facility] S[employer]age [employer]er Office Visit Reporton 10-23-2024 Sausage Stringer Office Visit Report [facility]'[address], [address] [place] [address] OFFICE VISIT Date of Service: 10/23/24 MR#: [id number] Acct: [id number] Name: TASIA ALMAGUER Rep #: [id number] : 1990 Provider: Dr. Magalys Ramirez, Age/Sex: 34/F Location: [facility] Status: Signed Intake Vital Signs 09/27/23 09:56 09/25/24 13:59 10/23/24 14:32 10/23/24 14:32 Height 5 ft 7 in 5 ft 7 in 5 ft 7 in 5 ft 7 in Weight: 266 lb 6 oz BMI 41.7 BP 141/92 H Intake Visit Reasons: 12wk OB Shipping And Receiving Clerk Required: No Is patient in pain?: No [...] 3-4 times per week duration: 15-30 minutes/day geoffrey/mandaeism: None seatbelt use: always do you feel safe at home: Yes additional social history: : [place] [facility] [place] History 2 Elective abortions Hx Para 1 Spontaneous abortions 0 Hx # Term Pregnancies Ectopic pregnancies Hx # Pregnancies Multiple births # of living children 1 Past Pregnancies Del. Date Name GA/Weeks Outcome Route Bth Weight Infant Gen Labor Lgth Anesthesia Del Locatn Provider FOB 06/17/21 Ernie 39 live - full term 8lbs 3oz Male epidural [facility] Carmelo Hamilton June Delivery Date: 06/17/21 Last Updated by: [...] Initial Weig (more content not included)... Normal [facility] Chlamydia/GC NENITA aptimaon CHLAMY,NUC ACID Negative Normal Negative [facility] Comment on above: Performed By: #### M 100.2200, L501.0900, L7000.1800 #### [facility] [address] [place], [place], [id number] GC BY NUC ACID Negative Normal Negative [facility] Comment on above: Result Comment: Perf ormed at: =G - [facility] [address] [id number] Graphics Artist: Erna Farr MD, Phone: [phone] Performed By: #### M 100.2200, L501.0900, L7000.1800 #### [facility] [address] [place], [place], [address] Urine Cultureon 09-27-2024 URC #1,2 Below infection level. Streptococcus agalactiae (B) [place] Count <1000 Mixed Gram Positive Organisms Mixed Gram Positive Organisms MIXC Mixed contaminants. Submit a new specimen if indicated. [facility] Comment on above: Performed By: #### M 100.2200, L501.0900, L7000.1800 ####[facility] [address] [place], [address] Comprehensive Metabolic Prof ilon 09-26-2024 Albumin [Mass/Vol] 3.3 g/dL Normal 3.2-5.0 [facility] Comment on above: Performed By: #### L 501.9985, L3890.6300, L3890.6100, L500.4050, L3890.6005, L509.8000, L501.9520, L100.0100, L509.4005, BTS ####[facility] [address] [place], [address] Albumin/Globulin [Mass ratio] 0.8 {ratio} Low 0.9-2.4 [facility] Comment on above: Performed By: #### L 501.9985, L3890.6300, L3890.6100, L500.4050, L3890.6005, L509.8000, L501.9520, L100.0100, L509.4005, BTS ####[facility] [address] [place], [address] ALK P 108 U/L Normal 45-117 [facility] Comment on above: Performed By: #### L 501.9985, L3890.6300, L3890.6100, L500.4050, L3890.6005, L509.8000, L501.9520, L100.0100, L509.4005, BTS ####[facility] [address] [place], [address] ALT [Catalytic activity/Vol] 19 U/L Normal 13-56 [facility] Comment on above: Performed By: #### L 501.9985, L3890.6300, L3890.6100, L500.4050, L3890.6005, L509.8000, L501.9520, L100.0100, L509.4005, BTS ####[facility] [address] [place], [address] AST [Catalytic activity/Vol] 10 U/L Low 15-37 [facility] Comment on above: Performed By: #### L 501.9985, L3890.6300, L3890.6100, L500.4050, L3890.6005, L509.8000, L501.9520, L100.0100, L509.4005, BTS ####[facility] [address] [place], [address] Bilirubin [Mass/Vol] 0.50 mg/dL Normal 0.20-1.00 [facility] Comment on above: Result Comment: For patients on eltrombopag therapy, use of Dimension [place] TBIL is not recommended. Performed By: #### L 501.9985, L3890.6300, L3890.6100, L500.4050, L3890.6005, L509.8000, L501.9520, L100.0100, L509.4005, BTS ####[facility] [address] [place], [address] BUN/CRE 12.0 RATIO Normal 10-20 [facility] Comment on above: Performed By: #### L 501.9985, L3890.6300, L3890.6100, L500.4050, L3890.6005, L509.8000, L501.9520, L100.0100, L509.4005, BTS ####[facility] [address] [place], [address] CA,Total 9.5 mg/dL Normal 8.5-10.1 [facility] Comment on above: Performed By: #### L 501.9985, L3890.6300, L3890.6100, L500.4050, L3890.6005, L509.8000, L501.9520, L100.0100, L509.4005, BTS ####[facility] [address] [place], [address] Chloride [Moles/Vol] 104 mmol/L Normal 98-107 [facility] Comment on above: Performed By: #### L 501.9985, L3890.6300, L3890.6100, L500.4050, L3890.6005, L509.8000, L501.9520, L100.0100, L509.4005, BTS ####[facility] [address] [place], [address] CO2 [Moles/Vol] 24.0 mmol/L Normal 21.0-32.0 [facility] Comment on above: Performed By: #### L 501.9985, L3890.6300, L3890.6100, L500.4050, L3890.6005, L509.8000, L501.9520, L100.0100, L509.4005, BTS ####[facility] [address] [place], [address] Creatinine [Mass/Vol] 0.66 mg/dL Normal 0.55-1.02 [facility] Comment on above: Result Comment: The validity of the calculated GFR GFRAA in patients over 70 years has not been determined. Clinical correlation is essential. Performed By: #### L 501.9985, L3890.6300, L3890.6100, L500.4050, L3890.6005, L509.8000, L501.9520, L100.0100, L509.4005, BTS ####[facility] [address] [place], [address] EST GFR - AA 132 mL/min Normal >60 [facility] Comment on above: Result Comment: Afri can [place] GFR Calc Performed By: #### L 501.9985, L3890.6300, L3890.6100, L500.4050, L3890.6005, L509.8000, L501.9520, L100.0100, L509.4005, BTS ####[facility] [address] [place], [place], [phone]) GAP 8 Normal 5-15 [facility] Comment on above: Performed By: #### L 501.9985, L3890.6300, L3890.6100, L500.4050, L3890.6005, L509.8000, L501.9520, L100.0100, L509.4005, BTS ####[facility] [address] [place], [phone]) GFR/1.73 sq M.predicted among non-blacks MDRD (S/P/Bld) [Vol rate/Area] 109 mL/min/{1.73_m2} Normal >60 [facility] Comment on above: Result Comment: Non- GFR Calc Performed By: #### L 501.9985, L3890.6300, L3890.6100, L500.4050, L3890.6005, L509.8000, L501.9520, L100.0100, L509.4005, BTS ####[facility] [address] [place], [place], [phone] Globulin (S) [Mass/Vol] 4.3 g/dL High 2.2-4.2 [facility] Comment on above: Performed By: #### L 501.9985, L3890.6300, L3890.6100, L500.4050, L3890.6005, L509.8000, L501.9520, L100.0100, L509.4005, BTS ####[facility] [address] [place], [place], [phone] Glucose [Mass/Vol] 233 mg/dL High 74-106 [facility] Comment on above: Result Comment: Gluc ose result greater than or equal to 200 mg/dL suggests DIABETES MELLITUS per A.D.A. criteria. Performed By: #### L 501.9985, L3890.6300, L3890.6100, L500.4050, L3890.6005, L509.8000, L501.9520, L100.0100, L509.4005, BTS ####[facility] [address] [place], [address] Potassium [Moles/Vol] 4.0 mmol/L Normal 3.5-5.1 [facility] Comment on above: Performed By: #### L 501.9985, L3890.6300, L3890.6100, L500.4050, L3890.6005, L509.8000, L501.9520, L100.0100, L509.4005, BTS ####[facility] [address] [place], [address] Sodium [Moles/Vol] 136 mmol/L Normal 136-145 [facility] Comment on above: Performed By: #### L 501.9985, L3890.6300, L3890.6100, L500.4050, L3890.6005, L509.8000, L501.9520, L100.0100, L509.4005, BTS ####[facility] [address] [place], [address] T PROT 7.6 g/dL Normal 6.4-8.2 [facility] Comment on above: Performed By: #### L 501.9985, L3890.6300, L3890.6100, L500.4050, L3890.6005, L509.8000, L501.9520, L100.0100, L509.4005, BTS ####[facility] [address] [place], [address] Urea nitrogen [Mass/Vol] 8 mg/dL Normal 7-18 [facility] Comment on above: Performed By: #### L 501.9985, L3890.6300, L3890.6100, L500.4050, L3890.6005, L509.8000, L501.9520, L100.0100, L509.4005, BTS ####[facility] [address] [place], [place], [phone] Thyroid Stim Hormone (TSH)on 09-26-2024 TSH 0.942 uIU/mL Normal 0.358-3.740 [facility] Comment on above: Performed By: #### L 501.9985, L3890.6300, L3890.6100, L500.4050, L3890.6005, L509.8000, L501.9520, L100.0100, L509.4005, BTS ####[facility] [address] [place], [place], [phone] Absolute lymphocyte countOrd ered By: Magalys Mclaughlin on 09-25-2024 Lymphocytes Auto (Unsp spec) [#/Vol] 2.79 10*3/uL 0.83-4.51 [facility] Absolute neutrophil countOrd ered By: Magalys Mclaughlin on 09-25-2024 Neutrophils (Bld) [#/Vol] 7.4 10*3/uL 2.0-7.7 [facility] Albumin to globulin ratioOrd ered By: Magalys Mclaughlin on 09-25-2024 Albumin/Globulin [Mass ratio] 0.8 {ratio} Low 0.9-2.4 [facility] Automated lymphocyte count a s percentage of total leukocytesOrdered By: Magalys Mclaughlin on 09-25-2024 Lymphocytes/100 WBC Auto (Unsp spec) 24.6 % 19-41 [facility] Basophil percentageOrdered B y: Magalys Mclaughlin on 09-25-2024 Basophils/100 WBC (Bld) 0.4 % 0-1 [facility] Bilirubin, totalOrdered By: Magalys Mclaughlin on 09-25-2024 Bilirubin [Mass/Vol] 0.50 mg/dL 0.20-1.00 [facility] Comment on above: For patients on eltr ombopag therapy, use of Dimension [place] TBIL is not recommended. Blood urea nitrogen (BUN)/cr eatinine ratioOrdered By: Magalys Mclaughlin on 09-25-2024 Urea nitrogen/Creatinine [Mass ratio] 12.0 mg/mg 10- [facility] C. trachomatis rRNA NENITA+prob e Ql (Unsp spec)Ordered By: Magalys Mclaughlin on 09-25-2024 Chlamydia DNA (NENITA) Negative Negative [facility] CBC W/Diff, Automatedon 09-03 Absolute Lymph 2.79 X10 3/uL Normal 0.83-4.51 [facility] Comment on above: Performed By: #### L 501.9985, L3890.6300, L3890.6100, L500.4050, L3890.6005, L509.8000, L501.9520, L100.0100, L509.4005, BTS ####[facility] [address] [place], [address] Absolute Neut 7.4 X10 3/uL Normal 2.0-7.7 [facility] Comment on above: Performed By: #### L 501.9985, L3890.6300, L3890.6100, L500.4050, L3890.6005, L509.8000, L501.9520, L100.0100, L509.4005, BTS ####[facility] [address] [place], [address] Basophils/100 WBC (Bld) 0.4 % Normal 0-1 [facility] Comment on above: Performed By: #### L 501.9985, L3890.6300, L3890.6100, L500.4050, L3890.6005, L509.8000, L501.9520, L100.0100, L509.4005, BTS ####[facility] [address] [place], [address] Eosinophils/100 WBC (Bld) 4.1 % Normal 0-5 [facility] Comment on above: Performed By: #### L 501.9985, L3890.6300, L3890.6100, L500.4050, L3890.6005, L509.8000, L501.9520, L100.0100, L509.4005, BTS ####[facility] [address] [place], [place], [phone] Erythrocyte distribution width (RBC) [Ratio] 12.3 % Normal 11.6-14.6 [facility] Comment on above: Performed By: #### L 501.9985, L3890.6300, L3890.6100, L500.4050, L3890.6005, L509.8000, L501.9520, L100.0100, L509.4005, BTS ####[facility] [address] [place], [address](018) Hematocrit (Bld) [Volume fraction] 42.6 % Normal 37-47 [facility] Comment on above: Performed By: #### L 501.9985, L3890.6300, L3890.6100, L500.4050, L3890.6005, L509.8000, L501.9520, L100.0100, L509.4005, BTS ####[facility] [address] [place], [place], [phone]) Hemoglobin (Bld) [Mass/Vol] 14.5 g/dL Normal 12.0-15.0 [facility] Comment on above: Performed By: #### L 501.9985, L3890.6300, L3890.6100, L500.4050, L3890.6005, L509.8000, L501.9520, L100.0100, L509.4005, BTS ####[facility] [address] [place], [place], [phone]) IG% 0.500 Normal 0.0-0.9 [facility] Comment on above: Result Comment: IG% - Immature Granulocytes (promyelocytes, myelocytes and metamyelocytes) > 1% indicates that a LEFT SHIFT is Present. Performed By: #### L 501.9985, L3890.6300, L3890.6100, L500.4050, L3890.6005, L509.8000, L501.9520, L100.0100, L509.4005, BTS ####[facility] [address] [place], [place], [phone]) Lymphocytes/100 WBC (Bld) 24.6 % Normal 19-41 [facility] Comment on above: Performed By: #### L 501.9985, L3890.6300, L3890.6100, L500.4050, L3890.6005, L509.8000, L501.9520, L100.0100, L509.4005, BTS ####[facility] [address] [place], [place], [phone] MCH (RBC) [Entitic mass] 30.0 pg Normal 27.0-32.0 [facility] Comment on above: Performed By: #### L 501.9985, L3890.6300, L3890.6100, L500.4050, L3890.6005, L509.8000, L501.9520, L100.0100, L509.4005, BTS ####[facility] [address] [place], [place], [phone]) MCHC (RBC) [Mass/Vol] 34.0 g/dL Normal 32-36 [facility] Comment on above: Performed By: #### L 501.9985, L3890.6300, L3890.6100, L500.4050, L3890.6005, L509.8000, L501.9520, L100.0100, L509.4005, BTS ####[facility] [address] [place], [place], [phone](583) MCV (RBC) [Entitic vol] 88.2 fL Normal 81-99 [facility] Comment on above: Performed By: #### L 501.9985, L3890.6300, L3890.6100, L500.4050, L3890.6005, L509.8000, L501.9520, L100.0100, L509.4005, BTS ####[facility] [address] [place], [address] Monocytes/100 WBC (Bld) 4.9 % Normal 0-10 [facility] Comment on above: Performed By: #### L 501.9985, L3890.6300, L3890.6100, L500.4050, L3890.6005, L509.8000, L501.9520, L100.0100, L509.4005, BTS ####[facility] [address] [place], [address] Neutrophils/100 WBC (Bld) 65.5 % Normal 47-70 [facility] Comment on above: Performed By: #### L 501.9985, L3890.6300, L3890.6100, L500.4050, L3890.6005, L509.8000, L501.9520, L100.0100, L509.4005, BTS ####[facility] [address] [place], [place], [phone]) Nucleated RBC (Bld) [#/Vol] 0 10*3/uL Normal 0-5 [facility] Comment on above: Performed By: #### L 501.9985, L3890.6300, L3890.6100, L500.4050, L3890.6005, L509.8000, L501.9520, L100.0100, L509.4005, BTS ####[facility] [address] [place], [address] Platelet mean volume (Bld) [Entitic vol] 9.7 fL Normal 6.2-12.0 [facility] Comment on above: Performed By: #### L 501.9985, L3890.6300, L3890.6100, L500.4050, L3890.6005, L509.8000, L501.9520, L100.0100, L509.4005, BTS ####[facility] [address] [place], [address] Platelets (Bld) [#/Vol] 307 10*3/uL Normal 150-450 [facility] Comment on above: Performed By: #### L 501.9985, L3890.6300, L3890.6100, L500.4050, L3890.6005, L509.8000, L501.9520, L100.0100, L509.4005, BTS ####[facility] [address] [place], [address] RBC (Bld) [#/Vol] 4.83 10*6/uL Normal 4.2-5.[address] [facility] Comment on above: Performed By: #### L 501.9985, L3890.6300, L3890.6100, L500.4050, L3890.6005, L509.8000, L501.9520, L100.0100, L509.4005, BTS ####[facility] [address] [place], [address] RDW SD 39.9 fl Normal 35.1-43.9 [facility] Comment on above: Performed By: #### L 501.9985, L3890.6300, L3890.6100, L500.4050, L3890.6005, L509.8000, L501.9520, L100.0100, L509.4005, BTS ####[facility] [address] [place], [address] WBC (Bld) [#/Vol] 11.3 10*3/uL High 4.4-11.[address] [facility] Comment on above: Performed By: #### L 501.9985, L3890.6300, L3890.6100, L500.4050, L3890.6005, L509.8000, L501.9520, L100.0100, L509.4005, BTS ####[facility] [address] [place], [place], [address] Carbon dioxide measurementOr dered By: Magalys Mclaughlin on 09-25-2024 CO2 [Moles/Vol] 24.0 mmol/L 21.0-32.0 [facility] Chlamydia trachomatis rRNA d etection by probe and target amplification methodOrdered By: Magalys Mclaughlin on 09-25-2024 C. trachomatis rRNA NENITA+probe Ql (Unsp spec) Negative Negative [facility] Chloride measurementOrdered By: Magalys Mclaughlin on 09-25-2024 Chloride [Moles/Vol] 104 mmol/L 98-107 [facility] Endocrinology Visit Reporton 09-25-2024 Endocrinology Visit Report [facility] [address] [place], [place] [address] OFFICE VISIT Date of Service: 09/25/24 MR#: [id number] Acct: [id number] Name: TASIA ALMAGUER Rep #: [id number] : 1990 Provider: Joy Gar Age/Sex: 34/F Location: [facility] Status: Signed Intake Vital Signs 09/27/23 09:56 [...] with primary 0 09/08/24 09/25/24 History doctor Trepattie FlexTouch U-200 200 40 unit (0.2 mL) [...] Rx 5/32 (BD Ultra-Fine Kiah Pen Needle) [facility] Medical History (Updated 09/25/24 @ 14:59 by [...] 3-4 times per week duration: 15-30 minutes/day geoffrey/mandaeism: None seatbelt use: always do you feel [...] appearing, comfortable, (more content not included)... Normal [facility] Eosinophil percentageOrdered By: Magalys Mclaughlin on 09-25-2024 Eosinophils/100 WBC (Bld) 4.1 % 0-5 [facility] Erythrocyte distribution wid th ratioOrdered By: Magalys Mclaughlin on 09-25-2024 Erythrocyte distribution width (RBC) [Ratio] 12.3 % 11.6-14.6 [facility] Erythrocyte distribution wid th standard deviationOrdered By: Magalys Mclaughlin on 09-25-2024 Erythrocyte distribution width (RBC) [Entitic vol] 39.9 fL 35.1-43.9 [facility] Erythrocyte distribution width (RBC) [Ratio] 39.9 fl 35.1-43.9 [facility] Estimated glomerular filtrat ion rate (GFR) AmericanOrdered By: Magalys Mclaughlin on 09-25-2024 Estimated GFR (MDRD) Amer 132 mL/min >60 [facility] Comment on above: GFR Calc Glomerular filtration rate ( GFR) estimationOrdered By: Magalys Mclaughlin on 09-25-2024 Estimated GFR (MDRD) Non-Af Amer 109 mL/min >60 [facility] Comment on above: Non- GFR Calc GFR/1.73 sq M.predicted among non-blacks MDRD (S/P/Bld) [Vol rate/Area] 109 mL/min/{1.73_m2} >60 [facility] Comment on above: Non- GFR Calc Glucose measurementOrdered B y: Magalys Mclaughlin on 09-25-2024 Glucose [Mass/Vol] 233 mg/dL High 74-106 [facility] Comment on above: Glucose result great er than or equal to 200 mg/dLsuggests DIABETES MELLITUS per A.D.A. criteria. HIV - WCHon 09-25-2024 HIV Non-Reactive Normal Nonreactive [facility] Comment on above: Order Comment: Reaso n for Exam: Performed By: #### L 501.9985, L3890.6300, L3890.6100, L500.4050, L3890.6005, L509.8000, L501.9520, L100.0100, L509.4005, BTS ####[facility] [address] [place], [address] HIV 1 and HIV-2 antibody ass ay with HIV-1 p24 antigen detectionOrdered By: Magalys Mclaughlin on 09-25-2024 HIV 1+2 Ab+HIV1 p24 Ag IA Ql Non-Reactive Nonreactive [facility] HIV 1+2 Ab+HIV1 p24 Ag IA Ql Ordered By: Magalys Mclaughlin on 09-25-2024 HIV (1&2) Antibody Non-Reactive Nonreactive [facility] Hematocrit Auto (Bld) [Volum e fraction]Ordered By: Magalys Mclaughlin on 09-25-2024 Hematocrit (Bld) [Volume fraction] 42.6 % 37-47 [facility] Hemoglobin A1con 09-25-2024 HbA1c (Bld) [Mass fraction] 9.9 % High 3.8-5.6 [facility] Comment on above: Result Comment: Norm al < 5.7 % Prediabetic 5.7 - 6.4 % Diabetic >or= 6.5 % Please note range changes. Performed By: #### L 501.9985, L3890.6300, L3890.6100, L500.4050, L3890.6005, L509.8000, L501.9520, L100.0100, L509.4005, BTS ####[facility] [address] [place], [address] Hemoglobin A1c percentageOrd ered By: Magalys Mclaughlin on 09-25-2024 HbA1c (Bld) [Mass fraction] 9.9 % High 3.8-5.6 [facility] Comment on above: Normal < 5.7 % Predi abetic 5.7 - 6.4 % Diabetic >or= 6.5 % Please note range changes. Hemoglobin measurementOrdere d By: Magalys Mclaughlin on 09-25-2024 Hemoglobin (Bld) [Mass/Vol] 14.5 g/dL 12.0-15.0 [facility] Hepatitis B Surface Antigeno n 09-25-2024 HEP B Surf Ag Non-Reactive Normal Nonreactive [facility] Comment on above: Order Comment: Reaso n for Exam: Performed By: #### L 501.9985, L3890.6300, L3890.6100, L500.4050, L3890.6005, L509.8000, L501.9520, L100.0100, L509.4005, BTS ####[facility] [address] [place], [place], [phone] Hepatitis B surface antigen detectionOrdered By: Magalys Mclaughlin on 09-25-2024 Hepatitis B Surface Antigen Non-Reactive Nonreactive [facility] Hepatitis C Antibodyon 09-25 Hepatitis C AB Non-Reactive Normal Nonreactive [facility] Comment on above: Order Comment: Reaso n for Exam: Result Comment: Non Reactive: < 0.8 Equivocal: >/= 0.8 to < 1.0 Reactive: >/= 1.0 The [facility] [place] requires that a reactive/equivocal HCV antibody result be sent out for confirmation. HCV Quant by PCR testing. Performed By: #### L 501.9985, L3890.6300, L3890.6100, L500.4050, L3890.6005, L509.8000, L501.9520, L100.0100, L509.4005, BTS ####[facility] [address] [place], [place], [phone] Hepatitis C virus antibody a ssayOrdered By: Magalys Mclaughlin on 09-25-2024 Hepatitis C Antibody Non-Reactive Nonreactive [facility] Comment on above: Non Reactive: < 0.8 Equivocal: >/= 0.8 to < 1.0 Reactive: >/= 1.0The [facility] [place] requires that a reactive/equivocal HCV antibody result be sent out for confirmation. HCV Quant by PCR testing. Immature granulocytes/100 WB C Auto (Bld)Ordered By: Magalys Mclaughlin on 09-25-2024 Immature granulocytes/100 WBC (Bld) 0.500 % 0.0-0.9 [facility] Comment on above: IG% - Immature Granu locytes (promyelocytes, myelocytes and metamyelocytes) > 1% indicates that a LEFT SHIFT is Present. L509.8000on 09-25-2024 Syphilis Abs Non-Reactive Normal [facility] Comment on above: Order Comment: Reaso n for Exam: Performed By: #### L 501.9985, L3890.6300, L3890.6100, L500.4050, L3890.6005, L509.8000, L501.9520, L100.0100, L509.4005, BTS ####[facility] [address] [place], [address] Laboratory - Chemistry and C hemistry - challengeOrdered By: Magalys Mclaughlin on 09-25-2024 AST [Catalytic activity/Vol] 10 U/L Low 15-37 [facility] Lymphocytes Auto (Unsp spec) [#/Vol]Ordered By: Magalys Mclaughlin on 09-25-2024 Lymphocytes (Bld) [#/Vol] 2.79 10*3/uL 0.83-4.51 [facility] Lymphocytes/100 WBC Auto (Un sp spec)Ordered By: Magalys Mclaughlin on 09-25-2024 Lymphocytes/100 WBC (Bld) 24.6 % 19-41 [facility] MCV (mean corpuscular volume ) determinationOrdered By: Magalys Mclaughlin on 09-25-2024 MCV (RBC) [Entitic vol] 88.2 fL 81-99 [facility] Mean corpuscular hemoglobin (MCH) determinationOrdered By: Magalyskristy Mclaughlin on 09-25-2024 MCH (RBC) [Entitic mass] 30.0 pg 27.0-32.0 [facility] Mean corpuscular hemoglobin concentration (MCHC) determinationOrdered By: Magalys Mclaughlin on 09-25-2024 MCHC (RBC) [Mass/Vol] 34.0 g/dL 32-36 [facility] Mean platelet volume determi nationOrdered By: Magalys Mclaughlin on 09-25-2024 Platelet mean volume (Bld) [Entitic vol] 9.7 fL 6.2-12.0 [facility] Monocyte percentageOrdered B y: Magalys Mclaughlin on 09-25-2024 Monocytes/100 WBC (Bld) 4.9 % 0-10 [facility] Neisseria gonorrhoeae nuclei c acid detection by amplified probe techniqueOrdered By: Magalys Mclaughlin on 09-25-2024 N. gonorrhoeae DNA NENITA+probe Ql (Unsp spec) Negative Negative [facility] Comment on above: Performed at: = - [facility] [address], [place] [id number] Director: Erna Frar MD, Phone: [phone] Neutrophil percentageOrdered By: Magalys Mclaughlin on 09-25-2024 Neutrophils/100 WBC (Bld) 65.5 % 47-70 [facility] Nucleated red blood cell per centageOrdered By: Magalys Mclaughlin on 09-25-2024 Nucleated RBC/100 WBC (Bld) [Ratio] 0 % 0-5 [facility] [employer] Office Visit Reporton 09-25-2024 [employer] Office Visit Report [facility] [address], [address] [place] [address] OFFICE VISIT Date of Service: 09/25/24 MR#: [id number] Acct: [id number] Name: TASIA ALMAGUER Rep #: [id number] : 1990 Provider: Dr. 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 Normal [facility] Platelet countOrdered By: Feliciano jiangmagdi Arnoldo on 09-25-2024 Platelets (Bld) [#/Vol] 307 10*3/uL 150-450 [facility] Potassium measurementOrdered By: Magalys Mclaughlin on 09-25-2024 Potassium [Moles/Vol] 4.0 mmol/L 3.5-5.1 [facility] Protein+Creatinine Ratio,Uri neon 09-25-2024 PROT:CRE RATIO 228 mg/g CRE High 0-200 [facility] Comment on above: Performed By: #### M 100.2200, L501.0900, L7000.1800 #### [facility] [address] [place], [address] Protein (U) [Mass/Vol] 10.0 mg/dL Normal <11.9 [facility] Comment on above: Performed By: #### M 100.2200, L501.0900, L7000.1800 #### [facility] [address] [place], [address] UR CREAT 43.80 mg/dL Normal NO RANGE EST. [facility] Comment on above: Performed By: #### M 100.2200, L501.0900, L7000.1800 #### [facility] [address] [place], [address] Protein/Creatinine (U) [Mass ratio]Ordered By: Magalys Mclaughlin on 09-25-2024 Urine Protein/Creatinine Ratio 228 mg/g CRE High 0-200 [facility] RBC Auto (Bld) [#/Vol]Ordere d By: Magalys Mclaughlin on 09-25-2024 RBC (Bld) [#/Vol] 4.83 10*6/uL 4.2-5.[address] [facility] Random urine protein measure mentOrdered By: Magalys Mclaughlin on 09-25-2024 Protein (U) [Mass/Vol] 10.0 mg/dL 0.0-11.8 [facility] Rubella IgGon 09-25-2024 Rubella IgG Reactive Normal Nonreactive [facility] Comment on above: Order Comment: Reaso n for Exam: Result Comment: Anti body Results Interpretation of Immune Status Non Reactive Presumed Non-Immune Equivocal Equivocal Reactive Presumed Immune Performed By: #### L 501.9985, L3890.6300, L3890.6100, L500.4050, L3890.6005, L509.8000, L501.9520, L100.0100, L509.4005, BTS ####[facility] [id number] [place], [address] Rubella immune status IgGOrd ered By: Magalys Mclaughlin on 09-25-2024 Rubella IgG Antibody Reactive Nonreactive [facility] Comment on above: Antibody Results Int erpretation of Immune Status Non Reactive Presumed Non-Immune Equivocal Equivocal Reactive Presumed Immune Serum Treponema species anti body detectionOrdered By: Magalys Mclaughlin on 09-25-2024 Treponema sp Ab Ql (S) Non-Reactive [facility] Serum anion gap measurementO rdered By: Magalys Mclaughlin on 09-25-2024 Anion gap [Moles/Vol] 8 mmol/L 5-15 [facility] Serum globulin measurementOr dered By: Magalys Mclaughlin on 09-25-2024 Globulin (S) [Mass/Vol] 4.3 g/dL High 2.2-4.2 [facility] Serum or plasma alanine arteaga otransferase (ALT) measurementOrdered By: Magalys Mclaughlin on 09-25-2024 ALT [Catalytic activity/Vol] 19 U/L 13-56 [facility] Serum or plasma albumin lisa urement (mass/volume)Ordered By: Magalys Mclaughlin on 09-25-2024 Albumin [Mass/Vol] 3.3 g/dL 3.2-5.0 [facility] Serum or plasma alkaline ruthie sphatase measurementOrdered By: Magalys Mclaughlin on 09-25-2024 ALP [Catalytic activity/Vol] 108 U/L 45-117 [facility] Serum or plasma calcium lisa urement (mass/volume)Ordered By: Magalys Mclaughlin on 09-25-2024 Calcium [Mass/Vol] 9.5 mg/dL 8.5-10.1 [facility] Serum or plasma creatinine m easurement (mass/volume)Ordered By: Magalys Mclaughlin on 09-25-2024 Creatinine [Mass/Vol] 0.66 mg/dL 0.55-1.02 [facility] Comment on above: The validity of the calculated GFR & GFRAA in patients over 70 years has not been determined. Clinical correlation is essential. Serum or plasma thyroid stim ulating hormone (TSH) measurement (units/volume)Ordered By: Magalys Mclaughlin on 09-25-2024 TSH Qn 0.942 uIU/mL 0.358-3.740 [facility] Serum or plasma urea nitroge n measurement (mass/volume)Ordered By: Magalys Mclaughlin on 09-25-2024 Urea nitrogen [Mass/Vol] 8 mg/dL 7-18 [facility] Sodium levelOrdered By: Ruth Mclaughlin on 09-25-2024 Sodium [Moles/Vol] 136 mmol/L 136-145 [facility] TSH QnOrdered By: Magalys roach on 09-25-2024 Thyroid Stimulating Hormone (TSH) 0.942 uIU/mL 0.358-3.740 [facility] Total proteinOrdered By: Eunice Mclaughlin on 09-25-2024 Protein [Mass/Vol] 7.6 g/dL 6.4-8.2 [facility] Treponema sp Ab Ql (S)Ordere d By: Magalys Mclaughlin on 09-25-2024 Syphilis Total Antibody Non-Reactive [facility] Type AND Screenon 09-25-2024 Ab SCREEN GEL Negative Normal [facility] Comment on above: Order Comment: PN Performed By: #### L 501.9985, L3890.6300, L3890.6100, L500.4050, L3890.6005, L509.8000, L501.9520, L100.0100, L509.4005, BTS ####[facility] [id number] [place], [place], [id number] ABO and Rh group Nom (Bld) Blood group O Rh(D) positive Normal [facility] Comment on above: Order Comment: PN Performed By: #### L 501.9985, L3890.6300, L3890.6100, L500.4050, L3890.6005, L509.8000, L501.9520, L100.0100, L509.4005, BTS ####[facility] [id number] [place], [place], [id number] Urine creatinine measurement (mass/volume)Ordered By: Magalys Mclaughlin on 09-25-2024 Creatinine (U) [Mass/Vol] 43.80 mg/dL NO RANGE EST. [facility] Urine cultureOrdered By: Eunice Mclaughlin on 09-25-2024 Bacteria identified Cx Nom (U) Streptococcus agalactiae (B) Abnormal [facility] Bacteria identified Cx Nom (U) Positive Abnormal [facility] Bacteria identified Cx Nom (U) Streptococcus agalactiae (B) Abnormal [facility] Bacteria identified Cx Nom (U) Positive Abnormal [facility] Urine protein/creatinine mas s ratioOrdered By: Magalys Mclaughlin on 09-25-2024 Protein/Creatinine (U) [Mass ratio] 228 mg/g CRE High 0-200 [facility] White blood cell (WBC) count Ordered By: Magalys Mclaughlin on 09-25-2024 WBC (Bld) [#/Vol] 11.3 10*3/uL High 4.4-11.[address] [facility] CNOVon 06-09-2023 CNOV Office Visit (ENDOAV) ---- NIDHI ALMAGUER ([id number]) 1990 F Date Time Provider Department 06/09/23 [...] LVESD 5) Other pertinent labs reviewed in [facility] PHYSICAL EXAM: BP 138/95 Pulse 118 [...] MONOFILAMENT: - If done, is updated in tab Yossi Alcazar V, MD 06/09/2023 11:[address] Eulogio Cagle CNP See one of them every 3 months [...] tag. C (more content not included)... Normal [facility] HEMOGLOBIN A1C (POC)on 06-09 HbA1c (Bld) [Mass fraction] 11.0 % Abnormal 4.2 - 5.6 % [facility] HbA1c (Bld) [Mass fraction]o n 09-10-2022 Interpretation and review of laboratory results Abnormal [facility] POC Glycosylated Hemoglobin (Hb A1C)on 09-10-2022 HbA1c (Bld) [Mass fraction] 11.3 % Abnormal 4.0 - 6.0 % [facility] Comprehensive metabolic 2000 panelon 12-23-2021 Albumin [Mass/Vol] 3.2 g/dL 3.2 - 5.2 g/dL [facility] ALP [Catalytic activity/Vol] 109 U/L 40 - 140 U/L [facility] ALT [Catalytic activity/Vol] 29 U/L 14 - 65 U/L [facility] Anion gap [Moles/Vol] 15 mmol/L 10 - 20 mmol/L [facility] AST [Catalytic activity/Vol] 20 U/L 0 - 45 U/L [facility] Bilirubin [Mass/Vol] 0.4 mg/dL 0 - 1.3 mg/dL O [facility] Calcium [Mass/Vol] 8.9 mg/dL 8.4 - 10. 2 mg/dL [facility] Chloride [Moles/Vol] 105 mmol/L 98 - 10 8 mmol/L [facility] Creatinine [Mass/Vol] 0.71 mg/dL 0.40 - 1.10 mg/dL [facility] GFR/1.73 sq M.predicted CKD-EPI (S/P/Bld) [Vol rate/Area] 115 - PINF [facility] Glucose [Mass/Vol] 304 mg/dL High 65 - 99 mg/dL [facility] HCO3 [Moles/Vol] 22 mmol/L 21 - 32 mmol/L [facility] Potassium [Moles/Vol] 4.4 mmol/L 3.5 - 5.1 mmol/L [facility] Protein [Mass/Vol] 7.1 g/dL 6 - 8 g/dL [facility]th Sodium [Moles/Vol] 138 mmol/L 135 - 145 mmol/L [facility] Urea nitrogen [Mass/Vol] 9 mg/dL 8 - 25 mg/d L [facility] Urea nitrogen/Creatinine [Mass ratio] 12.7 mg/mg 10 - 20 [facility] The eGFR should be used for monitoring renal function only and not for medication dosing. [facility] HbA1c (Bld) [Mass fraction]o n 12-23-2021 Interpretation and review of laboratory results Abnormal [facility] Laboratory - Hematology and Cell countson 12-23-2021 HbA1c (Bld) [Mass fraction] 9.6 % Abnormal 4 - 6 % [facility] Lipid 1996 panelon 2 Cholesterol [Mass/Vol] 195 mg/dL 100 - 199 mg/dL [facility] Comment on above: National Cholesterol Education Program Guidelines: Cholesterol Desirable: <200 mg/dL Borderline High: 200-239 mg/dL High: greater than or equal to 240 mg/dL Cholesterol in HDL [Mass/Vol] 58 mg/dL 40 - 59 mg/dL [facility] Comment on above: National Cholesterol Education Program Guidelines: HDL Cholesterol Low: <40 mg/dL Near Optimal: 40-59 mg/dL High: greater than or equal to 60 mg/dL Cholesterol in LDL [Mass/Vol] 73 mg/dL 10 - 130 mg/dL [facility] Comment on above: National Cholesterol Education Program Guidelines: LDL Cholesterol Optimal: <100 mg/dL Near Optimal/above Optimal: 100-129 mg/dL Borderline High: 130-159 mg/dL High: 160-189 mg/dL Very High: greater than or equal to 190 mg/dL Cholesterol non HDL [Mass/Vol] 137 mg/dL [facility] Comment on above: National Cholesterol Education Program Guidelines: NON HDL Cholesterol Desirable: <130 mg/dL Borderline High: 130-159 mg/dL High: 160-189 mg/dL Very High: > or = 190 mg/dL Cholesterol.total/Choles terol in HDL [Mass ratio] 3.4 {ratio} ratio [facility] Comment on above: Female Cholesterol/H DL Ratio: Average risk: 4.4 1/2 average risk: 3.3 2 x average risk: 7.1 Triglyceride [Mass/Vol] 322 mg/dL High 30 - 150 mg/ dL [facility] Comment on above: National Cholesterol Education Program Guidelines: Triglyceride Normal: <150 mg/dL Borderline High: 150-199 mg/dL High: 200-499 mg/dL Very High: greater than or equal to 500 mg/dL No Panel Informationon 12-23 Interpretation and review of laboratory results Abnormal [facility] TSH DL <= 0.005 mIU/L Qnon 0 12-23-2021 Interpretation and review of laboratory results Normal [facility] TSH Qn 0.63 m[IU]/L [facility] ESTROGENS, TOTALon 8 ESTROGENS, TOTAL 257 pg/mL Normal [facility] Comment on above: Result Comment: (NOT E) Prepubertal <40 Female Cycle: 1-10 Days 61 - 394 11-20 Days 122 - 437 21-30 Days 156 - 350 Post-Menopausal <40 HMG Treatment for Ovulation Induction: 400 - 800PERFORMED AT [facility] Performed By: #### R TSH ####Testing performed at [address] [address]#### LTEST, LLH, LFSH ####Testing performed at [address] [address]#### LESTS ####Testing performed at [facility] FSHon 06-07-2018 FSH 6.7 mIU/mL Normal [facility] Comment on above: Result Comment: (NOT E) Adult Female: Follicular phase 3.5 - 12.5 Ovulation phase 4.7 - 21.5 Luteal phase 1.7 - 7.7 Postmenopausal 25.8 - 134.8PERFORMED AT [facility] Performed By: #### R TSH ####[place] [address]#### LTEST, LLH, LFSH ####Testing performed at [address] [place] [address]#### LESTS ####Testing performed at [facility] LUTEINIZING HORMONEon 2017 LH 23.7 mIU/mL Normal [facility] Comment on above: Result Comment: (NOT E) Adult Female: Follicular phase 2.4 - 12.6 Ovulation phase 14.0 - 95.6 Luteal phase 1.0 - 11.4 Postmenopausal 7.7 - 58.5PERFORMED AT [facility] Performed By: #### R TSH ####[place] [address]#### LTEST, LLH, LFSH ####Testing performed at [address] [place] [address]#### LESTS ####Testing performed at [facility] TESTOSTERONEon 06-07-2018 Testosterone mass conc 36 ng/dL Normal 8-48 [facility] Comment on above: Result Comment: PERF ORMED AT [facility] Performed By: #### R TSH ####Testing performed at [address] [address]#### LTEST, LLH, LFSH ####Testing performed at [address] [place] [address]#### LESTS ####Testing performed at [facility] TSH,REFLEX FREE T4on 018 TSH,REFLEX FREE T4 1.037 uIU/ML Normal 0.45-5.33 [facility] Comment on above: Performed By: #### R TSH ####Testing performed at [address] [address]#### LTEST, LLH, LFSH ####Testing performed at [address] [place] [address]#### LESTS ####Testing performed at [facility] PAP IG,RFX HPV ASCUon 2017 DIAGNOSIS: Comment [facility] Comment on above: Result Comment: NEGA TIVE FOR INTRAEPITHELIAL LESION AND MALIGNANCY. IGLBP CPT CODE AUTOMATION Comment [facility] Comment on above: Result Comment: (NOT E)This liquid based ThinPrep(R) pap test was screened with theuse of an image guided system. NOTE: Comment [facility] Comment on above: Result Comment: (NOT E)The Pap smear is a screening test designed to aid in the detection ofpremalignant and malignant conditions of the uterine cervix. It isnot a diagnostic procedure and should not be used as the sole meansof detecting cervical cancer. Both false-positive and false-negativereports do occur. PERFORMED BY: Comment [facility] Comment on above: Result Comment: Madhavi Estrada Manager Track (ASCP) SPECIMEN ADEQUACY: Comment [facility] Comment on above: Result Comment: (NOT E)Satisfactory for evaluation. Endocervical and/or squamous metaplasticcells (endocervical component) are present. . Comment [facility] Comment on above: Result Comment: (NOT E)The HPV DNA reflex criteria were not met with this specimen resulttherefore, no HPV testing was performed.Dates / Results....[id number] #No. of containers..01 ThinPrep VialPERFORMED AT [facility] . . [facility] Vital Signs Date Time Vital Sign Value Performing Clinician Facility 04-03-2025 16:52-0400 Diastolic blood pressure 83 mm[Hg] No Primary Care Physician [facility] 04-03-2025 16:52-0400 Heart rate 108 /min No Primary Care Physician [facility] 04-03-2025 16:52-0400 Systolic blood pressure 128 mm[Hg] No Primary Care Physician [facility] 04-03-2025 16:42-0400 Body height 170.18 cm No Primary Care Physician [facility] 04-03-2025 16:42-0400 Body mass index (BMI) [Ratio] 45.8 kg/m2 No Primary Care Physician [facility] 04-03-2025 16:42-0400 Body weight 132.7 kg No Primary Care Physician [facility] 03-23-2025 10:41-0400 Body height 170.18 cm No Primary Care Physician [facility] 03-23-2025 10:41-0400 Body mass index (BMI) [Ratio] 45.4 kg/m2 No Primary Care Physician [facility] 03-23-2025 10:41-0400 Body weight 131.71 kg No Primary Care Physician [facility] 03-23-2025 10:41-0400 Diastolic blood pressure 83 mm[Hg] No Primary Care Physician [facility] 03-23-2025 10:41-0400 Systolic blood pressure 128 mm[Hg] No Primary Care Physician [facility] 03-16-2025 14:58-0400 Diastolic blood pressure 67 mm[Hg] No Primary Care Physician [facility] 03-16-2025 14:58-0400 Heart rate 107 /min No Primary Care Physician [facility] 03-16-2025 14:58-0400 Systolic blood pressure 111 mm[Hg] No Primary Care Physician [facility] 03-16-2025 14:57-0400 Body temperature 97.3 [degF] No Primary Care Physician [facility] 03-16-2025 14:57-0400 Respiratory rate 18 /min No Primary Care Physician [facility] 03-16-2025 14:27-0400 Body height 170.18 cm No Primary Care Physician [facility] 03-16-2025 14:27-0400 Body mass index (BMI) [Ratio] 45.4 kg/m2 No Primary Care Physician [facility] 03-16-2025 14:27-0400 Body weight 131.54 kg No Primary Care Physician [facility] 03-16-2025 13:31-0400 Body height 170.18 cm No Primary Care Physician [facility] 03-16-2025 13:31-0400 Body mass index (BMI) [Ratio] 45.4 kg/m2 No Primary Care Physician [facility] 03-16-2025 13:31-0400 Body weight 131.65 kg No Primary Care Physician [facility] 03-16-2025 13:31-0400 Diastolic blood pressure 79 mm[Hg] No Primary Care Physician [facility] 03-16-2025 13:31-0400 Systolic blood pressure 120 mm[Hg] No Primary Care Physician [facility] 03-09-2025 13:43-0400 Body height 170.18 cm No Primary Care Physician [facility] 03-09-2025 13:43-0400 Body mass index (BMI) [Ratio] 45.1 kg/m2 No Primary Care Physician [facility] 03-09-2025 13:43-0400 Body weight 130.69 kg No Primary Care Physician [facility] 03-09-2025 13:43-0400 Diastolic blood pressure 86 mm[Hg] No Primary Care Physician [facility] 03-09-2025 13:43-0400 Systolic blood pressure 133 mm[Hg] No Primary Care Physician [facility] 03-02-2025 07:01-0400 Body height 170.2 cm Zita Randolph MD Work Phone: [facility] 03-02-2025 07:01-0400 Body mass index (BMI) [Ratio] 44.64 kg/m2 Zita Randolph MD Work Phone: [facility] 03-02-2025 07:01-0400 Body temperature 97.81 [degF] Zita Randolph MD Work Phone: [facility] 03-02-2025 07:01-0400 Body weight 129.28 kg Zita Randolph MD Work Phone: [facility] 03-02-2025 07:01-0400 Diastolic blood pressure 86 mm[Hg] Zita Randolph MD Work Phone: [facility] 03-02-2025 07:01-0400 Heart rate 106 /min Zita Randolph MD Work Phone: [facility] 03-02-2025 07:01-0400 Respiratory rate 16 /min Zita Randolph MD Work Phone: [facility] 03-02-2025 07:01-0400 SaO2% (BldA) [Mass fraction] 97 % Zita Randolph MD Work Phone: [facility] 03-02-2025 07:01-0400 Systolic blood pressure 127 mm[Hg] Zita Randolph MD Work Phone: [facility] 02-26-2025 13:25-0400 Body height 170.18 cm No Primary Care Physician [facility] 02-26-2025 13:25-0400 Body mass index (BMI) [Ratio] 44.9 kg/m2 No Primary Care Physician [facility] 02-26-2025 13:25-0400 Body weight 129.95 kg No Primary Care Physician [facility] 02-26-2025 13:25-0400 Diastolic blood pressure 79 mm[Hg] No Primary Care Physician [facility] 02-26-2025 13:25-0400 Systolic blood pressure 133 mm[Hg] No Primary Care Physician [facility] 02-12-2025 13:48-0400 Body height 170.18 cm No Primary Care Physician [facility] 02-12-2025 13:39-0400 Body mass index (BMI) [Ratio] 44.9 kg/m2 No Primary Care Physician [facility] 02-12-2025 13:39-0400 Body weight 130.18 kg No Primary Care Physician [facility] 02-12-2025 13:39-0400 Diastolic blood pressure 82 mm[Hg] No Primary Care Physician [facility] 02-12-2025 13:39-0400 Systolic blood pressure 122 mm[Hg] No Primary Care Physician [facility] 01-17-2025 15:47-0400 Body height 170.18 cm No Primary Care Physician [facility] 01-17-2025 15:42-0400 Body mass index (BMI) [Ratio] 43.4 kg/m2 No Primary Care Physician [facility] 01-17-2025 15:42-0400 Body weight 125.64 kg No Primary Care Physician [facility] 01-17-2025 15:42-0400 Diastolic blood pressure 78 mm[Hg] No Primary Care Physician [facility] 01-17-2025 15:42-0400 Systolic blood pressure 118 mm[Hg] No Primary Care Physician [facility] 01-01-2025 09:01-0400 Body height 170.18 cm No Primary Care Physician [facility] 01-01-2025 09:01-0400 Body mass index (BMI) [Ratio] 43.4 kg/m2 No Primary Care Physician [facility] 01-01-2025 09:01-0400 Body weight 125.87 kg No Primary Care Physician [facility] 01-01-2025 09:01-0400 Diastolic blood pressure 84 mm[Hg] No Primary Care Physician [facility] 01-01-2025 09:01-0400 Heart rate 104 /min No Primary Care Physician [facility] 01-01-2025 09:01-0400 SaO2% (BldA) [Mass fraction] 98 % No Primary Care Physician [facility] 01-01-2025 09:01-0400 Systolic blood pressure 128 mm[Hg] No Primary Care Physician [facility] 01-01-2025 07:51-0400 Body height 170.2 cm Amador Chacorta DO Work Phone: [facility] 01-01-2025 07:51-0400 Body mass index (BMI) [Ratio] 43.38 kg/m2 Amador Chacorta DO Work Phone: [facility] 01-01-2025 07:51-0400 Body temperature 98.29 [degF] Amador Chacorta DO Work Phone: [facility] 01-01-2025 07:51-0400 Body weight 125.65 kg Amador Chacorta DO Work Phone: [facility] 01-01-2025 07:51-0400 Diastolic blood pressure 83 mm[Hg] Amador Chacorta DO Work Phone: [facility] 01-01-2025 07:51-0400 Heart rate 103 /min Amador Chacorta DO Work Phone: [facility] 01-01-2025 07:51-0400 Respiratory rate 16 /min Amador Chacorta DO Work Phone: [facility] 01-01-2025 07:51-0400 SaO2% (BldA) [Mass fraction] 98 % Amador Chacorta DO Work Phone: [facility] 01-01-2025 07:51-0400 Systolic blood pressure 131 mm[Hg] Amador Chacorta DO Work Phone: [facility] 12-18-2024 15:44-0400 Body height 170.18 cm No Primary Care Physician [facility] 12-18-2024 15:43-0400 Body mass index (BMI) [Ratio] 43.7 kg/m2 No Primary Care Physician [facility] 12-18-2024 15:43-0400 Body weight 126.66 kg No Primary Care Physician [facility] 12-18-2024 15:43-0400 Diastolic blood pressure 82 mm[Hg] No Primary Care Physician [facility] 12-18-2024 15:43-0400 Systolic blood pressure 122 mm[Hg] No Primary Care Physician [facility] 11-20-2024 09:24-0400 Body mass index (BMI) [Ratio] 42.3 kg/m2 No Primary Care Physician [facility] 11-20-2024 09:24-0400 Body weight 122.46 kg No Primary Care Physician [facility] 11-20-2024 09:24-0400 Diastolic blood pressure 81 mm[Hg] No Primary Care Physician [facility] 11-20-2024 09:24-0400 Systolic blood pressure 129 mm[Hg] No Primary Care Physician [facility] 10-23-2024 14:32-0400 Body mass index (BMI) [Ratio] 41.7 kg/m2 No Primary Care Physician [facility] 10-23-2024 14:32-0400 Body weight 120.82 kg No Primary Care Physician [facility] 10-23-2024 14:32-0400 Diastolic blood pressure 92 mm[Hg] No Primary Care Physician [facility] 10-23-2024 14:32-0400 Systolic blood pressure 141 mm[Hg] No Primary Care Physician [facility] 09-25-2024 13:59-0500 Body height 170.18 cm No Primary Care Physician [facility] 09-25-2024 13:59-0500 Body mass index (BMI) [Ratio] 40.7 kg/m2 No Primary Care Physician [facility] 09-25-2024 13:59-0500 Body weight 118.04 kg No Primary Care Physician [facility] 09-25-2024 13:59-0500 Diastolic blood pressure 105 mm[Hg] No Primary Care Physician [facility] 09-25-2024 13:59-0500 Heart rate 119 /min No Primary Care Physician [facility] 09-25-2024 13:59-0500 SaO2% (BldA) [Mass fraction] 98 % No Primary Care Physician [facility] 09-25-2024 13:59-0500 Systolic blood pressure 156 mm[Hg] No Primary Care Physician [facility] 09-25-2024 08:42-0500 Body mass index (BMI) [Ratio] 40.7 kg/m2 No Primary Care Physician [facility] 09-25-2024 08:42-0500 Body weight 117.99 kg No Primary Care Physician [facility] 09-25-2024 08:42-0500 Diastolic blood pressure 93 mm[Hg] No Primary Care Physician [facility] 09-25-2024 08:42-0500 Systolic blood pressure 146 mm[Hg] No Primary Care Physician [facility] 01-10-2024 16:02-0400 Body height 170.2 cm Zita Randolph MD Work Phone: [facility] 01-10-2024 16:02-0400 Body mass index (BMI) [Ratio] 42.13 kg/m2 Zita Randolph MD Work Phone: [facility] 01-10-2024 16:02-0400 Body temperature 98.01 [degF] Zita Randolph MD Work Phone: [facility] 01-10-2024 16:02-0400 Body weight 122.02 kg Zita Randolph MD Work Phone: [facility] 01-10-2024 16:02-0400 Diastolic blood pressure 68 mm[Hg] Zita Randolph MD Work Phone: [facility] 01-10-2024 16:02-0400 Heart rate 125 /min Zita Randolph MD Work Phone: [facility] 01-10-2024 16:02-0400 Respiratory rate 16 /min Zita Randolph MD Work Phone: [facility] 01-10-2024 16:02-0400 SaO2% (BldA) [Mass fraction] 98 % Zita Randolph MD Work Phone: [facility] 01-10-2024 16:02-0400 Systolic blood pressure 123 mm[Hg] Zita Randolph MD Work Phone: [facility] 06-09-2023 10:22-0500 Body weight 123.65 kg Yossi Castellon MD Work Phone: [facility] 06-09-2023 10:22-0500 Diastolic blood pressure 95 mm[Hg] Yossi Castellon MD Work Phone: [facility] 06-09-2023 10:22-0500 Heart rate 118 /min Yossi Castellon MD Work Phone: [facility] 06-09-2023 10:22-0500 Systolic blood pressure 138 mm[Hg] Yossi Castellon MD Work Phone: [facility] 09-10-2022 07:59-0500 Body height 170.2 cm Zita Randolph MD Work Phone: [facility] 09-10-2022 07:59-0500 Body mass index (BMI) [Ratio] 40.72 kg/m2 Zita Randolph MD Work Phone: [facility] 09-10-2022 07:59-0500 Body temperature 98.29 [degF] Zita Randolph MD Work Phone: [facility] 09-10-2022 07:59-0500 Body weight 117.94 kg Zita Randolph MD Work Phone: [facility] 09-10-2022 07:59-0500 Diastolic blood pressure 81 mm[Hg] Zita Randolph MD Work Phone: [facility] 09-10-2022 07:59-0500 Heart rate 126 /min Zita Randolph MD Work Phone: [facility] 09-10-2022 07:59-0500 Respiratory rate 16 /min Zita Randolph MD Work Phone: [facility] 09-10-2022 07:59-0500 SaO2% (BldA) [Mass fraction] 98 % Zita Randolph MD Work Phone: [facility] 09-10-2022 07:59-0500 Systolic blood pressure 118 mm[Hg] Zita Randolph MD Work Phone: [facility] 12-23-2021 09:05-0400 Diastolic blood pressure 85 mm[Hg] Zita Randolph MD Work Phone: [facility] 12-23-2021 09:05-0400 Heart rate 113 /min Zita Randolph MD Work Phone: [facility] 12-23-2021 09:05-0400 Systolic blood pressure 155 mm[Hg] Zita Randolph MD Work Phone: [facility] 12-23-2021 09:00-0400 Body height 170.2 cm Zita Randolph MD Work Phone: [facility] 12-23-2021 09:00-0400 Body mass index (BMI) [Ratio] 41.5 kg/m2 Zita Randolph MD Work Phone: [facility] 12-23-2021 09:00-0400 Body temperature 98.91 [degF] Zita Randolph MD Work Phone: [facility] 12-23-2021 09:00-0400 Body weight 120.2 kg Zita Randolph MD Work Phone: [facility] 12-23-2021 09:00-0400 Respiratory rate 16 /min Zita Randolph MD Work Phone: [facility] 12-23-2021 09:00-0400 SaO2% (BldA) [Mass fraction] 98 % Zita Randolph MD Work Phone: [facility] 10-25-2020 12:00-0400 Height 170.2 cm Luz Elenavasiliy Chamorrot [facility] 10-24-2020 12:58-0400 BMI (Body Mass Index) 40.44 kg/m2 Zita Randolph [facility] 10-24-2020 12:58-0400 Body Temperature 98.71 [degF] [facility]2020 12:58-0400 Body weight 117.12 kg [facility] 10-24-2020 12:58-0400 BP Diastolic 78 mm[Hg] [facility] 10-24-2020 12:58-0400 BP Systolic 109 mm[Hg] [facility] 10-24-2020 12:58-0400 Height 170.2 cm [facility] 10-24-2020 12:58-0400 Pulse (Heart Rate) 102 /min [facility] 10-24-2020 12:58-0400 Pulse Oximetry 99 % [facility] 10-24-2020 12:58-0400 Respiratory Rate 16 /min [facility] 10-07-2020 09:12-0500 BP Diastolic 89 mm[Hg] [facility] 10-07-2020 09:12-0500 BP Systolic 153 mm[Hg] [facility] 10-07-2020 09:04-0500 BMI (Body Mass Index) 41.87 kg/m2 [facility] 10-07-2020 09:04-0500 Body Temperature 98.2 [degF] [facility] 10-07-2020 09:04-0500 Body weight 121.25 kg [facility] 10-07-2020 09:04-0500 Height 170.2 cm [facility] 10-07-2020 09:04-0500 Pulse (Heart Rate) 86 /min [facility] 10-07-2020 09:04-0500 Pulse Oximetry 99 % [facility] 10-07-2020 09:04-0500 Respiratory Rate 18 /min [facility] Encounters Encounter Date Encounter Type Care Provider Facility Start: 04-03-2025 End: 04-03-2025 ambulatory No Primary Care Physician -[facility] Start: 04-03-2025 End: 04-03-[address] Mae Reeves MD -[facility] Work Phone: Start: 04-03-[address] Mae Reeves MD -Ultrasound [facility] Work Phone: Start: 04-03-2025 ambulatory Mae Padron lity:[facility] Start: 03-30-[address] Mae Reeves MD -Ultrasound [facility] Work Phone: Start: 03-30-2025 ambulatory Mae Leandro Padron lity:[facility] Start: 03-27-[address] Mae Reeves MD -Ultrasound [facility] Work Phone: Start: 03-27-2025 ambulatory ZITA RANDOLPH Facility: [facility] Start: 03-23-2025 End: 03-23-[address] Mae Reeves MD -[facility] Work Phone: Start: 03-23-2025 End: 03-23-2025 ambulatory No Primary Care Physician -[facility] Start: 03-20-2025 End: 03-20-2025 ambulatory No Primary Care Physician -Ultrasound [facility] Start: 03-20-2025 End: 03-20-[address] Mae Reeves MD -Ultrasound [facility] Work Phone: Start: 03-20-2025 End: 03-20-2025 ambulatory Mae Reeves Facility:[facility] Start: 03-17-2025 ambulatory No Primary Car e Physician Facility:[facility] Start: 03-17-2025 Non-patient / [facility] Start: 03-16-2025 End: 03-16-2025 Patient encounter procedure Tere Xiong CNM -[facility] Work Phone: Start: 03-16-2025 End: 03-16-2025 ambulatory No [facility] Start: 03-16-2025 ambulatory No Primary Car e Physician Facility:[facility] Start: 03-16-2025 Non-patient / Non-visit Veronica Yoel ins CN -[facility] Start: 03-13-2025 End: 03-13-2025 ambulatory No Primary Care Physician -Ultrasound [facility] Start: 03-13-2025 End: 03-13-[address] Mae Reeves MD -Ultrasound [facility] Work Phone: Start: 03-13-2025 End: 03-13-2025 [facility] Start: 03-09-2025 End: 03-09-2025 Patient encounter procedure Tere GUERIN -[facility] Work Phone: Start: 03-09-2025 End: 03-09-2025 ambulatory No Primary Care Physician -[facility] Start: 03-06-2025 End: 03-06-2025 ambulatory No Primary Care Physician -Ultrasound [facility] Start: 03-06-2025 End: 03-06-[address] Mae Reeves MD -Ultrasound [facility] Work Phone: Start: 03-06-2025 End: 03-06-2025 ambulatory Mae Reeves Facility:[facility] Start: 03-02-2025 End: 03-02-20[facility] Start: 03-02-2025 End: 03-02-2025 Office outpatient visit 25 minutes Zita Randolph MD Work Phone: [facility] Comment on above: Hypertension, unspec ified type (Primary Dx); Type 2 diabetes mellitus without complication, unspecified whether mcfp insulin use (HCC); Obesity, morbid, BMI 40.0-49.9 (HCC) Start: 02-26-2025 End: 02-26-2025 Patient encounter procedure Tere Xiong CNM -[facility] Work Phone: Start: 02-26-2025 End: 02-26-2025 ambulatory No Primary Care Physician -[facility] Start: 02-13-2025 End: 02-13-2025 ambulatory [facility] Start: 02-12-2025 End: 02-12-2025 Patient encounter procedure Rebecca PAN -[facility] Work Phone: Start: 02-12-2025 End: 02-12-2025 ambulatory No Primary Care Physician -[facility] Start: 02-12-2025 End: 02-12-2025 ambulatory No Primary Care Physician Facility:[facility] Start: 01-17-2025 End: 01-17-[address] Mae Reeves MD -[facility] Work Phone: Start: 01-17-2025 End: 01-17-2025 ambulatory No Primary Care Physician [facility] Work Phone: Start: 01-11-2025 End: 01-11-2025 ambulatory MD NO PRIMARY CARE [facility] Start: 01-01-2025 End: 01-01-[address] Theodore Dunne MD -[facility] Work Phone: Start: 01-01-2025 End: 01-01-2025 ambulatory No Primary Care Physician [facility] Work Phone: Start: 01-01-2025 End: 01-01-2025 ambulatory AMADOR LUNA [facility] Start: 01-01-2025 End: 01-01-2025 Office outpatient visit 25 minutes Amador Luna DO Work Phone: [facility] Comment on above: Acute otitis media, unspecified otitis media type (Primary Dx) Start: 12-18-2024 End: 12-18-[address] Magalys Stoner DO -[facility] Work Phone: Start: 12-18-2024 End: 12-18-2024 ambulatory No Primary Care Physician [facility] Work Phone: Start: 12-05-2024 End: 12-05-2024 ambulatory MAGALYS RAPHAEL [facility] Start: 11-20-2024 End: 11-20-2024 Patient encounter procedure Tere Xiong CNM -[facility] Work Phone: Start: 11-20-2024 End: 11-20-2024 ambulatory No Primary Care Physician Facility:[facility] Start: 11-20-2024 End: 11-20-2024 ambulatory No Primary Care Physician Facility:[facility] Start: 11-17-2024 End: 11-21-2024 Refill Zita Randolph MD Work Phone: [facility] Comment on above: Type 2 diabetes asuncion itus without complication, unspecified whether intermediate teacher insulin use (HCC) Start: 10-23-2024 End: 10-23-[address] Magalys Stoner DO -[facility] Work Phone: Start: 10-23-2024 End: 10-23-2024 ambulatory No Primary Care Physician Facility:[facility] Start: 09-25-2024 End: 09-25-[address] Theodore Dunne MD -[facility] Work Phone: Start: 09-25-2024 End: 09-25-2024 ambulatory No Primary Care Physician Facility:[facility] Start: 09-25-2024 End: 09-25-[address] Magalys Stoner DO -[facility] Work Phone: Start: 09-25-2024 End: 09-25-2024 ambulatory No Primary Care Physician [facility] Work Phone: Start: 09-25-2024 End: 09-25-2024 ambulatory No Primary Care Physician Facility:[facility] Start: 09-08-2024 Non-patient / Non-visit Malissa umanzor RN -[facility] Work Phone: Start: 09-08-2024 ambulatory No Primary Car e Physician Facility:[facility] Start: 08-10-2024 End: 08-10-2024 Refill Zita Randolph MD Work Phone: [facility] Comment on above: Type 2 diabetes asuncion itus without complication, unspecified whether mcfp insulin use (HCC) Start: 2024 End: 2024 Refill Zita Randolph MD Work Phone: [facility] Comment on above: Type 2 diabetes asuncion itus without complication, unspecified whether intermediate teacher insulin use (HCC) Start: 04-15-2024 End: 04-17-2024 Refill Zita Randolph MD Work Phone: [facility] Comment on above: Type 2 diabetes asuncion itus without complication, unspecified whether mcfp insulin use (HCC) Start: 01-10-2024 End: 01-10-2024 Office outpatient visit 25 minutes Zita Randolph MD Work Phone: [facility] Comment on above: Obesity, morbid, BMI 40.0-49.9 (HCC) (Primary Dx); Primary hypertension; Type 2 diabetes mellitus without complication, unspecified whether mcfp insulin use (HCC); Anxiety and depression; control counseling Start: 09-15-2023 Refill Zita Randolph MD Work Phone: [facility] Comment on above: Anxiety and depressi on Start: 09-14-2023 ambulatory Amalia Cagle APRN.SERVICE CORRESPONDENT Work Phone: Endocrinology Comment on above: Appt 09/15/2023 Start: 09-14-2023 E-mail encounter fro m caregiver Amalia Cagle PRODUCT SAFETY TECHNICAL ASSISTANT.SERVICE CORRESPONDENT Work Phone: [facility] Start: 09-02-2023 ambulatory Yossi vanessa MD Work Phone: Endocrinology Comment on above: Ozempic Start: 06-09-2023 End: 06-09-2023 ambulatory YOSSI ALCAZAR Facility:[facility] Start: 06-09-2023 End: 06-09-2023 Patient encounter procedure Yossi Alcazar MD Work Phone: Endocrinology Comment on above: Type 2 diabetes (HCC ) (Primary Dx); Class 3 severe obesity with serious comorbidity and body mass index (BMI) of 40.0 to 44.9 in adult, unspecified obesity type (HCC); Hyperglycemia due to diabetes mellitus (HCC) Start: 12-31-2022 ambulatory Luz Elena Parisi RD [facility] Start: 09-10-2022 End: 09-10-2022 Office outpatient visit 25 minutes Zita Randolph MD Work Phone: [facility] Comment on above: Hypertension, unspec ified type (Primary Dx); Type 2 diabetes mellitus without complication, unspecified whether mcfp insulin use (HCC); Anxiety and depression Start: 08-06-2022 Refill Zita Randolph MD Work Phone: [facility] Comment on above: Anxiety and depressi on; Type 2 diabetes mellitus without complication, unspecified whether mcfp insulin use (HCC) Start: 08-04-2022 Refill Zita Randolph MD Work Phone: [facility] Comment on above: Type 2 diabetes asuncion itus without complication, unspecified whether intermediate teacher insulin use (HCC) Start: 02-20-2022 Refill Zita Randolph MD Work Phone: [facility] Comment on above: Type 2 diabetes asuncion itus without complication, unspecified whether mcfp insulin use (HCC) Start: 01-20-2022 Refill Zita Randolph MD Work Phone: [facility] Comment on above: Type 2 diabetes asuncion itus without complication, unspecified whether mcfp insulin use (HCC) Start: 12-23-2021 End: 12-27-2021 ambulatory ZITA RANDOLPH [facility] Start: 12-23-2021 End: 12-23-2021 Office outpatient visit 40 minutes Zita Randolph MD Work Phone: [facility] Comment on above: Elevated BP without diagnosis of hypertension (Primary Dx); Type 2 diabetes mellitus without complication, unspecified whether mcfp insulin use (HCC); Obesity, morbid, BMI 40.0-49.9 (HCC); Anxiety and depression Start: 07-17-2021 Refill Sue Stevens MA [facility] Start: 03-12-2021 End: 03-12-2021 Documentation procedure Jaci Diane RN [facility] Start: 01-16-2021 End: 01-16-2021 Refill Shavon Grady RN [facility] Start: 01-08-2021 End: 01-08-2021 Refill Zita Randolph MD Work Phone: [facility] Start: 12-16-2020 End: 12-16-2020 Refill Zita Randolph MD Work Phone: [facility] Start: 11-25-2020 End: 11-25-2020 Refill Shavon Grady RN [facility] Start: 10-31-2020 End: 10-31-2020 Refill Zita Gutierrezlex Randolph Work Phone: [facility] Comment on above: Type 2 diabetes asuncion itus without complication, unspecified whether mcfp insulin use (HCC) Start: 10-25-2020 End: 10-25-2020 Telemedicine consultation with patient Zita Bradshawef Work Phone: [facility] Comment on above: Type 2 diabetes asuncion itus without complication, unspecified whether intermediate teacher insulin use (HCC) Start: 10-24-2020 End: 10-24-2020 Office outpatient visit 25 minutes Zita Bradshawef Work Phone: [facility] Comment on above: Elevated BP without diagnosis of hypertension (Primary Dx); Type 2 diabetes mellitus without complication, unspecified whether mcfp insulin use (HCC); Anxiety and depression Start: 10-17-2020 End: 10-17-2020 Orders Only Sade Cueva Work Phone: [facility] Start: 10-08-2020 End: 10-08-2020 Telephone encounter Zita Randolph Work Phone: [facility] Start: 10-07-2020 End: 10-07-2020 Office outpatient new 45 minutes Zita Randolph Work Phone: [facility] Comment on above: Encounter to [facility] (Primary Dx); Anxiety and depression; Obesity, morbid, BMI 40.0-49.9 (HCC); Elevated BP without diagnosis of hypertension Start: 06-15-2018 End: 06-15-2018 Telephone encounter Franchesca Chu Work Phone: [facility] [employer] Comment on above: Advice Only Start: 06-06-2018 Patient encounter procedure [facility] Start: 06-06-2018 Patient encounter procedure [facility] Start: 11-01-2017 Encounter for gynecological examination (general) (routine) without abnormal findings [facility] Start: 11-01-2017 Patient encounter procedure [facility] Encounter for gynecological examination (general) (routine) without abnormal findings [facility] Procedures Date Procedure Procedure Detail Performing Clinician Start: 04-03-2025 Ultrasonography for biophysical profile without non-stress testing No Primary Care Physician Start: 03-30-2025 Ultrasonography for biophysical profile without non-stress testing No Primary Care Physician Start: 03-27-2025 Ultrasonography for biophysical profile without non-stress testing No Primary Care Physician Start: 03-20-2025 Ultrasonography for biophysical profile without [...] AFP MoM 0.55 [place] [id number] Interpretation Interpretation: Screen Negative This result is [...] Customer Services to discuss available options. The [employer] recommends amniocentesis be offered to women age 35 and older. Comment: Donna Berry, Ph.D., [facility] Director References: Available Upon Request. Multiples Of Median Cutoffs For AFP Elevations Jones 2.5 Black 2.8 IDD 2.0 Twins 4.5 Abbreviation Definitions IDD - Insulin Dep Diabetes OSBR - Open Spina Bifida Risk For further inquiries contact [facility] at [phone]. This test was developed and its performance characteristics determined by [employer]. It has not been cleared or approved by the Food and Drug Administration. TESTING PERFORMED AT [facility]. ORIGINAL REPORT ON FILE IN LAB [...] or 75+ (1 - 1-dose 75+ series) [facility] Start: 02-12-2035 Tetanus vaccination Tetanus: Every 1 0yrs [facility] Start: 03-31-2031 Tetanus vaccination Tetanus: Every 1 0yrs [facility] Start: 03-31-2031 Urine microalbumin profile DTaP,Tdap,Td Vaccine (4 - Td or Tdap) [facility] Start: 08-07-2026 Screening for malign ant neoplasm of cervix [facility] Start: 03-02-2026 Depression screening using PHQ-9 (Patient Health Questionnaire 9) score Depression Screening/Follow-Up (PHQ-2/9) [facility] Start: 06-22-2025 End: 06-22-2025 Patient encounter procedure 06/22/2025 8:40 AM EST Office Visit [facility] [address] [place] [id number] Zita Randolph MD [address] [address] [facility] Start: 04-13-2025 ambulatory Ambulatory Facility:[facility] Start: 04-10-2025 ambulatory Ambulatory Facility:[facility] Start: 04-06-2025 ambulatory Ambulatory Facility:[facility] Start: 04-03-2025 Nonstress test [facility] Start: 04-03-2025 Obstetric monitoring [facility] Start: 04-03-2025 [facility] Start: 04-03-2025 Vital signs measurements [facility] Start: 04-03-2025 Ultrasound scan for growth [facility] Start: 04-03-2025 Patient discharge [facility] Start: 04-02-2025 Influenza vaccination [facility] Start: 04-02-2025 Respiratory Syncytia l Virus Immunization: Risk, 60-74 Risk, or 75+ (1 - Risk 1-dose series) Respiratory Syncytial Virus Immunization: Risk, 60-74 Risk, or 75+ (1 - Risk 1-dose series) [facility] Start: 03-25-2025 Hemoglobin A1c measurement A1C [facility] Start: 03-16-2025 Nonstress test [facility] Start: 03-16-2025 Biophysical pr ofile panel US [facility] Start: 03-16-2025 Obstetric monitoring [facility] Start: 03-16-2025 Ultrasonography for biophysical profile without non-stress testing OB Biophysical Prof W/O NST [facility] Start: 03-16-2025 Vital signs measurements [facility] Start: 03-16-2025 [facility] Start: 03-16-2025 Patient discharge [facility] Start: 03-02-2025 End: 03-02-2025 Patient encounter procedure 03/02/2025 7:00 AM EDT Office Visit [facility] [address] [place] [address] Zita Randolph MD [address] [phone] [facility] Start: 02-12-2025 CBC W Auto Different ial panel - Blood [facility] Start: 02-12-2025 Serologic test for syphilis [facility] Start: 02-12-2025 [facility] Start: 09-27-2024 History and physical examination, annual for health maintenance Wellness Visit [facility] Start: 09-19-2024 End: 09-19-2024 Patient encounter procedure 09/19/2024 2:00 PM EST Office Visit [facility] [address] [place] [address] Zita Randolph MD [address] [place] [address] [facility] Start: 08-07-2024 Screening for malign ant neoplasm of cervix Pap Smear [facility] Start: 07-03-2024 End: 07-03-2024 Patient encounter procedure 07/03/2024 9:20 AM EST Office Visit [facility] [address] [place] [address] [place] [address] [place] [id number] [facility] Start: 04-02-2024 COVID-19 Vaccine ( season) COVID-19 Vaccine ( season) [facility] Start: 04-02-2024 COVID-19 Vaccine ( season) COVID-19 Vaccine ( season) [facility] Start: 04-02-2024 Influenza vaccination [facility] Start: 01-10-2024 End: 01-10-2024 Patient encounter procedure 01/10/2024 4:00 PM EDT Office Visit [facility] [address] [place] [address] Zita Randolph MD [address] [place] [address] [facility] Start: 09-24-2023 History and physical examination, annual for health maintenance Wellness Visit [facility] Start: 09-09-2023 Hemoglobin A1c measurement [facility] Start: 09-09-2023 Hemoglobin A1c/Hemoglobin.total in Blood HbA1C [facility] Start: 08-02-2023 Depression Assessment Depression Ass essment [facility] Start: 06-09-2023 End: 09-08-2023 Comprehensive metabolic 2000 panel - Serum or Plasma COMP METABOLIC PANEL Lab Routine Type 2 diabetes ([facility]) Expected: 06/09/2023, Expires: 09/08/2023 [facility] Work Phone: Comment on above: Expected: 06/09/2023 , Expires: 09/08/2023 Start: 06-09-2023 End: 09-08-2023 Hemoglobin A1c in Blood HGB A1C Lab Routine Type 2 diabetes ([facility]) Expected: 06/09/2023, Expires: 09/08/2023 [facility] Work Phone: Comment on above: Expected: 06/09/2023 , Expires: 09/08/2023 Start: 04-02-2023 COVID-19 Vaccine ( season) COVID-19 Vaccine ( season) [facility] Start: 04-02-2023 Influenza vaccination [facility] Start: 03-24-2023 Hemoglobin A1c measurement A1C [facility] Start: 01-12-2023 End: 01-12-2023 Patient encounter procedure 01/12/2023 11:20 AM EDT Office Visit [facility] [address] [place] [address] Zita Randolph MD [address] [address] [facility] Start: 12-23-2022 Depression screening using PHQ-9 (Patient Health Questionnaire 9) score Depression Screening/Follow-Up (PHQ-2/9) [facility] Start: 12-23-2022 Hepatitis B surface antibody level LDL Cholesterol [facility] Start: 12-23-2022 Urine screening for protein eGFR Diabetes [facility] Start: 12-22-2022 End: 12-22-2022 Patient encounter procedure 12/22/2022 Office Visit Primary Care Zita Randolph MD [address] [phone] [facility] Start: 12-08-2022 Hemoglobin A1c measurement A1C [facility] Start: 11-01-2022 HPV Testing HPV Testing [facility] Start: 11-01-2022 Pap Testing Pap Testing [facility] Start: 11-01-2022 Screening for malign ant neoplasm of cervix [facility] Start: 09-10-2022 End: 09-10-2022 Patient encounter procedure 09/10/2022 Office Visit Primary Care Zita Randolph MD [facility] [address] [address] [facility] Start: 08-02-2022 Depression Assessment Depression Ass [facility] Start: 06-25-2022 eGFR Diabetes eGFR Diabetes [facility] Start: 04-02-2022 Influenza vaccination [facility] Start: 03-25-2022 Hemoglobin A1c measurement A1C [facility] Start: 03-24-2022 End: 03-24-2022 Patient encounter procedure 03/24/2022 Office Visit Primary Care Zita Randolph MD [facility] [address] [address] [facility] Start: 04-09-2021 HbA1c (Bld) [Mass fraction] A1C [facility] Start: 04-09-2021 Hemoglobin A1c measurement A1C [facility] Start: 04-02-2021 Influenza vaccination [facility] Start: 01-07-2021 Hemoglobin A1c measurement A1C [facility] Start: 11-29-2020 End: 11-29-2020 Telemedicine 11/29/2020 Telemedicine Nutrition Zita Randolph MD [facility] [address] [address] [address] [facility] Nutritional Services Start: 11-26-2020 End: 11-26-2020 Nutrition 11/26/2020 Nutrition Nutrition Zita Randolph MD [address] [address] [place] [facility] Nutrition Services Start: 11-21-2020 End: 11-21-2020 Telemedicine 11/21/2020 Telemedicine [place] [address] [place] [id number] Brandy Bentley, RN [facility] Start: 11-11-2020 End: 11-11-2020 Office Visit [facility] Start: 10-31-2020 End: 10-31-2020 Telemedicine 10/31/2020 Telemedicine Nutrition Zita Randolph MD [address] [address] Brandy Bentley, RN [facility] Start: 10-25-2020 End: 10-25-2020 Telemedicine 10/25/2020 Telemedicine Nutrition Zita Randolph MD [address] [address] Luz Elena Sherman, ERIKA [facility] Start: 10-24-2020 End: 10-24-2020 Office Visit 10/24/2020 Office Visit Primary Care Zita Randolph MD [address] [address] [facility] Start: 04-02-2020 Influenza vaccination Sequenti al Influenza Vaccine (#1) [facility] Start: 04-02-2020 Influenza vaccinatio n given Sequential Influenza Vaccine (#1) [facility] Start: 11-02-2018 End: 11-02-2018 Office Visit 11/02/2018 Office Visit [facility] Franchesca Chu, DO [address] [place] [address] [phone] [facility] Start: 11-01-2018 History and physical examination, annual for health maintenance Wellness Visit [facility] Start: 04-02-2018 Influenza vaccination INFLUENZA VACC INE (#1) [facility] Start: 2012 Screening for malign ant neoplasm of cervix PAP SMEAR DISCUSSION [facility] Start: 2010 Pneumococcal Vaccine : Ped or At-Risk (1 of 2 - PCV) Pneumococcal Vaccine: Ped or At-Risk (1 of 2 - PCV) [facility] Start: 2010 Third diphtheria, te tanus and acellular pertussis (DTaP) vaccination TDAP (ADULT) [facility] Start: 2009 Annual PCP Team [place] A Driver daniel Disease Visit Annual PCP Team Chronic Disease Visit [facility] Start: 2009 Hepatitis C antibody , confirmatory test Hepatitis C Screening [facility] Start: 2009 Hepatitis C [facility] Start: 2009 Hep[facility] C [facility] Start: 2009 HIV Screening HIV Screening [facility] Start: 2009 HIV screening HIV Screening [facility] Start: 2009 Tetanus vaccination [facility] Start: 2007 COVID-19 Vaccine (1 of 2) COVI D-19 Vaccine (1 of 2) [facility] Start: 2007 COVID-19 Vaccine (1) COVID-19 Vaccin e (1) [facility] Start: 2006 HIV screening HIV Screening [facility] Start: 2004 HIV screening HIV SCREENING DISCUSSION [facility] Start: 2003 COVID-19 Vaccine (1) COVID-19 Vaccin e (1) [facility] Start: 2001 3 comp foot exam completed Diabetic Foot Exam [facility] Start: 2001 Albumin DL <= 20 mg/ L (U) [Mass/Vol] Urine Microalbumin [facility] Start: 2001 Diabetic foot examination [facility] Start: 2001 Glaucoma screening [facility] Start: 2001 Hepatitis B screening Urine Albumin:Creatinine Ratio [facility] Start: 2001 Hepatitis C antibody , confirmatory test Dilated Retinal Exam [facility] Start: 2001 Microalbumin measure ment, urine, quantitative Urine Microalbumin [facility] Start: 2001 Ophthalmic examinati on and evaluation Ophthalmology Exam [facility] Start: 2001 Urine screening for protein [facility] Start: 1997 Pneumococcal vaccination [facility] Start: 1997 Pneumococcal Vaccine : Ped or At-Risk (1 - PCV) Pneumococcal Vaccine: Ped or At-Risk (1 - PCV) [facility] Start: 1997 Pneumococcal Vaccine : Ped or At-Risk (1 of 2 - PCV) Pneumococcal Vaccine: Ped or At-Risk (1 of 2 - PCV) [facility] Start: 1997 Pneumococcal Vaccine : Ped or At-Risk (1 of 2 - PPSV23) Pneumococcal Vaccine: Ped or At-Risk (1 of 2 - PPSV23) [facility] Start: 1996 COVID-19 Vaccine (#1) COVID-19 Vacci ne (#1) [facility] Start: 1996 COVID-19 Vaccine (1) COVID-19 Vaccin e (1) [facility] Start: 1994 History and physical examination, annual for health maintenance Wellness Visit [facility] Start: 01-09-1992 COVID-19 Vaccine (#1) COVID-19 Vacci ne (#1) [facility] Start: 1991 Screening for malign ant neoplasm of cervix Pap Smear [facility] Start: 1991 Tetanus vaccination Tetanus: Every 1 0yrs [facility] End: 10-07-2021 Basic metabolic 2000 panel Basic Metabolic Panel Lab Routine Encounter to establish care Obesity, morbid, BMI 40.0-49.9 (HCC) 1 Occurrences starting 10/07/2020 until 10/07/2021 [facility] Comment on above: 1 Occurrences starti ng 10/07/2020 until 10/07/2021 Basic metabolic 2000 panel Basic Metabolic Panel Lab Routine Encounter to establish care Obesity, morbid, BMI 40.0-49.9 (HCC) 10/07/2020 10:04 AM EST [facility] CBC W Auto Different ial panel - Blood [facility] End: 01-09-2025 Comprehensive metabolic 2000 panel - Serum or Plasma Comprehensive Metabolic Panel Lab Routine Type 2 diabetes mellitus without complication, unspecified whether mcfp insulin use (HCC) 1 Occurrences starting 01/10/2024 until 01/09/2025 [facility] Comment on above: 1 Occurrences starti ng 01/10/2024 until 01/09/2025 Erythrocyte mean corpuscular volume determination [facility] Biophysical pr ofile panel [facility] Biophysical pr ofile panel [facility] End: 10-07-2021 HbA1c (Bld) [Mass fraction] Hemoglobin A1c Lab Routine Encounter to establish care Obesity, morbid, BMI 40.0-49.9 (HCC) 1 Occurrences starting 10/07/2020 until 10/07/2021 [facility] Comment on above: 1 Occurrences starti ng 10/07/2020 until 10/07/2021 HbA1c (Bld) [Mass fraction] Hemoglobin A1c Lab Routine Encounter to establish care Obesity, morbid, BMI 40.0-49.9 (HCC) 10/07/2020 10:04 AM EST [facility] Hematocrit [Volume Fraction] of Blood [facility] Hemoglobin [Mass/vol ume] in Blood [facility] End: 01-09-2025 Hemoglobin A1c/Hemoglobin.total in Blood Hemoglobin A1c Lab Routine Type 2 diabetes mellitus without complication, unspecified whether mcfp insulin use (HCC) 1 Occurrences starting 01/10/2024 until 01/09/2025 [facility] Comment on above: 1 Occurrences starti ng 01/10/2024 until 01/09/2025 Leukocytes [#/volume ] in Blood [facility] End: 10-07-2021 Lipid 1996 panel Lipid Panel Lab Routine Encounter to establish care Obesity, morbid, BMI 40.0-49.9 (HCC) 1 Occurrences starting 10/07/2020 until 10/07/2021 [facility] Comment on above: 1 Occurrences starti ng 10/07/2020 until 10/07/2021 Lipid 1996 panel Lipid Panel Lab Routine Encounter to establish care Obesity, morbid, BMI 40.0-49.9 (HCC) 10/07/2020 10:04 AM EST [facility] End: 01-09-2025 Lipid 1996 panel - Serum or Plasma Lipid Panel Lab Routine Type 2 diabetes mellitus without complication, unspecified whether intermediate teacher insulin use (HCC) 1 Occurrences starting 01/10/2024 until 01/09/2025 [facility] Comment on above: 1 Occurrences starti ng 01/10/2024 until 01/09/2025 Mean corpuscular hemoglobin concentration determination [facility] Mean corpuscular hemoglobin determination [facility] End: 12-23-2022 Microalbumin measurement, urine, quantitative Microalbumin/Creatinine Ratio, UR Random Lab Routine Type 2 diabetes mellitus without complication, unspecified whether intermediate teacher insulin use (HCC) 1 Occurrences starting 12/23/2021 until 12/23/2022 [facility] Work Phone: Comment on above: 1 Occurrences starti ng 12/23/2021 until 12/23/2022 End: 01-09-2025 Microalbumin measurement, urine, quantitative Microalbumin/Creatinine Ratio, UR Random Lab Routine Type 2 diabetes mellitus without complication, unspecified whether intermediate teacher insulin use (HCC) 1 Occurrences starting 01/10/2024 until 01/09/2025 [facility] Comment on above: 1 Occurrences starti ng 01/10/2024 until 01/09/2025 Neutrophil count [facility] Neutrophil percent differential count [facility] Patient Education Kick Counts ED False Labor OB Triage: Return to Hospital or Notify Physician if you Experience: [facility] Work Phone: Platelets [#/volume] in Blood [facility] Red blood cell count [facility] Red cell distributio n width determination [facility] Serologic test for syphilis [facility] End: 01-09-2025 Thyrotropin [Units/volume] in Serum or Plasma TSH with Reflex Free T4 Lab Routine Type 2 diabetes mellitus without complication, unspecified whether mcfp insulin use (HCC) 1 Occurrences starting 01/10/2024 until 01/09/2025 [facility] Work Phone: Comment on above: 1 Occurrences starti ng 01/10/2024 until 01/09/2025 End: 10-07-2021 TSH Qn TSH with Reflex Free T4 Lab Routine Anxiety and depression 1 Occurrences starting 10/07/2020 until 10/07/2021 [facility] Comment on above: 1 Occurrences starti ng 10/07/2020 until 10/07/2021 TSH Qn TSH with Reflex Free T4 Lab Routine Anxiety and depression 10/07/2020 10:04 AM EST [facility] Ultrasound scan for growth [facility] Immunizations Immunization Date Immunization Notes Care Provider César noe 02-12-2025 tetanus toxoid, redu bev diphtheria toxoid, and acellular pertussis vaccine, adsorbed No Primary Care Physician [facility] 03-31-2021 tetanus toxoid, redu bev diphtheria toxoid, and acellular pertussis vaccine, adsorbed No Primary Care Physician [facility] Payers Date Payer Category Payer Self-pay 2020 [employer] ANTHPARDEEP PRICE UE/PREF/HMO/PPO [id number] 2020 Unknown ALEJANDRO MARAVILLA/PREF/HMO/PPO [id number] 2020-Present [id number]. 7.3.674783.315 2020 Unknown [id number]. 1.13.385.2. 7.3.307340.315 2020 Unknown [id number] 2018 Unknown ANTHEM ALEJANDRO HM O PPO POS xxxxxxxxxxxx 2018-Present [id number] 1.2.840.370315.1.13.172.2. 7.3.769512.315 1991 Unknown [id number] 2.16.840.1.935508.3.579.2. 903 1991 Unknown [id number] 2.16.840.1.407041.3.579.2. 479 1991 Unknown [id number] 2.16.840.1.208830.3.579.2. 479 1991 Unknown [id number] 2.16.840.1.753847.3.579.2. 479 1991 Unknown [id number] 2.16.840.1.626849.3.579.2. 479 1991 Unknown [id number] 2.16.840.1.132560.3.579.2. 903 1991 Unknown [id number] 2.16.840.1.481095.3.579.2. 903 Unknown [id number] 2.16840.1.557034.3.579.2. 462 Unknown [id number] 2.16.840.1.821479.3.579.2. 462 Unknown [id number] 2.16.840.1.716784.3.579.2. 462 Unknown [id number] 2.16.840.1.616377.3.579.2. 462 Unknown [id number] 2.16.840.1.692352.3.579.2. 462 Unknown [id number] 2.16.840.1.914657.3.579.2. 462 Unknown [id number] 2.16.840.1.474290.3.579.2. 462 Unknown [id number] 2.16.840.1.030171.3.579.2. 462 Unknown [id number] 2.16.840.1.797584.3.579.2. 462 Unknown [id number] 2.16.840.1.833473.3.579.2. 462 Unknown [id number] 2.16.840.1.269404.3.579.2. 462 Unknown [id number] 2.16.840.1.771010.3.579.2. 462 Unknown [id number] 2.16.840.1.948501.3.579.2. 462 Unknown [id number] 2.16.840.1.157098.3.579.2. 462 Unknown [id number] 2.16.840.1.732513.3.579.2. 462 Unknown [id number] 2.16.840.1.121078.3.579.2. 462 Unknown [id number] 2.16.840.1.583960.3.579.2. 462 Unknown [id number] 2.16.840.1.086508.3.579.2. 462 Unknown [id number] 2.16.840.1.087621.3.579.2. 462 Unknown [id number] 2.840.1.292406.3.579.2. 462 Unknown [id number] 2.16840.1.861099.3.579.2. 462 Unknown [id number] 2.16.840.1.502534.3.579.2. 462 Unknown [id number] 2.16.840.1.194473.3.579.2. 462 Unknown [id number] 2.16.840.1.710580.3.579.2. 462 Unknown [id number] 2.16.840.1.580744.3.579.2. 462 Unknown [id number] 2.16.840.1.758783.3.579.2. 462 Unknown [id number] 2.16.840.1.539399.3.579.2. 462 Unknown [id number] 2.16.840.1.846416.3.579.2. 462 Unknown [id number] 2.16.840.1.999896.3.579.2. 462 Unknown [id number] 2.16.840.1.486279.3.579.2. 462 Social History Date Type Detail Facility Start: 11-01-2017 End: 09-08-2024 Tobacco smoking status CAIS Never smoker [facility] Start: 1990 Sex Assigned At Not on file [facility] Start: 10-07-2020 End: 12-23-2021 Tobacco use and exposure Never used [facility] Start: 10-07-2020 End: 03-02-2025 Alcohol intake Ex-drinker (finding) [facility] Start: 10-07-2020 End: 10-24-2020 History SDOH Social Connections Get Together 2 [facility] Start: 10-07-2020 End: 10-24-2020 History SDOH Financial 5 [facility] Start: 10-07-2020 End: 10-24-2020 History SDOH Food Worry 1 [facility] Start: 12-13-2021 End: 12-22-2022 Exposure to SARS-CoV-2 (event) Not sure [facility] Start: 10-31-2020 History SDOH Physical Activity DPW 7 [facility] Start: 10-31-2020 History SDOH Physical Activity MPS 3 [facility] Start: 10-31-2020 History SDOH Education 17 [facility] Start: 12-23-2021 End: 03-02-2025 Cigarette pack-years [facility] Start: 10-31-2020 End: 03-02-2025 Humiliation, Afraid, Rape, and Kick questionnaire [HARK] [facility] Within the last year , have you been afraid of your partner or ex-partner? No [facility] Frequency of Communication with Friends and Family Not on file [facility] Do you feel stress - tense, restless, nervous, or anxious, or unable to sleep at night because your mind is troubled all the time - these days [OSQ] Only a little [facility] (I/We) worried wheth er (my/our) food would run out before (I/we) got money to buy more. Never true [facility] Start: 10-07-2020 Gender identity Identifies as female gender (finding) [facility] Start: 10-07-2020 Sexual orientation Heterosexual (finding) [facility] Start: 06-09-2023 Alcohol intake Current non-drinker of alcohol (finding) [facility] Start: 10-07-2024 Sex Female (finding) [facility] Start: 1990 Sex Assigned At Female [facility] Start: 08-08-2024 [facility] Medical Equipment Procedure Code Equipment Code Equipment Origin al Text Equipment Identifier Dates by Miscellaneous route daily Once daily every morning before breakfast. . [id number] Start: 10-08-2020 End: 01-06-2021 1 Lancet by Miscellaneous route daily . [id number] Start: 10-08-2020 10 Units by Miscellaneous route daily . [id number] Start: 10-11-2020 End: 01-09-2021 Inject 1 each un jeannette the skin daily . [id number] Start: 01-27-2021 Inject 1 each un jeannette the skin daily . [id number] Start: 09-22-2022 Pen Needle, Diab etic (Bd [...] Note Facility 03-21-2025 Radiology Diagnostic study note [facility] Imaging Services [address] [place], [place] [address] OB Biophysical Prof W/O CAITIE MR#: [id number] Acct: [id number] Name: TASIA ALMAGUER Rep #: [id number] : 1990 F 34 From: Chidi Shepherd MD PCP: ZITA RANDOLPH MD Status: REG CLI Study:OB Biophysical Prof W/O NST Date of Exa m: 03/20/25 Exam# [id number] Ordering Dr: Mae Walelr MD PROCEDURE: OB BIOPHYSICAL PROF W/O NST [...] with a score of 8/8 Reading Location: [id number] CC: ZITA RANDOLPH MD; Dr. Mae Reeves MD ~ Parcel Post Clerk: Signed [facility] 03-14-2025 Radiology Diagnostic study note [facility] Imaging Services [address] [place], [place] [address] OB Biophysical Prof W/O NST MR#: [id number] Acct: [id number] Name: TASIA ALMAGUER Rep #: [id number] : 1990 F 34 From: Chidi Shepherd MD PCP: Care Physician,No Primary Status: REG CLI Study:OB Biophysical Prof W/O NST Date of Exa m: 03/13/25 Exam# [id number] Ordering Dr: Mae Waller MD PROCEDURE: OB [...] NST IMPRESSION: Normal biophysical profile. Reading Location: [id number] CC: Dr. Mae Reeves MD; No Primary Care Physician ~ Parcel Post Clerk: Signed [facility] 03-09-2025 Progress note [facility] 03-09-2025 Progress note Note Date/Time March 09, 2025 2:31pm [facility] [address], [address] [place] [address] OFFICE VISIT Date of Service: 03/09/25 MR#: [id number] Acct: [id number] Name: TASIA ALMAGUER Rep # : [id number] : 1990 Provider: CLAUDIO Xiong Age/Sex: 34/F Location: [facility] Status: Signed Intake Vital Signs 01/17/25 15:47 02/26/25 13:25 03/09/25 13:43 Height 5 ft 7 in 5 ft 7 in 5 ft 7 in Weight: 286 lb 8 oz 288 lb 2 oz BMI 44.9 45.1 BP 133/79 H 133/86 H Intake Visit Reasons: 32 WK OB/NST Chief Complaint: 32wk ob/nst Shipping And Receiving Clerk Required: No Is patient in pain?: No [...] tablet 500 mg PO BID Check with [facility] 09/08/24 03/09/25 History doctor blood-glucose sensor (FreeStyle [...] 3-4 times per week duration: 15-30 minutes/day geoffrey/mandaeism: None seatbelt use: always do you feel [...] full term 8lbs 3oz Male ep idural [facility] [place] Delivery Date: 06/17/21 Last Updated [...] Circumcision preference, Signs and Symptoms of Preeclampsia, Infant Feeding No , [place] [employer] and Family Medical Leave or Disability [...] mellitus complication status: without complication Diabetes mellitus intermediate teacher insulin use: without intermediate teacher use Diabetes mellitus type: type 2 Anxiety F41.9 CPT Codes Non-Stress Test (11117) Assessment and Plan Assessment and Plan (1) [...] (Has custody of 14yr old twin nieces, [place] & [place]), : [place] (6) Hypertension: Status: [...] mellitus complication status: without complication Diabetes mellitus mcfp insulin use: without mcfp use Diabetes mellitus type: type 2 Qualified [...] this visit. [place] appropriate handout given. 03/09/25 1432 <Electronically signed by Tere sandoval CNM> Date _ Tere Xiong CNM Cosigner Signature: Date (if applicable) CC: ~ [facility] Work Phone: 1(219) 174-430208-08-2025 History of Present illness Narrative* Maddie Washburn MA - 03/09/2025 9:50 AM EDT Request sent to [facility] medical records. [facility]. Fax#: [phone] [facility] care * Zita Randolph MD - 03/02/2025 [...] currently 31 weeks and receiving care at [facility]. There have been no reported issues with the , and she takes labetalol 200 mg twice a day for blood pressure. She has a history of diabetes and is managed by [facility]. Her last A1c was 5.1 in December, attributed to eating small, frequent meals. She uses Lantus, a long-acting insulin, at 90 units, and Lispro, a short-acting insulin, at 22 units with meals. She also takes metformin, which she refills through her clay temperer. She is on Zoloft 50 mg daily. She received the TDAP vaccination during . An echocardiogram was performed due to difficulty obtaining heart images, similar to her previous . Socially, she stays at home due to the heat and has a zeifn-oxpu-umb child. She plans to have an eye exam after delivery and has chosen a professor of social work through [facility] for her new baby. Past Medical History: [...] immunity. - Continue care with OB at [facility]. - Discuss RSV vaccination with OB to provide immunity. - Schedule follow-up 4 months after delivery. Type 2 diabetes mellitus, well controlled in Diabetes well controlled with A1c of 5.1. Managed by endocrinology with Lantus and Lispro. Small frequent meals adopted. - Continue current diabetes management with endocrinology at [facility]. - Obtain records from endocrinology for continuity [...] Follow Up. ZITA RANDOLPH MD [facility] [address] [facility] [address] [facility] [address] Dept: [phone] 10/07/2020 9:00 AM 12/23/2021 9:44 AM 03/02/2025 [...] PHQ-2 Total Score 0 documented in this [id number] Radiology Diagnostic study note [facility] Imaging Services [address] [place] [address] OB Biophysical Prof W/O NST MR#: [id number] Acct: [id number] Name: TASIA ALMAGUER Rep #: [id number] : 1990 F 34 From: Chidi Shepherd MD PCP: Care Physician,No Primary Status: REG CLI Study:OB Biophysical Prof W/O NST Date of Exa m: 03/06/25 Exam# [id number] Ordering Dr: Mae Waller MD PROCEDURE: OB [...] NST IMPRESSION: Normal biophysical profile. Reading Location: [facility] CC: Dr. Mae Reeves MD; No Primary Care Physician ~ Parcel Post Clerk: Signed [facility]08-06-2025 Radiology Diagnostic study note [facility] Imaging Services [address] [place], [place] [address] OB Limited With Biometrics MR#: [id number] Acct: [id number] Name: TASIA ALMAGUER Rep #: [id number] : 1990 F 34 From: Chidi Shepherd MD PCP: Care Physician,No Primary Status: REG CLI Study:OB Limited With Biometrics Date of Exam : 03/06/25 Exam# [id number] Ordering Dr: Mae Waller MD PROCEDURE: OB [...] of 31 weeks and 4days. Reading Location: [id number] CC: Dr. Mae Reeves MD; No Primary Care Physician ~ Parcel Post Clerk: Signed [facility]08-01-2025 Instructions* Patient Instructions* Zita Randolph MD [...] look into their status. Customer Service/Billing Questions: [phone] MyChart Assistance: [phone] or [phone] Financial Assistance: [phone] or [phone] Wednesday 7 am to 5 pm Wednesday 7 am to 5 pm Wednesday 7 am to 5 pm Wednesday 8 am to 2 pm documented in this [id number] Instructions* Patient Instructions* Zita Randolph MD - [...] look into their status. Customer Service/Billing Questions: [phone] [place] Assistance: [phone] or [phone] Financial Assistance: [phone] or [phone] Wednesday 7 am to 5 pm Wednesday 7 am to 5 pm Wednesday closed 7 am to 5 pm Wednesday 8 am to 2 pm documented in this [id number] NoteChief Complaint Patient presents with Medication Refill [...] currently 31 weeks and receiving care at [facility]. There have been no reported issues with the , and she takes labetalol 200 mg twice a day for blood pressure. She has a history of diabetes and is managed by [place] [facility]. Her last A1c was 5.1 in December, attributed to eating small, frequent meals. She uses Lantus, a long-acting insulin, at 90 units, and Lispro, a short-acting insulin, at 22 units with meals. She also takes metformin, which she refills through her clay temperer. She is on Zoloft 50 mg daily. She received the TDAP vaccination during . An echocardiogram was performed due to difficulty obtaining heart images, similar to her previous . Socially, she stays at home due to the heat and has a kltrr-kcrh-fsq child. She plans to have an eye exam after delivery and has chosen a professor of social work through [facility] for her new baby. Past Medical History: [...] a day . LANCETS (more content not included)...[facility]08-01-2025 History of Present illness Narrative* Zita Randolph [...] currently 31 weeks and receiving care at [place]. There have been no reported issues with the , and she takes labetalol 200 mg twice a day for blood pressure. She has a history of diabetes and is managed by [place] [facility]. Her last A1c was 5.1 in December, attributed to eating small, frequent meals. She uses Lantus, a long-acting insulin, at 90 units, and Lispro, a short-acting insulin, at 22 units with meals. She also takes metformin, which she refills through her clay temperer. She is on Zoloft 50 mg daily. She received the TDAP vaccination during . An echocardiogram was performed due to difficulty obtaining heart images, similar to her previous . Socially, she stays at home due to the heat and has a wanaw-rwvv-ump child. She plans to have an eye exam after delivery and has chosen a professor of social work through [employer] for her new baby. Past Medical History: [...] - Primary Other Obesity, morbid, BMI 40.0-49.9 ([facility]) Assessment & Plan , third trimester 31 weeks gestation, stable blood pressure, no concerns on echocardiogram. Discussed RSV vaccination for immunity. - Continue care with OB at [place]. - Discuss RSV vaccination with OB to provide immunity. - Schedule follow-up 4 months after delivery. Type 2 diabetes mellitus, well controlled in Diabetes well controlled with A1c of 5.1. Managed by endocrinology with Lantus and Lispro. Small frequent meals adopted. - Continue current diabetes management with endocrinology at [place]. - Obtain records from endocrinology for continuity [...] Follow Up. ZITA RANDOLPH MD OPG [address] [facility] [address] [facility] [id number] Dept: [phone] 10/07/2020 9:00 AM 12/23/2021 9:44 AM 03/02/2025 [...] PHQ-2 Total Score 0 documented in this [id number] Progress [facility]'[address], [address] [place] [address] OFFICE VISIT Date of Service: 02/12/25 MR#: [id number] Acct: [id number] Name: TASIA ALMAGUER Rep # : [id number] : 1990 Provider: VIVIANE Jackson Age/Sex: 34/F Location: [facility] Status: Signed with Addenda ADDENDUM by Nidhi Lyman on 02/12/25 at 1423 Office Procedure Documentation entered by Nidhi Lyman 02/12/25 14:23: Immunizations Adacel(Tdap Adolesn/Adult)(PF) 2 Lf-(2.5-5-3-5)-5 Lf/0.5 mL IM syringe Performing Provider: Rebecca Jackson CORRUGATOR OPERATOR, TYRONEC Performing Location: [facility] Administered by: Nidhi Lyman on 02/12/25 14:22 Dose Route Admin Location Dispensed Lot Number Expiration Date NDC Beam Warper 0.5 mL IM Left Deltoid 0.5 mL [id number] 01/29/27 51668-514-46 SANOF I-PASTEUR VIS Given Date VIS Provided [...] 28wk ob Chief Complaint: 28 Week OB Shipping And Receiving Clerk Required: No Is patient in pain?: No Allergies No Known Allergies Allergy (Verified 02/12/25 13:38) Medications ?Medication ?Instructions ?Recorded ?Confirmed ?Type multivitamin no.47-iron fum 27 1 cap PO DAILY Check wi th primary 11/05/20 02/12/25 History mg-folate no.1 1 mg-dha 300 mg doctor capsule (PNV-DHA) sertraline 50 mg tablet (Zoloft) 50 mg PO DAILY Check with primary 11/05/20 02/12/25 History doctor metformin 500 mg tablet 500 mg PO BID Check with robert noland 09/08/24 02/12/25 History doctor blood-glucose sensor (FreeStyle #6 ea 09/25/24 5 Rx Vamsi 3 Plus Sensor device) pen needle, diabetic 32 gauge x #150 ea 09/25/2402/12 Rx 5/32 (BD Ultra-Fine Kiah Pen Needle) [...] 3-4 times per week duration: 15-30 minutes/day geoffrey/mandaeism: None seatbelt use: always do you feel [...] Diabetes mellitus type: type 2 Diabetes mellitus intermediate teacher insulin use: without intermediate teacher use Diabetes mellitus complication status: without complication Anxiety F41.9 Assessment and Plan Assessment and Plan (1) Supervision of high-risk : Status: Acute Qualifiers: Trimester: second trimester Qualified Code(s): O09.92 - Supervision of high risk , unspecified, second trimester Comment: PRR , GIANFRANCO 05/01/25, girl [facility]: Ernie (Has custody of 14yr old twin nieces, [place] &Believe), : Slade (2) : Status: Acute [...] Diabetes mellitus type: type 2 Diabetes mellitus mcfp insulin use: without intermediate teacher use Diabetes mellitus complication status: without complication Qualified Code(s): E11.9 - Type 2 diabetes mellitus without complications Comment: Type 2 - On Metformin & insulin (10) Anxiety: Status: Acute Comment: Tamica , encouraged counseling. Stable Orders: Orders POC Urinalysis 2 Dip (Clinic) Today Plan problem list reviewed and updated for most current plan of care and appropriate orders placed. Relevant counseling for the gestational age appropriate provided and ACOG education checklist updated. Continue routine care and follow up. 02/12/25 1404 s CORRUGATOR OPERATOR CORRUGATOR OPERATOR-C> Date _ Rebecca Jackson NP CORRUGATOR OPERATOR-C Cosigner Signature: Date (if applicable) CC: ~ [facility]07-14-2025 Progress note Author Rebecca Jackson [facility] Note Date/Time February 12, 2025 2:04 pm [facility] [address] [place] [address], [address] [place] [address] OFFICE VISIT Date of Service: 02/12/25 MR#: [id number] Acct: [id number] Name: TASIA ALMAGUER Rep # : [id number] : 1990 Provider: CORRUGATOR OPERATORNathaniel Jackson Age/Sex: 34/F Location: [facility] Status: Signed with Addenda ADDENDUM by Nidhi Lyman on 02/12/25 at 1423 Office Procedure Documentation entered by Nidhi Lyman 02/12/25 14:23: Immunizations Adacel(Tdap Adolesn/Adult)(PF) 2 Lf-(2.5-5-3-5)-5 Lf/0.5 mL IM syringe Performing Provider: Rebecca Jackson CORRUGATOR OPERATOR, CORRUGATOR OPERATOR-C Performing Location: [facility] Administered by: Nidhi Lyman on 02/12/25 14:22 Dose Route Admin Location Dispensed Lot Number Expiration Date NDC Beam Warper 0.5 mL IM Left Deltoid 0.5 mL [id number] 01/29/27 [id number] SANOF I-PASTEUR VIS Given Date VIS Provided [...] 28wk ob Chief Complaint: 28 Week OB Shipping And Receiving Clerk Required: No Is patient in pain?: No Allergies No Known Allergies Allergy (Verified 02/12/25 13:38) Medications ?Medication ?Instructions ?Recorded ?Confirmed ?Type multivitamin no.47-iron fum 27 1 cap PO DAILY Check wi th primary 11/05/20 02/12/25 History mg-folate no.1 1 mg-dha 300 mg doctor capsule (PNV-DHA) sertraline 50 mg tablet (Zoloft) 50 mg PO DAILY Check with primary 11/05/20 02/12/25 History doctor metformin 500 mg tablet 500 mg PO BID Check with [facility] 09/08/24 02/12/25 History doctor blood-glucose sensor (MasonStyle #6 ea 09/25/24 5 Rx Vamsi 3 Plus Sensor device) pen needle, diabetic 32 gauge x #150 ea 09/25/2402/12 Rx 5/32 (BD Ultra-Fine Kiah Pen Needle) [...] 3-4 times per week duration: 15-30 minutes/day geoffrey/mandaeism: None seatbelt use: always do you feel safe at home: Yes additional social history: : Slade Melchor Andriy Michael Madden History 2 Elective abortions Hx Para 1 Spontaneous abortions 0 Hx # Term Pregnancies Ectopic pregnancies Hx # Pregnancies Multiple births # of living children 1 Past Pregnancies Del. Date Name GA/Weeks Outcome Route Bth Weight Infant Gen Labor Lgth Anesthesia Del Zoltanatn Provider FOB 06/17/21 Ernie 39 live - [...] of Preeclampsia, Feeding No and Yes Formula, [place] Education and Family Medical Leave or Disability [...] Diabetes mellitus type: type 2 Diabetes mellitus intermediate teacher insulin use: without intermediate teacher use Diabetes mellitus complication status: without complication Anxiety F41.9 Assessment and Plan Assessment and Plan (1) Supervision of high-risk : Status: Acute Qualifiers: Trimester: second trimester Qualified Code(s): O09.92 - Supervision of high risk , unspecified, second trimester Comment: PRR , GIANFRANCO 05/01/25, girl [facility]: Ernie (Has custody of 14yr old twin nieces, [place] & Believe), : Slade (2) : Status: [...] Diabetes mellitus type: type 2 Diabetes mellitus mcfp insulin use: without mcfp use Diabetes mellitus complication status: without complication [...] routine care and follow up. 02/12/25 1404 <Electronically signed by Rebecca sandoval NP CORRUGATOR OPERATOR-C> Date _ Rebecca Jackson NP CORRUGATOR OPERATOR-C Cosigner Signature: Date (if applicable) CC: ~ [place] [employer] [facility] Work Phone: 1(914) 851-342006-12-2025 Agustín Almaguer is a new patient who's primary care provider is No Primary Care, MD Lara here for evaluation of heart. Chief Complaint Patient presents with ECHO echo History of Presenting Problem HPI Thank you for consulting us regarding Tasia Almaguer. She is referred to the cardiology clinic at [facility] for evaluation of the heart. I saw [...] Insecurity: No Food Insecurity (10/24/2020) Received from [facility] Hunger Vital Sign Within the past 12 months, you worried that your food would run out before you got the money to buy more.: Never true Within the past 12 months, the food you bought just didn't last and you didn't have money to get more.: Never true Transportation Needs: No Transportation Needs (10/24/2020) [facility] from [facility] Lack of Transportation (Medical): No [...] There was a patent foramen ovale, with yfjmn-ll-ebam shunt. Tricuspid valve: Normal tricuspid valve. There [...] 4) I would l (more content not included)...[id number] Evaluation + Plan note* Assessment & Plan Note - Amador Luna DO - 01/01/2025 8:17 AM EDTAssociated Problem(s): Acute otitis media Acute right otitis media. Patient currently 22 weeks . - Prescribed amoxicillin 875 twice daily x 7 days - Follow-up if symptoms persist [id number] Miscellaneous Notes* Assessment & Plan Note - Amador Luna DO - 01/01/2025 8:17 AM EDTAssociated Problem(s): Acute otitis media Acute right otitis media. Patient currently 22 weeks . - Prescribed amoxicillin 875 twice daily x 7 days - Follow-up if symptoms persist documented in this [id number] NoteAssessment/Plan: Acute otitis media Acute right otitis [...] DO AUTHENTICATED BY AMADOR LUNA, ON 01/01/2025 08:17:[facility] History of Present illness Narrative* [...] medications. Amador Luna DO documented in this [id number] Evaluation note* Diagnosis Onset Date Resolution Status [...] 10:38am Hypertension chronic March 23, 2025 10:38am [facility] Work Phone: 1(805) 966-582104-21-2025 Evaluation note* Diagnosis Onset Date Resolution Status [...] Hypertension chronic February 26, 2 025 1:20pm [facility] Work Phone: 1(312) 731-714504-21-2025 Evaluation note* Diagnosis Onset Date Resolution Status [...] chronic Jan 1:20pm Hypertension chronic February 26, 025 1:20pm Anxiety acute March 09 1:41pm [...] 1:41pm Hypertension chronic March 09, 2025 1:41pm [facility] Work Phone: 1(701) 491-401104-21-2025 Evaluation note* Diagnosis Onset Date Resolution Status [...] 1:26pm Hypertension chronic March 16, 2025 1:26pm [facility] Work Phone: 1(760) 130-646704-21-2025 Evaluation note* Diagnosis Onset Date Resolution Status [...] 2025 1:26pm Variable deceleration acute Mar 2:15pm [facility] Work Phone: 1(673) 858-640104-21-2025 Telephone encounter Note* Telephone Encounter - Lashell Glover LPN - 11/20/2024 8:36 AM EDT Last OV 10/10/23. Next OV 03/02/25. [id number] Miscellaneous Notes* Telephone Encounter - Lashell Glover LPN - 11/20/2024 8:36 AM EDT Last OV 10/10/23. Next OV 03/02/25. documented in this [id number] Evaluation note* Diagnosis Onset Date Resolution Status [...] Hypertension chronic February 12, 2 025 1:37pm [facility] Work Phone: 1(449) 860-127402-24-2025 Evaluation note* Diagnosis Onset Date Resolution Status Admit Date Anxiety acute September 25, 2024 8:32am Diabetes mellitus acute 2024 8:32am Family history of chromosoma l abnormality acute September 25, 2 025 8:32am Obesity affecting acute September 25, 2024 8:32am acute September 25, 2024 8:32am Supervision of high-risk acute September 25, 2 025 8:32am Hypertension chronic September 8:32am Type 2 diabetes mellitus affecting in first trimester, antepartum acute September 032024 1:53pm [facility] Work Phone: 1(292) 325-978902-24-2025 Evaluation note* Diagnosis Onset Date Resolution Status [...] 2024 3:36pm Hypertension chronic December 18 3:36pm [facility] Work Phone: 1(154) 920-578002-24-2025 Evaluation note* Diagnosis Onset Date Resolution Status Admit Date Anxiety acute September 25, 2024 8:32am Diabetes mellitus acute 2024 8:32am Family history of chromosoma l abnormality acute September 25, 025 8:32am Obesity affecting acute September 25, 2024 8:32am acute September 25, 2024 8:32am Supervision of high-risk acute September 25 025 8:32am Hypertension chronic September 8:32am Type [...] Hypertension chronic January 17, 2 025 3:37pm [facility] Work Phone: [phone]) [phone] Telephone encounter Note* Telephone Encounter - Annette Novoa RN - 08/10/2024 2:49 PM EST Last office visit 01/10/2024, next scheduled office visit 09/19/2024 [id number] Miscellaneous Notes* Telephone Encounter - Annette Novoa RN - 08/10/2024 2:49 PM EST Last office visit 01/10/2024, next scheduled office visit 09/19/2024 documented in this [id number] Telephone encounter Note* Telephone Encounter - Lashell Glover LPN - 2024 1:00 PM EST Last OV 01/10/24. Next OV 09/19/24. [id number] Miscellaneous Notes* Telephone Encounter - Lashell Glover LPN - 2024 1:00 PM EST Last OV 01/10/24. Next OV 09/19/24. documented in this [id number] Telephone encounter Note* Telephone Encounter - Lashell Glover LPN - 04/17/2024 8:17 AM EDT Last OV 01/10/24. Next OV 07/03/24. [id number] Miscellaneous Notes* Telephone Encounter - Lashell Glover LPN - 04/17/2024 8:17 AM EDT Last OV 01/10/24. Next OV 07/03/24. documented in this [id number] History of Present illness Narrative* Zita Randolph [...] got and was managed through endocrinology in [place] office with Dr. Dunne. Patient at that [...] was not given any back. Endocrinology in [facility] got her on a GLP-1 agonist [...] for Annual Exam. ZITA RANDOLPH MD OPG [address] [facility] [address] [facility] [address] Dept: [phone] 10/07/2020 9:00 AM 12/23/2021 9:44 AM Depression [...] Not difficult at all documented in this [id number] Telephone encounter Note* Telephone Encounter - Shavon Grady RN - 09/15/2023 9:43 AM EST LAST OV 12/22/22. NEXT OV SCHEDULED FOR 01/10/24. [id number] Miscellaneous Notes* Telephone Encounter - Shavon Grady RN - 09/15/2023 9:43 AM EST LAST OV 12/22/22. NEXT OV SCHEDULED FOR 01/10/24. documented in this [id number] NoteHNO ID: [id number] Author: Yossi Alcazar V, MD Service: ? Author Type: Physician Type: Progress Notes Filed: 07/07/2023 5:35 PM Note Text: NEW PATIENT VISIT Consulted by: Self ASSESSMENT AND RECOMMENDATIONS: Nidhi Almgauer is a 32 year old female with [...] LVESD 5) Other pertinent labs reviewed in [facility] PH[facility]ICAL EXAM: BP 138/95 Pulse 118 [...] MONOFILAMENT: - If done, is updated in [facility] 06-09-2023 Instructions* Patient Instructions* Yossi Alcazar V, MD - 06/09/2023 11:[address] Eulogio Cagle CNP See one of them every 3 months [...] the 2017 blood sugar goals from the [place] [employer]. Time of Test Acceptable Results My Target Range Before meals 80-130 mg/dL 2 hours after start of meal Less than 180 mg/dL Before bedtime 100-150 mg/dL If less than 100 mg/dL, have a snack You can get blood sugar testing supplies from local pharmacies or some [employer] companies. If youhave insurance, check with your insurance company for coverage information. If you do not have insurance, check with your health care provider for other options. [facility] History of Present illness Narrative* Yossi [...] a [facility] of [facility] No primary care [...] updated in HM tab documented [facility] Evaluation + Plan note* Assessment & Plan Note - Zita Randolph MD - 09/10/2022 11:23 PM ESTAssociated Problem(s): Anxiety and depression Stable on Zoloft 50 mg requesting refills today [id number] Miscellaneous Notes* Assessment & Plan Note - [...] up from 9.6. Last full eye exam: [facility] 6 months ago, any new [...] Tresiba ordered today. Referral to diabetes education, health care social worker for Ozempic cost as well as diabetes management through endocrine referral placed today documented in this [id number] Evaluation + Plan note* Assessment & Plan Note - Zita Randolph MD - 09/10/2022 11:22 PM ESTAssociated Problem(s): HTN (hypertension) Controlled today. [place] [id number] Evaluation + Plan note* Assessment & Plan Note - Zita Randolph MD - 09/10/2022 11:18 PM ESTAssociated Problem(s): Diabetes mellitus (HCC) Diagnosed September 2020. HgbA1c: A1c today 11.3 up from 9.6. Last full eye exam: [facility] 6 months ago, any new vision concerns: None Regular foot self-exams: None, new foot concerns: Discuss next visit Neuropathic symptoms: None Microalbumin: Ordered Statins: We will check lipid panel Medications: Metformin 1000 mg twice daily, okay to take breakfast and lunch if that is how she will remember it. Starting on insulin at 20 units, Tresiba ordered today. Referral to diabetes education, health care social worker for Ozempic cost as well as diabetes management through endocrine referral placed today [place] [id number] History of Present illness Narrative* Zita Randolph [...] got and was managed through endocrinology in [place] office with Dr. Dunne. Patient at that [...] up from 9.6. Last full eye exam: [facility] 6 months ago, any new [...] Tresiba ordered today. Referral to diabetes education, health care social worker for Ozempic cost as well as diabetes [...] Follow Up. ZITA RANDOLPH MD OPG [address] [facility] [address] [facility] [address] Dept: [phone] Depression Screening 10/07/2020 12/23/2021 Little interest or [...] Not difficult at all documented in this [id number] Telephone encounter Note* Telephone Encounter - Lashell Glover LPN - 08/06/2022 9:06 AM EST Last OV 05/21/22. No future OV scheduled. [id number] Miscellaneous Notes* Telephone Encounter - Lashell Glover LPN - 08/06/2022 9:06 AM EST Last OV 05/21/22. No future OV scheduled. documented in this [id number] Telephone encounter Note* Telephone Encounter - Parish Grace MD - 08/05/2022 10:01 PM EST Was supposed to follow up with Dr. Randolph in June, so will need appt [facility] Work Phone: [phone]) 419-442001-04-2023 Miscellaneous Notes* Telephone Encounter - Parish Grace MD - 08/05/2022 10:01 PM EST Was supposed to follow up with Dr. Randolph in June, so will need appt * Telephone Encounter - Shavon Grady RN - 08/05/2022 4:57 PM EST LAST OV 05/21/22. NO FUTURE VISITS ON FILE. documented in this [id number] Telephone encounter Note* Telephone Encounter - Shavon Grady RN - 08/05/2022 4:57 PM EST LAST OV 05/21/22. NO FUTURE VISITS ON FILE. [id number] Telephone encounter Note* Telephone Encounter - Oniel Keane LPN - 01/23/2022 1:24 PM EDT Attempted to call pt due to unread [employer] message and need for future appt per . No answer. VM left with office and contact information and requested a call back to the office. [id number] Miscellaneous Notes* Telephone Encounter - Oniel Keane [...] time. ZITA RANDOLPH MD Family Medicine Physician [place] [phone] documented in this [id number] Telephone encounter Note* Telephone Encounter - Oniel Keane LPN - 01/20/2022 11:12 AM EDT Mychart message sent to pt to inform her of the need for appt for future refills [id number] Miscellaneous Notes* Telephone Encounter - Oniel Keane LPN - 01/20/2022 11:12 AM EDT Mychart message sent to pt to inform her of the need for appt for future refills * Telephone Encounter - Zita Randolph MD - 01/20/2022 9:34 AM EDT Needs to reschedule. Visit was canceled around the storm time. ZITA RANDOLPH MD Family Medicine Physician O[facility] [place] [phone] documented in this [id number] Telephone encounter Note* Telephone Encounter - Zita Randolph MD - 01/20/2022 9:34 AM EDT Needs to reschedule. Visit was canceled around the storm time. ZITA RANDOLPH MD Family Medicine Physician O[facility] [place] [phone] [id number] Miscellaneous Notes* Telephone Encounter - Zita Randolph MD - 01/20/2022 9:34 AM EDT Needs to reschedule. Visit was canceled around the storm time. ZITA RANDOLPH MD Family Medicine Physician [place] [phone] documented in this [id number] Evaluation + Plan note* Assessment & Plan Note - Zita Randolph MD - 12/23/2021 1:31 PM EDTAssociated Problem(s): Anxiety and depression PHQ-9 score of 2, SCARLETT-7 score of 0. Continue on Zoloft 50 mg. [id number] Miscellaneous Notes* Assessment & Plan Note - [...] scheduled for next week. documented in this [id number] Evaluation + Plan note* Assessment & Plan Note - Zita Randolph MD - 12/23/2021 1:30 PM EDTAssociated Problem(s): Elevated BP without diagnosis of hypertension Continue to monitor at home and adhere to salt restriction. No issues with gestational hypertension. [id number] Evaluation + Plan note* Assessment & Plan [...] which she has scheduled for next week. [id number] History of Present illness Narrative* Monica Harrison MA - 12/23/2021 9:29 AM EDT Images from the original note were not included. Message Received: Today MD Monica Baca MA; Lubna Coffey MA Please get records from endocrinology in [place] Dr.Toni Dunne please . Thank you, ZITA RANDOLPH MD Family Medicine Physician [place] [phone] [facility] FAXED * Zita Randolph MD - 12/23/2021 [...] got and was managed through endocrinology in [place] office with Dr. Dunne. Patient at that [...] T4 (Completed) Other Obesity, morbid, BMI 40.0-49.9 (HCC) Anxiety and depression PHQ-9 score of 2, [...] 2 weeks (around 01/06/2022). ZITA RANDOLPH MD [facility] [address] [facility] [facility] [address] Dept: [phone] Depression Screening 10/07/2020 12/23/2021 Little interest or [...] Not difficult at all documented in this [id number] Miscellaneous Notes* Telephone Encounter - Sue Stevens MA - 07/17/2021 8:48 AM EST RECEIVED FAX FROM PHARMACY. REQUESTING REFILL ON QUEUED MEDICATION(S). LAST OV:10/24/20 NEXT OV:none scheduled documented in this [id number] History of Present illness Narrative* Jaci Diane RN - 03/12/2021 10:24 AM EDT Three call attempts were completed for Diabetes self care management education follow-up. Three Month follow up letter and questionnaire sent to patient. documented in this [id number] Miscellaneous Notes* Telephone Encounter - Shavon Grady RN - 01/16/2021 8:36 AM EDT RECEIVED REFILL REQUEST FROM PHARMACY. LAST OV 10/24/20. documented in this [id number] Miscellaneous Notes* Telephone Encounter - Shavon Grady RN - 11/25/2020 9:21 AM EDT RECEIVED FAX REQUESTING REFILL ON SERTRALINE. LAST OV 10/24/2020. [facility] [place] [facility] Diagnosis Elevated BP without diagnosis of hypertension- Primary Type 2 diabetes mellitus without complication, unspecified whether intermediate teacher insulin use (HCC) Obesity, morbid, BMI 40.0-49.9 (HCC) Anxiety and depression documented in this encounter [facility] note* Diagnosis Type 2 diabetes mellitus without complication, unspecified whether intermediate teacher insulin use (HCC) documented in this encounter [facility] note* Diagnosis Type 2 diabetes mellitus without complication, unspecified whether intermediate teacher insulin use (HCC) documented in this encounter [facility] note* Diagnosis Type 2 diabetes mellitus without complication, unspecified whether intermediate teacher insulin use (HCC) documented in this encounter [facility] note* Diagnosis Anxiety and depression Type 2 diabetes mellitus without complication, unspecified whether mcfp insulin use (HCC) documented in this encounter [facility] note* Diagnosis Hypertension, unspecified type- Primary Type 2 diabetes mellitus without complication, unspecified whether intermediate teacher insulin use (HCC) Anxiety and depression documented in this encounter [facility] note* Diagnosis Type 2 diabetes (HCC)- Primary Class 3 severe obesity with serious comorbidity and body mass index (BMI) of 40.0 to 44.9 in adult, unspecified obesity type (HCC) Hyperglycemia due to diabetes mellitus (HCC) documented in this encounter [facility] note* Diagnosis Anxiety and depression documented in this encounter [facility] note* Diagnosis Obesity, morbid, BMI 40.0-49.9 (HCC)- Primary Primary hypertension Unspecified essential hypertension Type 2 diabetes mellitus without complication, unspecified whether intermediate teacher insulin use (HCC) Anxiety and depression control counseling documented in this encounter [facility] note* Diagnosis Type 2 diabetes mellitus without complication, unspecified whether intermediate teacher insulin use (HCC) documented in this encounter [facility] note* Diagnosis Encounter to establish care- Primary Anxiety and depression Obesity, morbid, BMI 40.0-49.9 (HCC) Elevated BP without diagnosis of hypertension Elevated BP without diagnosis of hypertension- Primary Type 2 diabetes mellitus without complication, unspecified whether mcfp insulin use (HCC) Anxiety and depression Elevated BP without diagnosis of hypertension- Primary Type 2 diabetes mellitus without complication, unspecified whether intermediate teacher insulin use (HCC) Obesity, morbid, BMI 40.0-49.9 (HCC) Anxiety and depression Sore throat- Primary Acute pharyngitis Right ear pain Unspecified otalgia Type 2 diabetes mellitus without complication, unspecified whether intermediate teacher insulin use (HCC) Hypertension, unspecified type Hypertension, unspecified type- Primary Type 2 diabetes mellitus without complication, unspecified whether intermediate teacher insulin use (HCC) Anxiety and depression Type 2 diabetes mellitus without complication, unspecified whether intermediate teacher insulin use (HCC)- Primary Primary hypertension Unspecified essential hypertension Obesity, morbid, BMI 40.0-49.9 (HCC) Type 2 diabetes mellitus without complication, unspecified whether mcfp insulin use (HCC) documented in this encounter [facility] note* Diagnosis Encounter to establish care- Primary Anxiety and depression Obesity, morbid, BMI 40.0-49.9 (HCC) Elevated BP without diagnosis of hypertension Elevated BP without diagnosis of hypertension- Primary Type 2 diabetes mellitus without complication, unspecified whether intermediate teacher insulin use (HCC) Anxiety and depression Elevated BP without diagnosis of hypertension- Primary Type 2 diabetes mellitus without complication, unspecified whether mcfp insulin use (HCC) Obesity, morbid, BMI 40.0-49.9 (HCC) Anxiety and depression Sore throat- Primary Acute pharyngitis Right ear pain Unspecified otalgia Type 2 diabetes mellitus without complication, unspecified whether mcfp insulin use (HCC) Hypertension, unspecified type Hypertension, unspecified type- Primary Type 2 diabetes mellitus without complication, unspecified whether mcfp insulin use (HCC) Anxiety and depression Type 2 diabetes mellitus without complication, unspecified whether mcfp insulin use (HCC)- Primary Primary hypertension Unspecified essential hypertension Obesity, morbid, BMI 40.0-49.9 (HCC) Type 2 diabetes mellitus without complication, unspecified whether intermediate teacher insulin use (HCC) documented in this encounter [facility]* Diagnosis Encounter to establish care- Primary Anxiety and depression Obesity, morbid, BMI 40.0-49.9 (HCC) Elevated BP without diagnosis of hypertension Elevated BP without diagnosis of hypertension- Primary Type 2 diabetes mellitus without complication, unspecified whether mcfp insulin use (HCC) Anxiety and depression Elevated BP without diagnosis of hypertension- Primary Type 2 diabetes mellitus without complication, unspecified whether intermediate teacher insulin use (HCC) Obesity, morbid, BMI 40.0-49.9 (HCC) Anxiety and depression Sore throat- Primary Acute pharyngitis Right ear pain Unspecified otalgia Type 2 diabetes mellitus without complication, unspecified whether intermediate teacher insulin use (HCC) Hypertension, unspecified type Hypertension, unspecified type- Primary Type 2 diabetes mellitus without complication, unspecified whether mcfp insulin use (HCC) Anxiety and depression Type 2 diabetes mellitus without complication, unspecified whether intermediate teacher insulin use (HCC)- Primary Primary hypertension Unspecified essential hypertension Obesity, morbid, BMI 40.0-49.9 (HCC) Acute otitis media, unspecified otitis media type- Primary documented in this encounter [facility]* Diagnosis Encounter to establish care- Primary Anxiety and depression Obesity, morbid, BMI 40.0-49.9 (HCC) Elevated BP without diagnosis of hypertension Elevated BP without diagnosis of hypertension- Primary Type 2 diabetes mellitus without complication, unspecified whether intermediate teacher insulin use (HCC) Anxiety and depression Elevated BP without diagnosis of hypertension- Primary Type 2 diabetes mellitus without complication, unspecified whether mcfp insulin use (HCC) Obesity, morbid, BMI 40.0-49.9 (HCC) Anxiety and depression Sore throat- Primary Acute pharyngitis Right ear pain Unspecified otalgia Type 2 diabetes mellitus without complication, unspecified whether mcfp insulin use (HCC) Hypertension, unspecified type Hypertension, unspecified type- Primary Type 2 diabetes mellitus without complication, unspecified whether mcfp insulin use (HCC) Anxiety and depression Type 2 diabetes mellitus without complication, unspecified whether intermediate teacher insulin use (HCC)- Primary Primary hypertension Unspecified essential hypertension Obesity, morbid, BMI 40.0-49.9 (HCC) Acute otitis media, unspecified otitis media type- Primary Hypertension, unspecified type- Primary Type 2 diabetes mellitus without complication, unspecified whether intermediate teacher insulin use (HCC) Obesity, morbid, BMI 40.0-49.9 (HCC) documented in this encounter [facility] note* Diagnosis Encounter to establish care- Primary Anxiety and depression Obesity, morbid, BMI 40.0-49.9 (HCC) Elevated BP without diagnosis of hypertension Elevated BP without diagnosis of hypertension- Primary Type 2 diabetes mellitus without complication, unspecified whether intermediate teacher insulin use (HCC) Anxiety and depression Elevated BP without diagnosis of hypertension- Primary Type 2 diabetes mellitus without complication, unspecified whether intermediate teacher insulin use (HCC) Obesity, morbid, BMI 40.0-49.9 (HCC) Anxiety and depression Sore throat- Primary Acute pharyngitis Right ear pain Unspecified otalgia Type 2 diabetes mellitus without complication, unspecified whether intermediate teacher insulin use (HCC) Hypertension, unspecified type Hypertension, unspecified type- Primary Type 2 diabetes mellitus without complication, unspecified whether intermediate teacher insulin use (HCC) Anxiety and depression Type 2 diabetes mellitus without complication, unspecified whether intermediate teacher insulin use (HCC)- Primary Primary hypertension Unspecified essential hypertension Obesity, morbid, BMI 40.0-49.9 (HCC) Acute otitis media, unspecified otitis media type- Primary Hypertension, unspecified type- Primary Type 2 diabetes mellitus without complication, unspecified whether intermediate teacher insulin use (HCC) Obesity, morbid, BMI 40.0-49.9 (HCC) [facility]No reason for referral information availableWBluffton [facility] Work Phone: Summary Purpose Family History No Family History Records Found Relationship Condition Age at Onset Recorded Date/T yoni mother Diabetes mellitus Unknown Hypertension Unknown father Hyperlipidemia Unknown sister Diabetes mellitus Unknown grandmother Diabetes mellitus Unknown Advance Directives No Advanced Directives Records FoundDocuments on File Type Date 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 Customer Service/Billing Questions: [phone] MyChart Assistance: [phone] or [phone] Financial Assistance: [phone] or [phone] As of August 07, 2019 my schedule [...] look into their status. Customer Service/Billing Questions: [phone] MyChart Assistance: [phone] or [phone] Financial Assistance: [phone] or [phone] As of August 07, 2019 my schedule will be changing: Wednesday 7 am to 5 pm Wednesday 7 am to 5 pm Wednesday closed 7 am to 5 pm Wednesday 7 am to 1 pm documented in this encounter History of Present Illness * Zita Randolph MD - 10/07/2020 9:11 AM EST Chief Complaint Patient presents with [facility] Anxiety FEEL LIKE BEEN GOING ON [...] Up bp and anxiety. ZITA RANDOLPH MD [facility] [address] [facility] [address] [facility] [address] Dept: [phone] documented in this encounter* Zita Randolph MD [...] No follow-ups on file. ZITA RANDOLPH MD [place] [id number] [facility] [address] Dept: [phone] documented in this encounter* Luz Elena Sherman [...] Physical Findings: Food Allergies/Intolerances: NFKA Cultural or Latter-Day Dietary Needs: Denies Current Activity Level: Moderately [...] True [0] Estimated Nutritional Needs: Calorie Needs: 3932-7591 kcals/day [MSJ x 1.3AF -500/1000 kcals/day to [...] Color coded meal & snack planning handout, ADA web site for quickmeal ideas, plate method/meal planning, Hypoglycemia handout, DSME/S 2020 class schedule [emailed to patient] Monitoring/Evaluation: SMBG, Weight, Food Record/Recall, Meal Planning, Physical Activity, Medication Management, Goal Assessment Luz Elena Sherman RDN, LD Personal Office documented in this encounter* Luz [...] Physical Findings: Food Allergies/Intolerances: NFKA Cultural or Latter-Day Dietary Needs: Denies Current Activity Level: Moderately [...] True [0] Estimated Nutritional Needs: Calorie Needs: 6650-2345 kcals/day [MSJ x 1.3AF -500/1000 kcals/day to [...] Color coded meal & snack planning handout, [employer] web site for quickmeal ideas, plate method/meal planning, Hypoglycemia handout, DSME/S 2020 class schedule [emailed to patient] Monitoring/Evaluation: SMBG, Weight, Food Record/Recall, Meal Planning, Physical Activity, Medication Management, Goal Assessment Luz Elena Sherman RDN, TIMMY Personal Office documented in this encounter* Branyd Bentley RN - 10/31/2020 3:10 PM EDT [facility] DIABETES SELF-MANAGEMENT EDUCATION AND SUPPORT PROGRAM Patient [...] file Gets together: Once a week Attends confucianism service: Not on file Active member of club or organization: Not on file Attends meetings of clubs or organizations: Not on file Relationship status: Not on file Other Topics Concern Not on file Social History Narrative living with in own house and has custody of nieces. 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 History From: History obtained from chart review and the patient. Current/Pertinent Medications: Current Outpatient Medications Ordered in [employer] Medication Sig Dispense Refill blood sugar diagnostic [...] daily . 30 tablet 0 No current Epic-ordered facility-administered medications on file. SMBG Results: FBS: [...] doing SMBG FBS. See results above. Sees ROW BOSS for the 1st time within the next [...] sugar more frequently once she sees the ROW BOSS. Discussed with Kvng Sherman RD who will be calling pt to discuss further nutritional goals with her. Discussed SMBG including times to test and tips given for more comfortable testing. Advised pt that her blood sugar goals will probably be more strict while she is and that her insulin schedule may change to get better control. Advised her to let her ROW BOSS know that she is having DSME/MNT and to let this educator know what changes her ROW BOSS wants for her. Gestational blood glucose record [...] the relationship of blood glucose levels to mcfp complications of diabetes. Select one: needs instruction [...] Exercise: Measuring Intensity Diabetes Self-Management Support Plan ([facility]) This documentation has been sent to the referring healthcare provider. documented in this encounter Assessments Diagnosis Encounter to establish care- Primary Anxiety and depression Obesity, morbid, BMI 40.0-49.9 (HCC) Elevated BP without diagnosis of hypertension Diagnosis Elevated BP without diagnosis of hypertension- Primary Type 2 diabetes mellitus without complication, unspecified whether mcfp insulin use (HCC) Anxiety and depression Diagnosis Type 2 diabetes mellitus without complication, unspecified whether intermediate teacher insulin use (HCC) Diagnosis Type 2 diabetes mellitus without complication, unspecified whether mcfp insulin use (HCC) Reason for Referral Status Reason Specialty Diagnoses / Procedures Referred By Contact Referred To Contact Pending Review Diagnoses Type 2 diabetes mellitus without complication, unspecified whether mcfp insulin use (HCC) Zita Randolph MD [address] [place] [id number] Status Reason Specialty Diagnoses / Procedures Referred By Contact Referred To Contact Authorized Specialty Services Required/Patien t's Best Interest Nutrition Diagnoses Type 2 diabetes mellitus without complication, unspecified whether mcfp insulin use (HCC) Zita Randolph MD [address] [address] Nutrition Services [address] [place] [phone] Status Reason Specialty Diagnoses / Procedures Referre d By Contact Referred To Contact Closed Diagnoses Type 2 diabetes mellitus without complication, unspecified whether mcfp insulin use (HCC) Zita Randolph MD [address] [address] Specialty Diagnoses / Procedures Referred By Contac t Referred To Contact Endocrinology Diagnoses Type 2 diabetes mellitus without complication, unspecified whether intermediate teacher insulin use (HCC) Zita Randolph MD [address] [place] [phone] Counts Include 234 Beds At [facility] [address] [place] [phone] Referral ID Status Reason Start Date Expiration Date V isits Requested Visits Authorized [id number] Authorized 09/10/2022 09/10/2023 1 1 Specialty Diagnoses / Procedures Referred By Contac t Referred To Contact Nutrition Diagnoses Type 2 diabetes mellitus without complication, unspecified whether intermediate teacher insulin use (HCC) Zita Randolph MD [address] [place] [phone] Nutrition Services [address] [place] [phone] Referral ID Status Reason Start Date Expiration Date V isits Requested Visits Authorized [id number] Authorized 09/10/2022 09/10/2023 1 1 Specialty Diagnoses / Procedures Referred By Contac t Referred To Contact Web Site Manager Diagnoses Type 2 diabetes mellitus without complication, unspecified whether intermediate teacher insulin use (HCC) Zita Randolph MD [address] [place], [place] [phone] Referral ID Status Reason Start Date Expiration Date Visits Requested Visits Authorized [id number] Authorized Specialty Services Required/Pat ient's Best Interest 09/10/2022 09/10/2023 1 1 Specialty Diagnoses / Procedures Referred By Contac t Referred To Contact Diagnoses Type 2 diabetes (HCC) Procedures CONSULT TO DIABETES EDUCATION DSME/MNT MEDICAL NUTRITION ASSMT&IVNTJ INDIV EACH 15 ID MEDICAL NUTRITION ASSMT&IVNTJ INDIV EACH 15 ID MEDICAL NUTRITION ASSMT&IVNTJ INDIV EACH 15 ID MEDICAL NUTRITION ASSMT&IVNTJ INDIV EACH 15 ID Yossi Alcazar V, MD [address] [place] [address] Referral ID Status Reason Start Date Expiration Date Visits Requested Visits Authorized [id number] Authorized PCP Requested Referral 06/09/2023 06/08/2024 1 [...] September 25, 2024 8:32am Supervision of high-risk [facility]2024 8:32am Hypertension September 25, 2024 8:32am Type [...] September 25, 2024 8:32am Supervision of high-risk [facility]2024 8:32am Hypertension September 25, 2024 8:32am Type [...] September 25, 2024 8:32am Supervision of high-risk [facility]2024 8:32am Hypertension September 25, 2024 8:32am Type [...] antepartum December 3:37pm Obesity affecting January 17, 2 025 [...] antepartum January 1:37pm Obesity affecting February 12, 2 025 [...] January 17, 2025 3:37pm Obesity affecting January 17 2 025 3:37pm January 17, 2025 3:37 [...] 10:38am Hypertension March 23, 2025 10 :38am Chief Complaint Admit Date 20wk ob December [...] IN , HTN March 13, 2025 3:35pm BIOPHYSICAL PROFILE March 16, 2025 12 :00am 33 WK NST ONLY March 16, 2025 1: 26pm BIOPHYSICAL PROFILE March 16, 2025 2: 15pm BIOPHYSICAL PROFILE March 17, 2025 10 :58am WELL BEING, DIABETES IN , HTN March 20, 2025 3:31pm 34 WK OB/NST March 23, 2025 10 :38am WELL BEING, DIABETES IN , HTN March 27, 2025 3:30pm WELL BEING, DIABETES IN , HTN March 30, 2025 3:34pm WELL BEING, DIABETES IN , HTN April 03, 2025 3:38pm NST April 03, 2025 4:40pm Additional Source Comments INFORMATION SOURCE (unrecogn ized section and content) DATE CREATED AUTHOR 2018 [facility] DATE CREATED AUTHOR AUTHOR'S ORGANIZ ATION 12/28/2021 [facility] DATE CREATED AUTHOR AUTHOR'S ORGANIZ ATION 2023 [facility] DATE CREATED AUTHOR AUTHOR'S ORGANIZ ATION 02/17/2025 [facility] DATE CREATED AUTHOR AUTHOR'S ORGANIZ ATION 03/04/2025 [facility] DATE CREATED AUTHOR AUTHOR'S ORGANIZ ATION 04/03/2025 [facility] Reason for Visit (unrecogniz ed section and content) Reason Comments Advice Only Reason Comments Establish Care Anxiety FEEL LIKE BEEN GOING ON FOR YEARS BUT HAS INCREASED FEELING LATELY Reason Comments Diabetes FOLLOW-UP Status Reason Specialty Diagnoses / Procedures Referred By Contact Referred To Contact Authorized Specialty Services Required/Patien t's Best Interest Nutrition Diagnoses Type 2 diabetes mellitus without complication, unspecified whether intermediate teacher insulin use (HCC) Zita Randolph MD [address] [place], [place] [phone] Nutrition Services [address] [place] [phone] Reason Onset Date Comments Medication Refill 10/25/2020 Reason Onset Date Comments Medication Refill 10/31/2020 Reason Comments Diabetes Mellitus Status Reason Specialty Diagnoses / Procedures Referred By Contact Referred To Contact Authorized Specialty Services Required/Patien t's Best Interest Nutrition Diagnoses Type 2 diabetes mellitus without complication, unspecified whether mcfp insulin use (HCC) Zita Randolph MD [facility] [address] [address] Nutrition Services [address] [place] [phone] Reason Onset Date Comments Medication Refill 11/25/2020 [...] Never doneOphthalmology Exam Never doneUrine Microalbumin Never [id number] due on 03/25/2022 Reason Onset Date Comments [...] January 17, 2025 End: January 17, 2025 Funeral Assistant Relationship Specialty Start Date End Date Zita Randolph MD [address] [phone] PCP - General Family Medicine 10/01/20 Zita Randolph MD [address] [place] [id number] PCP - BARBARA [facility] Provider - [employer] 03/02/21 07/31/21 Funeral Assistant Relationship Specialty Start Date End Date Zita Randolph MD [address] [address] PCP - General Family Medicine 10/01/20 Zita Randolph MD [address] [address] PCP - BARBARA Attributed Provider - [employer] 03/02/21 08/01/50 Funeral Assistant Relationship Specialty Start Date End Date Zita Randolph MD [address] [address] PCP - General Family Medicine 10/01/20 Zita Randolph MD [address] [address] PCP - BARBARA Attributed Provider - [employer] 03/02/21 08/01/50 Funeral Assistant Relationship Specialty Start Date End Date Zita Randolph MD [address] [address] PCP - General Family Medicine 10/01/20 Zita Randolph MD [address] [address] PCP - BARBARA Attributed Provider - [employer] 03/02/21 08/01/50 Funeral Assistant Relationship Specialty Start Date End Date Zita Randolph MD [address] [address] PCP - General Family Medicine 10/01/20 Zita Randolph MD [address] [address] PCP - BARBARA Attributed Provider - [employer] 03/02/21 08/01/50 Funeral Assistant Relationship Specialty Start Date End Date Zita Randolph MD [address] [address] PCP - General Family Medicine 10/01/20 Zita Randolph MD [address] [address] PCP - BARBARA Attributed Provider - [employer] 03/02/21 08/01/50 Funeral Assistant Relationship Specialty Start Date End Date Zita Randolph MD [address] [place] [phone] PCP - General Family Medicine 10/01/20 Zita Randolph MD [facility] [place] [phone] PCP - BARBARA Attributed Provider - [employer] 03/02/21 08/01/50 Funeral Assistant Relationship Specialty Start Date End Date Zita Randolph MD [address] [place] [phone] PCP - General Family Medicine 10/01/20 Zita Randolph MD [address] [place] [address] PCP - BARBARA Attributed Provider - [employer] 03/02/21 08/01/[address] Dietitian Case Management 12/31/22 Funeral Assistant Relationship Specialty Start Date End Date Zita Randolph MD [facility] [address] [id number] PCP - General Family Medicine 10/01/20 Zita Randolph MD [address] [id number] PCP - BARBARA Attributed Provider - [employer] 03/02/21 08/01/50 Funeral Assistant Relationship Specialty Start Date End Date Zita Randolph MD [address] [id number] PCP - General Family Medicine 10/01/20 Zita Randolph MD [facility] [id number] PCP - BARBARA Attributed Provider - [employer] 03/02/21 08/01/50 Funeral Assistant Relationship Specialty Start Date End Date Zita Randolph MD [address] [id number] PCP - General Family Medicine 10/01/20 Zita Randolph MD [facility] [address] [id number] PCP - BARBARA Attributed Provider - [employer] 03/02/21 08/01/50 Funeral Assistant Relationship Specialty Start Date End Date Zita Randolph MD [address] [id number] PCP - General Family Medicine 10/01/20 Zita Randolph MD [address] [id number] PCP - BARBARA Attributed Provider - [employer] 03/02/21 08/01/50 Team Status: Active Member Role Status Dates No Primary Care Physician Primary Care Provider Active Start: September 08, 2024 Malissa Meneses RN Attending Provider Active St art: September 08, 2024 Funeral Assistant Relationship Specialty Start Date End Date Zita Randolph MD [address] [id number] PCP - General Family Medicine 10/01/20 Funeral Assistant Relationship Specialty Start Date End Date Zita Randolph MD [address] [id number] PCP - General Family Medicine 10/01/20 Team Status: Active Member Role/Relationship Status Dates No Primary Care Physician Primary Care Provider Active Team Status: Inactive Member Role/Relationship Status Dates No Primary Care Physician Primary Care Provider Active Start: October 23, 2024 End: October 23, 2024 No Primary Care Physician Referring Provider Active Start: October 23, 2024 End: October 23, 2024 Dr. Magalys Stoner , Attending Provider Activ e Start: October 23, [...] 2025 End: February 12, 2025 Rebecca Jackson CORRUGATOR OPERATOR, CORRUGATOR OPERATOR-C Attending Provider Active Start: February 12, 2025 End: February 12, 2025 Team Status: Active Member Role/Relationship Status Dates No Primary Care Physician Primary Care Provider Active Start: February 12, 2025 Rebecca Jackson CORRUGATOR OPERATOR, CORRUGATOR OPERATOR-C Attending Provider Active Start: February 12, 2025 Rebecca Jackson CORRUGATOR OPERATOR, CORRUGATOR OPERATOR-C Referring Provider Active Start: February 12, 2025 Team Status: Inactive Member Role/Relationship Status Dates No Primary Care Physician Primary Care Provider Active Start: February 12, 2025 End: February 12, 2025 Rebecca Jackson CORRUGATOR OPERATOR, CORRUGATOR OPERATOR-C Attending Provider Active Start: February 12, 2025 End: February 12, 2025 Rebecca Renetta CORRUGATOR OPERATOR, CORRUGATOR OPERATOR-C Referring Provider Active Start: February 12, 2025 [...] 2025 End: February 12, 2025 Rebecca Jackson CORRUGATOR OPERATOR, CORRUGATOR OPERATOR-C Attending Provider Active Start: February 12, 2025 End: February 12, 2025 Team Status: Inactive Member Role/Relationship Status Dates No Primary Care Physician Primary Care Provider Active Start: February 12, 2025 End: February 12, 2025 Rebecca Jackson CORRUGATOR OPERATOR, CORRUGATOR OPERATOR-C Attending Provider Active Start: February 12, 2025 End: February 12, 2025 Rebecca Jackson CORRUGATOR OPERATOR, CORRUGATOR OPERATOR-C Referring Provider Active Start: February 12, 2025 [...] February 26, 2025 End: February 26, 2025 Funeral Assistant Relationship Specialty Start Date End Date Zita Randolph MD [address] [place], [place] [id number] PCP - General Family Medicine 10/01/20 Funeral Assistant Relationship Specialty Start Date End Date Zita Randolph MD [address] [place] [id number] PCP - General Family Medicine 10/01/20 Team [...] 2025 End: February 12, 2025 Rebecca Jackson CORRUGATOR OPERATOR, CORRUGATOR OPERATOR-C Attending Provider Active Start: February 12, 2025 End: February 12, 2025 Team Status: Inactive Member Role/Relationship Status Dates No Primary Care Physician Primary Care Provider Active Start: February 12, 2025 End: February 12, 2025 Rebecca Jackson CORRUGATOR OPERATOR, CORRUGATOR OPERATOR-C Attending Provider Active Start: February 12, 2025 End: February 12, 2025 Rebecca Jackson CORRUGATOR OPERATOR, CORRUGATOR OPERATOR-C Referring Provider Active Start: February 12, 2025 [...] March 20, 2025 End: March 20, 2025 Team Status: Active Member Role/Relationship Status Dates No Primary Care Physician Primary Care Provider Active Start: March 16, 2025 Veronica Winter CNM Attending Provider Active Start: March 16, 2025 Veronica Winter CNM Referring Provider Active Start: March 16, 2025 Team Status: Inactive Member [...] Star t: March 17, 2025 Team Status: Inactive Member Role/Relationship Status Dates Dr. Mae Reeves MD Attending Provider Active Start: March 20, 2025 End: March 20, 2025 Dr. Mae Reeves MD Referring Provider Active Start: March 20, 2025 End: March 20, 2025 ZITA RANDOLPH MD Primary Care Provider Active Start: March 20, 2025 End: March 20, 2025 Team Status: Inactive Member Role/Relationship Status Dates No Primary Care Physician Referring Provider Active Start: March 23, 2025 End: March 23, 2025 Dr. Mae Reeves MD Attending Provider Active Start: March 23, 2025 End: March 23, 2025 ZITA RANDOLPH MD Primary Care Provider Active Start: March 23, 2025 End: March 23, 2025 Team Status: Active Member Role/Relationship Status Dates Dr. Mae Reeves MD Attending Provider Active Start: March 27, 2025 Dr. Mae Reeves MD Referring Provider Active Start: March 27, 2025 ZITA RANDOLPH MD Primary Care Provider Active Start: March 27, 2025 Team Status: Active Member Role/Relationship Status Dates ZITA RANDOLPH MD Primary Care Provider Active Start: March 30, 2025 Dr. Mae Reeves MD Attending Provider Active Start: March 30, 2025 Dr. Mae Reeves MD Referring Provider Active Start: March 30, 2025 Team Status: Active Member Role/Relationship Status Dates Dr. Mae Reeves MD Attending Provider Active Start: April 03, 2025 Dr. Mae Reeves MD Referring Provider Active Start: April 03, 2025 ZITA RANDOLPH MD Primary Care Provider Active Start: April 03, 2025 Team Status: Inactive Member Role/Relationship Status Dates ZITA RANDOLPH MD Primary Care Provider Active Start: April 03, 2025 End: April 03, 2025 Dr. Mae Reeves MD Attending Provider Active Start: April 03, 2025 End: April 03, 2025 Dr. Mae Reeves MD Referring Provider Active Start: April 03, 2025 End: April 03, 2025 Source Comments (unrecognize d section and content) In the event this informatio n is protected by the [facility] Confidentiality of Alcohol and Drug Abuse Patient Records regulations: The Federal rules restrict any use of the information to criminally investigate or prosecute any alcohol or drug abuse patient.[facility] the event this information is protected by the Federal Confidentiality of Alcohol and Drug Abuse Patient Records regulations: The Federal rules restrict any use of the information to criminally investigate or prosecute any alcohol or drug abuse patient.[facility] the event this information is protected by the Federal Confidentiality of Alcohol and Drug Abuse Patient Records regulations: The Federal rules restrict any use of the information to criminally investigate or prosecute any alcohol or drug abuse patient.[facility] Goals (unrecognized section and content) Goals [...] BE BASED ON THE PRIMARY CLINICAL RECORDS. [facility]. provides no warranty or guarantee of the accuracy or completeness of information in this document.
== END | disposition home or self-care (01) ==
LOC: US 15:38
PROVIDERS: PCP Family Medicine; Referring Provider Obstetrics & Gynecology; Visit Provider Obstetrics & Gynecology
DX: O24.112 Pre-existing type 2 diabetes mellitus, in pregnancy, second trimester (principal); I10 Essential (primary) hypertension; Z3A.00 Weeks of gestation of pregnancy not specified
CPT/HCPCS: 76816; 76819

== ENCOUNTER → 2025-04-06 | Outpatient (CLI) | payer BC, SELFPAY ==
--- NOTE | 2025-04-06 09:32 | US_ITS ---
PROCEDURE: OB BIOPHYSICAL PROF W/O NST 04/06/2025 REASON FOR EXAM: WELL BEING TECHNIQUE: Procedure Code: USBIOWO Modality: US Procedure: OB BIOPHYSICAL PROF W/O NST COMPARISON: Prior study dated April 03, 2025. FINDINGS Number: 1 Position: Vertex Placental Position: Posterior and not low-lying. Placental Abnormalities: No evidence of previa. ESTIMATED GESTATIONAL AGE: Baseline: 36 weeks and 3 days ESTIMATED DATE OF DELIVERY: Baseline: May 01, 2025. BIOPHYSICAL ASSESSMENT: Amniotic Fluid Volume: 6.8 cm Amniotic Fluid Index: 20.5 cm (8-24 cm normal range) Cardiac Motion: 152 beats per minute (average) Trunk and Limb Motion: Present. Biophysical profile: Breathing movements: 2 Gross body movements: 2 tone: 2 Amniotic fluid volume: 2 Total score: 8/8 US/OB Biophysical Prof W/O NST IMPRESSION: Normal biophysical profile. Reading Location: [place] [address]
== END | disposition home or self-care (01) ==
LOC: US 09:31
PROVIDERS: PCP Family Medicine; Referring Provider Obstetrics & Gynecology; Visit Provider Obstetrics & Gynecology
DX: O24.112 Pre-existing type 2 diabetes mellitus, in pregnancy, second trimester (principal); I10 Essential (primary) hypertension; O99.212 Obesity complicating pregnancy, second trimester; Z3A.00 Weeks of gestation of pregnancy not specified
CPT/HCPCS: 76819

== ENCOUNTER → 2025-04-10 | Outpatient (CLI) | payer BC, SELFPAY ==
--- NOTE | 2025-04-10 15:38 | US_ITS ---
PROCEDURE: OB BIOPHYSICAL PROF W/O NST 04/10/2025 REASON FOR EXAM: WELL BEING TECHNIQUE: Procedure Code: USBIOWO Modality: US Procedure: OB BIOPHYSICAL PROF W/O NST COMPARISON: Prior study dated April 06, 2025. FINDINGS Number: 1 Position: Vertex Placental Position: Posterior and not low-lying Placental Abnormalities: No evidence of previa. ESTIMATED GESTATIONAL AGE: Baseline: 37 weeks and 0 days ESTIMATED DATE OF DELIVERY: Baseline: May 01, 2025 BIOPHYSICAL ASSESSMENT: Amniotic Fluid Volume: 7.4 cm Amniotic Fluid Index: 17.3 (8-24 cm normal range) Cardiac Motion: 148 beats per minute (average) Trunk and Limb Motion: Present. MATERNAL ANATOMY: Adnexa: Neither maternal ovary is successfully identified. Biophysical profile: Breathing movements: 2 Gross body movements: 2 tone: 2 Amniotic fluid volume: 2 Total score: 8/8 US/OB Biophysical Prof W/O NST IMPRESSION: Normal biophysical profile examination. Reading Location: [facility]
== END | disposition home or self-care (01) ==
LOC: US 15:37
PROVIDERS: PCP Family Medicine; Referring Provider Obstetrics & Gynecology; Visit Provider Obstetrics & Gynecology
DX: O24.112 Pre-existing type 2 diabetes mellitus, in pregnancy, second trimester (principal); O16.2 Unspecified maternal hypertension, second trimester; Z3A.00 Weeks of gestation of pregnancy not specified
CPT/HCPCS: 76819

== ENCOUNTER 2025-04-13 12:15 | Inpatient (IN) | payer BC, SELFPAY ==
--- NOTE | 2025-04-13 10:01 | US_ITS ---
PROCEDURE: OB BIOPHYSICAL PROF W/O NST 04/13/2025 REASON FOR EXAM: WELL BEING TECHNIQUE: Procedure Code: USBIOWO Modality: US Procedure: OB BIOPHYSICAL PROF W/O NST COMPARISON: Prior study dated April 10, 2025. FINDINGS Number: 1 Position: Vertex Placental Position: Posterior and not low-lying Placental Abnormalities: No evidence of previa. ESTIMATED GESTATIONAL AGE: Baseline: 37 weeks and 3 days ESTIMATED DATE OF DELIVERY: Baseline: May 01, 2025. BIOPHYSICAL ASSESSMENT: Amniotic Fluid Volume: 6.9 cm Amniotic Fluid Index: 18.5 cm (8-24 cm normal range) Cardiac Motion: 144 beats per minute (average) Trunk and Limb Motion: Present. Biophysical profile: Breathing movements: 0 Gross body movements: 2 tone: 2 Amniotic fluid volume: 2 Total score: 6/8 US/OB Biophysical Prof W/O NST IMPRESSION: Biophysical profile score of 6/8. The referring physician's office was notifie d of the results. The patient was sent to the referring physician's office. Reading Location: [id number]
[2025-04-13 12:44] VITALS: BMI 45.6
[2025-04-13 13:14] VITALS: BP 138/76; PULSE 112; RESP 14; TEMP 35.6
[2025-04-13 13:41] VITALS: TEMP 35.6
[2025-04-13 13:53] LABS: Hematocrit 34.8 % (37-47); Hemoglobin 11.8 g/dL (12.0-15.0); Immature Granulocytes Count 0.100 X10^3/uL (0.0-0.0); Mean Corp Hgb Conc 33.9 g/dL (32-36); Mean Corpuscular Volume 86.8 fL (81-99); Mean Platelet Vol. 9.4 fl (6.2-12.0); NRBC Flagged by Analyzer 0 % (0-5); Platelet Count 294 K/mm3 (150-450); RBC Distribution Width CV 14.1 % (11.6-14.6); RBC Distribution Width SD 43.5 fl (35.1-43.9); Red Blood Count 4.01 M/mm3 (4.2-5.4); White Blood Count 12.1 K/mm3 (4.4-11.0)
[2025-04-13 14:10] LABS: AST(SGOT) 15 U/L (<=31); Uric Acid 3.6 mg/dL (2.6-6.0)
[2025-04-13 14:11] LABS: Creatinine, Urine (random) 37.10 mg/dL (28.00-217.00); Protein, Urine (Random) 13.8 mg/dL (0.0-12.0); Protein:Creat Ratio 372 mg/g CRE (0-200)
[2025-04-13 14:20] LABS: Alanine Aminotransfer ALT/SGPT 12 U/L (<=34); Estimated Creatinine Clearance 236.22 ml/min (50-250); Syphilis Antibodies Nonreactive (Nonreactive)
[2025-04-13 15:00] VITALS: BP 129/69; PULSE 101
[2025-04-13 16:47] VITALS: BP 136/78; PULSE 104; TEMP 36.7
--- NOTE | 2025-04-13 18:18 | HP.PCM.OB_ITS ---
HPI - General General Date of Admission: 04/13/25 HPI Narrative ROBIN ALMAGUER, is a 34 F who presents with variable deceles and 6/8 bpp for IOL Maternal Data Information GIANFRANCO Calculator Estimated Delivery Date Method Current WG Current Estimate 05/01/25 LMP (Certain) 37w 4d Other Estimates 05/03/25 Ultrasound #1 37w 2d PFSH PFSH Medical History 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 Diabetes mellitus History of tetanus, diphtheria, and acellular pertussis booster vaccination (Tdap) Home Medications ?Medication ?Instructions ?Recorded ?Last Taken ?Type multivitamin no.47-iron fum 27 1 cap PO DAILY Check wi th primary 11/05/20 04/13/25 History mg-folate no.1 1 mg-dha 300 mg doctor capsule (PNV-DHA) sertraline 50 mg tablet (Zoloft) 50 mg PO DAILY Check with primary 11/05/20 04/03/25 08:00 History doctor 50 mg metformin 500 mg tablet 500 mg PO BID Check with [facility] 09/08/24 04/13/25 History doctor blood-glucose sensor (FreeStyle #6 ea 09/25/24 Unknown Rx Kelsea 3 Plus Sensor device) pen needle, diabetic 32 gauge x #150 ea 09/25/24 Unkno wn Rx 5/32 (BD Ultra-Fine Kiah Pen Needle) insulin glargine 100 unit/mL (3 55 unit subcut BID DM 03/16/25 04/13/25 08:00 History mL) subcutaneous pen (Lantus Solostar U-100 Insulin) insulin lispro 100 unit/mL 22 unit subcut .COMPLEX Cristal betic 03/16/25 04/13/25 14:14 History subcutaneous pen labetalol 200 mg tablet 200 mg PO BID htn 03/16/25 0 04/13/25 History Allergy/AdvReac Type Severity Reaction Status Date / Time No Known Allergies Allergy Verified 04/13/25 13:16 Family History Mother Diabetes type 2 Hypertension Father Hyperlipemia Sister Diabetes type 2 Grandmother Diabetes type 2 Surgical History History of tonsillectomy and adenoidectomy Social History adopted: No household members: spouse, children and other details: Has custody of 2 neices housing: house number of children: 1 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 occupational exposures/hazards: No pets and animals: No history of recent travel: No sexually active: Yes Smoking Status: Never smoker second hand exposure: No alcohol intake: never substance use type: does not use diet: diabetic well-balanced diet: daily or most days caffeine: No eating out: rarely or never during the past year weight has: remained stable what type of physical activity do you participate in: walking frequency: 3-4 times per week duration: 15-30 minutes/day geoffrey/bahai: None seatbelt use: always do you feel safe at home: Yes additional social history: : Slade Madden History 2 Elective abortions Hx Para 1 Spontaneous abortions 0 Hx # Term Pregnancies Ectopic pregnancies Hx # Pregnancies Multiple births # of living children 1 Past Pregnancies Del. Date Name GA/Weeks Outcome Route Bth Weight Gen Labor Lgth Anesthesia Del Locatn Provider FOB 06/17/21 Ernie 39 live - full term 8lbs 3oz Male ep idural [facility] SM June Delivery Date: 06/17/21 Last Updated by: Xuan Belcher GDM; mild uterine atony; 1st degree laceration Visit Details Expected Delivery Route/Plan Labor Preferences- CB/BF classes: no labor support person: Slade labor intervention preferences: [] pain management options preferred: epidural cut cord/dad catch: cord : bottle PP control planned: discussed discussed possible routes of delivery and associated risks: [] special requests: [] Plans Covid status: [] Flu vaccine: [] Tdap vaccine: given Rhogam: NA LARC form signed: yes Problem list reviewed and updated with the most current plan of care details and appropriate orders placed. Relevant counseling for the gestational age provided. Continue routine care and follow up unless otherwise noted in visit notes/problem list details OB Flowsheet Initial Weight: Not Recorded Date -?-?-?-?-?-?-?-?-?-?-?-?- EGA Weight BP Urine Prot -?-?-?-?-?-?-?-?-?-?-?-?- Glucose FHR FuHt Pres Dilation -?-?-?-?-?-?-?-?-?-?-?-?- Effaced St Visit Note 09/25/24 -?-?-?-?-?--?-?-?-?-?-?-?- 8w 6d 260 lb 2 oz 146/93 -?-?-?-?-?-?-?-?-?-?-?-?- 186 -?-?-?-?-?-?-?-?-?-?-?-?- JV- CRL consiste nt with LMP. Declines NIPT. has DM and htn. starting labetalol now. will see Dr. Dunne this week. 10/23/24 -?-?-?-?-?-?-?-?-?-?-?-?- 12w 6d 266 lb 6 oz 141/92 Nega tive -?-?-?-?-?-?-?-?-?-?-?-?- Negative -?-?-?-?-?-?-?-?-?-?-?-?- JV- moveme nt seen on ultrasound but due to obesity and extreme movement of the fetus, unable to get the heart tones. Increasing labetalol to 200 tid. pt to continue seeing MFM and Dr. Dunne. 11/20/24 -?-?-?-?-?-?-?-?-?-?-?-?- 16w 6d 270 lb 129/81 Negative -?-?-?-?-?-?-?-?-?-?-?-?- Negative 150 -?-?-?-?-?-?-?-?-?-?-?-?- KW- no vb/crampi ng. + fm, US scheduled 12/05. doing well with BP meds. BS reviewed. accepts AFP screening today. 12/18/24 -?-?-?-?-?-?-?-?-?-?-?-?- 20w 6d 279 lb 4 oz 122/82 Trac e -?-?-?-?-?-?-?-?-?-?-?-?- Negative 156 -?-?-?-?-?-?-?-?-?-?-?-?- JV- low lying pl acenta and pelvic rest discussed. rpt scan coming up for anatomy structures not seen. glucose levels normal. still on labetalol and baby asa 01/17/25 -?-?-?-?-?-?-?-?-?-?-?-?- 25w 1d 277 lb 118/78 Negative -?-?-?-?-?-?-?-?-?-?-?-?- Negative 145 25 -?-?-?-?-?-?-?-?-?-?-?-?- SM- no vb lof go od fm no regular ctx BS controlled bps controlled discussed testing and 38 weeks delivery planning 02/12/25 -?-?-?-?-?-?-?-?-?-?-?-?- 28w 6d 287 lb 122/82 Negative -?-?-?-?-?--?-?-?-?-?-?-?- Negative 142 29 -?-?-?-?-?-?-?-?-?-?-?-?- MH-No VB, LOF. G ood FM. 28 wk labs. BS and HTN controlled. Larc, tdap. 02/26/25 -?--?-?-?-?-?-?-?-?-?-?-?- 30w 6d 286 lb 8 oz 133/79 Nega tive -?-?-?-?-?-?-?-?-?-?-?-?- Negative 145 31 -?-?-?-?-?-?-?-?-?-?-?-?- KW- no vb/lof/ct x. good fm. BPPs and NSTs scheduled. Has noticed increased fatigue over the last couple weeks but also is having elevated PP blood sugars- Fastings still under 95. Will message Dr Dunne for adjustments to insulin. 03/09/25 -?-?-?-?-?-?-?-?-?-?-?-?- 32w 3d 288 lb 2 oz 133/86 Nega tive -?-?-?-?-?-?-?-?-?-?-?-?- Negative 135 -?-?-?-?-?-?-?-?-?-?--?-?- KW- NST reactive . no vb/lof/ctx. good fm 03/16/25 -?-?-?-?-?-?-?-?-?-?-?-?- 33w 3d 290 lb 4 oz 120/79 Nega tive -?-?-?-?-?-?-?-?-?-?-?-?- Negative 135 -?-?-?-?-?-?-?-?-?-?-?-?- KW- NST only. Re active KW- NST only. Reactive but h ad 2 small variables. to WP for BPP 03/23/25 -?-?-?-?-?-?-?--?-?-?-?-?- 34w 3d 290 lb 6 oz 128/83 Trac e -?-?-?-?-?-?-?-?-?-?-?-?- Negative 150 160 -?-?-?-?-?-?-?-?-?-?-?-?- SM- no vb lof go od fm no regular ctx 04/06/25 -?-?-?-?-?-?-?-?-?-?-?-?- 36w 3d 292 lb 5 oz 129/77 Nega tive -?-?-?-?-?-?-?-?-?-?-?-?- Negative 160 -?-?-?-?-?-?-?-?-?--?-?-?- SM- no vb lof go od fm no regular ctx 04/13/25 -?-?-?-?-?-?-?-?-?-?-?-?- 37w 3d 292 lb 6 oz 130/87 Nega tive -?-?-?-?-?-?-?-?-?-?-?-?- Negative 145 1 -?-?-?-?-?-?-?-?-?-?-?-?- 30 -3 KW- no vb/ lof/ctx. good fm. BPP 01/07 NST had variable and sent to for IOL NST FHR Rate Baby A Baseline: 130 Variability:: Moderate Accelerations:: 15 x 15 Decelerations:: None NST Reactive:: Yes FHR Category:: Category I Uterine Activity:: irregular ROS Constitutional Constitutional: Reports systems reviewed and no addt'l complaints, except as documented Eyes Eyes: Denies change in vision ENT HEENT: Reports systems reviewed and no addt'l complaints, except as documented; Denies headache(s) Cardiovascular Cardiovascular: Reports systems reviewed and no addt'l complaints, except as documented; Denies chest pain or dyspnea Respiratory/Chest Respiratory/Chest: Reports systems reviewed and no addt'l complaints, except as documented Gastrointestinal Gastrointestinal: Reports systems reviewed and no addt'l complaints, except as documented; Denies abdominal pain Genitourinary Genitourinary: Reports systems reviewed and no addt'l complaints, except as documented, contractions Details: present (irregular) and movement Details: present; Denies dysuria or genital lesions Musculoskeletal Musculoskeletal: Reports systems reviewed and no addt'l complaints, except as documented Neurologic Neurologic: Reports systems reviewed and no addt'l complaints, except as documented Endocrine Endocrinology: Reports systems reviewed and no addt'l complaints, except as documented Vital Signs Vital Signs Vital Signs: 04/13/25 13:14 04/13/25 13:14 04/13/25 13:14 Temperature Temperature Source Tympanic Pulse Rate 112 H Respiratory Rate Blood Pressure 138/76 H BP Systolic 138 BP Diastolic 76 04/13/25 13:14 04/13/25 13:14 04/13/25 13:41 Temperature 96.0 F L 96.1 F L Temperature Source Pulse Rate Respiratory Rate 14 Blood Pressure BP Systolic BP Diastolic 04/13/25 15:00 04/13/25 15:00 04/13/25 16:47 Temperature Temperature Source Pulse Rate 101 H Respiratory Rate Blood Pressure 129/69 H 136/78 H BP Systolic 129 136 BP Diastolic 69 78 04/13/25 16:47 04/13/25 16:47 Temperature 98.1 F Temperature Source Pulse Rate 104 H Respiratory Rate Blood Pressure BP Systolic BP Diastolic Weight Weight: 291 lb 0.163 oz Body Mass Index (BMI) 45.6 Physical Exam Const alert, oriented x3, no apparent distress and healthy appearing HEENT normocephalic and moist oral mucous membranes Head and Scalp: atraumatic Neck full ROM, no lymphadenopathy, supple and thyroid normal General: trachea midline Lymph Lymphatic: no lymphadenopathy noted Chest inspection of chest normal Resp normal respiratory effort Cardio regular rate GI soft to palpation and non-tender GI Narrative: gravid Inspection: gravid external exam normal Manual OB Exam: estimated gestational size appropriate, presentation cephalic, dilated, effaced and station Extremity normal to inspection General Extremity: Negative for edema Skin no rashes or lesions noted Neuro no focal motor deficits and deep tendon reflexes 2+ bilaterally Motor Exam: strength 5/5 throughout and clonus absent Psych mental status grossly normal Labs Labs Labs: Blood Type O POSITIVE Antibody Screen NEGATIVE Hct 34.8 % (37-47) L Hgb 11.8 g/dL (12.0-15.0) L Obstetrics Ultrasound Syphilis Total Ab Nonreactive (Nonreactive) Rubella IgG Antibody Reactive (Nonreactive) Hep Bs Antigen Non-Reactive (Nonreactive) Hepatitis C Antibody Non-Reactive (Nonreactive) Chlamydia DNA (NENITA) Negative (Negative) N.gonorrhoeae DNA (NENITA) Negative (Negative) HIV 1&2 Antibody Nonreactive (Nonreactive) Miscellaneous Test Assessment & Plan (1) Anxiety: COMMENT: Zoloft , encouraged counseling. Stable (2) Diabetes mellitus: QUALIFIERS: Diabetes mellitus type: type 2 Diabetes mellitus long-term insulin use: without long-term use Diabetes mellitus complication status: without complication Qualified Code(s): E11.9 - Type 2 diabetes mellitus without complications COMMENT: Type 2 - On Metformin & insulin (3) Hypertension: QUALIFIERS: Hypertension type: primary hypertension Qualified Code(s): I10 - Essential (primary) hypertension COMMENT: Labetalol 200 bid if controlled plan 38 weeks delivery, plan weekly BPP and weekly nst from 32 on (4) : QUALIFIERS: Weeks of gestation: 37 weeks Qualified Code(s): Z3A.37 - 37 weeks gestation of COMMENT: Discussed genetic/carrier testing - undecided, neg AFP, nl anatomy (5) Supervision of high-risk : QUALIFIERS: Trimester: second trimester Qualified Code(s): O09.92 - Supervision of high risk , unspecified, second trimester COMMENT: PRR , GIANFRANCO 05/01/25, girl [facility]: Ernie (Has custody of 14yr old twin nieces, Benedict & Believe), : Slade (6) Family history of chromosomal abnormality: COMMENT: Slade's brother has Trisomy 21. Declines genetic testing. (7) Obesity affecting : QUALIFIERS: Trimester: second trimester Obesity type affecting : unspecified obesity Qualified Code(s): O99.212 - Obesity complicating , second trimester COMMENT: unable to get heart views. nl echo. BMI 39.2; HgBA1C ordered w/NOB (8) GBS (group B streptococcus) UTI complicating : QUALIFIERS: Trimester: second trimester Qualified Code(s): O23.42 - Unspecified infection of urinary tract in , second trimester; B95.1 - Streptococcus, group B, as the cause of diseases classified elsewhere (9) Diabetes in : QUALIFIERS: Diabetes in type: pre-existing, type 2 Trimester: second trimester Qualified Code(s): O24.112 - Pre-existing type 2 diabetes mellitus, in , second trimester COMMENT: class B diabetes. growth US q 4 weeks. twice weekly testing 32 on with twice weekly bpp and deliver at 38 (10) Variable heart rate decelerations, antepartum: PLAN: Plan Patient presents IOL, plan management for with cytotec the pitocin/AROM. Pain management: plans epidural. GBS pos plan pcn Management of any complications: diabetes htn I have reviewed the [facility] and made any clinically relevant updates.
[2025-04-13 19:18] VITALS: BP 140/93; PULSE 109; TEMP 36.4
[2025-04-13 20:11] VITALS: BMI 2000.0; BMI 20250912.0
[2025-04-13 23:56] VITALS: BP 121/69; PULSE 92; RESP 16; TEMP 36.6
[2025-04-14] VITALS (47 sets, daily range): BP systolic 114–162; BP diastolic 55–98; PULSE 68–109; RESP 16–18; TEMP 36–36.9; O2SAT 96–100; BMI 20250913.0; BMI 744.0; BMI 2001.0
[2025-04-14] MEDS: 0.9% Saline Lock 10 ML Syringe IV (07:40)
[2025-04-14] MEDS: 0.9% Normal Saline Single 100 ML IV.SOLN. INTRA-UTER (07:55)
--- NOTE | 2025-04-14 08:22 | PCM.PN.BLA ---
Progress Note cat I tracing fb placed will start pitocin
[2025-04-14] MEDS: Penicillin G Pot 5,000,000 UNITS in 0.9% Normal Saline (100mL MB+) 100 ML 150 UNITS IV (08:40)
[2025-04-14] MEDS: Lactated Ringers 1,000 ML 50 ML IV (08:40)
[2025-04-14] MEDS: Oxytocin 15 Units/NS 250ml 15 UNITS/250 ML IV.SOLN 2 UNITS IV (08:42)
[2025-04-14] MEDS: Penicillin G 3,000,000 Units 50 ML 100 UNITS IV ×3 (12:41→20:43)
[2025-04-14] MEDS: Lactated Ringers 1,000 ML 999 ML IV (14:26)
[2025-04-14] MEDS: LACTATED RINGERS 500 ML 999 ML IV (15:38)
[2025-04-14] MEDS: fentaNYL-bupivacaine (epidural) 100 ML BAG EPIDURAL ×2 (15:40→19:31)
[2025-04-14] MEDS: Lactated Ringers 1,000 ML 200 ML IV ×2 (17:21→22:34)
[2025-04-15] VITALS (56 sets, daily range): BP systolic 99–172; BP diastolic 56–97; PULSE 75–121; RESP 14–20; TEMP 35.8–37; O2SAT 95–100; BMI 20250914.0; BMI 801.0
[2025-04-15] MEDS: fentaNYL-bupivacaine (epidural) 100 ML BAG EPIDURAL ×2 (01:03→06:00)
[2025-04-15] MEDS: Penicillin G 3,000,000 Units 50 ML 100 UNITS IV ×2 (01:09→04:31)
[2025-04-15] MEDS: Oxytocin 15 Units/NS 250ml 15 UNITS/250 ML IV.SOLN 26 UNITS IV (03:01)
[2025-04-15] MEDS: Lactated Ringers 1,000 ML 200 ML IV ×2 (04:06→08:52)
[2025-04-15] MEDS: LACTATED RINGERS 500 ML 999 ML IV (04:57)
[2025-04-15] MEDS: Cefazolin 1 GM/5 ML Vial 3 GM IV (09:13)
[2025-04-15] MEDS: TRANEXAMIC ACID 1,000 MG/10 ML ML 1000 MG IV (09:18)
[2025-04-15] MEDS: Lidocaine 2% (5ml sdv) 5 ML VIAL.MPF 3 ML IV (09:19)
[2025-04-15] MEDS: Azithromycin 500 MG Vial (SNAP) IV (09:23)
[2025-04-15] MEDS: Oxytocin 15 Units/NS 250ml 15 UNITS/250 ML IV.SOLN 83 UNITS IV (10:30)
--- NOTE | 2025-04-15 10:57 | NURSING ---
1030 unable to locate fundus for check- lochia small- dr abraham notified states that due to the thickness of the abdominal wall the fundus will likely not be palpable- POC is to monitor lochia discharge and call for a increase in bleeding; will continue to try but will not notify unless lochia increases or pt is symptomatic.
[2025-04-15] MEDS: Ketorolac 30 MG/ML Syringe IV ×3 (11:03→22:46)
--- NOTE | 2025-04-15 11:45 | PCM.PN.BLA ---
Progress Note late entry- pitocin maxed at 26 mU and no cervical change past 6 50 -3, epidural redosed and better pain reflief. cat I tracing. pitocin break done and IUPC replcaed, continued to increase pitocin back up and sitll no cervical change in almost 8 hours, s/p 24 hours of pitocin. discussed exp managenet vs csection, patient wished to proceed with csection.
--- NOTE | 2025-04-15 11:49 | PCM.OPRPT ---
Problems Associated Problem List Diagnoses (1) Variable heart rate decelerations, antepartum: (2) Diabetes in : (3) GBS (group B streptococcus) UTI complicating : (4) Obesity affecting : (5) Family history of chromosomal abnormality: (6) Supervision of high-risk : (7) : (8) Hypertension: (9) Diabetes mellitus: (10) Anxiety: Operative Report (Standard) Operative Information Date of Procedure: 04/15/25
--- NOTE | 2025-04-15 11:50 | OP.PCM_ITS ---
Assessment & Plan (1) Arrest of dilation, delivered, current hospitalization: (2) Variable heart rate decelerations, antepartum: (3) Diabetes in : QUALIFIERS: Diabetes in type: pre-existing, type 2 Trimester: second trimester Qualified Code(s): O24.112 - Pre-existing type 2 diabetes mellitus, in , second trimester COMMENT: class B diabetes. growth US q 4 weeks. twice weekly testing 32 on with twice weekly bpp and deliver at 38 (4) GBS (group B streptococcus) UTI complicating : QUALIFIERS: Trimester: second trimester Qualified Code(s): O23.42 - Unspecified infection of urinary tract in , second trimester; B95.1 - Streptococcus, group B, as the cause of diseases classified elsewhere (5) Obesity affecting : QUALIFIERS: Trimester: second trimester Obesity type affecting : unspecified obesity Qualified Code(s): O99.212 - Obesity complicating , second trimester COMMENT: unable to get heart views. nl echo. BMI 39.2; HgBA1C ordered w/NOB (6) Family history of chromosomal abnormality: COMMENT: Slade's brother has Trisomy 21. Declines genetic testing. (7) Supervision of high-risk : QUALIFIERS: Trimester: second trimester Qualified Code(s): O09.92 - Supervision of high risk , unspecified, second trimester COMMENT: PRR , GIANFRANCO 05/01/25, girl [facility] PC: Ernie (Has custody of 14yr old twin nieces, [place] & Believe), : Slade (8) : QUALIFIERS: Weeks of gestation: 37 weeks Qualified Code(s): Z3A.37 - 37 weeks gestation of COMMENT: Discussed genetic/carrier testing - undecided, neg AFP, nl anatomy (9) Hypertension: QUALIFIERS: Hypertension type: primary hypertension Qualified Code(s): I10 - Essential (primary) hypertension COMMENT: Labetalol 200 bid if controlled plan 38 weeks delivery, plan weekly BPP and weekly nst from 32 on (10) Diabetes mellitus: QUALIFIERS: Diabetes mellitus type: type 2 Diabetes mellitus predatory animal exterminator insulin use: without predatory animal exterminator use Diabetes mellitus complication status: without complication Qualified Code(s): E11.9 - Type 2 diabetes mellitus without complications COMMENT: Type 2 - On Metformin & insulin (11) Anxiety: COMMENT: Zoloft , encouraged counseling. Stable (12) delivery delivered: COMMENT: LTCS aod 6 cm failed IOL ghtn gdm girl bria SM Maternal Data Information GIANFRANCO Calculator Estimated Delivery Date Method Current WG Current Estimate 05/01/25 LMP (Certain) 37w 5d Other Estimates 05/03/25 Ultrasound #1 37w 3d Final GIANFRANCO Source: LMP Operative Report (OB) Procedure Details Date of Procedure: 04/15/25 Procedure Start Time: 09:26 Pre-Operative Diagnosis: Failure to Progress and Other Other Pre-Operative diagnosis: see a/p comments Post-Operative Diagnosis: Same as Pre-operative diagnosis Classification: Scheduled Type of Anesthesia: Epidural Special Medications: none Antibiotic Given: Ancef 3 grams IV x1 and Zithromax 500 mg/5 mL X1 Drain: Garcia to straight drain Estimated Blood Loss: 850 Fluids Replaced: crystalloid Findings Description of surgery: The patient was placed in the dorsal supine position with leftward tilt. Patient was prepped and draped in the normal sterile fashion. Pfannenstiel skin incision was made with the scalpel and carried through to the underlying layer of fascia with the scalpel. Fascia was nicked in the midline and the incision extended laterally. The rectus bellies were dissected off superiorly and i nferiorly with out complication both sharply and bluntly. The peritoneum was entered digitally. The incision was stretched and a low transverse uterine incision was made with the scalpel. The infant's head was delivered atraumatically followed by the anterior and posterior shoulders without complication the rest of the delivered. The cord was clamped and cut and the infant was handed off to awaiting nurse. The placenta was delivered spontaneously immediately following and was noted to be intact and have a three- vessel cord. The uterus was exteriorized cleared of all clots and debris, and the incision was closed in a single layer closure using #1 Monocryl. The ovaries and fallopian tubes were noted to be within normal limits. The uterus was returned to the maternal abdomen and gutters were cleared of all clots and debris. The peritoneum was closed with 3-0 Monocryl in a running fashion. Gloves were changed prior to fascial closure. Fascia was closed with 0 PDS in a running fashion. Subcutaneous tissue was copiously irrigated and the skin was closed with 3-0 Monocryl in a subcuticular fashion. Mepilex dressing was applied without complication. Patient was taken to recovery in stable condition. Surgical findings: nl uterus tubes ovaries Presentation: Vertex Amniotic Membrane Rupture Type: Artificial Amniotic Fluid Description: Clear Placental Delivery Description: Spontaneous Specimen collected: Yes Description of specimen(s) removed: placenta and baby Cord Vessel Description: 3 Vessels Delayed Cord Clamping: Yes Tube Coater linen attendant: Yes Machine Maintenance Mechanic: Memo Robertson Tasks completed by shop assistant: Opening & closing, Retracting and Other (himanshu ting in delivery of the ) Additional office administrative assistant?: No Complications Complications: No Admit VTE Documentation VTE Present on Admission: No VTE Mechan Device Prophylaxis: SCD's Procedures Urinary/Genital 52xxx-59xxx: [id number] [facility]
--- NOTE | 2025-04-15 11:54 | DCINST_ITS ---
Discharge Instructions DC O2, CPAP, BIPAP needs Home O2 Discharge instructions: No Dressing / Incision Discharge Activity: May Not Drive (for 2 weeks or while taking narcotic pain medications.), May Shower and May Take a Tub Bath (in 7 days) May shower in (days): 0 May resume sexual activity in: 4-6 weeks Weight Bearing Status: Full weight bearing Lifting Restrictions: 20 pounds Dressing / Incision Call your doctor if your incision/area has: Continuous Slow Oozing, Sudden Increased Bleeding, Increased Pain/ Swelling, Increased Redness and Foul Smelling Discharge Call your doctor if you observe: Fever of 101 or Higher and Using more than 1 pad per hour (for 2 hours) Suture Line Care: Avoid Pulling/Pushing and Avoid Pinching/Bending Cleanse incision/area with: Soap & Water and Keep Dressing Clean & Dry Follow Up Care Please Follow Up With: Mae Reeves MD When: Call [phone] to make an appointment for an incision check in 1-2 weeks. Test Results: Test results from this visit will be discussed in further detail at your follow- up appointment, if applicable. Discharge Plan Admission Admit Date/Time: 04/13/25 12:15 Attending Provider: Mae Reeves Primary Care Provider: ZITA RANDOLPH Discharge Orders/Prescriptions Prescriptions: New oxycodone-acetaminophen [Percocet] 5-325 mg tablet 1 tab PO Q4H PRN (Reason: pain) 7 Days Qty: 20 0RF naproxen 500 mg tablet 500 mg PO BID PRN PRN (Reason: Pain) Qty: 30 1RF No Action sertraline [Zoloft] 50 mg tablet 50 mg PO DAILY PNV-DHA 27 mg iron-1 mg -300 mg capsule 1 cap PO DAILY metformin 500 mg tablet 500 mg PO BID Rx Instructions: 2 in AM; 2 at bedtime (DME) FreeStyle Kelsea 3 Plus Sensor Device See Rx Instructions .Route Qty: 6 2RF Rx Instructions: As directed (DME) pen needle, diabetic [BD Ultra-Fine Kiah Pen Needle] 32 gauge x 5/32 needle See Rx Instructions .ROUTE .MEDSUPPLY Qty: 150 6RF Rx Instructions: 4 times per day labetalol 200 mg tablet 200 mg PO BID insulin lispro 100 unit/mL insulin pen 22 unit subcut .COMPLEX Rx Instructions: 22 units subcutaneously breakfast and lunch; 26 unit with dinner insulin glargine [Lantus Solostar U-100 Insulin] 100 unit/mL (3 mL) insulin pen 55 unit subcut BID Referrals / Follow Up: ZITA RANDOLPH MD [Primary Care Provider] - Disposition Disposition (needs filled in before D/C Order can be placed): Home, Self Care
[2025-04-15] MEDS: 0.9% Saline Lock 10 ML Syringe IV ×3 (14:04→22:46)
[2025-04-16] VITALS (16 sets, daily range): BP systolic 131–153; BP diastolic 68–94; PULSE 76–107; RESP 16; TEMP 36.1–36.7; O2SAT 96–99
[2025-04-16] MEDS: 0.9% Saline Lock 10 ML Syringe IV ×2 (05:12→10:50)
[2025-04-16] MEDS: Ketorolac 30 MG/ML Syringe IV ×2 (05:12→10:49)
[2025-04-16 05:42] LABS: Hematocrit 30.5 % (37-47); Hemoglobin 10.2 g/dL (12.0-15.0); Mean Corp Hgb Conc 33.4 g/dL (32-36); Mean Corpuscular Volume 89.7 fL (81-99); Mean Platelet Vol. 9.4 fl (6.2-12.0); Platelet Count 230 K/mm3 (150-450); RBC Distribution Width CV 14.3 % (11.6-14.6); RBC Distribution Width SD 45.9 fl (35.1-43.9); Red Blood Count 3.40 M/mm3 (4.2-5.4); White Blood Count 11.1 K/mm3 (4.4-11.0)
[2025-04-16] MEDS: Senna/Docusate Sodium 1 Tablet PO (09:28)
--- NOTE | 2025-04-16 11:21 | PCM.PN.OB ---
Subjective Subjective Patient doing well without complaints. Tolerating PO. Ambulating and voiding without difficulty. feeding well. Denies chest pain, shortness of breath, calf pain/swelling, fevers, chills, lightheadedness. Objective Data Objective Data Vital Signs: Vital Signs Temp Pulse Resp BP Pulse Ox O2 Del Method 97.4 F L 100 16 150/81 H 99 Room Air 04/16/25 08:56 04/16/25 08:56 04/16/25 08:56 04/16/25 08:56 04/16/25 08:56 04/16/25 08:56 Oxygen Delivery Method Room Air Weight: 291 lb 0.163 oz Body Mass Index (BMI) 45.6 Intake & Output: Intake and Output for Last 24 Hours 04/14/25 04/15/25 04/16/25 23:59 23:59 23:59 Intake Total 3604.73 / 3604.73 3504.59 / 3504.59 Output Total 1150 / 1150 3350 / 3350 Balance 2454.73 / 2454.73 154.59 / 154.59 Lab / Micro Data 04/16/25 05:30 04/13/25 13:30 Labs: Laboratory Results - last 24 hr 04/15/25 10:56: POC Glucose 112 H 04/16/25 05:16: POC Glucose 136 H 04/16/25 05:30: WBC 11.1 H, RBC 3.40 L, Hgb 10.2 L, Hct 30.5 L, MCV 89.7, MCH 30.0, MCHC 33.4, RDW Std Deviation 45.9 H, RDW Coeff of Linh 14.3, Plt Count 230, MPV 9.4 04/16/25 10:47: POC Glucose 139 H ROS Constitutional Constitutional: Reports systems reviewed and no addt'l complaints, except as documented Cardiovascular Cardiovascular: Reports systems reviewed and no addt'l complaints, except as documented Respiratory/Chest Respiratory/Chest: Reports systems reviewed and no addt'l complaints, except as documented Gastrointestinal Gastrointestinal: Reports systems reviewed and no addt'l complaints, except as documented Physical Exam Const alert, oriented x3 and no apparent distress HEENT Head and Scalp: atraumatic Resp normal respiratory effort GI soft to palpation and non-tender Inspection: incision intact, healing well and drainage (none) Bimanual Exam - Vag & Uterus: uterus non-tender Uterus Palpation: uterus fundus firm (below Umbilicus) Assessment & Plan (1) delivery delivered: COMMENT: LTCS aod 6 cm failed IOL ghtn gdm girl bria DUMONT PLAN: Plan s/p LTCS PPD # 1 1. routine post care 2. breast feeding- support given 3. rh positive 4. rubella immune monitor bps incresae to TID estart metformin and add SSI
--- NOTE | 2025-04-16 14:15 | CASEMGMT ---
Social Work Assessment Labor and Delivery Unit Patient Address: [address] [place] [address] Phone number: [phone] Date of Referral: 04/15/25 Time of Referral:? 2114 Referred By: Dr. Reeves Date of Intervention: ??04/16/25 Time of Intervention:? 1119 Reason for Referral:? hx of anxiety Sw completed chart review and acknowledges social work consult due to maternal mental health history. Sw presented to bedside and introduced self to mother of baby (NIKKI- Tasia) and father of baby (JOHNNIE- Slade). Sw explained reason for sw involvement and completed psychosocial assessment. History obtained from: medical records, MOB and FOGerald Household composition: Currently residing in the family home is MOB, JOHNNIE, JOHNNIE's 2 neices that they have custody of who are 15 years old, their 3 year old son, Ernie and baby when ready for discharge. Parents deny any problems or concerns with housing, stating that it is safe and secure. Patient's parent/guardian status:? ?NIKKI states that she and JOHNNIE met online and have been together for 12 years. baby is second baby for parents together. No concerns reported of domestic violence or intimate partner violence. Medical History: ?NIKKI is 34 year old female who is 2, para 1- now 2 following labor and delivery of . NIKKI received routine care during with [place] starting in first trimester. NIKKI presented to hospital and required primary due to failure to progress. NIKKI delivered baby on 04/15/25 at 40 weeks gestation. Baby girl, named Davidson, was born weighing 6lb 1oz with apgars of 8 and 9 at one and five minutes of life, respectfully. NIKKI is bottle feeding baby and states that baby will be followed by Dr. Chou for pediatrics. Educational Status:? Both parents graduated from high school, NIKKI obtained her Bachelor's degree and JOHNNIE obtained his Associates degree. NO problems with reading, learning or comprehension. Financial Status: JOHNNIE is gainfully employed outside of the home working for [employer]. NIKKI works for [employer]. She works from home and is able to take 6 weeks of work off for maternity leave. Infant Supplies:?? All necessary baby supplies obtained, including: car seat, safe sleep space, clothes, diapers and wipes Childcare/Caregiver(s):? NIKKI will be the primary caregiver to baby along with JOHNNIE when he is not working. Transportation:?? Both parents have their drivers license and reliable means of transportation. NO barriers at this time. Programs/Agencies Involved: ??Parents are over income for community resources that provide financial assistance. ? Children Services/Legal Issues:??Parents were involved with children services when they obtained custody of JOHNNIE's nieces. Parents have not had any open cases with children services against them. No issues or concerns at this time warranting referral to be made. Behavioral Health Issues: ??Mental Health History:??JOHNNIE denies mental health history. But asks if mental health issues can happen to fathers after they have children. These questions answered, and JOHNNIE states that he is feeling really close to baby and states that he has been emotional since she has been born. NIKKI states that she has history of anxiety. NIKKI denies being prescribed any medications to help her manage her mental health symptoms and states that she is not. NIKKI is not connected to any mental health providers either. NIKKI states that historically she has been prescribed sertraline by her PCP and has found that to be helpful. ? Substance Use History: Parents deny substance use prior to and during . ?? Family History:??JOHNNIE states that everyone in his family has had some type of drug involvement at one point or another aside from him. JOHNNIE states that his sister is currently in usp due to substance use related offenses which also led to them having custody of her children. Sw encouraged parents to be mindful of their genetic disposition and to always utilize healthy and safe coping skills opposed to seeking comfort from drugs or alcohol. Parents expressed understanding and agreement. ??? Drug Screens: ??No drug screens seen while completing chart review. Family/Social Stressors:? Parents deny any issues or concerns at this time. Support Systems: NIKKI states that maternal grandparents are their biggest supports. Depression/Shaken Baby/Safe Sleeping:? Nika educated parents on signs and symptoms of baby blues and depression and anxiety. NIKKI states that she believes that she did struggle briefly with some baby blues after her son was born. NIKKI states that she felt slightly sad and down, however reports to always feeling a connection to baby and engaging in baby care. FOB states that NIKKI did well during that period, but he does admit that she was tearful following delivery. FOB states that if MOB were to struggle during this period he would be able to recognize that and would know how to help and support her. FOB states that he is more worried about himself going into this period, and asked sw if fathers can also experience symptoms. Sw agreed that fathers can also experience and baby blues symptoms and asked FOB if he experienced them after their son was born, FOB denies. MOB states that if FOB were to struggle she would be able to recognize that and would know how to help and support him. Sw encouraged parents to seek guidance and involvement with a mental health professional or to talk to their OBGYN about starting a low dose medication to help them get over this period. MOB and FOB expressed understanding. Sw educated parents on shaken baby prevention and ABCs of safe sleep, parents expressed understanding. ASSESSMENT:? MOB and baby admitted following labor and delivery. MOB and FOB with some feelings of anxiety. FOB states that he has never officially been diagnosed with anxiety, but finds himself feeling slightly emotional following delivery of baby. MOB states that she is feeling good and feels like herself. MOB reports to feeling a cabrera/ connection with baby, and reports to feeling happy, denies feeling down, sad, tearful or emotional. Parents were polite and talkative throughout completion of assessment. Parents talked openly about their involvement and transition to parenting their nieces. Both parent were observed to hold lovingly and provided attentive and appropriate hands on care to baby. Parents appreciative of sw involvement and support provided. Parents have obtained all necessary baby items and have natural supports in place. PLAN:? No other services requested or indicated. MOB and baby to be discharged when medically ready. Parents were provided literature regarding: signs and symptoms of baby blues and mood and anxiety disorders, Help Me Grow, shaken baby prevention, ABCs of safe sleep and a list of county resources that are available for them should any needs present themselves. Stevie Dixon, ASSOCIATE CHEMIST, OVER HAULER HELPER
[2025-04-16] MEDS: NIFEdipine 30 MG Tablet PO (14:47)
[2025-04-17] VITALS (70 sets, daily range): BP systolic 109–181; BP diastolic 54–106; PULSE 81–127; RESP 16–18; TEMP 35.9–36.9; O2SAT 80–100
[2025-04-17] MEDS: NIFEdipine 30 MG Tablet PO ×2 (02:07→14:13)
--- NOTE | 2025-04-17 08:36 | PCM.PN.OB ---
Subjective Subjective Patient doing well without complaints. Tolerating PO. Ambulating and voiding without difficulty. Feeding well. Denies chest pain, shortness of breath, calf pain/swelling, fevers, chills, lightheadedness. Objective Data Objective Data Vital Signs: Vital Signs Temp Pulse Resp BP Pulse Ox O2 Del Method 97.4 F L 110 H 18 143/86 H 98 Room Air 04/17/25 08:08 04/17/25 08:09 04/17/25 08:08 04/17/25 08:09 04/17/25 08:08 04/17/25 01:27 Oxygen Delivery Method Room Air Weight: 291 lb 0.163 oz Body Mass Index (BMI) 45.6 Intake & Output: Intake and Output for Last 24 Hours 04/15/25 04/16/25 04/17/25 23:59 23:59 23:59 Intake Total 3504.59 / 3504.59 Output Total 3350 / 3350 Balance 154.59 / 154.59 Lab / Micro Data Attestation: I reviewed the patient's lab results. 04/16/25 05:30 04/13/25 13:30 Labs: Laboratory Results - last 24 hr 04/16/25 10:47: POC Glucose 139 H 04/16/25 15:09: POC Glucose 161 H 04/16/25 19:32: POC Glucose 134 H 04/17/25 06:24: POC Glucose 117 H ROS Constitutional Constitutional: Reports systems reviewed and no addt'l complaints, except as documented; Denies anorexia or headache(s) Cardiovascular Cardiovascular: Reports systems reviewed and no addt'l complaints, except as documented; Denies dizziness, dyspnea, nausea or tachypnea Respiratory/Chest Respiratory/Chest: Reports systems reviewed and no addt'l complaints, except as documented; Denies cough, dyspnea, shortness of breath at rest or tachypnea Gastrointestinal Gastrointestinal: Reports systems reviewed and no addt'l complaints, except as documented; Denies abdominal pain, constipation or nausea Genitourinary Genitourinary: Reports systems reviewed and no addt'l complaints, except as documented; Denies burning urination, difficulty urinating, dysuria, urinary frequency or urinary incontinence Musculoskeletal Musculoskeletal: Reports systems reviewed and no addt'l complaints, except as documented Integumentary Integumentary: Reports systems reviewed and no addt'l complaints, except as documented Neurologic Neurologic: Reports systems reviewed and no addt'l complaints, except as documented; Denies abnormal speech, dizziness or headache(s) Psychiatric Psychiatric: Reports systems reviewed and no addt'l complaints, except as documented Endocrine Endocrinology: Reports systems reviewed and no addt'l complaints, except as documented Hematologic/Lymphatic Hematologic/Lymphatic: Reports systems reviewed and no addt'l complaints, except as documented Physical Exam Const alert, oriented x3 and no apparent distress Neck full ROM Resp normal respiratory effort, normal air movement and no retractions Effort and Inspection: able to speak in complete sentences and symmetric chest movement GI soft to palpation Bladder / Kidney Exam: bladder normal to palpation Uterus Palpation: uterus fundus firm Extremity normal to inspection and full ROM Psych mental status grossly normal, thought process normal and cooperative Assessment & Plan (1) delivery delivered: COMMENT: LTCS aod 6 cm failed IOL ghtn gdm girl fraser TIM PLAN: s/p LTCS PPD # 2 1. routine post care 2. breast feeding- support given 3. rh positive 4. rubella immune 5. possible discharge if BP stable (2) Arrest of dilation, delivered, current hospitalization: (3) Variable heart rate decelerations, antepartum: (4) Diabetes in : QUALIFIERS: Diabetes in type: pre-existing, type 2 Trimester: second trimester Qualified Code(s): O24.112 - Pre-existing type 2 diabetes mellitus, in , second trimester COMMENT: class B diabetes. growth US q 4 weeks. twice weekly testing 32 on with twice weekly bpp and deliver at 38 (5) GBS (group B streptococcus) UTI complicating : QUALIFIERS: Trimester: second trimester Qualified Code(s): O23.42 - Unspecified infection of urinary tract in , second trimester; B95.1 - Streptococcus, group B, as the cause of diseases classified elsewhere (6) Obesity affecting : QUALIFIERS: Trimester: second trimester Obesity type affecting : unspecified obesity Qualified Code(s): O99.212 - Obesity complicating , second trimester COMMENT: unable to get heart views. nl echo. BMI 39.2; HgBA1C ordered w/NOB (7) Family history of chromosomal abnormality: COMMENT: Slade's brother has Trisomy 21. Declines genetic testing. (8) Supervision of high-risk : QUALIFIERS: Trimester: second trimester Qualified Code(s): O09.92 - Supervision of high risk , unspecified, second trimester COMMENT: PRR , GIANFRANCO 05/01/25, girl Davidson PC: Erine (Has custody of 14yr old twin nieces, Alexis & Believe), : Slade (9) : QUALIFIERS: Weeks of gestation: 37 weeks Qualified Code(s): Z3A.37 - 37 weeks gestation of COMMENT: Discussed genetic/carrier testing - undecided, neg AFP, nl anatomy (10) Hypertension: QUALIFIERS: Hypertension type: primary hypertension Qualified Code(s): I10 - Essential (primary) hypertension COMMENT: Labetalol 200 bid if controlled plan 38 weeks delivery, plan weekly BPP and weekly nst from 32 on PLAN: increase labetalol to 400q 8 hours per SM (11) Diabetes mellitus: QUALIFIERS: Diabetes mellitus type: type 2 Diabetes mellitus long term care social worker insulin use: without long term care social worker use Diabetes mellitus complication status: without complication Qualified Code(s): E11.9 - Type 2 diabetes mellitus without complications COMMENT: Type 2 - On Metformin & insulin (12) Anxiety: COMMENT: [place] , encouraged counseling. Stable Charges/Coding Multi Select Codes Urinary/Genital Urinary/Genital CPT Codes: No Charge
[2025-04-17] MEDS: Senna/Docusate Sodium 1 Tablet PO (09:21)
[2025-04-17 13:07] LABS: Hematocrit 30.5 % (37-47); Hemoglobin 10.2 g/dL (12.0-15.0); Immature Granulocytes Count 0.080 X10^3/uL (0.0-0.0); Mean Corp Hgb Conc 33.4 g/dL (32-36); Mean Corpuscular Volume 88.7 fL (81-99); Mean Platelet Vol. 9.4 fl (6.2-12.0); NRBC Flagged by Analyzer 0 % (0-5); Platelet Count 258 K/mm3 (150-450); RBC Distribution Width CV 14.2 % (11.6-14.6); RBC Distribution Width SD 45.3 fl (35.1-43.9); Red Blood Count 3.44 M/mm3 (4.2-5.4); White Blood Count 9.6 K/mm3 (4.4-11.0)
--- NOTE | 2025-04-17 13:29 | CASEMGMT ---
Labor and delivery Brief social work note Date: 04/17/25 Time: 1215 Nika informed by bedside RN that parents are emotional today due to MOB's rising blood pressure and potential need for MAG. If MOB were to need MAG she will not be able to be discharged today, and parents were hoping to be able to be discharged. Bedside RN states that both parents are tearful and could use some support from social work. Sw presented to bedside and reintroduced self to MOB and FOB. MOB was observed sitting comfortably in reclining chair. FOB sitting on couch and baby in bassinet in front of FOB. Their 3 year old son, Ernie was also present and playing with toys. Sw asked how parents aer doing, and both of them started to cry. MOB states that she is okay, but is worried about FOB and his mental health because he is tearful and she thinks he needs to go home to rest. Sw asked FOB what is going on. FOB shook his head, and stated that he did not want to leave the baby. Sw expressed understanding, but explained to FOB, that the reason MOB is not able to be discharged today is because her blood pressure keeps rising, and FOB at bedside crying and not sleeping is not helping the situation. Sw encouraged FOB to take a step back, take Ernie home and spend some quality time with him, take a shower, try to rest for a little bit and then return to bedside. Sw stated that although JONHNIE does not want to leave the baby, he is not the best version of himself right now, and that is what she and MOB need from him. FOB stated that he knows that, but he does not know why he is having such a hard time leaving her. FOB states that he is also worried about MOB. MOB told FOB that she will be fine, and she is mostly worried about him and hopes that he gets some rest. Sw provided FOGerald an opportunity to talk, which JOHNNIE used to discuss some things throughout his childhood and his adult life that he does not normally talk about. Nika asked FOB if he would be receptive to talking to a mental health professional, and FOB stated that he would think about it, but its not really his thing. After talking and providing support for a while, FOB stated that he was feeling better. FOB states that once they know for sure as to whether MOB does or does not have to start MAG he will go home and try to get some rest before returning to the hospital. Sw offered to come back later to touch base with parents if necessary. Parents expressed understanding. Stevie Dixon, WEB FEEDER, CLOTH EXAMINER HAND
[2025-04-17 13:45] LABS: AST(SGOT) 92 U/L (<=31); Alanine Aminotransfer ALT/SGPT 64 U/L (<=34); Albumin, Serum 3.2 g/dL (3.5-5.0); Alkaline Phosphatase 93 U/L (35-104); Anion Gap 12 (5-15); BUN 9 mg/dL (4-19); BUN/Creat Ratio 15.1 RATIO (10-20); Calcium,Total 8.5 mg/dL (7.6-11.0); Carbon Dioxide 20.2 mmol/L (21.0-32.0); Chloride 106 mmol/L (98-108); Estimated Creatinine Clearance 185.88 ml/min (50-250); Globulin 3.1 g/dL (2.2-4.2); Glucose 137 mg/dL (70-99); LDH 225 U/L (84-246); Potassium 3.7 mmol/L (3.3-5.1)
[2025-04-17] MEDS: Lactated Ringers 1,000 ML 15 ML IV (14:30)
[2025-04-17] MEDS: Magnesium Sulfate 4gm/100mL 4 GM/100 ML IV.SOLN. IV (14:30)
[2025-04-17] MEDS: Magnesium Sulfate 4gm/100mL 2 GM/50 ML IV.SOLN. IV (14:51)
[2025-04-17] MEDS: Magnesium Sulfate 20 GM/500 ML BAG IV (15:05)
--- NOTE | 2025-04-17 15:21 | NURSING ---
Pt has a fan blowing on her because she is feeling hot from the Magnesium IV infusion
[2025-04-18] VITALS (18 sets, daily range): BP systolic 107–155; BP diastolic 56–85; PULSE 82–115; RESP 16–18; TEMP 36.5–36.6; O2SAT 97–100
[2025-04-18] MEDS: Magnesium Sulfate 20 GM/500 ML BAG IV (00:27)
[2025-04-18] MEDS: NIFEdipine 30 MG Tablet PO ×2 (01:55→14:03)
--- NOTE | 2025-04-18 08:01 | PCM.PN.OB ---
Subjective Subjective Patient doing well without complaints. Tolerating PO. Ambulating and voiding without difficulty. infant feeding well. Denies chest pain, shortness of breath, calf pain/swelling, fevers, chills, lightheadedness. Objective Data Objective Data Vital Signs: Vital Signs Temp Pulse Resp BP Pulse Ox O2 Del Method 97.7 F L 109 H 18 135/79 H 97 Room Air 04/18/25 07:30 04/18/25 07:30 04/18/25 07:30 04/18/25 07:30 04/18/25 07:30 04/18/25 07:30 Oxygen Delivery Method Room Air Weight: 291 lb 0.163 oz Body Mass Index (BMI) 45.6 Intake & Output: Intake and Output for Last 24 Hours 04/16/25 04/17/25 04/18/25 23:59 23:59 23:59 Intake Total 640 / 640 978.33 / 978.33 Output Total 550 / 550 1150 / 1150 Balance 90 / 90 -171.67 / -171.67 Lab / Micro Data 04/17/25 13:00 04/17/25 13:00 Labs: Laboratory Results - last 24 hr 04/17/25 10:53: POC Glucose 142 H 04/17/25 13:00: WBC 9.6, RBC 3.44 L, Hgb 10.2 L, Hct 30.5 L, MCV 88.7, MCH 29.7, MCHC 33.4, RDW Std Deviation 45.3 H, RDW Coeff of Linh 14.2, Plt Count 258, MPV 9.4, Immature Gran % (Auto) 0.800, Neut % (Auto) 60.1, Lymph % (Auto) 29.8, [place] % (Auto) 6.6, Eos % (Auto) 2.2, Baso % (Auto) 0.5, Absolute Neuts (auto) 5.8, Absolute Lymphs (auto) 2.87, Nucleated RBC % 0, Sodium 138, Potassium 3.7, Chloride 106, Carbon Dioxide 20.2 L, Anion Gap 12, BUN 9, Creatinine 0.61 L, Estim Creat Clear Calc 185.88, Est GFR (MDRD) Non-Af 121, BUN/Creatinine Ratio 15.1, Glucose 137 H, Calcium 8.5, Total Bilirubin 0.35, AST 92 H, ALT 64 H, Alkaline Phosphatase 93, Lactate Dehydrogenase 225, Total Protein 6.3, Albumin 3.2 L, Globulin 3.1, Albumin/Globulin Ratio 1.1 04/17/25 17:37: POC Glucose 152 H 04/17/25 19:44: POC Glucose 146 H 04/18/25 06:30: POC Glucose 131 H ROS Constitutional Constitutional: Reports systems reviewed and no addt'l complaints, except as documented Cardiovascular Cardiovascular: Reports systems reviewed and no addt'l complaints, except as documented Respiratory/Chest Respiratory/Chest: Reports systems reviewed and no addt'l complaints, except as documented Gastrointestinal Gastrointestinal: Reports systems reviewed and no addt'l complaints, except as documented Physical Exam Const alert, oriented x3 and no apparent distress HEENT Head and Scalp: atraumatic Resp normal respiratory effort GI soft to palpation and non-tender Inspection: incision intact, healing well and drainage (none) Bimanual Exam - Vag & Uterus: uterus non-tender Uterus Palpation: uterus fundus firm (below Umbilicus) Assessment & Plan (1) delivery delivered: COMMENT: LTCS aod 6 cm failed IOL ghtn gdm girl bria DUMONT PLAN: Plan s/p LTCS PPD # 3 1. routine post care 2. breast feeding- support given 3. rh positive 4. rubella immune recheck labs, continue antihypertensives, labetalol held metformin and SSI
[2025-04-18 09:01] LABS: Hematocrit 33.4 % (37-47); Hemoglobin 11.2 g/dL (12.0-15.0); Immature Granulocytes Count 0.080 X10^3/uL (0.0-0.0); Mean Corp Hgb Conc 33.5 g/dL (32-36); Mean Corpuscular Volume 89.1 fL (81-99); Mean Platelet Vol. 9.5 fl (6.2-12.0); NRBC Flagged by Analyzer 0 % (0-5); POSITIVE COUNT YES; RBC Distribution Width CV 14.4 % (11.6-14.6); RBC Distribution Width SD 46.4 fl (35.1-43.9); Red Blood Count 3.75 M/mm3 (4.2-5.4); White Blood Count 7.7 K/mm3 (4.4-11.0)
[2025-04-18 09:24] LABS: AST(SGOT) 72 U/L (<=31); Alanine Aminotransfer ALT/SGPT 61 U/L (<=34); Albumin, Serum 3.4 g/dL (3.5-5.0); Alkaline Phosphatase 96 U/L (35-104); Anion Gap 13 (5-15); BUN 6 mg/dL (4-19); BUN/Creat Ratio 12.2 RATIO (10-20); Calcium,Total 6.8 mg/dL (7.6-11.0); Carbon Dioxide 19.4 mmol/L (21.0-32.0); Chloride 105 mmol/L (98-108); Estimated Creatinine Clearance 222.32 ml/min (50-250); Globulin 3.1 g/dL (2.2-4.2); Glucose 143 mg/dL (70-99); Potassium 3.8 mmol/L (3.3-5.1)
[2025-04-18] MEDS: Senna/Docusate Sodium 1 Tablet PO (09:40)
[2025-04-18 09:57] LABS: Differential Indicated SCAN CRITERIA MET
[2025-04-18] MEDS: 0.9% Saline Lock 10 ML Syringe IV (10:31)
[2025-04-18 11:06] LABS: Platelet Count 296 K/mm3 (150-450)
[2025-04-19 05:13] VITALS: PULSE 79; TEMP 36.5; O2SAT 99
[2025-04-19 05:15] VITALS: BP 146/89; PULSE 76
--- NOTE | 2025-04-26 11:21 | PCM.DC.SUM ---
Providers Date of Admission: 04/13/25 Primary Care Physician: ZITA RANDOLPH MD Reason For Visit: PRIMARY C SECTION Diagnosis Discharge Diagnosis (1) delivery delivered: Status: Acute Code(s): O82 - Encounter for delivery without indication Plan s/p LTCS PPD # 3 1. routine post care 2. breast feeding- support given 3. rh positive 4. rubella immune recheck labs, continue antihypertensives, labetalol held metformin and SSI Medications at Discharge Home Medications sertraline 50 mg tablet (Zoloft) 50 mg PO DAILY Check with primary doctor 11/05/20 metformin 500 mg tablet 500 mg PO BID Check with primary doctor 09/08/24 blood-glucose sensor (FreeStyle Kelsea 3 Plus Sensor device) #6 ea 09/25/24 pen needle, diabetic 32 gauge x 5/32 (BD Ultra-Fine Kiah Pen Needle) #150 ea 09/25/24 insulin glargine 100 unit/mL (3 mL) subcutaneous pen (Lantus Solostar U-100 Insulin) 55 unit subcut BID DM 03/16/25 insulin lispro 100 unit/mL subcutaneous pen 22 unit subcut .COMPLEX Diabetic 03/16/25 labetalol 200 mg tablet 200 mg PO BID htn 03/16/25 naproxen 500 mg tablet 500 mg PO BID PRN PRN Pain #30 tabs 04/15/25 oxycodone-acetaminophen 5 mg-325 mg tablet (Percocet) 1 tab PO Q4H PRN pain 7 days #20 tabs 04/15/25 miscellaneous medical supply (Blood Pressure Cuff) #1 ea 04/17/25 labetalol 300 mg tablet 300 mg PO TID #90 tabs 04/18/25 naproxen 500 mg tablet 500 mg PO BID PRN PRN Pain #30 tabs 04/18/25 nifedipine 30 mg tablet,extended release 24 hr (Procardia XL) 30 mg PO BID #60 tabs 04/18/25 oxycodone-acetaminophen 5 mg-325 mg tablet (Percocet) 1 tab PO Q4H PRN pain 7 days #20 tabs 04/18/25 Hospital Course Summary of Care Provided Hospital Course: Patient was admitted for induction of labor secondary to variable decelerations in the heart rate due to history of diabetes and chronic hypertension patient had a failed induction and arrest of dilation and underwent a section and then developed severe preeclampsia and was started on additional antihypertensives with a higher dose of labetalol and additionally Procardia was added. Patient was stable for discharge to home and on the medications and was followed closely . Weight / BMI Weight Weight: 291 lb 0.163 oz Body Mass Index (BMI) 45.6 ABG / Lab / Microbiology Data 04/18/25 10:57 04/18/25 08:40 D/C Instructions May shower in (days): 0 May resume sexual activity in: 4-6 weeks Weight Bearing Status: Full weight bearing Call your doctor if your incision/area has: Continuous Slow Oozing, Sudden Increased Bleeding, Increased Pain/ Swelling, Increased Redness and Foul Smelling Discharge Call your doctor if you observe: Fever of 101 or Higher and Using more than 1 pad per hour (for 2 hours) Suture Line Care: Avoid Pulling/Pushing and Avoid Pinching/Bending Cleanse incision/area with: Soap & Water and Keep Dressing Clean & Dry DC O2, CPAP, BIPAP Needs Home O2 Discharge instructions: No Please Follow Up With: Mae Reeves MD When: Call [phone] to make an appointment for an incision check in 1-2 weeks. Meaningful Use Info Meaningful Use Meaningful Use Diagnoses (Choose all that apply): None applicable Discharge Plan Admission Admit Date/Time: 04/13/25 12:15 Attending Provider: Mae Reeves Primary Care Provider: ZITA RANDOLPH Instructions Patient Instructions: After a Delivery (WP), Understanding Preeclampsia Additional Instructions / Restrictions: - Dr. Reeves will send prescription for labetalol 300 mg to [facility] tomorrow morning, if not notified by 10 am, call office - Send a portal message with home blood pressures to office on Wednesday, - Make office appointment next week for BP check and labwork Discharge Orders/Prescriptions Prescriptions: New oxycodone-acetaminophen [Percocet] 5-325 mg tablet 1 tab PO Q4H PRN (Reason: pain) 7 Days Qty: 20 0RF naproxen 500 mg tablet 500 mg PO BID PRN PRN (Reason: Pain) Qty: 30 1RF (DME) Blood Pressure Cuff Misc See Rx Instructions .Route Qty: 1 0RF Rx Instructions: As directed nifedipine [Procardia XL] 30 mg tablet extended release 24hr 30 mg PO BID Qty: 60 2RF labetalol 300 mg tablet 300 mg PO TID Qty: 90 1RF oxycodone-acetaminophen [Percocet] 5-325 mg tablet 1 tab PO Q4H PRN (Reason: pain) 7 Days Qty: 20 0RF naproxen 500 mg tablet 500 mg PO BID PRN PRN (Reason: Pain) Qty: 30 1RF No Action sertraline [Zoloft] 50 mg tablet 50 mg PO DAILY metformin 500 mg tablet 500 mg PO BID Rx Instructions: 2 in AM; 2 at bedtime (DME) FreeStyle Kelsea 3 Plus Sensor Device See Rx Instructions .Route Qty: 6 2RF Rx Instructions: As directed (DME) pen needle, diabetic [BD Ultra-Fine Kiah Pen Needle] 32 gauge x 5/32 needle See Rx Instructions .ROUTE .MEDSUPPLY Qty: 150 6RF Rx Instructions: 4 times per day labetalol 200 mg tablet 200 mg PO BID insulin lispro 100 unit/mL insulin pen 22 unit subcut .COMPLEX Rx Instructions: 22 units subcutaneously breakfast and lunch; 26 unit with dinner insulin glargine [Lantus Solostar U-100 Insulin] 100 unit/mL (3 mL) insulin pen 55 unit subcut BID Referrals / Follow Up: ZITA RANDOLPH MD [Primary Care Provider, Family Practice] Disposition Disposition (needs filled in before D/C Order can be placed): Home, Self Care
== END 2025-04-18 19:40 | disposition home or self-care (01) | DRG 786 ==
LOC: WP 12:25
PROVIDERS: Advanced Practice Midwife; Admitting Provider Obstetrics & Gynecology; PCP Family Medicine; Visit Provider Obstetrics & Gynecology
DX: O76 Abnormality in fetal heart rate and rhythm complicating labor and delivery (principal); O24.12 Pre-existing type 2 diabetes mellitus, in childbirth; O10.02 Pre-existing essential hypertension complicating childbirth; O11.5 Pre-existing hypertension with pre-eclampsia, complicating the puerperium; O99.214 Obesity complicating childbirth; E11.9 Type 2 diabetes mellitus without complications; F41.9 Anxiety disorder, unspecified; Z79.4 Long term (current) use of insulin; O99.344 Other mental disorders complicating childbirth; O62.0 Primary inadequate contractions; O61.0 Failed medical induction of labor; O61.1 Failed instrumental induction of labor; O99.824 Streptococcus B carrier state complicating childbirth; Z37.0 Single live birth; Z3A.37 37 weeks gestation of pregnancy; Z79.84 Long term (current) use of oral hypoglycemic drugs; Z79.899 Other long term (current) drug therapy; Z3A.38 38 weeks gestation of pregnancy
CPT/HCPCS: 59025; 59050; 76815; 76819; 80053; 82565; 82570; 82962; 83615; 84156; 84450; 84460; 84550; 85025; 85027; 85049; 86780; 86850; 86900; 86901; 99221; A4216; G0378; J2405

== ENCOUNTER → 2025-05-21 | Outpatient (CLI) | payer BC, SELFPAY ==
--- NOTE | 2025-05-21 15:28 | VDLE_ITS ---
Reason For Study Reason For Study: Swelling RIGHT LEFT CFV is compressible, spontaneous, phasic, competent GSV is normal. and demonstrates normal augmentation. CFV is compressible, spontaneous, phasic, competent, Procedure and demonstrates normal augmentation. This is a venous duplex using B-mode, color flow and FV is compressible, spontaneous, phasic, competent spectral Doppler. and demonstrates normal augmentation. Exam performed in department. POP V is compressible, spontaneous, phasic, competent A preliminary report was called and/or faxed to and demonstrates normal augmentation. Mae Reeves MD. T/P Trunk is compressible. PTV is compressible. LT PerV is compressible. VL/Venous Duplex US, Unilateral Interpretation Summary Deep veins of the left lower extremity are patent and compressible segmentally. There is no evidence of left lower extremity deep vein thrombosis. The left great saphenous vein appears patent an d compressible segmentally. Ordering Physician: Mae Reeves Referring Physician: Nina Tovar MD Performed By: Liane López RVT
--- NOTE | 2025-05-21 15:28 | VDLE_ITS ---
Reason For Study Reason For Study: Swelling RIGHT LEFT CFV is compressible, spontaneous, phasic, competent GSV is normal. and demonstrates normal augmentation. CFV is compressible, spontaneous, phasic, competent, Procedure and demonstrates normal augmentation. This is a venous duplex using B-mode, color flow and FV is compressible, spontaneous, phasic, competent spectral Doppler. and demonstrates normal augmentation. Exam performed in department. POP V is compressible, spontaneous, phasic, competent A preliminary report was called and/or faxed to and demonstrates normal augmentation. Mae Reeves MD. T/P Trunk is compressible. PTV is compressible. LT PerV is compressible. VL/Venous Duplex US, Unilateral Interpretation Summary Deep veins of the left lower extremity are patent and compressible segmentally. There is no evidence of left lower extremity deep vein thrombosis. The left great saphenous vein appears patent an d compressible segmentally. Ordering Physician: Mae Reeves Referring Physician: Nina Tovar MD Performed By: Liane López RVT
== END | disposition home or self-care (01) ==
LOC: CVS 15:27
PROVIDERS: PCP Family Medicine; Referring Provider Obstetrics & Gynecology; Visit Provider Obstetrics & Gynecology
DX: R60.0 Localized edema (principal); I70.92 Chronic total occlusion of artery of the extremities
CPT/HCPCS: 93971

== ENCOUNTER → 2025-05-21 | Outpatient (CLI) | payer BC, SELFPAY ==
[2025-05-21 14:53] LABS: Hematocrit 38.5 % (37-47); Hemoglobin 13.0 g/dL (12.0-15.0); Immature Granulocytes Count 0.040 X10^3/uL (0.0-0.0); Mean Corp Hgb Conc 33.8 g/dL (32-36); Mean Corpuscular Volume 85.6 fL (81-99); Mean Platelet Vol. 10.3 fl (6.2-12.0); NRBC Flagged by Analyzer 0 % (0-5); Platelet Count 382 K/mm3 (150-450); RBC Distribution Width CV 12.7 % (11.6-14.6); RBC Distribution Width SD 38.9 fl (35.1-43.9); Red Blood Count 4.50 M/mm3 (4.2-5.4); White Blood Count 10.6 K/mm3 (4.4-11.0)
[2025-05-21 15:42] LABS: AST(SGOT) 45 U/L (<=31); Alanine Aminotransfer ALT/SGPT 69 U/L (<=34); Albumin, Serum 4.4 g/dL (3.5-5.0); Alkaline Phosphatase 101 U/L (35-104); Anion Gap 15 (5-15); BUN 8 mg/dL (4-19); BUN/Creat Ratio 11.7 RATIO (10-20); Calcium,Total 9.1 mg/dL (7.6-11.0); Carbon Dioxide 21.2 mmol/L (21.0-32.0); Chloride 102 mmol/L (98-108); Globulin 2.8 g/dL (2.2-4.2); Glucose 178 mg/dL (70-99); Potassium 4.3 mmol/L (3.3-5.1)
== END | disposition home or self-care (01) ==
PROVIDERS: PCP Family Medicine; Referring Provider Obstetrics & Gynecology; Visit Provider Obstetrics & Gynecology
DX: R60.0 Localized edema (principal)
CPT/HCPCS: 36415; 80053; 85025